=== PATIENT | male | born 1985 | race Caucasian/White ===

== ENCOUNTER 2022-04-24 15:39 | Emergency (ER) | payer OTHER ==
[2022-04-24 16:54] LABS: Absolute Lymphocytes (CBC) 2.1 K/uL (0.7-4.9); Hematocrit 37.7 % (39.6-49.0); Lymphocytes % 17.7 % (15.3-44.8); MPV 6.8 fL (7.6-11.3); RBC Red Blood Cell Count 4.39 M/uL (4.33-5.43)
[2022-04-24 17:11] LABS: Albumin 2.6 g/dL (3.4-5.0); Bilirubin Total 0.2 mg/dL (0.2-1.0); Potassium 3.8 mmol/L (3.5-5.1); Protein, Total 7.9 g/dL (6.4-8.2)
--- NOTE | 2022-04-24 17:13 | RAD REPORT ---
EXAM DESCRIPTION: RAD - Chest Single View - 04/24/2022 5:03 pm CLINICAL HISTORY: COUGH COMPARISON: No comparisons FINDINGS: Lines: None. Lungs: Patchy airspace disease in the lung bases bilaterally. Pleural: Right pleural effusion. Possible small left effusion . Cardiac: The heart size is within normal limits. Mediastinum: Within normal limits. Bones: No acute fractures. Other: None IMPRESSION: Basilar airspace disease bilaterally concerning for pneumonia.
[2022-04-24] MEDS ORDERED: CEFEPIME 2 GM VIAL ONE (17:38)
[2022-04-24] MEDS ORDERED: NA CHLORIDE 0.9% 100 ML IV ONE (17:38)
[2022-04-24] MEDS ORDERED: NA CHLORIDE 0.9% 250 ML ONE (17:38)
[2022-04-24] MEDS ORDERED: NA CHLORIDE 0.9% 500 ML ONE (17:38)
[2022-04-24] MEDS ORDERED: VANCOMYCIN 1 GM/VIAL ONE (17:38)
[2022-04-24 17:51] LABS: SARS-CoV-2 Antigen Rapid Res Negative (Negative)
--- NOTE | 2022-04-24 19:14 | RAD REPORT ---
EXAM DESCRIPTION: CT - Thorax Wo Con - 04/24/2022 6:50 pm CLINICAL HISTORY: Pneumonia, unresolved COMPARISON: No comparisons FINDINGS: Chest Wall: No suspicious thyroid nodules or pathologic lymphadenopathy. Lungs: Consolidative airspace disease is present in the lower lobes bilaterally. The consolidation is more notable around the subpleural portions of the lung. Some nonspecific ground-glass opacities are present in the right middle lobe. Pleura: Small bilateral pleural effusions, right greater than left. Mediastinum/edwardo: No pathologic lymphadenopathy. Pulmonary arteries/Aorta: Limited evaluation without contrast. No aortic aneurysm. Heart: No significant pericardial effusion. Normal heart size. Upper abdomen: No acute abnormality. Bones: No acute abnormality. Scoliosis. All CT scans are performed using dose optimization technique as appropriate and may include automated exposure control or mA/KV adjustment according to patient size. IMPRESSION: Bilateral pleural effusions which are small. Subjacent consolidative airspace disease. T sarah no priors are available for comparison, suspect at least some of these findings are chronic and reactive to the pleural effusions. Pneumonia/ pneumonitis cannot be excluded without comparisons, shanice [place].
--- NOTE | 2022-04-24 20:38 | ER ---
Nurse's Notes [facility] Name: Kashif Lea Age: 36 yrs Sex: Male : 1985 Arrival Date: 04/24/2022 Time: 15:43 Bed 6 Private MD: Diagnosis: Pneumonia, unspecified organism-Bilateral;Dyspnea, unspecified Presentation: 04/24 15:48 Chief complaint: EMS states: toned out for SOB. Upon arrival to pt home - pt 97% SpO2 ld1 room air. admissions counselor reports recent hospitalization for double pneumonia. Coronavirus screen: At this time, the client does not indicate any symptoms associated with coronavirus-19. Ebola Screen: No symptoms or risks identified at this time. Initial Sepsis Screen: Does the patient meet any 2 criteria? No. Patient's initial sepsis screen is negative. Does the patient have a suspected source of infection? No. Patient's initial sepsis screen is negative. Risk Assessment: Do you want to hurt yourself or someone else? Patient reports no desire to harm self or others. Onset of symptoms was April 24, 2022 at 15:50. 15:48 Method Of Arrival: EMS: [facility] ld1 15:48 Acuity: JESENIA 3 ld1 Triage Assessment: 15:50 General: Appears in no apparent distress. comfortable, Behavior is calm, cooperative, ld1 appropriate for age. Pain: Unable to use pain scale. Does not appear to understand pain scale. EENT: No signs and/or symptoms were reported regarding the EENT system. Neuro: Level of Consciousness is awake, alert, Oriented to none. Cardiovascular: Capillary refill < 3 seconds Patient's skin is warm and dry. Rhythm is sinus rhythm. Respiratory: Airway is patent Respiratory effort is even, labored, Breath sounds with crackles bilaterally. the patient has mild shortness of breath Parent/caregiver reports the patient having shortness of breath cough that is. GI: Abdomen is round non-distended. : No signs and/or symptoms were reported regarding the genitourinary system. Derm: No signs and/or symptoms reported regarding the dermatologic system. Musculoskeletal: No signs and/or symptoms reported regarding the musculoskeletal system. Historical: - Allergies: 15:50 No Known Allergies; ld1 - Home Meds: 17:53 Mayitopp 2000 Oral tab 1 tab 2 times per day [Active]; lacosamide 300 oral tab 1 tab 2 ld1 times per day [Active]; glycopyrrolate 1 mg oral tab twice a day [Active]; clobazam 10 mg oral tab 1 tab once daily [Active]; cetirizine 10 mg oral tab 1 tab once daily [Active]; zinc sulfate 50 mg zinc (220 mg) oral cap twice a day [Active]; Vitamin C 1,000 mg Oral tab [Active]; Vitamin D Oral 2000 unit nightly [Active]; - PMHx: 15:50 scoliosis; Cerebral palsy; Seizure; ld1 - PSHx: 17:53 None; ld1 - Immunization history:: Adult Immunizations up to date, Client reports receiving the 2nd dose of the Covid vaccine. - Social history:: Smoking status: Patient denies any tobacco usage or history of. Patient/guardian denies using alcohol. - Family history:: not pertinent. Screenin:52 [facility] ED Fall Risk Assessment (Adult) History of falling in the last 3 months, ld1 including since admission No falls in past 3 months (0 pts). Abuse screen: Denies threats or abuse. Denies injuries from another. Nutritional screening: No deficits noted. Tuberculosis screening: No symptoms or risk factors identified. Assessment: 15:52 Reassessment: See triage assessment. ld1 17:04 Reassessment: Patient appears in no apparent distress at this time. Patient and/or ld1 family updated on plan of care and expected duration. Pain level reassessed. Pt family/caregiver at bedside. Pt awake - RR 21. 17:56 Reassessment: Patient appears in no apparent distress at this time. Patient and/or ld1 family updated on plan of care and expected duration. Pain level reassessed. 23:04 Reassessment: pt accepted to [facility] 4th floor room B428. bb Vital Signs: 15:48 BP 120 / 90; Pulse 95; Resp 26; Temp 97.3(A); Pulse Ox 97% on R/A; Weight 63.05 kg; ld1 Height 5 ft. 6 in. (167.64 cm); Pain 0/10; 17:05 BP 114 / 94; Pulse 93; Resp 26; Pulse Ox 98% on R/A; ld1 17:56 BP 109 / 90; Pulse 96; Resp 22; Temp 97.9(A); Pulse Ox 95% on R/A; ld1 18:12 BP 119 / 95; Pulse 96; Resp 22; Pulse Ox 96% on R/A; ld1 15:48 Body Mass Index 22.43 (63.05 kg, 167.64 cm) ld1 ED Course: 15:43 Patient arrived in ED. kr3 15:44 Wilfrido Barfield MD is Attending Physician. rt 15:48 Iwona Hernández RN is Primary Nurse. ld1 15:50 Triage completed. ld1 15:50 Arm band placed on right wrist. ld1 15:52 Patient has correct armband on for positive identification. Placed in gown. Bed in low ld1 position. map clerk on. Pulse ox on. NIBP on. Door closed. Noise minimized. Warm blanket given. 15:52 No provider procedures requiring assistance completed. ld1 15:53 Iwona Hernández RN is Primary Nurse. ld1 16:00 Inserted saline lock: 20 gauge in right wrist, using aseptic technique. Blood collected.ld1 17:04 Repositioned patient. ld1 17:05 Chest Single View XRAY In Process Unspecified. EDMS 18:49 initiated transfer to [facility]. bd 18:51 CT Chest Wo Con In Process Unspecified. EDMS 19:25 Primary Nurse role handed off by Iwona Hernández RN [facility] 19:38 Attending Physician role handed off by Wilfrido Barfield MD rn 19:38 Edward Shaw MD is Attending Physician. rn 20:[address] Shaw with Dr. Robles from [facility]. mw2 23:04 administrative approval given by Ce Friend/patient has been accepted to [address] to bed B428/ Dr. Perez accepted the patient in transfer/report to be called to [phone]. 23:15 Lucina Zheng, AMY is Primary Nurse. kd3 23:48 Patient transferred, IV remains in place. kd3 Administered Medications: 17:52 Drug: NS 0.9% 500 ml Route: IV; Rate: bolus; Site: right wrist; ld1 18:38 Follow up: Response: No adverse reaction; IV Status: Completed infusion; IV Intake: ld1 500ml 17:52 Drug: Cefepime 2 grams Route: IVPB; Rate: 200 ml/hr; Infused Over: 30 mins; Site: right ld1 wrist; 18:38 Follow up: Response: No adverse reaction; IV Status: Completed infusion; IV Intake: ld1 100ml 18:38 Drug: vancoMYCIN 1 grams Route: IVPB; Infused Over: 2 hrs; Site: right wrist; ld1 23:48 Follow up: Response: No adverse reaction; IV Status: Completed infusion kd3 Medication: 15:52 VIS not applicable for this client. ld1 Intake: 18:38 IV: 100ml; Total: 100ml. ld1 18:38 IV: 500ml; Total: 600ml. ld1 Outcome: 20:38 ER care complete, transfer ordered by . rn 23:47 Transferred by ground EMS kd3 23:47 Condition: stable 23:47 Discharge instructions given to patient, family, Instructed on discharge instructions, follow up and referral plans. Demonstrated understanding of instructions, follow-up care. 23:48 Patient left the ED. kd3 Signatures: Dispatcher [employer] EDMS Vivi Muller Brenda, RN RN bb Edward Shaw MD MD rn Gatti, MyKena mw2 Iwona Hernández RN RN ld1 Lucina Zheng RN RN kd3 Thais Tilley RN RN kr3 Wilfrido Barfield MD MD rt
--- NOTE | 2022-04-24 20:38 | EDPHYS ---
Physician Documentation [facility] Name: Kashif Lea Age: 36 yrs Sex: Male : 1985 Arrival Date: 04/24/2022 Time: 15:43 Bed 6 Private MD: ED Physician Edward Shaw HPI: 04/24 17:12 This 36 yrs old Male presents to ER via EMS with complaints of Shortness Of Breath. rt 17:12 The patient has shortness of breath at rest. Onset: The symptoms/episode began/occurred rt yesterday. Duration: The symptoms are continuous. The patient's shortness of breath has no apparent modifying factors. Unable to obtain HPI due to Baseline intellectual disability. Patient with history of cerebral palsy with recent admission to [facility] for a bilateral pneumonia as well as a pleural effusion resents to the ED with worsening cough. He is still taking clindamycin from his recent pneumonia which was deemed to be an aspiration pneumonia. The patient's sister is providing the history, she states that he has had a cough, nonproductive. She denies any labored breathing. Denies other acute complaints at this time. Symptoms are moderate in severity, no other aggravating alleviating factors.. Historical: - Allergies: 15:50 No Known Allergies; ld1 - Home Meds: 17:53 Keppra 2000 Oral tab 1 tab 2 times per day [Active]; lacosamide 300 oral tab 1 tab 2 ld1 times per day [Active]; glycopyrrolate 1 mg oral tab twice a day [Active]; clobazam 10 mg oral tab 1 tab once daily [Active]; cetirizine 10 mg oral tab 1 tab once daily [Active]; zinc sulfate 50 mg zinc (220 mg) oral cap twice a day [Active]; Vitamin C 1,000 mg Oral tab [Active]; Vitamin D Oral 2000 unit nightly [Active]; - PMHx: 15:50 scoliosis; Cerebral palsy; Seizure; ld1 - PSHx: 17:53 None; ld1 - Immunization history:: Adult Immunizations up to date, Client reports receiving the 2nd dose of the Covid vaccine. - Social history:: Smoking status: Patient denies any tobacco usage or history of. Patient/guardian denies using alcohol. - Family history:: not pertinent. ROS: 17:12 Respiratory: Positive for cough. rt 17:12 Unable to obtain ROS due to Baseline intellectual disability. Exam: 17:12 Head/Face: Normocephalic, atraumatic. Eyes: Pupils equal round and reactive to light, rt extra-ocular motions intact. Lids and lashes normal. Conjunctiva and sclera are non-icteric and not injected. Cornea within normal limits. Periorbital areas with no swelling, redness, or edema. ENT: Nares patent. No nasal discharge, no septal abnormalities noted. Tympanic membranes are normal and external auditory canals are clear. Oropharynx with no redness, swelling, or masses, exudates, or evidence of obstruction, uvula midline. Mucous membranes moist. Neck: Trachea midline, no thyromegaly or masses palpated, and no cervical lymphadenopathy. Supple, full range of motion without nuchal rigidity, or vertebral point tenderness. No Meningismus. Chest/axilla: Normal chest wall appearance and motion. Nontender with no deformity. No lesions are appreciated. Cardiovascular: Regular rate and rhythm with a normal S1 and S2. No gallops, murmurs, or rubs. Normal PMI, no JVD. No pulse deficits. Abdomen/GI: Soft, non-tender, with normal bowel sounds. No distension or tympany. No guarding or rebound. No evidence of tenderness throughout. Skin: Warm, dry with normal turgor. Normal color with no rashes, no lesions, and no evidence of cellulitis. MS/ Extremity: Pulses equal, no cyanosis. Neurovascular intact. Full, normal range of motion. 17:12 Constitutional: The patient appears in obvious distress, Chronically ill-appearing, no acute distress 17:12 Respiratory: Crackles heard on the right lung base, no respiratory distress. Vital Signs: 15:48 BP 120 / 90; Pulse 95; Resp 26; Temp 97.3(A); Pulse Ox 97% on R/A; Weight 63.05 kg; ld1 Height 5 ft. 6 in. (167.64 cm); Pain 0/10; 17:05 BP 114 / 94; Pulse 93; Resp 26; Pulse Ox 98% on R/A; ld1 17:56 BP 109 / 90; Pulse 96; Resp 22; Temp 97.9(A); Pulse Ox 95% on R/A; ld1 18:12 BP 119 / 95; Pulse 96; Resp 22; Pulse Ox 96% on R/A; ld1 15:48 Body Mass Index 22.43 (63.05 kg, 167.64 cm) ld1 MDM: 15:52 Patient medically screened. rt 20:35 Differential diagnosis: Anemia Anxiety Reaction pneumonia, Pneumothorax pulmonary rn edema, Sepsis. Data reviewed: vital signs, nurses notes, lab test result(s), radiologic studies, CT scan, plain films, and as a result, I will admit patient. Counseling: I had a detailed discussion with the patient and/or guardian regarding: the historical points, exam findings, and any diagnostic results supporting the discharge/admit diagnosis, lab results, radiology results, the need to transfer to another facility. Response to treatment: the patient's symptoms have mildly improved after treatment, and as a result, I will admit patient. ED course: Pt accepted for transfer to [facility], [facility], stable for transfer. . 04/24 16:03 Order name: CBC with Diff; Complete Time: 17:11 rt 04/24 16:03 Order name: CMP; Complete Time: 17:11 rt 04/24 16:03 Order name: Lactate w/ 2H reflex if indic.; Complete Time: 17:14 rt 04/24 16:03 Order name: Chest Single View XRAY; Complete Time: 17:14 rt 04/24 16:03 Order name: Blood Culture Adult (2) rt 04/24 17:23 Order name: SARS RAPID; Complete Time: 17:55 ld1 04/24 18:05 Order name: CT Chest Wo Con; Complete Time: 19:16 rt Administered Medications: 17:52 Drug: NS 0.9% 500 ml Route: IV; Rate: bolus; Site: right wrist; ld1 18:38 Follow up: Response: No adverse reaction; IV Status: Completed infusion; IV Intake: ld1 500ml 17:52 Drug: Cefepime 2 grams Route: IVPB; Rate: 200 ml/hr; Infused Over: 30 mins; Site: right ld1 wrist; 18:38 Follow up: Response: No adverse reaction; IV Status: Completed infusion; IV Intake: ld1 100ml 18:38 Drug: vancoMYCIN 1 grams Route: IVPB; Infused Over: 2 hrs; Site: right wrist; ld1 23:48 Follow up: Response: No adverse reaction; IV Status: Completed infusion kd3 Disposition Summary: 04/24/22 20:38 Transfer Ordered Transfer Location: [facility] rn Reason: Higher level of care rn Condition: Stable rn Problem: an ongoing problem rn Symptoms: have improved rn Accepting Physician: (04/24/22 23:48) kd3 Diagnosis - Pneumonia, unspecified organism - Bilateral rn - Dyspnea, unspecified rn Forms: - Medication Reconciliation Form rn - SBAR form rn Signatures: Dispatcher [employer] EDEdward Rowe MD MD rn Dibbern, Lauren RN RN ld1 Lucina Zheng, RN RN kd3 Wilfrido Barfield MD MD rt Corrections: (The following items were deleted from the chart) 23:48 20:38 rn kd3
[2022-04-25 05:13] VITALS: TEMP 97.9
[2022-04-25 05:15] VITALS: BP 119/95; O2SAT 96
== END 2022-04-24 23:48 | disposition short-term general hospital (02) ==
LOC: ER 15:39
DX: J18.9 Pneumonia, unspecified organism (principal); Z20.822 Contact with and (suspected) exposure to COVID-19; G80.9 Cerebral palsy, unspecified
CPT/HCPCS: 87040 ×2; 85025; 36415; 83605; 80053; 71250; 71045; 87811; J3370; J0692; J7050; J7040; 87205

== ENCOUNTER 2022-06-26 13:51 | Inpatient (IN) | payer OTHER ==
--- OUTSIDE RECORDS SUMMARY | 2022-06-26 14:17 | XMS REPORT | Continuity of Care Document ---
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 TABS 0-10 by mouth [place] 00:00: nightly. of Medicin e cloBAZam 10 2021-04 Yes 15mg Take 15 mg Richi MG TABS 0-10 by mouth [place] 00:00: nightly. of Medicin e Lacosamide 2021-04- No 200mg Take 200 [facility] 200 MG TABS 0-10 01-03 mg by [facility] 00:[facility]: 00:00 mouth two of 00 :00 times Medicin daily. e Brand name medically neccessary glycopyrrol Yes [id number] 1mg Take 1 Richi ate 9-28 Tablet by [place] (JEAN-PAUL) 1 00:00: mouth 3 of MG tablet 00 times Medicin daily. e glycopyrrol Yes [id number] 1mg Take 1 Richi ate 9-28 Tablet by [place] (JEAN-PAUL) 1 00:00: mouth 3 of MG tablet 00 times Medicin daily. e clotrimazol Yes [id number] 1{appli Apply 1 [facility] e 9-13 cation} applicatio [facility] (LOTRIMIN) 00:00: n of 1 % cream 00 topically Medic in two times e daily. clotrimazol Yes [id number] 1{appli Apply 1 [facility] e 9-13 cation} [facility]atio [facility] (LOTRIMIN) 00:00: n of 1 % cream 00 topically Medic in two times e daily. clotrimazol Yes [id number] 1{appli Apply 1 [facility] e 9-13 cation} applicatio [facility] (LOTRIMIN) 00:00: n of 1 % cream 00 topically Medic in two times e daily. Scopolamine 2022- No [id number] 1{patch Place 1 Richi 1 MG/3DAYS 12-19 } Patch onto [facility] [id number] 00:00: 00:00 the skin of 00 :00 every 3 Medicin days. e cetirizine, Yes [id number] 10mg Take 1 [facility] ZYRTEC, 10 8-22 Tablet by [place] MG tablet 00:00: mouth of 00 daily. Medicin e cetirizine, Yes [id number] 10mg Take 1 [facility] ZYRTEC, 10 8-22 Tablet by [place] MG tablet 00:00: mouth of 00 daily. Medicin e cetirizine, 2022- No [id number] 10mg Take 1 [facility] ZYRTEC, 10 8-22 02-20 Tablet by [facility] MG tablet 00:00: 00:00 mouth of 00 :00 daily. Medicin e cloBAZam 0 Yes 10mg QD Take [address] [facility] (ONFI) 10 8-12 tablet (10 [facility] mg Tab 00:00: mg total) Medica l tablet 00 by mouth Center nightly. Max Daily Amount: 10 mg cloBAZam Yes 10mg QD Take [address] [facility] (ONFI) 10 8-12 tablet (10 [facility] mg Tab 00:00: mg total) Medica l tablet 00 by mouth Center nightly. Max Daily Amount: 10 mg imipramine 2022- No [id number] TAKE 1 [facility] (TOFRANIL) 5-23 01-03 TABLET(10 [facility]ge 10 MG 00:00: 00:00 MG) BY of tablet 00 :00 MOUTH Medicin EVERY e NIGHT Zinc 15 MG 2021-0 Yes 50mg Take 50 mg [facility] CAPS 3-15 by mouth [place] 16:12: two times of 21 daily. Medicin e Cholecalcif Yes 5000U Take 5,000 [facility] leeroy 3-15 Units by [place] (VITAMIN 16:12: mouth of D3) 125 MCG 21 daily. Medici n (5000 UT) e CAPS atorvastati 2021-0 Yes [id number] 10mg Take 1 [facility] n (LIPITOR) 2-01 Tablet by Col [facility]ge 10 MG 00:00: mouth of tablet 00 daily. Medicin e cetirizine, Yes [id number] 10mg Take 1 [facility] ZYRTEC, 10 2-01 Tablet by [place] MG tablet 00:00: mouth of 00 daily. Medicin e Zinc 15 MG 2021-0 Yes 50mg Take 50 mg [facility] CAPS 1-03 by mouth [place] 13:02: two times of 37 daily. Medicin e Cholecalcif Yes 5000U Take 5,000 [facility] leeroy 1-03 Units by [place] (VITAMIN 13:02: mouth of D3) 125 MCG 37 daily. Medici n (5000 UT) e CAPS imipramine 2020-04 Yes 10mg Take 10 mg [facility] (TOFRANIL) 2-25 by mouth Colle ge 10 MG 00:00: daily. of tablet 00 Medicin e imipramine 2020-04 Yes 10mg Take 10 mg [facility] (TOFRANIL) 2-25 by mouth Colle ge 10 MG 00:00: daily. of tablet 00 Medicin e metoprolol 2020-04 Yes 50mg Take 50 mg [facility] (LOPRESSOR) 2-24 by mouth 3 Co llege 50 MG 00:00: times of tablet 00 daily. Medicin e cetirizine, 2020-04 Yes 10mg Take 10 mg Richi ZYRTEC, 10 2-20 by mouth Colle [facility] MG tablet 00:00: daily. of 00 Medicin e atorvastati 2020-04 Yes 10mg Take 10 mg [facility] n (LIPITOR) 2-19 by mouth [place] 10 MG 00:00: daily. of tablet 00 Medicin e levetiracet Yes 1500mg Take 1,500 [facility] am (KEPPRA) 5-24 mg by [place] 500 MG 00:00: mouth two of tablet 00 times Medicin daily. e levetiracet Yes 1500mg Take 1,500 Richi am (KEPPRA) 5-24 mg by [place] 500 MG 00:00: mouth two of tablet 00 times Medicin daily. e Lacosamide Yes 200mg Take 200 [facility] [place] 200 mg 5-11 mg by ity of tablet 21:04: mouth 2 [place] 25 (two) Medical times Branch daily. Lacosamide Yes 200mg Take 200 [facility] [place] 200 mg 5-11 mg by ity of tablet 21:04: mouth 2 [place] 25 (two) Medical times Branch daily. Lacosamide Yes 200mg Take 200 [facility] [place] 200 mg 5-11 mg by ity of tablet 21:04: mouth 2 [place] 25 (two) Medical times Branch daily. Lacosamide 2021-0 Yes 200mg Take 200 [place] 200 mg 5-11 mg by ity of tablet 21:04: mouth 2 [place] 25 (two) Medical times Branch daily. Lacosamide 2021-0 Yes 200mg Take 200 [place] 200 mg 5-11 mg by ity of tablet 21:04: mouth 2 [place] 25 (two) Medical times Branch daily. levetiracet 2021-0 Yes 1500mg Take 1,500 [facility] am (KEPPRA 5-11 mg by ity of ORAL) 21:00: mouth 2 [place] 40 (two) Medical times Branch daily. phenytoin 1-0 Yes Take by Unive rs 100 mg/4 mL 5-11 mouth 3 ity o f [place] 21:00: (three[place] Medical daily. Branch levetiracet 1-0 Yes 1500mg Take 1,500 [facility] am (KEPPRA 5-11 mg by ity of ORAL) 21:00: mouth [address] [place] [address] 40 (two) Medical times Branch daily. phenytoin 1-0 Yes Take by Unive rs 100 mg/4 mL 5-11 mouth 3 ity o f suspension 21:00: (three) [place] Medical daily. Branch levetiracet 1-0 Yes 1500mg Take 1,500 [facility] am (KEPPRA 5-11 mg by ity of ORAL) 21:00: mouth [address] [place] [address] 40 (two) Medical times Branch daily. phenytoin 1-0 Yes Take by Unive rs 100 mg/4 mL 5-11 mouth 3 ity o f suspension 21:00: (three) [place] Medical daily. Branch levetiracet 1-0 Yes 1500mg Take 1,500 [facility] am (KEPPRA 5-11 mg by ity of ORAL) 21:00: mouth [address] [place] [address] 40 (two) Medical times Branch daily. phenytoin 2021-0 Yes Take by Unive rs 100 mg/4 mL 5-11 mouth 3 ity o f suspension 21:00: (three) [place] times Medical daily. Branch levetiracet 2021-0 Yes 1500mg Take 1,500 [facility] am (KEPPRA 5-11 mg by ity of ORAL) 21:00: mouth 2 [place] 40 (two) Medical times Branch daily. phenytoin 2021-0 Yes Take by Unive rs 100 mg/4 mL 5-11 mouth 3 ity o f suspension 21:00: (three) [place] times Medical daily. Branch Lacosamide 2021-0 Yes 200mg Take 200 [place] 200 mg 5-11 mg by ity of tablet 16:04: mouth 2 [place] 25 (two) Medical times Branch daily. Lacosamide 2021-0 Yes 200mg Take 200 [place] 200 mg 5-11 mg by ity of tablet 16:04: mouth 2 [place] 25 (two) Medical times Branch daily. Lacosamide 2021-0 Yes 200mg Take 200 [place] 200 mg 5-11 mg by ity of tablet 16:04: mouth 2 [place] 25 (two) Medical times Branch daily. Lacosamide 2021-0 Yes 200mg Take 200 [place] 200 mg 5-11 mg by ity of tablet 16:04: mouth 2 [place] 25 (two) Medical times Branch daily. Lacosamide 2021-0 Yes 200mg Take 200 [place] 200 mg 5-11 mg by ity of tablet 16:04: mouth [address] [place] [address] 25 (two) Medical times Branch daily. Lacosamide 2021-0 Yes 200mg Take 200 [place] 200 mg 5-11 mg by ity of tablet 16:04: mouth [address] [place] [address] 25 (two) Medical times Branch daily. Lacosamide 2021-0 Yes 200mg Take 200 [place] 200 mg 5-11 mg by ity of tablet 16:04: mouth [address] [place] [address] 25 (two) Medical times Branch daily. Lacosamide 2021-0 Yes 200mg Take 200 [place] 200 mg 5-11 mg by ity of tablet 16:04: mouth [address] [place] [address] 25 (two) Medical times Branch daily. Lacosamide 2021-0 Yes 200mg Take 200 [place] 200 mg 5-11 mg by ity of tablet 16:04: mouth 2 [place] 25 (two) Medical times Branch daily. levetiracet 2021-0 Yes 1500mg Take 1,500 [facility] am (KEPPRA 5-11 mg by ity of ORAL) 16:00: mouth 2 [place] 40 (two) Medical times Branch daily. phenytoin 2021-0 Yes Take by Unive rs 100 mg/4 mL 5-11 mouth 3 ity o f suspension 16:00: (three) [place] times Medical daily. Branch levetiracet 1-0 Yes 1500mg Take 1,500 [facility] am (KEPPRA 5-11 mg by ity of ORAL) 16:00: mouth 2 [place] 40 (two) Medical times Branch daily. phenytoin 1-0 Yes Take by Unive rs 100 mg/4 mL 5-11 mouth 3 ity o f suspension 16:00: (three) [place] times Medical daily. Branch levetiracet 1-0 Yes 1500mg Take 1,500 [facility] am (KEPPRA 5-11 mg by ity of ORAL) 16:00: mouth 2 [place] 40 (two) Medical times Branch daily. phenytoin 1-0 Yes Take by Unive rs 100 mg/4 mL 5-11 mouth 3 ity o f suspension 16:00: (three) [place] times Medical daily. Branch levetiracet 1-0 Yes 1500mg Take 1,500 [facility] am (KEPPRA 5-11 mg by ity of ORAL) 16:00: mouth 2 [place] 40 (two) Medical times Branch daily. phenytoin 2020-0 Yes Take by Unive rs 100 mg/4 mL 5-11 mouth 3 ity o f suspension 16:00: (three) [place] times Medical daily. Branch levetiracet 1-0 Yes 1500mg Take 1,500 [facility] am (KEPPRA 5-11 mg by ity of ORAL) 16:00: mouth 2 [place] 40 (two) Medical times Branch daily. phenytoin 1-0 Yes Take by Unive rs 100 mg/4 mL 5-11 mouth 3 ity o f suspension 16:00: (three) [place] times Medical daily. Branch levetiracet 1-0 Yes 1500mg Take 1,500 [facility] am (KEPPRA 5-11 mg by ity of ORAL) 16:00: mouth 2 [place] 40 (two) Medical times Branch daily. phenytoin 2021-0 Yes Take by Unive rs 100 mg/4 mL 5-11 mouth 3 ity o f suspension 16:00: (three) [place] times Medical daily. Branch levetiracet 1-0 Yes 1500mg Take 1,500 [facility] am (KEPPRA 5-11 mg by ity of ORAL) 16:00: mouth 2 [place] 40 (two) Medical times Branch daily. phenytoin 2020-0 Yes Take by Unive rs 100 mg/4 mL 5-11 mouth 3 ity o f suspension 16:00: (three) [place] times Medical daily. Branch levetiracet 2020-0 Yes 1500mg Take 1,500 [facility] am (KEPPRA 5-11 mg by ity of ORAL) 16:00: mouth 2 [place] 40 (two) Medical times Branch daily. phenytoin 2020-0 Yes Take by Unive rs 100 mg/4 mL 5-11 mouth 3 ity o f suspension 16:00: (three) [place] times Medical daily. Branch levetiracet 2020-0 Yes 1500mg Take 1,500 [facility] am (KEPPRA 5-11 mg by ity of ORAL) 16:00: mouth 2 [place] 40 (two) Medical times [place] daily. phenytoin 2020-0 Yes Take by Unive rs 100 mg/4 mL 5-11 mouth 3 ity o f suspension 16:00: (three) [place] times Medical daily. Branch predniSONE 2020-0 Yes 20mg Take 20 mg U nivers 20 mg 3-14 by mouth ity of tablet 06:03: every [address] [place] [address] ([facility]) hours. Branch nut.tx.impa 2020-0 Yes Take by Uni vers ired 3-14 mouth as ity of digest/fibe 06:03: needed. Marc as r (VITAL AF 23 Medical 1.2 MICHELE Branch ORAL) ZINC 2020-0 Yes 50mg Take 50 mg Univers PICOLINATE 3-14 by mouth 2 ity of ORAL 06:03: (two) [place] 23 times Medical daily. Branch predniSONE 2020-0 Yes 20mg Take 20 mg U nivers 20 mg 3-14 by mouth ity of tablet 06:03: every 48 [place] [address] ([facility]) hours. Branch nut.tx.impa 2020-0 Yes Take by Uni vers ired 3-14 mouth as ity of digest/fibe 06:03: needed. [facility] as r (VITAL AF 23 Medical 1.2 MICHELE Branch ORAL) ZINC 2020-0 Yes 50mg Take 50 mg Univers PICOLINATE 3-14 by mouth 2 ity of ORAL 06:03: (two) [place] 23 times Medical daily. Branch predniSONE 2020-0 Yes 20mg Take 20 mg U nivers 20 mg 3-14 by mouth ity of tablet 06:03: every 48 [place] 23 ([facility] Medical ) hours. [place] nut.tx.impa 0 Yes Take by Uni vers ired 3-14 mouth as ity of digest/fibe 06:03: needed. [facility] as r (VITAL AF 23 Medical 1.2 MICHELE Branch ORAL) ZINC 2020-0 Yes 50mg Take 50 mg Univers PICOLINATE 3-14 by mouth 2 ity of ORAL 06:03: (two) [place] 23 times Medical daily. Branch predniSONE 2020-0 Yes 20mg Take 20 mg U nivers 20 mg 3-14 by mouth ity of tablet 06:03: every 48 [place] 23 ([facility] Medical ) hours. [place] nut.tx.impa 2020-0 Yes Take by Uni vers ired 3-14 mouth as ity of digest/fibe 06:03: needed. [facility] r (VITAL AF 23 Medical 1.2 MICHELE Branch ORAL) ZINC 2020-0 Yes 50mg Take 50 mg Univers PICOLINATE 3-14 by mouth 2 ity of ORAL 06:03: (two) [place] 23 times Medical daily. Branch predniSONE 2020-0 Yes 20mg Take 20 mg U nivers 20 mg 3-14 by mouth ity of tablet 06:03: every 48 [place] 23 ([facility] Medical ) hours. [place] nut.tx.impa 2020-0 Yes Take by Uni vers ired 3-14 mouth as ity of digest/fibe 06:03: needed. [facility] (VITAL AF 23 Medical 1.2 MICHELE Branch ORAL) ZINC 2020-0 Yes 50mg Take 50 mg Univers PICOLINATE 3-14 by mouth 2 ity of ORAL 06:03: (two) [place] 23 times Medical daily. Branch predniSONE 1-0 Yes 20mg Take 20 mg U nivers 20 mg 3-14 by mouth ity of tablet 06:03: every 48 [place] 23 ([facility] Medical ) hours. Branch nut.tx.impa 2020-0 Yes Take by Uni vers ired 3-14 mouth as ity of digest/fibe 06:03: needed. [facility] as r (VITAL AF 23 Medical 1.2 MICHELE Branch ORAL) ZINC Yes 50mg Take 50 mg Univers PICOLINATE 3-14 by mouth 2 ity of ORAL 06:03: (two) [place] 23 times Medical daily. Branch ASCORBIC Yes 1000mg Take 1,000 U nivers ACID ORAL 3-14 mg by ity of 06:03: mouth 2 [place] [address] (two) Medical times Branch daily. atorvastati Yes 10mg Take 10 mg Univers n (LIPITOR) 3-14 by mouth ity of 10 mg 06:03: daily. [place] tablet 22 Medical Branch cholecalcif Yes 1000U Take 1,000 Univers le[place]oy, 3-14 Units by ity of vitamin D3, 06:03: mouth [place] 25 mcg 22 daily. Medical (1,000 Branch unit) tablet famotidine Yes 40mg 40 mg Univer s 40 mg 3-14 daily. ity of tablet 06:03: [address] Branch Lacosamide Yes 200mg Take 200 [place] 200 mg 3-14 mg by ity of tablet 06:03: mouth 2 [place] [address] (two) Medical times [place] daily. levalbutero Yes .63mg Inhale Uni vers l 0.63 mg/3 3-14 0.63 mg ity o f mL 06:03: every 6 [place] nebulizer (six) Medical solution hours. Branch levetiracet Yes 1500mg Take 1,500 [facility] am (KEPPRA 3-14 mg by ity of ORAL) 06:03: mouth 2 [place] [address] (two) Medical times [place] daily. MELATONIN Yes 6mg Take 6 mg Uni vers ORAL 3-14 by mouth. ity of 06:03: [address] Branch metoprolol Yes 50mg Take 50 mg U nivers tartrate 50 3-14 by mouth 3 it y of mg tablet 06:03: (three) [address] daily[address] Branch phenytoin 0 Yes Take by Unive rs 100 mg/4 mL 3-14 mouth 3 ity o f suspension 06:03: (three) [place] times Medical daily. Branch POTASSIUM Yes Take by Unive rs CHLORIDE 3-14 mouth. ity of ORAL 06:03: [address] ASCORBIC 2021-0 Yes 1000mg Take 1,000 U nivers ACID ORAL 3-14 mg by ity of 06:03: mouth 2 [place] [address] (two) Medical times [place] daily. atorvastati 2020-0 Yes 10mg Take 10 mg Univers n (LIPITOR) 3-14 by mouth ity of 10 mg 06:03: daily. [place] tablet [address] [place] [address] Branch cholecalcif 0 Yes 1000U Take 1,000 [facility] le[place]oy, 3-14 Units by ity of vitamin D3, 06:03: mouth [place] 25 mcg 22 daily. Medical (1,000 Branch unit) tablet famotidine 0 Yes 40mg 40 mg Univer s 40 mg 3-14 daily. ity of tablet 06:03: [address] levalbutero Yes .63mg Inhale Uni vers l 0.63 mg/3 3-14 0.63 mg ity o f mL 06:03: every 6 [place] nebulizer (six) Medical solution hours. Branch MELATONIN 0 Yes 6mg Take 6 mg Uni vers ORAL 3-14 by mouth. ity of 06:03: [address] metoprolol Yes 50mg Take 50 mg U nivers tartrate 50 3-14 by mouth 3 it y of mg tablet 06:03: (three) [address] daily[address] Branch POTASSIUM Yes Take by Unive rs CHLORIDE 3-14 mouth. ity of ORAL 06:03: [address] ASCORBIC Yes 1000mg Take 1,000 U nivers ACID ORAL 3-14 mg by ity of 06:03: mouth 2 [place] [address] (two) [facility] daily. atorvastati 2020-0 Yes 10mg Take 10 mg Univers n (LIPITOR) 3-14 by mouth ity of 10 mg 06:03: daily. [address] cholecalcif 0 Yes 1000U Take 1,000 Univers le[place]oy, 3-14 Units by ity of vitamin D3, 06:03: mouth [place] 25 mcg 22 daily. Medical (1,000 Branch unit) tablet famotidine 0 Yes 40mg 40 mg Univer s 40 mg 3-14 daily. ity of tablet 06:03: [address] levalbutero 0 Yes .63mg Inhale Uni vers l 0.63 mg/3 3-14 0.63 mg ity o f mL 06:03: every 6 [place] nebulizer 22 (six) Medical solution hours. Branch MELATONIN Yes 6mg Take 6 mg Uni vers ORAL 3-14 by mouth. ity of 06:03: [place] [address] Medical Branch metoprolol Yes 50mg Take 50 mg U nivers tartrate 50 3-14 by mouth 3 it y of mg tablet 06:03: (three) [place] [address] times Medical daily. Branch POTASSIUM 0 Yes Take by Unive rs CHLORIDE 3-14 mouth. ity of ORAL 06:03: [place] [address] Medical Branch ASCORBIC Yes 1000mg Take 1,000 U nivers ACID ORAL 3-14 mg by ity of 06:03: mouth 2 [place] [address] (two) Medical times Branch daily. atorvastati Yes 10mg Take 10 mg Univers n (LIPITOR) 3-14 by mouth ity of 10 mg 06:03: daily. [address] Branch cholecalcif Yes 1000U Take 1,000 Univers le[place]oy, 3-14 Units by ity of vitamin D3, 06:03: mouth [place] 25 mcg 22 daily. Medical (1,000 Branch unit) tablet famotidine Yes 40mg 40 mg Univer s 40 mg 3-14 daily. ity of tablet 06:03: [place] [address] Medical Branch levalbutero Yes .63mg Inhale Uni vers l 0.63 mg/3 3-14 0.63 mg ity o f mL 06:03: every 6 [place] nebulizer 22 (six) Medical solution hours. Branch MELATONIN Yes 6mg Take 6 mg Uni vers ORAL 3-14 by mouth. ity of 06:03: [place] [address] Medical Branch metoprolol Yes 50mg Take 50 mg U nivers tartrate 50 3-14 by mouth 3 it y of mg tablet 06:03: (three) [place] [address] times Medical daily. Branch POTASSIUM 0 Yes Take by Unive rs CHLORIDE 3-14 mouth. ity of ORAL 06:03: [place] [address] Medical Branch ASCORBIC 2020-0 Yes 1000mg Take 1,000 U nivers ACID ORAL 3-14 mg by ity of 06:03: mouth 2 [place] [address] (two) Medical times Branch daily. atorvastati 2020-0 Yes 10mg Take 10 mg Univers n (LIPITOR) 3-14 by mouth ity of 10 mg 06:03: daily. [address] Branch cholecalcif 2020-0 Yes 1000U Take 1,000 Univers le[place], 3-14 Units by ity of vitamin D3, 06:03: mouth [place] 25 mcg 22 daily. Medical (1,000 Branch unit) tablet famotidine 2020-0 Yes 40mg 40 mg Univer s 40 mg 3-14 daily. ity of tablet 06:03: [address] levalbutero 0 Yes .63mg Inhale Uni vers l 0.63 mg/3 3-14 0.63 mg ity o f mL 06:03: every 6 [place] nebulizer 22 (six) Medical solution hours. Branch MELATONIN 2020-0 Yes 6mg Take 6 mg Uni vers ORAL 3-14 by mouth. ity of 06:03: [address] metoprolol 0 Yes 50mg Take 50 mg U nivers tartrate 50 3-14 by mouth 3 it y of mg tablet 06:03: (three) [place] [address] times [facility] daily. Branch POTASSIUM Yes Take by Unive rs CHLORIDE 3-14 mouth. ity of ORAL 06:03: [address] ASCORBIC 2020-0 Yes 1000mg Take 1,000 U nivers ACID ORAL 3-14 mg by ity of 06:03: mouth 2 [place] [address] (two) Medical times [place] daily. atorvastati 2020-0 Yes 10mg Take 10 mg Univers n (LIPITOR) 3-14 by mouth ity of 10 mg 06:03: daily. [address] cholecalcif 2020-0 Yes 1000U Take 1,000 [facility] le[place], 3-14 Units by ity of vitamin D3, 06:03: mouth [place] 25 mcg 22 daily. Medical (1,000 Branch unit) tablet famotidine 2020-0 Yes 40mg 40 mg Univer s 40 mg 3-14 daily. ity of tablet 06:03: [address] levalbutero 2020-0 Yes .63mg Inhale Uni vers l 0.63 mg/3 3-14 0.63 mg ity o f mL 06:03: every 6 [place] nebulizer 22 (six) Medical solution hours. Branch MELATONIN Yes 6mg Take 6 mg Uni vers ORAL 3-14 by mouth. ity of 06:03: [address] Branch metoprolol Yes 50mg Take 50 mg U nivers tartrate 50 3-14 by mouth 3 it y of mg tablet 06:03: (three) [place] 22 times Medical daily. Branch POTASSIUM Yes Take by [facility] rs CHLORIDE 3-14 mouth. ity of ORAL 06:03: [address] NaCl 0.9% 2020- No 500mL at 999 Univ ers (NS) bolus 3-14 03-14 mL/hr, 500 it y of infusion 03:45: 03:45 mL, IV [place] 500 mL 00 :00 Infusion, Medical ONCE, 1 Branch dose, 06/18/20 at 2145, STAT predniSONE Yes 20mg Take 20 mg U nivers 20 mg 3-14 by mouth ity of tablet 00:03: every [address] [place] [address] ([facility]) hours. Branch nut.tx.impa Yes Take by Uni vers ired 3-14 mouth as ity of digest/fibe 00:03: needed. Marc as r (VITAL AF 23 Medical 1.2 MICHELE [place] ORAL) ZINC 0 Yes 50mg Take 50 mg Univers PICOLINATE 3-14 by mouth 2 ity of ORAL 00:03: (two) [place] 23 times Medical daily. Branch predniSONE 0 Yes 20mg Take 20 mg U nivers 20 mg 3-14 by mouth ity of tablet 00:03: every [address] [place] [address] ([facility]) hours. Branch nut.tx.impa 0 Yes Take by Uni vers ired 3-14 mouth as ity of digest/fibe 00:03: needed. Marc as r (VITAL AF 23 Medical 1.2 MICHELE [place] ORAL) ZINC 0 Yes 50mg Take 50 mg Univers PICOLINATE 3-14 by mouth 2 ity of ORAL 00:03: (two) [place] 23 times Medical daily. Branch predniSONE 0 Yes 20mg Take 20 mg U nivers 20 mg 3-14 by mouth ity of tablet 00:03: every [address] [place] [address] ([facility]) hours. Branch nut.tx.impa 2021-0 Yes Take by Uni vers ired 3-14 mouth as ity of digest/fibe 00:03: needed. [facility] as r (VITAL AF 23 Medical 1.2 MICHELE Branch ORAL) ZINC 2020-0 Yes 50mg Take 50 mg Univers PICOLINATE 3-14 by mouth 2 ity of ORAL 00:03: (two) [place] 23 times Medical daily. Branch predniSONE 2020-0 Yes 20mg Take 20 mg U nivers 20 mg 3-14 by mouth ity of tablet 00:03: every [address] [place] [address] ([facility] Medical ) hours. Branch nut.tx.impa 2020-0 Yes Take by Uni vers ired 3-14 mouth as ity of digest/fibe 00:03: needed. [facility] as r (VITAL AF 23 Medical 1.2 MICHELE Branch ORAL) ZINC 2020-0 Yes 50mg Take 50 mg Univers PICOLINATE 3-14 by mouth 2 ity of ORAL 00:03: (two) [place] 23 times Medical daily. Branch predniSONE 2020-0 Yes 20mg Take 20 mg U nivers 20 mg 3-14 by mouth ity of tablet 00:03: every 48 [place] [address] ([facility] Medical ) hours. Branch nut.tx.impa 0 Yes Take by Uni vers ired 3-14 mouth as ity of digest/fibe 00:03: needed. [facility] as r (VITAL AF 23 Medical 1.2 MICHELE Branch ORAL) ZINC 2020-0 Yes 50mg Take 50 mg Univers PICOLINATE 3-14 by mouth 2 ity of ORAL 00:03: (two) [place] 23 times Medical daily. Branch predniSONE 2020-0 Yes 20mg Take 20 mg U nivers 20 mg 3-14 by mouth ity of tablet 00:03: every [address] [place] [address] ([facility]) hours. Branch nut.tx.impa 2020-0 Yes Take by Uni vers ired 3-14 mouth as ity of digest/fibe 00:03: needed. [facility] as r (VITAL AF 23 Medical 1.2 MICHELE Branch ORAL) ZINC 2020-0 Yes 50mg Take 50 mg Univers PICOLINATE 3-14 by mouth 2 ity of ORAL 00:03: (two) [place] 23 times Medical daily. Branch predniSONE 2020-0 Yes 20mg Take 20 mg U nivers 20 mg 3-14 by mouth ity of tablet 00:03: every 48 [place] 23 ([facility]) hours. Branch nut.tx.impa 0 Yes Take by Uni vers ired 3-14 mouth as ity of digest/fibe 00:03: needed. [facility] as r (VITAL AF 23 Medical 1.2 [place] Branch ORAL) ZINC 2020-0 Yes 50mg Take 50 mg Univers PICOLINATE 3-14 by mouth 2 ity of ORAL 00:03: (two) [place] 23 times Medical daily. Branch predniSONE 2020-0 Yes 20mg Take 20 mg U nivers 20 mg 3-14 by mouth ity of tablet 00:03: every [address] [place] [address] ([facility]) hours. Branch nut.tx.impa 0 Yes Take by Uni vers ired 3-14 mouth as ity of digest/fibe 00:03: needed. [facility] as r (VITAL AF 23 Medical 1.2 MICHELE Branch ORAL) ZINC 2020-0 Yes 50mg Take 50 mg Univers PICOLINATE 3-14 by mouth 2 ity of ORAL 00:03: (two) [place] 23 times Medical daily. Branch predniSONE 0 Yes 20mg Take 20 mg U nivers 20 mg 3-14 by mouth ity of tablet 00:03: every [address] [place] [address] ([facility]) hours. Branch nut.tx.impa 0 Yes Take by Uni vers ired 3-14 mouth as ity of digest/fibe 00:03: needed. [facility] as r (VITAL AF 23 Medical 1.2 MICHELE Branch ORAL) ZINC 2020-0 Yes 50mg Take 50 mg Univers PICOLINATE 3-14 by mouth 2 ity of ORAL 00:03: (two) [place] 23 times Medical daily. Branch ASCORBIC 2020-0 Yes 1000mg Take 1,000 U nivers ACID ORAL 3-14 mg by ity of 00:03: mouth 2 [place] 22 (two) Medical times Branch daily. atorvastati 2020-0 Yes 10mg Take 10 mg Univers n (LIPITOR) 3-14 by mouth ity of 10 mg 00:03: daily. [place] tablet 22 Medical Branch cholecalcif 2020-0 Yes 1000U Take 1,000 Univers leeroy, 3-14 Units by ity of vitamin D3, 00:03: mouth [place] 25 mcg 22 daily. Medical (1,000 Branch unit) tablet famotidine Yes 40mg 40 mg Univer s 40 mg 3-14 daily. ity of tablet 00:03: Medical Branch levalbutero Yes .63mg Inhale Uni vers l 0.63 mg/3 3-14 0.63 mg ity o f mL 00:03: every 6 [place] nebulizer 22 (six) Medical solution hours. Branch MELATONIN Yes 6mg Take 6 mg Uni vers ORAL 3-14 by mouth. ity of 00:03: Medical Branch metoprolol Yes 50mg Take 50 mg U nivers tartrate 50 3-14 by mouth 3 it y of mg tablet 00:03: (three) [place] [address] times Medical daily. Branch POTASSIUM Yes Take by Unive rs CHLORIDE 3-14 mouth. ity of ORAL 00:03: Medical Branch ASCORBIC Yes 1000mg Take 1,000 U nivers ACID ORAL 3-14 mg by ity of 00:03: mouth 2 [place] [address] (two) Medical times Branch daily. atorvastati Yes 10mg Take 10 mg Univers n (LIPITOR) 3-14 by mouth ity of 10 mg 00:03: daily. [address] Branch cholecalcif Yes 1000U Take 1,000 Univers leeroy, 3-14 Units by ity of vitamin D3, 00:03: mouth [place] 25 mcg 22 daily. Medical (1,000 Branch unit) tablet famotidine Yes 40mg 40 mg Univer s 40 mg 3-14 daily. ity of tablet 00:03: Medical Branch levalbutero Yes .63mg Inhale Uni vers l 0.63 mg/3 3-14 0.63 mg ity o f mL 00:03: every 6 [place] nebulizer 22 (six) Medical solution hours. Branch MELATONIN Yes 6mg Take 6 mg Uni vers ORAL 3-14 by mouth. ity of 00:03: Medical Branch metoprolol 0 Yes 50mg Take 50 mg U nivers tartrate 50 3-14 by mouth 3 it y of mg tablet 00:03: (three) [place] 22 times Medical daily. Branch POTASSIUM 2021-0 Yes Take by Unive rs CHLORIDE 3-14 mouth. ity of ORAL 00:03: [address] ASCORBIC 0 Yes 1000mg Take 1,000 U nivers ACID ORAL 3-14 mg by ity of 00:03: mouth 2 [place] [address] (two) Medical times [place] daily. atorvastati 0 Yes 10mg Take 10 mg Univers n (LIPITOR) 3-14 by mouth ity of 10 mg 00:03: daily. [address] cholecalcif 0 Yes 1000U Take 1,000 Univers leeroy, 3-14 Units by ity of vitamin D3, 00:03: mouth [place] 25 mcg 22 daily. Medical (1,000 Branch unit) tablet famotidine 0 Yes 40mg 40 mg Univer s 40 mg 3-14 daily. ity of tablet 00:03: [address] levalbutero 0 Yes .63mg Inhale Uni vers l 0.63 mg/3 3-14 0.63 mg ity o f mL 00:03: every 6 [place] nebulizer (six) Medical solution hours. Branch MELATONIN Yes 6mg Take 6 mg Uni vers ORAL 3-14 by mouth. ity of 00:03: [address] metoprolol 0 Yes 50mg Take 50 mg U nivers tartrate 50 3-14 by mouth 3 it y of mg tablet 00:03: (three) [address] daily[address] Branch POTASSIUM Yes Take by Unive rs CHLORIDE 3-14 mouth. ity of ORAL 00:03: [address] ASCORBIC 0 Yes 1000mg Take 1,000 U nivers ACID ORAL 3-14 mg by ity of 00:03: mouth 2 [place] [address] (two) [facility] daily. atorvastati 0 Yes 10mg Take 10 mg Univers n (LIPITOR) 3-14 by mouth ity of 10 mg 00:03: daily. [address] cholecalcif 0 Yes 1000U Take 1,000 Univers leeroy, 3-14 Units by ity of vitamin D3, 00:03: mouth [place] 25 mcg 22 daily. Medical (1,000 Branch unit) tablet famotidine 0 Yes 40mg 40 mg Univer s 40 mg 3-14 daily. ity of tablet 00:03: [place] Medical Branch levalbutero Yes .63mg Inhale Uni vers l 0.63 mg/3 3-14 0.63 mg ity o f mL 00:03: every 6 [place] nebulizer 22 (six) Medical solution hours. Branch MELATONIN Yes 6mg Take 6 mg Uni vers ORAL 3-14 by mouth. ity of 00:03: [place] 22 Medical Branch metoprolol 0 Yes 50mg Take 50 mg U nivers tartrate 50 3-14 by mouth 3 it y of mg tablet 00:03: (three) [place] 22 times Medical daily. Branch POTASSIUM Yes Take by Unive rs CHLORIDE 3-14 mouth. ity of ORAL 00:03: [place] [address] Medical Branch ASCORBIC 0 Yes 1000mg Take 1,000 U nivers ACID ORAL 3-14 mg by ity of 00:03: mouth 2 [place] 22 (two) Medical times Branch daily. atorvastati Yes 10mg Take 10 mg Univers n (LIPITOR) 3-14 by mouth ity of 10 mg 00:03: daily. [place] tablet 22 Medical Branch cholecalcif Yes 1000U Take 1,000 [facility] leeroy, 3-14 Units by ity of vitamin D3, 00:03: mouth [place] 25 mcg 22 daily. Medical (1,000 Branch unit) tablet famotidine Yes 40mg 40 mg Univer s 40 mg 3-14 daily. ity of tablet 00:03: [place] Medical Branch levalbutero Yes .63mg Inhale Uni vers l 0.63 mg/3 3-14 0.63 mg ity o f mL 00:03: every 6 [place] nebulizer 22 (six) Medical solution hours. Branch MELATONIN 0 Yes 6mg Take 6 mg Uni vers ORAL 3-14 by mouth. ity of 00:03: [place] [address] Medical Branch metoprolol Yes 50mg Take 50 mg U nivers tartrate 50 3-14 by mouth 3 it y of mg tablet 00:03: (three) [place] 22 times Medical daily. Branch POTASSIUM 0 Yes Take by Unive rs CHLORIDE 3-14 mouth. ity of ORAL 00:03: [place] [address] Medical Branch ASCORBIC 2020-0 Yes 1000mg Take 1,000 U nivers ACID ORAL 3-14 mg by ity of 00:03: mouth 2 [place] [address] (two) Medical times Branch daily. atorvastati 2020-0 Yes 10mg Take 10 mg Univers n (LIPITOR) 3-14 by mouth ity of 10 mg 00:03: daily. [place] tablet Medical Branch cholecalcif 0 Yes 1000U Take 1,000 [facility] leeroy, 3-14 Units by ity of vitamin D3, 00:03: mouth [place] 25 mcg 22 daily. Medical (1,000 Branch unit) tablet famotidine 0 Yes 40mg 40 mg Univer s 40 mg 3-14 daily. ity of tablet 00:03: [address] Branch levalbutero 0 Yes .63mg Inhale Uni vers l 0.63 mg/3 3-14 0.63 mg ity o f mL 00:03: every 6 [place] nebulizer (six) Medical solution hours. Branch MELATONIN 0 Yes 6mg Take 6 mg Uni vers ORAL 3-14 by mouth. ity of 00:03: [address] metoprolol 0 Yes 50mg Take 50 mg U nivers tartrate 50 3-14 by mouth 3 it y of mg tablet 00:03: (three) [address] daily[address] Branch POTASSIUM Yes Take by Unive rs CHLORIDE 3-14 mouth. ity of ORAL 00:03: [address] ASCORBIC 2020-0 Yes 1000mg Take 1,000 U nivers ACID ORAL 3-14 mg by ity of 00:03: mouth 2 [place] [address] (two) Medical times [place] daily. atorvastati 2020-0 Yes 10mg Take 10 mg Univers n (LIPITOR) 3-14 by mouth ity of 10 mg 00:03: daily. [place] tablet 22 [facility] Branch cholecalcif 0 Yes 1000U Take 1,000 Univers leeroy, 3-14 Units by ity of vitamin D3, 00:03: mouth [place] 25 mcg 22 daily. Medical (1,000 Branch unit) tablet famotidine 0 Yes 40mg 40 mg Univer s 40 mg 3-14 daily. ity of tablet 00:03: [address] levalbutero 0 Yes .63mg Inhale Uni vers l 0.63 mg/3 3-14 0.63 mg ity o f mL 00:03: every 6 [place] nebulizer 22 (six) Medical solution hours. Branch MELATONIN 0 Yes 6mg Take 6 mg Uni vers ORAL 3-14 by mouth. ity of 00:03: [place] [address] Medical Branch metoprolol 0 Yes 50mg Take 50 mg U nivers tartrate 50 3-14 by mouth 3 it y of mg tablet 00:03: (three) [place] [address] times Medical daily. Branch POTASSIUM 0 Yes Take by Unive rs CHLORIDE 3-14 mouth. ity of ORAL 00:03: [place] [address] Medical Branch ASCORBIC 0 Yes 1000mg Take 1,000 U nivers ACID ORAL 3-14 mg by ity of 00:03: mouth 2 [place] [address] (two) Medical times [place] daily. atorvastati Yes 10mg Take 10 mg Univers n (LIPITOR) 3-14 by mouth ity of 10 mg 00:03: daily. [place] [facility] 22 Medical Branch cholecalcif Yes 1000U Take 1,000 Univers leeroy, 3-14 Units by ity of vitamin D3, 00:03: mouth [place] 25 mcg 22 daily. Medical (1,000 Branch unit) tablet famotidine Yes 40mg 40 mg Univer s 40 mg 3-14 daily. ity of tablet 00:03: [place] Medical Branch levalbutero Yes .63mg Inhale Uni vers l 0.63 mg/3 3-14 0.63 mg ity o f mL 00:03: every 6 [place] nebulizer 22 (six) Medical solution hours. Branch MELATONIN 0 Yes 6mg Take 6 mg Uni vers ORAL 3-14 by mouth. ity of 00:03: [place] [address] Medical Branch metoprolol Yes 50mg Take 50 mg U nivers tartrate 50 3-14 by mouth 3 it y of mg tablet 00:03: (three) [place] [address] times Medical daily. Branch POTASSIUM 0 Yes Take by Unive rs CHLORIDE 3-14 mouth. ity of ORAL 00:03: [place] [address] Medical Branch ASCORBIC 2020-0 Yes 1000mg Take 1,000 U nivers ACID ORAL 3-14 mg by ity of 00:03: mouth 2 [place] [address] (two) Medical times Branch daily. atorvastati Yes 10mg Take 10 mg Univers n (LIPITOR) 3-14 by mouth ity of 10 mg 00:03: daily. [place] tablet [address] [place] [address] cholecalcif Yes 1000U Take 1,000 Univers leeroy, 3-14 Units by ity of vitamin D3, 00:03: mouth [place] 25 mcg 22 daily. Medical (1,000 Branch unit) tablet famotidine Yes 40mg 40 mg Univer s 40 mg 3-14 daily. ity of tablet 00:03: [address] levalbutero Yes .63mg Inhale Uni vers l 0.63 mg/3 3-14 0.63 mg ity o f mL 00:03: every 6 [place] nebulizer 22 (six) Medical solution hours. Branch MELATONIN Yes 6mg Take 6 mg Uni vers ORAL 3-14 by mouth. ity of 00:03: [address] metoprolol Yes 50mg Take 50 mg U nivers tartrate 50 3-14 by mouth 3 it y of mg tablet 00:03: (three) [place] 22 times Medical daily. Branch POTASSIUM Yes Take by Unive rs CHLORIDE 3-14 mouth. ity of ORAL 00:03: [address] iohexol 2020- No 120mL 120 mL, Unive rs (OMNIPAQUE 3-04 03-04 Intravenou it y of 350 19:15: 19:08 s, ONCE, 1 [place] BULK-150 00 :00 dose, [facility] Medica l mL) 06/09/20 at Branch injection 1315, 120 mL Routine Lacosamide Yes 200mg Take 200 [facility] (VIMPAT) 3-01 mg by College 200 MG/20ML 00:00: mouth two o f SOLN 00 times Medicin daily. e Aspirin 81 Yes 81mg Take 81 mg [facility] MG tablet 3-01 by mouth Colleg e 00:00: daily. of 00 Medicin e Lacosamide Yes 200mg Take 200 [facility] (VIMPAT) 3-01 mg by College 200 MG/20ML 00:00: mouth two o f SOLN 00 times Medicin daily. e No known No Univers medications ity of [facility] No known [facility] Immunizations Ordered Immunization Filled Immunization Date Status Commen ts Source Name Name Influenza Allyssa-PF 2021-04-10 Completed [facility] 00:00:00 of Medicine Influenza Quad-PF 2021-04-10 Completed [facility] 00:00:00 of Medicine Influenza Quad-PF 2021-04-10 Completed [facility] 00:00:00 of Medicine Influenza Quad-PF 2021-04-10 Completed [facility] 00:00:00 of Medicine Influenza Quad-PF 2021-04-10 Completed [facility] 00:00:00 of Medicine Vital Signs Vital Name Observation Time Observation Value Comments Source Systolic blood 2022-05-28 108 mm[Hg] [facility] pressure 16:44:00 of Medicine Diastolic blood 2022-05-28 74 mm[Hg] [facility] ge pressure 16:44:00 of Medicine Heart rate 2022-05-28 70 /min [facility] 16:44:00 of Medicine Body temperature 2022-05-28 36.28 Mary [facility] Raudel ege 16:44:00 of Medicine Body height 2022-05-28 180.3 cm [facility] 16:44:00 of Medicine Body weight 2022-05-28 64.864 kg 75.5 lbs (blue [facility] e 16:44:00 wc) of Medicine BMI 2022-05-28 19.94 kg/m2 [facility] 16:44:00 of Medicine Oxygen saturation 2022-05-28 95 /min [facility] in Arterial blood 16:44:00 of Medicin e by Pulse oximetry HEIGHT 2022-04-25 180.3 cm 01:00:00 WEIGHT 2022-04-25 65.726 kg 01:00:00 HEIGHT 2022-04-25 180.3 cm 01:00:00 WEIGHT 2022-04-25 65.726 kg 01:00:00 HEIGHT 2022-04-25 180.3 cm 01:00:00 WEIGHT 2022-04-25 65.726 kg 01:00:00 HEIGHT 2022-04-10 180.3 cm 18:22:00 WEIGHT 2022-04-10 67.586 kg 18:22:00 HEIGHT 2022-04-10 180.3 cm 18:22:00 WEIGHT 2022-04-10 67.586 kg 18:22:00 HEIGHT 2022-04-10 180.3 cm 18:22:00 WEIGHT 2022-04-10 67.586 kg 18:22:00 Systolic blood 2022-04-10 138 mm[Hg] [facility] pressure 16:52:00 of Medicine Diastolic blood 2022-04-10 92 mm[Hg] [facility] ge pressure 16:52:00 of Medicine Heart rate 2022-04-10 90 /min [facility] 16:52:00 of Medicine Body temperature 2022-04-10 36.56 Mary [facility] ege 16:52:00 of Medicine Body height 2022-04-10 180.3 cm [facility] 16:52:00 of Medicine Body weight 2022-04-10 67.586 kg [facility] 16:52:00 of Medicine BMI 2022-04-10 20.78 kg/m2 [facility] 16:52:00 of Medicine Systolic blood 2022-04-10 116 mm[Hg] [facility] pressure 15:37:00 of Medicine Diastolic blood 2022-04-10 80 mm[Hg] [facility] ge pressure 15:37:00 of Medicine Heart rate 2022-04-10 84 /min [facility] 15:37:00 of Medicine Body temperature 2022-04-10 36.5 Mary [facility] 15:37:00 of Medicine Body height 2022-04-10 180.3 cm [facility] 15:37:00 of Medicine Body weight 2022-04-10 67.722 kg 75.5 lbs (blue [facility] 15:37:00 wc) of Medicine BMI 2022-04-10 20.82 kg/m2 [facility] 15:37:00 of Medicine Oxygen saturation 2022-04-10 94 /min [facility] in Arterial blood 15:37:00 of Medicin e by Pulse oximetry HEIGHT 2022-03-26 180.3 cm 00:00:00 WEIGHT 2022-03-18 75.5 kg 06:00:00 HEIGHT 2022-03-08 180.3 cm 19:20:00 WEIGHT 2022-03-08 63.504 kg 19:20:00 HEIGHT 2022-03-26 180.3 cm 00:00:00 WEIGHT 2022-03-18 75.5 kg 06:00:00 HEIGHT 2022-03-08 180.3 cm 19:20:00 WEIGHT 2022-03-08 63.504 kg 19:20:00 HEIGHT 2022-03-26 180.3 cm 00:00:00 WEIGHT 2022-03-18 75.5 kg 06:00:00 HEIGHT 2022-03-08 180.3 cm 19:20:00 WEIGHT 2022-03-08 63.504 kg 19:20:00 HEIGHT 2021-11-24 180.3 cm 13:00:00 WEIGHT 2021-11-24 63.413 kg 13:00:00 WEIGHT 2021-11-23 68.04 kg 09:35:00 HEIGHT 2021-11-23 180.3 cm 09:35:00 HEIGHT 2021-11-24 180.3 cm 13:00:00 WEIGHT 2021-11-24 63.413 kg 13:00:00 WEIGHT 2021-11-23 68.04 kg 09:35:00 HEIGHT 2021-11-23 180.3 cm 09:35:00 HEIGHT 2021-11-24 180.3 cm 13:00:00 WEIGHT 2021-11-24 63.413 kg 13:00:00 WEIGHT 2021-11-23 68.04 kg 09:35:00 HEIGHT 2021-11-23 180.3 cm 09:35:00 Systolic blood 2021-08-01 122 mm[Hg] [facility] pressure 18:43:00 of Medicine Diastolic blood 2021-08-01 90 mm[Hg] [facility] ge pressure 18:43:00 of Medicine Heart rate 2021-08-01 99 /min [facility] 18:43:00 of Medicine Body height 2021-08-01 180.3 cm [facility] 18:43:00 of Medicine Body weight 2021-08-01 66.679 kg [facility] 18:43:00 of Medicine BMI 2021-08-01 20.50 kg/m2 [facility] 18:43:00 of Medicine Systolic blood 2021-04-10 99 mm[Hg] [facility] pressure 18:52:00 of Medicine Diastolic blood 2021-04-10 66 mm[Hg] [facility] ge pressure 18:52:00 of Medicine Heart rate 2021-04-10 76 /min [facility] 18:52:00 of Medicine Body temperature 2021-04-10 35.89 Mary [facility]aud[facility] ege 18:52:00 of Medicine Body height 2021-04-10 180.3 cm [facility] 18:52:00 of Medicine Body weight 2021-04-10 66.769 kg yellow wc 62.4 [facility] 18:52:00 lbs of Medicine BMI 2021-04-10 20.53 kg/m2 [facility] 18:52:00 of Medicine Oxygen saturation 2021-04-10 100 /min [facility] in Arterial blood 18:52:00 of Medicin e by Pulse oximetry Systolic blood 2020-08-16 102 mm[Hg] University of pressure 21:05:00 [facility] Diastolic blood 2020-08-16 72 mm[Hg] University o f pressure 21:05:00 [facility] Heart rate 2020-08-16 106 /min University 21:05:00 [facility] Oxygen saturation 2020-08-16 100 /min University in Arterial blood 21:05:00 [facility] by Pulse oximetry Branch Systolic blood 2020-06-19 130 mm[Hg] University of pressure 06:00:00 [facility] Diastolic blood 2020-06-19 96 mm[Hg] University o f pressure 06:00:00 [facility] Heart rate 2020-06-19 115 /min University 06:00:00 [facility] Respiratory rate 2020-06-19 17 /min University 06:00:00 [facility] Oxygen saturation 2020-06-19 96 /min O[facility] of in Arterial blood 06:00:00 [facility] by Pulse oximetry Branch Body temperature 2020-06-19 37.28 Mary University of 02:20:00 [facility] Body height 2020-06-19 180.3 cm University 02:20:00 [facility] Body weight 2020-06-19 65.772 kg University of 02:20:00 [facility] BMI 2020-06-19 20.22 kg/m2 University 02:20:00 [facility] Systolic blood 2020-06-09 114 mm[Hg] University of pressure 21:00:00 [facility] Diastolic blood 2020-06-09 96 mm[Hg] University o f pressure 21:00:00 [facility] Heart rate 2020-06-09 112 /min University of 21:00:00 [facility] Respiratory rate 2020-06-09 16 /min University of 21:00:00 [facility] Oxygen saturation 2020-06-09 98 /min University of in Arterial blood 21:00:00 [facility] by Pulse oximetry Branch Body temperature 2020-06-09 36.44 Mary University of 17:30:00 [facility] Body weight 2020-06-09 68.04 kg University of 17:30:00 [facility] BMI 2020-06-09 22.81 kg/m2 University of 17:30:00 [facility] Height 2020-05-06 172.72 CM 23:28:00 Weight 2020-05-06 61.23 KG 23:28:00 Weight 2020-05-06 79.37 KG 16:00:00 Systolic blood 2020-05-01 120 mm[Hg] University of pressure 21:37:00 [facility] Diastolic blood 2020-05-01 76 mm[Hg] University o f pressure 21:37:00 [facility] Heart rate 2020-05-01 112 /min University of 21:37:00 [facility] Body temperature 2020-05-01 36.44 Mary University of 21:37:00 [facility] Body weight 2020-05-01 68.04 kg University of 21:37:00 [facility] BMI 2020-05-01 22.81 kg/m2 University of 21:37:00 [facility] Oxygen saturation 2020-05-01 96 /min University of in Arterial blood 21:37:00 [facility] by Pulse oximetry Branch Systolic blood 2022-05-02 120 mm[Hg] [facility] pressure 16:11:00 [facility] Diastolic blood 2022-05-02 78 mm[Hg] [facility] pressure 16:11:00 [facility] Heart rate 2022-05-02 106 /min [facility] 16:11:00 [facility] Body temperature 2022-05-[address] [facility] 16:11:00 [facility] Respiratory rate 2022-05-02 18 /min [facility] 16:11:00 [facility] Oxygen saturation 2022-05-02 95 /min [facility] in Arterial blood 16:11:00 Medical Ce nter by Pulse oximetry Body height 2022-04-25 180.3 cm [facility] 01:00:00 [facility] Body weight 2022-04-25 65.726 kg [facility] Litajaja 01:00:00 [facility] BMI 2022-04-25 20.21 kg/m2 [facility] Loulou 01:00:00 Medical Center Procedures Procedure Date / Time Performing Clinician Source Performed HOME HE[facility] 485 2022-06-02 06:01:00 Doctor Unassigned, Denise weaver [facility] COMPREHENSIVE METABOLIC 2022-05-28 18:37:00 Maame López [facility] Medicine CBC W/AUTO DIFF WITH 2022-05-28 18:37:00 Maame López [facility] XR CHEST 2 VIEWS 2022-05-28 10:20:00 Maame López [facility] POCT-GLUCOSE METER 2022-05-02 16:19:00 Hiren Rosado [facility] POCT-GLUCOSE METER 2022-05-02 11:16:00 Hiren Rosado [facility] POCT-GLUCOSE METER 2022-05-02 06:27:00 Hiren Rosado [facility] CBC W/PLT COUNT & AUTO 2022-05-02 05:31:[address] Jonathan Ros[address] [facility] DIFFERENTIAL Formerly Named [facility] CBC W/PLT COUNT & AUTO 2022-05-02 05:31:[address] Ros[address] [facility] DIFFERENTIAL Formerly Named [facility] BASIC METABOLIC PANEL 2022-05-02 05:31:00 Jonathan Rosado [facility] MAGNESIUM 2022-05-02 05:31:00 Hiren Rosado [facility] PHOSPHORUS 2022-05-02 05:31:00 Hiren Rosado [facility] POCT-GLUCOSE METER 2022-05-01 23:12:00 Hiren Rosado [facility] POCT-GLUCOSE METER 2022-05-01 16:17:00 Hiren Rosado [facility] POCT-GLUCOSE METER 2022-05-01 11:25:00 Hiren Rosado [facility] POCT-GLUCOSE METER 2022-05-01 06:29:00 Hiren Rosado [facility] CBC W/PLT COUNT & AUTO 2022-05-01 03:04:00 Jonathan Rosado [facility] [place] [facility] CBC W/PLT COUNT & AUTO 2022-05-01 03:04:00 Alonzo [facility] BASIC METABOLIC PANEL 2022-05-01 03:04:00 Jonathan Rosado [facility] MAGNESIUM 2022-05-01 03:04:00 Hiren Rosado [facility] PHOSPHORUS 2022-05-01 03:04:00 Hiren Rosado [facility] POCT-GLUCOSE METER 2022-04-30 23:41:00 Hiren Rosado [facility] POCT-GLUCOSE METER 2022-04-30 17:43:00 Hiren Rosado [facility] XR CHEST 1 VIEW PORTABLE 2022-04-30 11:25:00 Yuri V[address] [facility] CBC W/PLT COUNT & AUTO 2022-04-30 03:22:00 Jonathan Rosado [facility] CBC W/PLT COUNT & AUTO 2022-04-30 03:22:00 Jonathan Rosado [facility] BASIC METABOLIC PANEL 2022-04-30 03:22:00 Jonathan Rosado [facility] MAGNESIUM 2022-04-30 03:22:00 Hiren Rosado [facility] PHOSPHORUS 2022-04-30 03:22:00 Hiren Rosado [facility] POCT-GLUCOSE METER 2022-04-29 07:12:00 Hiren Rosado [facility] CBC W/PLT COUNT & AUTO 2022-04-29 06:05:00 Jonathan Rosado [facility] CBC W/PLT COUNT & AUTO 2022-04-29 06:05:00 Al[place] [facility] BASIC METABOLIC PANEL 2022-04-29 06:05:00 Jonathan Rosado [facility] MAGNESIUM 2022-04-29 06:05:00 Hiren Rosado [facility] PHOSPHORUS 2022-04-29 06:05:00 Hiren Rosado [facility] REPORT OF PROCEDURE - 2022-04-28 14:06:30 [facility] ENDOSCOPY URL [facility] EGD, WITH PEG TUBE 2022-04-28 13:03:00 [facility] INSERTION [facility] CBC W/PLT COUNT & AUTO 2022-04-28 06:19:00 Alonzo [facility] CBC W/PLT COUNT & AUTO 2022-04-28 06:19:00 Al[place] BASIC METABOLIC PANEL 2022-04-28 06:19:00 Alonzo [facility] MAGNESIUM 2022-04-28 06:19:00 Hiren Rosado [facility] FL ESOPH SWALLOW FUNCT 2022-04-27 14:30:[address] [facility] WITH CINE VIDEO Center MRSA SCREEN 2022-04-27 11:57:00 Hiren Rosado [facility] CBC W/PLT COUNT & AUTO 2022-04-27 04:29:00 Alonzo [facility] CBC W/PLT COUNT & AUTO 2022-04-27 04:29:00 Al[place]zo [facility] BASIC METABOLIC PANEL 2022-04-27 04:29:00 Alonzo [facility] MAGNESIUM 2022-04-27 04:29:00 Alonzo [facility] VANCOMYCIN LEVEL, TROUGH 2022-04-26 11:56:00 Mena Gonzales [facility] CBC W/PLT COUNT & AUTO 2022-04-26 04:55:00 Alonzo [facility] DIFFERENTIAL Formerly Named [facility] CBC W/PLT COUNT & AUTO 2022-04-26 04:55:00 Alonzo [facility] DIFFERENTIAL Formerly Named [facility] BASIC METABOLIC PANEL 2022-04-26 04:55:00 Alonzo [facility] MAGNESIUM 2022-04-26 04:55:00 Al[place] [facility] CT CHEST WITH IV CONTRAST 2022-04-25 22:07:00 Yuri Vora [facility] XR CHEST 1 VIEW PORTABLE 2022-04-25 09:48:[address] [facility] / BEDSIDE Formerly Named [facility] STREP PNEUMONIAE ANTIGEN 2022-04-25 09:44:00 Slime Perez [facility] BLOOD CULTURE 2022-04-25 04:38:00 Chris [facility] CBC W/PLT COUNT & AUTO 2022-04-25 04:32:00 [facility] COMPREHENSIVE METABOLIC 2022-04-25 04:32:00 Slime Perez [facility] PROTHROMBIN TIME/INR 2022-04-25 04:32:00 Slime Perez [facility] MAGNESIUM 2022-04-25 04:32:00 Slime Perez [facility] PHOSPHORUS 2022-04-25 04:32:00 Chris Slime [facility] CBC W/PLT COUNT & AUTO 2022-04-25 04:32:00 Chris [facility] PROCALCITONIN 2022-04-25 04:32:00 Chris [facility] BLOOD CULTURE 2022-04-25 04:31:00 Chris [facility] XR CHEST 1 VIEW PORTABLE 2022-04-19 07:36:00 Justin Hewitt [facility] Nita Center XR CHEST 1 VIEW PORTABLE 2022-04-18 07:14:00 Justin Hewitt [facility] Nita [place] BASIC METABOLIC PANEL 2022-04-18 05:19:00 [facility] MAGNESIUM 2022-04-18 05:19:00 [facility] XR CHEST 1 VIEW PORTABLE 2022-04-17 07:46:00 Justin Hewitt [facility] Nita [place] BASIC METABOLIC PANEL 2022-04-17 05:53:00 [facility] MAGNESIUM 2022-04-17 05:53:00 [facility] CBC (HEMOGRAM ONLY) 2022-04-17 05:53:00 [facility] XR CHEST 1 VIEW PORTABLE 2022-04-16 10:32:00 Hemal Webster [facility] [place] [facility] CHEST 1 VIEW PORTABLE 2022-04-16 07:01:00 Justin Hewitt [facility] Nita [place] BASIC METABOLIC PANEL 2022-04-16 05:35:00 [facility] MAGNESIUM 2022-04-16 05:35:[address] [facility] [address] CHEST WITHOUT IV 2022-04-15 11:03:00 [facility] VANCOMYCIN LEVEL, TROUGH 2022-04-15 07:36:00 Stefanie Wong [facility] XR CHEST 1 VIEW PORTABLE 2022-04-15 07:12:00 Justin Hewitt [facility] Nita [place] BLOOD CULTURE 2022-04-15 04:52:00 [facility]ENOUS 2022-04-15 04:52:00 Lisa [facility] BLOOD CULTURE 2022-04-15 04:51:00 [facility] BASIC [facility]OLIC PANEL 2022-04-15 03:52:00 [facility] 2022-04-15 03:52:00 [facility] CBC (HEMOGRAM ONLY) 2022-04-15 03:52:00 [facility] XR CHEST 1 VIEW PORTABLE 2022-04-14 08:45:[address] [facility] / BEDSIDE [place] BASIC METABOLIC PANEL 2022-04-14 06:13:00 [facility]UM 2022-04-14 06:13:00 [facility] XR CHEST 1 VIEW PORTABLE 2022-04-13 16:11:[address] [facility] LACTATE DEHYDROGENASE 2022-04-13 15:05:00 [facility] [place] BASIC METABOLIC PANEL 2022-04-13 04:11:00 [facility] MAGNESIUM 2022-04-13 04:11:00 [facility] CBC (HEMOGRAM ONLY) 2022-04-13 04:11:00 [facility] TSH/FREE T4 IF INDICATED 2022-04-13 04:11:00 [facility] HIGH SENSITIVITY TROPONIN 2022-04-12 20:14:00 [facility] ECG 12-LEAD 2022-04-12 19:01:28 [facility] VANCOMYCIN LEVEL, TROUGH 2022-04-12 05:42:00 Lauren Ramos [facility] BASIC METABOLIC PANEL 2022-04-12 05:42:00 [facility] MAGNESIUM 2022-04-12 05:42:00 [facility] XR ABDOMEN/KUB 1 VIEW 2022-04-11 18:56:00 [facility] CT CHEST WITHOUT IV 2022-04-11 15:29:00 Rahul Evrin [facility] Center AFB CULTURE + SMEAR 2022-04-11 11:41:00 Rahul Ervin [facility] (NON-SPUTUM) Center BODY FLUID CULTURE + GRAM 2022-04-11 11:40:[address] [facility] STAIN Center FUNGUS CULTURE + SMEAR 2022-04-11 11:40:00 Rahul Ervin [facility] BODY FLUID CELL COUNT 2022-04-11 11:36:[address] [facility] WITH DIFFERENTIAL Center PH, BODY FLUID 2022-04-11 11:35:00 Rahul Ervin [facility] LACTATE DEHYDROGENASE 2022-04-11 11:34:[address] [facility] ([facility]), BODY FLUID Center GLUCOSE, BODY FLUID 2022-04-11 11:34:00 [facility] XR CHEST 1 VIEW PORTABLE 2022-04-11 10:55:[address] [facility] / BEDSIDE Center CBC W/PLT COUNT & AUTO 2022-04-11 05:29:00 Yvonne Ramos [facility] BASIC METABOLIC PANEL 2022-04-11 05:29:00 Yvonne Ramos [facility] MAGNESIUM 2022-04-11 05:29:00 Yvonne Ramos [facility] PHOSPHORUS 2022-04-11 05:29:00 [facility] W/[facility]T COUNT & AUTO 2022-04-11 05:29:00 Yvonne Ramos [facility] PROCALCITONIN 2022-04-11 05:29:00 [facility] LACTATE DEHYDROGENASE 2022-04-11 05:29:[address] [facility] ([facility] [place] PROTEIN, TOTAL 2022-04-11 05:29:00 Rahul Ervin [facility] MRSA SCREEN 2022-04-11 00:41:00 Yvonne Ramos [facility] BLOOD GAS, VENOUS 2022-04-10 22:34:00 Irene [facility] SARS-COV2/INFLUENZA/RSV 2022-04-10 20:58:00 [facility] BLOOD CULTURE 2022-04-10 19:54:00 [facility] PROTHR[facility] TIME/INR 2022-04-10 19:54:00 [facility] APTT 2022-04-10 19:54:00 [facility] CBC W/PLT COUNT & AUTO 2022-04-10 19:52:00 Irene, [facility] DIFFERENTIAL [place] CBC W/PLT COUNT & AUTO 2022-04-10 19:52:00 Irene [facility] DIFFERENTIAL [place] LACTIC ACID, VENOUS 2022-04-10 19:52:00 Irene [facility] COMPREHENSIVE METABOLIC 2022-04-10 19:52:00 Irene, [facility] PANEL [place] XR CHEST 1 VIEW PORTABLE 2022-04-10 18:43:00 Irene [facility] / BEDSIDE Center COMPREHENSIVE METABOLIC 2022-04-10 17:56:00 Maame López [facility] Medicine CBC W/AUTO DIFF WITH 2022-04-10 17:56:00 Maame López [facility] Medicine VITAMIN D 25 HYDROXY 2022-04-10 17:56:00 Maame López [facility] IRON+TIBC+%SAT 2022-04-10 17:56:00 Maame L[facility]pez [facility] SUCTION MACHINE 2022-04-10 11:17:02 [facility] POCT-GLUCOSE METER 2022-03-31 12:09:00 Keyona Spann [facility] POCT-GLUCOSE METER 2022-03-31 05:49:00 [facility]Key[facility] CBC W/PLT COUNT & AUTO 2022-03-31 03:10:00 [facility] W/PLT COUNT & AUTO 2022-03-31 03:10:00 Namita [facility] BASIC METABOLIC PANEL 2022-03-31 03:10:00 [facility] MAGNESIUM 2022-03-31 03:10:00 [facility] PHOSPHORUS 2022-03-31 03:10:00 [facility] POCT-GLUCOSE METER 2022-03-31 00:29:00 Nalam, [facility] POCT-GLUCOSE METER 2022-03-30 17:27:00 [facility] POCT-GLUCOSE METER 2022-03-30 12:24:00 Nalam, [facility] CBC W/PLT COUNT & AUTO 2022-03-30 03:24:00 [facility] W/[facility]T COUNT & AUTO 2022-03-30 03:24:00 [facility] METABOLIC PANEL 2022-03-30 03:24:00 [facility] MAGNESIUM 2022-03-30 03:24:00 [facility] PHOSPHORUS 2022-03-30 03:24:00 Namita, [facility] POCT-GLUCOSE METER 2022-03-30 00:43:00 Nalam, [facility] POCT-GLUCOSE METER 2022-03-29 17:50:00 Nalam, [facility] POCT-GLUCOSE METER 2022-03-29 13:09:00 Nalam, [facility] POCT-GLUCOSE METER 2022-03-29 12:09:00 Keyona Spann Jaelyn [facility] CBC W/PLT COUNT & AUTO 2022-03-29 11:26:00 [facility] CBC W/PLT COUNT & AUTO 2022-03-29 11:26:00 Namita, [facility] DIFFERENTIAL [facility] FL ESOPH SWALLOW FUNCT 2022-03-29 09:40:00 Carlos [facility] WITH CINE VIDEO Center XR CHEST 1 VIEW PORTABLE 2022-03-29 06:52:00 Namita, [facility] / BEDSIDE [facility] BASIC METABOLIC PANEL 2022-03-29 04:23:00 Namita, [facility] MAGNESIUM 2022-03-29 04:23:00 Namita, [facility] Dung Center PHOSPHORUS 2022-03-29 04:23:00 Namita, [facility]ST 1 VIEW PORTABLE 2022-03-28 06:54:00 Namita, [facility] / BEDSIDE [facility] CBC W/PLT COUNT & AUTO 2022-03-28 03:23:00 [facility], [facility] DIFFERENTIAL [facility] CBC W/PLT COUNT & AUTO 2022-03-28 03:23:00 [facility], [facility] S [facility] DIFFERENTIAL [facility] BASIC METABOLIC PANEL 2022-03-28 03:22:00 Namita, Les [facility] MAGNESIUM 2022-03-28 03:22:00 Namita, Les [facility] PHOSPHORUS 2022-03-28 03:22:00 [facility], [facility] Dung Center ECG 12-LEAD 2022-03-27 10:40:43 Carlos [facility] XR CHEST 1 VIEW PORTABLE 2022-03-27 06:56:00 Namita, [facility] / BEDSIDE [facility] CBC W/PLT COUNT & AUTO 2022-03-27 03:18:00 Namita, Les [facility] DIFFERENTIAL [place] CBC W/PLT COUNT & AUTO 2022-03-27 03:18:[address] [facility] DIFFERENTIAL [facility] BASIC METABOLIC PANEL 2022-03-27 03:18:00 [facility]ita [facility] MAGNESIUM 2022-03-27 03:18:00 [facility]ita [facility] PHOSPHORUS 2022-03-27 03:18:00 Namita [facility] PERIPHERAL BLOOD SMEAR - 2022-03-27 03:18:00 [facility] PATHOLOGIST REVIEW [facility] LEVETIRACETAM LEVEL 2022-03-27 03:18:00 [facility]-TYPE NATRIURETIC FACTOR 2022-03-27 03:17:00 [address] [facility] (BNP) Center POCT-GLUCOSE METER 2022-03-26 17:48:00 Jonathan Lowe [facility] POCT-GLUCOSE METER 2022-03-26 11:30:[address] [facility] POCT-GLUCOSE METER 2022-03-26 05:44:00 Ina [facility] CBC W/PLT COUNT & AUTO 2022-03-26 04:58:00 Tavia Domínguez [facility] CBC W/PLT COUNT & AUTO 2022-03-26 04:58:[address] [facility] DIFFERENTIAL [facility] BASIC METABOLIC PANEL 2022-03-26 04:58:00 [facility]UM 2022-03-26 04:58:00 [facility] PHOSPHORUS 2022-03-26 04:58:00 [facility]ita [facility] XR CHEST 1 VIEW PORTABLE 2022-03-26 01:30:00 Namita [facility] / BEDSIDE [facility] BASIC METABOLIC PANEL 2022-03-25 16:17:00 Fili, [facility] MAGNESIUM 2022-03-25 16:17:00 Fili, [facility] PHOSPHORUS 2022-03-25 16:17:00 Fili, [facility] XR ABDOMEN/KUB 1 VIEW 2022-03-25 11:45:00 [facility] PORTABLE [facility] POCT-GLUCOSE METER 2022-03-25 11:26:00 Aman Buckley [facility] POCT-GLUCOSE METER 2022-03-25 07:01:00 [facility]LO[facility], ARTERIAL 2022-03-25 03:39:00 Fili, [facility] CBC W/PLT COUNT & AUTO 2022-03-25 03:38:00 Tavia Domínguez [facility] CBC W/PLT COUNT & AUTO 2022-03-25 03:38:00 Namita [facility] DIFFERENTIAL [facility] BASIC METABOLIC PANEL 2022-03-25 03:38:00 Fili, [facility] MAGNESIUM 2022-03-25 03:38:00 Fili, [facility] PHOSPHORUS 2022-03-25 03:38:00 Fili, [facility] XR CHEST 1 VIEW PORTABLE 2022-03-25 02:04:00 Namita [facility] / BEDSIDE [facility] POCT-GLUCOSE METER 2022-03-25 00:26:00 Ina [facility] POCT-GLUCOSE METER 2022-03-24 17:46:[address] [facility] SARS-COV2/RT-PCR ([facility] & 2022-03-24 13:02:00 Namita [facility] REF LABS) [facility] BASIC METABOLIC PANEL 2022-03-24 12:54:00 Fili, [facility] MAGNESIUM 2022-03-24 12:54:00 [facility] PH[facility]US 2022-03-24 12:54:00 Fili, [facility] POCT-GLUCOSE METER 2022-03-24 06:38:00 Aman Buckley [facility] BLOOD GAS, ARTERIAL 2022-03-24 03:53:00 Fili, [facility] CBC W/PLT COUNT & AUTO 2022-03-24 03:52:00 DomínguezBriannaTaviangoc Salgado [facility] CBC W/PLT COUNT & AUTO 2022-03-24 03:52:00 [facility] DIFFERENTIAL [facility] CALCIUM, IONIZED 2022-03-24 03:52:00 [facility] BASIC METABOLIC PANEL 2022-03-24 03:52:00 [facility] MAGNESIUM 2022-03-24 03:52:00 [facility] PHOSPHORUS 2022-03-24 03:52:00 [facility] RETICULOCYTE COUNT 2022-03-24 03:52:00 [facility] FERRITIN 2022-03-24 03:51:00 [facility] IRON, TIBC, % SAT. 2022-03-24 03:51:00 [facility] (WITHOUT FERRITIN) [facility] VITAMIN B12 2022-03-24 03:51:00 [facility] XR CHEST 1 VIEW PORTABLE 2022-03-24 01:53:00 [facility] / BEDSIDE [facility] POCT-GLUCOSE METER 2022-03-24 00:18:00 Ina Aman [facility] POCT-GLUCOSE METER 2022-03-23 17:55:00 Aman Buckley [facility] BASIC METABOLIC PANEL 2022-03-23 16:58:00 Fili [facility] MAGNESIUM 2022-03-23 16:58:00 [facility] PHOSPHORUS 2022-03-23 16:58:00 Fili [facility] POCT-GLUCOSE METER 2022-03-23 11:41:00 Aman Buckley [facility] XR CHEST 1 VIEW PORTABLE 2022-03-23 11:27:00 [email or web address] POCT-GLUCOSE METER 2022-03-23 06:59:00 Aman Buckley [facility] BLOOD GAS, ARTERIAL 2022-03-23 02:54:00 Fili [facility] CBC W/PLT COUNT & AUTO 2022-03-23 02:53:00 Tavia Domínguez [facility] CBC W/PLT COUNT & AUTO 2022-03-23 02:53:00 Namita [facility] DIFFERENTIAL [facility] CALCIUM, IONIZED 2022-03-23 02:53:00 [facility] BASIC METABOLIC PANEL 2022-03-23 02:53:00 Fili [facility] MAGNESIUM 2022-03-23 02:53:00 Fili [facility] PHOSPHORUS 2022-03-23 02:53:00 [facility] HEPATIC FUNCTION PANEL 2022-03-23 02:53:00 Namita [facility] XR CHEST 1 VIEW PORTABLE 2022-03-23 01:50:00 Namita [facility] / BEDSIDE [facility] POCT-GLUCOSE METER 2022-03-23 00:16:00 Aman Buckley [facility] BLOOD CULTURE 2022-03-22 20:19:00 Clemencia Fournier [facility] URINE CULTURE 2022-03-22 20:19:00 Clemencia Fournier [facility] URINALYSIS W/ REFLEX 2022-03-22 20:19:00 Clemencia Fournier [facility] URINE CULTURE Center SPUTUM CULTURE + GRAM 2022-03-22 20:18:00 Namita, [facility] POCT-GLUCOSE METER 2022-03-22 18:12:[address] [facility] LACTIC ACID, ARTERIAL 2022-03-22 17:47:00 [facility] BASIC METABOLIC PANEL 2022-03-22 17:18:00 Fili, [facility] MAGNESIUM 2022-03-22 17:18:00 [facility] PHOSPHORUS 2022-03-22 17:18:00 [facility] PROCALCITONIN 2022-03-22 17:18:00 [facility] POCT-GLUCOSE METER 2022-03-22 11:44:[address] [facility] CBC W/PLT COUNT & AUTO 2022-03-22 04:00:00 Tavia Domínguez [facility] CBC W/PLT COUNT & AUTO 2022-03-22 04:00:00 [facility] CALCIUM, IONIZED 2022-03-22 04:00:00 [facility] BLOOD GAS, ARTERIAL 2022-03-22 04:00:00 [facility] BASIC METABOLIC PANEL 2022-03-22 04:00:00 [facility] MAGNESIUM 2022-03-22 04:00:00 [facility] PHOSPHORUS 2022-03-22 04:00:00 [facility] XR CHEST 1 VIEW PORTABLE 2022-03-22 01:53:00 [facility] POCT-GLUCOSE METER 2022-03-22 00:10:[address] [facility] POCT-GLUCOSE METER 2022-03-21 17:58:[address] [facility] BASIC METABOLIC PANEL 2022-03-21 15:26:00 Fili, [facility] MAGNESIUM 2022-03-21 15:26:00 [facility] PHOSPHORUS 2022-03-21 15:26:00 [facility] POCT-GLUCOSE METER 2022-03-21 12:08:00 Aman Buckley [facility] LACTIC ACID, ARTERIAL 2022-03-21 08:53:00 Fili, [facility] CBC W/PLT COUNT & AUTO 2022-03-21 03:26:00 Tavia Domínguez [facility] CBC W/PLT COUNT & AUTO 2022-03-21 03:26:00 [facility] CALCIUM, IONIZED 2022-03-21 03:26:00 [facility] BASIC METABOLIC PANEL 2022-03-21 03:26:00 Fili, [facility] MAGNESIUM 2022-03-21 03:26:00 [facility] PHOSPHORUS 2022-03-21 03:26:00 [facility] BLOOD GAS, ARTERIAL 2022-03-21 03:26:00 [facility] HEPATIC FUNCTION PANEL 2022-03-21 03:26:00 Aman Buckley [facility] LIPASE 2022-03-21 03:26:00 Aman Buckley [facility] LACTIC ACID, ARTERIAL 2022-03-21 03:26:00 [facility]ST 1 VIEW PORTABLE 2022-03-21 01:43:[address] [facility] / BEDSIDE [facility] POCT-GLUCOSE METER 2022-03-20 23:41:00 Aman Buckley [facility] BLOOD GAS, ARTERIAL 2022-03-20 20:42:00 [facility] XR CHEST 1 VIEW PORTABLE 2022-03-20 20:39:00 [facility] BASIC METABOLIC PANEL 2022-03-20 20:25:00 Fili [facility] MAGNESIUM 2022-03-20 20:25:00 Fili [facility] PHOSPHORUS 2022-03-20 20:25:00 [facility] POCT-GLUCOSE METER 2022-03-20 16:24:00 Aman Buckley [facility] BASIC METABOLIC PANEL 2022-03-20 11:51:00 Fili [facility] MAGNESIUM 2022-03-20 11:51:00 Fili [facility] PHOSPHORUS 2022-03-20 11:51:00 [facility] POCT-GLUCOSE METER 2022-03-20 11:48:00 Aman Buckley [facility] BLOOD GAS, ARTERIAL 2022-03-20 03:13:00 [facility] Guillory [facility] CBC W/PLT COUNT & AUTO 2022-03-20 03:12:00 Tavia Domínguez [facility] CBC W/PLT COUNT & AUTO 2022-03-20 03:12:00 [facility] CALCIUM, IONIZED 2022-03-20 03:12:00 [facility] TSH/FREE T4 IF INDICATED 2022-03-20 03:12:00 [facility] BASIC METABOLIC PANEL 2022-03-20 03:12:00 [facility] MAGNESIUM 2022-03-20 03:12:00 [facility] PHOSPHORUS 2022-03-20 03:12:00 [facility] XR CHEST 1 VIEW PORTABLE 2022-03-20 01:15:[address] [facility] / BEDSIDE [facility] POCT-GLUCOSE METER 2022-03-20 00:01:00 Aman Buckley [facility] BASIC METABOLIC PANEL 2022-03-19 20:34:00 [facility] MAGNESIUM 2022-03-19 20:34:00 [facility] PHOSPHORUS 2022-03-19 20:34:00 [facility] POCT-GLUCOSE METER 2022-03-19 17:50:00 Aman Buckley [facility] BLOOD GAS, ARTERIAL 2022-03-19 17:47:00 Amy [facility]ill[facility] CYTOLOGY 2022-03-19 17:40:00 [facility] FUNGUS CULTURE + SMEAR 2022-03-19 17:40:00 [facility] MYCOPLASMA PNEUMONIAE 2022-03-19 17:40:00 [facility] DNA, QUALITATIVE, Center REAL-TIME PCR BODY FLUID CELL COUNT 2022-03-19 17:39:00 [facility] WITH DIFFERENTIAL Center SPIN/CONCENTRATION CHARGE 2022-03-19 17:37:00 [facility] BRONCHIAL CULTURE + GRAM 2022-03-19 17:37:00 [facility] Center AFB CULTURE + SMEAR 2022-03-19 17:37:00 [facility] (NON-SPUTUM) [place] LEGIONELLA CULTURE 2022-03-19 17:37:00 [facility] VIRUS CULTURE 2022-03-19 17:37:00 [facility] MISCELLANEOUS LAB ORDER 2022-03-19 17:37:00 [facility] CHLAMYDIA PNEUMONIAE PCR 2022-03-19 17:31:00 Aman Buckley ra [facility] BASIC METABOLIC PANEL 2022-03-19 13:25:00 [facility] MAGNESIUM 2022-03-19 13:25:00 [facility] PHOSPHORUS 2022-03-19 13:25:00 [facility] POCT-GLUCOSE METER 2022-03-19 12:00:00 Aman Buckley [facility] XR CHEST 1 VIEW PORTABLE 2022-03-19 05:40:[address] [facility] / BEDSIDE [facility] POCT-GLUCOSE METER 2022-03-19 05:39:00 Ina Aman [facility] CBC W/PLT COUNT & AUTO 2022-03-19 02:19:00 DomínguezTavia [facility] VANCOMYCIN LEVEL, TROUGH 2022-03-19 02:19:00 OtikerGenoveva [facility] CBC W/PLT COUNT & AUTO 2022-03-19 02:19:[address] [facility] DIFFERENTIAL [facility] PHOSPHORUS 2022-03-19 02:19:00 Fili [facility] CALCIUM, IONIZED 2022-03-19 02:19:00 [facility] BLOOD GAS, ARTERIAL 2022-03-19 02:19:00 Kahlil, [facility] BASIC METABOLIC PANEL 2022-03-19 02:19:00 Kahlil, [facility] MAGNESIUM 2022-03-19 02:19:00 Kahlil, [facility] POCT-GLUCOSE METER 2022-03-19 02:12:00 Ina Aman [facility] CT ABDOMEN/PELVIS WITH IV 2022-03-19 00:52:00 Clemencia Fournier [facility] POCT-GLUCOSE METER 2022-03-18 18:48:00 Aman Buckley [facility] US ABDOMEN LIMITED 2022-03-18 16:40:00 Clemencia Fournier [facility] BLOOD GAS, ARTERIAL 2022-03-18 16:29:00 Kahlil, [facility] BASIC METABOLIC PANEL 2022-03-18 16:29:00 Kahlil [facility] MAGNESIUM 2022-03-18 16:29:00 Kahlil, [facility] POCT-GLUCOSE METER 2022-03-18 12:22:00 Aman Buckley [facility] EEG AWAKE AND DROWSY 2022-03-18 09:58:00 Clemencia Fournier [facility] SPUTUM CULTURE + GRAM 2022-03-18 05:41:00 AronCarmen duarte [facility] BLOOD CULTURE 2022-03-18 05:21:00 Aron [facility] XR CHEST 1 VIEW PORTABLE 2022-03-18 03:00:00 [facility] CBC W/PLT COUNT & AUTO 2022-03-18 02:52:00 Tavia Domínguez [facility] CBC W/PLT COUNT & AUTO 2022-03-18 02:52:00 Namita [facility] DIFFERENTIAL [facility] PHOSPHORUS 2022-03-18 02:52:00 Fili [facility] CALCIUM, IONIZED 2022-03-18 02:52:00 [facility] BLOOD GAS, ARTERIAL 2022-03-18 02:52[facility]00 [facility]OL[facility]EL 2022-03-18 02:52:00 Kahlil, [facility] MAGNESIUM 2022-03-18 02:52[facility] [place] HEPATIC FUNCTION PANEL 2022-03-18 02:52:00 Clemencia Fournier [facility] POCT-GLUCOSE METER 2022-03-17 18:44:00 Aman Buckley Vivi [facility] BASIC METABOLIC PANEL 2022-03-17 17:38:00 Kahlil, [facility] MAGNESIUM 2022-03-17 17:38:00 Kahlil, [facility] BLOOD GAS, ARTERIAL 2022-03-17 17:37:00 [facility] ([facility] & 2022-03-17 14:08:00 Namita [facility] REF LABS) [facility] VANCOMYCIN LEVEL, TROUGH 2022-03-17 14:08:00 Jeet Rice [facility] POCT-GLUCOSE METER 2022-03-17 11:18:00 Aman Buckley [facility] XR CHEST 1 VIEW PORTABLE 2022-03-17 02:41:00 Namita, Les [facility] / BEDSIDE [facility] CBC W/PLT COUNT & AUTO 2022-03-17 02:35:00 Tavia Domínguez [facility] DIFFERENTIAL [facility] CBC W/PLT COUNT & AUTO 2022-03-17 02:35:00 [facility] PHOSPHORUS 2022-03-17 02:35:00 Fili [facility] CALCIUM, IONIZED 2022-03-17 02:35:00 Fili, [facility] BLOOD GAS, ARTERIAL 2022-03-17 02:35:00 Kahlil, [facility] BASIC METABOLIC PANEL 2022-03-17 02:35:00 Kahlil, [facility] MAGNESIUM 2022-03-17 02:35:00 Kahlil, [facility] LIPASE 2022-03-17 02:35:00 Opal Nevarez [facility] POCT-GLUCOSE METER 2022-03-16 18:29:00 Zhane Cruz [facility] XR CHEST 1 VIEW PORTABLE 2022-03-16 16:59:00 Kahlil, [facility] BLOOD GAS, ARTERIAL 2022-03-16 16:19:00 Kahlil, [facility] BASIC METABOLIC PANEL 2022-03-16 16:19:00 Kahlil, [facility] MAGNESIUM 2022-03-16 16:19:00 Kahlil, [facility] VENOUS DOPPLER ARMS 2022-03-16 16:10:00 Keily Lott [facility] POCT-GLUCOSE METER 2022-03-16 11:24:00 Naty Cruzina [facility] PROCALCITONIN 2022-03-16 10:01:00 Kahlil [facility] VENOUS DOPPLER LEGS 2022-03-16 08:30:00 Kamran Wilson [facility] POCT-GLUCOSE METER 2022-03-16 06:19:00 Anthony Zhane [facility] BLOOD GAS, ARTERIAL 2022-03-16 03:21:00 Kahlil [facility] CBC W/PLT COUNT & AUTO 2022-03-16 03:20:00 DomínguezTavia Bayron [facility] CBC W/PLT COUNT & AUTO 2022-03-16 03:20:[address] [facility] DIFFERENTIAL [facility] PHOSPHORUS 2022-03-16 03:20:00 [facility] CALCIUM, IONIZED 2022-03-16 03:20:00 [facility]OL[facility] PANEL 2022-03-16 03:20:00 Kahlil, [facility] MAGNESIUM 2022-03-16 03:20:00 Kahlil [facility] HEPATIC FUNCTION PANEL 2022-03-16 03:20:00 Anthony Zhane [facility] URINALYSIS WITHOUT 2022-03-16 02:26:00 [facility] BLOOD CULTURE 2022-03-16 02:11:00 Kamran Wilson [facility] BLOOD CULTURE 2022-03-16 02:05:00 [facility] SPUTUM CULTURE + GRAM 2022-03-16 01:36:00 [facility] XR CHEST 1 VIEW PORTABLE 2022-03-16 01:05:[address] [facility] / BEDSIDE [facility] POCT-GLUCOSE METER 2022-03-15 23:57:00 Zhane Cruz [facility] POCT-GLUCOSE METER 2022-03-15 17:50:00 [place], [facility] BLOOD GAS, ARTERIAL 2022-03-15 17:13:00 Kahlil [facility] BASIC METABOLIC PANEL 2022-03-15 17:13:00 Kahlil [facility] MAGNESIUM 2022-03-15 17:13:00 Kahlil, [facility] BLOOD GAS, ARTERIAL 2022-03-15 12:04:00 Kahlil [facility] POCT-GLUCOSE METER 2022-03-15 11:05:00 [facility] POCT-GLUCOSE METER 2022-03-15 05:57:00 [facility] CBC W/PLT COUNT & AUTO 2022-03-15 02:35:00 Sang [facility] CBC W/PLT COUNT & AUTO 2022-03-15 02:35:[address] [facility] DIFFERENTIAL [facility] BASIC METABOLIC PANEL 2022-03-15 02:35:00 Sang Tavia [facility] MAGNESIUM 2022-03-15 02:35:00 Sang [facility] PHOSPHORUS 2022-03-15 02:35:00 Fili [facility] CALCIUM, IONIZED 2022-03-15 02:35:00 [facility] BLOOD GAS, ARTERIAL 2022-03-15 02:35:00 Kahlil [facility] POCT-GLUCOSE METER 2022-03-15 00:52:00 [facility] XR CHEST 1 VIEW PORTABLE 2022-03-15 00:27:[address] [facility] / BEDSIDE [facility] BASIC METABOLIC PANEL 2022-03-14 20:57:00 Emelia [facility] MAGNESIUM 2022-03-14 20:57:00 Kapoor [facility] BLOOD GAS, ARTERIAL 2022-03-14 17:05:00 Kahlil Amy [facility] POCT-GLUCOSE METER 2022-03-14 17:03:00 [facility] SPUTUM CULTURE + GRAM 2022-03-14 14:15:00 [facility] POCT-GLUCOSE METER 2022-03-14 12:00:00 [facility] BLOOD GAS, ARTERIAL 2022-03-14 09:32:00 [facility] POCT-GLUCOSE METER 2022-03-14 06:36:00 [facility] BLOOD GAS, ARTERIAL 2022-03-14 06:35:00 Cam Rodas [facility] CBC W/PLT COUNT & AUTO 2022-03-14 01:34:00 Sang [facility] CBC W/PLT COUNT & AUTO 2022-03-14 01:34:[address] [facility] DIFFERENTIAL [facility] BASIC METABOLIC PANEL 2022-03-14 01:34:00 Tavia Domínguez [facility] MAGNESIUM 2022-03-14 01:34:00 Sang [facility] PHOSPHORUS 2022-03-14 01:34:00 Fili [facility] BLOOD GAS, ARTERIAL 2022-03-14 01:34:00 Fili [facility] CALCIUM, IONIZED 2022-03-14 01:34:00 Fili [facility] XR CHEST 1 VIEW PORTABLE 2022-03-14 00:38:[address] [facility] / BEDSIDE [facility] POCT-GLUCOSE METER 2022-03-13 23:37:00 [facility] POCT-GLUCOSE METER 2022-03-13 17:48:00 [facility] BLOOD GAS, ARTERIAL 2022-03-13 11:50:00 Fili [facility] POCT-GLUCOSE METER 2022-03-13 11:47:00 Anthony [facility] POCT-GLUCOSE METER 2022-03-13 06:03:00 [facility] LACTIC ACID, ARTERIAL 2022-03-13 03:25:00 Cam Rodas [facility] BASIC METABOLIC PANEL 2022-03-13 02:16:00 Tavia Domínguez [facility] MAGNESIUM 2022-03-13 02:16:00 Sang [facility] PHOSPHORUS 2022-03-13 02:16:00 Fili [facility] CBC W/PLT COUNT & AUTO 2022-03-13 02:15:00 Sang [facility] CBC W/PLT COUNT & AUTO 2022-03-13 02:15:00 Namita [facility] DIFFERENTIAL [facility] BLOOD GAS, ARTERIAL 2022-03-13 02:15:00 Fili [facility] CALCIUM, IONIZED 2022-03-13 02:15:00 Fili, [facility] XR CHEST 1 VIEW PORTABLE 2022-03-13 00:28:00 Namita [facility] / BEDSIDE [facility] POCT-GLUCOSE METER 2022-03-12 23:39:00 Elsy [facility] BLOOD GAS, ARTERIAL 2022-03-12 17:30:00 Clemencia Fournier [facility] POCT-GLUCOSE METER 2022-03-12 17:28:00 Scjocelyn [facility] XR CHEST 1 VIEW PORTABLE 2022-03-12 13:27:00 Fili, [facility] / BEDSIDE Center POTASSIUM 2022-03-12 12:17:00 Fili [facility] MAGNESIUM 2022-03-12 12:17:00 Fili [facility] PHOSPHORUS 2022-03-12 12:17:00 Fili [facility] CALCIUM, IONIZED 2022-03-12 12:17:00 [facility] BLOOD GAS, ARTERIAL 2022-03-12 11:48:00 Fili [facility] POCT-GLUCOSE METER 2022-03-12 11:11:00 Anthony Zhane [facility] STREP PNEUMONIAE ANTIGEN 2022-03-12 08:50:00 [facility] LEGIONELLA ANTIGEN, URINE 2022-03-12 08:49:00 [facility] BRONCHIAL CULTURE + GRAM 2022-03-12 07:16:00 [facility]ilyn [facility] POCT-GLUCOSE METER 2022-03-12 06:24:00 [facility] center[facility] BLOOD GAS, ARTERIAL 2022-03-12 04:53:00 Sparkle Claudio [facility] CBC W/PLT COUNT & AUTO 2022-03-12 04:51:00 Tavia Domínguez [facility] DIFFERENTIAL [facility] CBC W/PLT COUNT & AUTO 2022-03-12 04:51:[address] [facility] DIFFERENTIAL [facility] BASIC METABOLIC PANEL 2022-03-12 04:51:00 Tavia Domínguez Salgado [facility] MAGNESIUM 2022-03-12 04:51:00 Tavia Domínguez Salgado [facility] PHOSPHORUS 2022-03-12 04:51:00 RumbaoaCam [facility] HEPATIC FUNCTION PANEL 2022-03-12 04:51:00 [facility] POCT-GLUCOSE METER 2022-03-12 01:20:00 Sil[facility]orthcre[facility] medical centerlora [facility] XR CHEST 1 VIEW PORTABLE 2022-03-12 01:00:[address] [facility] / BEDSIDE [facility] POCT-GLUCOSE METER 2022-03-11 17:24:00 Shin Cochran [facility] CBC W/PLT COUNT & AUTO 2022-03-11 17:14:00 Clemencia Fournier [facility] CBC W/PLT COUNT & AUTO 2022-03-11 17:14:00 Clemencia Fournier [facility] MR BRAIN WITHOUT IV 2022-03-11 17:09:00 [facility] AWAKE AND DROWSY 2022-03-11 13:22:00 Clemencia Fournier [facility] POCT-GLUCOSE METER 2022-03-11 11:12:00 Shin Cochran [facility] LIMITED 2D ECHOCARDIOGRAM 2022-03-11 11:04:10 Kala Lopez [facility] CBC W/PLT COUNT & AUTO 2022-03-11 05:08:00 Tavia Domínguez [facility] CBC W/PLT COUNT & AUTO 2022-03-11 05:08:00 Les Breaux [facility] BASIC METABOLIC PANEL 2022-03-11 05:08:00 Tavia Domínguez [facility] MAGNESIUM 2022-03-11 05:08:00 Sang [facility] BLOOD GAS, ARTERIAL 2022-03-11 05:08:00 Sparkle Claudio [facility] PHOSPHORUS 2022-03-11 05:08:00 Cam Rodas [facility] HEPATIC FUNCTION PANEL 2022-03-11 05:08:00 Shin oCchran [facility] POCT-GLUCOSE METER 2022-03-11 01:20:00 Shin Cochran [facility] CT BRAIN WITHOUT IV 2022-03-10 22:35:[address] [facility] CALCIUM, IONIZED 2022-03-10 20:36:00 Cam Rodas [facility] BLOOD GAS, ARTERIAL 2022-03-10 16:00:00 Shanon [facility] LACTIC ACID, ARTERIAL 2022-03-10 15:58:00 Shanon [facility] POCT-GLUCOSE METER 2022-03-10 15:58:00 Shin Cochran [facility] B-TYPE NATRIURETIC FACTOR 2022-03-10 12:18:00 [facility] BASIC METABOLIC PANEL 2022-03-10 12:18:00 Shanon [facility] VANCOMYCIN LEVEL, TROUGH 2022-03-10 11:23:00 Shalom Benson [facility] POCT-GLUCOSE METER 2022-03-10 11:22:00 Dimas [facility] ECG 12-LEAD 2022-03-10 11:12:20 Cam Rodas [facility] ECG 12-LEAD 2022-03-10 11:12:20 Unknown, Hl7 Doctor [facility] ECG 12-LEAD 2022-03-10 11:12:20 Unknown, Hl7 Doctor [facility] BLOOD GAS, ARTERIAL 2022-03-10 09:03:00 Shanon [facility] LACTIC ACID, ARTERIAL 2022-03-10 08:48:00 Shanon [facility] XR CHEST 1 VIEW PORTABLE 2022-03-10 08:14:00 [facility] ABDOMEN/KUB 1 VIEW 2022-03-10 08:12:00 Shanon [facility] BLOOD GAS, ARTERIAL 2022-03-10 06:35:00 Cam Rodas [facility] CBC W/PLT COUNT & AUTO 2022-03-10 02:47:00 Tavia Domínguez [facility] (CELLAVISION MANUAL DIFF) 2022-03-10 02:47:00 DomínguezTavia [facility] CBC W/PLT COUNT & AUTO 2022-03-10 02:47:[address] [facility] DIFFERENTIAL [facility] BASIC METABOLIC PANEL 2022-03-10 02:47:00 [facility]NESIUM 2022-03-10 02:47:00 Sang [facility] PHOSPHORUS 2022-03-10 02:47:00 [facility] BLOOD GAS, VENOUS 2022-03-10 02:47:00 [facility] LACTIC ACID, VENOUS 2022-03-10 02:47:00 [facility] XR CHEST 1 VIEW PORTABLE 2022-03-10 02:10:00 [facility] / BEDSIDE Center XR CHEST 1 VIEW PORTABLE 2022-03-10 01:11:00 [facility] Center POCT-GLUCOSE METER 2022-03-10 01:10:00 Sang [facility] CALCIUM, IONIZED 2022-03-10 01:00:00 [facility] BLOOD GAS, VENOUS 2022-03-10 01:00:00 [facility] HIGH SENSITIVITY TROPONIN 2022-03-09 20:06:00 Esau London [facility] Center B-TYPE NATRIURETIC FACTOR 2022-03-09 20:06:[address] [facility] (BNP) [facility] BLOOD GAS, VENOUS 2022-03-09 18:12:00 Sang [facility] XR CHEST 1 VIEW PORTABLE 2022-03-09 17:43:[address] David [address] [facility] / BEDSIDE Center URINALYSIS W/ REFLEX 2022-03-09 08:23:[address] [facility] URINE CULTURE [facility] SPUTUM CULTURE + GRAM 2022-03-09 08:09:00 Stephen[place], [facility] MRSA SCREEN 2022-03-09 07:48:00 Seema [facility] RESPIRATORY PANEL 2022-03-09 07:48:00 Tavia Domínguez [facility] LACTIC ACID, VENOUS 2022-03-09 07:48:00 Sang [facility] PROCALCITONIN 2022-03-09 07:48:00 Tavia Domínguez [facility] CBC W/PLT COUNT & AUTO 2022-03-09 04:02:00 Jonathan Stephenson [facility] (CELLAVISION MANUAL DIFF) 2022-03-09 04:02:00 Seema [facility] SARS-COV2/INFLUENZA/RSV 2022-03-09 04:02:[address] [facility] RT-PCR Center BASIC METABOLIC PANEL 2022-03-09 04:02:00 Seema [facility] PHOSPHORUS 2022-03-09 04:02:00 Seema [facility] MAGNESIUM 2022-03-09 04:02:00 Seema [facility] CBC W/PLT COUNT & AUTO 2022-03-09 04:02:00 Jonathan Stephenson [facility] LACTIC ACID, VENOUS 2022-03-09 01:43:00 Amelia Avilez [facility] BLOOD CULTURE 2022-03-08 21:58:00 Amelia Avilez [facility] LACTIC ACID, VENOUS 2022-03-08 21:58:00 Amelia Avilez [facility] PROTHROMBIN TIME/INR 2022-03-08 21:58:00 Amelia Avilez [facility] APTT 2022-03-08 21:58:00 Amelia Avilez [facility] CBC W/PLT COUNT & AUTO 2022-03-08 20:25:00 Amelia Avilez [facility] (CELLAVISION MANUAL DIFF) 2022-03-08 20:25:00 Amelia Avilez [facility] BASIC METABOLIC PANEL 2022-03-08 20:25:00 Amelia Avilez [facility] MAGNESIUM 2022-03-08 20:25:00 Amelia Avilez [facility] HIGH SENSITIVITY TROPONIN 2022-03-08 20:25:00 Amelia Avilez [facility] CBC W/PLT COUNT & AUTO 2022-03-08 20:25:00 Amelia Avilez [facility] Center ECG 12-LEAD 2022-03-08 20:16:57 Fatmata [facility] ECG 12-LEAD 2022-03-08 20:16:57 Unknown, Hl7 [facility] ECG 12-LEAD 2022-03-08 20:16:57 Unknown, Hl7 Doctor [facility] XR CHEST 1 VIEW PORTABLE 2022-03-08 20:05:00 Yuriybrooke Amelia [facility] / BEDSIDE Center EKG-SCANNED 2022-03-08 00:00:00 Provider, Default [facility] COMPREHENSIVE METABOLIC 2022-03-07 13:21:11 [facility] Medicine CLOBAZAM, SERUM 2022-03-07 13:21:11 [facility] Medicine CBC W/AUTO DIFF WITH 2022-03-07 13:21:11 [facility] PLATELETS Medicine AMMONIA 2022-03-07 13:21:11 [facility] Medicine URINALYSIS, COMPLETE 2022-03-07 13:21:11 [facility] W/REFLEX TO CULTURE Medicine MR BRAIN WITH & WITHOUT 2021-11-24 14:51:00 Melinda Talavera [facility] IV CONTRAST Center PROCEDURE, IN 2021-11-24 13:30:00 Virtual, Surgeon [facility] NON-OPERATING ROOM Center SETTING ECG 12-LEAD 2021-11-24 12:50:30 Chelsie Manriquez [facility] BASIC METABOLIC PANEL 2021-11-24 12:39:00 Chelsie Manriquez [facility] ASSIGNMENT OF BENEFITS 2021-11-22 23:17:22 Doctor Unassigned, No [facility] SARS-COV2/RT-PCR ([facility] & 2021-11-14 04:20:[address] [facility] REF LABS) Center CBC W/PLT COUNT & AUTO 2021-11-14 04:15:00 [facility] CBC W/PLT COUNT & AUTO 2021-11-14 04:15:[address] [facility] DIFFERENTIAL Center COMPREHENSIVE METABOLIC 2021-11-14 04:15:00 [facility] ECG 12-LEAD 2021-11-13 10:17:28 Giovana Hong [facility] OTHER SUPPLY 2021-08-07 16:45:17 [facility] EXTERNAL PROVIDER RECORDS 2021-05-18 06:01:00 Doctor Unassigned, No [facility] EXTERNAL PROVIDER RECORDS 2021-02-07 05:01:00 Doctor Unassigned, No [facility] [place] MODIFIED BARIUM 2020-09-14 19:52:07 Requisition, Paper [facility] URINALYSIS 2020-06-19 03:52:[address] [facility] LACTIC ACID WHOLE BLOOD 2020-06-19 02:48:00 Tammy Morris [facility] LIPASE 2020-06-19 02:47:[address] [facility] MAGNESIUM 2020-06-19 02:47:[address] [facility] COMP. METABOLIC PANEL 2020-06-19 02:47:00 Tammy Morris [facility] ([id number]) [facility] PHENYTOIN 2020-06-19 02:47:[address] [facility] CBC WITH DIFF 2020-06-19 02:47:[address] [facility] CT ABDOMEN PELVIS W 2020-06-09 19:10:45 Sander Piper [facility] CONTRAST Medical Branch URINALYSIS 2020-06-09 18:42:00 Piper, [facility] o [facility] ASSIGNMENT OF BENEFITS 2020-06-09 18:06:21 Doctor Unassigned, No [facility] Name [facility] CONSENT/REFUSAL FOR 2020-06-09 18:01:13 Doctor Unassigned, No [facility] DIAGNOSIS AND TREATMENT [facility] NOTICE OF PRIVACY 2020-06-09 18:00:53 [facility] Name [facility] BASIC METABOLIC PANEL 2020-06-09 17:49:[address] [facility] (NA, K, CL, CO2, GLUCOSE, Medica l Branch BUN, CREATININE, CA) CBC WITH DIFF 2020-06-09 17:49:00 [facility] DRAIN MAO LUNGS ESTUARDO/ART 2020-05-25 00:00:00 [facility] Medical OP ENDO DX Center INSRT INFUS DEVC SUP VENA 2020-05-13 00:00:00 [facility] CAVA PERQ Center ULTRASONOGRAPHY SUP VENA 2020-05-13 00:00:00 [facility] CAVA GUID Center INSERTION FEEDING DEVC 2020-05-13 00:00:00 [facility] Medical STOMACH PERQ Center INSRT ET AW TRACHEA 2020-05-12 00:00:00 [facility] ESTUARDO/ART OPENING Center RESPIRATORY VENTILATION > 2020-05-12 00:00:00 [facility] 96 CON HR Center INTR TOCILIZUMAB PERIPH 2020-05-11 00:00:00 [facility] Medical VN PERC NT5 Center INTR REMDESIVIR PERIPH VN 2020-05-07 00:00:00 O[facility] Medical PERC NT5 Center INT BARICITINIB 2020-05-07 00:00:00 [facility] Medi michele MOUTH/PHRNX EXT NT6 Center Plan of Care Planned Activity Planned Date Details Comments Source Future Scheduled 2023-04-[address] [facility] Test 00:00:00 [facility] Scre[facility] (12+) [code = Tobacco Cessation Counseling and Screening (12+)] Future Scheduled 2023-04-[address] [facility] Test 00:00:00 [facility] Scre[facility] (12+) [code = Tobacco Cessation Counseling and Screening (12+)] Future Scheduled 2022-06-06 COVID-19 Vaccine (#1) [employer] Test 07:58:51 [code = COVID-19 of Medicine Vaccine (#1)] Future Scheduled 2022-06-06 Pneumococcal Combined [employer] Test 07:58:51 (1 - PCV) [code = of Medicin e Pneumococcal Combined (1 - PCV)] Future Scheduled 2022-06-06 TETANUS SHOT (ADULT) [place] [employer] Test 07:58:51 [code = TETANUS SHOT of Medi cine (ADULT)] Future Scheduled 2022-06-06 Human immunodeficiency [employer] Test 07:58:51 virus screening of Medicine (procedure) [code = 491745545] Future Scheduled 2022-06-06 Hepatitis C screening [employer] Test 07:58:51 (procedure) [code = of Medic ine 255971641] Future Scheduled 2022-06-06 FLU VACCINE > 6 MONTHS [employer] [facility] 07:58:51 [code = FLU VACCINE > 6 of M edicine MONTHS] Future Scheduled 2022-04-11 COVID-19 Vaccine (#1) [employer] [facility] 08:33:44 [code = COVID-19 of Medicine Vaccine (#1)] Future Scheduled 2022-04-11 TETANUS SHOT (ADULT) [place] [employer] Test 08:33:44 [code = TETANUS SHOT of Medi cine (ADULT)] Future Scheduled 2022-04-11 Hepatitis C screening [employer] [facility] 08:33:44 (procedure) [code = of Medic ine 125197371] Future Scheduled 2022-04-11 [facility] 08:33:44 virus screening of Medicine (procedure) [code = 957373303] Future Scheduled 2022-04-11 FLU VACCINE > 6 MONTHS [employer] [facility] 08:33:44 [code = FLU VACCINE > 6 of M edicine MONTHS] Future Scheduled 2022-04-10 SUCTION MACHINE [code = Ordered: [facility] Test 11:17:02 NOCPT] 04/10/2022 of Medicine Future Scheduled 2022-04-10 XR CHEST PA AND LATERAL 1 Occurrences [facility] Test 11:12:51 [code = 51046-2] starting of Medicine 04/10/2022 until 04/10/2023 Future Scheduled 2022-04-10 OTHER SUPPLY [code = Ordered: [place] [employer] [facility] 11:11:53 NOCPT] 04/10/2022 of Medicine Future Scheduled 2022-04-10 COVID-19 Vaccine (#1) [employer] [facility] 10:57:32 [code = COVID-19 of Medicine Vaccine (#1)] Future Scheduled 2022-04-10 TETANUS SHOT (ADULT) [place] [employer] Test 10:57:32 [code = TETANUS SHOT of Medi cine (ADULT)] Future Scheduled 2022-04-10 Hepatitis C screening [employer] [facility] [employer] [facility] 10:57:32 (procedure) [code = of Medic ine 004753541] Future Scheduled 2022-04-10 [facility] 10:57:32 virus screening of Medicine (procedure) [code = 379346920] Future Scheduled 2022-04-10 FLU VACCINE > 6 MONTH[facility] 10:57:32 [code = FLU VACCINE > 6 of M edicine MONTHS] Future Scheduled 2022-04-[address] [facility] Test 00:00:00 (12+) [code = Medical Center DEPRESSION SCREENING (12+)] Future Scheduled 2022-04-[address] [facility] Test 00:00:00 (12+) [code = Medical Center DEPRESSION SCREENING (12+)] Future Scheduled 2021-12-07 INFLUENZA VACCINE (#1) [facility] 00:00[facility]00 [code = INFLUENZA Medical Ce nter VACCINE (#1)] Future Scheduled 2021-12-07 INFLUENZA VACCINE (#1) [facility] 00:00:00 [code = INFLUENZA Medical Ce nter VACCINE (#1)] Future Scheduled 2021-08-01 EMU ADMISSION [code = Ordered: [facility] 14:31:44 NOCPT] 08/01/2021 of Medicine Future Scheduled 2021-08-01 MRI BRAIN W WO CONTRAST 1 Occurrences [facility] [employer] Test 14:31:44 [code = 07548-9] starting of Medicine 08/01/2021 until 08/01/2022 Future Scheduled 2021-08-01 COMPREHENSIVE METABOLIC Ordered: [facility] Test 14:29:10 PANEL [code = 29416-9] 08/01/2021 of Me dicine Future Scheduled 2021-08-01 CBC W/AUTO DIFF WITH Ordered: [facility] Test 14:29:10 PLATELETS [code = 08/01/2021 of Medicin e 20363-3] Future Scheduled 2021-08-01 LEVETIRACETAM [code = Ordered: [facility] Test 14:29:10 06727] 08/01/2021 of Medicine Future Scheduled 2021-08-01 LACOSAMIDE, Ordered: [facility] ege Test 14:29:10 SERUM/PLASMA [code = 08/01/2021 of Medi cine NOCPT] Future Scheduled 2021-08-01 VITAMIN D, 25-HYDROXY, [facility] 14:29:10 LC/MS/MS [code = 08/01/2021 of Medicine 1988-] Future Scheduled 2021-08-01 COVID-19 Vaccine (1) [facility] Test 13:43:08 [code = COVID-19 of Medicine Vaccine (1)] Future Scheduled 2021-08-01 TETANUS SHOT (ADULT) [facility] Test 13:43:08 [code = TETANUS SHOT of Medi cine (ADULT)] Future Scheduled 2021-08-01 Hepatitis C screening [facility] Test 13:43:08 (procedure) [code = of Medic ine 984884106] Future Scheduled 2021-08-01 Human immunodeficiency [facility] Test 13:43:08 virus screening of Medicine (procedure) [code = 330835734] Future Scheduled 2021-08-01 FLU VACCINE > 6 MONTHS [facility] Test 13:43:08 [code = FLU VACCINE > 6 of M edicine MONTHS] Future Scheduled 2021-04-12 COVID-19 Vaccine (1) [facility] Test 08:09:11 [code = COVID-19 of Medicine Vaccine (1)] Future Scheduled 2021-04-12 TETANUS SHOT (ADULT) [facility] Test 08:09:11 [code = TETANUS SHOT of Medi cine (ADULT)] Future Scheduled 2021-04-12 Hepatitis C screening Ba or [place] Test 08:09:11 (procedure) [code = of Medic ine 985677500] Future Scheduled 2021-04-12 [facility] 08:09:11 virus screening of Medicine (procedure) [code = 696698585] Future Scheduled 2019-10-16 Lipid panel (procedure) [facility] Test 00:00:00 [code = 98868065] Medical Ce nter Future Scheduled 2019-10-16 Lipid panel (procedure) [facility] Test 00:00:00 [code = 63495523] Medical Ce nter Future Scheduled 2003-10-16 DTAP/TDAP/TD VACCINES [facility] Test 00:00:00 (1 - Tdap) [code = Medical C enter DTAP/TDAP/TD VACCINES (1 - Tdap)] Future Scheduled 2003-10-16 DTAP/TDAP/TD VACCINES [facility] Test 00:00:00 (1 - Tdap) [code = Medical C enter DTAP/TDAP/TD VACCINES (1 - Tdap)] Future Scheduled 2002 HEPATITIS C [facility]CRE[facility]ING [facility] Test 00:00:00 [code = HEPATITIS C [facility] Center SCREENING] Future Scheduled 2002 HEPATITIS C [facility] Test 00:00:00 [code = HEPATITIS C Medical Center SCREENING] Future Scheduled [address] [facility] Test 00:00:00 0-64 YRS (1 - PCV) Medical C enter [code = PNEUMOCOCCAL VACCINE 0-64 YRS (1 - PCV)] Future Scheduled [address] [facility] Test 00:00:00 0-64 YRS (1 - PCV) Medical C enter [code = PNEUMOCOCCAL VACCINE 0-64 YRS (1 - PCV)] Future Scheduled 1985-04-17 COVID-19 VACCINE (#1) [facility] Test 00:00:00 [code = COVID-[address] VACCINE (#1)] Future Scheduled 1985-04-17 COVID-19 VACCINE (#1) [facility] Test 00:00:00 [code = COVID-[address] VACCINE (#1)] Encounters Start End Encounter Admission Attending Care Care Encounter Source Date/Time Date/Time Type Type Clinicians Facility Department ID 2021-02-05 Emergency [facility] [id number] Univers 05:49:09 [facility] 2021-02-05 Emergency [facility] [id number] Univers 03:11:43 [facility] 2022-06-22 2022-06-22 Outpatient BRENDA Strange [facility] [id number] [facility] 07:01:00 07:01:00 Nathaniel Kebede [facility] 2022-06-20 2022-06-20 Outpatient BRYNN CHRISTIAN [facility] [id number] [facility] 08:47:17 09:13:23 GRANT melo of Medicin e 2022-06-10 2022-06-10 Outpatient DIONY NYDIA NYDIA [id number] Nydia 00:00:00 00:00:00 YURI redding 2022-06-04 2022-06-04 Telephone JOSE LUIS Wade 1.2.840.114 [id number] [facility] 00:00:00 00:00:00 Danni SPECIALTY 350.1.13.[address] [facility] [place] [phone] [facility] [address] 2022-06-02 2022-06-02 Orders Doctor ROSALES 1.2.840.114 [id number] Univers 00:00:00 00:00:00 Only Unassigned, KAITLIN 350.1.13.10 ity of Angie [facility] 4.2.7.2.686 Marc as [phone] [facility] [address] 2022-05-28 2022-05-29 Office Maame López [facility] 1.2.840.114 [id number] [facility] 11:00:00 07:59:09 Visit Sheila AMBULATOR 350.1.13.21 College Y 0.2.7.2.686 of [phone] [facility] 330 e 2022-05-28 2022-05-28 Outpatient ZANA [facility] SLE [id number] [facility] 09:54:44 23:59:00 KEYONA 2022-05-28 2022-05-28 [facility] [id number] 09:54:44 23:59:00 Encounter Keyona Chavira [facility] 2022-05-28 2022-05-28 [facility] [id number] 09:54:44 23:59:00 Encounter Keyona Chavira [facility] 2022-05-21 2022-05-21 Orders Maame López [facility] [id number] 00:00:00 00:00:00 Only [facility] 2022-05-21 2022-05-21 Orders Maame López [facility] [id number] 00:00:00 00:00:00 Only [facility] 2022-04-25 2022-05-02 [facility] [id number] 01:07:00 18:12:00 Encounter Gabino [facility]quin [facility] 2022-04-25 2022-05-02 Inpatient [facility] Internal [id number] [facility]SL 01:07:00 18:12:00 [facility] 2022-04-25 2022-05-[address] [facility] [id number] 01:07:00 18:12:00 Encounter Gabino Jarquin [facility] 2022-04-28 2022-04-28 Surgery [facility] [id number] 13:30:00 14:00:00 [facility] 2022-04-28 2022-04-28 Surgery [facility] [id number] 13:30:00 14:00:00 [facility] 2022-04-28 2022-04-28 Anesthesia Maurice Vela [facility] [id number] 13:03:00 13:23:00 Event Bhavya [facility] 2022-04-28 2022-04-28 Anesthesia Maurice Vela [facility] [id number] 13:03:00 13:23:00 Event Bhavya [facility] 2022-04-25 2022-04-[address] [facility] [id number] [facility] 00:00:00 00:00:00 [facility] 2022-04-25 2022-04-[address] [facility] [id number] [facility] 00:00:00 00:00:00 [facility] 2022-04-10 2022-04-19 Inpatient ER JADA BLAND Emergency [id number] SLE 18:31:00 11:21:00 CHANDLER 2022-04-10 2022-04-19 [facility] [id number] 18:31:00 11:21:00 Encounter Yvonne Ramos [facility] 2022-04-10 2022-04-19 [facility] ER IreneAmelia mcgarry [facility] [id number] 18:31:00 11:21:[address] [facility] 2022-04-12 2022-04-12 Outpatient [facility] [id number] [facility] 00:00:00 23:59:00 Colleg e of Medicin e 2022-04-10 2022-04-10 Office TANK MCKEON 1.2.840.114 [id number] [facility] 10:43:14 15:34:16 Visit DIPABEN AMBULATOR 350.1.13.21 College Y 0.2.7.2.686 of [id number] [facility] juan 315 e 2022-04-10 2022-04-10 Office Maame López [facility] 1.2.840.114 [id number] [facility] 09:30:00 15:32:19 Visit Sheila AMBULATOR 350.1.13.21 College Y 0.2.7.2.686 of [id number] [facility] juan 330 e 2022-04-10 2022-04-10 Outpatient [facility] [id number] [facility] 11:25:19 11:25:19 Colleg e of Medicin e 2022-04-10 2022-04-10 Outpatient EL MAAME LÓPEZ [facility] [id number] [facility] 00:00:00 00:00:00 2022-04-10 2022-04-[address] [facility] [id number] [facility] 00:00:00 00:00:00 [facility] 2022-04-10 2022-04-[address] [facility] [id number] [facility] 00:00:00 00:00:00 [facility] 2022-03-08 2022-03-31 Inpatient ER JADA SPANN Emergency [id number] [facility] 20:31:00 17:57:00 KEYONA 2022-03-08 2022-03-31 [facility] [id number] 20:31:00 17:57:00 Encounter David Blackmon, [facility], [facility], Jerome Cochran, Shin Cruz, Zhane Buckley, Aman Lowe, Jonathan Zana, Keyona Jaelyn 2022-03-08 2022-03-31 [facility] Amelia Avilez [facility] [id number] 20:31:00 17:57:00 Encounter David Blackmon, [facility], [facility], Jerome Cochran, Shin Cruz, Zhane Buckley, Aman Lowe, Jonathan Nalam, Keyona Jaelyn 2022-03-08 2022-03-08 Outpatient [facility] [id number] [facility] 00:00:00 23:59:00 Colleg e of Medicin e 2022-03-08 2022-03-08 Outpatient MAAME LÓPEZ [facility] [id number] [facility] 15:56:14 16:30:27 Colleg e of Medicin e 2022-03-08 2022-03-08 Orders [facility] [id number] 00:00:00 00:00:00 Only [facility] 2022-03-08 2022-03-[address] [facility] [id number] [facility] 00:00:00 00:00:00 [facility] 2022-03-08 2022-03-08 Orders [facility] [id number] 00:00:00 00:00:00 Only [facility] 2022-03-08 2022-03-[address] [facility] [id number] [facility] 00:00:00 00:00:00 [facility] 2022-03-07 2022-03-07 Outpatient ILAN BRYNN [facility] [id number] [facility] 12:53:39 13:19:17 MELINDA Colleg e of Medicin e 2022-01-15 2022-01-15 Outpatient ILAN Leo [facility] [id number] [facility] 14:23:07 14:54:06 MELINDA Colleg e of Medicin e 2021-12-19 2021-12-19 Outpatient MAAME LÓPEZ [facility] [id number] [facility] 15:57:35 16:06:10 Colleg e of Medicin e 2021-11-27 2021-11-27 Outpatient MAAME LÓPEZ [facility] [id number] [facility] 13:23:33 14:12:37 Colleg e of Medicin e 2021-11-24 2021-11-24 Outpatient TALAVERA [facility] [id number] [facility] 12:56:05 23:59:00 MELINDA 2021-11-24 2021-11-24 [facility] [id number] 12:56:05 23:59:00 Encounter Melinda [facility] 2021-11-24 2021-11-24 [id number] 12:56:05 23:59:00 Encounter Melinda [facility] 2021-11-24 2021-11-24 Outpatient [facility] [id number] [facility] 11:16:00 23:59:00 Colleg e of Medicin e 2021-11-24 2021-11-24 Outpatient TALAVERA [facility] [id number] SLE 11:16:00 17:43:00 MELINDA 2021-11-24 2021-11-24 [facility] [id number] 11:16:00 17:43:00 Encounter Melinda [facility] 2021-11-24 2021-11-24 [facility] VIRGIL Talavera, [facility] [id number] 11:16:00 17:43:00 Encounter Melinda Louis Jass[facility] 2021-11-24 2021-11-24 Anesthesia Lionel Lorenz Christian [facility] [id number] 13:40:00 15:35:00 [facility] 2021-11-24 2021-11-24 Anesthesia Lionel Lroenz [facility] [id number] 13:40:00 15:35:00 Event Jean-Pierre [facility] 2021-11-24 2021-11-24 Surgery Virtual, [facility] [id number] 13:30:00 15:30:00 [facility] 2021-11-24 2021-11-24 Surgery Virtual, [facility] [id number] 13:30:00 15:30:00 [facility] 2021-11-24 2021-11-24 Outpatient [facility] [id number] [facility] 00:00:00 11:15:00 Hermes 2021-11-23 2021-11-23 Outpatient EL [facility] [id number] [facility] 09:44:32 23:59:00 2021-11-23 2021-11-23 [facility] [id number] 08:55:00 23:59:00 Encounter [facility] 2021-11-23 2021-11-23 [facility] [id number] 08:55:00 23:59:00 Encounter [facility] 2021-11-23 2021-11-[address] [facility] [id number] [facility] 00:00:00 00:00:00 [facility] 2021-11-23 2021-11-[address] [facility] [id number] [facility] 00:00:00 00:00:00 [facility] 2021-11-22 2021-11-22 Laboratory Only, Ang Db Test [facility] 1.2.8 40.114 [id number] Univers 18:30:00 18:45:00 Only LorenzaleoJadiel [facility] 350.1.13.10 ity of [facility] 4.2.7.2.686 Marc as RALPH?BLEA [id number] [address] MEDICAL OFFICE [facility] 2021-11-22 2021-11-22 Outpatient [facility] [id number] Univers 18:30:00 18:30:00 [facility] 2021-11-22 2021-11-22 Orders Doctor BOBBY 1.2.840.114 [id number] [facility] 00:00:00 00:00:00 Only UnassignedKAITLIN 350.1.13.10 [facility] 4.2.7.2.686 Marc as [id number] [address] 2021-11-13 2021-11-17 Inpatient [facility] Neurophysio [id number] [facility] 08:41:00 13:30:00 [facility] 2021-11-13 2021-11-17 [facility] [id number] 08:41:00 13:30:00 Encounter [facility] 2021-11-13 2021-11-17 [facility] [id number] 08:41:00 13:30:00 Encounter [facility] 2021-11-13 2021-11-13 Outpatient [facility] [id number] [facility] 00:00:00 23:59:00 Crow carey of Medicin e 2021-11-08 2021-11-08 Laboratory Only, Ang Db Test [facility] 1.2.8 40.114 [id number] Univers 19:00:00 19:15:00 Only Chandler Holbrook [facility] 350.1.13.10 ity of [place] 4.2.7.2.686 Marc as RALPH?BLEA [id number] [address] OFFICE [facility] 2021-11-08 2021-11-08 Outpatient [facility] [id number] Univers 19:00:00 19:00:00 CHANDLER [facility] 2021-11-08 2021-11-08 Outpatient R [facility] [id number] Univers 16:45:00 16:45:00 ity of [facility] 2021-11-08 2021-11-[address] [facility] [id number] 00:00:00 00:00:00 Orders [facility] 2021-11-08 2021-11-[address] [facility] [id number] 00:00:00 00:00:00 Orders [facility] 2021-08-09 2021-08-09 [facility] [id number] 00:00:00 00:00:00 [facility] 2021-08-09 2021-08-09 [facility] [id number] 00:00:00 00:00:00 [facility] 2021-08-07 2021-08-07 Outpatient BRYNN PINO [facility] [id number] [facility] 15:53:06 16:29:26 BERTHA melo of Medicin e 2021-08-01 2021-08-01 Office BRYNN TALAVERA 1.2.840.114 [id number] [facility] 13:37:42 16:07:25 Visit MELINDA AMBULATOR 350.1.13.21 College Y 0.2.7.2.686 of [id number] Medi juan 800 e 2021-06-20 2021-06-20 Outpatient BRYNN BERNAL [facility] [id number] [facility] 13:18:39 13:40:51 MELYSSA roche of Medicin e 2021-05-18 2021-05-18 Orders Doctor ROSALES 1.2.840.114 [id number] Univers 00:00:00 00:00:00 Only Unassigned, KAITLIN 350.1.13.10 ity of Angie [facility] 4.2.7.2.686 Marc as [phone] [facility] [address] 2021-05-09 2021-05-09 Outpatient BRYNN PINO [facility] [id number] [facility] 15:57:01 16:43:28 BERTHA Colle ge of Medicin e 2021-04-10 2021-04-10 Office BRYNN Pino 1.2.840.114 [id number] [facility] 13:00:00 14:45:17 Visit Bertha AMBULATOR 350.1.13.21 [facility] 0.2.7.2.686 of [id number] [facility] 330 e 2021-03-07 2021-03-07 Telephone Doc [facility] 1.2.840.114 [id number] Univers 00:00:00 00:00:00 Dwight [facility] 350.1.13.10 ity of [place] 4.2.7.2.686 Marc as RALPH?BLEA [phone] Il dicpa HIRENEY [address] MEDICAL OFFICE BUILDING 2021-02-07 2021-02-07 Orders Doctor BOBBY 1.2.840.114 [id number] Univers 00:00:00 00:00:00 Only Unassigned, KAITLIN 350.1.13.10 ity of Angie [facility] 4.2.7.2.686 Marc as [phone] [facility] 00[address] 2021-01-12 2021-01-12 Telephone Doc [facility] 1.2.840.114 [id number] Univers 00:00:00 00:00:00 Dwight Dior 350.1.13.10 ity of [place] [phone] Il dical chiquita [address] 2020-09-14 2020-09-14 Hospital Radiology [facility] 1.2.840.114 [id number] Univers 12:23:26 23:59:00 Encounter Barby 350.1.13.10 ity of [place].2.[place] [phone] [facility] 8[address] 2020-09-14 2020-09-14 Ancillary Miriam Wilson [facility] 1.2.8 40.114 [id number] Univers 14:28:45 14:33:03 Visit Adelfo Wallace Cait Dior 350.1.13.10 ity of [place].2.[place] [phone] Il dical formerly [facility] 145 [facility] 2020-09-14 2020-09-14 Outpatient R RODRIGO, [facility] [id number] Univers 13:45:00 13:45:00 ADELFO ity [facility] 2020-09-14 2020-09-14 Outpatient R RADIOLOGY [facility] [id number] Univers 00:00:00 00:00:00 ity [facility] 2020-08-26 2020-08-26 Telephone Doc [facility] 1.2.840.114 [id number] Univers 00:00:00 00:00:00 Dwight Dior 350.1.13.10 ity [facility] 4.2.7.2.[place] [phone] [address] 2020-08-16 2020-08-16 Office Doc [facility] 1.2.840.114 [id number] Univers 15:35:42 17:21:31 Visit Dwight Dior 350.1.13.10 ity of [place].2.[place] [phone] [address] 2020-08-16 2020-08-16 Outpatient R DWIGHT GUTIERREZ [facility] [id number] Univers 15:40:00 15:40:00 DWIGHT GUTIERREZ itsaloni [facility] 2020-06-18 2020-06-19 Emergency Arturo [facility] 1.2.498.760 [id number] Univers 20:17:00 00:05:00 Tammy Dior 350.1.13.10 ity of [place].2.[place] [phone] [facility] [address] 2020-06-09 2020-06-09 Emergency [facility] 1.2.778.482 [id number] Univers 11:26:00 17:03:00 Sander Dior 350.1.13.10 i ty [facility] 4.2.7.2.[place] [phone] [facility] [address] 2020-05-07 2020-06-07 Inpatient E SHELBY, [facility] [id number] 15:13:00 21:19:00 [facility] 2020-05-01 2020-05-01 Urgent Provider, [facility] 1.2.840.114 [id number] Univers 15:31:30 15:51:30 Care [facility] 350.1.13.10 ity [facility] 4.2.7.2.686 Marc as Professio [phone] [facility] [address] 2020-05-01 2020-05-01 Outpatient Isa HALEY [facility] [id number] Univers 15:20:00 15:20:00 [facility] 2020-05-01 2020-05-01 Outpatient Isa HALEY [facility] [id number] Univers 13:00:00 13:00:00 [facility] 2020-04-30 2020-04-30 Nurse Mena Prado 1.2.840.114 [id number] Univers 00:00:00 00:00:00 Triage KAITLIN 350.1.13.10 it y of [facility] 4.2.7.2.686 Marc as [phone] [facility] [address] Results Test Description Test Time Test Comments Results Result Comments Source AFB culture + smear (non-sputum) 2022-05-30 10:40:57 Test Item Value Reference Range Interpretation Comme nts Result (test code = 6463-4) No acid-fast bacilli isolated in 42 day s AFB Smear (test code = 42135-3) No acid fast bacilli [facility]2022-05-30 10:40:57 Test Item Value Reference Range Interpretation Comments Result (test code = No acid-fast bacilli 6463-4) isolated in 42 days AFB Smear (test code = No acid fast bacilli 40938-6) [facility] + [facility] (NON-SPUTUM)2022-05-30 10:40:57 Test Item Value Reference Range Interpretation Comments CULTURE (BEAKER) (test No acid-fast bacilli code = 1095) isolated in 42 days AFB SMEAR (BEAKER) No acid fast bacilli (test code = 994) seen RAD, CHEST, 2 [id number] 09:58:00Follow-up after recent admission, bilateral pleural effusionRelease to patient->ImmediateWhich [facility] radi[facility] is preferred?->[employer] Company ID = [id number]; Insurance Company Name = [employer]; Insurance Company Phone Number = ; Policy Number = [id number] [facility] : 1985 Sex: MFINAL REPORT EXAM: RAD, CHEST, 2 VIEWSDATE: 05/28/2022 10:20 AM INDICATION: G80.9\\S\\Cerebral palsy, unspecified ; J69.0\\S\\Pneumonitis due to inhalation of food and vomitCOMPARISON: Chest x-ray, 04/30/2022 FINDINGS:Lines and tubes: None Heart size normal. There has been improvement of the bilateral lower lobe airspace opacities with minimal patchy density remaining at the lung bases. Trace right pleural effusion, improved since last exam. No pneumothorax. Upper abdomen unremarkable. Noacute bony abnormality. Thoracolumbar scoliosis again noted. IMPRESSION:Improvement of bilateral lower lobe multifocal pneumonia with residual bibasilar opacities, likely atelectasis. Diminished right pleural effusion, now trace. Signed: Belle Mackey Verified Date/Time: 05/29/2022 09:58:12 Reading Location: [facility] Reading Room [address] [place] [address] COMPREHENSIVE METABOLIC [id number] 09:40:13 Test Item Value Reference Range Interpretation Comments GLUCOSE (test code = 82 See_Comment [Autom ated message] 9855-7) The system [employer] generated this result transmitted ref erence range: 70 - 99 MG/DL. The reference r subhash was not used to interpret this result as normal/abnor mal. BLOOD UREA NITROGEN 20 See_Comment [Automa claudio message] (test code = 3091-6) The s tem which generated this result transmitted ref erence range: 6 - 20 M G/DL. The reference r subhash was not used to interpret this result as normal/abnor mal. CREATININE (test code = 0.53 See_Comment L [Au tomated message] 2160-0) The system [employer] generated this result transmitted ref erence range: 0.80 - 1 .40 MG/DL. The refe rence range was not u sed to interpret this result as normal/abnor mal. EGFR (test code = 132 See_Comment [Automate d message] 35367-6) The system [employer] generated this result transmitted ref erence range: >60 ML/MIN/1.73. Th e reference range was not used to int erpret this result as normal/abnormal . BUN/CREAT RATIO (test 38 See_Comment H [Auto mated message] code = 3097-3) The system [facility] generated this result transmitted ref erence range: 6 - 28 R ATIO. The reference r subhash was not used to interpret this result as normal/abnor mal. SODIUM (test code = 145 See_Comment [Automa claudio message] 5531-2) The system [employer] generated this result transmitted ref erence range: 133 - 14 6 MEQ/L. The refe rence range was not u sed to interpret this result as normal/abnor mal. POTASSIUM (test code = 4.2 See_Comment [Aut omated message] 1813-3) The system [employer] generated this result transmitted ref erence range: 3.5 - 5. 4 MEQ/L. The refe rence range was not u sed to interpret this result as normal/abnor mal. CHLORIDE (test code = 102 See_Comment [Auto mated message] 2074-0) The system [facility] generated this result transmitted ref erence range: 95 - 107 MEQ/L. The reference r subhash was not used to interpret this result as normal/abnor mal. CO2 (test code = 29 See_Comment [Automated message] 1962-8) The system [facility] generated this result transmitted ref erence range: 19 - 31 MEQ/L. The reference r subhash was not used to interpret this result as normal/abnor mal. CALCIUM (test code = 10.3 See_Comment [Autom ated message] 53000-2) The system [facility] generated this result transmitted ref erence range: 8.5 - 10 .5 MG/DL. The refe rence range was not u sed to interpret this result as normal/abnor mal. PROTEIN TOTAL (test 8.1 See_Comment [Automa claudio message] code = 7415-2) The system [facility] generated this result transmitted ref erence range: 6.1 - 8. 3 G/DL. The reference r subhash was not used to interpret this result as normal/abnor mal. ALBUMIN (test code = 4.3 See_Comment [Autom ated message] 45601-4) The system [facility] generated this result transmitted ref erence range: 3.5 - 5. 2 G/DL. The reference r subhash was not used to interpret this result as normal/abnor mal. GLOBULINS, SERUM, TOTAL 3.8 See_Comment H [Au tomated message] (test code = 42938-5) The sy stem which generated this result transmitted ref erence range: 1.9 - 3. 7 G/DL. The reference r subhash was not used to interpret this result as normal/abnor mal. A/G RATIO (test code = 1.1 See_Comment [Aut omated message] 7779-0) The system [facility] generated this result transmitted ref erence range: 1.0 - 2. 6 RATIO. The refe rence range was not u sed to interpret this result as normal/abnor mal. BILIRUBIN TOTAL (test 0.2 See_Comment [Auto mated message] code = 1975-2) The system ich generated this result transmitted ref erence range: <=1.2 MG /DL. The reference r subhash was not used to interpret this result as normal/abnor mal. ALKALINE PHOSPHATASE 161 U/L 40-117 H (test code = 6768-6) AST (SGOT) (test code = 51 U/L 9-50 H 1920-8) ALT (SGPT) (test code = 81 U/L 5-50 H Unl ess Otherwise 1744-2) Indicated, All Testing Performed At: [facility], [address] [place] [address] Laborator y Director: Nathaniel Andres M.D. CLIA Number [id number] Cap [place]. [id number] Lab Interpretation Abnormal (test code = 89795-7) [facility] W/AUTO DIFF WITH [id number] 09:25:20 Test Item Value Reference Range Interpretation Comments WHITE BLOOD CELL COUNT 4.3 See_Comment [Aut omated message] (test code = 64522-2) The sy stem which generated this result transmitted ref erence range: 3.5 - 11 .0 K/UL. The refer ence range was not u sed to interpret this result as normal/abnor mal. RED BLOOD CELL COUNT 4.65 See_Comment [Autom ated message] (test code = 37430-8) The sy stem which generated this result transmitted ref erence range: 4.50 - 6 .10 M/UL. The refer ence range was not u sed to interpret this result as normal/abnor mal. HEMOGLOBIN (test code = 12.7 See_Comment L [Au tomated message] 718-7) The system ic h generated this result transmitted ref erence range: 13.5 - 1 7.0 G/DL. The refer ence range was not u sed to interpret this result as normal/abnor mal. HEMATOCRIT (test code = 40.1 % 40.0-51.0 ) MEAN CORPUSCULAR VOLUME 86.2 fL 80.0-99.0 (test code = 81531-9) MEAN CORPUSCULAR 27.3 PG 25.0-33.0 HEMOGLOBIN (test code = 76528-1) MEAN CORPUSCULAR 31.7 See_Comment [Automated message] HEMOGLOBIN CONC (test The sy stem which code = 64711-3) generated th is result transmitted ref erence range: 31.0 - 3 6.0 G/DL. The refer ence range was not u sed to interpret this result as normal/abnor mal. RED CELL DISTRIBUTION 16.0 % 11.5-15.0 H WIDTH (test code = 42519-4) NEUTROPHILS % (test code 54.9 % = 40529-7) LYMPHOCYTES % (test code 33.9 % = 04010-4) MONOCYTES % (test code = 8.6 % 16511-3) EOSINOPHILS % (test code 1.9 % = 92729-3) BASOPHILS % (test code = 0.7 % 74822-3) IMMATURE GRANULOCYTES 0.0 % (test code = 50510-6) NUCLEATED RBC'S 0.00 See_Comment Unless Othe rwise MYELOPEROX STAIN (test Indic ated, All code = 44943-5) Testing Perf ormed At: [facility], [address] [place] [address] Laborator y Director: Nathaniel Andres M.D. CLIA Number [id number] Cap Accreditation [place] o. [id number] [Autom ated message] The sy stem which generated this result transmit claudio reference range : 0.00 - 0.11 K/UL. Th e reference range was not used to int erpret this result as normal/abnormal . PLATELET COUNT (test 283 See_Comment [Autom ated message] code = 04380-0) The system [facility] generated this result transmitted ref erence range: 130 - 40 0 K/UL. The refer ence range was not u sed to interpret this result as normal/abnor mal. NEUTROPHILS ABSOLUTE 2.35 See_Comment [Autom ated message] COUNT (test code = The syste m which 13814-3) generated this result transmitted ref erence range: 1.50 - 7 .50 K/UL. The refer ence range was not u sed to interpret this result as normal/abnor mal. LYMPHOCYTES ABSOLUTE 1.45 See_Comment [Autom ated message] COUNT (test code = The syste m which 74865-3) generated this result transmitted ref erence range: 1.00 - 4 .00 K/UL. The refer ence range was not u sed to interpret this result as normal/abnor mal. MONOCYTES ABSOLUTE COUNT 0.37 See_Comment [A utomated message] (test code = 33451-7) The sy stem which generated this result transmitted ref erence range: 0.20 - 1 .00 K/UL. The refer ence range was not u sed to interpret this result as normal/abnor mal. BASOPHILS ABSOLUTE COUNT 0.03 See_Comment [A utomated message] (test code = 71000-5) The sy stem which generated this result transmitted ref erence range: 0.00 - 0 .20 K/UL. The refer ence range was not u sed to interpret this result as normal/abnor mal. IMMATURE GRANS (ABS) 0.00 See_Comment [Autom ated message] (test code = 9987) The syste m which generated this result transmitted ref erence range: 0.00 - 0 .10 K/UL. The refer ence range was not u sed to interpret this result as normal/abnor mal. Lab Interpretation (test Abnormal code = 55502-0) [facility] [id number] 01:08:50 Test Item Value Reference Range Interpretation Comments Result (test code = [place] [address]) 28 days Fungus Smear (test No fungi seen code = 1406) [facility] [id number] 01:08:50 Test Item Value Reference Range Interpretation Comments Result (test code = No fungus isolated in 64-4) 28 days Fungus Smear (test No fungi seen code = 1406) [facility] [id number] 01:08:50 Test Item Value Reference Range Interpretation Comments CULTURE (BEAKER) (test No fungus isolated in code = 1095) 28 days FUNGUS SMEAR (BEAKER) No fungi seen (test code = 1406) POC-Glucose [id number] 16:31:24 Test Item Value Reference Range Interpretation Comments POC-Glucose Meter (test 135 mg/dL 70-110 H : TE STED AT [facility] code = 1538) [address] [place] [address]: Roll Icer/Techni carroll ID = [id number] for Kenia Burton Lab Interpretation (test Abnormal code = 34971-5) [facility] [id number] 16:31:24 Test Item Value Reference Range Interpretation Comments POC-Glucose Meter (test 135 mg/dL 70-110 H : TE STED AT [facility] code = 1538) [address] [facility], [facility] [address]: Roll Icer/Techni carroll ID = [id number] for Kenia Burton Lab Interpretation (test Abnormal code = 98759-6) [facility]-GLUCOSE [id number] 16:31:24 Test Item Value Reference Range Interpretation Comments POC-GLUCOSE METER 135 mg/dL 70-110 H : TESTED A T [facility] [address] (BEAKER) (test code [address] [facility], = 1538) [place] [address]: Roll Icer/Techni carroll ID = [id number] for Kenia Escalante POCT-GLUCOSE [id number] 11:38:52 Test Item Value Reference Range Interpretation Comments POC-GLUCOSE METER 114 mg/dL 70-110 H : TESTED A T [facility] [address] (BEAKER) (test code [address] [facility], = 1538) [place] [address] 478: Roll Icer/Techni carroll ID = [id number] for [employer] CULTURE + SMEAR (NON-SPUTUM)2022-05-02 09:42:02 Test Item Value Reference Range Interpretation Comments CULTURE (BEAKER) (test No acid-fast bacilli code = 1095) isolated in 42 days AFB SMEAR (BEAKER) No acid fast bacilli (test code = 994) seen [id number] 06:45:33 Test Item Value Reference Range Interpretation Comments MAGNESIUM (BEAKER) (test code = 1.9 mg/dL 1.5-3.0 627) Roll Icer ID - [id number] ID - [id number] ID - LBLN61Hczbjshr ID - [id number] BASIC METABOLIC [id number] 06:43:32 Test Item Value Reference Range Interpretation Comments SODIUM (BEAKER) 142 meq/L 135-148 (test code = 381) POTASSIUM 4.4 meq/L 3.6-5.5 (BEAKER) (test code = 379) CHLORIDE (BEAKER) 102 meq/L 98-106 (test code = 382) CO2 (BEAKER) 31 meq/L 20-29 H (test code = 355) BLOOD UREA 8 mg/dL 10-26 L NITROGEN (BEAKER) (test code = 354) CREATININE 0.57 mg/dL 0.50-1.20 (BEAKER) (test code = 358) GLUCOSE RANDOM 86 mg/dL 70-110 (BEAKER) (test code = 652) CALCIUM (BEAKER) 10.0 mg/dL 8.5-10.5 (test code = 697) EGFR (BEAKER) 127 Interpretatio n of eGFR (test code = mL/min/1.73 values Stage De scription 1092) sq m Result G1 Tyra l or high >=90 G2 Mildly decreased 60-89 G3a Mildl y to moderately 45-5 9 G3b Moderately to s everely 30-44 G4 Severl y decreased 15-29 G5 Kidney failure <15Reported eGF R is based on the CKD-EPI 2020 equation that d oes not use a race coefficientEsti mated GFR is not as accur ate as Creatinine Papi sandor in predicting glom erular filtration rate . Estimated GFR is not appl icable for dialysis patien ts Roll Icer ID - OUMW45Kjuimvbm ID - ILFK89Jscqcnkv ID - KCBU04Hpttqrgw ID - THDF86Xyjpxmfr ID - FBWY66Nwegytrz ID - TEPV64Zogwacze ID - JZFR37Zqwnqxhu ID - XNPH96Qmrgubss ID - [id number] 06:42:11 Test Item Value Reference Range Interpretation Comments PHOSPHORUS (BEAKER) (test code = 4.2 mg/dL 2.5-4.5 604) Roll Icer ID - [id number]-QPOHMFO [id number] 06:38:51 Test Item Value Reference Range Interpretation Comments POC-GLUCOSE METER 89 mg/dL 70-110 : TESTED A T [facility] [address] (BEAKER) (test code = [address], 1538) [facility] [address] 478: Roll Icer/Techni carroll ID = [id number] for Radha Cavazos CBC W/PLT COUNT & AUTO [id number] 06:01:42 Test Item Value Reference Range Interpretation Comments WHITE BLOOD CELL COUNT (BEAKER) 6.3 K/ L 4.0-10.0 (test code = 775) RED BLOOD CELL COUNT (BEAKER) 4.26 M/ L 4.20-5.80 (test code = 761) HEMOGLOBIN (BEAKER) (test code = 11.9 GM/DL 13.0-16.8 L 410) HEMATOCRIT (BEAKER) (test code = 37.6 % 36.0-50.0 411) MEAN CORPUSCULAR VOLUME (BEAKER) 88 fL 82-99 (test code = 753) MEAN CORPUSCULAR HEMOGLOBIN 27.9 pg 27.0-33.0 (BEAKER) (test code = 751) MEAN CORPUSCULAR HEMOGLOBIN CONC 31.6 GM/DL 32.0-36.0 L (BEAKER) (test code = 752) RED CELL DISTRIBUTION WIDTH 14.9 % 12.0-15.0 (BEAKER) (test code = 412) PLATELET COUNT (BEAKER) (test 367 K/CU MM 150-430 code = 756) MEAN PLATELET VOLUME (BEAKER) 9.4 fL 6.0-11.5 (test code = 754) NUCLEATED RED BLOOD CELLS 0 /100 WBC 0-0 (BEAKER) (test code = 413) NEUTROPHILS RELATIVE PERCENT 46 % (BEAKER) (test code = 429) LYMPHOCYTES RELATIVE PERCENT 38 % (BEAKER) (test code = 430) MONOCYTES RELATIVE PERCENT 11 % (BEAKER) (test code = 431) EOSINOPHILS RELATIVE PERCENT 4 % (BEAKER) (test code = 432) BASOPHILS RELATIVE PERCENT 1 % (BEAKER) (test code = 437) NEUTROPHILS ABSOLUTE COUNT 2.88 K/ L 1.80-8.00 (BEAKER) (test code = 670) LYMPHOCYTES ABSOLUTE COUNT 2.36 K/ L 1.48-4.50 (BEAKER) (test code = 414) MONOCYTES ABSOLUTE COUNT (BEAKER) 0.67 K/ L 0.00-1.30 (test code = 415) EOSINOPHILS ABSOLUTE COUNT 0.24 K/ L 0.00-0.50 (BEAKER) (test code = 416) BASOPHILS ABSOLUTE COUNT (BEAKER) 0.06 K/ L 0.00-0.20 (test code = 417) IMMATURE GRANULOCYTES-RELATIVE 0.60 % 0.00-0.00 H PERCENT (BEAKER) (test code = 2801) POCT-GLUCOSE [id number] 23:24:47 Test Item Value Reference Range Interpretation Comments POC-GLUCOSE METER 97 mg/dL 70-110 : TESTED A T [facility] [address] (BEAKER) (test code = [address], 1538) [place] [address]: Roll Icer/Techni carroll ID = [id number] for Radha Cavazos POCT-GLUCOSE [id number] 16:55:17 Test Item Value Reference Range Interpretation Comments POC-GLUCOSE METER 112 mg/dL 70-110 H : TESTED A T [facility] [address] (BEAKER) (test code [address] [facility], = 1538) [place] [address]: Roll Icer/Techni carroll ID = [id number] for Wanda Rosales POCT-GLUCOSE [id number] 11:46:41 Test Item Value Reference Range Interpretation Comments POC-GLUCOSE METER 123 mg/dL 70-110 H : TESTED A T [facility] [address]17 (BEAKER) (test code [address] [facility], = 1538) [place] [address]: Roll Icer/Techni carroll ID = [id number] for Wanda Rosales POCT-GLUCOSE [id number] 06:44:46 Test Item Value Reference Range Interpretation Comments POC-GLUCOSE METER 122 mg/dL 70-110 H : Notified RN/MD: TESTED (BEAKER) (test code AT [facility] [address] = 1538) [place] [address]: Roll Icer/Techni carroll ID = [id number] for Kathie Bravo BASIC METABOLIC [id number] 04:00:34 Test Item Value Reference Range Interpretation Comments SODIUM (BEAKER) 140 meq/L 135-148 (test code = 381) POTASSIUM 3.9 meq/L 3.6-5.5 (BEAKER) (test code = 379) CHLORIDE (BEAKER) 102 meq/L 98-106 (test code = 382) CO2 (BEAKER) 27 meq/L 20-29 (test code = 355) BLOOD UREA 7 mg/dL 10-26 L NITROGEN (BEAKER) (test code = 354) CREATININE 0.55 mg/dL 0.50-1.20 (BEAKER) (test code = 358) GLUCOSE RANDOM 109 mg/dL 70-110 (BEAKER) (test code = 652) CALCIUM (BEAKER) 8.8 mg/dL 8.5-10.5 (test code = 697) EGFR (BEAKER) 129 Interpretatio n of eGFR (test code = mL/min/1.73 values Stage De scription 1092) sq m Result G1 Tyra l or high >=90 G2 Mildly decreased 60-89 G3a Mildl y to moderately 45-5 9 G3b Moderately to s everely 30-44 G4 Severl y decreased 15-29 G5 Kidney failure <15Reported eGF R is based on the CKD-EPI 2021 equation that d oes not use a race coefficientEsti mated GFR is not as accur ate as Creatinine Papi sandor in predicting glom erular filtration rate . Estimated GFR is not appl icable for dialysis patien ts Roll Icer ID - [id number] ID - [id number] ID - LBITFYGGN093Fywfoaww ID - SIJZCQLOD985Puvfamdm ID - [id number] ID - [id number] ID - [id number] ID - YDIUYLBKH113Evzyxjcl ID - [id number] ID - [id number] 03:35:09 Test Item Value Reference Range Interpretation Comments MAGNESIUM (BEAKER) (test code = 1.5 mg/dL 1.5-3.0 627) Roll Icer ID - KPMGWZVTF162Kspnelky ID - AREZANKLZ313Fsdkhkhv ID - [id number] ID - [id number] 03:32:46 Test Item Value Reference Range Interpretation Comments PHOSPHORUS (BEAKER) (test code = 4.3 mg/dL 2.5-4.5 604) Roll Icer ID - [id number] W/PLT COUNT & AUTO [id number] 03:13:41 Test Item Value Reference Range Interpretation Comments WHITE BLOOD CELL COUNT (BEAKER) 6.3 K/ L 4.0-10.0 (test code = 775) RED BLOOD CELL COUNT (BEAKER) 4.08 M/ L 4.20-5.80 L (test code = 761) HEMOGLOBIN (BEAKER) (test code = 11.1 GM/DL 13.0-16.8 L 410) HEMATOCRIT (BEAKER) (test code = 35.1 % 36.0-50.0 L 411) MEAN CORPUSCULAR VOLUME (BEAKER) 86 fL 82-99 (test code = 753) MEAN CORPUSCULAR HEMOGLOBIN 27.2 pg 27.0-33.0 (BEAKER) (test code = 751) MEAN CORPUSCULAR HEMOGLOBIN CONC 31.6 GM/DL 32.0-36.0 L (BEAKER) (test code = 752) RED CELL DISTRIBUTION WIDTH 14.6 % 12.0-15.0 (BEAKER) (test code = 412) PLATELET COUNT (BEAKER) (test 392 K/CU MM 150-430 code = 756) MEAN PLATELET VOLUME (BEAKER) 9.2 fL 6.0-11.5 (test code = 754) NUCLEATED RED BLOOD CELLS 0 /100 WBC 0-0 (BEAKER) (test code = 413) NEUTROPHILS RELATIVE PERCENT 61 % (BEAKER) (test code = 429) LYMPHOCYTES RELATIVE PERCENT 25 % (BEAKER) (test code = 430) MONOCYTES RELATIVE PERCENT 11 % (BEAKER) (test code = 431) EOSINOPHILS RELATIVE PERCENT 3 % (BEAKER) (test code = 432) BASOPHILS RELATIVE PERCENT 1 % (BEAKER) (test code = 437) NEUTROPHILS ABSOLUTE COUNT 3.81 K/ L 1.80-8.00 (BEAKER) (test code = 670) LYMPHOCYTES ABSOLUTE COUNT 1.55 K/ L 1.48-4.50 (BEAKER) (test code = 414) MONOCYTES ABSOLUTE COUNT (BEAKER) 0.72 K/ L 0.00-1.30 (test code = 415) EOSINOPHILS ABSOLUTE COUNT 0.16 K/ L 0.00-0.50 (BEAKER) (test code = 416) BASOPHILS ABSOLUTE COUNT (BEAKER) 0.03 K/ L 0.00-0.20 (test code = 417) IMMATURE GRANULOCYTES-RELATIVE 0.50 % 0.00-0.00 H PERCENT (BEAKER) (test code = 2801) POCT-GLUCOSE [id number] 00:19:47 Test Item Value Reference Range Interpretation Comments POC-GLUCOSE METER 116 mg/dL 70-110 H : Notified RN/MD: TESTED (BEAKER) (test code AT [facility] [address] = 1538) [place], [facility] [place] [address]: Roll Icer/Techni carroll ID = [id number] for Kathie Bravo POCT-GLUCOSE [id number] 17:57:14 Test Item Value Reference Range Interpretation Comments POC-GLUCOSE METER 105 mg/dL 70-110 : TESTED A T [facility] 1317 (BEAKER) (test code [address] [facility], = 1538) [facility] [place] [address]: Roll Icer/Techni carroll ID = [id number] for Sarah Bazan RAD, CHEST, 1 VIEW, NON [id number] 14:50:00Reason for exam:->pneumonia and pleural effusion follow upShould this be performed at the bedside?->Yes [facility] 1985 Sex: MFINAL REPORT Exam: RAD, CHEST, 1 VIEW, NON DEPTDate: 04/30/2022 2:48 PM Indication: Pneumonia follow-up Comparison: Chest CT and chest radiograph 04/25/2022. IMPRESSION: Lines/Tubes:NoneLungs:No significant change in patchy bilateral airspace opacities concerning for multifocal pneumonia. Pleura:No significant change in small to moderate right-sided layering pleural effusion. No pneumothorax. Heart/Mediastinum:The cardiomediastinal silhouette is unchanged in size and contour. Bones/Soft Tissues: Unchanged. Signed: Tariq Monte MDReport Verified Date/Time: 04/30/2022 14:50:00 Reading Location: [facility] Radiology Reading Room BLOOD [id number] 07:01:57 Test Item Value Reference Range Interpretation Comments CULTURE (BEAKER) (test No growth in 5 days code = 1095) BLOOD [id number] 07:01:57 Test Item Value Reference Range Interpretation Comments CULTURE (BEAKER) (test No growth in 5 days code = 1095) BASIC METABOLIC [id number] 04:25:08 Test Item Value Reference Range Interpretation Comments SODIUM (BEAKER) 139 meq/L 135-148 (test code = 381) POTASSIUM 3.6 meq/L 3.6-5.5 (BEAKER) (test code = 379) CHLORIDE (BEAKER) 97 meq/L 98-106 L (test code = 382) CO2 (BEAKER) 31 meq/L 20-29 H (test code = 355) BLOOD UREA 6 mg/dL 10-26 L NITROGEN (BEAKER) (test code = 354) CREATININE 0.55 mg/dL 0.50-1.20 (BEAKER) (test code = 358) GLUCOSE RANDOM 100 mg/dL 70-110 (BEAKER) (test code = 652) CALCIUM (BEAKER) 8.9 mg/dL 8.5-10.5 (test code = 697) EGFR (BEAKER) 129 Interpretatio n of eGFR (test code = mL/min/1.73 values Stage De scription 1092) sq m Result G1 Tyra l or high >=90 G2 Mildly decreased 60-89 G3a Mildl y to moderately 45-5 9 G3b Moderately to s everely 30-44 G4 Severl y decreased 15-29 G5 Kidney failure <15Reported eGF R is based on the CKD-EPI 2020 equation that d oes not use a race coefficientEsti mated GFR is not as accur ate as Creatinine Papi pat[place] in predicting glom erular filtration rate . Estimated GFR is not appl icable for dialysis patien ts Roll Icer ID - LITOOperator ID - LITOOperator ID - LITOOperator ID - LITOOperator ID - LITOOperator ID - LITOOperator ID - LITOOperator ID - LITOOperator ID - LITOOperator ID - [id number] 04:21:01 Test Item Value Reference Range Interpretation Comments MAGNESIUM (BEAKER) (test code = 2.0 mg/dL 1.5-3.0 627) Roll Icer ID - LITOOperator ID - LITOOperator ID - LITOOperator ID - LEYDI [id number] 04:18:30 Test Item Value Reference Range Interpretation Comments PHOSPHORUS (BEAKER) (test code = 3.5 mg/dL 2.5-4.5 604) Roll Icer ID - LITOCBC W/PLT COUNT & AUTO [id number] 04:01:48 Test Item Value Reference Range Interpretation Comments WHITE BLOOD CELL COUNT (BEAKER) 6.0 K/ L 4.0-10.0 (test code = 775) RED BLOOD CELL COUNT (BEAKER) 3.95 M/ L 4.20-5.80 L (test code = 761) HEMOGLOBIN (BEAKER) (test code = 10.8 GM/DL 13.0-16.8 L 410) HEMATOCRIT (BEAKER) (test code = 34.3 % 36.0-50.0 L 411) MEAN CORPUSCULAR VOLUME (BEAKER) 87 fL 82-99 (test code = 753) MEAN CORPUSCULAR HEMOGLOBIN 27.3 pg 27.0-33.0 (BEAKER) (test code = 751) MEAN CORPUSCULAR HEMOGLOBIN CONC 31.5 GM/DL 32.0-36.0 L (BEAKER) (test code = 752) RED CELL DISTRIBUTION WIDTH 14.4 % 12.0-15.0 (BEAKER) (test code = 412) PLATELET COUNT (BEAKER) (test 381 K/CU MM 150-430 code = 756) MEAN PLATELET VOLUME (BEAKER) 9.1 fL 6.0-11.5 (test code = 754) NUCLEATED RED BLOOD CELLS 0 /100 WBC 0-0 (BEAKER) (test code = 413) NEUTROPHILS RELATIVE PERCENT 60 % (BEAKER) (test code = 429) LYMPHOCYTES RELATIVE PERCENT 26 % (BEAKER) (test code = 430) MONOCYTES RELATIVE PERCENT 10 % (BEAKER) (test code = 431) EOSINOPHILS RELATIVE PERCENT 4 % (BEAKER) (test code = 432) BASOPHILS RELATIVE PERCENT 1 % (BEAKER) (test code = 437) NEUTROPHILS ABSOLUTE COUNT 3.55 K/ L 1.80-8.00 (BEAKER) (test code = 670) LYMPHOCYTES ABSOLUTE COUNT 1.58 K/ L 1.48-4.50 (BEAKER) (test code = 414) MONOCYTES ABSOLUTE COUNT (BEAKER) 0.57 K/ L 0.00-1.30 (test code = 415) EOSINOPHILS ABSOLUTE COUNT 0.21 K/ L 0.00-0.50 (BEAKER) (test code = 416) BASOPHILS ABSOLUTE COUNT (BEAKER) 0.05 K/ L 0.00-0.20 (test code = 417) IMMATURE GRANULOCYTES-RELATIVE 0.30 % 0.00-0.00 H PERCENT (BEAKER) (test code = 2801) MRSA [id number] 08:59:02 Test Item Value Reference Range Interpretation Comments Result (test code = 6463-4) [id number] 08:59:02 Test Item Value Reference Range Interpretation Comments Result (test code = 6463-4) No MRSA isolated [facility] [id number] 08:59:02 Test Item Value Reference Range Interpretation Comments CULTURE (BEAKER) (test code No MRSA isolated = 1095) POCT-GLUCOSE [id number] 07:24:51 Test Item Value Reference Range Interpretation Comments POC-GLUCOSE METER 87 mg/dL 70-110 : TESTED A T [facility] 1317 (BEAKER) (test code = [address], [address]38) [facility] 77 478: Roll Icer/Techni carroll ID = [id number] for Marlyn May BASIC METABOLIC [id number] 06:38:30 Test Item Value Reference Range Interpretation Comments SODIUM (BEAKER) 141 meq/L 135-148 (test code = 381) POTASSIUM 3.7 meq/L 3.6-5.5 (BEAKER) (test code = 379) CHLORIDE (BEAKER) 102 meq/L 98-106 (test code = 382) CO2 (BEAKER) 28 meq/L 20-29 (test code = 355) BLOOD UREA 7 mg/dL 10-26 L NITROGEN (BEAKER) (test code = 354) CREATININE 0.51 mg/dL 0.50-1.20 (BEAKER) (test code = 358) GLUCOSE RANDOM 91 mg/dL 70-110 (BEAKER) (test code = 652) CALCIUM (BEAKER) 9.0 mg/dL 8.5-10.5 (test code = 697) EGFR (BEAKER) 131 Interpretatio n of eGFR (test code = mL/min/1.73 values Stage De scription 1092) sq m Result G1 Tyra l or high >=90 G2 Mildly decreased 60-89 G3a Mildl y to moderately 45-5 9 G3b Moderately to s everely 30-44 G4 Severl y decreased 15-29 G5 Kidney failure <15Reported eGF R is based on the CKD-EPI 2021 equation that d oes not use a race coefficientEsti mated GFR is not as accur ate as Creatinine Papi sandor in predicting glom erular filtration rate . Estimated GFR is not appl icable for dialysis patien ts Roll Icer ID - [id number] ID - [id number] ID - KFMRBJNVP456Mlpqpznl ID - KKNCTSZZR745Wpxheyxh ID - LQZPKFBPM091Klacxdcm ID - BFAFZSHZF404Phqkbdtt ID - EXAYPIJJO522Ydkogjsa ID - IZFISCSLM121Dwqpfhrr ID - KMGNGRBBH635Jtxkyjsk ID - [id number] 06:36:35 Test Item Value Reference Range Interpretation Comments MAGNESIUM (BEAKER) (test code = 1.5 mg/dL 1.5-3.0 627) Roll Icer ID - [id number] ID - [id number] ID - CMTGPQMXQ485Ihcttafw ID - [id number] 06:34:06 Test Item Value Reference Range Interpretation Comments PHOSPHORUS (BEAKER) (test code = 3.2 mg/dL 2.5-4.5 604) Roll Icer ID - [id number] W/PLT COUNT & AUTO [id number] 06:14:33 Test Item Value Reference Range Interpretation Comments WHITE BLOOD CELL COUNT (BEAKER) 5.8 K/ L 4.0-10.0 (test code = 775) RED BLOOD CELL COUNT (BEAKER) 4.03 M/ L 4.20-5.80 L (test code = 761) HEMOGLOBIN (BEAKER) (test code = 11.2 GM/DL 13.0-16.8 L 410) HEMATOCRIT (BEAKER) (test code = 35.1 % 36.0-50.0 L 411) MEAN CORPUSCULAR VOLUME (BEAKER) 87 fL 82-99 (test code = 753) MEAN CORPUSCULAR HEMOGLOBIN 27.8 pg 27.0-33.0 (BEAKER) (test code = 751) MEAN CORPUSCULAR HEMOGLOBIN CONC 31.9 GM/DL 32.0-36.0 L (BEAKER) (test code = 752) RED CELL DISTRIBUTION WIDTH 14.2 % 12.0-15.0 (BEAKER) (test code = 412) PLATELET COUNT (BEAKER) (test 357 K/CU MM 150-430 code = 756) MEAN PLATELET VOLUME (BEAKER) 8.6 fL 6.0-11.5 (test code = 754) NUCLEATED RED BLOOD CELLS 0 /100 WBC 0-0 (BEAKER) (test code = 413) NEUTROPHILS RELATIVE PERCENT 63 % (BEAKER) (test code = 429) LYMPHOCYTES RELATIVE PERCENT 23 % (BEAKER) (test code = 430) MONOCYTES RELATIVE PERCENT 10 % (BEAKER) (test code = 431) EOSINOPHILS RELATIVE PERCENT 2 % (BEAKER) (test code = 432) BASOPHILS RELATIVE PERCENT 1 % (BEAKER) (test code = 437) NEUTROPHILS ABSOLUTE COUNT 3.63 K/ L 1.80-8.00 (BEAKER) (test code = 670) LYMPHOCYTES ABSOLUTE COUNT 1.33 K/ L 1.48-4.50 L (BEAKER) (test code = 414) MONOCYTES ABSOLUTE COUNT (BEAKER) 0.58 K/ L 0.00-1.30 (test code = 415) EOSINOPHILS ABSOLUTE COUNT 0.13 K/ L 0.00-0.50 (BEAKER) (test code = 416) BASOPHILS ABSOLUTE COUNT (BEAKER) 0.04 K/ L 0.00-0.20 (test code = 417) IMMATURE GRANULOCYTES-RELATIVE 0.70 % 0.00-0.00 H PERCENT (BEAKER) (test code = 2801) [id number] 06:52:19 Test Item Value Reference Range Interpretation Comments MAGNESIUM (BEAKER) (test code = 1.7 mg/dL 1.5-3.0 627) Roll Icer ID - [id number] ID - [id number] ID - ZCJT74Hkofjtam ID - [id number] BASIC METABOLIC [id number] 06:51:00 Test Item Value Reference Range Interpretation Comments SODIUM (BEAKER) 144 meq/L 135-148 (test code = 381) POTASSIUM 4.2 meq/L 3.6-5.5 (BEAKER) (test code = 379) CHLORIDE (BEAKER) 104 meq/L 98-106 (test code = 382) CO2 (BEAKER) 26 meq/L 20-29 (test code = 355) BLOOD UREA 10 mg/dL 10-26 NITROGEN (BEAKER) (test code = 354) CREATININE 0.55 mg/dL 0.50-1.20 (BEAKER) (test code = 358) GLUCOSE RANDOM 89 mg/dL 70-110 (BEAKER) (test code = 652) CALCIUM (BEAKER) 9.5 mg/dL 8.5-10.5 (test code = 697) EGFR (BEAKER) 129 Interpretatio n of eGFR (test code = mL/min/1.73 values Stage De scription 1092) sq m Result G1 Norm al or high >=90 G2 Mildly decreased 60-89 G3a Mildl y to moderately 45-5 9 G3b Moderately to s everely 30-44 G4 Severl y decreased 15-29 G5 Kidney failure <15Reported eGF R is based on the CKD-EPI 2020 equation that d oes not use a race coefficientEsti mated GFR is not as accur ate as Creatinine Papi sandor in predicting glom erular filtration rate . Estimated GFR is not appl icable for dialysis patien ts Roll Icer ID - [id number] ID - [id number] ID - CQTM51Lndvqtgy ID - UIAC56Fqlbscpf ID - XHYS79Cbiilpoq ID - DZHU85Tqfndlrw ID - [id number] ID - JEXG17Duzmkjzs ID - [id number] W/PLT COUNT & AUTO [id number] 06:24:51 Test Item Value Reference Range Interpretation Comments WHITE BLOOD CELL COUNT (BEAKER) 4.5 K/ L 4.0-10.0 (test code = 775) RED BLOOD CELL COUNT (BEAKER) 4.16 M/ L 4.20-5.80 L (test code = 761) HEMOGLOBIN (BEAKER) (test code = 11.4 GM/DL 13.0-16.8 L 410) HEMATOCRIT (BEAKER) (test code = 36.7 % 36.0-50.0 411) MEAN CORPUSCULAR VOLUME (BEAKER) 88 fL 82-99 (test code = 753) MEAN CORPUSCULAR HEMOGLOBIN 27.4 pg 27.0-33.0 (BEAKER) (test code = 751) MEAN CORPUSCULAR HEMOGLOBIN CONC 31.1 GM/DL 32.0-36.0 L (BEAKER) (test code = 752) RED CELL DISTRIBUTION WIDTH 14.6 % 12.0-15.0 (BEAKER) (test code = 412) PLATELET COUNT (BEAKER) (test 441 K/CU MM 150-430 H code = 756) MEAN PLATELET VOLUME (BEAKER) 8.6 fL 6.0-11.5 (test code = 754) NUCLEATED RED BLOOD CELLS 0 /100 WBC 0-0 (BEAKER) (test code = 413) NEUTROPHILS RELATIVE PERCENT 44 % (BEAKER) (test code = 429) LYMPHOCYTES RELATIVE PERCENT 41 % (BEAKER) (test code = 430) MONOCYTES RELATIVE PERCENT 8 % (BEAKER) (test code = 431) EOSINOPHILS RELATIVE PERCENT 6 % (BEAKER) (test code = 432) BASOPHILS RELATIVE PERCENT 1 % (BEAKER) (test code = 437) NEUTROPHILS ABSOLUTE COUNT 2.01 K/ L 1.80-8.00 (BEAKER) (test code = 670) LYMPHOCYTES ABSOLUTE COUNT 1.84 K/ L 1.48-4.50 (BEAKER) (test code = 414) MONOCYTES ABSOLUTE COUNT (BEAKER) 0.34 K/ L 0.00-1.30 (test code = 415) EOSINOPHILS ABSOLUTE COUNT 0.28 K/ L 0.00-0.50 (BEAKER) (test code = 416) BASOPHILS ABSOLUTE COUNT (BEAKER) 0.04 K/ L 0.00-0.20 (test code = 417) IMMATURE GRANULOCYTES-RELATIVE 0.70 % 0.00-0.00 H PERCENT (BEAKER) (test code = 2801) FL, ESOPH, SWALLOW FUNCTION, WITH CINE OR [id number] 14:35:00Reason for exam:->[facility] 1985 Sex: MFINAL REPORT EXAMINATION: Modified barium swallow study INDICATION: Suspect aspiration COMPARISON: None. TECHNIQUE: The examination was performed in conjunction with speech pathology. Varying consistencies of barium was administered under lateral fluoroscopic observation. Fluoro Time:69.1 secImages: 51 IMPRESSION:Please refer to speech pathologist's note from same date for further description. Signed: Irma Arechiga Verified Date/Time: 04/27/2022 14:35:47 Reading Location:[facility] Radiology Reading Room [id number] 05:19:15 Test Item Value Reference Range Interpretation Comments MAGNESIUM (BEAKER) (test code = 1.8 mg/dL 1.5-3.0 627) Roll Icer ID - LITOOperator ID - LITOOperator ID - LITOOperator ID - LITOBASIC METABOLIC [id number] 05:17:57 Test Item Value Reference Range Interpretation Comments SODIUM (BEAKER) 143 meq/L 135-148 (test code = 381) POTASSIUM 4.1 meq/L 3.6-5.5 (BEAKER) (test code = 379) CHLORIDE (BEAKER) 101 meq/L 98-106 (test code = 382) CO2 (BEAKER) 31 meq/L 20-29 H (test code = 355) BLOOD UREA 10 mg/dL 10-26 NITROGEN (BEAKER) (test code = 354) CREATININE 0.59 mg/dL 0.50-1.20 (BEAKER) (test code = 358) GLUCOSE RANDOM 97 mg/dL 70-110 (BEAKER) (test code = 652) CALCIUM (BEAKER) 9.7 mg/dL 8.5-10.5 (test code = 697) EGFR (BEAKER) 126 Interpretatio n of eGFR (test code = mL/min/1.73 values Stage De scription 1092) sq m Result G1 Tyra l or high >=90 G2 Mildly decreased 60-89 G3a Mildl y to moderately 45-5 9 G3b Moderately to s everely 30-44 G4 Severl y decreased 15-29 G5 Kidney failure <15Reported eGF R is based on the CKD-EPI 2020 equation that d oes not use a race coefficientEsti mated GFR is not as accur ate as Creatinine Papi sandor in predicting glom erular filtration rate . Estimated GFR is not appl icable for dialysis patien ts Roll Icer ID - LITOOperator ID - LITOOperator ID - LITOOperator ID - LITOOperator ID - LITOOperator ID - LITOOperator ID - LITOOperator ID - LITOOperator ID - LITOCBC W/PLT COUNT & AUTO [id number] 05:08:26 Test Item Value Reference Range Interpretation Comments WHITE BLOOD CELL COUNT (BEAKER) 6.7 K/ L 4.0-10.0 (test code = 775) RED BLOOD CELL COUNT (BEAKER) 4.24 M/ L 4.20-5.80 (test code = 761) HEMOGLOBIN (BEAKER) (test code = 11.6 GM/DL 13.0-16.8 L 410) HEMATOCRIT (BEAKER) (test code = 37.4 % 36.0-50.0 411) MEAN CORPUSCULAR VOLUME (BEAKER) 88 fL 82-99 (test code = 753) MEAN CORPUSCULAR HEMOGLOBIN 27.4 pg 27.0-33.0 (BEAKER) (test code = 751) MEAN CORPUSCULAR HEMOGLOBIN CONC 31.0 GM/DL 32.0-36.0 L (BEAKER) (test code = 752) RED CELL DISTRIBUTION WIDTH 14.7 % 12.0-15.0 (BEAKER) (test code = 412) PLATELET COUNT (BEAKER) (test 519 K/CU MM 150-430 H code = 756) MEAN PLATELET VOLUME (BEAKER) 9.0 fL 6.0-11.5 (test code = 754) NUCLEATED RED BLOOD CELLS 0 /100 WBC 0-0 (BEAKER) (test code = 413) NEUTROPHILS RELATIVE PERCENT 57 % (BEAKER) (test code = 429) LYMPHOCYTES RELATIVE PERCENT 30 % (BEAKER) (test code = 430) MONOCYTES RELATIVE PERCENT 8 % (BEAKER) (test code = 431) EOSINOPHILS RELATIVE PERCENT 5 % (BEAKER) (test code = 432) BASOPHILS RELATIVE PERCENT 1 % (BEAKER) (test code = 437) NEUTROPHILS ABSOLUTE COUNT 3.78 K/ L 1.80-8.00 (BEAKER) (test code = 670) LYMPHOCYTES ABSOLUTE COUNT 1.97 K/ L 1.48-4.50 (BEAKER) (test code = 414) MONOCYTES ABSOLUTE COUNT (BEAKER) 0.52 K/ L 0.00-1.30 (test code = 415) EOSINOPHILS ABSOLUTE COUNT 0.34 K/ L 0.00-0.50 (BEAKER) (test code = 416) BASOPHILS ABSOLUTE COUNT (BEAKER) 0.04 K/ L 0.00-0.20 (test code = 417) IMMATURE GRANULOCYTES-RELATIVE 0.30 % 0.00-0.00 H PERCENT (BEAKER) (test code = 2801) CT, CHEST, WITH [id number] 16:03:00Unlisted Reason for Exam - Click Yes and Enter Reason Below->No [facility] : 1985 Sex: MFINAL REPORT CT, CHEST, WITH CONTRAST INDICATION: Pneumonia, effusion or abscess suspected, x-ray done COMPARISON: CT chest 04/15/2022 TECHNIQUE: CT, CHEST, WITH CONTRAST. This exam was performed according to our departmental dose optimization program which includes automated exposure control, adjustment of the mA and/or kV according to patient size and/or use of iterative reconstructio n technique. FINDINGS: Lungs: Moderate to large consolidation with air bronchograms in the right lower lobe. Patchy airspace opacities in the left lower lobe, also with some bronchograms. No suspiciouspulmonary nodules Central airways: Patent.Pleura: Trace bilateral pleural effusions. No pneumothorax. Previously seen right pneumothorax has resolved. Right-sided chest tube has been removed.Lymph nodes: UnremarkableCardiovascular: UnremarkableThyroid gland: Visualized portion unremarkableIncluded upper abdomen: Unremarkable.Chest wall: Unremarkable.Bones: There is a levoscoliotic curvature of the thoracic spine. IMPRESSION: 1. Moderate to large consolidation in the right lower lobe with air bronchograms, increased from prior, concerning for pneumonia. 2. Mild patchy consolidative opacities in the left lower lobe also with air bronchograms, similar to prior also concerning for infection. 3. Trace bilateral pleural effusions. 4. Resolution of previously seen right pneumothorax. Signed: Irma Arechiga MDReport Verified Date/Time: 04/26/2022 16:03:02 Reading Location: [facility] Radiology Reading Room VANCOMYCIN LEVEL, [id number] 12:34:15 Test Item Value Reference Range Interpretation Comments VANCOMYCIN TROUGH (BEAKER) (test 28.9 ug/mL 10.0-20.0 H code = 522) Roll Icer ID - [id number] 05:37:30 Test Item Value Reference Range Interpretation Comments MAGNESIUM (BEAKER) (test code = 2.1 mg/dL 1.5-3.0 627) Roll Icer ID - MLNW73Fexsyjps ID - AHKY35Mpzsudah ID - WMUQ95Hrpldpyc ID - [id number] BASIC METABOLIC [id number] 05:36:06 Test Item Value Reference Range Interpretation Comments SODIUM (BEAKER) 144 meq/L 135-148 (test code = 381) POTASSIUM 4.1 meq/L 3.6-5.5 (BEAKER) (test code = 379) CHLORIDE (BEAKER) 104 meq/L 98-106 (test code = 382) CO2 (BEAKER) 29 meq/L 20-29 (test code = 355) BLOOD UREA 9 mg/dL 10-26 L NITROGEN (BEAKER) (test code = 354) CREATININE 0.52 mg/dL 0.50-1.20 (BEAKER) (test code = 358) GLUCOSE RANDOM 88 mg/dL 70-110 (BEAKER) (test code = 652) CALCIUM (BEAKER) 9.1 mg/dL 8.5-10.5 (test code = 697) EGFR (BEAKER) 130 Interpretatio n of eGFR (test code = mL/min/1.73 values Stage De scription 1092) sq m Result G1 Tyra l or high >=90 G2 Mildly decreased 60-89 G3a Mildl y to moderately 45-5 9 G3b Moderately to s everely 30-44 G4 Severl y decreased 15-29 G5 Kidney failure <15Reported eGF R is based on the CKD-EPI 2020 equation that d oes not use a race coefficientEsti mated GFR is not as accur ate as Creatinine Papi sandor in predicting glom erular filtration rate . Estimated GFR is not appl icable for dialysis patien ts Roll Icer ID - [id number] ID - AXUS77Oddxvixq ID - TALI17Mujpegiv ID - YAOR08Sfcshple ID - YUNK78Kszagqpc ID - NZAV77Jreldceg ID - WEWQ99Vwnnhwre ID - WOQY65Fnxzyysh ID - [id number] W/PLT COUNT & AUTO [id number] 05:14:42 Test Item Value Reference Range Interpretation Comments WHITE BLOOD CELL COUNT (BEAKER) 7.3 K/ L 4.0-10.0 (test code = 775) RED BLOOD CELL COUNT (BEAKER) 3.98 M/ L 4.20-5.80 L (test code = 761) HEMOGLOBIN (BEAKER) (test code = 11.0 GM/DL 13.0-16.8 L 410) HEMATOCRIT (BEAKER) (test code = 35.3 % 36.0-50.0 L 411) MEAN CORPUSCULAR VOLUME (BEAKER) 89 fL 82-99 (test code = 753) MEAN CORPUSCULAR HEMOGLOBIN 27.6 pg 27.0-33.0 (BEAKER) (test code = 751) MEAN CORPUSCULAR HEMOGLOBIN CONC 31.2 GM/DL 32.0-36.0 L (BEAKER) (test code = 752) RED CELL DISTRIBUTION WIDTH 14.7 % 12.0-15.0 (BEAKER) (test code = 412) PLATELET COUNT (BEAKER) (test 468 K/CU MM 150-430 H code = 756) MEAN PLATELET VOLUME (BEAKER) 8.9 fL 6.0-11.5 (test code = 754) NUCLEATED RED BLOOD CELLS 0 /100 WBC 0-0 (BEAKER) (test code = 413) NEUTROPHILS RELATIVE PERCENT 58 % (BEAKER) (test code = 429) LYMPHOCYTES RELATIVE PERCENT 29 % (BEAKER) (test code = 430) MONOCYTES RELATIVE PERCENT 8 % (BEAKER) (test code = 431) EOSINOPHILS RELATIVE PERCENT 5 % (BEAKER) (test code = 432) BASOPHILS RELATIVE PERCENT 0 % (BEAKER) (test code = 437) NEUTROPHILS ABSOLUTE COUNT 4.19 K/ L 1.80-8.00 (BEAKER) (test code = 670) LYMPHOCYTES ABSOLUTE COUNT 2.09 K/ L 1.48-4.50 (BEAKER) (test code = 414) MONOCYTES ABSOLUTE COUNT (BEAKER) 0.58 K/ L 0.00-1.30 (test code = 415) EOSINOPHILS ABSOLUTE COUNT 0.37 K/ L 0.00-0.50 (BEAKER) (test code = 416) BASOPHILS ABSOLUTE COUNT (BEAKER) 0.03 K/ L 0.00-0.20 (test code = 417) IMMATURE GRANULOCYTES-RELATIVE 0.50 % 0.00-0.00 H PERCENT (BEAKER) (test code = 2801) Strep pneumoniae [id number] 18:25:58 Test Item Value Reference Range Interpretation Comments Strep pneumoniae Presumptive negative Presumptive Antigen (test code = [place] [address]-5) pneumonia - see pneumococcal comment pneumonia - see comment, Presumptive negative for pneumococcal meningitis - see comment CHRISTINA (test code = CHRISTINA) Presumptive negative for pneumococcal pneumonia, suggesting no current or recent pneumococcal infection. Infection due to S. pneumoniae cannot be ruled out since the antigen present in the sample may be below the detection limit of the test. Lab Interpretation Normal (test code = 12380-4) [facility] [id number] 18:25:58 Test Item Value Reference Range Interpretation Comments Strep pneumoniae Presumptive negative Presumptive Antigen (test code = [place] [address]-2) pneumonia - see pneumococcal comment pneumonia - see comment, Presumptive negative for pneumococcal meningitis - see comment CHRISTINA (test code = CHRISTINA) Presumptive negative for pneumococcal pneumonia, suggesting no current or recent pneumococcal infection. Infection due to S. pneumoniae cannot be ruled out since the antigen present in the sample may be below the detection limit of the test. Lab Interpretation Normal (test code = 09653-3) [facility] [id number] 18:25:58 Test Item Value Reference Range Interpretation Comments STREP PNEUMONIAE Presumptive negative Presumptive negative ANTIGEN (BEAKER) for pneumococcal for pneumococcal (test code = 1615) pneumonia - see pneumonia - see comment commen Presumptive negative for pneumococcal pneumonia, suggesting no current or recent pneumococcal infection. Infection due to S. pneumoniae cannot be ruled out since the antigen present in the sample may be below the detection limit of the test. RAD, CHEST, 1 VIEW, NON [id number] 10:07:00Reason for exam:- >PneumoniaShould this be performed at the bedside?->Yes [facility] : 1985 Sex: MFINAL REPORT Chest, 1 view, 04/25/2022 9:51 AM. History: Pneumonia. Comparison: 04/19/2022. Discussion: The cardiac silhouette is stable. Bilateral interstitial and patchy airspace opacities are present, increased slightly on the right lower lobe, with increased widening of the right pleural margin. There is no pneumothorax. The soft tissues and osseous structures are intact. IMPRESSION: Slightly increased right pleuroparenchymal opacities. Signed: Derrick Huttonort Verified Date/Time: 04/25/2022 10:07:18 Reading Location: [facility] Mammo Reading Room [id number] 06:13:06 Test Item Value Reference Range Interpretation Comments PROCALCITONIN (BEAKER) (test code = < ng/mL <0.05 3036) SEPSIS RISK (ng/mL)Low: 0.05-0.50Intermediate: 0.51-2.00High: >=2.01 PROTHROMBIN TIME/[id number] 05:59:42 Test Item Value Reference Range Interpretation Comments PROTIME (BEAKER) 11.4 seconds 9.3-12.0 Final Infor mation (test code = 759) (Auto Outp ut) INR (BEAKER) (test 1.04 See_Comment Final Inf ormation code = 370) (Auto Output) [Automated mess age] The system [employer] generated this result transmitted ref erence range: <=5.90. The reference range was not used to int erpret this result as normal/abnormal . RECOMMENDED COUMADIN/WARFARIN INR THERAPY RANGESSTANDARD DOSE: 2.0 - 3.0 Includes: PROPHYLAXIS for venous thrombosis, systemic embolization; TREATMENT for venous thrombosis and/or pulmonary embolus.HIGH RISK: Target INR is 2.5-3.5 for patients with mechanical heart valves.COMPREHENSIVE METABOLIC PANEL 2022-04-25 05:52:46 Test Item Value Reference Range Interpretation Comments TOTAL PROTEIN 6.7 gm/dL 6.0-8.5 (BEAKER) (test code = 770) ALBUMIN (BEAKER) 2.9 g/dL 3.5-5.0 L (test code = 1145) ALKALINE 105 U/L 30-115 PHOSPHATASE (BEAKER) (test code = 346) BILIRUBIN TOTAL 0.2 mg/dL 0.1-1.2 (BEAKER) (test code = 377) SODIUM (BEAKER) 143 meq/L 135-148 (test code = 381) POTASSIUM (BEAKER) 3.8 meq/L 3.6-5.5 (test code = 379) CHLORIDE (BEAKER) 107 meq/L 98-106 H (test code = 382) CO2 (BEAKER) (test 24 meq/L 20-29 code = 355) BLOOD UREA 6 mg/dL 10-26 L NITROGEN (BEAKER) (test code = 354) CREATININE 0.49 mg/dL 0.50-1.20 L (BEAKER) (test code = 358) GLUCOSE RANDOM 84 mg/dL 70-110 (BEAKER) (test code = 652) CALCIUM (BEAKER) 9.1 mg/dL 8.5-10.5 (test code = 697) AST (SGOT) 32 U/L 5-40 (BEAKER) (test code = 353) ALT (SGPT) 44 U/L 5-50 (BEAKER) (test code = 347) EGFR (BEAKER) 132 Interpretatio n of eGFR (test code = 1092) mL/min/1.[address] age Description sq m Result G1 Tyra l or high >=90 G2 Mildly decreased 60-89 G3a Mildl y to moderately 45-5 9 G3b Moderately to s everely 30-44 G4 Severl y decreased 15-29 G5 Kidney failure <15Reported eGF R is based on the CKD-EPI 2020 equation that d oes not use a race coefficientEsti mated GFR is not as accur ate as Creatinine Papi sandor in predicting glom erular filtration rate . Estimated GFR is not appl icable for dialysis patien ts Roll Icer ID - LITOOperator ID - LITOOperator ID - LITOOperator ID - LITOOperator ID - LITOOperator ID - LITOOperator ID - LITOOperator ID - LITOOperator ID - LITOOperator ID - LITOOperator ID - LITOOperator ID - LITOOperator ID - LITOOperator ID - LITOOperator ID - LITOOperator ID - [id number] 05:48:36 Test Item Value Reference Range Interpretation Comments MAGNESIUM (BEAKER) (test code = 1.6 mg/dL 1.5-3.0 627) Roll Icer ID - LITOOperator ID - LITOOperator ID - LITOOperator ID - LEYDI [id number] 05:45:32 Test Item Value Reference Range Interpretation Comments PHOSPHORUS (BEAKER) (test code = 3.6 mg/dL 2.5-4.5 604) Roll Icer ID - LITOCBC W/PLT COUNT & AUTO [id number] 05:15:57 Test Item Value Reference Range Interpretation Comments WHITE BLOOD CELL COUNT (BEAKER) 7.1 K/ L 4.0-10.0 (test code = 775) RED BLOOD CELL COUNT (BEAKER) 3.80 M/ L 4.20-5.80 L (test code = 761) HEMOGLOBIN (BEAKER) (test code = 10.6 GM/DL 13.0-16.8 L 410) HEMATOCRIT (BEAKER) (test code = 33.8 % 36.0-50.0 L 411) MEAN CORPUSCULAR VOLUME (BEAKER) 89 fL 82-99 (test code = 753) MEAN CORPUSCULAR HEMOGLOBIN 27.9 pg 27.0-33.0 (BEAKER) (test code = 751) MEAN CORPUSCULAR HEMOGLOBIN CONC 31.4 GM/DL 32.0-36.0 L (BEAKER) (test code = 752) RED CELL DISTRIBUTION WIDTH 15.1 % 12.0-15.0 H (BEAKER) (test code = 412) PLATELET COUNT (BEAKER) (test 450 K/CU MM 150-430 H code = 756) MEAN PLATELET VOLUME (BEAKER) 9.0 fL 6.0-11.5 (test code = 754) NUCLEATED RED BLOOD CELLS 0 /100 WBC 0-0 (BEAKER) (test code = 413) NEUTROPHILS RELATIVE PERCENT 58 % (BEAKER) (test code = 429) LYMPHOCYTES RELATIVE PERCENT 30 % (BEAKER) (test code = 430) MONOCYTES RELATIVE PERCENT 7 % (BEAKER) (test code = 431) EOSINOPHILS RELATIVE PERCENT 4 % (BEAKER) (test code = 432) BASOPHILS RELATIVE PERCENT 0 % (BEAKER) (test code = 437) NEUTROPHILS ABSOLUTE COUNT 4.06 K/ L 1.80-8.00 (BEAKER) (test code = 670) LYMPHOCYTES ABSOLUTE COUNT 2.12 K/ L 1.48-4.50 (BEAKER) (test code = 414) MONOCYTES ABSOLUTE COUNT (BEAKER) 0.52 K/ L 0.00-1.30 (test code = 415) EOSINOPHILS ABSOLUTE COUNT 0.30 K/ L 0.00-0.50 (BEAKER) (test code = 416) BASOPHILS ABSOLUTE COUNT (BEAKER) 0.03 K/ L 0.00-0.20 (test code = 417) IMMATURE GRANULOCYTES-RELATIVE 0.40 % 0.00-0.00 H PERCENT (BEAKER) (test code = 2801) BLOOD [id number] 06:01:35 Test Item Value Reference Range Interpretation Comments CULTURE (BEAKER) (test No growth in 5 days code = 1095) BLOOD [id number] 06:01:35 Test Item Value Reference Range Interpretation Comments CULTURE (BEAKER) (test No growth in 5 days code = 1095) RAD, CHEST, 1 VIEW, NON [id number] 11:45:00Reason for exam:->loculated effusionShould this be performed at the bedside?->Yes [facility] 1985 Sex: MFINAL REPORT Chest, 1 view, 04/19/2022 7:36 AM. History: Effusion. Comparison: 04/18/2022. Discussion: The cardiomediastinal silhouette and pulmonary vasculature are within normal limitsfor a portable exam. Bilateral hazy pulmonary opacities are unchanged. There is slightly increased right pleural effusion. Pneumothorax is no longer seen. The soft tissues and osseous structures are intact. IMPRESSION: Slightly increased right pleural effusion and resolution of pneumothorax. Signed: Derrick Hutton MDReport Verified Date/Time: 04/19/2022 11:45:09 RAD, CHEST, 1 VIEW, NON [id number] 13:38:00Reason for exam:->loculated effusionShould this be performed at the bedside?->Yes [facility] : 1985 Sex: MFINAL REPORT INDICATION: loculated effusion COMPARISON: 04/17/2022 TECHNIQUE: Singlefrontal view of the chest. FINDINGS: Lines, tubes, and devices: None.Lungs and pleura: Hazy airspaceopacities in the lower lungs bilaterally, which may represent atelectasis, pneumonia, or pulmonary edema. Small right lateral hydropneumothorax.Heart and mediastinum: Normal heart size. Unremarkable mediastinal contours.Osseous structures: No acute abnormality. Moderate rightward convexity of the thoracolumbar spine.Other: None. IMPRESSION: Small right lateral hydropneumothorax, with mildly decreasedpneumothorax component compared prior exam. Signed: Hayden Rosales Verified Date/Time: 2022 13:38:48 Reading Location: [address] Reading Room MAGNESIUM 2022-04-18 06:44:07 Test Item Value Reference Range Interpretation Comments MAGNESIUM (BEAKER) (test code = 1.5 mg/dL 1.6-2.6 L 627) Roll Icer ID - BSBASIC METABOLIC [id number] 06:44:06 Test Item Value Reference Range Interpretation Comments SODIUM (BEAKER) 138 meq/L 136-145 (test code = 381) POTASSIUM 3.4 meq/L 3.5-5.1 L (BEAKER) (test code = 379) CHLORIDE (BEAKER) 107 meq/L 98-107 (test code = 382) CO2 (BEAKER) 21 meq/L 22-29 L (test code = 355) BLOOD UREA 9 mg/dL 7-21 NITROGEN (BEAKER) (test code = 354) CREATININE 0.52 mg/dL 0.57-1.25 L (BEAKER) (test code = 358) GLUCOSE RANDOM 103 mg/dL 70-105 (BEAKER) (test code = 652) CALCIUM (BEAKER) 8.8 mg/dL 8.4-10.2 (test code = 697) EGFR (BEAKER) 130 Interpretatio n of eGFR (test code = mL/min/1.73 values Stage De scription 1092) sq m Result G1 Tyra l or high >=90 G2 Mildly decreased 60-89 G3a Mildl y to moderately 45-5 9 G3b Moderately to s everely 30-44 G4 Severl y decreased 15-29 G5 Kidne y failure <15Reported eGF R is based on the CKD-EPI 2020 equation that d oes not use a race coefficientEsti mated GFR is not as accur ate as Creatinine Papi sandor in predicting glom erular filtration rate . Estimated GFR is not appl icable for dialysis patien ts Roll Icer ID - BSRAD, CHEST, 1 VIEW, NON [id number] 12:09:00Reason for exam:- >loculated effusionShould this be performed at the bedside?->Yes [facility]AEL : 1985 Sex: MFINAL REPORT INDICATION: loculated effusion COMPARISON: 04/16/2022 TECHNIQUE: Single frontal view of the chest. FINDINGS: Lines, tubes, and devices: Right chest tube.Lungs and pleura: Hazy airspace opacities in the lower lungs bilaterally, which may represent atelectasis, pneumonia, or pulmonary edema. Small to moderate right pneumothoraxHeart and mediastinum: Normal heart size. Unremarkable mediastinal contours.Osseous structures: No acute abnormality. Moderate leftward convexity of the thoracolumbar spine.Other: None. IMPRESSION: Small to moderate right hydropneumothorax, with mildly increased pneumothorax component compared to prior exam. Right chest tube remains in place. Signed: Hayden Rosales MDReport Verified Date/Time: 04/17/2022 12:09:27 Reading Location: [address] Reading Room [id number] 07:02:46 Test Item Value Reference Range Interpretation Comments MAGNESIUM (BEAKER) (test code = 1.7 mg/dL 1.6-2.6 627) Roll Icer ID - MARCOBASIC METABOLIC [id number] 07:02:45 Test Item Value Reference Range Interpretation Comments SODIUM (BEAKER) 139 meq/L 136-145 (test code = 381) POTASSIUM 3.5 meq/L 3.5-5.1 (BEAKER) (test code = 379) CHLORIDE (BEAKER) 109 meq/L 98-107 H (test code = 382) CO2 (BEAKER) 20 meq/L 22-29 L (test code = 355) BLOOD UREA 9 mg/dL 7-21 NITROGEN (BEAKER) (test code = 354) CREATININE 0.49 mg/dL 0.57-1.25 L (BEAKER) (test code = 358) GLUCOSE RANDOM 91 mg/dL 70-105 (BEAKER) (test code = 652) CALCIUM (BEAKER) 8.4 mg/dL 8.4-10.2 (test code = 697) EGFR (BEAKER) 132 Interpretatio n of eGFR (test code = mL/min/1.73 values Stage De scription 1092) sq m Result G1 Tyra l or high >=90 G2 Mildly decreased 60-89 G3a Mildl y to moderately 45-5 9 G3b Moderately to s everely 30-44 G4 Severl y decreased 15-29 G5 Kidney failure <15Reported eGF R is based on the CKD-EPI 2020 equation that d oes not use a race coefficientEsti mated GFR is not as accur ate as Creatinine Papi pylece in predicting glom erular filtration rate . Estimated GFR is not appl icable for dialysis patien ts Roll Icer ID - MARCOCBC (HEMOGRAM ONLY)2022-04-17 06:33:41 Test Item Value Reference Range Interpretation Comments WHITE BLOOD CELL COUNT (BEAKER) 7.4 K/ L 3.5-10.5 (test code = 775) RED BLOOD CELL COUNT (BEAKER) 3.98 M/ L 4.63-6.08 L (test code = 761) HEMOGLOBIN (BEAKER) (test code = 10.8 GM/DL 13.7-17.5 L 410) HEMATOCRIT (BEAKER) (test code = 34.4 % 40.1-51.0 L 411) MEAN CORPUSCULAR VOLUME (BEAKER) 86 fL 79-92 (test code = 753) MEAN CORPUSCULAR HEMOGLOBIN 27.1 pg 25.7-32.2 (BEAKER) (test code = 751) MEAN CORPUSCULAR HEMOGLOBIN CONC 31.4 GM/DL 32.3-36.5 L (BEAKER) (test code = 752) RED CELL DISTRIBUTION WIDTH 13.5 % 11.6-14.4 (BEAKER) (test code = 412) PLATELET COUNT (BEAKER) (test 363 K/CU MM 150-450 code = 756) MEAN PLATELET VOLUME (BEAKER) 8.8 fL 9.4-12.4 L (test code = 754) NUCLEATED RED BLOOD CELLS 0 /100 WBC 0-0 (BEAKER) (test code = 413) RAD, CHEST, 1 VIEW, NON [id number] 14:15:00Reason for exam:->evaluate pneumothorax after clampShould this be performed at the bedside?->Yes [facility] : 1985 Sex: MFINAL REPORT RAD, CHEST, 1 VIEW, NON DEPT INDICATION: evaluate pneumothorax after clamp COMPARISON: 04/16/2022 TECHNIQUE: Portable frontal view of the chest. FINDINGS: Support Lines and Devices: Stable. Lungs and pleura: Unchanged airspace and pleural opacities. Small right lateral pneumothorax. Heart and mediastinum: Stable contours. Stable surgical changes. Additional findings: Moderate leftward convexity of the thoracolumbar spine. IMPRESSION: Small right-sided pneumothorax, similar to prior exam. Right chest tube remains in place. Signed: Hayden Rosales Verified Date/Time: 04/16/2022 14:15:07 Reading Location: [address] Reading Room RAD, CHEST, 1 VIEW, NON DEPT 2022-04-16 09:50:00Reason for exam:->loculated effusionShould this be performed at the bedside?->Yes [facility] : 1985 Sex: MFINAL REPORT Chest one view. Clinical history: loculated effusion Comparison: 04/15/2022 Discussion: A frontal chest is provided. Cardiomediastinal contours are unchanged. Right chest tube is in stable position. Patchy interstitial and airspace opacities in both lungs appear grossly unchanged. There is a small loculated right pneumothorax laterally, without interval change. Low lung volume. No large effusion. Signed: Val, Lore MDReport Verified Date/Time: 04/16/2022 09:50:51 Reading Location: [facility] B1 [id number] Ortho Consult Reading Room [id number] 06:20:13 Test Item Value Reference Range Interpretation Comments MAGNESIUM (BEAKER) (test code = 1.5 mg/dL 1.6-2.6 L 627) Roll Icer ID - MARCOBASIC METABOLIC [id number] 06:20:12 Test Item Value Reference Range Interpretation Comments SODIUM (BEAKER) 139 meq/L 136-145 (test code = 381) POTASSIUM 3.5 meq/L 3.5-5.1 (BEAKER) (test code = 379) CHLORIDE (BEAKER) 108 meq/L 98-107 H (test code = 382) CO2 (BEAKER) 22 meq/L 22-29 (test code = 355) BLOOD UREA 11 mg/dL 7-21 NITROGEN (BEAKER) (test code = 354) CREATININE 0.50 mg/dL 0.57-1.25 L (BEAKER) (test code = 358) GLUCOSE RANDOM 87 mg/dL 70-105 (BEAKER) (test code = 652) CALCIUM (BEAKER) 8.3 mg/dL 8.4-10.2 L (test code = 697) EGFR (BEAKER) 132 Interpretatio n of eGFR (test code = mL/min/1.73 values Stage De scription 1092) sq m Result G1 Tyra l or high >=90 G2 Mildly decreased 60-89 G3a Mildl y to moderately 45-5 9 G3b Moderately to s everely 30-44 G4 Severl y decreased 15-29 G5 Kidney failure <15Reported eGF R is based on the CKD-EPI 2020 equation that d oes not use a race coefficientEsti mated GFR is not as accur ate as Creatinine Papi patten in predicting glom erular filtration rate . Estimated GFR is not appl icable for dialysis patien ts Roll Icer ID - MARCOBLOOD [id number] 21:00:55 Test Item Value Reference Range Interpretation Comments CULTURE (BEAKER) (test No growth in 5 days code = 1095) The specimen volume collected for this blood culture was below the optimum (10 mL per bottle or 20 mL total). Use of lower volumes may adversely affect recovery and/or detection times of some organisms.BLOOD [id number] 21:00:54 Test Item Value Reference Range Interpretation Comments CULTURE (BEAKER) (test No growth in 5 days code = 1095) The specimen volume collected for this blood culture was below the optimum (10 mL per bottle or 20 mL total). Use of lower volumes may adversely affect recovery and/or detection times of some organisms.CT, CHEST, WITHOUT CONTRAST 2022-04-15 14:35:00Unlisted Reason for Exam - Click Yes and Enter Reason Below- >YesUnlisted Reason for Exam->F/u on loculated pleural effusion [facility] : 1985 Sex: MFINAL REPORT CT Chest without contrast History: Follow-up on loculated pleural effusion Comparison: 04/11/2022 Technique: serial axial imaging was performed without intravenous contrast as per departmental protocol. Multiplanar images are reconstructed and reviewed when indicated. This CT examination is performed using one or more of the following dose reduction techniques: Automated exposure control, adjustment of the mA and /or kV according to patient size, and/or use of iterative reconstruction technique. Findings:No mediastinal lymphadenopathy. No definite hilar enlargement. Normal size heart. No pericardial effusion. No thoracic aortic aneurysm. Normal caliber of main pulmonarytrunk. Patent central airways. The previous right loculated hydropneumothorax has further decreased in size. Right posterior pleural drain remains in place. Increasing airspace disease within the left lower lobe. Improving airspace disease within the right lower lobe. No significant findings in the partially imaged abdomen. No aggressive osseous lesion. Moderate levoscoliosis of the thoracic spine. Impression: 1. Interval decrease in size of previous small loculated right hydropneumothorax. Right posterior pleural drain remains in place.2. Increasing airspace disease within the left lower lobe may r elate to worsening pneumonia. Clinical correlation is required.3. Mild interval improvement in previous right lower lobe consolidation. Signed: Riley Nur Verified Date/Time: 04/15/2022 14:35:45 RAD, CHEST, 1 VIEW, NON [id number] 09:18:00Reason for exam:->loculated effusionShould this be performed at the bedside?->[facility] : 1985 Sex: MFINAL REPORT Exam: RAD, CHEST, 1 VIEW, NON DEPTDate: 04/15/2022 9:17 AM Indication:loculated effusionComparison: Chest radiograph from yesterday. IMPRESSION: Lines/Tubes:Right chest tube. Lungs and Pleura :Significantly decreased right pleural effusion. Hazy opacities are seen in both lower lung zones. Left midlung atelectasis. Heart/Mediastinum:Partially obscured, unchanged. Bones/Soft Tissues: No acute osseous abnormality. Upper abdomen: Unremarkable. Signed: Vinod Salgado Verified Date/Time: 04/15/2022 09:18:22 OMYCIN LEVEL, [id number] 08:03:39 Test Item Value Reference Range Interpretation Comments VANCOMYCIN TROUGH (BEAKER) (test 3.9 ug/mL 10.0-20.0 L code = 522) Roll Icer ID - KAMRANOLACTIC ACID, [id number] 05:37:12 Test Item Value Reference Range Interpretation Comments LACTATE BLOOD VENOUS (2) (BEAKER) 0.97 mmol/L 0.50-2.20 (test code = 2872) Roll Icer ID - [id number] 04:24:09 Test Item Value Reference Range Interpretation Comments MAGNESIUM (BEAKER) (test code = 1.6 mg/dL 1.6-2.6 627) Roll Icer ID - MARCOBASIC METABOLIC [id number] 04:24:08 Test Item Value Reference Range Interpretation Comments SODIUM (BEAKER) 137 meq/L 136-145 (test code = 381) POTASSIUM 4.0 meq/L 3.5-5.1 (BEAKER) (test code = 379) CHLORIDE (BEAKER) 106 meq/L 98-107 (test code = 382) CO2 (BEAKER) 19 meq/L 22-29 L (test code = 355) BLOOD UREA 12 mg/dL 7-21 NITROGEN (BEAKER) (test code = 354) CREATININE 0.59 mg/dL 0.57-1.25 (BEAKER) (test code = 358) GLUCOSE RANDOM 123 mg/dL 70-105 H (BEAKER) (test code = 652) CALCIUM (BEAKER) 9.1 mg/dL 8.4-10.2 (test code = 697) EGFR (BEAKER) 126 Interpretatio n of eGFR (test code = mL/min/1.73 values Stage De scription 1092) sq m Result G1 Tyra l or high >=90 G2 Mildly decreased 60-89 G3a Mildl y to moderately 45-5 9 G3b Moderately to s everely 30-44 G4 Severl y decreased 15-29 G5 Kidne y failure <15Reported eGF R is based on the CKD-EPI 2020 equation that d oes not use a race coefficientEsti mated GFR is not as accur ate as Creatinine Papi sandor in predicting glom erular filtration rate . Estimated GFR is not appl icable for dialysis patien ts Roll Icer ID - MARCOCBC (HEMOGRAM ONLY)2022-04-15 04:09:08 Test Item Value Reference Range Interpretation Comments WHITE BLOOD CELL COUNT (BEAKER) 19.1 K/ L 3.5-10.5 H (test code = 775) RED BLOOD CELL COUNT (BEAKER) 4.56 M/ L 4.63-6.08 L (test code = 761) HEMOGLOBIN (BEAKER) (test code = 12.8 GM/DL 13.7-17.5 L 410) HEMATOCRIT (BEAKER) (test code = 39.0 % 40.1-51.0 L 411) MEAN CORPUSCULAR VOLUME (BEAKER) 86 fL 79-92 (test code = 753) MEAN CORPUSCULAR HEMOGLOBIN 28.1 pg 25.7-32.2 (BEAKER) (test code = 751) MEAN CORPUSCULAR HEMOGLOBIN CONC 32.8 GM/DL 32.3-36.5 (BEAKER) (test code = 752) RED CELL DISTRIBUTION WIDTH 13.3 % 11.6-14.4 (BEAKER) (test code = 412) PLATELET COUNT (BEAKER) (test 361 K/CU MM 150-450 code = 756) MEAN PLATELET VOLUME (BEAKER) 8.6 fL 9.4-12.4 L (test code = 754) NUCLEATED RED BLOOD CELLS 0 /100 WBC 0-0 (BEAKER) (test code = 413) pH, body [id number] 03:04:07 Test Item Value Reference Range Interpretation Comments pH, Body Fluid 7.9 (test code = 2748-2) PH FLUID TYPE Body fluid Reference (test code = range:Reference 40470-6) ranges have not been established on thistype of flu id for this test. CHRISTINA (test code Performing Lab *PETE = CHRISTINA) [facility]/[place] [address] [place] [address] Tuyet Waldrop MD, PhD [facility] body [id number] 03:04:07 Test Item Value Reference Range Interpretation Comments pH, Body Fluid 7.9 (test code = 2748-2) PH FLUID TYPE Body fluid Reference (test code = range:Reference 42432-3) ranges have not been established on thistype of flu id for this test. CHRISTINA (test code Performing Lab *PETE = CHRISTINA) [facility]/[place] [address] [place] [address] Tuyet Waldrop MD, PhD [facility] gram [id number] 15:14:21 Test Item Value Reference Range Interpretation Comments Result (test code = 6463-4) No growth CHRISTINA (test code = CHRISTINA) [facility] + gram [id number] 15:14:21 Test Item Value Reference Range Interpretation Comments Result (test code = 6463-4) No growth CHRISTINA (test code = CHRISTINA) [facility] + GRAM [id number] 15:14:21 Test Item Value Reference Range Interpretation Comments CULTURE (BEAKER) (test code = 1095) No growth RAD, CHEST, 1 VIEW, NON [id number] 12:25:00Reason for exam:->Loculated EffusionShould this be performed at the bedside?->Yes [facility] : 1985 Sex: MFINAL REPORT Chest, one view HISTORY: Loculated effusion Comparison: 04/13/2022 Findings: Lungs: Stable bibasilar airspace disease, right greater than left. Heart: Normal in size. Pleura: Residual loculated right pleural effusion, without gross interval change. No pneumothorax is apparent. Bones: Unremarkable. Lines/tubes: Unchanged right chest tube. Signed: Riley Nur MDReport [place] ified Date/Time: 04/14/2022 12:25:14 [id number] 06:56:04 Test Item Value Reference Range Interpretation Comments MAGNESIUM (BEAKER) (test code = 1.6 mg/dL 1.6-2.6 627) Roll Icer ID - MALOU LBASIC METABOLIC [id number] 06:56:03 Test Item Value Reference Range Interpretation Comments SODIUM (BEAKER) 135 meq/L 136-145 L (test code = 381) POTASSIUM 3.8 meq/L 3.5-5.1 (BEAKER) (test code = 379) CHLORIDE (BEAKER) 106 meq/L 98-107 (test code = 382) CO2 (BEAKER) 19 meq/L 22-29 L (test code = 355) BLOOD UREA 12 mg/dL 7-21 NITROGEN (BEAKER) (test code = 354) CREATININE 0.56 mg/dL 0.57-1.25 L (BEAKER) (test code = 358) GLUCOSE RANDOM 101 mg/dL 70-105 (BEAKER) (test code = 652) CALCIUM (BEAKER) 8.5 mg/dL 8.4-10.2 (test code = 697) EGFR (BEAKER) 128 Interpretati on of eGFR (test code = mL/min/1.73 values Stage De scription 1092) sq m Result G1 Tyra l or high >=90 G2 Mildly decreased 60-89 G3a Mildl y to moderately 45-5 9 G3b Moderately to s everely 30-44 G4 Severl y decreased 15-29 G5 Kidney failure <15Reported eGF R is based on the CKD-EPI 2020 equation that d oes not use a race coefficientEsti mated GFR is not as accur ate as Creatinine Papi patten in predicting glom erular filtration rate . Estimated GFR is not appl icable for dialysis patien ts Roll Icer ID - MALOU LRAD, CHEST, 1 VIEW, NON [id number] 16:52:00Reason for exam:->loculated effusionShould this be performed at the bedside?->Yes [facility] : 1985 Sex: MFINAL REPORT Chest, 1 view. History: Loculated effusion. Comparison: 04/11/2022. Impression: Right-sided chest tube identified in stable position. Unchanged small right hydropneumothorax noted. There are stable appearing interstitial opacities present bilaterally with a lower lung zonepredominance. The cardiomediastinal silhouette is stable in appearance. No acute osseous abnormalityis identified. Signed: Jarett Arreola Verified Date/Time: 04/13/2022 16:52:34 Reading Location: [facility] Diagnostic Imaging Reading Room - [place] [address]. LACTATE DEHYDROGENASE (LDH)2022-04-13 15:47:53 Test Item Value Reference Range Interpretation Comments LACTATE DEHYDROGENASE (BEAKER) (test 183 U/L 125-220 code = 635) Roll Icer ID - HGMRSA [id number] 11:20:49 Test Item Value Reference Range Interpretation Comments CULTURE (BEAKER) (test code No MRSA isolated = 1095) TSH/FREE T4 IF [id number] 05:45:52 Test Item Value Reference Range Interpretation Comments THYROID STIMULATING HORMONE 0.461 uIU/mL 0.350-4.940 (BEAKER) (test code = 772) Roll Icer ID - [id number] 05:27:01 Test Item Value Reference Range Interpretation Comments MAGNESIUM (BEAKER) (test code = 1.8 mg/dL 1.6-2.6 627) Roll Icer ID - ADMINBASIC METABOLIC [id number] 05:27:00 Test Item Value Reference Range Interpretation Comments SODIUM (BEAKER) 139 meq/L 136-145 (test code = 381) POTASSIUM 4.3 meq/L 3.5-5.1 (BEAKER) (test code = 379) CHLORIDE (BEAKER) 107 meq/L 98-107 (test code = 382) CO2 (BEAKER) 22 meq/L 22-29 (test code = 355) BLOOD UREA 13 mg/dL 7-21 NITROGEN (BEAKER) (test code = 354) CREATININE 0.58 mg/dL 0.57-1.25 (BEAKER) (test code = 358) GLUCOSE RANDOM 103 mg/dL 70-105 (BEAKER) (test code = 652) CALCIUM (BEAKER) 9.1 mg/dL 8.4-10.2 (test code = 697) EGFR (BEAKER) 127 Interpretatio n of eGFR (test code = mL/min/1.73 values Stage De scription 1092) sq m Result G1 Tyra l or high >=90 G2 Mildly decreased 60-89 G3a Mildl y to moderately 45-5 9 G3b Moderately to s everely 30-44 G4 Severl y decreased 15-29 G5 Kidney failure <15Reported eGF R is based on the CKD-EPI 2020 equation that d oes not use a race coefficientEsti mated GFR is not as accur ate as Creatinine Papi sandor in predicting glom erular filtration rate . Estimated GFR is not appl icable for dialysis patien ts Roll Icer ID - ADMINCBC (HEMOGRAM ONLY)2022-04-13 04:51:59 Test Item Value Reference Range Interpretation Comments WHITE BLOOD CELL COUNT (BEAKER) 7.7 K/ L 3.5-10.5 (test code = 775) RED BLOOD CELL COUNT (BEAKER) 4.31 M/ L 4.63-6.08 L (test code = 761) HEMOGLOBIN (BEAKER) (test code = 12.2 GM/DL 13.7-17.5 L 410) HEMATOCRIT (BEAKER) (test code = 38.2 % 40.1-51.0 L 411) MEAN CORPUSCULAR VOLUME (BEAKER) 89 fL 79-92 (test code = 753) MEAN CORPUSCULAR HEMOGLOBIN 28.3 pg 25.7-32.2 (BEAKER) (test code = 751) MEAN CORPUSCULAR HEMOGLOBIN CONC 31.9 GM/DL 32.3-36.5 L (BEAKER) (test code = 752) RED CELL DISTRIBUTION WIDTH 13.6 % 11.6-14.4 (BEAKER) (test code = 412) PLATELET COUNT (BEAKER) (test 343 K/CU MM 150-450 code = 756) MEAN PLATELET VOLUME (BEAKER) 8.9 fL 9.4-12.4 L (test code = 754) NUCLEATED RED BLOOD CELLS 0 /100 WBC 0-0 (BEAKER) (test code = 413) HIGH SENSITIVITY TROPONIN [id number] 20:48:38 Test Item Value Reference Range Interpretation Comments HIGH SENSITIVITY < pg/ml See_Comment [Automated message] TROPONIN I (test code = The system which [id number]) generated this result transmitted ref erence range: <=35. Th e reference range was not used to interpr et this result as normal/abnormal . Roll Icer ID - BSThe LACE ROLLER STAT High Sensitivity Troponin-I results should be used in conjunctionwith other diagnostic information such as ECG, clinical observations and information, and patient symptoms to aid in the diagnosis of SC.RAD, ABDOMEN/KUB, 1 VIEW [id number] 09:50:00Reason for exam:->Abdominal distensionMI[facility] : 1985 Sex: MFINAL REPORT RAD, ABDOMEN/KUB, 1 VIEW AP CLINICAL INDICATION: Abdominal distension COMPARISON: None TECHNIQUE: Single, frontal radiograph of the abdomen. FINDINGS: The bowel gas pattern is nonspecific, but nonobstructive. Evaluation for free air is limited by portable supine technique. Within these limitations, no free air is identified. Signed: Justin Cramer MDReport Verified Date/Time: 04/12/2022 09:50:16 Reading Location: [address] Reading Room BASIC METABOLIC [id number] 06:44:34 Test Item Value Reference Range Interpretation Comments SODIUM (BEAKER) 135 meq/L 136-145 L (test code = 381) POTASSIUM 4.2 meq/L 3.5-5.1 (BEAKER) (test code = 379) CHLORIDE (BEAKER) 104 meq/L 98-107 (test code = 382) CO2 (BEAKER) 22 meq/L 22-29 (test code = 355) BLOOD UREA 13 mg/dL 7-21 NITROGEN (BEAKER) (test code = 354) CREATININE 0.65 mg/dL 0.57-1.25 (BEAKER) (test code = 358) GLUCOSE RANDOM 98 mg/dL 70-105 (BEAKER) (test code = 652) CALCIUM (BEAKER) 9.4 mg/dL 8.4-10.2 (test code = 697) EGFR (BEAKER) 123 Interpretatio n of eGFR (test code = mL/min/1.73 values Stage De scription 1092) sq m Result G1 Tyra l or high >=90 G2 Mildly decreased 60-89 G3a Mildl y to moderately 45-5 9 G3b Moderately to s everely 30-44 G4 Severl y decreased 15-29 G5 Kidney failure <15Reported eGF R is based on the CKD-EPI 2020 equation that d oes not use a race coefficientEsti mated GFR is not as accur ate as Creatinine Papi sandor in predicting glom erular filtration rate . Estimated GFR is not appl icable for dialysis patien ts Roll Icer ID - [id number] 06:44:34 Test Item Value Reference Range Interpretation Comments MAGNESIUM (BEAKER) (test code = 1.9 mg/dL 1.6-2.6 627) Roll Icer ID - KAMRANOVANCOMYCIN LEVEL, [id number] 06:35:29 Test Item Value Reference Range Interpretation Comments VANCOMYCIN TROUGH (BEAKER) (test 24.0 ug/mL 10.0-20.0 H code = 522) Roll Icer ID - KAMRANOCT, CHEST, WITHOUT [id number] 16:06:00Evaluation for complex pleural effusion and pockets. S/p chest tube insertion in the setting of pneumonia and effusionUnlisted Reason for Exam - Click Yes and Enter Reason Below->No[facility] : 1985 Sex: MFINAL REPORT CT of the Chest dated 04/11/2022 CLINICAL INFORMATION: Pneumonia, unresolvedRespiratory failure Comment: Axial images of the chest were obtained from thoracic inlet to the upper abdomen without intravenous contrast. This exam was performed according to our departmental dose-optimization program, which includes automated exposure control, adjustment of the mA and/or kV accor ding to patient size and/or use of interactive reconstruction technique. Heart is normal in size. Great vessels are unremarkable. No adenopathy in the mediastinum or perihilar region. Trachea and mainstem bronchi are patent. Loculated hydropneumothorax is seen in the right pleural space. A pigtail right chest tubes present. Airspace disease is seen in the right lower lobe suspicious for pneumonia. Subsegmental atelectasis is seen in the right upper and left lower lobes. Nonspecific groundglass pulmonary parenchyma disease is seen in the left upper and left lower lobes. Visualized upper abdomen demonstrates no focal lesion. Impression: 1. Loculated right hydropneumothorax.2. Airspace disease in theright lower lobe and groundglass pulmonary parenchyma disease in the left upper and left lower lobe suggestive infectious process. Signed: Velvet Lealeport Verified Date/Time: 04/11/2022 16:06:10 Lactate dehydrogenase (LDH), body fluid 2022-04-11 15:56:15 Test Item Value Reference Range Interpretation Comments LDH, Fluid (test 240 U/L code = 39993-5) CHRISTINA (test code = Absence of reference CHRISTINA) range indicates that normals have not been defined.Assay performance has not been validated for this type of specimen. Roll Icer ID - [id number] [facility] HospitalLactate dehydrogenase (LDH), body [id number] 15:56:15 Test Item Value Reference Range Interpretation Comments LDH, Fluid (test 240 U/L code = 95467-7) CHRISTINA (test code = Absence of reference CHRISTINA) range indicates that normals have not been defined.Assay performance has not been validated for this type of specimen. Roll Icer ID - [id number] [facility] HospitalLACTATE DEHYDROGENASE (LDH), BODY [id number] 15:56:15 Test Item Value Reference Range Interpretation Comments LACTATE DEHYDROGENASE FLUID (BEAKER) 240 U/L (test code = 634) Absence of reference range indicates that normals have not been defined.Assay performance has not been validated for this type of specimen.Roll Icer ID - [id number], body [id number] 15:52:29 Test Item Value Reference Range Interpretation Comments Glucose, Body Fluid 76 mg/dL (test code = 2344-0) CHRISTINA (test code = Absence of reference CHRISTINA) range indicates that normals have not been defined.Assay performance has not been validated for this type of specimen. Roll Icer ID - [id number] [facility] [id number] 15:52:29 Test Item Value Reference Range Interpretation Comments Glucose, Body Fluid 76 mg/dL (test code = 2344-0) CHRISTINA (test code = Absence of reference CHRISTINA) range indicates that normals have not been defined.Assay performance has not been validated for this type of specimen. Roll Icer ID - [id number] [facility], BODY [id number] 15:52:29 Test Item Value Reference Range Interpretation Comments GLUCOSE, BODY FLUID (BEAKER) (test 76 mg/dL code = 1528) Absence of reference range indicates that normals have not been defined.Assay performance has not been validated for this type of specimen.Roll Icer ID - [id number] fluid cell count with [id number] 13:33:07 Test Item Value Reference Range Interpretation Comments Appearance (test code = Hazy Clear A 9335-1) Color (test code = Yellow Colorless, Straw A 6824-7) RBCs (test code = 6000 See_Comment H [Automate d message] 26098-0) The system [employer] generated this result transmit claudio reference range : <=1 /cu mm. The reference range was not used to interpret this result as normal/abnormal . Adjusted WBC Count 62 See_Comment H [Automat ed message] (test code = 48148-0) The sy stem which generated this result transmit claudio reference range : <=5 /cu mm. The reference range was not used to interpret this result as normal/abnormal . Adjusted lining 0 See_Comment [Automated message] cells/Others (test code The system which = 53072-3) generated this result transmit claudio reference range : <=1 /cu mm. The reference range was not used to interpret this result as normal/abnormal . % Segs (test code = 9 % 48693-5) % Lymphs (test code = 63 % 52080-5) % Monos (test code = 23 % 79177-0) % Eos (test code = 3 % 33737-8) % Baso (test code = 2 % 95605-5) Container Body Fluid EDTA Tube (test code = 2873) Lab Interpretation Abnormal (test code = 11878-3) [facility] count with [id number] 13:33:07 Test Item Value Reference Range Interpretation Comments Appearance (test code = Hazy Clear A 9335-1) Color (test code = Yellow Colorless, Straw A 6824-7) RBCs (test code = 6000 See_Comment H [Automate d message] 04355-5) The system [employer] generated this result transmit claudio reference range : <=1 /cu mm. The reference range was not used to interpret this result as normal/abnormal . Adjusted WBC Count 62 See_Comment H [Automat ed message] (test code = 92481-8) The sy stem which generated this result transmit claudio reference range : <=5 /cu mm. The reference range was not used to interpret this result as normal/abnormal . Adjusted lining 0 See_Comment [Automated message] cells/Others (test code The system which = 80481-9) generated this result transmit claudio reference range : <=1 /cu mm. The reference range was not used to interpret this result as normal/abnormal . % Segs (test code = 9 % 84001-1) % Lymphs (test code = 63 % 10405-8) % Monos (test code = 23 % 28119-3) % Eos (test code = 3 % 53735-3) % Baso (test code = 2 % 73946-5) Container Body Fluid EDTA Tube (test code = 2873) Lab Interpretation Abnormal (test code = 14293-8) [facility]UID [facility] COUNT WITH [id number] 13:33:07 Test Item Value Reference Range Interpretation Comments APPEARANCE FLUID Hazy Clear A (BEAKER) (test code = 510) COLOR FLUID (BEAKER) Yellow Colorless, Straw A (test code = 511) RBC FLUID (BEAKER) 6000 /cu mm See_Comment H [Automat ed message] (test code = 513) The system which generated this result transmit claudio reference range : <=1. The refere nce range was not u sed to interpret th is result as normal/abnormal . ADJUSTED WBC FLUID 62 /cu mm See_Comment H [Automat ed message] (BEAKER) (test code = The sy stem which 1691) generated this result transmit claudio reference range : <=5. The refere nce range was not u sed to interpret th is result as normal/abnormal . LINING CELLS (BEAKER) 0 /cu mm See_Comment [Auto mated message] (test code = 1590) The syste m which generated this result transmit claudio reference range : <=1. The refere nce range was not u sed to interpret th is result as normal/abnormal . NEUTROPHILS FLUID 9 % (BEAKER) (test code = 1656) LYMPHS FLUID (BEAKER) 63 % (test code = 488) MONO/MACROPHAGE FLUID 23 % (BEAKER) (test code = 489) EOSINOPHILS FLUID 3 % (BEAKER) (test code = 491) BASO FLUID (BEAKER) 2 % (test code = 492) CONTAINER BODY FLUID EDTA Tube (BEAKER) (test code = 2873) COMPREHENSIVE METABOLIC [id number] 12:56:04 Test Item Value Reference Range Interpretation Comments GLUCOSE (test code = See_Comment [Autom ated message] 2345-7) The system [employer] generated this result transmitted ref erence range: 70 - 99 MG/DL. The reference r subhash was not used to interpret this result as normal/abnor mal. BLOOD UREA NITROGEN See_Comment [Automa claudio message] (test code = 3091-6) The s tem which generated this result transmitted ref erence range: 6 - 20 M G/DL. The reference r subhash was not used to interpret this result as normal/abnor mal. CREATININE (test code = See_Comment L [Au tomated message] 2160-0) The system [employer] generated this result transmitted ref erence range: 0.80 - 1 .40 MG/DL. The refe rence range was not u sed to interpret this result as normal/abnor mal. EGFR (test code = See_Comment [Automate d message] 46672-0) The system [employer] generated this result transmitted ref erence range: >60 ML/MIN/1.73. Th e reference range was not used to int erpret this result as normal/abnormal . BUN/CREAT RATIO (test See_Comment [Auto mated message] code = 3097-3) The system [facility] generated this result transmitted ref erence range: 6 - 28 R ATIO. The reference r subhash was not used to interpret this result as normal/abnor mal. SODIUM (test code = See_Comment [Automa claudio message] 2951-2) The system [employer] generated this result transmitted ref erence range: 133 - 14 6 MEQ/L. The refe rence range was not u sed to interpret this result as normal/abnor mal. POTASSIUM (test code = See_Comment [Aut omated message] 2483-3) The system [employer] generated this result transmitted ref erence range: 3.5 - 5. 4 MEQ/L. The refe rence range was not u sed to interpret this result as normal/abnor mal. CHLORIDE (test code = See_Comment [Auto mated message] 1835-0) The system [employer] generated this result transmitted ref erence range: 95 - 107 MEQ/L. The reference r subhash was not used to interpret this result as normal/abnor mal. CO2 (test code = See_Comment [Automated message] 1962-8) The system [employer] generated this result transmitted ref erence range: 19 - 31 MEQ/L. The reference r subhash was not used to interpret this result as normal/abnor mal. CALCIUM (test code = See_Comment [Autom ated message] 29595-7) The system [facility] generated this result transmitted ref erence range: 8.5 - 10 .5 MG/DL. The refe rence range was not u sed to interpret this result as normal/abnor mal. PROTEIN TOTAL (test See_Comment [Automa claudio message] code = 2885-2) The system [facility] generated this result transmitted ref erence range: 6.1 - 8. 3 G/DL. The reference r subhash was not used to interpret this result as normal/abnor mal. ALBUMIN (test code = See_Comment [Autom ated message] 59041-5) The system [facility] generated this result transmitted ref erence range: 3.5 - 5. 2 G/DL. The reference r subhash was not used to interpret this result as normal/abnor mal. GLOBULINS, SERUM, TOTAL See_Comment H [Au tomated message] (test code = 34951-6) The sy stem which generated this result transmitted ref erence range: 1.9 - 3. 7 G/DL. The reference r subhash was not used to interpret this result as normal/abnor mal. A/G RATIO (test code = See_Comment L [Aut omated message] 1759-0) The system [facility] generated this result transmitted ref erence range: 1.0 - 2. 6 RATIO. The refe rence range was not u sed to interpret this result as normal/abnor mal. BILIRUBIN TOTAL (test <0.2 See_Comment [Auto mated message] code = 1975-2) The system [facility] generated this result transmitted ref erence range: <=1.2 MG /DL. The reference r subhash was not used to interpret this result as normal/abnor mal. ALKALINE PHOSPHATASE 148 U/L 40-117 H (test code = 6768-6) AST (SGOT) (test code = 19 U/L 9-50 1920-8) ALT (SGPT) (test code = 26 U/L 5-50 Unl ess Otherwise 1744-2) Indicated, All Testing Performed At: [facility], [address] [place] [address] Laborator y Director: Nathaniel Andres M.D. CLIA Number [id number] [place]. [id number] Lab Interpretation Abnormal (test code = 95425-9) [facility]+%[id number] 12:56:04 Test Item Value Reference Range Interpretation Comments IRON (test code = See_Comment L [Automate d message] 2498-4) The system [employer] generated this result transmitted ref erence range: 59 - 158 UG/DL. The reference r subhash was not used to interpret this result as normal/abnor mal. UIBC (test code = See_Comment [Automate d message] 7331-5) The system [employer] generated this result transmitted ref erence range: 112 - 34 7 UG/DL. The refe rence range was not u sed to interpret this result as normal/abnor mal. TIBC (test code = See_Comment L [Automate d message] 16963-7) The system [employer] generated this result transmitted ref erence range: 250 - 45 0 UG/DL. The refe rence range was not u sed to interpret this result as normal/abnor mal. IRON SATURATION % (test 7 % 20-50 L Unl ess Otherwise code = 2502-3) Indicated, Al l Testing Performed At: C [facility], [address] [place] [address] Laborator y Director: Nathaniel Andres M.D. CLIA Number [id number] [place] o. [id number] Lab Interpretation Abnormal (test code = 75293-0) [facility] 25 [id number] 12:50:49 Test Item Value Reference Range Interpretation Comments VITAMIN D 25-HYDROXY SEE BELOW NG/ML NOT E: 25-HYDROXYVITAMIN D (test code = 1988-06) ASSAY I NCLUDES 25-HYDROXYVITAM IN D2 AND D3. METHODOLOGY IS CHEMILUMINESCEN T IMMUNOASSAY. $$ $$$ INTERPRETIVE RA NGES $$$$$PEDIATRIC (<17 YEARS) . . . . . . . . . . . NG/ML 20-100ADULT: IN SUFFICIENT . . . . . . . . . . . . . . NG/ML <20 SUBOP TIMAL . . . . . . . . . . . . . . . NG/ML 20-29 OPTIMAL . . . . . . . . . . . . . . . . . NG/ML 30-100 Unless O therwise Indicated, All Testing Performed At: [facility], [address] [place] [address], [place] [address] Laboratory Dire ctor: Nathaniel Andres M.D. CLIA Number [id number] [place]. [id number] [facility]RAD, [facility], 1 VIEW, NON [id number] 11:23:00Reason for exam:->Post Chest Tube placementShould this be performed at the bedside?->YesMI[facility]BIAS : 1985 Sex: MFINAL REPORT RAD, CHEST, 1 VIEW, NON DEPT INDICATION: Post Chest Tube placement COMPARISON: Prior day's exam FINDINGS: Portable frontal view of the chest. IMPRESSION: Support Lines: Right chest tube Lungs and pleura: Bilateral airspace opacities, unchanged. Small right apical pneumothorax. Heart and mediastinum: Stable contours. Stable surgical changes. Additional findings: None. Signed: Justin Cramer MDReport Verified Date/Time: 04/11/2022 11:23:04 Reading Location: [address] Reading Room LACTATE DEHYDROGENASE (LDH) 2022-04-11 11:08:29 Test Item Value Reference Range Interpretation Comments LACTATE DEHYDROGENASE (BEAKER) (test 316 U/L 125-220 H code = 635) Roll Icer ID - POLLY GPROTEIN, [id number] 11:08:28 Test Item Value Reference Range Interpretation Comments TOTAL PROTEIN (BEAKER) (test code = 7.4 gm/dL 6.0-8.3 770) Roll Icer ID - POLLY GCBC W/AUTO DIFF WITH [id number] 09:27:48 Test Item Value Reference Range Interpretation Comments WHITE BLOOD CELL COUNT See_Comment [Aut omated message] (test code = 53536-0) The sy stem which generated this result transmitted ref erence range: 3.5 - 11 .0 K/UL. The refer ence range was not u sed to interpret this result as normal/abnor mal. RED BLOOD CELL COUNT See_Comment L [Autom ated message] (test code = 73826-4) The sy stem which generated this result transmitted ref erence range: 4.50 - 6 .10 M/UL. The refer ence range was not u sed to interpret this result as normal/abnor mal. HEMOGLOBIN (test code = See_Comment L [Au tomated message] 718-7) The system [employer] generated this result transmitted ref erence range: 13.5 - 1 7.0 G/DL. The refer ence range was not u sed to interpret this result as normal/abnor mal. HEMATOCRIT (test code = 36.6 % 40.0-51.0 L 30108-0) MEAN CORPUSCULAR VOLUME 84.7 fL 80.0-99.0 (test code = 98023-5) MEAN CORPUSCULAR 27.5 PG 25.0-33.0 HEMOGLOBIN (test code = 93561-0) MEAN CORPUSCULAR See_Comment [Automated message] HEMOGLOBIN CONC (test The sy stem which code = 94208-2) generated th is result transmitted ref erence range: 31.0 - 3 6.0 G/DL. The refer ence range was not u sed to interpret this result as normal/abnor mal. RED CELL DISTRIBUTION 12.8 % 11.5-15.0 WIDTH (test code = 41147-9) NEUTROPHILS % (test code 65.8 % = 98996-4) LYMPHOCYTES % (test code 21.3 % = 26342-9) MONOCYTES % (test code = 9.0 % 16497-9) EOSINOPHILS % (test code 2.9 % = 27015-2) BASOPHILS % (test code = 0.5 % 38957-2) IMMATURE GRANULOCYTES 0.5 % (test code = 41053-7) NUCLEATED RBC'S See_Comment Unless Othe rwise MYELOPEROX STAIN (test Indic ated, All code = 60525-8) Testing Perf ormed At: [facility], [address] [place] [address] Laborator y Director: Alva SummersIA Number [id number] [place] o. [id number] [Autom ated message] The sy stem which generated this result transmit claudio reference range : 0.00 - 0.11 K/UL. Th e reference range was not used to int erpret this result as normal/abnormal . PLATELET COUNT (test See_Comment H [Autom ated message] code = 09241-3) The system w hich generated this result transmitted ref erence range: 130 - 40 0 K/UL. The refer ence range was not u sed to interpret this result as normal/abnor mal. NEUTROPHILS ABSOLUTE See_Comment [Autom ated message] COUNT (test code = The syste m which 24667-7) generated this result transmitted ref erence range: 1.50 - 7 .50 K/UL. The refer ence range was not u sed to interpret this result as normal/abnor mal. LYMPHOCYTES ABSOLUTE See_Comment [Autom ated message] COUNT (test code = The syste m which 10830-0) generated this result transmitted ref erence range: 1.00 - 4 .00 K/UL. The refer ence range was not u sed to interpret this result as normal/abnor mal. MONOCYTES ABSOLUTE COUNT See_Comment [A utomated message] (test code = 62348-7) The sy stem which generated this result transmitted ref erence range: 0.20 - 1 .00 K/UL. The refer ence range was not u sed to interpret this result as normal/abnor mal. BASOPHILS ABSOLUTE COUNT See_Comment [A utomated message] (test code = 32131-9) The sy stem which generated this result transmitted ref erence range: 0.00 - 0 .20 K/UL. The refer ence range was not u sed to interpret this result as normal/abnor mal. IMMATURE GRANS (ABS) See_Comment [Autom ated message] (test code = 9987) The syste m which generated this result transmitted ref erence range: 0.00 - 0 .10 K/UL. The refer ence range was not u sed to interpret this result as normal/abnor mal. Lab Interpretation (test Abnormal code = 46813-0) [facility] [id number] 06:43:31 Test Item Value Reference Range Interpretation Comments PROCALCITONIN (BEAKER) (test code = < ng/mL <0.05 3036) SEPSIS RISK (ng/mL)Low: 0.05-0.50Intermediate: 0.51-2.00High: >=2.01 [id number] 06:33:40 Test Item Value Reference Range Interpretation Comments PHOSPHORUS (BEAKER) (test code = 3.7 mg/dL 2.3-4.7 604) Roll Icer ID - POLLY GBASIC METABOLIC [id number] 06:33:39 Test Item Value Reference Range Interpretation Comments SODIUM (BEAKER) 140 meq/L 136-145 (test code = 381) POTASSIUM 3.8 meq/L 3.5-5.1 (BEAKER) (test code = 379) CHLORIDE (BEAKER) 106 meq/L 98-107 (test code = 382) CO2 (BEAKER) 23 meq/L 22-29 (test code = 355) BLOOD UREA 10 mg/dL 7-21 NITROGEN (BEAKER) (test code = 354) CREATININE 0.57 mg/dL 0.57-1.25 (BEAKER) (test code = 358) GLUCOSE RANDOM 87 mg/dL 70-105 (BEAKER) (test code = 652) CALCIUM (BEAKER) 9.4 mg/dL 8.4-10.2 (test code = 697) EGFR (BEAKER) 127 Interpretatio n of eGFR (test code = mL/min/1.73 values Stage De scription 1092) sq m Result G1 Tyra l or high >=90 G2 Mildly decreased 60-89 G3a Mildl y to moderately 45-5 9 G3b Moderately to s everely 30-44 G4 Severl y decreased 15-29 G5 Kidney failure <15Reported eGF R is based on the CKD-EPI 2020 equation that d oes not use a race coefficientEsti mated GFR is not as accur ate as Creatinine Papi sandor in predicting glom erular filtration rate . Estimated GFR is not appl icable for dialysis patien ts Roll Icer ID - POLLY [id number] 06:33:39 Test Item Value Reference Range Interpretation Comments MAGNESIUM (BEAKER) (test code = 1.9 mg/dL 1.6-2.6 627) Roll Icer ID - POLLY GCBC W/PLT COUNT & AUTO [id number] 05:58:29 Test Item Value Reference Range Interpretation Comments WHITE BLOOD CELL COUNT (BEAKER) 6.9 K/ L 3.5-10.5 (test code = 775) RED BLOOD CELL COUNT (BEAKER) 4.32 M/ L 4.63-6.08 L (test code = 761) HEMOGLOBIN (BEAKER) (test code = 12.0 GM/DL 13.7-17.5 L 410) HEMATOCRIT (BEAKER) (test code = 38.4 % 40.1-51.0 L 411) MEAN CORPUSCULAR VOLUME (BEAKER) 89 fL 79-92 (test code = 753) MEAN CORPUSCULAR HEMOGLOBIN 27.8 pg 25.7-32.2 (BEAKER) (test code = 751) MEAN CORPUSCULAR HEMOGLOBIN CONC 31.3 GM/DL 32.3-36.5 L (BEAKER) (test code = 752) RED CELL DISTRIBUTION WIDTH 12.9 % 11.6-14.4 (BEAKER) (test code = 412) PLATELET COUNT (BEAKER) (test 383 K/CU MM 150-450 code = 756) MEAN PLATELET VOLUME (BEAKER) 8.6 fL 9.4-12.4 L (test code = 754) NUCLEATED RED BLOOD CELLS 0 /100 WBC 0-0 (BEAKER) (test code = 413) NEUTROPHILS RELATIVE PERCENT 54 % (BEAKER) (test code = 429) LYMPHOCYTES RELATIVE PERCENT 30 % (BEAKER) (test code = 430) MONOCYTES RELATIVE PERCENT 10 % (BEAKER) (test code = 431) EOSINOPHILS RELATIVE PERCENT 6 % (BEAKER) (test code = 432) BASOPHILS RELATIVE PERCENT 1 % (BEAKER) (test code = 437) NEUTROPHILS ABSOLUTE COUNT 3.71 K/ L 1.78-5.38 (BEAKER) (test code = 670) LYMPHOCYTES ABSOLUTE COUNT 2.03 K/ L 1.32-3.57 (BEAKER) (test code = 414) MONOCYTES ABSOLUTE COUNT (BEAKER) 0.66 K/ L 0.30-0.82 (test code = 415) EOSINOPHILS ABSOLUTE COUNT 0.40 K/ L 0.04-0.54 (BEAKER) (test code = 416) BASOPHILS ABSOLUTE COUNT (BEAKER) 0.04 K/ L 0.01-0.08 (test code = 417) IMMATURE GRANULOCYTES-RELATIVE 0.40 % 0.00-1.00 PERCENT (BEAKER) (test code = 2801) SARS-CoV2/Influenza/RSV RT-PCR (Symptomatic ONLY)2022-04-10 22:55:37 Test Item Value Reference Interpretation Comments Range SARS-COV2/RT-PCR Negative Negative The SARS-Co V-2 (test code = target nucleic 61696-5) acids are not detected in thi s specimen. Negat jeison results do not preclude SARS-C oV-2 infection and should not be u sed as the sole bas is for patient management decisions. Nega tive results must be combined with clinical observations, patient history , and epidemiolog ical information. A false negative result may occu r if a specimen is improperly collected, transported or handled. This S ARS CoV-2 test is a rapid, real-francisco e RT-PCR test intended for e qualitative detection of nucleic acid fr om SARS-CoV-2 in a nasopharyngeal swab specimen [facility] from individual s suspected of COVID-19 by the healthcare provider. Influenza A RT-PCR Negative Negative The Flu A target (test code = [place] [address]-5) not detected in this specimen. Influenza B RT-PCR Negative Negative The Flu B target (test code = [place] 13247-7) not detected in this specimen. RSV by RT-PCR (test Negative Negative The RSV target code = 95385-2) nucleic acid s are not detected in this specimen. CHRISTINA (test code = The presence of CHRISTINA) SARS-CoV-2/FLU/RSV viral nucleic acids cannot rule out co-infections or disease caused by other viral or bacterial pathogens. As with any molecular test, mutations within the target regions of the Xpert Xpress SARS-CoV-2/Flu/RSV test could affect primer and/or probe binding resulting in failure to detect the presence of virus or the virus being detected less predictably. False negative results may occur if the virus is present at levels below the analytical limit of detection in this specimen. This Xpert Xpress SARS-CoV-2/Flu/RSV test is a rapid, real-time RT-PCR test intended for the qualitative detection of nucleic acid from Xpert Xpress SARS-CoV-2/Flu/RSV in a nasopharyngeal swab specimen collected from individuals suspected of Xpert Xpress SARS-CoV-2/Flu/RSV by their healthcare provider. Results from antolin Xpert Xpress SARS-CoV-2/Flu/RSV test should be correlated with the clinical history, epidemiological data, and other data available to the clinician evaluating the patient. Viral nucleic acid may persist in vivo, independent of virus viability. Detection of analyte target(s) does not imply that the corresponding virus(es) are infectious or are the causative agents for clinical symptoms. This test has not been Food and Drug Administration (FDA) cleared or approved and has been authorized by FDA under an Emergency Use Authorization (EUA). This EUA will be effective until the declaration that circumstances exist justifying the authorization of the emergency use of in vitro diagnostic tests for detection and/or diagnosis of COVID-19 is terminated under Section 564(b)(2) of the Act or the EUA is revoked under Section 564(g) of the Act. Fact Sheet for Healthcare Providers:https://[employer]/Docu ments/Xpert%20Xpres s%20SARS%20CoV-2/Fa ct%20Sheets/302-390 2%34TMAO-DOW-9%20HE ALTHCARE%20PROVIDER S%20FACT%20SHEET.pd f Fact Sheet for Healthcare Patients:https://[employer]/Docum ents/Xpert%20Xpress %20SARS%20Cov-2/Fac t%20Sheets/302-3801 %98JFFX-ANS-7%20PAT IENT%20FACT%20SHEET .pdf Lab Interpretation Normal (test code = 51106-0) [facility] (Symptomatic ONLY) 2022-04-10 22:55:37 Test Item Value Reference Interpretation Comments Range SARS-COV2/RT-PCR Negative Negative The SARS-Co V-2 (test code = target nucleic 02061-1) acids are not detected in thi s specimen. Negat jeison results do not preclude SARS-C oV-2 infection and should not be u sed as the sole bas is for patient management decisions. Nega tive results must be combined with clinical observations, patient history , and epidemiolog ical information. A false negative result may occu r if a specimen is improperly collected, transported or handled. This S ARS CoV-2 test is a rapid, real-francisco e RT-PCR test intended for e qualitative detection of nucleic acid fr om SARS-CoV-2 in a nasopharyngeal swab specimen collec claudio from individual s suspected of COVID-19 by the healthcare provider. Influenza A RT-PCR Negative Negative The Flu A target (test code = [place] [address]-2) not detected in this specimen. Influenza B RT-PCR Negative Negative The Flu B target (test code = [place] 34584-2) not detected in this specimen. RSV by RT-PCR (test Negative Negative The RSV target code = 20296-3) nucleic acid s are not detected in this specimen. CHRISTINA (test code = The presence of CHRISTINA) SARS-CoV-2/FLU/RSV viral nucleic acids cannot rule out co-infections or disease caused by other viral or bacterial pathogens. As with any molecular test, mutations within the target regions of the Xpert Xpress SARS-CoV-2/Flu/RSV test could affect primer and/or probe binding resulting in failure to detect the presence of virus or the virus being detected less predictably. False negative results may occur if the virus is present at levels below the analytical limit of detection in this specimen. This Xpert Xpress SARS-CoV-2/Flu/RSV test is a rapid, real-time RT-PCR test intended for the qualitative detection of nucleic acid from Xpert Xpress SARS-CoV-2/Flu/RSV in a nasopharyngeal swab specimen collected from individuals suspected of Xpert Xpress SARS-CoV-2/Flu/RSV by their healthcare provider. Results from [facility] Xpert Xpress SARS-CoV-2/Flu/RSV test should be correlated with the clinical history, epidemiological data, and other data available to the clinician evaluating the patient. Viral nucleic acid may persist in vivo, independent of virus viability. Detection of analyte target(s) does not imply that the corresponding virus(es) are infectious or are the causative agents for clinical symptoms. This test has not been Food and Drug Administration (FDA) cleared or approved and has been authorized by FDA under an Emergency Use Authorization (EUA). This EUA will be effective until the declaration that circumstances exist justifying the authorization of the emergency use of in vitro diagnostic tests for detection and/or diagnosis of COVID-19 is terminated under Section 564(b)(2) of the Act or the EUA is revoked under Section 564(g) of the Act. Fact Sheet for Healthcare Providers:https://Peerform/Docu ments/Xpert%20Xpres s%20SARS%20CoV-2/Fa ct%20Sheets/302-390 2%06BBTB-LXH-0%20HE ALTHCARE%20PROVIDER S%20FACT%20SHEET.pd f Fact Sheet for Healthcare Patients:https://hoccer/Docum ents/Xpert%20Xpress %20SARS%20Cov-2/Fac t%20Sheets/302-3801 %52GWGB-QZM-9%20PAT IENT%20FACT%20SHEET .pdf Lab Interpretation Normal (test code = 04881-8) [facility] [id number] 22:55:37 Test Item Value Reference Range Interpretation Comments SARS-COV2/RT-PCR Negative Negative The SARS-Co V-2 target (test code = nucleic acids a re not 5828520) detected in thi s specimen. Negat jeison results do not preclude SARS-CoV-2 infe ction and should not be u sed as the sole basis for patient management deci sions. Negative result s must be combined with c linical observations, p atient history, and epidemiological information. A false negative result may occur if a specimen i s improperly raudel ected, transported or handled. This SARS CoV-2 test is a rapid, real-francisco e RT-PCR test intended f or the qualitative det ection of nucleic acid fr om SARS-CoV-2 in a nasopharyngeal swab specimen [facility] claudio from individuals adan pected of COVID-19 by the [facility]. INFLUENZA A RT-PCR Negative Negative The Flu A target nucleic (test code = acids are not d etected in 19100512) this specimen. INFLUENZA B RT-PCR Negative Negative The Flu B target nucleic (test code = acids are not d etected in 19100513) this specimen. RSV RT-PCR (test Negative Negative The RSV tar get nucleic code = 7655773) acids are no t detected in this specimen. The presence of SARS-CoV-2/FLU/RSV viral nucleic acids cannot rule out co- infections or disease caused by other viral or bacterial pathogens. As with any molecular test, mutations within the target regions of the Xpert Xpress SARS-CoV-2/Flu/RSV test could affect primer and/or probe binding resulting in failure to detect the presence of virus or the virus being detected less predictably. False negative results may occur if the virus is present at levels below the analytical limit of detection in thisspecimen.This Xpert Xpress SARS-CoV-2/Flu/RSV test is a rapid, real-time RT-PCR test intended for the qualitative detection of nucleic acid from Xpert Xpress SARS-CoV-2/Flu/RSV in a nasopharyngeal swabspecimen collected from individuals suspected of Xpert Xpress SARS-CoV-2/Flu/RSV by their healthcareprovider. Results from [facility] Xpert Xpress SARS-CoV-2/Flu/RSV test should be correlated with the clinical history, epidemiological data, and other data available to the clinician evaluating the patient. Viral nucleic acid may persist in vivo, independent of virus viability. Detection of analyte target(s)does not imply that the corresponding virus(es) are infectious or are the causative agents for clinical symptoms.This test has not been Food and Drug Administration (FDA) cleared or approved and has been authorized by FDA under an Emergency Use Authorization (EUA). This EUA will be effective until thedeclaration that circumstances exist justifying the authorization of the emergency use of in vitro diagnostic tests for detection and/or diagnosis of COVID-19 is terminated under Section 564(b)(2) of the Act or the EUA is revoked under Section 564(g) of the Act.Fact Sheet for Healthcare Providers:https ://www.cepheid.com/Documents/Xpert%20Xpress%20SARS%20CoV-2/Fact%20Sheets/302-390 2%60OFYL-KUX-9%20HEALTHCARE%20PROVIDERS%20FACT%20SHEET.pdfFact Sheet for Healthcare Patients:https://www.Spangle/Docum ents/Xpert%20Xpress%20SARS%20Cov-2/Fact%20Sheets/302-3801%42YKYO-USR-9%20PATIENT %20FACT%20SHEET.pdfBLOOD GAS, [id number] 22:44:14 Test Item Value Reference Range Interpretation Comments PH VENOUS (BEAKER) (test code = 7.42 7.32-7.42 701) PCO2 VENOUS (BEAKER) (test code = 47 mm Hg 41-51 755) PO2 VENOUS (BEAKER) (test code = 54 mm Hg 25-40 H 702) O2 SATURATION VENOUS (BEAKER) 88.1 % 40.0-70.0 H (test code = 703) HCO3 VENOUS (BEAKER) (test code = 30 mmol/L 21-29 H 705) BASE EXCESS VENOUS (BEAKER) (test 4.4 mmol/L -2.0-3.0 H code = 704) PATIENT TEMPERATURE (BEAKER) (test 37.0 code = 1818) FIO2 (BEAKER) (test code = 1819) 21.0 COMPREHENSIVE METABOLIC [id number] 20:48:26 Test Item Value Reference Range Interpretation Comments TOTAL PROTEIN 8.8 gm/dL 6.0-8.3 H (BEAKER) (test code = 770) ALBUMIN (BEAKER) 3.8 g/dL 3.5-5.0 (test code = 1145) ALKALINE 158 U/L 40-150 H PHOSPHATASE (BEAKER) (test code = 346) BILIRUBIN TOTAL 0.2 mg/dL 0.2-1.2 (BEAKER) (test code = 377) SODIUM (BEAKER) 141 meq/L 136-145 (test code = 381) POTASSIUM (BEAKER) 4.0 meq/L 3.5-5.1 (test code = 379) CHLORIDE (BEAKER) 102 meq/L 98-107 (test code = 382) CO2 (BEAKER) (test 26 meq/L 22-29 code = 355) BLOOD UREA 12 mg/dL 7-21 NITROGEN (BEAKER) (test code = 354) CREATININE 0.70 mg/dL 0.57-1.25 (BEAKER) (test code = 358) GLUCOSE RANDOM 98 mg/dL 70-105 (BEAKER) (test code = 652) CALCIUM (BEAKER) 10.2 mg/dL 8.4-10.2 (test code = 697) AST (SGOT) 19 U/L 5-34 (BEAKER) (test code = 353) ALT (SGPT) 29 U/L 6-55 (BEAKER) (test code = 347) EGFR (BEAKER) 121 Interpretatio n of eGFR (test code = 1092) mL/min/1.[address] age Description sq m Result G1 Tyra l or high >=90 G2 Mildly decreased 60-89 G3a Mildl y to moderately 45-5 9 G3b Moderately to s everely 30-44 G4 Severl y decreased 15-29 G5 Kidney failure <15Reported eGF R is based on the CKD-EPI 2020 equation that d oes not use a race coefficientEsti mated GFR is not as accur ate as Creatinine Papi sandor in predicting glom erular filtration rate . Estimated GFR is not appl icable for dialysis patien ts Roll Icer ID - [id number] 20:43:04 Test Item Value Reference Range Interpretation Comments PARTIAL THROMBOPLASTIN TIME 34.0 seconds 22.5-36.0 (BEAKER) (test code = 760) PROTHROMBIN [id number] 20:42:27 Test Item Value Reference Range Interpretation Comments PROTIME (BEAKER) 14.5 seconds 11.9-14.2 H (test code = 759) INR (BEAKER) (test 1.20 See_Comment [Automat ed message] code = 370) The system [employer] generated this result transmitted ref erence range: <=5.90. The reference range was not used to int erpret this result as normal/abnormal . RECOMMENDED COUMADIN/WARFARIN INR THERAPY RANGESSTANDARD DOSE: 2.0 - 3.0 Includes: PROPHYLAXIS for venous thrombosis, systemic embolization; TREATMENT for venous thrombosis and/or pulmonary embolus.HIGH RISK: Target INR is 2.5-3.5 for patients with mechanical heart valves.LACTIC ACID, [id number] 20:32:43 Test Item Value Reference Range Interpretation Comments LACTATE BLOOD VENOUS 0.87 mmol/L 0.50-2.20 Specime n slightly (2) (BEAKER) (test hemolyzed code = 2872) Roll Icer ID - BSCBC W/PLT COUNT & AUTO [id number] 20:30:40 Test Item Value Reference Range Interpretation Comments WHITE BLOOD CELL COUNT (BEAKER) 8.1 K/ L 3.5-10.5 (test code = 775) RED BLOOD CELL COUNT (BEAKER) 4.62 M/ L 4.63-6.08 L (test code = 761) HEMOGLOBIN (BEAKER) (test code = 13.0 GM/DL 13.7-17.5 L 410) HEMATOCRIT (BEAKER) (test code = 41.9 % 40.1-51.0 411) MEAN CORPUSCULAR VOLUME (BEAKER) 91 fL 79-92 (test code = 753) MEAN CORPUSCULAR HEMOGLOBIN 28.1 pg 25.7-32.2 (BEAKER) (test code = 751) MEAN CORPUSCULAR HEMOGLOBIN CONC 31.0 GM/DL 32.3-36.5 L (BEAKER) (test code = 752) RED CELL DISTRIBUTION WIDTH 13.0 % 11.6-14.4 (BEAKER) (test code = 412) PLATELET COUNT (BEAKER) (test 461 K/CU MM 150-450 H code = 756) MEAN PLATELET VOLUME (BEAKER) 8.8 fL 9.4-12.4 L (test code = 754) NUCLEATED RED BLOOD CELLS 0 /100 WBC 0-0 (BEAKER) (test code = 413) NEUTROPHILS RELATIVE PERCENT 59 % (BEAKER) (test code = 429) LYMPHOCYTES RELATIVE PERCENT 28 % (BEAKER) (test code = 430) MONOCYTES RELATIVE PERCENT 9 % (BEAKER) (test code = 431) EOSINOPHILS RELATIVE PERCENT 4 % (BEAKER) (test code = 432) BASOPHILS RELATIVE PERCENT 1 % (BEAKER) (test code = 437) NEUTROPHILS ABSOLUTE COUNT 4.74 K/ L 1.78-5.38 (BEAKER) (test code = 670) LYMPHOCYTES ABSOLUTE COUNT 2.30 K/ L 1.32-3.57 (BEAKER) (test code = 414) MONOCYTES ABSOLUTE COUNT (BEAKER) 0.70 K/ L 0.30-0.82 (test code = 415) EOSINOPHILS ABSOLUTE COUNT 0.28 K/ L 0.04-0.54 (BEAKER) (test code = 416) BASOPHILS ABSOLUTE COUNT (BEAKER) 0.04 K/ L 0.01-0.08 (test code = 417) IMMATURE GRANULOCYTES-RELATIVE 0.50 % 0.00-1.00 PERCENT (BEAKER) (test code = 2801) RAD, CHEST, 1 VIEW, NON [id number] 19:41:00Reason for exam:->SHORTNESS OF BREATHfluid on (R) lungShould this be performed at the bedside?->Yes [facility] 1985 Sex: MFINAL REPORT History: SHORTNESS OF BREATH. Comparison: 03/29/2022 Findings: 2 frontal images of the chest are submitted. The cardiomediastinal contours are unremarkable. There is interstitial coarsening and streaky opacity in the left perihilar and lower lung, possibly some combination of atelectasis and edema. There is a large right pleural effusion with extensive opacification of the right lung. This may reflect some combination of effusion, atelectasis and edema. Pneumonitis should be excluded clinically. There is no pneumothorax. There is thoracolumbar levoscoliosis. Signed: Kriss Monte MDReport Verified Date/Time: 04/10/2022 19:41:55 POCT-GLUCOSE [id number] 12:20:59 Test Item Value Reference Range Interpretation Comments POC-GLUCOSE METER 122 mg/dL 70-110 H : TESTED A T [facility]20 (BEAKER) (test code = [facility], 1538) 59028: Roll Icer/Techni carroll ID = [id number] for Nicole Grimaldo POCT-GLUCOSE [id number] 06:01:16 Test Item Value Reference Range Interpretation Comments POC-GLUCOSE METER 119 mg/dL 70-110 H : TESTED A T [facility] 6720 (BEAKER) (test code = [facility], 1538) 04437: Roll Icer/Techni carroll ID = [id number] for Ng Areli pacheco [id number] 04:36:36 Test Item Value Reference Range Interpretation Comments MAGNESIUM (BEAKER) (test code = 1.9 mg/dL 1.6-2.6 627) Roll Icer ID - MALOU [id number] 04:36:36 Test Item Value Reference Range Interpretation Comments PHOSPHORUS (BEAKER) (test code = 4.1 mg/dL 2.3-4.7 604) Roll Icer ID - PITHEO LBASIC METABOLIC [id number] 04:36:35 Test Item Value Reference Range Interpretation Comments SODIUM (BEAKER) 142 meq/L 136-145 (test code = 381) POTASSIUM 3.7 meq/L 3.5-5.1 (BEAKER) (test code = 379) CHLORIDE (BEAKER) 102 meq/L 98-107 (test code = 382) CO2 (BEAKER) 27 meq/L 22-29 (test code = 355) BLOOD UREA 27 mg/dL 7-21 H NITROGEN (BEAKER) (test code = 354) CREATININE 0.67 mg/dL 0.57-1.25 (BEAKER) (test code = 358) GLUCOSE RANDOM 110 mg/dL 70-105 H (BEAKER) (test code = 652) CALCIUM (BEAKER) 9.8 mg/dL 8.4-10.2 (test code = 697) EGFR (BEAKER) 123 Interpretatio n of eGFR (test code = mL/min/1.73 values Stage De scription 1092) sq m Result G1 Tyra l or high >=90 G2 Mildly decreased 60-89 G3a Mildl y to moderately 45-5 9 G3b Moderately to s everely 30-44 G4 Severl y decreased 15-29 G5 Kidney failure <15Reported eGF R is based on the CKD-EPI 2020 equation that d oes not use a race coefficientEsti mated GFR is not as accur ate as Creatinine Papi patten in predicting glom erular filtration rate . Estimated GFR is not appl icable for dialysis patien ts Roll Icer ID - PIAYA LCBC W/PLT COUNT & AUTO [id number] 04:07:53 Test Item Value Reference Range Interpretation Comments WHITE BLOOD CELL COUNT (BEAKER) 7.6 K/ L 3.5-10.5 (test code = 775) RED BLOOD CELL COUNT (BEAKER) 3.88 M/ L 4.63-6.08 L (test code = 761) HEMOGLOBIN (BEAKER) (test code = 11.1 GM/DL 13.7-17.5 L 410) HEMATOCRIT (BEAKER) (test code = 35.2 % 40.1-51.0 L 411) MEAN CORPUSCULAR VOLUME (BEAKER) 91 fL 79-92 (test code = 753) MEAN CORPUSCULAR HEMOGLOBIN 28.6 pg 25.7-32.2 (BEAKER) (test code = 751) MEAN CORPUSCULAR HEMOGLOBIN CONC 31.5 GM/DL 32.3-36.5 L (BEAKER) (test code = 752) RED CELL DISTRIBUTION WIDTH 13.1 % 11.6-14.4 (BEAKER) (test code = 412) PLATELET COUNT (BEAKER) (test 539 K/CU MM 150-450 H code = 756) MEAN PLATELET VOLUME (BEAKER) 9.0 fL 9.4-12.4 L (test code = 754) NUCLEATED RED BLOOD CELLS 0 /100 WBC 0-0 (BEAKER) (test code = 413) NEUTROPHILS RELATIVE PERCENT 46 % (BEAKER) (test code = 429) LYMPHOCYTES RELATIVE PERCENT 30 % (BEAKER) (test code = 430) MONOCYTES RELATIVE PERCENT 14 % (BEAKER) (test code = 431) EOSINOPHILS RELATIVE PERCENT 8 % (BEAKER) (test code = 432) BASOPHILS RELATIVE PERCENT 1 % (BEAKER) (test code = 437) NEUTROPHILS ABSOLUTE COUNT 3.53 K/ L 1.78-5.38 (BEAKER) (test code = 670) LYMPHOCYTES ABSOLUTE COUNT 2.27 K/ L 1.32-3.57 (BEAKER) (test code = 414) MONOCYTES ABSOLUTE COUNT (BEAKER) 1.09 K/ L 0.30-0.82 H (test code = 415) EOSINOPHILS ABSOLUTE COUNT 0.59 K/ L 0.04-0.54 H (BEAKER) (test code = 416) BASOPHILS ABSOLUTE COUNT (BEAKER) 0.11 K/ L 0.01-0.08 H (test code = 417) IMMATURE GRANULOCYTES-RELATIVE 0.70 % 0.00-1.00 PERCENT (BEAKER) (test code = 2801) POCT-GLUCOSE [id number] 00:41:24 Test Item Value Reference Range Interpretation Comments POC-GLUCOSE METER 111 mg/dL 70-110 H : TESTED A T [facility] 6720 (BEAKER) (test code = [facility], 153) 84522: Roll Icer/Techni carroll ID = [id number] for Ng taraAreli hartley POCT-GLUCOSE [id number] 17:39:40 Test Item Value Reference Range Interpretation Comments POC-GLUCOSE METER 111 mg/dL 70-110 H : TESTED A T [facility] 6720 (BEAKER) (test code = [facility], 153) 64311: Roll Icer/Techni carroll ID = [id number] for Nicole Grimaldo POCT-GLUCOSE [id number] 12:35:56 Test Item Value Reference Range Interpretation Comments POC-GLUCOSE METER 129 mg/dL 70-110 H : TESTED A T [facility] 6720 (BEAKER) (test code = [facility], 153) 36046: Roll Icer/Techni carroll ID = [id number] for Amanda Grimaldonn Legionella [id number] 09:46:47 Test Item Value Reference Range Interpretation Comments Result (test code = No Legionella species 6463-4) isolated CHRISTINA (test code = CHRISTINA) [facility]Legion[facility] [id number] 09:46:47 Test Item Value Reference Range Interpretation Comments Result (test code = No Legionella species 6463-4) isolated CHRISTINA (test code = CHRISTINA) [facility] HospitalLEGIONELLA [id number] 09:46:47 Test Item Value Reference Range Interpretation Comments CULTURE (BEAKER) No Legionella species (test code = 1095) isolated BASIC METABOLIC [id number] 05:03:10 Test Item Value Reference Range Interpretation Comments SODIUM (BEAKER) 144 meq/L 136-145 (test code = 381) POTASSIUM 3.3 meq/L 3.5-5.1 L (BEAKER) (test code = 379) CHLORIDE (BEAKER) 101 meq/L 98-107 (test code = 382) CO2 (BEAKER) 29 meq/L 22-29 (test code = 355) BLOOD UREA 29 mg/dL 7-21 H NITROGEN (BEAKER) (test code = 354) CREATININE 0.61 mg/dL 0.57-1.25 (BEAKER) (test code = 358) GLUCOSE RANDOM 110 mg/dL 70-105 H (BEAKER) (test code = 652) CALCIUM (BEAKER) 9.8 mg/dL 8.4-10.2 (test code = 697) EGFR (BEAKER) 125 Interpretatio n of eGFR (test code = mL/min/1.73 values Stage D escription 1092) sq m Result G1 Tyra l or high >=90 G2 Mildly decreased 60-89 G3a Mildl y to moderately 45-5 9 G3b Moderately to s everely 30-44 G4 Severl y decreased 15-29 G5 Kidney failure <15Reported eGF R is based on the CKD-EPI 2020 equation that d oes not use a race coefficientEsti mated GFR is not as accur ate as Creatinine Papi patten in predicting glom erular filtration rate . Estimated GFR is not appl icable for dialysis patien ts Roll Icer ID - MALOU [id number] 05:03:10 Test Item Value Reference Range Interpretation Comments MAGNESIUM (BEAKER) (test code = 2.0 mg/dL 1.6-2.6 627) Roll Icer ID - MALOU [id number] 05:03:10 Test Item Value Reference Range Interpretation Comments PHOSPHORUS (BEAKER) (test code = 4.3 mg/dL 2.3-4.7 604) Roll Icer ID - MALOU LCBC W/PLT COUNT & AUTO [id number] 05:02:12 Test Item Value Reference Range Interpretation Comments WHITE BLOOD CELL COUNT (BEAKER) 7.6 K/ L 3.5-10.5 (test code = 775) RED BLOOD CELL COUNT (BEAKER) 3.77 M/ L 4.63-6.08 L (test code = 761) HEMOGLOBIN (BEAKER) (test code = 11.0 GM/DL 13.7-17.5 L 410) HEMATOCRIT (BEAKER) (test code = 34.8 % 40.1-51.0 L 411) MEAN CORPUSCULAR VOLUME (BEAKER) 92 fL 79-92 (test code = 753) MEAN CORPUSCULAR HEMOGLOBIN 29.2 pg 25.7-32.2 (BEAKER) (test code = 751) MEAN CORPUSCULAR HEMOGLOBIN CONC 31.6 GM/DL 32.3-36.5 L (BEAKER) (test code = 752) RED CELL DISTRIBUTION WIDTH 13.1 % 11.6-14.4 (BEAKER) (test code = 412) PLATELET COUNT (BEAKER) (test 512 K/CU MM 150-450 H code = 756) MEAN PLATELET VOLUME (BEAKER) 9.1 fL 9.4-12.4 L (test code = 754) NUCLEATED RED BLOOD CELLS 0 /100 WBC 0-0 (BEAKER) (test code = 413) NEUTROPHILS RELATIVE PERCENT 53 % (BEAKER) (test code = 429) LYMPHOCYTES RELATIVE PERCENT 27 % (BEAKER) (test code = 430) MONOCYTES RELATIVE PERCENT 12 % (BEAKER) (test code = 431) EOSINOPHILS RELATIVE PERCENT 7 % (BEAKER) (test code = 432) BASOPHILS RELATIVE PERCENT 1 % (BEAKER) (test code = 437) NEUTROPHILS ABSOLUTE COUNT 4.00 K/ L 1.78-5.38 (BEAKER) (test code = 670) LYMPHOCYTES ABSOLUTE COUNT 2.06 K/ L 1.32-3.57 (BEAKER) (test code = 414) MONOCYTES ABSOLUTE COUNT (BEAKER) 0.92 K/ L 0.30-0.82 H (test code = 415) EOSINOPHILS ABSOLUTE COUNT 0.50 K/ L 0.04-0.54 (BEAKER) (test code = 416) BASOPHILS ABSOLUTE COUNT (BEAKER) 0.10 K/ L 0.01-0.08 H (test code = 417) IMMATURE GRANULOCYTES-RELATIVE 0.50 % 0.00-1.00 PERCENT (BEAKER) (test code = 2801) POCT-GLUCOSE [id number] 00:54:52 Test Item Value Reference Range Interpretation Comments POC-GLUCOSE METER 116 mg/dL 70-110 H : TESTED A T [facility] 6720 (BEAKER) (test code = [facility] [place], 1538) 11135: Roll Icer/Techni carroll ID = [id number] for Ng Areli pacheco POCT-GLUCOSE [id number] 18:02:27 Test Item Value Reference Range Interpretation Comments POC-GLUCOSE METER 129 mg/dL 70-110 H : TESTED A T [facility] 6720 (BEAKER) (test code = [facility], 1538) 42270: Roll Icer/Techni carroll ID = [id number] for SA NTOS, KHADAR FL, ESOPH, SWALLOW FUNCTION, WITH CINE OR [id number] 13:41:00Reason for exam:->aspiration eval [facility] : 1985 Sex: MFINAL REPORT Modified barium swallow exam with speech pathology service CLINICAL HISTORY: aspiration eval IMPRESSION: Please see the speech pathology service report for details. Bariumcontrast of multiple consistencies is given to the patient to swallow. Fluoroscopic observation is performed during swallowing. Fluoro time: 2.0 minutes Number of images: 1 cine clip Signed: Lore Neal Verified Date/Time: 03/29/2022 13:41:34 Reading Location: [address] Consult Reading Room POCT-GLUCOSE [id number] 13:21:05 Test Item Value Reference Range Interpretation Comments POC-GLUCOSE METER 132 mg/dL 70-110 H : TESTED A T [facility] 6720 (BEAKER) (test code = GR[facility], 1538) 46250: Roll Icer/Techni carroll ID = [id number] for FRANCE CARPENTER POCT-GLUCOSE [id number] 12:30:50 Test Item Value Reference Range Interpretation Comments POC-GLUCOSE METER 133 mg/dL 70-110 H : TESTED A T [facility] 6720 (BEAKER) (test code AMANDA [facility], = 1538) 96223: Roll Icer/Techni carroll ID = [id number] for LATSMOOTH LOPEZ Virus culture Expected virus: [id number] 12:19:59 Test Item Value Reference Range Interpretation Comments Result (test code = 6463-4) See comment CHRISTINA (test code = CHRISTINA) See scan report Lab Interpretation (test code Normal = 71098-0) [facility] Expected virus: [id number] 12:19:59 Test Item Value Reference Range Interpretation Comments Result (test code = 6463-4) See comment CHRISTINA (test code = CHRISTINA) See scan report Lab Interpretation (test code Normal = 31030-6) [facility]CBC W/PLT COUNT & AUTO [id number] 11:47:21 Test Item Value Reference Range Interpretation Comments WHITE BLOOD CELL COUNT (BEAKER) 9.1 K/ L 3.5-10.5 (test code = 775) RED BLOOD CELL COUNT (BEAKER) 3.81 M/ L 4.63-6.08 L (test code = 761) HEMOGLOBIN (BEAKER) (test code = 11.1 GM/DL 13.7-17.5 L 410) HEMATOCRIT (BEAKER) (test code = 35.0 % 40.1-51.0 L 411) MEAN CORPUSCULAR VOLUME (BEAKER) 92 fL 79-92 (test code = 753) MEAN CORPUSCULAR HEMOGLOBIN 29.1 pg 25.7-32.2 (BEAKER) (test code = 751) MEAN CORPUSCULAR HEMOGLOBIN CONC 31.7 GM/DL 32.3-36.5 L (BEAKER) (test code = 752) RED CELL DISTRIBUTION WIDTH 13.2 % 11.6-14.4 (BEAKER) (test code = 412) PLATELET COUNT (BEAKER) (test 539 K/CU MM 150-450 H code = 756) MEAN PLATELET VOLUME (BEAKER) 8.8 fL 9.4-12.4 L (test code = 754) NUCLEATED RED BLOOD CELLS 0 /100 WBC 0-0 (BEAKER) (test code = 413) NEUTROPHILS RELATIVE PERCENT 63 % (BEAKER) (test code = 429) LYMPHOCYTES RELATIVE PERCENT 22 % (BEAKER) (test code = 430) MONOCYTES RELATIVE PERCENT 11 % (BEAKER) (test code = 431) EOSINOPHILS RELATIVE PERCENT 3 % (BEAKER) (test code = 432) BASOPHILS RELATIVE PERCENT 1 % (BEAKER) (test code = 437) NEUTROPHILS ABSOLUTE COUNT 5.69 K/ L 1.78-5.38 H (BEAKER) (test code = 670) LYMPHOCYTES ABSOLUTE COUNT 1.99 K/ L 1.32-3.57 (BEAKER) (test code = 414) MONOCYTES ABSOLUTE COUNT (BEAKER) 1.00 K/ L 0.30-0.82 H (test code = 415) EOSINOPHILS ABSOLUTE COUNT 0.30 K/ L 0.04-0.54 (BEAKER) (test code = 416) BASOPHILS ABSOLUTE COUNT (BEAKER) 0.08 K/ L 0.01-0.08 (test code = 417) IMMATURE GRANULOCYTES-RELATIVE 0.50 % 0.00-1.00 PERCENT (BEAKER) (test code = 2801) RAD, CHEST, 1 VIEW, NON [id number] 11:12:00Reason for exam:->intuabted, pneumothorax ,s/p CTShould this be performed at the bedside?->Yes [facility] : 1985 Sex: MFINAL REPORT RAD, CHEST, 1 VIEW, NON DEPT INDICATION: intuabted, pneumothorax ,s/p CT COMPARISON: Prior day's exam FINDINGS: Portable frontal view of the chest. IMPRESSION: Patient rotated toward the left.Support Lines: No significant change. Lungs and pleura: Loculated right pleural effusion with diffuse opacities suggestive of pulmonary edema stable in appearance. No discernible pneumothorax on the current exam.Heart and mediastinum: Stable contours. Additional findings: None. Signed: Alfredo La MDReport Verified Date/Time: 03/29/2022 11:12:57 BASIC METABOLIC [id number] 06:27:54 Test Item Value Reference Range Interpretation Comments SODIUM (BEAKER) 140 meq/L 136-145 (test code = 381) POTASSIUM 4.0 meq/L 3.5-5.1 Specimen slight ly (BEAKER) (test hemolyzed code = 379) CHLORIDE (BEAKER) 104 meq/L 98-107 (test code = 382) CO2 (BEAKER) 23 meq/L 22-29 (test code = 355) BLOOD UREA 30 mg/dL 7-21 H NITROGEN (BEAKER) (test code = 354) CREATININE 0.63 mg/dL 0.57-1.25 Specimen slight ly (BEAKER) (test hemolyzed code = 358) GLUCOSE RANDOM 120 mg/dL 70-105 H (BEAKER) (test code = 652) CALCIUM (BEAKER) 9.4 mg/dL 8.4-10.2 (test code = 697) EGFR (BEAKER) 124 Interpretatio n of eGFR (test code = mL/min/1.73 values Stage De scription 1092) sq m Result G1 Tyra l or high >=90 G2 Mildly decreased 60-89 G3a Mild ly to moderately 45-5 9 G3b Moderately to s everely 30-44 G4 Severl y decreased 15-29 G5 Kidney failure <15Reported eGF R is based on the CKD-EPI 2020 equation that d oes not use a race coefficientEsti mated GFR is not as accur ate as Creatinine Papi patten in predicting glom erular filtration rate . Estimated GFR is not appl icable for dialysis patien ts Roll Icer ID - [id number] 06:27:53 Test Item Value Reference Range Interpretation Comments MAGNESIUM (BEAKER) 1.9 mg/dL 1.6-2.6 Specimen slightly (test code = 627) hemolyzed Roll Icer ID - [id number] 06:27:53 Test Item Value Reference Range Interpretation Comments PHOSPHORUS (BEAKER) 3.8 mg/dL 2.3-4.7 Specimen slightly (test code = 604) hemolyzed Roll Icer ID - BSFUNGUS CULTURE + [id number] 02:44:21 Test Item Value Reference Range Interpretation Comments CULTURE (BEAKER) A <1+ Danielle albicans (test code = 1095) FUNGUS SMEAR No fungi seen (BEAKER) (test code = 1406) RAD, CHEST, 1 VIEW, NON [id number] 10:38:00Reason for exam:->intuabted, pneumothorax ,s/p CTShould this be performed at the bedside?->Yes [facility] 1985 Sex: MFINAL REPORT RAD, CHEST, 1 VIEW, NON DEPT INDICATION: intubated, pneumothorax ,s/pCT COMPARISON: Prior day's exam FINDINGS: Portable frontal view of the chest. IMPRESSION: Support Lines: ET tube removed. Stable enteric tube. Lungs and pleura: Small right pleural effusion has increased. Diffuse right lung pulmonary opacities are stable. Small left apical pneumothorax versus bullous c hange is stableHeart and mediastinum: Stable contours. Additional findings: None. Signed: Alfredo Laeport Verified Date/Time: 03/28/2022 10:38:31 CBC W/PLT COUNT & AUTO [id number] 05:38:33 Test Item Value Reference Range Interpretation Comments WHITE BLOOD CELL COUNT (BEAKER) 7.8 K/ L 3.5-10.5 (test code = 775) RED BLOOD CELL COUNT (BEAKER) 3.93 M/ L 4.63-6.08 L (test code = 761) HEMOGLOBIN (BEAKER) (test code = 11.5 GM/DL 13.7-17.5 L 410) HEMATOCRIT (BEAKER) (test code = 35.9 % 40.1-51.0 L 411) MEAN CORPUSCULAR VOLUME (BEAKER) 91 fL 79-92 (test code = 753) MEAN CORPUSCULAR HEMOGLOBIN 29.3 pg 25.7-32.2 (BEAKER) (test code = 751) MEAN CORPUSCULAR HEMOGLOBIN CONC 32.0 GM/DL 32.3-36.5 L (BEAKER) (test code = 752) RED CELL DISTRIBUTION WIDTH 13.3 % 11.6-14.4 (BEAKER) (test code = 412) PLATELET COUNT (BEAKER) (test 633 K/CU MM 150-450 H code = 756) MEAN PLATELET VOLUME (BEAKER) 9.2 fL 9.4-12.4 L (test code = 754) NUCLEATED RED BLOOD CELLS 0 /100 WBC 0-0 (BEAKER) (test code = 413) NEUTROPHILS RELATIVE PERCENT 50 % (BEAKER) (test code = 429) LYMPHOCYTES RELATIVE PERCENT 32 % (BEAKER) (test code = 430) MONOCYTES RELATIVE PERCENT 14 % (BEAKER) (test code = 431) EOSINOPHILS RELATIVE PERCENT 3 % (BEAKER) (test code = 432) BASOPHILS RELATIVE PERCENT 1 % (BEAKER) (test code = 437) NEUTROPHILS ABSOLUTE COUNT 3.87 K/ L 1.78-5.38 (BEAKER) (test code = 670) LYMPHOCYTES ABSOLUTE COUNT 2.48 K/ L 1.32-3.57 (BEAKER) (test code = 414) MONOCYTES ABSOLUTE COUNT (BEAKER) 1.10 K/ L 0.30-0.82 H (test code = 415) EOSINOPHILS ABSOLUTE COUNT 0.23 K/ L 0.04-0.54 (BEAKER) (test code = 416) BASOPHILS ABSOLUTE COUNT (BEAKER) 0.09 K/ L 0.01-0.08 H (test code = 417) IMMATURE GRANULOCYTES-RELATIVE 0.80 % 0.00-1.00 PERCENT (BEAKER) (test code = 2801) [id number] 05:05:56 Test Item Value Reference Range Interpretation Comments PHOSPHORUS (BEAKER) (test code = 3.9 mg/dL 2.3-4.7 604) Roll Icer ID - POLLY GBASIC METABOLIC [id number] 05:05:55 Test Item Value Reference Range Interpretation Comments SODIUM (BEAKER) 143 meq/L 136-145 (test code = 381) POTASSIUM 3.2 meq/L 3.5-5.1 L (BEAKER) (test code = 379) CHLORIDE (BEAKER) 99 meq/L 98-107 (test code = 382) CO2 (BEAKER) 30 meq/L 22-29 H (test code = 355) BLOOD UREA 29 mg/dL 7-21 H NITROGEN (BEAKER) (test code = 354) CREATININE 0.68 mg/dL 0.57-1.25 (BEAKER) (test code = 358) GLUCOSE RANDOM 110 mg/dL 70-105 H (BEAKER) (test code = 652) CALCIUM (BEAKER) 10.0 mg/dL 8.4-10.2 (test code = 697) EGFR (BEAKER) 122 Interpretatio n of eGFR (test code = mL/min/1.73 values Stage De scription 1092) sq m Result G1 Tyra l or high >=90 G2 Mildly decreased 60-89 G3a Mildl y to moderately 45-5 9 G3b Moderately to s everely 30-44 G4 Severl y decreased 15-29 G5 Kidne y failure <15Reported eGF R is based on the CKD-EPI 2020 equation that d oes not use a race coefficientEsti mated GFR is not as accur ate as Creatinine Papi sandor in predicting glom erular filtration rate . Estimated GFR is not appl icable for dialysis patien ts Roll Icer ID - POLLY [id number] 05:05:55 Test Item Value Reference Range Interpretation Comments MAGNESIUM (BEAKER) (test code = 1.9 mg/dL 1.6-2.6 627) Roll Icer ID - POLLY GBLOOD [id number] 22:00:51 Test Item Value Reference Range Interpretation Comments CULTURE (BEAKER) (test No growth in 5 days code = 1095) BLOOD [id number] 21:01:11 Test Item Value Reference Range Interpretation Comments CULTURE (BEAKER) (test No growth in 5 days code = 1095) RAD, CHEST, 1 VIEW, NON [id number] 13:26:00Reason for exam:->intuabted, pneumothorax ,s/p CTShould this be performed at the bedside?->Yes [facility] : 1985 Sex: MFINAL REPORT RAD, CHEST, 1 VIEW, NON DEPT INDICATION: intubated, pneumothorax ,s/p CT COMPARISON: Prior day's exam FINDINGS: Portable frontal view of the chest. IMPRESSION: Support Lines: No significant change. Lungs and pleura: Unchanged right airspace and pleural opacities. Stable minimal left lung base interstitial thickening and basilar scarring or atelectasis. Redemonstration ofleft apical curvilinear line without lung markings along the periphery concerning for small left apical pneumothorax versus bullous change.Heart and mediastinum: Stable contours. Additional findings: None. Signed: Alfredo Laeport Verified Date/Time: 03/27/2022 13:26:22 PHERAL BLOOD SMEAR - PATHOLOGIST [id number] 09:46:14 Test Item Value Reference Range Interpretation Comments PERIPHERAL SMR REVIEW Cell counts confirmed. (BEAKER) (test code = 2640) [id number] Sammie Arzate M.D. (BEAKER) (test code = (electronic signature) 8222) BASIC METABOLIC [id number] 05:52:04 Test Item Value Reference Range Interpretation Comments SODIUM (BEAKER) 141 meq/L 136-145 (test code = 381) POTASSIUM 3.5 meq/L 3.5-5.1 (BEAKER) (test code = 379) CHLORIDE (BEAKER) 100 meq/L 98-107 (test code = 382) CO2 (BEAKER) 29 meq/L 22-29 (test code = 355) BLOOD UREA 28 mg/dL 7-21 H NITROGEN (BEAKER) (test code = 354) CREATININE 0.67 mg/dL 0.57-1.25 (BEAKER) (test code = 358) GLUCOSE RANDOM 123 mg/dL 70-105 H (BEAKER) (test code = 652) CALCIUM (BEAKER) 10.1 mg/dL 8.4-10.2 (test code = 697) EGFR (BEAKER) 123 Interpretatio n of eGFR (test code = mL/min/1.73 values Stage De scription 1092) sq m Result G1 Tyra l or high >=90 G2 Mildly decreased 60-89 G3a Mildl y to moderately 45-5 9 G3b Moderately to s everely 30-44 G4 Severl y decreased 15-29 G5 Kidne y failure <15Reported eGF R is based on the CKD-EPI 2020 equation that d oes not use a race coefficientEsti mated GFR is not as accur ate as Creatinine Papi patten in predicting glom erular filtration rate . Estimated GFR is not appl icable for dialysis patien ts Roll Icer ID - [id number] 05:52:04 Test Item Value Reference Range Interpretation Comments MAGNESIUM (BEAKER) (test code = 1.9 mg/dL 1.6-2.6 627) Roll Icer ID - [id number] 05:52:04 Test Item Value Reference Range Interpretation Comments PHOSPHORUS (BEAKER) (test code = 3.4 mg/dL 2.3-4.7 604) Roll Icer ID - ADMINB-TYPE NATRIURETIC FACTOR (BNP)2022-03-27 05:06:58 Test Item Value Reference Range Interpretation Comments B-TYPE NATRIURETIC PEPTIDE (BEAKER) < pg/mL 0-100 (test code = 700) Roll Icer ID - MALOU LCBC W/PLT COUNT & AUTO [id number] 04:46:52 Test Item Value Reference Range Interpretation Comments WHITE BLOOD CELL COUNT (BEAKER) 7.2 K/ L 3.5-10.5 (test code = 775) RED BLOOD CELL COUNT (BEAKER) 3.72 M/ L 4.63-6.08 L (test code = 761) HEMOGLOBIN (BEAKER) (test code = 10.9 GM/DL 13.7-17.5 L 410) HEMATOCRIT (BEAKER) (test code = 34.4 % 40.1-51.0 L 411) MEAN CORPUSCULAR VOLUME (BEAKER) 93 fL 79-92 H (test code = 753) MEAN CORPUSCULAR HEMOGLOBIN 29.3 pg 25.7-32.2 (BEAKER) (test code = 751) MEAN CORPUSCULAR HEMOGLOBIN CONC 31.7 GM/DL 32.3-36.5 L (BEAKER) (test code = 752) RED CELL DISTRIBUTION WIDTH 13.5 % 11.6-14.4 (BEAKER) (test code = 412) PLATELET COUNT (BEAKER) (test 630 K/CU MM 150-450 H code = 756) MEAN PLATELET VOLUME (BEAKER) 9.2 fL 9.4-12.4 L (test code = 754) NUCLEATED RED BLOOD CELLS 0 /100 WBC 0-0 (BEAKER) (test code = 413) NEUTROPHILS RELATIVE PERCENT 52 % (BEAKER) (test code = 429) LYMPHOCYTES RELATIVE PERCENT 30 % (BEAKER) (test code = 430) MONOCYTES RELATIVE PERCENT 13 % (BEAKER) (test code = 431) EOSINOPHILS RELATIVE PERCENT 4 % (BEAKER) (test code = 432) BASOPHILS RELATIVE PERCENT 1 % (BEAKER) (test code = 437) NEUTROPHILS ABSOLUTE COUNT 3.72 K/ L 1.78-5.38 (BEAKER) (test code = 670) LYMPHOCYTES ABSOLUTE COUNT 2.15 K/ L 1.32-3.57 (BEAKER) (test code = 414) MONOCYTES ABSOLUTE COUNT (BEAKER) 0.90 K/ L 0.30-0.82 H (test code = 415) EOSINOPHILS ABSOLUTE COUNT 0.25 K/ L 0.04-0.54 (BEAKER) (test code = 416) BASOPHILS ABSOLUTE COUNT (BEAKER) 0.10 K/ L 0.01-0.08 H (test code = 417) IMMATURE GRANULOCYTES-RELATIVE 0.80 % 0.00-1.00 PERCENT (BEAKER) (test code = 2801) POCT-GLUCOSE [id number] 17:59:56 Test Item Value Reference Range Interpretation Comments POC-GLUCOSE METER 122 mg/dL 70-110 H : TESTED A T [facility] 6720 (BEAKER) (test code = [facility], 1538) [address]: Roll Icer/Techni carroll ID = [id number] for Po ss, Mirna POCT-GLUCOSE [id number] 11:41:56 Test Item Value Reference Range Interpretation Comments POC-GLUCOSE METER 135 mg/dL 70-110 H : TESTED A T [facility] 6720 (BEAKER) (test code = [facility], 1538) [address]: Roll Icer/Techni carroll ID = [id number] for Po ss, Mirna RAD, CHEST, 1 VIEW, NON [id number] 10:00:00Reason for exam:->intuabted, pneumothorax ,s/p CTShould this be performed at the bedside?->Yes [facility] : 1985 Sex: MFINAL REPORT RAD, CHEST, 1 VIEW, NON DEPT INDICATION: intubated, pneumothorax ,s/p CT COMPARISON: Prior day's exam FINDINGS: Portable frontal view of the chest. IMPRESSION: Support Lines: Right neck base catheter tip overlies the mid SVC region but is nonspecific in appearance. The duotube as been advanced with tip overlying the mid stomach. Partially imaged left arm intravenous line.Lungs and pleura: Moderate right pleural effusion and diffuse interstitial opacities likely edema orpneumonia similar in appearance. Stable diminished lung markings along the periphery of the left lung, stable from the prior examinations likely representing relative sparing of acute interstitial lungdisease without definite pneumothorax. This can be better characterized by CT of the chest.Heart andmediastinum: Stable contours. Additional findings: None. Signed: Alfredo La MDReport Verified Date/Time: 03/26/2022 10:00:02 Mycoplasma pneumoniae DNA, Qualitative, Real-Time [id number] 09:57:01See scanned report.[facility] HospitalMycoplasma pneumoniae DNA, Qualitative, Real-Time [id number] 09:57:01See scanned report.[facility] [id number] 06:46:49 Test Item Value Reference Range Interpretation Comments MAGNESIUM (BEAKER) (test code = 2.0 mg/dL 1.6-2.6 627) Roll Icer ID - PIAYA [id number] 06:46:49 Test Item Value Reference Range Interpretation Comments PHOSPHORUS (BEAKER) (test code = 4.5 mg/dL 2.3-4.7 604) Roll Icer ID - PIAYA LBASIC METABOLIC [id number] 06:46:48 Test Item Value Reference Range Interpretation Comments SODIUM (BEAKER) 139 meq/L 136-145 (test code = 381) POTASSIUM 3.7 meq/L 3.5-5.1 (BEAKER) (test code = 379) CHLORIDE (BEAKER) 100 meq/L 98-107 (test code = 382) CO2 (BEAKER) 28 meq/L 22-29 (test code = 355) BLOOD UREA 32 mg/dL 7-21 H NITROGEN (BEAKER) (test code = 354) CREATININE 0.71 mg/dL 0.57-1.25 (BEAKER) (test code = 358) GLUCOSE RANDOM 132 mg/dL 70-105 H (BEAKER) (test code = 652) CALCIUM (BEAKER) 10.1 mg/dL 8.4-10.2 (test code = 697) EGFR (BEAKER) 121 Interpretatio n of eGFR (test code = mL/min/1.73 values Stage De scription 1092) sq m Result G1 Tyra l or high >=90 G2 Mildly decreased 60-89 G3a Mildl y to moderately 45-5 9 G3b Moderately to s everely 30-44 G4 Severl y decreased 15-29 G5 Kidne y failure <15Reported eGF R is based on the CKD-EPI 2020 equation that d oes not use a race coefficientEsti mated GFR is not as accur ate as Creatinine Papi sandor in predicting glom erular filtration rate . Estimated GFR is not appl icable for dialysis patien ts Roll Icer ID - PIAYA LPOCT-GLUCOSE [id number] 05:55:36 Test Item Value Reference Range Interpretation Comments POC-GLUCOSE METER 124 mg/dL 70-110 H : Notified RN/MD: (DORIS) (test code = TESTED AT [facility] [id number]) [facility], [address]: Roll Icer/Techni carroll ID = [id number] for Ez kaileyugo, Carola CBC W/PLT COUNT & AUTO [id number] 05:54:36 Test Item Value Reference Range Interpretation Comments WHITE BLOOD CELL COUNT (BEAKER) 8.0 K/ L 3.5-10.5 (test code = 775) RED BLOOD CELL COUNT (BEAKER) 4.07 M/ L 4.63-6.08 L (test code = 761) HEMOGLOBIN (BEAKER) (test code = 11.8 GM/DL 13.7-17.5 L 410) HEMATOCRIT (BEAKER) (test code = 37.4 % 40.1-51.0 L 411) MEAN CORPUSCULAR VOLUME (BEAKER) 92 fL 79-92 (test code = 753) MEAN CORPUSCULAR HEMOGLOBIN 29.0 pg 25.7-32.2 (BEAKER) (test code = 751) MEAN CORPUSCULAR HEMOGLOBIN CONC 31.6 GM/DL 32.3-36.5 L (BEAKER) (test code = 752) RED CELL DISTRIBUTION WIDTH 13.6 % 11.6-14.4 (BEAKER) (test code = 412) PLATELET COUNT (BEAKER) (test 685 K/CU MM 150-450 H code = 756) MEAN PLATELET VOLUME (BEAKER) 8.6 fL 9.4-12.4 L (test code = 754) NUCLEATED RED BLOOD CELLS 0 /100 WBC 0-0 (BEAKER) (test code = 413) NEUTROPHILS RELATIVE PERCENT 56 % (BEAKER) (test code = 429) LYMPHOCYTES RELATIVE PERCENT 26 % (BEAKER) (test code = 430) MONOCYTES RELATIVE PERCENT 12 % (BEAKER) (test code = 431) EOSINOPHILS RELATIVE PERCENT 4 % (BEAKER) (test code = 432) BASOPHILS RELATIVE PERCENT 1 % (BEAKER) (test code = 437) NEUTROPHILS ABSOLUTE COUNT 4.50 K/ L 1.78-5.38 (BEAKER) (test code = 670) LYMPHOCYTES ABSOLUTE COUNT 2.07 K/ L 1.32-3.57 (BEAKER) (test code = 414) MONOCYTES ABSOLUTE COUNT (BEAKER) 0.99 K/ L 0.30-0.82 H (test code = 415) EOSINOPHILS ABSOLUTE COUNT 0.29 K/ L 0.04-0.54 (BEAKER) (test code = 416) BASOPHILS ABSOLUTE COUNT (BEAKER) 0.09 K/ L 0.01-0.08 H (test code = 417) IMMATURE GRANULOCYTES-RELATIVE 1.00 % 0.00-1.00 PERCENT (BEAKER) (test code = 2801) [id number] 17:03:01 Test Item Value Reference Range Interpretation Comments MAGNESIUM (BEAKER) 2.1 mg/dL 1.6-2.6 Specimen moderately (test code = 627) hemolyzed Roll Icer ID - D [id number] 17:03:01 Test Item Value Reference Range Interpretation Comments PHOSPHORUS (BEAKER) 4.8 mg/dL 2.3-4.7 H Specimen moderately (test code = 604) hemolyzed Roll Icer ID - D WALKERBASIC METABOLIC [id number] 17:03:01 Test Item Value Reference Range Interpretation Comments SODIUM (BEAKER) 141 meq/L 136-145 (test code = 381) POTASSIUM 4.1 meq/L 3.5-5.1 Specimen modera tely (BEAKER) (test hemolyzed code = 379) CHLORIDE (BEAKER) 101 meq/L 98-107 (test code = 382) CO2 (BEAKER) 27 meq/L 22-29 (test code = 355) BLOOD UREA 29 mg/dL 7-21 H NITROGEN (BEAKER) (test code = 354) CREATININE 0.72 mg/dL 0.57-1.25 Specimen modera tely (BEAKER) (test hemolyzed code = 358) GLUCOSE RANDOM 117 mg/dL 70-105 H (BEAKER) (test code = 652) CALCIUM (BEAKER) 10.3 mg/dL 8.4-10.2 H (test code = 697) EGFR (BEAKER) 120 Interpretatio n of eGFR (test code = mL/min/1.73 values Stage De scription 1092) sq m Result G1 Tyra l or high >=90 G2 Mildly decreased 60-89 G3a Mildl y to moderately 45-5 9 G3b Moderately to s everely 30-44 G4 Severl y decreased 15-29 G5 Kidney failure <15Reported eGF R is based on the CKD-EPI 2020 equation that d oes not use a race coefficientEsti mated GFR is not as accur ate as Creatinine Papi patten in predicting glom erular filtration rate . Estimated GFR is not appl icable for dialysis patien ts Roll Icer ID - D WALKERRAD, ABDOMEN/KUB, 1 VIEW [id number] 12:56:00Reason for exam:->s/p NGT placement, verify tip locationShould this be performed at the bedside?->[facility] : 1985 Sex: MFINAL REPORT TECHNIQUE: Single View of the Abdomen. INDICATION: s/p NGT placement, verify tip location. COMPARISON: KUB from 03/10/2022. FINDINGS/IMPRESSION: The tip of the feeding tubeoverlies the gastric fundus. S- shaped curvature of the thoracal lumbar spine. A catheter overlies the urinary bladder. The femoral heads, shape and. Please refer to the recent chest radiograph regarding intrathoracic findings. Signed: Trevon Broussard MDReport Verified Date/Time: 03/25/2022 12:56:13 POCT-GLUCOSE [id number] 11:38:14 Test Item Value Reference Range Interpretation Comments POC-GLUCOSE METER 117 mg/dL 70-110 H : TESTED A T [facility] 6720 (BEAKER) (test code = GRADY Mcgarry [facility], 1538) [address]: Roll Icer/Techni carroll ID = [id number] for MADELEINE STINSON WOOD Sputum Culture + Gram [id number] 11:10:15 Test Item Value Reference Range Interpretation Comments Result (test code = See comment 6463-4) Gram Stain Result No organisms seen (test code = 1123) CHRISTINA (test code = 2+ YeastNo Normal CHRISTINA) respiratory stacy [facility] [id number] 11:10:15 Test Item Value Reference Range Interpretation Comments Result (test code = See comment 6463-4) Gram Stain Result No organisms seen (test code = 1123) CHRISTINA (test code = 2+ YeastNo Normal CHRISTINA) respiratory stacy present [facility]AM [id number] 11:10:15 Test Item Value Reference Range Interpretation Comments CULTURE (BEAKER) See comment (test code = 1095) GRAM STAIN RESULT 2+ White blood cells (BEAKER) (test code = seen 1123) GRAM STAIN RESULT 0-5 epithelial cells (BEAKER) (test code = 041546) GRAM STAIN RESULT No organisms seen (BEAKER) (test code = 595921) 2+ YeastNo Normal respiratory stacy presentRAD, CHEST, 1 VIEW, NON DEPT 2022-03-25 08:08:00Reason for exam:->intuabted, pneumothorax ,s/p CTShould this be performed at the bedside?->Yes [facility] : 1985 Sex: MFINAL REPORT Chest, one view. HISTORY: intubated, pneumothorax ,s/p CT COMPARISON:Radiograph from yesterday IMPRESSION: Interval extubation. The feeding tube has been retracted and now overlies the upper thorax. There is a moderate size right pleural effusion with scattered bilateral atelectasis. The increased interstitial opacities in the lungs are unchanged. The cardiac silhouette is unchanged in size. No acute bone abnormality. Signed: Trevon Broussard Verified Date/Time: 03/25/2022 08:08:17 POCT-GLUCOSE [id number] 07:12:46 Test Item Value Reference Range Interpretation Comments POC-GLUCOSE METER 117 mg/dL 70-110 H : TESTED A T [facility] 6720 (BEAKER) (test code = MAYOBRIANNA Mcgarry [facility], 1538) [address]: Roll Icer/Techni carroll ID = [id number] for Dulce Maria Pimentel CBC W/PLT COUNT & AUTO [id number] 05:12:14 Test Item Value Reference Range Interpretation Comments WHITE BLOOD CELL COUNT (BEAKER) 8.7 K/ L 3.5-10.5 (test code = 775) RED BLOOD CELL COUNT (BEAKER) 3.83 M/ L 4.63-6.08 L (test code = 761) HEMOGLOBIN (BEAKER) (test code = 11.1 GM/DL 13.7-17.5 L 410) HEMATOCRIT (BEAKER) (test code = 35.7 % 40.1-51.0 L 411) MEAN CORPUSCULAR VOLUME (BEAKER) 93 fL 79-92 H (test code = 753) MEAN CORPUSCULAR HEMOGLOBIN 29.0 pg 25.7-32.2 (BEAKER) (test code = 751) MEAN CORPUSCULAR HEMOGLOBIN CONC 31.1 GM/DL 32.3-36.5 L (BEAKER) (test code = 752) RED CELL DISTRIBUTION WIDTH 14.3 % 11.6-14.4 (BEAKER) (test code = 412) PLATELET COUNT (BEAKER) (test 773 K/CU MM 150-450 H code = 756) MEAN PLATELET VOLUME (BEAKER) 9.2 fL 9.4-12.4 L (test code = 754) NUCLEATED RED BLOOD CELLS 0 /100 WBC 0-0 (BEAKER) (test code = 413) NEUTROPHILS RELATIVE PERCENT 56 % (BEAKER) (test code = 429) LYMPHOCYTES RELATIVE PERCENT 26 % (BEAKER) (test code = 430) MONOCYTES RELATIVE PERCENT 12 % (BEAKER) (test code = 431) EOSINOPHILS RELATIVE PERCENT 4 % (BEAKER) (test code = 432) BASOPHILS RELATIVE PERCENT 1 % (BEAKER) (test code = 437) NEUTROPHILS ABSOLUTE COUNT 4.88 K/ L 1.78-5.38 (BEAKER) (test code = 670) LYMPHOCYTES ABSOLUTE COUNT 2.22 K/ L 1.32-3.57 (BEAKER) (test code = 414) MONOCYTES ABSOLUTE COUNT (BEAKER) 1.03 K/ L 0.30-0.82 H (test code = 415) EOSINOPHILS ABSOLUTE COUNT 0.38 K/ L 0.04-0.54 (BEAKER) (test code = 416) BASOPHILS ABSOLUTE COUNT (BEAKER) 0.11 K/ L 0.01-0.08 H (test code = 417) IMMATURE GRANULOCYTES-RELATIVE 0.90 % 0.00-1.00 PERCENT (BEAKER) (test code = 2801) Blood gas, [id number] 04:55:10 Test Item Value Reference Range Interpretation Comments pH, Arterial (test code 7.46 7.35-7.45 H = 2744-1) pCO2, Arterial (test 46 See_Comment H [Autom ated message] code = 2019-8) The system [facility] generated this result transmit claudio reference range : 35 - 45 mm Hg. The reference range was not used to interpret this result as normal/abnormal . pO2, Arterial (test 152 See_Comment H [Automa claudio message] code = 2703-7) The system [facility] generated this result transmit claudio reference range : 80 - 90 mm Hg. The reference range was not used to interpret this result as normal/abnormal . O2 Sat, Arterial (test 99.0 % 96.0-97.0 H code = 2708-6) HCO3, Arterial (test 32 mmol/L 21-29 H code = 1960-4) Base Excess, Arterial 7.4 mmol/L -2.0-3.0 H (test code = 1925-7) Patient Temperature 38.0 (test code = 8310-5) FIO2 (test code = 1819) 35 Lab Interpretation Abnormal (test code = 30486-7) [facility], [id number] 04:55:10 Test Item Value Reference Range Interpretation Comments pH, Arterial (test code 7.46 7.35-7.45 H = 2744-1) pCO2, Arterial (test 46 See_Comment H [Autom ated message] code = 2019) The system [facility] generated this result transmit claudio reference range : 35 - 45 mm Hg. The reference range was not used to interpret this result as normal/abnormal . pO2, Arterial (test 152 See_Comment H [Automa claudio message] code = 2703-7) The system [facility] generated this result transmit claudio reference range : 80 - 90 mm Hg. The reference range was not used to interpret this result as normal/abnormal . O2 Sat, Arterial (test 99.0 % 96.0-97.0 H code = 2708-6) HCO3, Arterial (test 32 mmol/L 21-29 H code = 1960-4) Base Excess, Arterial 7.4 mmol/L -2.0-3.0 H (test code = 1925-7) Patient Temperature 38.0 (test code = 8310-5) FIO2 (test code = 1819) 35 Lab Interpretation Abnormal (test code = 75400-8) [facility] [id number] 04:55:10 Test Item Value Reference Range Interpretation Comments PH ARTERIAL (BEAKER) (test code = 7.46 7.35-7.45 H 383) PCO2 ARTERIAL (BEAKER) (test code 46 mm Hg 35-45 H = 384) PO2 ARTERIAL (BEAKER) (test code = 152 mm Hg 80-90 H 385) O2 SATURATION ARTERIAL (BEAKER) 99.0 % 96.0-97.0 H (test code = 386) HCO3 ARTERIAL (BEAKER) (test code 32 mmol/L 21-29 H = 388) BASE EXCESS ARTERIAL (BEAKER) 7.4 mmol/L -2.0-3.0 H (test code = 387) PATIENT TEMPERATURE (BEAKER) (test 38.0 code = 1818) FIO2 (BEAKER) (test code = 1819) 35.0 [id number] 04:44:58 Test Item Value Reference Range Interpretation Comments MAGNESIUM (BEAKER) (test code = 1.9 mg/dL 1.6-2.6 627) Roll Icer ID - MALOU [id number] 04:44:58 Test Item Value Reference Range Interpretation Comments PHOSPHORUS (BEAKER) (test code = 4.7 mg/dL 2.3-4.7 604) Roll Icer ID - MALOU LBASIC METABOLIC [id number] 04:44:57 Test Item Value Reference Range Interpretation Comments SODIUM (BEAKER) 139 meq/L 136-145 (test code = 381) POTASSIUM 3.6 meq/L 3.5-5.1 (BEAKER) (test code = 379) CHLORIDE (BEAKER) 101 meq/L 98-107 (test code = 382) CO2 (BEAKER) 31 meq/L 22-29 H (test code = 355) BLOOD UREA 30 mg/dL 7-21 H NITROGEN (BEAKER) (test code = 354) CREATININE 0.68 mg/dL 0.57-1.25 (BEAKER) (test code = 358) GLUCOSE RANDOM 115 mg/dL 70-105 H (BEAKER) (test code = 652) CALCIUM (BEAKER) 9.8 mg/dL 8.4-10.2 (test code = 697) EGFR (BEAKER) 122 Interpretatio n of eGFR (test code = mL/min/1.73 values Stage De scription 1092) sq m Result G1 Tyra l or high >=90 G2 Mildly decreased 60-89 G3a Mildl y to moderately 45-5 9 G3b Moderately to s everely 30-44 G4 Severl y decreased 15-29 G5 Kidney failure <15Reported eGF R is based on the CKD-EPI 2020 equation that d oes not use a race coefficientEsti mated GFR is not as accur ate as Creatinine Papi sandor in predicting glom erular filtration rate . Estimated GFR is not appl icable for dialysis patien ts Roll Icer ID - PIAYA LPOCT-GLUCOSE [id number] 00:37:47 Test Item Value Reference Range Interpretation Comments POC-GLUCOSE METER 129 mg/dL 70-110 H : TESTED A T [facility] 6720 ([employer] (test code = [facility], 1538) [address]: Roll Icer/Techni carroll ID = [id number] for Lisseth Sellers POCT-GLUCOSE [id number] 17:57:15 Test Item Value Reference Range Interpretation Comments POC-GLUCOSE METER 107 mg/dL 70-110 : TESTED A T [facility] 6720 ([employer] (test code = [facility] [employer] [facility], 1538) [address]: Roll Icer/Techni carroll ID = [id number] for Sa olivo (contract)[employer] Urine [id number] 14:59:08 Test Item Value Reference Range Interpretation Comments Result (test code = 6463-4) No [facility] [id number] 14:59:08 Test Item Value Reference Range Interpretation Comments Result (test code = 6463-4) No growth [facility]2022-03-24 13:45:36 Test Item Value Reference Interpretation Comments Range SARS-COV2/RT-PCR Negative Negative The SARS-Co V-2 (test code = target nucleic 58264-3) acids are not detected in thi s specimen. Negat jeison results do not preclude SARS-C oV-2 infection and should not be u sed as the sole bas is for patient management decisions. Nega tive results must be combined with clinical observations, patient history , and epidemiolog ical information. A false negative result may occu r if a specimen is improperly collected, transported or handled. This S ARS CoV-2 test is a rapid, real-francisco e RT-PCR test intended for th e qualitative detection of nucleic acid fr om SARS-CoV-2 in a nasopharyngeal swab specimen colle claudio from individual s suspected of COVID-19 by the ir healthcare provider. CHRISTINA (test code = This test has been CHRISTINA) authorized by FDA under an EUA for use by authorized laboratories. This test is only authorized for the duration of the declaration that circumstances exist justifying the authorization of emergency use of in vitro diagnostic tests for detection and/or diagnosis of COVID-19 under Section 564(b)(1) of the Federal Food, Drug and Cosmetic Act, 21 U.S.C. 360bbb-3(b)(1), unless the authorization is terminated or revoked sooner. Fact Sheet for Healthcare Providers: https://www.[employer]/Documents/Xp ert%20Xpress%20SAR S%20CoV-2/Fact%20S heets/302-3802%20S ARS-COV-2%20HEALTH CARE%20PROVIDERS%2 0FACT%20SHEET.pdf Fact Sheet for Healthcare Patients: https://www.[employer]/Documents/Xp ert%20Xpress%20SAR S%20CoV-2/Fact%20S heets/302-3801%20S ARS-COV-2%20PATIEN T%20FACT%20SHEET.p df Lab Interpretation Normal (test code = 69495-2) [facility]omatic [facility]2022-03-24 13:45:36 Test Item Value Reference Interpretation Comments Range SARS-COV2/RT-PCR Negative Negative The SARS-Co V-2 (test code = target nucleic 41523-5) acids are not detected in thi s specimen. Negat jeison results do not preclude SARS-C oV-2 infection and should not be u sed as the sole bas is for patient management decisions. Nega tive results must be combined with clinical observations, patient history , and epidemiolog ical information. A false negative result may occu r if a specimen is improperly collected, transported or handled. This S ARS CoV-2 test is a rapid, real-francisco e RT-PCR test intended for th e qualitative detection of nucleic acid fr om SARS-CoV-2 in a nasopharyngeal swab specimen collec claudio from individual s suspected of COVID-19 by the ir healthcare provider. CHRISTINA (test code = This test has been CHRISTINA) authorized by FDA under an EUA for use by authorized laboratories. This test is only authorized for the duration of the declaration that circumstances exist justifying the authorization of emergency use of in vitro diagnostic tests for detection and/or diagnosis of COVID-19 under Section 564(b)(1) of the Federal Food, Drug and Cosmetic Act, 21 U.S.C. 360bbb-3(b)(1), unless the authorization is terminated or revoked sooner. Fact Sheet for Healthcare Providers: https://www.[employer]/Documents/Xp ert%20Xpress%20SAR S%20CoV-2/Fact%20S heets/302-3802%20S ARS-COV-2%20HEALTH CARE%20PROVIDERS%2 0FACT%20SHEET.pdf Fact Sheet for Healthcare Patients: https://www.[employer]/Documents/Xp ert%20Xpress%20SAR S%20CoV-2/Fact%20S heets/302-3801%20S ARS-COV-2%20PATIEN T%20FACT%20SHEET.p df Lab Interpretation Normal (test code = 65662-0) [facility])2022-03-24 13:45:36 Test Item Value Reference Range Interpretation Comments SARS-COV2/RT-PCR Negative Negative The SARS-Co V-2 target (test code = nucleic acids a re not 8689405) detected in thi s specimen. Negative result s do not preclude SARS-C oV-2 infection and s hould not be used as the samantha e basis for patient managem ent decisions. Nega tive results must be combine d with clinical observ ations, patient history , and epidemiological information. A false negativ e result may occur if a spec imen is improperly raudel ected, transported or handled. This SARS CoV-2 test is a rapid, real-time RT-PC R test intended for th e qualitative detection of nu cleic acid from SARS-CoV-2 in a nasopharyngeal swab specimen collected from individuals suspected of CO VID-19 by their healthcar e provider. This test has been authorized by FDA under an EUA for use by authorized laboratories. This test is only authorized for the duration of the declaration that circumstances exist justifying the authorization of emergency use of in vitro diagnostic tests for detection and/or diagnosis of COVID-19 under Section 564(b)(1) of the Federal Food, Drug and Cosmetic Act, 21 U.S.C. 360bbb-3(b)(1), unless the authorization is terminated or revoked sooner. Fact Sheet for Healthcare Providers: https://www.[employer]/Documents/Xpert%20Xpress%20SARS%20CoV-2/Fact%20Sheets/302-3802%36DJIC-WVG-7%20 HEALTHCARE%20PROVIDERS%20FACT%20SHEET.pdf Fact Sheet for Healthcare Patients: https://www.[employer]/Documents/Xpert%20Xp ress%20SARS%20CoV-2/Fact%20Sheets/3023801%05JFVE-ABR-1%20PATIENT%20FACT%20SHEET .[id number] 13:33:15 Test Item Value Reference Range Interpretation Comments PHOSPHORUS (BEAKER) (test code = 5.1 mg/dL 2.3-4.7 H 604) Roll Icer ID - MARCOBASIC METABOLIC [id number] 13:33:14 Test Item Value Reference Range Interpretation Comments SODIUM (BEAKER) 143 meq/L 136-145 (test code = 381) POTASSIUM 3.8 meq/L 3.5-5.1 (BEAKER) (test code = 379) CHLORIDE (BEAKER) 102 meq/L 98-107 (test code = 382) CO2 (BEAKER) 28 meq/L 22-29 (test code = 355) BLOOD UREA 24 mg/dL 7-21 H NITROGEN (BEAKER) (test code = 354) CREATININE 0.68 mg/dL 0.57-1.25 (BEAKER) (test code = 358) GLUCOSE RANDOM 116 mg/dL 70-105 H (BEAKER) (test code = 652) CALCIUM (BEAKER) 10.0 mg/dL 8.4-10.2 (test code = 697) EGFR (RADHAAKER) 122 Interpretatio n of eGFR (test code = mL/min/1.73 values Stage De scription 1092) sq m Result G1 Tyra l or high >=90 G2 Mildly decreased 60-89 G3a Mildl y to moderately 45-5 9 G3b Moderately to s everely 30-44 G4 Severl y decreased 15-29 G5 Kidney failure <15Reported eGF R is based on the CKD-EPI 2020 equation that d oes not use a race coefficientEsti mated GFR is not as accur ate as Creatinine Papi sandor in predicting glom erular filtration rate . Estimated GFR is not appl icable for dialysis patien ts Roll Icer ID - [id number] 13:33:14 Test Item Value Reference Range Interpretation Comments MAGNESIUM (DORIS) (test code = 2.2 mg/dL 1.6-2.6 627) Roll Icer ID - Yahairalatrellia pneumoniae [id number] 09:49:14 Test Item Value Reference Interpretation Comments Range Source BAL (test code = ) C. NOT DETECTED REFERENCE RANGE : NOT DETECTED pneumoniae, This test was d eveloped and PCR (test its analytical code = performanceEDUSr actPudding Media [id number]) have been deter mined by [employer].It has not been cleared or appr abad by FDA. This assay hasb een validated pursuant to the CLIA regulations and isused for clinical purpos es. CHRISTINA (test Performing Lab code = CHRISTINA) *QDID [employer] [address] [address] Rochelle Love MD, PhD [facility] [id number] 09:49:14 Test Item Value Reference Interpretation Comments Range Source BAL (test code = ) C. NOT DETECTED REFERENCE RANGE : NOT DETECTED pneumoniae, This test was d eveloped and PCR (test its analytical code = performancechar acteristics [id number]) have been deter mined by [facility].It has not been cleared or appr abad by FDA. This assay hasb een validated pursuant to the CLIA regulations and isused for clinical purpos es. CHRISTINA (test Performing Lab code = CHRISTINA) *QDID [facility] [address] [place] [address] Rochelle Love MD, PhD [facility] HospitalRAD, CHEST, 1 VIEW, NON [id number] 08:14:00Reason for exam:->intuabted, pneumothorax ,s/p CTShould this be performed at the bedside?->Yes[facility] : 1985 Sex: MFINAL REPORT Chest, 1 view. History: Intubated. Comparison: 03/23/2022. Impression:Endotracheal tube identified in stable position. Enteric tube noted coursing below the diaphragm. There are stable appearing interstitial opacities present bilaterally with a lower lung zone predominance. Blunting of the costophrenic angles and small suspected. There is no evidence for pneumothorax. The cardiomediastinal silhouette is stable in appearance. No acute osseous abnormalities identified. Signed: Jarett Arreola MDReport Verified Date/Time: 03/24/2022 08:14:54 POCT-GLUCOSE [id number] 06:49:38 Test Item Value Reference Range Interpretation Comments POC-GLUCOSE METER 116 mg/dL 70-110 H : TESTED A T [facility] 6720 (BEAKER) (test code = [facility], 1538) [address]: Roll Icer/Techni carroll ID = [id number] for Ce gretchen, Lisseth BLOOD GAS, [id number] 05:49:19 Test Item Value Reference Range Interpretation Comments PH ARTERIAL (BEAKER) (test code = 7.51 7.35-7.45 H 383) PCO2 ARTERIAL (BEAKER) (test code 36 mm Hg 35-45 = 384) PO2 ARTERIAL (BEAKER) (test code = 143 mm Hg 80-90 H 385) O2 SATURATION ARTERIAL (BEAKER) 99.0 % 96.0-97.0 H (test code = 386) HCO3 ARTERIAL (BEAKER) (test code 28 mmol/L 21-29 = 388) BASE EXCESS ARTERIAL (BEAKER) 5.3 mmol/L -2.0-3.0 H (test code = 387) PATIENT TEMPERATURE (BEAKER) (test 37.5 code = 1818) FIO2 (BEAKER) (test code = 1819) 50 CALCIUM, [id number] 05:15:38 Test Item Value Reference Range Interpretation Comments CALCIUM IONIZED (BEAKER) (test 1.08 mmol/L 1.12-1.27 L code = 698) PH, BLOOD (BEAKER) (test code = 7.52 1810) VITAMIN [id number] 04:54:47 Test Item Value Reference Range Interpretation Comments VITAMIN B12 (BEAKER) (test code = 968 pg/mL 213-816 H 774) Roll Icer ID - [id number] 04:54:47 Test Item Value Reference Range Interpretation Comments FERRITIN (BEAKER) (test code = 201.77 ng/mL 5.00-275.00 361) Roll Icer ID - MARCOCBC W/PLT COUNT & AUTO [id number] 04:51:30 Test Item Value Reference Range Interpretation Comments WHITE BLOOD CELL COUNT (BEAKER) 7.9 K/ L 3.5-10.5 (test code = 775) RED BLOOD CELL COUNT (BEAKER) 3.36 M/ L 4.63-6.08 L (test code = 761) HEMOGLOBIN (BEAKER) (test code = 10.0 GM/DL 13.7-17.5 L 410) HEMATOCRIT (BEAKER) (test code = 31.3 % 40.1-51.0 L 411) MEAN CORPUSCULAR VOLUME (BEAKER) 93 fL 79-92 H (test code = 753) MEAN CORPUSCULAR HEMOGLOBIN 29.8 pg 25.7-32.2 (BEAKER) (test code = 751) MEAN CORPUSCULAR HEMOGLOBIN CONC 31.9 GM/DL 32.3-36.5 L (BEAKER) (test code = 752) RED CELL DISTRIBUTION WIDTH 14.6 % 11.6-14.4 H (BEAKER) (test code = 412) PLATELET COUNT (BEAKER) (test 687 K/CU MM 150-450 H code = 756) MEAN PLATELET VOLUME (BEAKER) 9.3 fL 9.4-12.4 L (test code = 754) NUCLEATED RED BLOOD CELLS 0 /100 WBC 0-0 (BEAKER) (test code = 413) NEUTROPHILS RELATIVE PERCENT 56 % (BEAKER) (test code = 429) LYMPHOCYTES RELATIVE PERCENT 26 % (BEAKER) (test code = 430) MONOCYTES RELATIVE PERCENT 12 % (BEAKER) (test code = 431) EOSINOPHILS RELATIVE PERCENT 4 % (BEAKER) (test code = 432) BASOPHILS RELATIVE PERCENT 1 % (BEAKER) (test code = 437) NEUTROPHILS ABSOLUTE COUNT 4.45 K/ L 1.78-5.38 (BEAKER) (test code = 670) LYMPHOCYTES ABSOLUTE COUNT 2.07 K/ L 1.32-3.57 (BEAKER) (test code = 414) MONOCYTES ABSOLUTE COUNT (BEAKER) 0.91 K/ L 0.30-0.82 H (test code = 415) EOSINOPHILS ABSOLUTE COUNT 0.29 K/ L 0.04-0.54 (BEAKER) (test code = 416) BASOPHILS ABSOLUTE COUNT (BEAKER) 0.11 K/ L 0.01-0.08 H (test code = 417) IMMATURE GRANULOCYTES-RELATIVE 0.80 % 0.00-1.00 PERCENT (BEAKER) (test code = 2801) RETICULOCYTE [id number] 04:51:11 Test Item Value Reference Range Interpretation Comments RETICULOCYTE COUNT PCT (BEAKER) (test 4.7 % 0.5-1.8 H code = 575) Roll Icer ID - [id number] 04:27:21 Test Item Value Reference Range Interpretation Comments MAGNESIUM (BEAKER) (test code = 2.2 mg/dL 1.6-2.6 627) Roll Icer ID - [id number] 04:27:21 Test Item Value Reference Range Interpretation Comments PHOSPHORUS (BEAKER) (test code = 4.1 mg/dL 2.3-4.7 604) Roll Icer ID - KAMRANOBASIC METABOLIC [id number] 04:27:20 Test Item Value Reference Range Interpretation Comments SODIUM (BEAKER) 141 meq/L 136-145 (test code = 381) POTASSIUM 3.4 meq/L 3.5-5.1 L (BEAKER) (test code = 379) CHLORIDE (BEAKER) 102 meq/L 98-107 (test code = 382) CO2 (BEAKER) 25 meq/L 22-29 (test code = 355) BLOOD UREA 24 mg/dL 7-21 H NITROGEN (BEAKER) (test code = 354) CREATININE 0.66 mg/dL 0.57-1.25 (BEAKER) (test code = 358) GLUCOSE RANDOM 123 mg/dL 70-105 H (BEAKER) (test code = 652) CALCIUM (BEAKER) 9.5 mg/dL 8.4-10.2 (test code = 697) EGFR (BEAKER) 123 Interpretatio n of eGFR (test code = mL/min/1.73 values Stage De scription 1092) sq m Result G1 Tyra l or high >=90 G2 Mildly decreased 60-89 G3a Mildl y to moderately 45-5 9 G3b Moderately to s everely 30-44 G4 Severl y decreased 15-29 G5 Kidney failure <15Reported eGF R is based on the CKD-EPI 2020 equation that d oes not use a race coefficientEsti mated GFR is not as accur ate as Creatinine Papi patten in predicting glom erular filtration rate . Estimated GFR is not appl icable for dialysis patien ts Roll Icer ID - CHRISTINA, TIBC, % SAT. (WITHOUT FERRITIN)2022-03-24 04:26:53 Test Item Value Reference Range Interpretation Comments IRON (BEAKER) (test code = 547) 36.0 ug/dL 40.0-160.0 L TOTAL IRON BINDING CAPACITY 261 ug/dL 250-450 (BEAKER) (test code = 769) IRON % SATURATION (2) (BEAKER) 14 % 20-55 L (test code = 2590) Roll Icer ID - CRISELDACT-GLUCOSE [id number] 00:30:20 Test Item Value Reference Range Interpretation Comments POC-GLUCOSE METER 121 mg/dL 70-110 H : TESTED A T [facility] 6720 (BEAKER) (test code = [facility] [place], 1538) [address]: Roll Icer/Techni carroll ID = [id number] for Ce Lisseth godinez POCT-GLUCOSE [id number] 18:06:57 Test Item Value Reference Range Interpretation Comments POC-GLUCOSE METER 123 mg/dL 70-110 H : TESTED A T [facility] 6720 (BEAKER) (test code = [facility] [place], 1538) [address]: Roll Icer/Techni carroll ID = [id number] for Po Mirna albrecht [id number] 17:36:23 Test Item Value Reference Range Interpretation Comments MAGNESIUM (BEAKER) (test code = 1.9 mg/dL 1.6-2.6 627) Roll Icer ID - [id number] 17:36:23 Test Item Value Reference Range Interpretation Comments PHOSPHORUS (BEAKER) (test code = 4.1 mg/dL 2.3-4.7 604) Roll Icer ID - BSBASIC METABOLIC [id number] 17:36:22 Test Item Value Reference Range Interpretation Comments SODIUM (BEAKER) 142 meq/L 136-145 (test code = 381) POTASSIUM 3.9 meq/L 3.5-5.1 (BEAKER) (test code = 379) CHLORIDE (BEAKER) 104 meq/L 98-107 (test code = 382) CO2 (BEAKER) 26 meq/L 22-29 (test code = 355) BLOOD UREA 21 mg/dL 7-21 NITROGEN (BEAKER) (test code = 354) CREATININE 0.69 mg/dL 0.57-1.25 (BEAKER) (test code = 358) GLUCOSE RANDOM 111 mg/dL 70-105 H (BEAKER) (test code = 652) CALCIUM (BEAKER) 9.6 mg/dL 8.4-10.2 (test code = 697) EGFR (BEAKER) 122 Interpretatio n of eGFR (test code = mL/min/1.73 values Stage De scription 1092) sq m Result G1 Tyra l or high >=90 G2 Mildly decreased 60-89 G3a Mildl y to moderately 45-5 9 G3b Moderately to s everely 30-44 G4 Severl y decreased 15-29 G5 Kidney failure <15Reported eGF R is based on the CKD-EPI 2020 equation that d oes not use a race coefficientEsti mated GFR is not as accur ate as Creatinine Papi patten in predicting glom erular filtration rate . Estimated GFR is not appl icable for dialysis patien ts Roll Icer ID - BSPOCT-GLUCOSE [id number] 11:53:19 Test Item Value Reference Range Interpretation Comments POC-GLUCOSE METER 123 mg/dL 70-110 H : TESTED A T [facility] 6720 ([employer] (test code = [facility], 1538) [address]: Roll Icer/Techni carroll ID = [id number] for Po Mirna albrecht RAD, CHEST, 1 VIEW, NON [id number] 11:29:00Reason for exam:->ett tube placementShould this be performed at the bedside?->Yes [facility] : 1985 Sex: MFINAL REPORT RAD, CHEST, 1 VIEW, NON DEPT INDICATION: ett tube placement COMPARISON: Prior day's exam FINDINGS: Portable frontal view of the chest. IMPRESSION: Support Lines: ET tube tip is 5 cm superior to akbar. Feeding tube descends below the diaphragm. Lungs and pleura: Lower lobe airspace disease and adjacent atelectasis, unchanged. No significant pneumothorax. Heart and mediast inum: Stable contours. Stable surgical changes. Additional findings: None. Signed: Justin Cramereport Verified Date/Time: 03/23/2022 11:29:27 Reading Location: [address] Reading Room aspergillus [id number] 10:30:40 Test Item Value Reference Range Interpretation Comments Scan Result (test code = See Scan Report [id number]) CHRISTINA (test code = CHRISTINA) See Scan Report [facility] Hospitalaspergillus [id number] 10:30:40 Test Item Value Reference Range Interpretation Comments Scan Result (test code = See Scan Report [id number]) CHRISTINA (test code = CHRISTINA) See Scan Report [facility] HospitalRAD, [facility]ST, 1 VIEW, NON [id number] 09:40:00Reason for exam:->intuabted, pneumothorax ,s/p CTShould this be performed at the bedside?->Yes[facility] : 1985 Sex: MFINAL REPORT RAD, CHEST, 1 VIEW, NON DEPT INDICATION: intuabted, pneumothorax ,s/p CT COMPARISON: Prior day's exam FINDINGS: Portable frontal view of the chest. IMPRESSION: Support Lines: ET tube tip is 6 cm superior to the akbar. Feeding tube descends below the diaphragm. Lungs andpleura: Bilateral effusions, decreased from prior exam. Decreased bilateral airspace opacities concerning for multifocal pneumonia versus multifocal edema. Pleural line at the left lung apex without significant pneumothorax. Heart and mediastinum: Stable contours. Stable surgical changes. Additional findings: None. Signed: Justin Cramer MDReport Verified Date/Time: 03/23/2022 09:40:52 Reading Location: [address] Reading Room POCT-GLUCOSE [id number] 07:10:33 Test Item Value Reference Range Interpretation Comments POC-GLUCOSE METER 125 mg/dL 70-110 H : [facility] ([facility]ER) (test code = [facility], 1538) [address]: Roll Icer/Techni carroll ID = [id number] for Tr Michell whitten BLOOD [id number] 06:00:42 Test Item Value Reference Range Interpretation Comments CULTURE (BEAKER) (test No growth in 5 days code = 1095) [id number] 04:11:45 Test Item Value Reference Range Interpretation Comments PHOSPHORUS (BEAKER) (test code = 3.9 mg/dL 2.3-4.7 604) Roll Icer ID - MARCOHEPATIC FUNCTION [id number] 04:11:45 Test Item Value Reference Range Interpretation Comments TOTAL PROTEIN (BEAKER) (test code = 7.1 gm/dL 6.0-8.3 770) ALBUMIN (BEAKER) (test code = 1145) 3.2 g/dL 3.5-5.0 L BILIRUBIN TOTAL (BEAKER) (test code 0.3 mg/dL 0.2-1.2 = 377) BILIRUBIN DIRECT (BEAKER) (test 0.1 mg/dL 0.1-0.5 code = 706) ALKALINE PHOSPHATASE (BEAKER) (test 124 U/L 40-150 code = 346) AST (SGOT) (BEAKER) (test code = 32 U/L 5-34 353) ALT (SGPT) (BEAKER) (test code = 63 U/L 6-55 H 347) Roll Icer ID - [id number] 04:11:44 Test Item Value Reference Range Interpretation Comments MAGNESIUM (BEAKER) (test code = 2.3 mg/dL 1.6-2.6 627) Roll Icer ID - MARCOBASIC METABOLIC [id number] 04:11:43 Test Item Value Reference Range Interpretation Comments SODIUM (BEAKER) 140 meq/L 136-145 (test code = 381) POTASSIUM 3.5 meq/L 3.5-5.1 (BEAKER) (test code = 379) CHLORIDE (BEAKER) 103 meq/L 98-107 (test code = 382) CO2 (BEAKER) 26 meq/L 22-29 (test code = 355) BLOOD UREA 20 mg/dL 7-21 NITROGEN (BEAKER) (test code = 354) CREATININE 0.67 mg/dL 0.57-1.25 (BEAKER) (test code = 358) GLUCOSE RANDOM 134 mg/dL 70-105 H (BEAKER) (test code = 652) CALCIUM (BEAKER) 9.2 mg/dL 8.4-10.2 (test code = 697) EGFR (BEAKER) 123 Interpretatio n of eGFR (test code = mL/min/1.73 values Stage De scription 1092) sq m Result G1 Tyra l or high >=90 G2 Mildly decreased 60-89 G3a Mildl y to moderately 45-5 9 G3b Moderately to s everely 30-44 G4 Severl y decreased 15-29 G5 Kidne y failure <15Reported eGF R is based on the CKD-EPI 2020 equation that d oes not use a race coefficientEsti mated GFR is not as accur ate as Creatinine Papi sandor in predicting glom erular filtration rate . Estimated GFR is not appl icable for dialysis patien ts Roll Icer ID - MARCOCBC W/PLT COUNT & AUTO [id number] 03:39:11 Test Item Value Reference Range Interpretation Comments WHITE BLOOD CELL COUNT (BEAKER) 7.9 K/ L 3.5-10.5 (test code = 775) RED BLOOD CELL COUNT (BEAKER) 3.19 M/ L 4.63-6.08 L (test code = 761) HEMOGLOBIN (BEAKER) (test code = 9.3 GM/DL 13.7-17.5 L 410) HEMATOCRIT (BEAKER) (test code = 29.2 % 40.1-51.0 L 411) MEAN CORPUSCULAR VOLUME (BEAKER) 92 fL 79-92 (test code = 753) MEAN CORPUSCULAR HEMOGLOBIN 29.2 pg 25.7-32.2 (BEAKER) (test code = 751) MEAN CORPUSCULAR HEMOGLOBIN CONC 31.8 GM/DL 32.3-36.5 L (BEAKER) (test code = 752) RED CELL DISTRIBUTION WIDTH 14.8 % 11.6-14.4 H (BEAKER) (test code = 412) PLATELET COUNT (BEAKER) (test 652 K/CU MM 150-450 H code = 756) MEAN PLATELET VOLUME (BEAKER) 9.0 fL 9.4-12.4 L (test code = 754) NUCLEATED RED BLOOD CELLS 0 /100 WBC 0-0 (BEAKER) (test code = 413) NEUTROPHILS RELATIVE PERCENT 65 % (BEAKER) (test code = 429) LYMPHOCYTES RELATIVE PERCENT 20 % (BEAKER) (test code = 430) MONOCYTES RELATIVE PERCENT 10 % (BEAKER) (test code = 431) EOSINOPHILS RELATIVE PERCENT 3 % (BEAKER) (test code = 432) BASOPHILS RELATIVE PERCENT 1 % (BEAKER) (test code = 437) NEUTROPHILS ABSOLUTE COUNT 5.08 K/ L 1.78-5.38 (BEAKER) (test code = 670) LYMPHOCYTES ABSOLUTE COUNT 1.60 K/ L 1.32-3.57 (BEAKER) (test code = 414) MONOCYTES ABSOLUTE COUNT (BEAKER) 0.78 K/ L 0.30-0.82 (test code = 415) EOSINOPHILS ABSOLUTE COUNT 0.26 K/ L 0.04-0.54 (BEAKER) (test code = 416) BASOPHILS ABSOLUTE COUNT (BEAKER) 0.08 K/ L 0.01-0.08 (test code = 417) IMMATURE GRANULOCYTES-RELATIVE 0.60 % 0.00-1.00 PERCENT (BEAKER) (test code = 2801) BLOOD GAS, [id number] 03:23:32 Test Item Value Reference Range Interpretation Comments PH ARTERIAL (BEAKER) (test code = 7.51 7.35-7.45 H 383) PCO2 ARTERIAL (BEAKER) (test code 38 mm Hg 35-45 = 384) PO2 ARTERIAL (BEAKER) (test code = 131 mm Hg 80-90 H 385) O2 SATURATION ARTERIAL (BEAKER) 98.9 % 96.0-97.0 H (test code = 386) HCO3 ARTERIAL (BEAKER) (test code 30 mmol/L 21-29 H = 388) BASE EXCESS ARTERIAL (BEAKER) 6.5 mmol/L -2.0-3.0 H (test code = 387) PATIENT TEMPERATURE (BEAKER) (test 37.0 code = 1818) FIO2 (BEAKER) (test code = 1819) 45.0 CALCIUM, [id number] 03:23:31 Test Item Value Reference Range Interpretation Comments CALCIUM IONIZED (BEAKER) (test 1.09 mmol/L 1.12-1.27 L code = 698) PH, BLOOD (BEAKER) (test code = 7.51 1810) POCT-GLUCOSE [id number] 00:28:04 Test Item Value Reference Range Interpretation Comments POC-GLUCOSE METER 130 mg/dL 70-110 H : TESTED A T [facility] 6720 (BEAKER) (test code = [place], 1538) [address]: Roll Icer/Techni carroll ID = [id number] for Ce gretchen, Lisseth Urinalysis w/Microscopic + Reflex to [id number] 21:03:03 Test Item Value Reference Range Interpretation Comments Color, UA (test code Colorless = 5778-6) Clarity, UA (test Clear code = 5767-9) Specific Mobile, UA 1.013 1.001-1.035 (test code = 5811-5) pH, UA (test code = 7.0 5.0-8.0 5803-2) Protein, UA (test Negative Negative code = 39047-1) Glucose, UA (test Negative Negative code = 365) Ketones, UA (test Negative Negative code = 2514-8) Bilirubin, UA (test Negative Negative code = 14186-9) Blood, UA (test code Moderate Negative A = 85519-2) Nitrite, UA (test Negative Negative code = 5802-4) Leukocytes, UA (test Small Negative A code = 5799-2) Urobilinogen, UA 0.2 0.2-1.0 (test code = 03727-2) RBC, UA (test code = 62 See_Comment [Autom ated 80466-0) message] The system which generated this result transmitted reference range : /HPF. The reference range was not used to interpret this result as normal/abnormal . WBC, UA (test code = 177 See_Comment [Autom ated 5821-4) message] The system which generated this result transmitted reference range : /HPF. The reference range was not used to interpret this result as normal/abnormal . Mucus (test code = Rare 8247-9) Hyaline Casts, UA 6 See_Comment [Automate d (test code = 42275-7) messag e] The system which generated this result transmitted reference range : /LPF. The reference range was not used to interpret this result as normal/abnormal . Specimen Source (test code = 2795) CHRISTINA (test code = CHRISTINA) Roll Icer ID - [auto]Roll Icer ID - tech Lab Interpretation Abnormal (test code = 64954-2) [facility] + Reflex to Culture 2022-03-22 21:03:03 Test Item Value Reference Range Interpretation Comments Color, UA (test code Colorless = 5778-6) Clarity, UA (test Clear code = 5767-9) Specific Mobile, UA 1.013 1.001-1.035 (test code = 5811-5) pH, UA (test code = 7.0 5.0-8.0 5803-2) Protein, UA (test Negative Negative code = 83500-0) Glucose, UA (test Negative Negative code = 365) Ketones, UA (test Negative Negative code = 2514-8) Bilirubin, UA (test Negative Negative code = 40753-3) Blood, UA (test code Moderate Negative A = 35038-4) Nitrite, UA (test Negative Negative code = 5802-4) Leukocytes, UA (test Small Negative A code = 5799-2) Urobilinogen, UA 0.2 0.2-1.0 (test code = 64623-8) RBC, UA (test code = 62 See_Comment [Autom ated 73819-7) message] The system which generated this result transmitted reference range : /HPF. The reference range was not used to interpret this result as normal/abnormal . WBC, UA (test code = 177 See_Comment [Autom ated 5821-4) message] The system which generated this result transmitted reference range : /HPF. The reference range was not used to interpret this result as normal/abnormal . Mucus (test code = Rare 8247-9) Hyaline Casts, UA 6 See_Comment [Automate d (test code = 37170-1) messag e] The system which generated this result transmitted reference range : /LPF. The reference range was not used to interpret this result as normal/abnormal . Specimen Source (test code = 2795) CHRISTINA (test code = CHRISTINA) Roll Icer ID - [auto]Roll Icer ID - tech Lab Interpretation Abnormal (test code = 22301-1) [facility]/ REFLEX URINE [id number] 21:03:03 Test Item Value Reference Range Interpretation Comments COLOR (BEAKER) (test code = 470) Colorless CLARITY (BEAKER) (test code = 469) Clear SPECIFIC GRAVITY UA (BEAKER) (test 1.013 1.001-1.035 code = 468) PH UA (BEAKER) (test code = 467) 7.0 5.0-8.0 PROTEIN UA (BEAKER) (test code = Negative Negative 464) GLUCOSE UA (BEAKER) (test code = Negative Negative 365) KETONES UA (BEAKER) (test code = Negative Negative 371) BILIRUBIN UA (BEAKER) (test code = Negative Negative 462) BLOOD UA (BEAKER) (test code = 461) Moderate Negative A NITRITE UA (BEAKER) (test code = Negative Negative 465) LEUKOCYTE ESTERASE UA (BEAKER) Small Negative A (test code = 466) UROBILINOGEN UA (BEAKER) (test code 0.2 0.2-1.0 = 463) RBC UA (BEAKER) (test code = 519) 62 /HPF WBC UA (BEAKER) (test code = 520) 177 /HPF MUCUS (BEAKER) (test code = 1574) Rare HYALINE CASTS (BEAKER) (test code = 6 /LPF 514) SOURCE(BEAKER) (test code = 2795) Roll Icer ID - [auto]Roll Icer ID - techPOCT-GLUCOSE [id number] 18:24:20 Test Item Value Reference Range Interpretation Comments POC-GLUCOSE METER 119 mg/dL 70-110 H : TESTED A T [facility] 6720 (BEAKER) (test code = GRADY Mcgarry [facility], 1538) [address]: Roll Icer/Techni carroll ID = [id number] for Po Mirna albrecht [id number] 18:20:41 Test Item Value Reference Range Interpretation Comments PROCALCITONIN (BEAKER) (test code = < ng/mL <0.05 3036) SEPSIS RISK (ng/mL)Low: 0.05-0.50Intermediate: 0.51-2.00High: >=2.01Lactic Acid, [id number] 18:16:27 Test Item Value Reference Range Interpretation Comments Lactate, Art (test 1.1 mmol/L 0.5-2.2 Specimen code = 2874) slightly hemolyzed CHRISTINA (test code = CHRISTINA) Roll Icer ID - BS Lab Interpretation Normal (test code = 54166-3) [facility] HospitalL[facility], [id number] 18:16:27 Test Item Value Reference Range Interpretation Comments Lactate, Art (test 1.1 mmol/L 0.5-2.2 Specimen code = 2874) slightly hemolyzed CHRISTINA (test code = CHRISTINA) Roll Icer ID - BS Lab Interpretation Normal (test code = 21202-9) [facility] HospitalLACTIC ACID, [id number] 18:16:27 Test Item Value Reference Range Interpretation Comments LACTATE BLOOD 1.1 mmol/L 0.5-2.2 Specimen sligh tly ARTERIAL (2) (BEAKER) hemoly zed (test code = 2874) Roll Icer ID - [id number] 18:14:32 Test Item Value Reference Range Interpretation Comments PHOSPHORUS (BEAKER) (test code = 3.3 mg/dL 2.3-4.7 604) Roll Icer ID - BSBASIC METABOLIC [id number] 18:14:31 Test Item Value Reference Range Interpretation Comments SODIUM (BEAKER) 141 meq/L 136-145 (test code = 381) POTASSIUM 3.9 meq/L 3.5-5.1 (BEAKER) (test code = 379) CHLORIDE (BEAKER) 104 meq/L 98-107 (test code = 382) CO2 (BEAKER) 29 meq/L 22-29 (test code = 355) BLOOD UREA 18 mg/dL 7-21 NITROGEN (BEAKER) (test code = 354) CREATININE 0.66 mg/dL 0.57-1.25 (BEAKER) (test code = 358) GLUCOSE RANDOM 121 mg/dL 70-105 H (BEAKER) (test code = 652) CALCIUM (BEAKER) 9.3 mg/dL 8.4-10.2 (test code = 697) EGFR (BEAKER) 123 Interpretatio n of eGFR (test code = mL/min/1.73 values Stage De scription 1092) sq m Result G1 Tyra l or high >=90 G2 Mildly decreased 60-89 G3a Mildl y to moderately 45-5 9 G3b Moderately to s everely 30-44 G4 Severl y decreased 15-29 G5 Kidney failure <15Reported eGF R is based on the CKD-EPI 2020 equation that d oes not use a race coefficientEsti mated GFR is not as accur ate as Creatinine Papi patten in predicting glom erular filtration rate . Estimated GFR is not appl icable for dialysis patien ts Roll Icer ID - [id number] 18:14:31 Test Item Value Reference Range Interpretation Comments MAGNESIUM (BEAKER) (test code = 1.9 mg/dL 1.6-2.6 627) Roll Icer ID - BSPOCT-GLUCOSE [id number] 11:57:33 Test Item Value Reference Range Interpretation Comments POC-GLUCOSE METER 135 mg/dL 70-110 H : TESTED A T [facility] 6720 (BEAKER) (test code = GRADY Mcgarry [facility], 1538) [address]: Roll Icer/Techni carroll ID = [id number] for Po ss, Mirna Bacterial culture + gram [id number] 10:57:30 Test Item Value Reference Range Interpretation Comments Result (test code = 1+ Normal respiratory 6463-4) stacy present Gram Stain Result No organisms seen (test code = 1123) CHRISTINA (test code = CHRISTINA) [facility] HospitalBacterial culture + gram [id number] 10:57:30 Test Item Value Reference Range Interpretation Comments Result (test code = 1+ Normal respiratory 6463-4) stacy present Gram Stain Result No organisms seen (test code = 1123) CHRISTINA (test code = CHRISTINA) [facility] HospitalBRONCHIAL CULTURE + GRAM [id number] 10:57:30 Test Item Value Reference Range Interpretation Comments CULTURE (BEAKER) 1+ Normal respiratory (test code = 1095) stacy present GRAM STAIN RESULT No White blood cells (BEAKER) (test code = seen 1123) GRAM STAIN RESULT No organisms seen (BEAKER) (test code = 859198) RAD, CHEST, 1 VIEW, NON [id number] 09:53:00Reason for exam:->intuabted, pneumothorax ,s/p CTShould this be performed at the bedside?->Yes [facility] : 1985 Sex: MFINAL REPORT RAD, CHEST, 1 VIEW, NON DEPT INDICATION: intuabted, pneumothorax ,s/p CT COMPARISON: Prior day's exam FINDINGS: Portable frontal view of the chest. IMPRESSION: Support Lines: ET tube tip is 6 cm superior to the akbar. Feeding tube descends below the diaphragm. Lungs and pleura: Bilateral effusions, decreased from prior exam. Decreased bilateral airspace opacities concerning for multifocal pneumonia versus multifocal edema. Pleural line at the left lung apex without significant pneumothorax. Heart and mediastinum: Stable contours. Stable surgical changes. Additional findings: None. Signed: Justin Cramer MDReport Verified Date/Time: 03/22/2022 09:53:05 Reading Location: [address] Reading Room [id number] 04:45:15 Test Item Value Reference Range Interpretation Comments PHOSPHORUS (BEAKER) (test code = 4.0 mg/dL 2.3-4.7 604) Roll Icer ID - MARCOBASIC METABOLIC [id number] 04:45:14 Test Item Value Reference Range Interpretation Comments SODIUM (BEAKER) 140 meq/L 136-145 (test code = 381) POTASSIUM 3.5 meq/L 3.5-5.1 (BEAKER) (test code = 379) CHLORIDE (BEAKER) 102 meq/L 98-107 (test code = 382) CO2 (BEAKER) 28 meq/L 22-29 (test code = 355) BLOOD UREA 16 mg/dL 7-21 NITROGEN (BEAKER) (test code = 354) CREATININE 0.63 mg/dL 0.57-1.25 (BEAKER) (test code = 358) GLUCOSE RANDOM 126 mg/dL 70-105 H (BEAKER) (test code = 652) CALCIUM (BEAKER) 9.4 mg/dL 8.4-10.2 (test code = 697) EGFR (BEAKER) 124 Interpretatio n of eGFR (test code = mL/min/1.73 values Stage De scription 1092) sq m Result G1 Tyra l or high >=90 G2 Mildly decreased 60-89 G3a Mildl y to moderately 45-5 9 G3b Moderately to s everely 30-44 G4 Severl y decreased 15-29 G5 Kidney failure <15Reported eGF R is based on the CKD-EPI 2020 equation that d oes not use a race coefficientEsti mated GFR is not as accur ate as Creatinine Papi sandor in predicting glom erular filtration rate . Estimated GFR is not appl icable for dialysis patien ts Roll Icer ID - [id number] 04:45:14 Test Item Value Reference Range Interpretation Comments MAGNESIUM (BEAKER) (test code = 1.8 mg/dL 1.6-2.6 627) Roll Icer ID - MARCOCBC W/PLT COUNT & AUTO [id number] 04:40:50 Test Item Value Reference Range Interpretation Comments WHITE BLOOD CELL COUNT (BEAKER) 7.6 K/ L 3.5-10.5 (test code = 775) RED BLOOD CELL COUNT (BEAKER) 3.12 M/ L 4.63-6.08 L (test code = 761) HEMOGLOBIN (BEAKER) (test code = 9.2 GM/DL 13.7-17.5 L 410) HEMATOCRIT (BEAKER) (test code = 28.6 % 40.1-51.0 L 411) MEAN CORPUSCULAR VOLUME (BEAKER) 92 fL 79-92 (test code = 753) MEAN CORPUSCULAR HEMOGLOBIN 29.5 pg 25.7-32.2 (BEAKER) (test code = 751) MEAN CORPUSCULAR HEMOGLOBIN CONC 32.2 GM/DL 32.3-36.5 L (BEAKER) (test code = 752) RED CELL DISTRIBUTION WIDTH 15.0 % 11.6-14.4 H (BEAKER) (test code = 412) PLATELET COUNT (BEAKER) (test 654 K/CU MM 150-450 H code = 756) MEAN PLATELET VOLUME (BEAKER) 9.1 fL 9.4-12.4 L (test code = 754) NUCLEATED RED BLOOD CELLS 0 /100 WBC 0-0 (BEAKER) (test code = 413) NEUTROPHILS RELATIVE PERCENT 58 % (BEAKER) (test code = 429) LYMPHOCYTES RELATIVE PERCENT 25 % (BEAKER) (test code = 430) MONOCYTES RELATIVE PERCENT 11 % (BEAKER) (test code = 431) EOSINOPHILS RELATIVE PERCENT 3 % (BEAKER) (test code = 432) BASOPHILS RELATIVE PERCENT 1 % (BEAKER) (test code = 437) NEUTROPHILS ABSOLUTE COUNT 4.43 K/ L 1.78-5.38 (BEAKER) (test code = 670) LYMPHOCYTES ABSOLUTE COUNT 1.88 K/ L 1.32-3.57 (BEAKER) (test code = 414) MONOCYTES ABSOLUTE COUNT (BEAKER) 0.87 K/ L 0.30-0.82 H (test code = 415) EOSINOPHILS ABSOLUTE COUNT 0.26 K/ L 0.04-0.54 (BEAKER) (test code = 416) BASOPHILS ABSOLUTE COUNT (BEAKER) 0.08 K/ L 0.01-0.08 (test code = 417) IMMATURE GRANULOCYTES-RELATIVE 1.20 % 0.00-1.00 H PERCENT (BEAKER) (test code = 2801) CALCIUM, [id number] 04:20:32 Test Item Value Reference Range Interpretation Comments CALCIUM IONIZED (BEAKER) (test 1.09 mmol/L 1.12-1.27 L code = 698) PH, BLOOD (BEAKER) (test code = 7.51 1810) BLOOD GAS, [id number] 04:20:30 Test Item Value Reference Range Interpretation Comments PH ARTERIAL (BEAKER) (test code = 7.52 7.35-7.45 H 383) PCO2 ARTERIAL (BEAKER) (test code 42 mm Hg 35-45 = 384) PO2 ARTERIAL (BEAKER) (test code = 113 mm Hg 80-90 H 385) O2 SATURATION ARTERIAL (BEAKER) 98.5 % 96.0-97.0 H (test code = 386) HCO3 ARTERIAL (BEAKER) (test code 33 mmol/L 21-29 H = 388) BASE EXCESS ARTERIAL (BEAKER) 9.2 mmol/L -2.0-3.0 H (test code = 387) PATIENT TEMPERATURE (BEAKER) (test 36.9 code = 1818) FIO2 (BEAKER) (test code = 1819) 45.0 POCT-GLUCOSE [id number] 00:21:32 Test Item Value Reference Range Interpretation Comments POC-GLUCOSE METER 120 mg/dL 70-110 H : TESTED A T [facility] 6720 (BEAKER) (test code = GRADY Mcgarry [facility], 1538) [address]: Roll Icer/Techni carroll ID = [id number] for OR DANIELLENI POCT-GLUCOSE [id number] 18:08:59 Test Item Value Reference Range Interpretation Comments POC-GLUCOSE METER 119 mg/dL 70-110 H : TESTED A T [facility] 6720 (BEAKER) (test code [facility], = 1538) [address]: Roll Icer/Techni carroll ID = [id number] for Jo eleni (contract), Mary ash [id number] 15:55:34 Test Item Value Reference Range Interpretation Comments PHOSPHORUS (BEAKER) (test code = 4.0 mg/dL 2.3-4.7 604) Roll Icer ID - BSBASIC METABOLIC [id number] 15:55:33 Test Item Value Reference Range Interpretation Comments SODIUM (BEAKER) 143 meq/L 136-145 (test code = 381) POTASSIUM 3.7 meq/L 3.5-5.1 (BEAKER) (test code = 379) CHLORIDE (BEAKER) 102 meq/L 98-107 (test code = 382) CO2 (BEAKER) 31 meq/L 22-29 H (test code = 355) BLOOD UREA 15 mg/dL 7-21 NITROGEN (BEAKER) (test code = 354) CREATININE 0.65 mg/dL 0.57-1.25 (BEAKER) (test code = 358) GLUCOSE RANDOM 125 mg/dL 70-105 H (BEAKER) (test code = 652) CALCIUM (BEAKER) 9.1 mg/dL 8.4-10.2 (test code = 697) EGFR (BEAKER) 123 Interpretatio n of eGFR (test code = mL/min/1.73 values Stage De scription 1092) sq m Result G1 Tyra l or high >=90 G2 Mildly decreased 60-89 G3a Mildl y to moderately 45-5 9 G3b Moderately to s everely 30-44 G4 Severl y decreased 15-29 G5 Kidne y failure <15Reported eGF R is based on the CKD-EPI 2020 equation that d oes not use a race coefficientEsti mated GFR is not as accur ate as Creatinine Papi sandor in predicting glom erular filtration rate . Estimated GFR is not appl icable for dialysis patien ts Roll Icer ID - [id number] 15:55:33 Test Item Value Reference Range Interpretation Comments MAGNESIUM (BEAKER) (test code = 2.0 mg/dL 1.6-2.6 627) Roll Icer ID - BSPOCT-GLUCOSE [id number] 12:19:57 Test Item Value Reference Range Interpretation Comments POC-GLUCOSE METER 134 mg/dL 70-110 H : TESTED A T [facility] 6720 ([facility]) (test code = GRADY Mcgarry [facility], 1538) 119[address]: Roll Icer/Techni carroll ID = [id number] for IB RAHIM, SERKALEM LACTIC ACID, [id number] 10:06:44 Test Item Value Reference Range Interpretation Comments LACTATE BLOOD ARTERIAL (2) 0.9 mmol/L 0.5-2.2 (AKER) (test code = 2874) Roll Icer ID - [id number] 09:59:27 Test Item Value Reference Range Interpretation Comments Case Report (test code Medical Cytology = 104) Report Case: [id number] Authorizing Provider: Giovana Penn NP Collected: 03/19/2022 05:40 PM Ordering Location: [place] [address] ICU Received: 03/20/2022 09:07 AM Pathologist: Lance Koenig MD Specimen: Bronchial Wash DIAGNOSIS (test code = c5mcaOYlVQRtf4qeGLMpmI 3220) FuZzEwMzNcZnRuYmpcdWMx IHtccnRmMVxlcGljOTYwMl ktwdLwNCFrrUNyF1Fnaecy CBcfZB0sWN9qkSpedIEuyV PwSQEtMoTis6zbc381xCWg f7dbEBKBwagjiIv4sVzfQ1 8mc1A7KpubT29xnJKlHXH3 WUHkJCOilTDfIOGyGIY0WL TgxQDkU2gqYYVxIO2jfzcu WAnoILqgAUIokAE7IUFnfJ FwY9BuAMTiSPhpVBJtjvw7 TkHuZi3mcGBynCkyBSujFJ JkXHBsYWluXGZzMjAgQlJP LzFPATYIMUtVX0xQOxcoZO MWAP5LZRuHUjv5XAHsoeEe AITvKW8NA8PBYECLTWZSLm HYNQmDL18OImXaV4QDCVIm DGPomnTfFBRhQJWvAPO8jS RbSAOrMFElOA6rR37iJmOp bmNoaWFsIGNlbGxzLCBtYW Ifn8ClLJbebilsvUK9nHHw PEWzfMWau6WvZLUenFjrWO YghcNgxWWfv2CqSDOcjMMr TMajRjuofL2tvDsmyd1lzH PhhGumlaEtKYirl3NbBFoh XKSmDT8afXiuTPOqNN8qFW HvK6bweN8stce9DdKkFNEu HjS2XIQmwlQ8Nft2VAFjVZ fwy2ifg6IePDNmVYn7yTaw KjIaPYLtj6lehzEuVhLzWL YcSASbNAAuuKBgY736u0yu p3syiuXoyGA6CCKsQNO7MH ivqhVavyI1KPlfgMXjUbZ8 IDtccmVkMFxncmVlbjBcYm n6ZDNjT473VIW9pEnqf7pr ZGU9BCUtCQHuHgTnFp4msC XvD387EUQlLTFCBIQbxIl9 PKYsuoVzykVtuJKRg461K0 16s8bzSGMtnvRnbWsChguc q5bmD725ATLuqDXfqtHfRh PoSLAoiBTtfDF5GFWbXX0a qazlECtpGJviDGGeyjG8RV EifWCzY9ItCMNsXF1nmwex PGY0IGtxMWOjTZR6VsGjKM Wjc6Apqqc5DvAcbf8xgh54 BFZ5u6FfjPguKPG0KPP9Sr AyJa0huZZtKYUqDX2cTtAy rAGlXNXoxy46gDuvEHouBP N9DBDlrmPee0Bxo1hoLqOf nuXzF6dtO3XxAUXfXITcHA EtHwPvleOqs6Btk6JmqDDk qSj3o6ydRDNgRKZvuRgmt9 rdGQC0ONKjnHMlT0ygvA7c FGApMP8lxfkcd5aoNHiwGW cfCINzqBB1cyM7OCMgcBKm B9WkeH6ySDDmSWubHUUqtp v8EoEtCq3anOYxzEdsPQhy YmtwYWdlXHBnbmNvbnRccG duZGVjXHBsYWluXHBsYWlu XGYwXGZzMjRccWxcbGFuZz EwMzNcaGljaFxmMVxkYmNo OEUaNIgjG4ihUsAyHoMkYm w6BEIwdPLuETPfGeh0RAIf nCYePKWWzBifzX7sAVUlcQ uwaQ0msOR1CFRtzoVbdDZB hT2rGJJVdS3zStB0YJFlAc c9QOY7MoFxdOVfrK8= COMMENT (test code = s4qweZVfEZCfvIP9ZfYbQP 8231) Bjp9dhy1XecXCrpYAuHMqx zOLbycCouu02zFP7cY81ZI 6uCFJmSaE4PJNbwzL0Btp0 IBDpTLRurLQrV563g8zmn7 ynibHrzAK1kFmeQPCurufy AsV4NGgaNJKzulucNOa1KU scFAXffJH0PISuvQIoU7Gc DNFrHW2lfyr2ZKW2QLrwBX BkWyL3QXCkjFPhQSAghFkq IMopu006WKS1DgTeULVweo NzyPmilW6fRpBqHQTUkZ1k RKgrKBbxwTBtfPDcjN9xrX ormM8yzCMwtVv0QPEchIOv lHyrqYXqk9q2kUWOLX1xjP RhIHNwZWNpZXMgbGlrZWx5 DKRnbPEei8OvpTloKjVzyj UuZVKyobGpkMckCFGdy74r IREmZB8suGLmUyoxnN5wFP xpbmVcbGluZVxwYXJ9 CPT Code(s) (test code e2flqDOnBBUeqLC1YmSxFI = 3353) Bqv5err3IjsMBrlBJbCHzs cYYqluDzji78aMJ9gQ39US 9iECBmVqV6ECPhflY0Xrj1 OVUoQHXqrLGtQ621i0fzz0 laylYauBS8oDxzBFQxwkje QjK0WKdvUNHiefeyAKy9TC vrMDSrcHB8QHSfgMZuB5Yz KNZqBL1xxga5PSW9FMwoYS EhPzD4CQJknTOjEWYokKiy SShqs629WUF0GtYkIAPgcq VoyDqrsJ4sCwPlIZE1FLIj OFxwYXJ9 CLINICAL DATA (test q0svuPFfIQTqeSL4DiBvFV code = 335) Viu3pzz5TvqDQldAXmUNmi oGEjujLgit46yJA0dL49FK 6eKYNeNyN4RKRtzkG2Scz7 HZKdRODotMVgU633p8vth6 fmrdRdxSG0FBFhOCF3LIiq MEInQIGzTsj5TQB2V81flA DfKAU6WTCdEIAcaMFnIGUs JYX5LDSukLQlT5qhOFErUB 9xdjgdUTedHKxzLAQdeME7 VJZrmFBpQ4OqMZJeWCdxYT Otumk7DnOhJq9ukKLbdPdl MFxwYXJkXHBsYWluXGZzMj FfMmgvcL5aOOEeVN2axSKm EKP0iMSrTZNZMOudh3ZqNR NmMSBjZXJlYnJhbCBwYWxz mRdpTPX3CDlhhK8uxwGhlK BiQExcrLafv5SgcYref2dz HDRubaKjPVAupMKlp4lcb2 PsoW6viINghbJpcPmdvE2g kNZtHY6emDYyXVAwmpXiXa 9mPLpnvVkoaJJ5qYOqX9sh UQ7xCRDedVLjLGk5dT01AV 9uMkPoCYPvbZCepX9lgSHl YWlsdXJlLlxwYXJ9 SPECIMEN SOURCE (test k5nhmVJsNRClkSE4LrKmGF code = 3377) Tlb0ddd8YolNEbrLOvHLly oJIqscChms10zRR1aM93DI 9zATDmXoY6EDJmfvR6Hxd4 GUCvBXWahEVhI975m7gbd8 xxpeAokPT7qUxqWTSbwfzc IsV6IEexKLWlddreVOs5YF siHVZaqTS2LBVafNNbE9Vo JQTkEI2jxmo7SPJ3OKixUY XmShM0BKMuuLVbLWYvrDqb PEowa456JBY6FcVgIRYqge RojYzvuX2oVrEjDYYHUr4S O3vSGDzmP8VHOCvQA4zjWP J9 GROSS DESCRIPTION (test m1uvrIOrSGSdrEPOPKJeB3 code = [id number]) wmxbDqKIHmiVEbQ9Ehqiba FJmkNC5rMT4bwUgsmKOsnW IgVL7RRMQvLuPfFCXvfXAf ijSiCkHyQGVvrVBacCV3VE SwYK6ljjzwHEjjCCumUYMo ecX3MPGcbXHzT8GqGQRbCF 1lahfqCPC7MKlthV7cyhHR WfqoKs8gvEFjhPmpNhDwWw NoYXJzZXQwXGZuaWwgQXJp QHf4bD8AXxrnABU6MKCOEt gdRLTxZM4Ej4vuCWTymAUn HOD0GOmduNMdNVFtRVXsCC c3WHKmOOdctVLdPF5miXno KyflhMobq1AiuGBwHOqtLL DdCZHuMHbnCYMmAU8EDrZv PTY2RwV6HzGdXMh9PMb8JT 1TZiHxVEFkDTB8Vah4ESSh MXe7OTwhEF4GTAI9AxCoOO hyIiO4ATD2RNTeCGEhLiTm XGYgQXJpYWwgXFxmbCBcXG 0nzJiwnUCralKNUyKZjx4z Y3ayXSjbQ3GmvF2ljDXjEV 7PYJNorMTPHUF3XP1uMVDV ClxsdHJwYXJcbGluMFxyaW 0xHS5TWHe3xhMqWQTtJxPd AwHrFFe9XUNeXXBoiMquLI DtyBp3wNawIFNfrKXspO9n HDocQ8iiiRD7IXHugNzaMg QralCuKOCpPTX9SLI4jU5k sZpszx7LSDMcCXvtOMLhoF DGBGX3HI9fOZocbHPltqkw TJBlL0YuB6YqdhUvpFBgJZ McnqLdt0fnNLU0SKGkzBWf yWWgLcZfHenoENV7SIkca2 muKTR0FPQktJOxvBXiONwc LaNaVnqoUUFiI8BfK1Tmql R9DQp9 MICROSCOPIC DESCRIPTION w6spnYMfGMZvcYR0NeTuGK (test code = 3371) Whq0mix2OxdJXmvAJuUGck kAHmxnQbql56lKK1vR92GK 3rJFAnJxB1CGUlqvP7Tpg6 WXTbXSVviZSoX849b6fbw4 zvwkJvnYX5lDucQXGrmnpx ZsR9NIjoVPQlgyouZKn8RM uqDHKvvBW9HCRlwSJtB5Py IANqYZ0vpdr5ADM8CEawKA FtVgF3IHSinCOyTWEiaRnl BRomi338JKQ7HmKvLFVcxe UdwWnhdP1sLdJnGIZJLHYn i7RjOLJkZEOztgezJGReDW Bhcn0= STATEMENT OF ADEQUACY Satisfactory (test code = 2757) Gross assessment was [facility] performed at ([facility], = 2777) Department of Pathology, [address] [place] [address], Technical component was [facility] performed at ([facility], = 2778) Department of Pathology, [address] [place] [address], Professional component [facility] was performed at ([facility], code = 2779) Department of Pathology, [address] [place] [address], [facility] Test Item Value Reference Range Interpretation Comments Case Report (test code Medical Cytology = 104) Report Case: [id number] Authorizing Provider: Giovana Penn NP Collected: 03/19/2022 05:40 PM Ordering Location: [place] [address] ICU Received: 03/20/2022 09:07 AM Pathologist: Lance Koenig MD Specimen: Bronchial Wash DIAGNOSIS (test code = [id number] 3220) FuZzEwMzNcZnRuYmpcdWMx IHtccnRmMVxlcGljOTYwMl zwjbPyZGIpoXJxQ2Jcmprx IDraBV3kCA2jgMlfeRLgrB XiNKPzSqOpi4ztv926jMIg h2buFJPZgnzxzMx8wPdgN8 5fd2H2YtpgC15xlJQnXGF4 BXEoLLSslWWjIQLxKBN5XY EocNBmQ8ayRBVrQD0afsrv SAnbYUgpRLJaoNH7BCTnjL UpZ8IzRBYeIEjbZAKqsbn2 NlZoIh9gkVIkcLjhNAdbYT JkXHBsYWluXGZzMjAgQlJP CtZLLSMMUVgTV4iWMtyyTU AVUK0TNVaDYvh7KKLgkvFq TGXqCY6GT5EJJKVOFWQMCe WKCKfZM52FMnLrC4JUWVJw RWFydtLaPTAxSFCgVIX0uF VhJALzPLJaWV2mB79tZwUo bmNoaWFsIGNlbGxzLCBtYW Smb9FaWJrqdrltyTZ3jMYx JFNebRLsr0NrVBNrrVnaWV TcqaQthISca2QsZVJshAPm OOczXpivnM2qlXoehw4crB VypKqmqfCbJLfpa2BnONhk SAHnQJ2puPrbDSKgAF6qBQ JgD4nniL9kqcl9FtQtOFUp TpU5ZJTyedA8Hhu6LSMrBS jag0hqg5MkTVNoRXs1hPsc VmOjHTApx3vljrFdCvGxDY PdGDTzPGOqaRRlS494f8uu f1uzrxEnvUL8SDNdTZX7CJ hnhhQewnE3XZweaYAqUhD2 IDtccmVkMFxncmVlbjBcYm z6EMSjY214DOW8nTyfx8nq MZU1CIJxBETpUlPvSt4lzF OfC864ZXUgLNUILKRknHd4 YXXmhtQrebTugGPJe298F1 91q0xuUYTgwtNuyZvPtocb x1zuG349BYGrpRLlcuZoNh WtVFSqiVGqzLQ3YNVnHP7v ybeyHWhkCGdvHAYctnN5RE GmjXUoM8OlULOnNJ2hoxce XXW1XHnySKPgDPF6ZvQqEV Lia1Ouwpp6QfEcyt2rlf31 YSK4d2IxeHalRFY9DAS0Qm TrZd2vdUMuLYUbJG5oVpRj oVXkRGUngz21eTqgSWbrBC N9NAVqiaSpn2Cbx0vyUfQc tzDpP1uaB0SoCRTsTJOoZC NeYkCyyeUib6Wsb1MkuVPw yQu8r1qxSXYfHUYawRzgj3 bbFTI5XIRrqVWoF7ekkW3y VFTlOE1fhxggs5fxODzeZI smBGDwjUU8ocN8LSTjmMOq R0UkcH3zUXEvPUiwHGZeba g0HzLcSk9daPUxdQbzXCcg YmtwYWdlXHBnbmNvbnRccG duZGVjXHBsYWluXHBsYWlu XGYwXGZzMjRccWxcbGFuZz EwMzNcaGljaFxmMVxkYmNo GJQgCHrhL3mmFiZfTkBvSb w4LWMnfCNzSFQhQnz3HLCa hXJhWEXMaRgjkT7jFQFmgD jhcX9oaLM4JJBrzbHltLBF yS2gWJYQsA2gRtU8EBGtUb q6QLU2ZxHhsKNssT2= COMMENT (test code = h7qpaJGmWPDkeVS1BnHeWM 9452) Sdv3obw3SvvNFbqVVuBWee uHDbvyDavz08yES1pI75UY 6cTHFnYuE9KTXirxF4Prl5 XNDzKYLvhDCrN751r3szi9 cevqPofFM0oVssWMOmegyw IzW7CQzzJEXzfotnOHz1NG fdHVWmvZU2CTHlqQTzX5Uh IVNgEG9qrsy3ORB9IZqcYF CoKgY2TAZwhHEvOTRktJjs XOfvg427AKW4QwDzLUAqrk KwpGgrfP5dWeRdSJPWbQ6f OLggSUyicQOqkSJnfA5qpB hxvP6cnFFpjOx4EHPqeHGr hPvxkVFvu7n1iTWQKW7uiJ RhIHNwZWNpZXMgbGlrZWx5 TEYhyRMme9YcsTqpTlFjdu PgEEWkxnFrsVmqKNYhs72o ZGVaFV5ncXIjZkcreS5pVN xpbmVcbGluZVxwYXJ9 CPT Code(s) (test code a3nabICjWADmoVY9BqUoZC = 3358) Jiq4smp2LjkBCilCPcFYuu nEMaooCgbu28dXH8pD50WL 3vSVIuZcT3VFUydtF2Hcr3 DURgGLOwiDDlX474r8ilv3 zsvvGhqAZ5wOrzCCPvkcjo FvN5BPgiWDCyssvdKRd2TE wcBIEizLR6ZCAdrGXbF1Ke YGSrRS5iwgy4ZDE7OXftAX GvRpI3ALDcyIPmCAWcgGah BGppu404DDL4SbPiFMOliy DeaPnouU5rKbVtCWJ8LEQj OFxwYXJ9 CLINICAL DATA (test s3bhaXTjDGTygDH2DaRdBL code = 3352) Iep1lor1NrtFPvhNNrPZfx hTIvwqAxgl79jAX2xB10HA 1dTESwJaP6DCCxanZ9Kcm5 MKTpCESatOXwM851o3fng1 wkqlUzqDA4FWPuCEU2EIwx YXXiGXNiOrt5KWF0I28nqE GzDBE4BOSsCADcfZLqRWUv XCU8GGYbkGHoB7uoSOJfLY 8gqpurXKnhCMbkBMYgeVS2 NDDrmCBfP3QpEGMiWHzmMA Xcrpp3MaRxEj4rxHEuzTfd MFxwYXJkXHBsYWluXGZzMj NeJalqkP9lWCFdMX7ihADa DDW0lZZwHRBFTFhbs4AkNO NmMSBjZXJlYnJhbCBwYWxz sFuiSDJ9XJeieV3pswTtgN WcHKijwIehu7ZohKdvg2xp GNWmjrDtNJGvhPJrf2seu7 SzxR3lnUWafcBttQokaC9n gRJyMA4zhGGdLCAkwjVjJg 9wEZxnsHglzGQ2wLCwX4wt NE8iDNXdhSLjXGn5dL76QD 6rXoJrIHGurJFfnF4jrOGi YWlsdXJlLlxwYXJ9 SPECIMEN SOURCE (test w5icdIAuQZCqlYD6IhObBK code = 3377) Vut2xfv5XiqKOatTIaXOux sTFsqaHkao55mYW2jJ34ZC 3lXILyClF1ZWMtduX7Lvt6 LLShGTPshMGmM464g4sko8 udkhUrfGR8wMwvSRAfbhbs PqS2BBdrBHMsmottMDg7WV ouKZNemWB8IWBvgLOyI7Dp JVXkER2fnum9WPV7CYekWI SmMzS8TDPtaJLxYZWbyOel MSrjq777TSU3DiKmSBTydp XicEqqoH4gMyWcFBZJGp9B V3mVQBwqY9ULWKvXZ7mbVC J9 GROSS DESCRIPTION (test n3fkkSDzTERzdJNXLHLjZ1 code = [id number]) cfaiMgYLNvsEQlN9Abnhrb FCduZB3tQF8sjOgmvUPdrZ JcJJ9MRNXsBnDwFESbvPQi hmRqCdDuQXMihCCvjFG0FP CrTC6fbhmsBUzxOIfsNTLz dmF8DXKwmHWcO8XrQAFnJA 8txptiFAC4KAyhvD8vrzHT IitkIp2kyEZiqNdoWnStDe NoYXJzZXQwXGZuaWwgQXJp DNw3qE6ACecpURJ4MUGWXq vqOQXgPU8Tk7skIUPksYJa HNZ2XZknsTWzOOJtKQRmKR u9AOHhCCuxdESgDD2fqKhi QvsgdTpkx0BpvYDoMOkqZB AgNAMuUOusTTCpNY0RXtGb ETV6IoQ6WaCxZCk9GSy6XO 6EDhYxZYMkUOI9Vpu1KZNs FMj8ZZizXY9QLXQ6GjWdIJ ifXhD0CFA1IPFkCNAwPgGn XGYgQXJpYWwgXFxmbCBcXG 9rsFpakLAxxdSWOtMAlz7j W7wuYOlwE7HjbV7cgOEaOS 2JXJLcbEVWKQS2PO6ePKHG ClxsdHJwYXJcbGluMFxyaW 7fBD4EINr7ohPkJRLlAvKs YbBaYAb5RAGePLSvpUdlOQ GthEh2wAogYHQbyUGwgQ5t KGcnM2dskCI4ZXKvkSpsMp UkyyJdJTJjMLV5SES4kW2n rIbiid3TGDVkMCazTCIqyY VHUBH4LI1zPWshyEEcibbj SSDmX7MnL9OqseKtnAYgBS LmgzUam2xoLPF2EZEgdNKo gYEaBrVgFicmNVR8DKamv6 acPFB3BAWhdNCeuUThGQfl HrYcUtbzSFUtM0MfV5Ovct R9DQp9 MICROSCOPIC DESCRIPTION f8cylWCpRMYbnLP0SfSrRZ (test code = 3371) Tyg3urt2ZulEIxiJQxFZvw aVWvjnIvgj33qSS1pH53BL 7iDRFuJiC8FVQbxvK0Zzf2 YNOrHNWywXArM941w7dqi6 vxajMjzIT4aWtdQEAopijb PeP5SMmmXTHryqczTRy9WQ fpFTUafKD9NRBilRNuJ0Pt CKOiQF8xxdk0KHZ9VIypTE LwUmF2GHCqjVRnRUPbfFrx ZGbqu477TUB2DoGfIVWzyw PhjNfybG2pGfSjTMXKUXAe m1DnOWRuMYDeyirxOAZpAQ Bhcn0= STATEMENT OF ADEQUACY Satisfactory (test code = 2757) Gross assessment was [facility] performed at ([facility], = 2777) Department of Pathology, [address] [place] [address], Technical component was [facility] performed at ([facility], = 2770) Department of Pathology, [address] [place], [place] [id number], Professional component [facility] was performed at ([facility], code = 2779) Department of Pathology, [address] [place] [address], [facility] 09:59:27Medical Cytology Report Case: [id number] Authorizing Provider: Giovana Penn NP Collected: 03/19/2022 05:40 PM Ordering Location: [place] [address] ICU Received: 03/20/2022 09:07 AM Pathologist: Lance Koenig MD Specimen: Bronchial Wash BRONCHIAL WASHING (CYTOSPINS): - NEGATIVE FOR MALIGNANT CELLS. - Reactive and benign bronchial cells, macrophages, mature squamous cells, and marked acute inflammation. Signing Pathologist Direct Phone Line: [phone] signed by Lance Koenig MD on 03/21/2022 at 9:59 AMFungal elements morphologically compatible with Danielle species likely representing oral contamination are noted.[id number] yo M admitted with PMHx of cerebral palsy, developmental delay, scoliosis, and epilepsy of unclear etiology admitted on 03/08 with lethargy and acute hypoxemic respiratory failure.BRONCHIAL WASHINGA. Bronchial Wash.Received 15 mls a little bit bloody cloudy fluid; prepared 4 cytospinsPerformed.[facility], [facility] of Pathology, [address] [place] [address], [facility], [facility] of [facility]ology, [address] [place], [place] [address], [facility], Department of Pathology, [address] [place] [address], FRX, CHEST, 1 VIEW, NON [id number] 09:03:00Reason for exam:->intuabted, pneumothorax ,s/p CTShould this be performed at the bedside?->Yes [facility] 1985 Sex: MFINAL REPORT RAD, CHEST, 1 VIEW, NON DEPT INDICATION: intuabted, pneumothorax ,s/p CT COMPARISON: Prior day's exam FINDINGS: Portable frontal view of the chest. IMPRESSION: Support Lines: ET tube tip is 5cm superior to the akbar. Feeding tube descends below the diaphragm. Lungs and pleura: Lungs are hypoinflated compared to prior exam. Unchanged bilateral airspace opacities concerning for multifocal pneumonia versus multifocal edema. No significant pneumothorax. Heart and mediastinum: Stable contours. Stable surgical changes. Additional findings: None. Signed: Justin Cramer Verified Date/Time: 03/21/2022 09:03:45 Reading Location: [address] Reading Room El ectronically signed by: JUSTIN CRAMER MD on 03/21/2022 09:03 AM [id number] 04:30:58 Test Item Value Reference Range Interpretation Comments PHOSPHORUS (BEAKER) (test code = 4.0 mg/dL 2.3-4.7 604) Roll Icer ID - NELLY MHEPATIC FUNCTION [id number] 04:30:58 Test Item Value Reference Range Interpretation Comments TOTAL PROTEIN (BEAKER) (test code = 6.9 gm/dL 6.0-8.3 770) ALBUMIN (BEAKER) (test code = 1145) 3.2 g/dL 3.5-5.0 L BILIRUBIN TOTAL (BEAKER) (test code 0.3 mg/dL 0.2-1.2 = 377) BILIRUBIN DIRECT (BEAKER) (test 0.1 mg/dL 0.1-0.5 code = 706) ALKALINE PHOSPHATASE (BEAKER) (test 126 U/L 40-150 code = 346) AST (SGOT) (BEAKER) (test code = 43 U/L 5-34 H 353) ALT (SGPT) (BEAKER) (test code = 70 U/L 6-55 H 347) Roll Icer ID - NELLY [id number] 04:30:58 Test Item Value Reference Range Interpretation Comments LIPASE (BEAKER) (test code = 749) 14 U/L 8-78 Roll Icer ID - NELLY MBASIC METABOLIC [id number] 04:30:57 Test Item Value Reference Range Interpretation Comments SODIUM (BEAKER) 140 meq/L 136-145 (test code = 381) POTASSIUM 4.0 meq/L 3.5-5.1 (BEAKER) (test code = 379) CHLORIDE (BEAKER) 102 meq/L 98-107 (test code = 382) CO2 (BEAKER) 26 meq/L 22-29 (test code = 355) BLOOD UREA 16 mg/dL 7-21 NITROGEN (BEAKER) (test code = 354) CREATININE 0.68 mg/dL 0.57-1.25 (BEAKER) (test code = 358) GLUCOSE RANDOM 126 mg/dL 70-105 H (BEAKER) (test code = 652) CALCIUM (BEAKER) 9.0 mg/dL 8.4-10.2 (test code = 697) EGFR (BEAKER) 122 Interpretatio n of eGFR (test code = mL/min/1.73 values Stage De scription 1092) sq m Result G1 Tyra l or high >=90 G2 Mildly decreased 60-89 G3a Mildl y to moderately 45-5 9 G3b Moderately to s everely 30-44 G4 Severl y decreased 15-29 G5 Kidney failure <15Reported eGF R is based on the CKD-EPI 2020 equation that d oes not use a race coefficientEsti mated GFR is not as accur ate as Creatinine Papi sandor in predicting glom erular filtration rate . Estimated GFR is not appl icable for dialysis patien ts Roll Icer ID - NELLY [id number] 04:30:57 Test Item Value Reference Range Interpretation Comments MAGNESIUM (BEAKER) (test code = 1.8 mg/dL 1.6-2.6 627) Roll Icer ID - NELLY MCBC W/PLT COUNT & AUTO [id number] 04:11:19 Test Item Value Reference Range Interpretation Comments WHITE BLOOD CELL COUNT (BEAKER) 10.4 K/ L 3.5-10.5 (test code = 775) RED BLOOD CELL COUNT (BEAKER) 3.17 M/ L 4.63-6.08 L (test code = 761) HEMOGLOBIN (BEAKER) (test code = 9.4 GM/DL 13.7-17.5 L 410) HEMATOCRIT (BEAKER) (test code = 29.8 % 40.1-51.0 L 411) MEAN CORPUSCULAR VOLUME (BEAKER) 94 fL 79-92 H (test code = 753) MEAN CORPUSCULAR HEMOGLOBIN 29.7 pg 25.7-32.2 (BEAKER) (test code = 751) MEAN CORPUSCULAR HEMOGLOBIN CONC 31.5 GM/DL 32.3-36.5 L (BEAKER) (test code = 752) RED CELL DISTRIBUTION WIDTH 15.2 % 11.6-14.4 H (BEAKER) (test code = 412) PLATELET COUNT (BEAKER) (test 685 K/CU MM 150-450 H code = 756) MEAN PLATELET VOLUME (BEAKER) 9.5 fL 9.4-12.4 (test code = 754) NUCLEATED RED BLOOD CELLS 0 /100 WBC 0-0 (BEAKER) (test code = 413) NEUTROPHILS RELATIVE PERCENT 67 % (BEAKER) (test code = 429) LYMPHOCYTES RELATIVE PERCENT 20 % (BEAKER) (test code = 430) MONOCYTES RELATIVE PERCENT 9 % (BEAKER) (test code = 431) EOSINOPHILS RELATIVE PERCENT 3 % (BEAKER) (test code = 432) BASOPHILS RELATIVE PERCENT 1 % (BEAKER) (test code = 437) NEUTROPHILS ABSOLUTE COUNT 6.94 K/ L 1.78-5.38 H (BEAKER) (test code = 670) LYMPHOCYTES ABSOLUTE COUNT 2.13 K/ L 1.32-3.57 (BEAKER) (test code = 414) MONOCYTES ABSOLUTE COUNT (BEAKER) 0.94 K/ L 0.30-0.82 H (test code = 415) EOSINOPHILS ABSOLUTE COUNT 0.26 K/ L 0.04-0.54 (BEAKER) (test code = 416) BASOPHILS ABSOLUTE COUNT (BEAKER) 0.06 K/ L 0.01-0.08 (test code = 417) IMMATURE GRANULOCYTES-RELATIVE 1.00 % 0.00-1.00 PERCENT (BEAKER) (test code = 2801) LACTIC ACID, [id number] 04:08:31 Test Item Value Reference Range Interpretation Comments LACTATE BLOOD ARTERIAL (2) 3.4 mmol/L 0.5-2.2 H (BEAKER) (test code = 2874) Roll Icer ID - NELLY MBLOOD [id number] 04:00:40 Test Item Value Reference Range Interpretation Comments CULTURE (BEAKER) (test No growth in 5 days code = 1095) BLOOD [id number] 04:00:40 Test Item Value Reference Range Interpretation Comments CULTURE (BEAKER) (test No growth in 5 days code = 1095) CALCIUM, [id number] 03:48:54 Test Item Value Reference Range Interpretation Comments CALCIUM IONIZED (BEAKER) (test 1.05 mmol/L 1.12-1.27 L code = 698) PH, BLOOD (BEAKER) (test code = 7.48 1810) BLOOD GAS, [id number] 03:48:54 Test Item Value Reference Range Interpretation Comments PH ARTERIAL (BEAKER) (test code = 7.47 7.35-7.45 H 383) PCO2 ARTERIAL (BEAKER) (test code 43 mm Hg 35-45 = 384) PO2 ARTERIAL (BEAKER) (test code = 91 mm Hg 80-90 H 385) O2 SATURATION ARTERIAL (BEAKER) 97.2 % 96.0-97.0 H (test code = 386) HCO3 ARTERIAL (BEAKER) (test code 31 mmol/L 21-29 H = 388) BASE EXCESS ARTERIAL (BEAKER) 6.9 mmol/L -2.0-3.0 H (test code = 387) PATIENT TEMPERATURE (BEAKER) (test 37.6 code = 1818) FIO2 (BEAKER) (test code = 1819) 60.0 POCT-GLUCOSE [id number] 23:53:47 Test Item Value Reference Range Interpretation Comments POC-GLUCOSE METER 132 mg/dL 70-110 H : [facility] ([facility]AKER) (test code = [place], 1538) [address]: Roll Icer/Techni carroll ID = [id number] for Lita juanOscar messer RAD, CHEST, 1 VIEW, NON [id number] 21:42:00Reason for exam:- >hypoxiaShould this be performed at the bedside?->Yes [facility] : 1985 Sex: MFINAL REPORT RAD, CHEST, 1 VIEW, NON DEPT CLINICAL STATEMENT: Hypoxia, shortness ofbreath. COMPARISON: 03/20/2022 at 0115 hours. FINDINGS: Heart is moderately enlarged. Endotracheal tube and enteric tube are in appropriate placement. No pneumothorax. Moderate pulmonary edema. Mild bilateral pleural effusions. IMPRESSION: Stable findings of CHF. Signed: Wilian Duronepdarryl Verified Date/Time: 03/20/2022 21:42:37 BASIC METABOLIC [id number] 21:02:50 Test Item Value Reference Range Interpretation Comments SODIUM (BEAKER) 139 meq/L 136-145 (test code = 381) POTASSIUM 3.5 meq/L 3.5-5.1 (BEAKER) (test code = 379) CHLORIDE (BEAKER) 102 meq/L 98-107 (test code = 382) CO2 (BEAKER) 29 meq/L 22-29 (test code = 355) BLOOD UREA 16 mg/dL 7-21 NITROGEN (BEAKER) (test code = 354) CREATININE 0.62 mg/dL 0.57-1.25 (BEAKER) (test code = 358) GLUCOSE RANDOM 120 mg/dL 70-105 H (BEAKER) (test code = 652) CALCIUM (BEAKER) 8.7 mg/dL 8.4-10.2 (test code = 697) EGFR (BEAKER) 125 Interpretati on of eGFR (test code = mL/min/1.73 values Stage De scription 1092) sq m Result G1 Tyra l or high >=90 G2 Mildly decreased 60-89 G3a Mildl y to moderately 45-5 9 G3b Moderately to s everely 30-44 G4 Severl y decreased 15-29 G5 Kidney failure <15Reported eGF R is based on the CKD-EPI 2020 equation that d oes not use a race coefficientEsti mated GFR is not as accur ate as Creatinine Papi patten in predicting glom erular filtration rate . Estimated GFR is not appl icable for dialysis patien ts Roll Icer ID - [id number] 21:02:50 Test Item Value Reference Range Interpretation Comments MAGNESIUM (BEAKER) (test code = 2.5 mg/dL 1.6-2.6 627) Roll Icer ID - [id number] 21:02:50 Test Item Value Reference Range Interpretation Comments PHOSPHORUS (BEAKER) (test code = 4.1 mg/dL 2.3-4.7 604) Roll Icer ID - BSBLOOD GAS, [id number] 20:52:30 Test Item Value Reference Range Interpretation Comments PH ARTERIAL (BEAKER) (test code = 7.52 7.35-7.45 H 383) PCO2 ARTERIAL (BEAKER) (test code 43 mm Hg 35-45 = 384) PO2 ARTERIAL (BEAKER) (test code 158 mm Hg 80-90 H = 385) O2 SATURATION ARTERIAL (BEAKER) 99.2 % 96.0-97.0 H (test code = 386) HCO3 ARTERIAL (BEAKER) (test code 34 mmol/L 21-29 H = 388) BASE EXCESS ARTERIAL (BEAKER) 10.3 mmol/L -2.0-3.0 H (test code = 387) PATIENT TEMPERATURE (BEAKER) 37.7 (test code = 1818) FIO2 (BEAKER) (test code = 1819) 60.0 POCT-GLUCOSE [id number] 16:35:39 Test Item Value Reference Range Interpretation Comments POC-GLUCOSE METER 120 mg/dL 70-110 H : TESTED A T [facility] (BEAKER) (test code = [place], 1538) [address]: Roll Icer/Techni carroll ID = [id number] for Damián reynaldo (contract)Consuelo BASIC METABOLIC [id number] 12:41:38 Test Item Value Reference Range Interpretation Comments SODIUM (BEAKER) 140 meq/L 136-145 (test code = 381) POTASSIUM 3.5 meq/L 3.5-5.1 (BEAKER) (test code = 379) CHLORIDE (BEAKER) 101 meq/L 98-107 (test code = 382) CO2 (BEAKER) 29 meq/L 22-29 (test code = 355) BLOOD UREA 16 mg/dL 7-21 NITROGEN (BEAKER) (test code = 354) CREATININE 0.59 mg/dL 0.57-1.25 (BEAKER) (test code = 358) GLUCOSE RANDOM 130 mg/dL 70-105 H (BEAKER) (test code = 652) CALCIUM (BEAKER) 8.7 mg/dL 8.4-10.2 (test code = 697) EGFR (BEAKER) 126 Interpretatio n of eGFR (test code = mL/min/1.73 values Stage De scription 1092) sq m Result G1 Tyra l or high >=90 G2 Mildly decreased 60-89 G3a Mildl y to moderately 45-5 9 G3b Moderately to s everely 30-44 G4 Severl y decreased 15-29 G5 Kidney failure <15Reported eGF R is based on the CKD-EPI 2020 equation that d oes not use a race coefficientEsti mated GFR is not as accur ate as Creatinine Papi sandor in predicting glom erular filtration rate . Estimated GFR is not appl icable for dialysis patien ts Roll Icer ID - [id number] 12:41:38 Test Item Value Reference Range Interpretation Comments MAGNESIUM (BEAKER) (test code = 1.9 mg/dL 1.6-2.6 627) Roll Icer ID - [id number] 12:41:38 Test Item Value Reference Range Interpretation Comments PHOSPHORUS (BEAKER) (test code = 3.6 mg/dL 2.3-4.7 604) Roll Icer ID - MARCOPOCT-GLUCOSE [id number] 11:59:52 Test Item Value Reference Range Interpretation Comments POC-GLUCOSE METER 124 mg/dL 70-110 H : [facility] (BEAKER) (test code = [place] Mcgar[place] [facility], 1538) [address]: Roll Icer/Techni carroll ID = [id number] for Damián jacobs (contract)Consuelo SPIN/CONCENTRATION [id number] 11:51:14 Test Item Value Reference Range Interpretation Comments Concentration charged (test code = Done 0491) [facility] [id number] 11:51:14 Test Item Value Reference Range Interpretation Comments Concentration charged (test code = Done 5154) [facility] [id number] 11:51:14 Test Item Value Reference Range Interpretation Comments CONCENTRATION CHARGED (BEAKER) (test Done code = 4151) SPUTUM CULTURE + GRAM [id number] 10:04:40 Test Item Value Reference Range Interpretation Comments CULTURE (BEAKER) (test See comment code = 1095) GRAM STAIN RESULT 3+ WBCs (BEAKER) (test code = 1123) GRAM STAIN RESULT 0-5 epithelial cells (BEAKER) (test code = 718086) GRAM STAIN RESULT 1+ budding yeast (BEAKER) (test code = 756703) 2+ YeastNo Normal respiratory stacy presentRAD, CHEST, 1 VIEW, NON DEPT 2022-03-20 08:43:00Reason for exam:->intuabted, pneumothorax ,s/p CTShould this be performed at the bedside?->Yes [facility] : 1985 Sex: MFINAL REPORT RAD, CHEST, 1 VIEW, NON DEPT INDICATION: intuabted, pneumothorax ,s/p CT COMPARISON: Prior day's exam FINDINGS: Portable frontal view of the chest. IMPRESSION: Support Lines: ET tube tip is 5cm superior to the akbar. Feeding tube descends below the diaphragm. Lungs and pleura: Lungs are hypoinflated compared to prior exam. Unchanged bilateral airspace opacities concerning for multifocal pneumonia versus multifocal edema. No significant pneumothorax. Heart and mediastinum: Stable contours. Stable surgical changes. Additional findings: None. Signed: Justin Cramer MDReport Verified Date/Time: 03/20/2022 08:43:11 Reading Location: [address] Reading Room El ectronically signed by: JUSTIN CRAMER MD on 03/20/2022 08:43 AM TSH/FREE T4 IF [id number] 04:16:48 Test Item Value Reference Range Interpretation Comments THYROID STIMULATING HORMONE 3.022 uIU/mL 0.350-4.940 (BEAKER) (test code = 772) Roll Icer ID - [id number] 03:59:43 Test Item Value Reference Range Interpretation Comments PHOSPHORUS (BEAKER) (test code = 3.6 mg/dL 2.3-4.7 604) Roll Icer ID - MARCOBASIC METABOLIC [id number] 03:59:42 Test Item Value Reference Range Interpretation Comments SODIUM (BEAKER) 140 meq/L 136-145 (test code = 381) POTASSIUM 3.9 meq/L 3.5-5.1 (BEAKER) (test code = 379) CHLORIDE (BEAKER) 103 meq/L 98-107 (test code = 382) CO2 (BEAKER) 29 meq/L 22-29 (test code = 355) BLOOD UREA 17 mg/dL 7-21 NITROGEN (BEAKER) (test code = 354) CREATININE 0.64 mg/dL 0.57-1.25 (BEAKER) (test code = 358) GLUCOSE RANDOM 131 mg/dL 70-105 H (BEAKER) (test code = 652) CALCIUM (BEAKER) 8.8 mg/dL 8.4-10.2 (test code = 697) EGFR (BEAKER) 124 Interpretatio n of eGFR (test code = mL/min/1.73 values Stage De scription 1092) sq m Result G1 Tyra l or high >=90 G2 Mildly decreased 60-89 G3a Mildl y to moderately 45-5 9 G3b Moderately to s everely 30-44 G4 Severl y decreased 15-29 G5 Kidney failure <15Reported eGF R is based on the CKD-EPI 2020 equation that d oes not use a race coefficientEsti mated GFR is not as accur ate as Creatinine Papi sandor in predicting glom erular filtration rate . Estimated GFR is not appl icable for dialysis patien ts Roll Icer ID - [id number] 03:59:42 Test Item Value Reference Range Interpretation Comments MAGNESIUM (BEAKER) (test code = 2.1 mg/dL 1.6-2.6 627) Roll Icer ID - KAMRANOCBC W/PLT COUNT & AUTO [id number] 03:43:50 Test Item Value Reference Range Interpretation Comments WHITE BLOOD CELL COUNT (BEAKER) 10.9 K/ L 3.5-10.5 H (test code = 775) RED BLOOD CELL COUNT (BEAKER) 3.08 M/ L 4.63-6.08 L (test code = 761) HEMOGLOBIN (BEAKER) (test code = 9.1 GM/DL 13.7-17.5 L 410) HEMATOCRIT (BEAKER) (test code = 28.4 % 40.1-51.0 L 411) MEAN CORPUSCULAR VOLUME (BEAKER) 92 fL 79-92 (test code = 753) MEAN CORPUSCULAR HEMOGLOBIN 29.5 pg 25.7-32.2 (BEAKER) (test code = 751) MEAN CORPUSCULAR HEMOGLOBIN CONC 32.0 GM/DL 32.3-36.5 L (BEAKER) (test code = 752) RED CELL DISTRIBUTION WIDTH 15.3 % 11.6-14.4 H (BEAKER) (test code = 412) PLATELET COUNT (BEAKER) (test 573 K/CU MM 150-450 H code = 756) MEAN PLATELET VOLUME (BEAKER) 9.4 fL 9.4-12.4 (test code = 754) NUCLEATED RED BLOOD CELLS 0 /100 WBC 0-0 (BEAKER) (test code = 413) NEUTROPHILS RELATIVE PERCENT 72 % (BEAKER) (test code = 429) LYMPHOCYTES RELATIVE PERCENT 16 % (BEAKER) (test code = 430) MONOCYTES RELATIVE PERCENT 8 % (BEAKER) (test code = 431) EOSINOPHILS RELATIVE PERCENT 2 % (BEAKER) (test code = 432) BASOPHILS RELATIVE PERCENT 1 % (BEAKER) (test code = 437) NEUTROPHILS ABSOLUTE COUNT 7.85 K/ L 1.78-5.38 H (BEAKER) (test code = 670) LYMPHOCYTES ABSOLUTE COUNT 1.74 K/ L 1.32-3.57 (BEAKER) (test code = 414) MONOCYTES ABSOLUTE COUNT (BEAKER) 0.89 K/ L 0.30-0.82 H (test code = 415) EOSINOPHILS ABSOLUTE COUNT 0.19 K/ L 0.04-0.54 (BEAKER) (test code = 416) BASOPHILS ABSOLUTE COUNT (BEAKER) 0.06 K/ L 0.01-0.08 (test code = 417) IMMATURE GRANULOCYTES-RELATIVE 1.60 % 0.00-1.00 H PERCENT (BEAKER) (test code = 2801) BLOOD GAS, [id number] 03:21:10 Test Item Value Reference Range Interpretation Comments PH ARTERIAL (BEAKER) (test code = 7.50 7.35-7.45 H 383) PCO2 ARTERIAL (BEAKER) (test code 43 mm Hg 35-45 = 384) PO2 ARTERIAL (BEAKER) (test code = 116 mm Hg 80-90 H 385) O2 SATURATION ARTERIAL (BEAKER) 98.5 % 96.0-97.0 H (test code = 386) HCO3 ARTERIAL (BEAKER) (test code 33 mmol/L 21-29 H = 388) BASE EXCESS ARTERIAL (BEAKER) 8.9 mmol/L -2.0-3.0 H (test code = 387) PATIENT TEMPERATURE (BEAKER) (test 37.2 code = 1818) FIO2 (BEAKER) (test code = 1819) 60.0 CALCIUM, [id number] 03:21:09 Test Item Value Reference Range Interpretation Comments CALCIUM IONIZED (BEAKER) (test 1.04 mmol/L 1.12-1.27 L code = 698) PH, BLOOD (BEAKER) (test code = 7.51 1810) POCT-GLUCOSE [id number] 00:12:42 Test Item Value Reference Range Interpretation Comments POC-GLUCOSE METER 142 mg/dL 70-110 H : TESTED A T [facility] 6720 (BEAKER) (test code = [place], 1538) [address]: Roll Icer/Techni carroll ID = [id number] for Gu y, Shahnaz BODY FLUID CELL COUNT WITH [id number] 22:19:44 Test Item Value Reference Range Interpretation Comments APPEARANCE FLUID Cloudy Clear A (BEAKER) (test code = 510) COLOR FLUID (BEAKER) [place] Colorless, Straw A (test code = 511) RBC FLUID (BEAKER) 858 /cu mm See_Comment H [Automat ed message] (test code = 513) The system which generated this result transmitted ref erence range: <=1. The reference range was not used to int erpret this result as normal/abnormal . ADJUSTED WBC FLUID 863 /cu mm See_Comment H [Automat ed message] (BEAKER) (test code = The stem which 0662) generated this result transmitted ref erence range: <=5. The reference range was not used to int erpret this result as normal/abnormal . LINING CELLS (BEAKER) 0 /cu mm See_Comment [Auto mated message] (test code = 1590) The syste m which generated this result transmitted ref erence range: <=1. The reference range was not used to int erpret this result as normal/abnormal . NEUTROPHILS FLUID 90 % (BEAKER) (test code = 1656) LYMPHS FLUID (BEAKER) 5 % (test code = 488) MONO/MACROPHAGE FLUID 5 % (BEAKER) (test code = 489) EOSINOPHILS FLUID 0 % (BEAKER) (test code = 491) BASO FLUID (BEAKER) 0 % (test code = 492) CONTAINER BODY FLUID EDTA Tube (BEAKER) (test code = 2873) [id number] 22:05:43 Test Item Value Reference Range Interpretation Comments MAGNESIUM (BEAKER) (test code = 1.7 mg/dL 1.6-2.6 627) Roll Icer ID - [id number] 22:05:43 Test Item Value Reference Range Interpretation Comments PHOSPHORUS (BEAKER) (test code = 3.2 mg/dL 2.3-4.7 604) Roll Icer ID - BSBASIC METABOLIC [id number] 22:05:42 Test Item Value Reference Range Interpretation Comments SODIUM (BEAKER) 140 meq/L 136-145 (test code = 381) POTASSIUM 3.5 meq/L 3.5-5.1 (BEAKER) (test code = 379) CHLORIDE (BEAKER) 102 meq/L 98-107 (test code = 382) CO2 (BEAKER) 28 meq/L 22-29 (test code = 355) BLOOD UREA 17 mg/dL 7-21 NITROGEN (BEAKER) (test code = 354) CREATININE 0.63 mg/dL 0.57-1.25 (BEAKER) (test code = 358) GLUCOSE RANDOM 123 mg/dL 70-105 H (BEAKER) (test code = 652) CALCIUM (BEAKER) 8.7 mg/dL 8.4-10.2 (test code = 697) EGFR (BEAKER) 124 Interpretatio n of eGFR (test code = mL/min/1.73 values Stage De scription 1092) sq m Result G1 Tyra l or high >=90 G2 Mildly decreased 60-89 G3a Mildl y to moderately 45-5 9 G3b Moderately to s everely 30-44 G4 Severl y decreased 15-29 G5 Kidne y failure <15Reported eGF R is based on the CKD-EPI 2020 equation that d oes not use a race coefficientEsti mated GFR is not as accur ate as Creatinine [place] in predicting glom erular filtration rate . Estimated GFR is not appl icable for dialysis patien ts Roll Icer ID - BSBLOOD GAS, [id number] 18:02:14 Test Item Value Reference Range Interpretation Comments PH ARTERIAL (BEAKER) (test code = 7.51 7.35-7.45 H 383) PCO2 ARTERIAL (BEAKER) (test code 36 mm Hg 35-45 = 384) PO2 ARTERIAL (BEAKER) (test code = 133 mm Hg 80-90 H 385) O2 SATURATION ARTERIAL (BEAKER) 98.9 % 96.0-97.0 H (test code = 386) HCO3 ARTERIAL (BEAKER) (test code 28 mmol/L 21-29 = 388) BASE EXCESS ARTERIAL (BEAKER) 5.1 mmol/L -2.0-3.0 H (test code = 387) PATIENT TEMPERATURE (BEAKER) (test 37.3 code = 1818) FIO2 (BEAKER) (test code = 1819) 60.0 POCT-GLUCOSE [id number] 18:01:30 Test Item Value Reference Range Interpretation Comments POC-GLUCOSE METER 112 mg/dL 70-110 H : TESTED A T [facility] 6720 (BEAKER) (test code = [place], 1538) [address]: Roll Icer/Techni carroll ID = [id number] for Damián jacobs (contract)Consuelo valeriead [id number] 13:51:31 Test Item Value Reference Range Interpretation Comments PHOSPHORUS (BEAKER) (test code = 3.7 mg/dL 2.3-4.7 604) Roll Icer ID - ADRYAN BBASIC METABOLIC [id number] 13:51:30 Test Item Value Reference Range Interpretation Comments SODIUM (BEAKER) 138 meq/L 136-145 (test code = 381) POTASSIUM 3.4 meq/L 3.5-5.1 L (BEAKER) (test code = 379) CHLORIDE (BEAKER) 101 meq/L 98-107 (test code = 382) CO2 (BEAKER) 29 meq/L 22-29 (test code = 355) BLOOD UREA 17 mg/dL 7-21 NITROGEN (BEAKER) (test code = 354) CREATININE 0.63 mg/dL 0.57-1.25 (BEAKER) (test code = 358) GLUCOSE RANDOM 128 mg/dL 70-105 H (BEAKER) (test code = 652) CALCIUM (BEAKER) 8.6 mg/dL 8.4-10.2 (test code = 697) EGFR (BEAKER) 124 Interpretatio n of eGFR (test code = mL/min/1.73 values Stage De scription 1092) sq m Result G1 Tyra l or high >=90 G2 Mildly decreased 60-89 G3a Mildl y to moderately 45-5 9 G3b Moderately to s everely 30-44 G4 Severl y decreased 15-29 G5 Kidney failure <15Reported eGF R is based on the CKD-EPI 2020 equation that d oes not use a race coefficientEsti mated GFR is not as accur ate as Creatinine Papi sandor in predicting glom erular filtration rate . Estimated GFR is not appl icable for dialysis patien ts Roll Icer ID - ADRYAN [id number] 13:51:30 Test Item Value Reference Range Interpretation Comments MAGNESIUM (DORIS) (test code = 1.8 mg/dL 1.6-2.6 627) Roll Icer ID - ADRYAN BPOCT-GLUCOSE [id number] 12:12:12 Test Item Value Reference Range Interpretation Comments POC-GLUCOSE METER 129 mg/dL 70-110 H : TESTED A T [facility] 6720 (DORIS) (test code = [place] [facility], 1538) [address]: Roll Icer/Techni carroll ID = [id number] for To reynaldo (contract) Consuelo tavia RAD, CHEST, 1 VIEW, NON [id number] 08:16:00Reason for exam:->intuabted, pneumothorax ,s/p CTShould this be performed at the bedside?->Yes [facility] 1985 Sex: MFINAL REPORT RAD, CHEST, 1 VIEW, NON DEPT INDICATION: intuabted, pneumothorax ,s/p CT COMPARISON: Prior day's exam FINDINGS: Portable frontal view of the chest. IMPRESSION: Support Lines: ET tube tip is 5cm superior to the akbar. Feeding tube descends below the diaphragm. Lungs and pleura: Lungs are hypoinflated compared to prior exam. Unchanged bilateral airspace opacities concerning for multifocal pneumonia versus multifocal edema. No significant pneumothorax. Heart and mediastinum: Stable contours. Stable surgical changes. Additional findings: None. Signed: Justin Cramer Verified Date/Time: 03/19/2022 08:16:47 Reading Location: [address] Reading Room El ectronically signed by: JUSTIN CRAMER MD on 03/19/2022 08:16 AMPOCT- GLUCOSE [id number] 05:51:12 Test Item Value Reference Range Interpretation Comments POC-GLUCOSE METER 128 mg/dL 70-110 H : TESTED A T [facility] 6720 (BEAKER) (test code = [place], 1538) [address]: Roll Icer/Techni carroll ID = [id number] for Toshia Mcfarlane CBC W/PLT COUNT & AUTO [id number] 02:55:25 Test Item Value Reference Range Interpretation Comments WHITE BLOOD CELL COUNT (BEAKER) 12.6 K/ L 3.5-10.5 H (test code = 775) RED BLOOD CELL COUNT (BEAKER) 3.06 M/ L 4.63-6.08 L (test code = 761) HEMOGLOBIN (BEAKER) (test code = 9.1 GM/DL 13.7-17.5 L 410) HEMATOCRIT (BEAKER) (test code = 29.0 % 40.1-51.0 L 411) MEAN CORPUSCULAR VOLUME (BEAKER) 95 fL 79-92 H (test code = 753) MEAN CORPUSCULAR HEMOGLOBIN 29.7 pg 25.7-32.2 (BEAKER) (test code = 751) MEAN CORPUSCULAR HEMOGLOBIN CONC 31.4 GM/DL 32.3-36.5 L (BEAKER) (test code = 752) RED CELL DISTRIBUTION WIDTH 15.3 % 11.6-14.4 H (BEAKER) (test code = 412) PLATELET COUNT (BEAKER) (test 504 K/CU MM 150-450 H code = 756) MEAN PLATELET VOLUME (BEAKER) 9.5 fL 9.4-12.4 (test code = 754) NUCLEATED RED BLOOD CELLS 0 /100 WBC 0-0 (BEAKER) (test code = 413) NEUTROPHILS RELATIVE PERCENT 71 % (BEAKER) (test code = 429) LYMPHOCYTES RELATIVE PERCENT 16 % (BEAKER) (test code = 430) MONOCYTES RELATIVE PERCENT 8 % (BEAKER) (test code = 431) EOSINOPHILS RELATIVE PERCENT 2 % (BEAKER) (test code = 432) BASOPHILS RELATIVE PERCENT 1 % (BEAKER) (test code = 437) NEUTROPHILS ABSOLUTE COUNT 8.99 K/ L 1.78-5.38 H (BEAKER) (test code = 670) LYMPHOCYTES ABSOLUTE COUNT 2.03 K/ L 1.32-3.57 (BEAKER) (test code = 414) MONOCYTES ABSOLUTE COUNT (BEAKER) 0.96 K/ L 0.30-0.82 H (test code = 415) EOSINOPHILS ABSOLUTE COUNT 0.28 K/ L 0.04-0.54 (BEAKER) (test code = 416) BASOPHILS ABSOLUTE COUNT (BEAKER) 0.09 K/ L 0.01-0.08 H (test code = 417) IMMATURE GRANULOCYTES-RELATIVE 2.30 % 0.00-1.00 H PERCENT (BEAKER) (test code = 2801) [id number] 02:49:31 Test Item Value Reference Range Interpretation Comments MAGNESIUM (BEAKER) (test code = 2.0 mg/dL 1.6-2.6 627) Roll Icer ID - PIAYA [id number] 02:49:31 Test Item Value Reference Range Interpretation Comments PHOSPHORUS (BEAKER) (test code = 2.9 mg/dL 2.3-4.7 604) Roll Icer ID - MALOU LBASIC METABOLIC [id number] 02:49:30 Test Item Value Reference Range Interpretation Comments SODIUM (BEAKER) 136 meq/L 136-145 (test code = 381) POTASSIUM 4.0 meq/L 3.5-5.1 (BEAKER) (test code = 379) CHLORIDE (BEAKER) 102 meq/L 98-107 (test code = 382) CO2 (BEAKER) 28 meq/L 22-29 (test code = 355) BLOOD UREA 19 mg/dL 7-21 NITROGEN (BEAKER) (test code = 354) CREATININE 0.54 mg/dL 0.57-1.25 L (BEAKER) (test code = 358) GLUCOSE RANDOM 121 mg/dL 70-105 H (BEAKER) (test code = 652) CALCIUM (BEAKER) 8.6 mg/dL 8.4-10.2 (test code = 697) EGFR (BEAKER) 129 Interpretatio n of eGFR (test code = mL/min/1.73 values Stage De scription 1092) sq m Result G1 Tyra l or high >=90 G2 Mildly decreased 60-89 G3a Mildl y to moderately 45-5 9 G3b Moderately to s everely 30-44 G4 Severl y decreased 15-29 G5 Kidney failure <15Reported eGF R is based on the CKD-EPI 2020 equation that d oes not use a race coefficientEsti mated GFR is not as accur ate as Creatinine Papi sandor in predicting glom erular filtration rate . Estimated GFR is not appl icable for dialysis patien ts Roll Icer ID - MALOU LVANCOMYCIN LEVEL, [id number] 02:42:30 Test Item Value Reference Range Interpretation Comments VANCOMYCIN TROUGH (BEAKER) (test 15.3 ug/mL 10.0-20.0 code = 522) Roll Icer ID - MALOU LCALCIUM, [id number] 02:28:26 Test Item Value Reference Range Interpretation Comments CALCIUM IONIZED (BEAKER) (test 1.02 mmol/L 1.12-1.27 L code = 698) PH, BLOOD (BEAKER) (test code = 7.50 1810) BLOOD GAS, [id number] 02:28:26 Test Item Value Reference Range Interpretation Comments PH ARTERIAL (BEAKER) (test code = 7.49 7.35-7.45 H 383) PCO2 ARTERIAL (BEAKER) (test code 42 mm Hg 35-45 = 384) PO2 ARTERIAL (BEAKER) (test code = 142 mm Hg 80-90 H 385) O2 SATURATION ARTERIAL (BEAKER) 99.0 % 96.0-97.0 H (test code = 386) HCO3 ARTERIAL (BEAKER) (test code 31 mmol/L 21-29 H = 388) BASE EXCESS ARTERIAL (BEAKER) 7.3 mmol/L -2.0-3.0 H (test code = 387) PATIENT TEMPERATURE (BEAKER) (test 37.5 code = 1818) FIO2 (BEAKER) (test code = 1819) 60.0 POCT-GLUCOSE [id number] 02:24:07 Test Item Value Reference Range Interpretation Comments POC-GLUCOSE METER 127 mg/dL 70-110 H : TESTED A T [facility] 6720 (BEAKER) (test code = [place], 1538) [address]: Roll Icer/Techni carroll ID = [id number] for Toshia Mcfarlane CT, [id number] 01:16:00Unlisted Reason for Exam - Click Yes and Enter Reason Below->NoIs this for enterography?->NoWill this procedure require oral contrast?->No [facility] : 1985 Sex: MFINAL REPORT CT, ABDOMEN \\T\\ PELVIS, WITH IV CONTRAST CLINICAL STATEMENT: Infection, gastroenteritis. COMPARISON: Limited ultrasound dated 03/18/2022. Dose modulation, iterative reconstruction, and/or weight-based adjustment of the mA/kV was utilized to reduce the radiation dose to aslow as reasonably achievable. FINDINGS: Mild layering bilateral pleural effusions. Bilateral lower lobe airspace disease/atelectatic changes consistent with pneumonia. Liver, spleen, pancreas, gallbladder, adrenal glands and kidneys are within normal limits. No hydronephrosis or biliary dilatation. Nodilated loops of bowel to suggest obstruction. Mild amount of stool in the colon. Appendix is normal. No free fluid or free air. No abdominal or pelvic lymphadenopathy. Abdominal aorta is within normallimits. Bladder decompressed by Gonzalez catheter. IMPRESSION: No significant suspicious findings for colitis. Bilateral lower lobe pneumonia suspected. Signed: Wilian Duron MDReport Verified Date/Time: 03/19/2022 01:16:54 POCT- GLUCOSE [id number] 18:59:42 Test Item Value Reference Range Interpretation Comments POC-GLUCOSE METER 116 mg/dL 70-110 H : TESTED A T [facility] 6720 ([facility]) (test code = [place] [facility], 1538) [address]: Roll Icer/Techni carroll ID = [id number] for Iwona Wolf U/S, ABDOMINAL, [id number] 18:30:00Abdomen limited area? Add comment if clarification is needed.->Right upper quadrantReason for exam:->acute [facility]anna[facility] : 1985 Sex: MFINAL REPORT U/S, ABDOMINAL, LIMITED CLINICAL HISTORY: acute alanna Comparison: NoneTECHNIQUE: Real time grayscale and color Doppler images of the right upper quadrant abdominal organswere obtained using a curved transducer. FINDINGS: Pancreas: Visualized portions are unremarkable Liver: Normal echotexture and echogenicity. Focal liver lesions: None. Portal vein: Normal, hepatopetalflow. Normal diameter main portal vein. Bile ducts: No biliary dilation. Common bile duct was not seen. Gallbladder: The gallbladder is not well evaluated. Gallbladder appears decompressed. No stones or sludge is appreciated. Right kidney: Normal in size and cortical thickness. No hydronephrosis, massor stone. Ascites: None Visualized aorta and IVC: Unremarkable. Incidentally seen right pleural effusion. MEASUREMENTS:Liver: 15.3 cm Common Duct: Not seen Right Kidney: 9.8 cm Aorta: 2.0 cm IMPRESSION: Limited evaluation of the gallbladder and common bile duct. No sonographic evidence of acute cholecystitis. Evaluation with cross-sectional imaging may be helpful. Right pleural effusion. Signed: Irma Arechiga MDReport Verified Date/Time: 03/18/2022 18:30:19 Reading Location: [address] Transitional Reading Room BASIC METABOLIC [id number] 16:59:56 Test Item Value Reference Range Interpretation Comments SODIUM (BEAKER) 139 meq/L 136-145 (test code = 381) POTASSIUM 3.9 meq/L 3.5-5.1 (BEAKER) (test code = 379) CHLORIDE (BEAKER) 102 meq/L 98-107 (test code = 382) CO2 (BEAKER) 29 meq/L 22-29 (test code = 355) BLOOD UREA 21 mg/dL 7-21 NITROGEN (BEAKER) (test code = 354) CREATININE 0.53 mg/dL 0.57-1.25 L (BEAKER) (test code = 358) GLUCOSE RANDOM 116 mg/dL 70-105 H (BEAKER) (test code = 652) CALCIUM (BEAKER) 8.7 mg/dL 8.4-10.2 (test code = 697) EGFR (BEAKER) 130 Interpretatio n of eGFR (test code = mL/min/1.73 values Stage De scription 1092) sq m Result G1 Tyra l or high >=90 G2 Mildly decreased 60-89 G3a Mildl y to moderately 45-5 9 G3b Moderately to s everely 30-44 G4 Severl y decreased 15-29 G5 Kidney failure <15Reported eGF R is based on the CKD-EPI 2020 equation that d oes not use a race coefficientEsti mated GFR is not as accur ate as Creatinine Papi patten in predicting glom erular filtration rate . Estimated GFR is not appl icable for dialysis patien ts Roll Icer ID - NELLY [id number] 16:59:56 Test Item Value Reference Range Interpretation Comments MAGNESIUM (BEAKER) (test code = 1.9 mg/dL 1.6-2.6 627) Roll Icer ID - NELLY MBLOOD GAS, [id number] 16:38:07 Test Item Value Reference Range Interpretation Comments PH ARTERIAL (BEAKER) (test code = 7.50 7.35-7.45 H 383) PCO2 ARTERIAL (BEAKER) (test code 41 mm Hg 35-45 = 384) PO2 ARTERIAL (BEAKER) (test code = 220 mm Hg 80-90 H 385) O2 SATURATION ARTERIAL (BEAKER) 99.5 % 96.0-97.0 H (test code = 386) HCO3 ARTERIAL (BEAKER) (test code 32 mmol/L 21-29 H = 388) BASE EXCESS ARTERIAL (BEAKER) 7.9 mmol/L -2.0-3.0 H (test code = 387) PATIENT TEMPERATURE (BEAKER) (test 37.0 code = 1818) FIO2 (BEAKER) (test code = 1819) 21.0 POCT-GLUCOSE [id number] 12:33:30 Test Item Value Reference Range Interpretation Comments POC-GLUCOSE METER 126 mg/dL 70-110 H : TESTED A T [facility] 6720 (BEAKER) (test code = [place] [facility], 1538) [address]: Roll Icer/Techni carroll ID = [id number] for Iwona Wolf SPUTUM CULTURE + GRAM [id number] 10:39:03 Test Item Value Reference Range Interpretation Comments CULTURE (BEAKER) See comment (test code = 1095) GRAM STAIN RESULT 2+ White blood cells (BEAKER) (test code = seen 1123) GRAM STAIN RESULT 0-5 epithelial cells (BEAKER) (test code = 020364) GRAM STAIN RESULT No organisms seen (BEAKER) (test code = 209981) 1+ YeastNo Normal respiratory stacy presentHEPATIC FUNCTION [id number] 09:06:20 Test Item Value Reference Range Interpretation Comments TOTAL PROTEIN (BEAKER) (test code = 5.8 gm/dL 6.0-8.3 L 770) ALBUMIN (BEAKER) (test code = 1145) 2.8 g/dL 3.5-5.0 L BILIRUBIN TOTAL (BEAKER) (test code 0.2 mg/dL 0.2-1.2 = 377) BILIRUBIN DIRECT (BEAKER) (test 0.2 mg/dL 0.1-0.5 code = 706) ALKALINE PHOSPHATASE (BEAKER) (test 109 U/L 40-150 code = 346) AST (SGOT) (BEAKER) (test code = 55 U/L 5-34 H 353) ALT (SGPT) (BEAKER) (test code = 40 U/L 6-55 347) Roll Icer ID - MARCOSpecimen slightly lipemicRAD, CHEST, 1 VIEW, NON DEPT 2022-03-18 07:31:00Reason for exam:->intuabted, pneumothorax ,s/p CTShould this be performed at the bedside?->Yes [facility] : 1985 Sex: MFINAL REPORT RAD, CHEST, 1 VIEW, NON DEPT INDICATION: intuabted, pneumothorax ,s/p CT COMPARISON: Prior day's exam FINDINGS: Portable frontal view of the chest. IMPRESSION: Support Lines: ET tube tip is 3-4 cm superior to the akbar. Feeding tube descends below the diaphragm. Lungs and pleura: Lungs are hypoinflated compared to prior exam. Unchanged bilateral airspace opacities concerning for multifocal pneumonia versus multifocal edema. No significant pneumothorax. Heart and mediastinum: Stable contours. Additional findings: None. Signed: Justin Cramer MDReport Verified Date/Time: 03/18/2022 07:31:34 IUM, [id number] 05:07:53 Test Item Value Reference Range Interpretation Comments CALCIUM IONIZED (BEAKER) (test 1.06 mmol/L 1.12-1.27 L code = 698) PH, BLOOD (BEAKER) (test code = 7.47 1810) BLOOD GAS, [id number] 04:38:24 Test Item Value Reference Range Interpretation Comments PH ARTERIAL (BEAKER) (test code = 7.45 7.35-7.45 383) PCO2 ARTERIAL (BEAKER) (test code 46 mm Hg 35-45 H = 384) PO2 ARTERIAL (BEAKER) (test code = 147 mm Hg 80-90 H 385) O2 SATURATION ARTERIAL (BEAKER) 98.9 % 96.0-97.0 H (test code = 386) HCO3 ARTERIAL (BEAKER) (test code 31 mmol/L 21-29 H = 388) BASE EXCESS ARTERIAL (BEAKER) 6.7 mmol/L -2.0-3.0 H (test code = 387) PATIENT TEMPERATURE (BEAKER) (test 38.4 code = 1818) FIO2 (BEAKER) (test code = 1819) 65.0 [id number] 03:18:25 Test Item Value Reference Range Interpretation Comments MAGNESIUM (BEAKER) (test code = 1.9 mg/dL 1.6-2.6 627) Roll Icer ID - NELLY [id number] 03:18:25 Test Item Value Reference Range Interpretation Comments PHOSPHORUS (BEAKER) (test code = 2.6 mg/dL 2.3-4.7 604) Roll Icer ID - NELLY MBASIC METABOLIC [id number] 03:18:24 Test Item Value Reference Range Interpretation Comments SODIUM (BEAKER) 137 meq/L 136-145 (test code = 381) POTASSIUM 3.9 meq/L 3.5-5.1 (BEAKER) (test code = 379) CHLORIDE (BEAKER) 103 meq/L 98-107 (test code = 382) CO2 (BEAKER) 29 meq/L 22-29 (test code = 355) BLOOD UREA 21 mg/dL 7-21 NITROGEN (BEAKER) (test code = 354) CREATININE 0.56 mg/dL 0.57-1.25 L (BEAKER) (test code = 358) GLUCOSE RANDOM 129 mg/dL 70-105 H (BEAKER) (test code = 652) CALCIUM (BEAKER) 8.2 mg/dL 8.4-10.2 L (test code = 697) EGFR (BEAKER) 128 Interpretatio n of eGFR (test code = mL/min/1.73 values Stage De scription 1092) sq m Result G1 Tyra l or high >=90 G2 Mildly decreased 60-89 G3a Mildl y to moderately 45-5 9 G3b Moderately to s everely 30-44 G4 Severl y decreased 15-29 G5 Kidney failure <15Reported eGF R is based on the CKD-EPI 2020 equation that d oes not use a race coefficientEsti mated GFR is not as accur ate as Creatinine Papi patten in predicting glom erular filtration rate . Estimated GFR is not appl icable for dialysis patien ts Roll Icer ID - NELLY MCBC W/PLT COUNT & AUTO [id number] 03:03:00 Test Item Value Reference Range Interpretation Comments WHITE BLOOD CELL COUNT (BEAKER) 11.9 K/ L 3.5-10.5 H (test code = 775) RED BLOOD CELL COUNT (BEAKER) 2.99 M/ L 4.63-6.08 L (test code = 761) HEMOGLOBIN (BEAKER) (test code = 8.9 GM/DL 13.7-17.5 L 410) HEMATOCRIT (BEAKER) (test code = 27.5 % 40.1-51.0 L 411) MEAN CORPUSCULAR VOLUME (BEAKER) 92 fL 79-92 (test code = 753) MEAN CORPUSCULAR HEMOGLOBIN 29.8 pg 25.7-32.2 (BEAKER) (test code = 751) MEAN CORPUSCULAR HEMOGLOBIN CONC 32.4 GM/DL 32.3-36.5 (BEAKER) (test code = 752) RED CELL DISTRIBUTION WIDTH 15.2 % 11.6-14.4 H (BEAKER) (test code = 412) PLATELET COUNT (BEAKER) (test 416 K/CU MM 150-450 code = 756) MEAN PLATELET VOLUME (BEAKER) 9.6 fL 9.4-12.4 (test code = 754) NUCLEATED RED BLOOD CELLS 0 /100 WBC 0-0 (BEAKER) (test code = 413) NEUTROPHILS RELATIVE PERCENT 66 % (BEAKER) (test code = 429) LYMPHOCYTES RELATIVE PERCENT 19 % (BEAKER) (test code = 430) MONOCYTES RELATIVE PERCENT 8 % (BEAKER) (test code = 431) EOSINOPHILS RELATIVE PERCENT 2 % (BEAKER) (test code = 432) BASOPHILS RELATIVE PERCENT 0 % (BEAKER) (test code = 437) NEUTROPHILS ABSOLUTE COUNT 7.90 K/ L 1.78-5.38 H (BEAKER) (test code = 670) LYMPHOCYTES ABSOLUTE COUNT 2.27 K/ L 1.32-3.57 (BEAKER) (test code = 414) MONOCYTES ABSOLUTE COUNT (BEAKER) 0.95 K/ L 0.30-0.82 H (test code = 415) EOSINOPHILS ABSOLUTE COUNT 0.24 K/ L 0.04-0.54 (BEAKER) (test code = 416) BASOPHILS ABSOLUTE COUNT (BEAKER) 0.05 K/ L 0.01-0.08 (test code = 417) IMMATURE GRANULOCYTES-RELATIVE 4.40 % 0.00-1.00 H PERCENT (BEAKER) (test code = 2801) POCT-GLUCOSE [id number] 18:55:15 Test Item Value Reference Range Interpretation Comments POC-GLUCOSE METER 121 mg/dL 70-110 H : TESTED A T [facility] 6720 (BEAKER) (test code = [place] [facility], 1538) [address]: Roll Icer/Techni carroll ID = [id number] for Iwona Wolf BASIC METABOLIC [id number] 18:24:23 Test Item Value Reference Range Interpretation Comments SODIUM (BEAKER) 139 meq/L 136-145 (test code = 381) POTASSIUM 3.9 meq/L 3.5-5.1 (BEAKER) (test code = 379) CHLORIDE (BEAKER) 103 meq/L 98-107 (test code = 382) CO2 (BEAKER) 30 meq/L 22-29 H (test code = 355) BLOOD UREA 21 mg/dL 7-21 NITROGEN (BEAKER) (test code = 354) CREATININE 0.53 mg/dL 0.57-1.25 L (BEAKER) (test code = 358) GLUCOSE RANDOM 118 mg/dL 70-105 H (BEAKER) (test code = 652) CALCIUM (BEAKER) 8.4 mg/dL 8.4-10.2 (test code = 697) EGFR (BEAKER) 130 Interpretatio n of eGFR (test code = mL/min/1.73 values Stage De scription 1092) sq m Result G1 Tyra l or high >=90 G2 Mildly decreased 60-89 G3a Mildl y to moderately 45-5 9 G3b Moderately to s everely 30-44 G4 Severl y decreased 15-29 G5 Kidne y failure <15Reported eGF R is based on the CKD-EPI 2020 equation that d oes not use a race coefficientEsti mated GFR is not as accur ate as Creatinine Papi sandor in predicting glom erular filtration rate . Estimated GFR is not appl icable for dialysis patien ts Roll Icer ID - MALOU [id number] 18:24:23 Test Item Value Reference Range Interpretation Comments MAGNESIUM (BEAKER) (test code = 1.9 mg/dL 1.6-2.6 627) Roll Icer ID Aubrey [place] LBLOOD GAS, [id number] 17:46:41 Test Item Value Reference Range Interpretation Comments PH ARTERIAL (BEAKER) (test code = 7.51 7.35-7.45 H 383) PCO2 ARTERIAL (BEAKER) (test code 42 mm Hg 35-45 = 384) PO2 ARTERIAL (BEAKER) (test code = 168 mm Hg 80-90 H 385) O2 SATURATION ARTERIAL (BEAKER) 99.3 % 96.0-97.0 H (test code = 386) HCO3 ARTERIAL (BEAKER) (test code 32 mmol/L 21-29 H = 388) BASE EXCESS ARTERIAL (BEAKER) 8.5 mmol/L -2.0-3.0 H (test code = 387) PATIENT TEMPERATURE (BEAKER) (test 37.0 code = 1818) FIO2 (BEAKER) (test code = 1819) 21.0 SARS-COV2/RT-PCR ([facility])2022-03-17 15:42:37 Test Item Value Reference Range Interpretation Comments SARS-COV2/RT-PCR Negative Negative The SARS-Co V-2 target (test code = nucleic acids a re not 6509799) detected in thi s specimen. Negative result s do not preclude SARS-C oV-2 infection and s hould not be used as the samantha e basis for patient managem ent decisions. Nega tive results must be combine d with clinical observ ations, patient history , and epidemiological information. A false negativ e result may occur if a spec imen is improperly raudel ected, transported or handled. This SARS CoV-2 test is a rapid, real-time RT-PC R test intended for th e qualitative detection of nu cleic acid from SARS-CoV-2 in a nasopharyngeal swab specimen collected from individuals suspected of CO VID-19 by their healthcar e provider. This test has been authorized by FDA under an EUA for use by authorized laboratories. This test is only authorized for the duration of the declaration that circumstances exist justifying the authorization of emergency use of in vitro diagnostic tests for detection and/or diagnosis of COVID-19 under Section 564(b)(1) of the Federal Food, Drug and Cosmetic Act, 21 U.S.C. 360bbb-3(b)(1), unless the authorization is terminated or revoked sooner. Fact Sheet for Healthcare Providers: https://www.[employer].co m/Documents/Xpert%20Xpress%20SARS%20CoV-2/Fact%20Sheets/3023802%74SQNL-QBD-6%20 HEALTHCARE%20PROVIDERS%20FACT%20SHEET.pdf Fact Sheet for Healthcare Patients: https://www.Spangle/Documents/Xpert%20Xp ress%20SARS%20CoV-2/Fact%20Sheets/3023801%74JJES-AKY-8%20PATIENT%20FACT%20SHEET .pdfVANCOMYCIN LEVEL, [id number] 15:00:49 Test Item Value Reference Range Interpretation Comments VANCOMYCIN TROUGH (BEAKER) (test 7.3 ug/mL 10.0-20.0 L code = 522) Roll Icer ID - MALOU [id number] 14:14:00 Test Item Value Reference Range Interpretation Comments LIPASE (BEAKER) (test code = 749) 39 U/L 8-78 Roll Icer ID - MARCOSPUTUM CULTURE + GRAM [id number] 11:56:18 Test Item Value Reference Range Interpretation Comments CULTURE (BEAKER) (test code See comment = 9545) GRAM STAIN RESULT (BEAKER) 1+ WBCs (test code = 1123) GRAM STAIN RESULT (BEAKER) <1+ budding yeast (test code = 600925) 1+ yeastNo Normal respiratory stacy presentPOCT-GLUCOSE [id number] 11:29:34 Test Item Value Reference Range Interpretation Comments POC-GLUCOSE METER 138 mg/dL 70-110 H : TESTED A T [facility] 6720 (BEAKER) (test code = [place], 1538) [address]: Roll Icer/Techni carroll ID = [id number] for Pa Iwona mohan Venous doppler arms [id number] 08:26:21Ejection FractionSLEH ECHO [facility] bilateral 2022-03-17 08:26:21Ejection FractionSLEH ECHO [facility]LAB [facility], 1 VIEW, NON [id number] 06:33:00Reason for exam:->intuabted, pneumothorax ,s/p CTShould this be performed at the bedside?->YesMILLS-[facility]Name[facility] NEENA TOBIAS : 1985 Sex: MFINAL REPORT RAD, CHEST, 1 VIEW, NON DEPT INDICATION: intuabted, pneumothorax ,s/p CT COMPARISON: Prior day's exam FINDINGS: Portable frontal view of the chest. IMPRESSION: Support Lines: ET tube tip is 3-4 cm superior to the akbar. Feeding tube descends below the diaphragm. Lungs and pleura: Lungs are hypoinflated compared to prior exam. Increased bilateral airspace opacities concerning for multifocal pneumonia versus multifocal edema. No significant pneumothorax. Heart and mediastinum: Stable contours. Additional findings: None. Signed: Justin Cramereport Verified Date/Time: 03/17/2022 06:33:37 C METABOLIC [id number] 03:45:38 Test Item Value Reference Range Interpretation Comments SODIUM (BEAKER) 140 meq/L 136-145 (test code = 381) POTASSIUM 3.9 meq/L 3.5-5.1 (BEAKER) (test code = 379) CHLORIDE (BEAKER) 104 meq/L 98-107 (test code = 382) CO2 (BEAKER) 30 meq/L 22-29 H (test code = 355) BLOOD UREA 22 mg/dL 7-21 H NITROGEN (BEAKER) (test code = 354) CREATININE 0.55 mg/dL 0.57-1.25 L (BEAKER) (test code = 358) GLUCOSE RANDOM 122 mg/dL 70-105 H (BEAKER) (test code = 652) CALCIUM (BEAKER) 8.0 mg/dL 8.4-10.2 L (test code = 697) EGFR (BEAKER) 129 Interpretatio n of eGFR (test code = mL/min/1.73 values Stage De scription 1092) sq m Result G1 Tyra l or high >=90 G2 Mildly decreased 60-89 G3a Mildl y to moderately 45-5 9 G3b Moderately to s everely 30-44 G4 Severl y decreased 15-29 G5 Kidney failure <15Reported eGF R is based on the CKD-EPI 2020 equation that d oes not use a race coefficientEsti mated GFR is not as accur ate as Creatinine Papi sandor in predicting glom erular filtration rate . Estimated GFR is not appl icable for dialysis patien ts Roll Icer ID - PIAYA [id number] 03:45:38 Test Item Value Reference Range Interpretation Comments MAGNESIUM (BEAKER) (test code = 2.0 mg/dL 1.6-2.6 627) Roll Icer ID - MALOU [id number] 03:45:38 Test Item Value Reference Range Interpretation Comments PHOSPHORUS (BEAKER) (test code = 2.3 mg/dL 2.3-4.7 604) Roll Icer ID - MALOU LCALCIUM, [id number] 03:33:09 Test Item Value Reference Range Interpretation Comments CALCIUM IONIZED (BEAKER) (test 1.02 mmol/L 1.12-1.27 L code = 698) PH, BLOOD (BEAKER) (test code = 7.49 1810) BLOOD GAS, [id number] 03:33:09 Test Item Value Reference Range Interpretation Comments PH ARTERIAL (BEAKER) (test code = 7.51 7.35-7.45 H 383) PCO2 ARTERIAL (BEAKER) (test code 42 mm Hg 35-45 = 384) PO2 ARTERIAL (BEAKER) (test code = 127 mm Hg 80-90 H 385) O2 SATURATION ARTERIAL (BEAKER) 98.8 % 96.0-97.0 H (test code = 386) HCO3 ARTERIAL (BEAKER) (test code 32 mmol/L 21-29 H = 388) BASE EXCESS ARTERIAL (BEAKER) 8.3 mmol/L -2.0-3.0 H (test code = 387) PATIENT TEMPERATURE (BEAKER) (test 36.2 code = 1818) FIO2 (BEAKER) (test code = 1819) 50.0 CBC W/PLT COUNT & AUTO [id number] 03:00:51 Test Item Value Reference Range Interpretation Comments WHITE BLOOD CELL COUNT (BEAKER) 12.2 K/ L 3.5-10.5 H (test code = 775) RED BLOOD CELL COUNT (BEAKER) 3.01 M/ L 4.63-6.08 L (test code = 761) HEMOGLOBIN (BEAKER) (test code = 8.9 GM/DL 13.7-17.5 L 410) HEMATOCRIT (BEAKER) (test code = 27.7 % 40.1-51.0 L 411) MEAN CORPUSCULAR VOLUME (BEAKER) 92 fL 79-92 (test code = 753) MEAN CORPUSCULAR HEMOGLOBIN 29.6 pg 25.7-32.2 (BEAKER) (test code = 751) MEAN CORPUSCULAR HEMOGLOBIN CONC 32.1 GM/DL 32.3-36.5 L (BEAKER) (test code = 752) RED CELL DISTRIBUTION WIDTH 15.3 % 11.6-14.4 H (BEAKER) (test code = 412) PLATELET COUNT (BEAKER) (test 348 K/CU MM 150-450 code = 756) MEAN PLATELET VOLUME (BEAKER) 9.9 fL 9.4-12.4 (test code = 754) NUCLEATED RED BLOOD CELLS 0 /100 WBC 0-0 (BEAKER) (test code = 413) NEUTROPHILS RELATIVE PERCENT 65 % (BEAKER) (test code = 429) LYMPHOCYTES RELATIVE PERCENT 20 % (BEAKER) (test code = 430) MONOCYTES RELATIVE PERCENT 9 % (BEAKER) (test code = 431) EOSINOPHILS RELATIVE PERCENT 1 % (BEAKER) (test code = 432) BASOPHILS RELATIVE PERCENT 0 % (BEAKER) (test code = 437) NEUTROPHILS ABSOLUTE COUNT 7.95 K/ L 1.78-5.38 H (BEAKER) (test code = 670) LYMPHOCYTES ABSOLUTE COUNT 2.41 K/ L 1.32-3.57 (BEAKER) (test code = 414) MONOCYTES ABSOLUTE COUNT (BEAKER) 1.06 K/ L 0.30-0.82 H (test code = 415) EOSINOPHILS ABSOLUTE COUNT 0.14 K/ L 0.04-0.54 (BEAKER) (test code = 416) BASOPHILS ABSOLUTE COUNT (BEAKER) 0.04 K/ L 0.01-0.08 (test code = 417) IMMATURE GRANULOCYTES-RELATIVE 5.00 % 0.00-1.00 H PERCENT (BEAKER) (test code = 2801) BLOOD GAS, [id number] 20:03:22 Test Item Value Reference Range Interpretation Comments PH ARTERIAL (BEAKER) (test code = 7.47 7.35-7.45 H 383) PCO2 ARTERIAL (BEAKER) (test code 45 mm Hg 35-45 = 384) PO2 ARTERIAL (BEAKER) (test code = 260 mm Hg 80-90 H 385) O2 SATURATION ARTERIAL (BEAKER) 99.6 % 96.0-97.0 H (test code = 386) HCO3 ARTERIAL (BEAKER) (test code 32 mmol/L 21-29 H = 388) BASE EXCESS ARTERIAL (BEAKER) 7.9 mmol/L -2.0-3.0 H (test code = 387) PATIENT TEMPERATURE (BEAKER) (test 38.0 code = 1818) FIO2 (BEAKER) (test code = 1819) 50.0 POCT-GLUCOSE [id number] 18:40:45 Test Item Value Reference Range Interpretation Comments POC-GLUCOSE METER 123 mg/dL 70-110 H : TESTED A T [facility] 6720 (BEAKER) (test code = [place] [facility], 1538) [address]: Roll Icer/Techni carroll ID = [id number] for IB RAHIM ANDERSNANNETTE RAD, CHEST, 1 VIEW, NON [id number] 17:26:00Reason for exam:->Chest tube removalShould this be performed at the bedside?->Yes [facility] : 1985 Sex: MFINAL REPORT TECHNIQUE: Frontal view of the chest. INDICATION: Chest tube removal. COMPARISON: 03/16/2022 at 1:05 AM. FINDINGS: LINES/TUBES: Endotracheal tube tip terminates 3.8 cm above the level of the akbar. Feeding tube extends below the diaphragm; tip incompletely included on this examination. Removal of the right pigtail pleural catheter. Left PICC line tip projects over the left axilla. HEART AND MEDIASTINUM: Cardiomediastinal contour is within normal limits. LUNGS: Perihilarinterstitial and alveolar opacities, asymmetrically prominent on the left, slightly increased compared to the prior examination. PLEURA: Small bilateral layering pleural effusions, slightly increased. No pneumothorax. SOFT TISSUES AND BONES: Unremarkable. IMPRESSION: 1. Removal of right pigtail pleural catheter. No pneumothorax. Endotracheal tube and feeding tube remain present.2. Slight increase in perihilar interstitial and alveolar opacities suggesting worsening edema. Increase in small bilateral pleural effusions. Signed: Jesse Sarmiento MDReport Verified Date/Time: 03/16/2022 17:26:50 [id number] 17:01:28 Test Item Value Reference Range Interpretation Comments MAGNESIUM (BEAKER) (test code = 1.7 mg/dL 1.6-2.6 627) Roll Icer ID - BSBASIC METABOLIC [id number] 17:01:27 Test Item Value Reference Range Interpretation Comments SODIUM (BEAKER) 144 meq/L 136-145 (test code = 381) POTASSIUM 3.7 meq/L 3.5-5.1 (BEAKER) (test code = 379) CHLORIDE (BEAKER) 105 meq/L 98-107 (test code = 382) CO2 (BEAKER) 30 meq/L 22-29 H (test code = 355) BLOOD UREA 24 mg/dL 7-21 H NITROGEN (BEAKER) (test code = 354) CREATININE 0.59 mg/dL 0.57-1.25 (BEAKER) (test code = 358) GLUCOSE RANDOM 130 mg/dL 70-105 H (BEAKER) (test code = 652) CALCIUM (BEAKER) 8.6 mg/dL 8.4-10.2 (test code = 697) EGFR (BEAKER) 126 Interpretatio n of eGFR (test code = mL/min/1.73 values Stage De scription 1092) sq m Result G1 Norm al or high >=90 G2 Mildly decreased 60-89 G3a Mildl y to moderately 45-5 9 G3b Moderately to s everely 30-44 G4 Severl y decreased 15-29 G5 Kidne y failure <15Reported eGF R is based on the CKD-EPI 2020 equation that d oes not use a race coefficientEsti mated GFR is not as accur ate as Creatinine Papi sandor in predicting glom erular filtration rate . Estimated GFR is not appl icable for dialysis patien ts Roll Icer ID - BSPOCT-GLUCOSE [id number] 11:35:47 Test Item Value Reference Range Interpretation Comments POC-GLUCOSE METER 147 mg/dL 70-110 H : TESTED A T [facility] 6720 (DORIS) (test code = [place], 1538) [address]: Roll Icer/Techni carroll ID = [id number] for Iwona Wolf [id number] 10:51:48 Test Item Value Reference Range Interpretation Comments PROCALCITONIN (DORIS) (test code 0.19 ng/mL <0.05 H = 3036) SEPSIS RISK (ng/mL)Low: 0.05-0.50Intermediate: 0.51-2.00High: >=2.01Venous doppler legs [id number] 10:19:38Ejection FractionSLEH ECHO [facility]ARTLAB [facility] bilateral 2022-03-16 10:19:38Ejection FractionSLE ECHO HEARTLAB [facility], 1 V[facility], NON [id number] 08:18:00Reason for exam:->intuabted, pneumothorax ,s/p CTShould this be performed at the bedside?->Yes[facility] : 1985 Sex: MFINAL REPORT CLINICAL HISTORY: intubated, pneumothorax ,s/p CT TECHNIQUE: 1 view ofthe chest. COMPARISON: 03/15/2022 IMPRESSION: The supporting lines and tubes are similar appearing. Diffuse bilateral airspace opacities are grossly unchanged. Small bilateral pleural effusions are grossly unchanged. The cardiomediastinal silhouette is magnified by technique. No evidence of pneumothorax. Signed: Collette Weldon MDReport Verified Date/Time: 03/16/2022 08:18:38 Reading Location: [address] Reading Room HEPATIC FUNCTION PANEL 2022-03-16 08:14:34 Test Item Value Reference Range Interpretation Comments TOTAL PROTEIN (BEAKER) (test code = 5.5 gm/dL 6.0-8.3 L 770) ALBUMIN (BEAKER) (test code = 1145) 2.7 g/dL 3.5-5.0 L BILIRUBIN TOTAL (BEAKER) (test code 0.2 mg/dL 0.2-1.2 = 377) BILIRUBIN DIRECT (BEAKER) (test 0.1 mg/dL 0.1-0.5 code = 706) ALKALINE PHOSPHATASE (BEAKER) (test 117 U/L 40-150 code = 346) AST (SGOT) (BEAKER) (test code = 29 U/L 5-34 353) ALT (SGPT) (BEAKER) (test code = 43 U/L 6-55 347) Roll Icer ID - MARCOUrinalysis without [id number] 06:48:08 Test Item Value Reference Range Interpretation Comments Color, UA (test code = Yellow 5778-6) Clarity, UA (test code = Clear 5767-9) Specific Mobile, UA (test 1.031 1.001-1.035 code = 5811-5) pH, UA (test code = 7.5 5.0-8.0 5803-2) Protein, UA (test code = 50 mg/dL Negative A 78634-9) Glucose, UA (test code = Negative Negative 365) Ketones, UA (test code = Negative Negative 2514-8) Bilirubin, UA (test code = Negative Negative 50804-9) Blood, UA (test code = Negative Negative 57291-8) Nitrite, UA (test code = Negative Negative 5802-4) Leukocytes, UA (test code Negative Negative = 5799-2) Urobilinogen, UA (test 0.2 0.2-1.0 code = 03724-6) Specimen Source (test code = 2795) CHRISTINA (test code = CHRISTINA) Roll Icer ID - [auto]Roll Icer ID - tech Lab Interpretation (test Abnormal code = 72214-0) [facility]inal[facility] without [id number] 06:48:08 Test Item Value Reference Range Interpretation Comments Color, UA (test code = Yellow 5778-6) Clarity, UA (test code = Clear 5767-9) Specific Mobile, UA (test 1.031 1.001-1.035 code = 5811-5) pH, UA (test code = 7.5 5.0-8.0 5803-2) Protein, UA (test code = 50 mg/dL Negative A 23169-4) Glucose, UA (test code = Negative Negative 365) Ketones, UA (test code = Negative Negative 2514-8) Bilirubin, UA (test code = Negative Negative 24741-1) Blood, UA (test code = Negative Negative 73071-1) Nitrite, UA (test code = Negative Negative 5802-4) Leukocytes, UA (test code Negative Negative = 5799-2) Urobilinogen, UA (test 0.2 0.2-1.0 code = 33447-4) Specimen Source (test code = 2795) CHRISTINA (test code = CHRISTINA) Roll Icer ID - [auto]Roll Icer ID - tech Lab Interpretation (test Abnormal code = 84195-6) [facility] HospitalURINALYSIS WITHOUT [id number] 06:48:08 Test Item Value Reference Range Interpretation Comments COLOR (BEAKER) (test code = 470) Yellow CLARITY (BEAKER) (test code = 469) Clear SPECIFIC GRAVITY UA (BEAKER) (test 1.031 1.001-1.035 code = 468) PH UA (BEAKER) (test code = 467) 7.5 5.0-8.0 PROTEIN UA (BEAKER) (test code = 50 mg/dL Negative A 464) GLUCOSE UA (BEAKER) (test code = Negative Negative 365) KETONES UA (BEAKER) (test code = Negative Negative 371) BILIRUBIN UA (BEAKER) (test code = Negative Negative 462) BLOOD UA (BEAKER) (test code = 461) Negative Negative NITRITE UA (BEAKER) (test code = Negative Negative 465) LEUKOCYTE ESTERASE UA (BEAKER) (test Negative Negative code = 466) UROBILINOGEN UA (BEAKER) (test code 0.2 0.2-1.0 = 463) SOURCE(BEAKER) (test code = 2795) Roll Icer ID - [auto]Roll Icer ID - techPOCT-GLUCOSE [id number] 06:31:33 Test Item Value Reference Range Interpretation Comments POC-GLUCOSE METER 110 mg/dL 70-110 : TESTED A T [facility] 6720 (BEAKER) [facility] = 1538) [address]: Roll Icer/Techni carroll ID = [id number] for SUGU , SHEENAMOL BLOOD GAS, [id number] 04:47:46 Test Item Value Reference Range Interpretation Comments PH ARTERIAL (BEAKER) (test code = 7.48 7.35-7.45 H 383) PCO2 ARTERIAL (BEAKER) (test code 50 mm Hg 35-45 H = 384) PO2 ARTERIAL (BEAKER) (test code 109 mm Hg 80-90 H = 385) O2 SATURATION ARTERIAL (BEAKER) 98.0 % 96.0-97.0 H (test code = 386) HCO3 ARTERIAL (BEAKER) (test code 36 mmol/L 21-29 H = 388) BASE EXCESS ARTERIAL (BEAKER) 11.6 mmol/L -2.0-3.0 H (test code = 387) PATIENT TEMPERATURE (BEAKER) 38.0 (test code = 1818) FIO2 (BEAKER) (test code = 1819) 50.0 CALCIUM, [id number] 04:47:46 Test Item Value Reference Range Interpretation Comments CALCIUM IONIZED (BEAKER) (test 1.07 mmol/L 1.12-1.27 L code = 698) PH, BLOOD (BEAKER) (test code = 7.50 1810) [id number] 04:09:18 Test Item Value Reference Range Interpretation Comments MAGNESIUM (BEAKER) (test code = 2.1 mg/dL 1.6-2.6 627) Roll Icer ID - MALOU [id number] 04:09:18 Test Item Value Reference Range Interpretation Comments PHOSPHORUS (BEAKER) (test code = 3.1 mg/dL 2.3-4.7 604) Roll Icer ID - MALOU LBASIC METABOLIC [id number] 04:09:17 Test Item Value Reference Range Interpretation Comments SODIUM (BEAKER) 143 meq/L 136-145 (test code = 381) POTASSIUM 4.0 meq/L 3.5-5.1 (BEAKER) (test code = 379) CHLORIDE (BEAKER) 104 meq/L 98-107 (test code = 382) CO2 (BEAKER) 32 meq/L 22-29 H (test code = 355) BLOOD UREA 25 mg/dL 7-21 H NITROGEN (BEAKER) (test code = 354) CREATININE 0.59 mg/dL 0.57-1.25 (BEAKER) (test code = 358) GLUCOSE RANDOM 110 mg/dL 70-105 H (BEAKER) (test code = 652) CALCIUM (BEAKER) 8.4 mg/dL 8.4-10.2 (test code = 697) EGFR (BEAKER) 126 Interpretatio n of eGFR (test code = mL/min/1.73 values Stage De scription 1092) sq m Result G1 Tyra l or high >=90 G2 Mildly decreased 60-89 G3a Mildl y to moderately 45-5 9 G3b Moderately to s everely 30-44 G4 Severl y decreased 15-29 G5 Kidney failure <15Reported eGF R is based on the CKD-EPI 2020 equation that d oes not use a race coefficientEsti mated GFR is not as accur ate as Creatinine Papi patten in predicting glom erular filtration rate . Estimated GFR is not appl icable for dialysis patien ts Roll Icer ID - PIAYA LCBC W/PLT COUNT & AUTO [id number] 03:51:21 Test Item Value Reference Range Interpretation Comments WHITE BLOOD CELL COUNT (BEAKER) 11.9 K/ L 3.5-10.5 H (test code = 775) RED BLOOD CELL COUNT (BEAKER) 3.18 M/ L 4.63-6.08 L (test code = 761) HEMOGLOBIN (BEAKER) (test code = 9.3 GM/DL 13.7-17.5 L 410) HEMATOCRIT (BEAKER) (test code = 29.2 % 40.1-51.0 L 411) MEAN CORPUSCULAR VOLUME (BEAKER) 92 fL 79-92 (test code = 753) MEAN CORPUSCULAR HEMOGLOBIN 29.2 pg 25.7-32.2 (BEAKER) (test code = 751) MEAN CORPUSCULAR HEMOGLOBIN CONC 31.8 GM/DL 32.3-36.5 L (BEAKER) (test code = 752) RED CELL DISTRIBUTION WIDTH 15.3 % 11.6-14.4 H (BEAKER) (test code = 412) PLATELET COUNT (BEAKER) (test 295 K/CU MM 150-450 code = 756) MEAN PLATELET VOLUME (BEAKER) 10.1 fL 9.4-12.4 (test code = 754) NUCLEATED RED BLOOD CELLS 0 /100 WBC 0-0 (BEAKER) (test code = 413) NEUTROPHILS RELATIVE PERCENT 69 % (BEAKER) (test code = 429) LYMPHOCYTES RELATIVE PERCENT 19 % (BEAKER) (test code = 430) MONOCYTES RELATIVE PERCENT 7 % (BEAKER) (test code = 431) EOSINOPHILS RELATIVE PERCENT 0 % (BEAKER) (test code = 432) BASOPHILS RELATIVE PERCENT 0 % (BEAKER) (test code = 437) NEUTROPHILS ABSOLUTE COUNT 8.13 K/ L 1.78-5.38 H (BEAKER) (test code = 670) LYMPHOCYTES ABSOLUTE COUNT 2.19 K/ L 1.32-3.57 (BEAKER) (test code = 414) MONOCYTES ABSOLUTE COUNT (BEAKER) 0.88 K/ L 0.30-0.82 H (test code = 415) EOSINOPHILS ABSOLUTE COUNT 0.05 K/ L 0.04-0.54 (BEAKER) (test code = 416) BASOPHILS ABSOLUTE COUNT (BEAKER) 0.03 K/ L 0.01-0.08 (test code = 417) IMMATURE GRANULOCYTES-RELATIVE 4.80 % 0.00-1.00 H PERCENT (BEAKER) (test code = 2801) POCT-GLUCOSE [id number] 00:11:28 Test Item Value Reference Range Interpretation Comments POC-GLUCOSE METER 131 mg/dL 70-110 H : TESTED A T [facility] 6720 (BEAKER) ([facility] = 1538) [address]: Roll Icer/Techni carroll ID = [id number] for SUGU , SHEENAMOL [id number] 18:08:19 Test Item Value Reference Range Interpretation Comments MAGNESIUM (BEAKER) (test code = 1.9 mg/dL 1.6-2.6 627) Roll Icer ID - BSBASIC METABOLIC [id number] 18:08:18 Test Item Value Reference Range Interpretation Comments SODIUM (BEAKER) 147 meq/L 136-145 H (test code = 381) POTASSIUM 3.6 meq/L 3.5-5.1 (BEAKER) (test code = 379) CHLORIDE (BEAKER) 106 meq/L 98-107 (test code = 382) CO2 (BEAKER) 33 meq/L 22-29 H (test code = 355) BLOOD UREA 24 mg/dL 7-21 H NITROGEN (BEAKER) (test code = 354) CREATININE 0.58 mg/dL 0.57-1.25 (BEAKER) (test code = 358) GLUCOSE RANDOM 115 mg/dL 70-105 H (BEAKER) (test code = 652) CALCIUM (BEAKER) 8.5 mg/dL 8.4-10.2 (test code = 697) EGFR (BEAKER) 127 Interpretati on of eGFR (test code = mL/min/1.73 values Stage De scription 1092) sq m Result G1 Tyra l or high >=90 G2 Mildly decreased 60-89 G3a Mildl y to moderately 45-5 9 G3b Moderately to s everely 30-44 G4 Severl y decreased 15-29 G5 Kidney failure <15Reported eGF R is based on the CKD-EPI 2020 equation that d oes not use a race coefficientEsti mated GFR is not as accur ate as Creatinine Papi sandor in predicting glom erular filtration rate . Estimated GFR is not appl icable for dialysis patien ts Roll Icer ID - BSPOCT-GLUCOSE [id number] 18:01:36 Test Item Value Reference Range Interpretation Comments POC-GLUCOSE METER 110 mg/dL 70-110 : TESTED A T [facility] 6720 (BEAKER) (test code = [place], 1538) [address]: Roll Icer/Techni carroll ID = [id number] for Sa olivo (contract), Seema mobley BLOOD GAS, [id number] 17:26:51 Test Item Value Reference Range Interpretation Comments PH ARTERIAL (BEAKER) (test code = 7.50 7.35-7.45 H 383) PCO2 ARTERIAL (BEAKER) (test code 47 mm Hg 35-45 H = 384) PO2 ARTERIAL (BEAKER) (test code 125 mm Hg 80-90 H = 385) O2 SATURATION ARTERIAL (BEAKER) 98.6 % 96.0-97.0 H (test code = 386) HCO3 ARTERIAL (BEAKER) (test code 35 mmol/L 21-29 H = 388) BASE EXCESS ARTERIAL (BEAKER) 10.8 mmol/L -2.0-3.0 H (test code = 387) PATIENT TEMPERATURE (BEAKER) 38.0 (test code = 1818) FIO2 (BEAKER) (test code = 1819) 50.0 BLOOD GAS, [id number] 12:23:04 Test Item Value Reference Range Interpretation Comments PH ARTERIAL (BEAKER) (test code = 7.51 7.35-7.45 H 383) PCO2 ARTERIAL (BEAKER) (test code 45 mm Hg 35-45 = 384) PO2 ARTERIAL (BEAKER) (test code 152 mm Hg 80-90 H = 385) O2 SATURATION ARTERIAL (BEAKER) 99.1 % 96.0-97.0 H (test code = 386) HCO3 ARTERIAL (BEAKER) (test code 35 mmol/L 21-29 H = 388) BASE EXCESS ARTERIAL (BEAKER) 11.0 mmol/L -2.0-3.0 H (test code = 387) PATIENT TEMPERATURE (BEAKER) 37.5 (test code = 1818) FIO2 (BEAKER) (test code = 1819) 50.0 POCT-GLUCOSE [id number] 11:17:14 Test Item Value Reference Range Interpretation Comments POC-GLUCOSE METER 129 mg/dL 70-110 H : TESTED A T [facility] 6720 (BEAKER) (test code = [place], 1538) [address]: Roll Icer/Techni carroll ID = [id number] for IB RAHIM, SERKALEM RAD, CHEST, 1 VIEW, NON [id number] 08:41:00Reason for exam:->intuabted, pneumothorax ,s/p CTShould this be performed at the bedside?->Yes [facility] : 1985 Sex: MFINAL REPORT Chest AP portable COMPARISON STUDY: 03/14/2022 History provided: Follow-up intubated patient ET tube in good position with tip at the level of the clavicles. Feeding tube and right chest tube remain in place. No pneumothorax. Heart size normal. Dense airspace disease persists bilaterally without change. Signed: Bobby Alston Verified Date/Time: 03/15/2022 08:41:40Reading Location: [facility] Diagnostic Imaging [place] Room [place] [address] POCT- GLUCOSE [id number] 06:10:43 Test Item Value Reference Range Interpretation Comments POC-GLUCOSE METER 125 mg/dL 70-110 H : TESTED A T [facility] 6720 (BEAKER) (test code [facility], = 1538) [address]: Roll Icer/Techni carroll ID = [id number] for KALPESHBandar MILAGROTERESA BASIC METABOLIC [id number] 03:30:16 Test Item Value Reference Range Interpretation Comments SODIUM (BEAKER) 143 meq/L 136-145 (test code = 381) POTASSIUM 3.9 meq/L 3.5-5.1 (BEAKER) (test code = 379) CHLORIDE (BEAKER) 105 meq/L 98-107 (test code = 382) CO2 (BEAKER) 30 meq/L 22-29 H (test code = 355) BLOOD UREA 22 mg/dL 7-21 H NITROGEN (BEAKER) (test code = 354) CREATININE 0.61 mg/dL 0.57-1.25 (BEAKER) (test code = 358) GLUCOSE RANDOM 140 mg/dL 70-105 H (BEAKER) (test code = 652) CALCIUM (BEAKER) 8.5 mg/dL 8.4-10.2 (test code = 697) EGFR (BEAKER) 125 Interpretatio n of eGFR (test code = mL/min/1.73 values Stage D escription 1092) sq m Result G1 Tyra l or high >=90 G2 Mildly decreased 60-89 G3a Mildl y to moderately 45-5 9 G3b Moderately to s everely 30-44 G4 Severl y decreased 15-29 G5 Kidney failure <15Reported eGF R is based on the CKD-EPI 2020 equation that d oes not use a race coefficientEsti mated GFR is not as accur ate as Creatinine Papi sandor in predicting glom erular filtration rate . Estimated GFR is not appl icable for dialysis patien ts Roll Icer ID - NELLY [id number] 03:30:16 Test Item Value Reference Range Interpretation Comments MAGNESIUM (BEAKER) (test code = 2.2 mg/dL 1.6-2.6 627) Roll Icer ID - NELLY [id number] 03:30:16 Test Item Value Reference Range Interpretation Comments PHOSPHORUS (BEAKER) (test code = 3.6 mg/dL 2.3-4.7 604) Roll Icer ID - NELLY MCALCIUM, [id number] 02:57:08 Test Item Value Reference Range Interpretation Comments CALCIUM IONIZED (BEAKER) (test 1.05 mmol/L 1.12-1.27 L code = 698) PH, BLOOD (BEAKER) (test code = 7.49 1810) BLOOD GAS, [id number] 02:57:08 Test Item Value Reference Range Interpretation Comments PH ARTERIAL (BEAKER) (test code = 7.48 7.35-7.45 H 383) PCO2 ARTERIAL (BEAKER) (test code 46 mm Hg 35-45 H = 384) PO2 ARTERIAL (BEAKER) (test code = 142 mm Hg 80-90 H 385) O2 SATURATION ARTERIAL (BEAKER) 98.9 % 96.0-97.0 H (test code = 386) HCO3 ARTERIAL (BEAKER) (test code 33 mmol/L 21-29 H = 388) BASE EXCESS ARTERIAL (BEAKER) 9.0 mmol/L -2.0-3.0 H (test code = 387) PATIENT TEMPERATURE (BEAKER) (test 37.9 code = 1818) FIO2 (BEAKER) (test code = 1819) 60.0 CBC W/PLT COUNT & AUTO [id number] 02:56:06 Test Item Value Reference Range Interpretation Comments WHITE BLOOD CELL COUNT 11.5 K/ L 3.5-10.5 H (BEAKER) (test code = 775) RED BLOOD CELL COUNT 3.18 M/ L 4.63-6.08 L (BEAKER) (test code = 761) HEMOGLOBIN (BEAKER) 9.3 GM/DL 13.7-17.5 L (test code = 410) HEMATOCRIT (BEAKER) 29.2 % 40.1-51.0 L (test code = 411) MEAN CORPUSCULAR 92 fL 79-92 VOLUME (BEAKER) (test code = 753) MEAN CORPUSCULAR 29.2 pg 25.7-32.2 HEMOGLOBIN (BEAKER) (test code = 751) MEAN CORPUSCULAR 31.8 GM/DL 32.3-36.5 L HEMOGLOBIN CONC (BEAKER) (test code = 752) RED CELL DISTRIBUTION 15.0 % 11.6-14.4 H WIDTH (BEAKER) (test code = 412) PLATELET COUNT 202 K/CU MM 150-450 Discordant re sult (BEAKER) (test code = compar ed to previous 756) result. Clinica l correlation req uired MEAN PLATELET VOLUME 10.3 fL 9.4-12.4 (BEAKER) (test code = 754) NUCLEATED RED BLOOD 0 /100 WBC 0-0 CELLS (BEAKER) (test code = 413) NEUTROPHILS RELATIVE 79 % PERCENT (BEAKER) (test code = 429) LYMPHOCYTES RELATIVE 10 % PERCENT (BEAKER) (test code = 430) MONOCYTES RELATIVE 6 % PERCENT (BEAKER) (test code = 431) EOSINOPHILS RELATIVE 0 % PERCENT (BEAKER) (test code = 432) BASOPHILS RELATIVE 1 % PERCENT (BEAKER) (test code = 437) NEUTROPHILS ABSOLUTE 9.12 K/ L 1.78-5.38 H COUNT (BEAKER) (test code = 670) LYMPHOCYTES ABSOLUTE 1.15 K/ L 1.32-3.57 L COUNT (BEAKER) (test code = 414) MONOCYTES ABSOLUTE 0.69 K/ L 0.30-0.82 COUNT (BEAKER) (test code = 415) EOSINOPHILS ABSOLUTE 0.02 K/ L 0.04-0.54 L COUNT (BEAKER) (test code = 416) BASOPHILS ABSOLUTE 0.06 K/ L 0.01-0.08 COUNT (BEAKER) (test code = 417) IMMATURE 4.10 % 0.00-1.00 H GRANULOCYTES-RELATIVE PERCENT (BEAKER) (test code = 2801) POCT-GLUCOSE [id number] 01:03:49 Test Item Value Reference Range Interpretation Comments POC-GLUCOSE METER 150 mg/dL 70-110 H : TESTED A T [facility] 6720 (BEAKER) (test code = [place], 1538) [address]: Roll Icer/Techni carroll ID = [id number] for Dulce Maria Pimentel [id number] 21:28:58 Test Item Value Reference Range Interpretation Comments MAGNESIUM (BEAKER) (test code = 1.8 mg/dL 1.6-2.6 627) Roll Icer ID - BSBASIC METABOLIC [id number] 21:28:57 Test Item Value Reference Range Interpretation Comments SODIUM (BEAKER) 146 meq/L 136-145 H (test code = 381) POTASSIUM 3.7 meq/L 3.5-5.1 (BEAKER) (test code = 379) CHLORIDE (BEAKER) 108 meq/L 98-107 H (test code = 382) CO2 (BEAKER) 30 meq/L 22-29 H (test code = 355) BLOOD UREA 22 mg/dL 7-21 H NITROGEN (BEAKER) (test code = 354) CREATININE 0.60 mg/dL 0.57-1.25 (BEAKER) (test code = 358) GLUCOSE RANDOM 125 mg/dL 70-105 H (BEAKER) (test code = 652) CALCIUM (BEAKER) 8.5 mg/dL 8.4-10.2 (test code = 697) EGFR (BEAKER) 126 Interpretatio n of eGFR (test code = mL/min/1.73 values Stage De scription 1092) sq m Result G1 Norm al or high >=90 G2 Mildly decreased 60-89 G3a Mildl y to moderately 45-5 9 G3b Moderately to s everely 30-44 G4 Severl y decreased 15-29 G5 Kidney failure <15Reported eGF R is based on the CKD-EPI 202 equation that d oes not use a race coefficientEsti mated GFR is not as accur ate as Creatinine Papi patten in predicting glom erular filtration rate . Estimated GFR is not appl icable for dialysis patiolga ts Roll Icer ID - BSPOCT-GLUCOSE [id number] 17:14:19 Test Item Value Reference Range Interpretation Comments POC-GLUCOSE METER 114 mg/dL 70-110 H : TESTED A T [facility] 6720 (BEAKER) (test code = [facility], 1538) [address]: Roll Icer/Techni carroll ID = [id number] for Iwona Wolf BLOOD GAS, [id number] 17:14:02 Test Item Value Reference Range Interpretation Comments PH ARTERIAL (BEAKER) (test code = 7.49 7.35-7.45 H 383) PCO2 ARTERIAL (BEAKER) (test code 44 mm Hg 35-45 = 384) PO2 ARTERIAL (BEAKER) (test code = 170 mm Hg 80-90 H 385) O2 SATURATION ARTERIAL (BEAKER) 99.2 % 96.0-97.0 H (test code = 386) HCO3 ARTERIAL (BEAKER) (test code 33 mmol/L 21-29 H = 388) BASE EXCESS ARTERIAL (BEAKER) 8.8 mmol/L -2.0-3.0 H (test code = 387) PATIENT TEMPERATURE (BEAKER) (test 38.0 code = 1818) FIO2 (BEAKER) (test code = 1819) 70.0 BRONCHIAL CULTURE + GRAM [id number] 16:27:15 Test Item Value Reference Range Interpretation Comments CULTURE (BEAKER) (test code See comment = 1095) GRAM STAIN RESULT (BEAKER) 2+ WBCs (test code = 1123) GRAM STAIN RESULT (BEAKER) No organisms seen (test code = 017415) 2+ YeastPOCT-GLUCOSE [id number] 12:11:45 Test Item Value Reference Range Interpretation Comments POC-GLUCOSE METER 138 mg/dL 70-110 H : TESTED A T [facility] 6720 (BEAKER) (test code = [facility], 1538) [address]: Roll Icer/Techni carroll ID = [id number] for Pa Russ mohanen BLOOD GAS, [id number] 10:24:20 Test Item Value Reference Range Interpretation Comments PH ARTERIAL (BEAKER) (test code = 7.46 7.35-7.45 H 383) PCO2 ARTERIAL (BEAKER) (test code 43 mm Hg 35-45 = 384) PO2 ARTERIAL (BEAKER) (test code = 144 mm Hg 80-90 H 385) O2 SATURATION ARTERIAL (BEAKER) 98.9 % 96.0-97.0 H (test code = 386) HCO3 ARTERIAL (BEAKER) (test code 30 mmol/L 21-29 H = 388) BASE EXCESS ARTERIAL (BEAKER) 5.5 mmol/L -2.0-3.0 H (test code = 387) PATIENT TEMPERATURE (BEAKER) (test 37.0 code = 1818) FIO2 (BEAKER) (test code = 1819) 80.0 RAD, CHEST, 1 VIEW, NON [id number] 09:01:00Reason for exam:->intuabted, pneumothorax ,s/p CTShould this be performed at the bedside?->Yes [facility] 1985 Sex: MFINAL REPORT CLINICAL HISTORY: intubated, pneumothorax ,s/p CT TECHNIQUE: 1 view ofthe chest. COMPARISON: 03/13/2022 IMPRESSION: The supporting lines and tubes are similar appearing. Diffuse bilateral pleural-parenchymal opacities are grossly unchanged. The cardiomediastinal silhouette is magnified by technique. Signed: Collette Weldon MDReport Verified Date/Time: 03/14/2022 09:01:41 Reading Location: [address] Reading Room BLOOD GAS, ARTERIAL 2022-03-14 07:50:12 Test Item Value Reference Range Interpretation Comments PH ARTERIAL (BEAKER) (test code = 7.50 7.35-7.45 H 383) PCO2 ARTERIAL (BEAKER) (test code 35 mm Hg 35-45 = 384) PO2 ARTERIAL (BEAKER) (test code = 99 mm Hg 80-90 H 385) O2 SATURATION ARTERIAL (BEAKER) 98.1 % 96.0-97.0 H (test code = 386) HCO3 ARTERIAL (BEAKER) (test code 27 mmol/L 21-29 = 388) BASE EXCESS ARTERIAL (BEAKER) 3.9 mmol/L -2.0-3.0 H (test code = 387) PATIENT TEMPERATURE (BEAKER) (test 36.5 code = 1818) FIO2 (BEAKER) (test code = 1819) 100.0 POCT-GLUCOSE [id number] 06:48:23 Test Item Value Reference Range Interpretation Comments POC-GLUCOSE METER 119 mg/dL 70-110 H : TESTED A T [facility] 6720 (BEAKER) (test code [facility], = 1538) [address]: Roll Icer/Techni carroll ID = [id number] for SUGU , SHEENAMOL [id number] 02:08:01 Test Item Value Reference Range Interpretation Comments MAGNESIUM (BEAKER) (test code = 1.9 mg/dL 1.6-2.6 627) Roll Icer ID - [id number] 02:08:01 Test Item Value Reference Range Interpretation Comments PHOSPHORUS (BEAKER) (test code = 2.8 mg/dL 2.3-4.7 604) Roll Icer ID - BSBASIC METABOLIC [id number] 02:08:00 Test Item Value Reference Range Interpretation Comments SODIUM (BEAKER) 145 meq/L 136-145 (test code = 381) POTASSIUM 3.5 meq/L 3.5-5.1 (BEAKER) (test code = 379) CHLORIDE (BEAKER) 111 meq/L 98-107 H (test code = 382) CO2 (BEAKER) 28 meq/L 22-29 (test code = 355) BLOOD UREA 21 mg/dL 7-21 NITROGEN (BEAKER) (test code = 354) CREATININE 0.58 mg/dL 0.57-1.25 (BEAKER) (test code = 358) GLUCOSE RANDOM 120 mg/dL 70-105 H (BEAKER) (test code = 652) CALCIUM (BEAKER) 8.5 mg/dL 8.4-10.2 (test code = 697) EGFR (BEAKER) 127 Interpretatio n of eGFR (test code = mL/min/1.73 values Stage De scription 1092) sq m Result G1 Tyra l or high >=90 G2 Mildly decreased 60-89 G3a Mild ly to moderately 45-5 9 G3b Moderately to s everely 30-44 G4 Severl y decreased 15-29 G5 Kidney failure <15Reported eGF R is based on the CKD-EPI 2020 equation that d oes not use a race coefficientEsti mated GFR is not as accur ate as Creatinine Papi sandor in predicting glom erular filtration rate . Estimated GFR is not appl icable for dialysis patien ts Roll Icer ID - BSBLOOD GAS, [id number] 01:45:36 Test Item Value Reference Range Interpretation Comments PH ARTERIAL (BEAKER) (test code = 7.48 7.35-7.45 H 383) PCO2 ARTERIAL (BEAKER) (test code 39 mm Hg 35-45 = 384) PO2 ARTERIAL (BEAKER) (test code = 113 mm Hg 80-90 H 385) O2 SATURATION ARTERIAL (BEAKER) 98.4 % 96.0-97.0 H (test code = 386) HCO3 ARTERIAL (BEAKER) (test code 29 mmol/L 21-29 = 388) BASE EXCESS ARTERIAL (BEAKER) 4.7 mmol/L -2.0-3.0 H (test code = 387) PATIENT TEMPERATURE (BEAKER) (test 37.0 code = 1818) FIO2 (BEAKER) (test code = 1819) 60.0 CALCIUM, [id number] 01:45:36 Test Item Value Reference Range Interpretation Comments CALCIUM IONIZED (BEAKER) (test 1.10 mmol/L 1.12-1.27 L code = 698) PH, BLOOD (BEAKER) (test code = 7.48 1810) CBC W/PLT COUNT & AUTO [id number] 01:44:37 Test Item Value Reference Range Interpretation Comments WHITE BLOOD CELL COUNT (BEAKER) 10.8 K/ L 3.5-10.5 H (test code = 775) RED BLOOD CELL COUNT (BEAKER) 3.24 M/ L 4.63-6.08 L (test code = 761) HEMOGLOBIN (BEAKER) (test code = 9.6 GM/DL 13.7-17.5 L 410) HEMATOCRIT (BEAKER) (test code = 29.2 % 40.1-51.0 L 411) MEAN CORPUSCULAR VOLUME (BEAKER) 90 fL 79-92 (test code = 753) MEAN CORPUSCULAR HEMOGLOBIN 29.6 pg 25.7-32.2 (BEAKER) (test code = 751) MEAN CORPUSCULAR HEMOGLOBIN CONC 32.9 GM/DL 32.3-36.5 (BEAKER) (test code = 752) RED CELL DISTRIBUTION WIDTH 15.1 % 11.6-14.4 H (BEAKER) (test code = 412) PLATELET COUNT (BEAKER) (test 132 K/CU MM 150-450 L code = 756) MEAN PLATELET VOLUME (BEAKER) 10.2 fL 9.4-12.4 (test code = 754) NUCLEATED RED BLOOD CELLS 0 /100 WBC 0-0 (BEAKER) (test code = 413) NEUTROPHILS RELATIVE PERCENT 72 % (BEAKER) (test code = 429) LYMPHOCYTES RELATIVE PERCENT 14 % (BEAKER) (test code = 430) MONOCYTES RELATIVE PERCENT 9 % (BEAKER) (test code = 431) EOSINOPHILS RELATIVE PERCENT 0 % (BEAKER) (test code = 432) BASOPHILS RELATIVE PERCENT 0 % (BEAKER) (test code = 437) NEUTROPHILS ABSOLUTE COUNT 7.80 K/ L 1.78-5.38 H (BEAKER) (test code = 670) LYMPHOCYTES ABSOLUTE COUNT 1.51 K/ L 1.32-3.57 (BEAKER) (test code = 414) MONOCYTES ABSOLUTE COUNT (BEAKER) 1.00 K/ L 0.30-0.82 H (test code = 415) EOSINOPHILS ABSOLUTE COUNT 0.02 K/ L 0.04-0.54 L (BEAKER) (test code = 416) BASOPHILS ABSOLUTE COUNT (BEAKER) 0.04 K/ L 0.01-0.08 (test code = 417) IMMATURE GRANULOCYTES-RELATIVE 4.20 % 0.00-1.00 H PERCENT (BEAKER) (test code = 5820) POCT-GLUCOSE [id number] 23:49:46 Test Item Value Reference Range Interpretation Comments POC-GLUCOSE METER 141 mg/dL 70-110 H : TESTED A T [facility] 6720 (BEAKER) (test code [facility], = 1538) [address]: Roll Icer/Techni carroll ID = [id number] for YOVANY WESTFALL BLOOD [id number] 23:00:51 Test Item Value Reference Range Interpretation Comments CULTURE (BEAKER) (test No growth in 5 days code = 1095) The specimen volume collected for this blood culture was below the optimum (10 mL per bottle or 20 mL total). Use of lower volumes may adversely affect recovery and/or detection times of some organisms.BLOOD [id number] 23:00:51 Test Item Value Reference Range Interpretation Comments CULTURE (BEAKER) (test No growth in 5 days code = 1095) The specimen volume collected for this blood culture was below the optimum (10 mL per bottle or 20 mL total). Use of lower volumes may adversely affect recovery and/or detection times of some organisms.POCT-GLUCOSE [id number] 17:59:51 Test Item Value Reference Range Interpretation Comments POC-GLUCOSE METER 119 mg/dL 70-110 H : TESTED A T [facility] 6720 (BEAKER) (test code = [facility] Isa [facility], 1538) [address]: Roll Icer/Techni carroll ID = [id number] for Sam mohan Iwona BLOOD GAS, [id number] 12:14:19 Test Item Value Reference Range Interpretation Comments PH ARTERIAL (BEAKER) (test code = 7.51 7.35-7.45 H 383) PCO2 ARTERIAL (BEAKER) (test code 35 mm Hg 35-45 = 384) PO2 ARTERIAL (BEAKER) (test code = 158 mm Hg 80-90 H 385) O2 SATURATION ARTERIAL (BEAKER) 99.2 % 96.0-97.0 H (test code = 386) HCO3 ARTERIAL (BEAKER) (test code 27 mmol/L 21-29 = 388) BASE EXCESS ARTERIAL (BEAKER) 3.9 mmol/L -2.0-3.0 H (test code = 387) PATIENT TEMPERATURE (BEAKER) (test 37.0 code = 1818) FIO2 (BEAKER) (test code = 1819) 50.0 POCT-GLUCOSE [id number] 11:59:27 Test Item Value Reference Range Interpretation Comments POC-GLUCOSE METER 115 mg/dL 70-110 H : [facility] (test code = [place], 1538) [address]: Roll Icer/Techni carroll ID = [id number] for Iwona Wolf RAD, CHEST, 1 VIEW, NON [id number] 09:38:00Reason for exam:->intuabted, pneumothorax ,s/p CTShould this be performed at the bedside?->Yes [facility] : 1985 Sex: MFINAL REPORT CLINICAL HISTORY: intuabted, pneumothorax ,s/p CT TECHNIQUE: 1 view ofthe chest. COMPARISON: 03/12/2022 IMPRESSION: The supporting lines and tubes are similar appearing. Bilateral pleural-parenchymal opacities unchanged. The cardiomediastinal silhouette is magnified by technique. No pneumothorax. Signed: Collette Weldon Verified Date/Time: 03/13/2022 09:38:31 Reading Location: [address] Reading Room POCT-GLUCOSE METER 2022-03-13 06:15:35 Test Item Value Reference Range Interpretation Comments POC-GLUCOSE METER 112 mg/dL 70-110 H : TESTED A T [facility] 6720 (DORIS) (test code = [place] [facility], 1538) [address]: Roll Icer/Techni carroll ID = [id number] for Tia Alcantar LACTIC ACID, [id number] 03:49:54 Test Item Value Reference Range Interpretation Comments LACTATE BLOOD ARTERIAL (2) 1.6 mmol/L 0.5-2.2 (BEAKER) (test code = 2874) Roll Icer ID - [id number] 02:48:26 Test Item Value Reference Range Interpretation Comments PHOSPHORUS (BEAKER) (test code = 2.7 mg/dL 2.3-4.7 604) Roll Icer ID - MARCOBASIC METABOLIC [id number] 02:48:25 Test Item Value Reference Range Interpretation Comments SODIUM (BEAKER) 145 meq/L 136-145 (test code = 381) POTASSIUM 3.7 meq/L 3.5-5.1 (BEAKER) (test code = 379) CHLORIDE (BEAKER) 111 meq/L 98-107 H (test code = 382) CO2 (BEAKER) 27 meq/L 22-29 (test code = 355) BLOOD UREA 21 mg/dL 7-21 NITROGEN (BEAKER) (test code = 354) CREATININE 0.61 mg/dL 0.57-1.25 (BEAKER) (test code = 358) GLUCOSE RANDOM 127 mg/dL 70-105 H (BEAKER) (test code = 652) CALCIUM (BEAKER) 8.4 mg/dL 8.4-10.2 (test code = 697) EGFR (BEAKER) 125 Interpretatio n of eGFR (test code = mL/min/1.73 values Stage De scription 1092) sq m Result G1 Tyra l or high >=90 G2 Mildly decreased 60-89 G3a Mildl y to moderately 45-5 9 G3b Moderately to s everely 30-44 G4 Severl y decreased 15-29 G5 Kidney failure <15Reported eGF R is based on the CKD-EPI 2021 equation that d oes not use a race coefficientEsti mated GFR is not as accur ate as Creatinine Papi patten in predicting glom erular filtration rate . Estimated GFR is not appl icable for dialysis patien ts Roll Icer ID - [id number] 02:48:25 Test Item Value Reference Range Interpretation Comments MAGNESIUM (BEAKER) (test code = 1.9 mg/dL 1.6-2.6 627) Roll Icer ID - MARCOCBC W/PLT COUNT & AUTO [id number] 02:36:11 Test Item Value Reference Range Interpretation Comments WHITE BLOOD CELL COUNT (BEAKER) 9.2 K/ L 3.5-10.5 (test code = 775) RED BLOOD CELL COUNT (BEAKER) 3.12 M/ L 4.63-6.08 L (test code = 761) HEMOGLOBIN (BEAKER) (test code = 9.3 GM/DL 13.7-17.5 L 410) HEMATOCRIT (BEAKER) (test code = 27.8 % 40.1-51.0 L 411) MEAN CORPUSCULAR VOLUME (BEAKER) 89 fL 79-92 (test code = 753) MEAN CORPUSCULAR HEMOGLOBIN 29.8 pg 25.7-32.2 (BEAKER) (test code = 751) MEAN CORPUSCULAR HEMOGLOBIN CONC 33.5 GM/DL 32.3-36.5 (BEAKER) (test code = 752) RED CELL DISTRIBUTION WIDTH 15.1 % 11.6-14.4 H (BEAKER) (test code = 412) PLATELET COUNT (BEAKER) (test 130 K/CU MM 150-450 L code = 756) MEAN PLATELET VOLUME (BEAKER) 10.3 fL 9.4-12.4 (test code = 754) NUCLEATED RED BLOOD CELLS 0 /100 WBC 0-0 (BEAKER) (test code = 413) NEUTROPHILS RELATIVE PERCENT 79 % (BEAKER) (test code = 429) LYMPHOCYTES RELATIVE PERCENT 9 % (BEAKER) (test code = 430) MONOCYTES RELATIVE PERCENT 9 % (BEAKER) (test code = 431) EOSINOPHILS RELATIVE PERCENT 0 % (BEAKER) (test code = 432) BASOPHILS RELATIVE PERCENT 0 % (BEAKER) (test code = 437) NEUTROPHILS ABSOLUTE COUNT 7.32 K/ L 1.78-5.38 H (BEAKER) (test code = 670) LYMPHOCYTES ABSOLUTE COUNT 0.86 K/ L 1.32-3.57 L (BEAKER) (test code = 414) MONOCYTES ABSOLUTE COUNT (BEAKER) 0.83 K/ L 0.30-0.82 H (test code = 415) EOSINOPHILS ABSOLUTE COUNT 0.01 K/ L 0.04-0.54 L (BEAKER) (test code = 416) BASOPHILS ABSOLUTE COUNT (BEAKER) 0.04 K/ L 0.01-0.08 (test code = 417) IMMATURE GRANULOCYTES-RELATIVE 1.90 % 0.00-1.00 H PERCENT (BEAKER) (test code = 2801) BLOOD GAS, [id number] 02:27:41 Test Item Value Reference Range Interpretation Comments PH ARTERIAL (BEAKER) (test code = 7.51 7.35-7.45 H 383) PCO2 ARTERIAL (BEAKER) (test code 37 mm Hg 35-45 = 384) PO2 ARTERIAL (BEAKER) (test code = 193 mm Hg 80-90 H 385) O2 SATURATION ARTERIAL (BEAKER) 99.4 % 96.0-97.0 H (test code = 386) HCO3 ARTERIAL (BEAKER) (test code 29 mmol/L 21-29 = 388) BASE EXCESS ARTERIAL (BEAKER) 5.2 mmol/L -2.0-3.0 H (test code = 387) PATIENT TEMPERATURE (BEAKER) (test 36.6 code = 1818) FIO2 (BEAKER) (test code = 1819) 55.0 CALCIUM, [id number] 02:24:43 Test Item Value Reference Range Interpretation Comments CALCIUM IONIZED (BEAKER) (test 1.12 mmol/L 1.12-1.27 code = 698) PH, BLOOD (BEAKER) (test code = 7.50 1810) POCT-GLUCOSE [id number] 23:50:24 Test Item Value Reference Range Interpretation Comments POC-GLUCOSE METER 125 mg/dL 70-110 H : TESTED A T [facility] 6720 (BEAKER) (test code = [facility], 153) [address]: Roll Icer/Techni carroll ID = [id number] for Tia Alcantar POCT-GLUCOSE [id number] 17:40:16 Test Item Value Reference Range Interpretation Comments POC-GLUCOSE METER 126 mg/dL 70-110 H : TESTED A T [facility] 6720 (BEAKER) (test code = [facility], 153) [address]: Roll Icer/Techni carroll ID = [id number] for Damián reynaldo (contract)Consuelo valeriead BLOOD GAS, [id number] 17:39:04 Test Item Value Reference Range Interpretation Comments PH ARTERIAL (BEAKER) (test code = 7.53 7.35-7.45 H 383) PCO2 ARTERIAL (BEAKER) (test code 36 mm Hg 35-45 = 384) PO2 ARTERIAL (BEAKER) (test code = 145 mm Hg 80-90 H 385) O2 SATURATION ARTERIAL (BEAKER) 99.1 % 96.0-97.0 H (test code = 386) HCO3 ARTERIAL (BEAKER) (test code 30 mmol/L 21-29 H = 388) BASE EXCESS ARTERIAL (BEAKER) 6.5 mmol/L -2.0-3.0 H (test code = 387) PATIENT TEMPERATURE (BEAKER) (test 37.0 code = 1818) RAD, CHEST, 1 VIEW, NON [id number] 14:07:00Reason for exam:->pneumothorax- post clamping CTShould this be performed at the bedside?->Yes[facility] : 1985 Sex: MFINAL REPORT CLINICAL HISTORY: pneumothorax- post clamping CT TECHNIQUE: 1 view of the chest. COMPARISON: 03/12/2022 IMPRESSION: The supporting lines and tubes are similar appearing. Diffuse bilateral airspace opacities and suspected small pleural effusions are grossly unchanged. The cardiomediastinal silhouette is magnified by technique. Signed: Collette Weldon MDReport Verified Date/Time: 03/12/2022 14:07:32 Reading Location: [address] Reading Room Electronically signedby: COLLETTE WELDON M.D. on 03/12/2022 02:07 PMCALCIUM, [id number] 13:54:48 Test Item Value Reference Range Interpretation Comments CALCIUM IONIZED (BEAKER) (test 1.05 mmol/L 1.12-1.27 L code = 698) PH, BLOOD (BEAKER) (test code = 7.49 1810) STREP PNEUMONIAE [id number] 13:15:41 Test Item Value Reference Range Interpretation Comments STREP PNEUMONIAE Presumptive negative Presumptive negative ANTIGEN (BEAKER) for pneumococcal for pneumococcal (test code = 1615) pneumonia - see pneumonia - see comment commen Presumptive negative for pneumococcal pneumonia, suggesting no current or recent pneumococcal infection. Infection due to S. pneumoniae cannot be ruled out since the antigen present in the sample may be below the detection limit of the test.Legionella antigen, [id number] 13:15:07 Test Item Value Reference Range Interpretation Comments Legionella Urine Negative - see Negative Negative for L. Antigen (test code = comment pneumop edwardo 82752-9) serogroup 1 antigen, sugges ting no recent or current infecti on with this serogroup. Legionellosis cannot be ruled out since other serogroups and species may cau se disease. Lab Interpretation Normal (test code = 52143-3) [facility], [id number] 13:15:07 Test Item Value Reference Range Interpretation Comments Legionella Urine Negative - see Negative Negative for L. Antigen (test code = comment pneumop edwardo 80806-9) serogroup 1 antigen, sugges ting no recent or current infecti on with this serogroup. Legionellosis cannot be ruled out since other serogroups and species may cau se disease. Lab Interpretation Normal (test code = 45668-4) [facility]LE[facility]ION[facility]LL[facility] ANTIGEN, [id number] 13:15:07 Test Item Value Reference Range Interpretation Comments L. PNEUMOPHILA Negative - see Negative Negative fo r L. SEROGP 1 UR AG comment pneumophila (BEAKER) (test code serogrou p 1 antigen, = 1156) suggesting no r ecent or current infe ction with this serog roup. Legionellosis c annot be ruled out si nce other serogroup s and species may cau se disease. [id number] 12:44:20 Test Item Value Reference Range Interpretation Comments MAGNESIUM (BEAKER) (test code = 2.2 mg/dL 1.6-2.6 627) Roll Icer ID - [id number] 12:44:20 Test Item Value Reference Range Interpretation Comments PHOSPHORUS (BEAKER) (test code = 2.9 mg/dL 2.3-4.7 604) Roll Icer ID - [id number] 12:44:20 Test Item Value Reference Range Interpretation Comments POTASSIUM (BEAKER) (test code = 3.8 meq/L 3.5-5.1 379) Roll Icer ID - ADMINBLOOD GAS, [id number] 11:49:06 Test Item Value Reference Range Interpretation Comments PH ARTERIAL (BEAKER) (test code = 7.48 7.35-7.45 H 383) PCO2 ARTERIAL (BEAKER) (test code 37 mm Hg 35-45 = 384) PO2 ARTERIAL (BEAKER) (test code = 140 mm Hg 80-90 H 385) O2 SATURATION ARTERIAL (BEAKER) 99.0 % 96.0-97.0 H (test code = 386) HCO3 ARTERIAL (BEAKER) (test code 27 mmol/L 21-29 = 388) BASE EXCESS ARTERIAL (BEAKER) 2.9 mmol/L -2.0-3.0 (test code = 387) PATIENT TEMPERATURE (BEAKER) (test 36.9 code = 1818) FIO2 (BEAKER) (test code = 1819) 80.0 POCT-GLUCOSE [id number] 11:22:18 Test Item Value Reference Range Interpretation Comments POC-GLUCOSE METER 113 mg/dL 70-110 H : TESTED A T [facility] 6720 (BEAKER) (test code = [place] [facility], 1538) [address]: Roll Icer/Techni carroll ID = [id number] for Damián jacobs (contract)Consuelo HEPATIC FUNCTION [id number] 08:12:22 Test Item Value Reference Range Interpretation Comments TOTAL PROTEIN (BEAKER) (test code = 5.4 gm/dL 6.0-8.3 L 770) ALBUMIN (BEAKER) (test code = 1145) 2.6 g/dL 3.5-5.0 L BILIRUBIN TOTAL (BEAKER) (test code 0.6 mg/dL 0.2-1.2 = 377) BILIRUBIN DIRECT (BEAKER) (test 0.3 mg/dL 0.1-0.5 code = 706) ALKALINE PHOSPHATASE (BEAKER) (test 143 U/L 40-150 code = 346) AST (SGOT) (BEAKER) (test code = 33 U/L 5-34 353) ALT (SGPT) (BEAKER) (test code = 72 U/L 6-55 H 347) Roll Icer ID - [id number] 06:57:19 Test Item Value Reference Range Interpretation Comments PHOSPHORUS (BEAKER) (test code = 1.5 mg/dL 2.3-4.7 LL 604) Roll Icer ID - ALECIA WPOCT-GLUCOSE [id number] 06:36:08 Test Item Value Reference Range Interpretation Comments POC-GLUCOSE METER 112 mg/dL 70-110 H : TESTED A T [facility] 6720 (BEAKER) (test code = GRADY [place], 1538) [address]: Roll Icer/Techni carroll ID = [id number] for AUSTIN SHULTZ BASIC METABOLIC [id number] 06:08:44 Test Item Value Reference Range Interpretation Comments SODIUM (BEAKER) 144 meq/L 136-145 (test code = 381) POTASSIUM 3.2 meq/L 3.5-5.1 L (BEAKER) (test code = 379) CHLORIDE (BEAKER) 111 meq/L 98-107 H (test code = 382) CO2 (BEAKER) 25 meq/L 22-29 (test code = 355) BLOOD UREA 21 mg/dL 7-21 NITROGEN (BEAKER) (test code = 354) CREATININE 0.61 mg/dL 0.57-1.25 (BEAKER) (test code = 358) GLUCOSE RANDOM 116 mg/dL 70-105 H (BEAKER) (test code = 652) CALCIUM (BEAKER) 8.6 mg/dL 8.4-10.2 (test code = 697) EGFR (BEAKER) 125 Interpretatio n of eGFR (test code = mL/min/1.73 values Stage De scription 1092) sq m Result G1 Tyra l or high >=90 G2 Mildly decreased 60-89 G3a Mildl y to moderately 45-5 9 G3b Moderately to s everely 30-44 G4 Severl y decreased 15-29 G5 Kidney failure <15Reported eGF R is based on the CKD-EPI 2020 equation that d oes not use a race coefficientEsti mated GFR is not as accur ate as Creatinine Papi sandor in predicting glom erular filtration rate . Estimated GFR is not appl icable for dialysis patien ts Roll Icer ID - ALECIA [id number] 06:08:44 Test Item Value Reference Range Interpretation Comments MAGNESIUM (BEAKER) (test code = 1.9 mg/dL 1.6-2.6 627) Roll Icer ID Aubrey ALSTON WCBC W/PLT COUNT & AUTO [id number] 05:41:35 Test Item Value Reference Range Interpretation Comments WHITE BLOOD CELL COUNT (BEAKER) 11.2 K/ L 3.5-10.5 H (test code = 775) RED BLOOD CELL COUNT (BEAKER) 3.47 M/ L 4.63-6.08 L (test code = 761) HEMOGLOBIN (BEAKER) (test code = 10.1 GM/DL 13.7-17.5 L 410) HEMATOCRIT (BEAKER) (test code = 30.1 % 40.1-51.0 L 411) MEAN CORPUSCULAR VOLUME (BEAKER) 87 fL 79-92 (test code = 753) MEAN CORPUSCULAR HEMOGLOBIN 29.1 pg 25.7-32.2 (BEAKER) (test code = 751) MEAN CORPUSCULAR HEMOGLOBIN CONC 33.6 GM/DL 32.3-36.5 (BEAKER) (test code = 752) RED CELL DISTRIBUTION WIDTH 15.0 % 11.6-14.4 H (BEAKER) (test code = 412) PLATELET COUNT (BEAKER) (test 133 K/CU MM 150-450 L code = 756) MEAN PLATELET VOLUME (BEAKER) 10.5 fL 9.4-12.4 (test code = 754) NUCLEATED RED BLOOD CELLS 0 /100 WBC 0-0 (BEAKER) (test code = 413) NEUTROPHILS RELATIVE PERCENT 85 % (BEAKER) (test code = 429) LYMPHOCYTES RELATIVE PERCENT 8 % (BEAKER) (test code = 430) MONOCYTES RELATIVE PERCENT 5 % (BEAKER) (test code = 431) EOSINOPHILS RELATIVE PERCENT 0 % (BEAKER) (test code = 432) BASOPHILS RELATIVE PERCENT 0 % (BEAKER) (test code = 437) NEUTROPHILS ABSOLUTE COUNT 9.45 K/ L 1.78-5.38 H (BEAKER) (test code = 670) LYMPHOCYTES ABSOLUTE COUNT 0.94 K/ L 1.32-3.57 L (BEAKER) (test code = 414) MONOCYTES ABSOLUTE COUNT (BEAKER) 0.60 K/ L 0.30-0.82 (test code = 415) EOSINOPHILS ABSOLUTE COUNT 0.00 K/ L 0.04-0.54 L (BEAKER) (test code = 416) BASOPHILS ABSOLUTE COUNT (BEAKER) 0.02 K/ L 0.01-0.08 (test code = 417) IMMATURE GRANULOCYTES-RELATIVE 1.50 % 0.00-1.00 H PERCENT (BEAKER) (test code = 2801) BLOOD GAS, [id number] 05:08:43 Test Item Value Reference Range Interpretation Comments PH ARTERIAL (BEAKER) (test code = 7.50 7.35-7.45 H 383) PCO2 ARTERIAL (BEAKER) (test code 35 mm Hg 35-45 = 384) PO2 ARTERIAL (BEAKER) (test code = 75 mm Hg 80-90 L 385) O2 SATURATION ARTERIAL (BEAKER) 96.4 % 96.0-97.0 (test code = 386) HCO3 ARTERIAL (BEAKER) (test code 27 mmol/L 21-29 = 388) BASE EXCESS ARTERIAL (BEAKER) 3.7 mmol/L -2.0-3.0 H (test code = 387) PATIENT TEMPERATURE (BEAKER) (test 36.7 code = 1818) FIO2 (BEAKER) (test code = 1819) 50.0 RAD, CHEST, 1 VIEW, NON [id number] 02:57:00Reason for exam:->ett and CT placementMI[facility]: [facility] : 1985 Sex: MFINAL REPORT RAD, CHEST, 1 VIEW, NON DEPT INDICATION: ett and CT placement COMPARISON: Prior day's exam FINDINGS: Portable frontal view of the chest. IMPRESSION: Support Lines: The endotracheal tube terminates 3.6 cm cephalad to the akbar. Enteric tube terminates in the gastric antrum versus the proximal duodenum. Stable right-sided chest tube. Lungs and pleura: Moderately decreasedleft greater than right airspace opacities. Unchanged small left pleural effusion. No pneumothorax. Heart and mediastinum: Stable contours. Additional findings: None. Signed: Velvet Vargas MDReport Verified Date/Time: 03/12/2022 02:57:07 POCT-GLUCOSE [id number] 01:43:42 Test Item Value Reference Range Interpretation Comments POC-GLUCOSE METER 118 mg/dL 70-110 H : TESTED A T [facility] 6720 (BEAKER) (test code = [facility], 1538) [address]: Roll Icer/Techni carroll ID = [id number] for Nato mejia Carola CBC W/PLT COUNT & AUTO [id number] 18:20:34 Test Item Value Reference Range Interpretation Comments WHITE BLOOD CELL COUNT (BEAKER) 9.8 K/ L 3.5-10.5 (test code = 775) RED BLOOD CELL COUNT (BEAKER) 3.51 M/ L 4.63-6.08 L (test code = 761) HEMOGLOBIN (BEAKER) (test code = 10.5 GM/DL 13.7-17.5 L 410) HEMATOCRIT (BEAKER) (test code = 31.4 % 40.1-51.0 L 411) MEAN CORPUSCULAR VOLUME (BEAKER) 90 fL 79-92 (test code = 753) MEAN CORPUSCULAR HEMOGLOBIN 29.9 pg 25.7-32.2 (BEAKER) (test code = 751) MEAN CORPUSCULAR HEMOGLOBIN CONC 33.4 GM/DL 32.3-36.5 (BEAKER) (test code = 752) RED CELL DISTRIBUTION WIDTH 14.7 % 11.6-14.4 H (BEAKER) (test code = 412) PLATELET COUNT (BEAKER) (test 133 K/CU MM 150-450 L code = 756) MEAN PLATELET VOLUME (BEAKER) 10.5 fL 9.4-12.4 (test code = 754) NEUTROPHILS RELATIVE PERCENT 84 % (BEAKER) (test code = 429) LYMPHOCYTES RELATIVE PERCENT 10 % (BEAKER) (test code = 430) MONOCYTES RELATIVE PERCENT 5 % (BEAKER) (test code = 431) EOSINOPHILS RELATIVE PERCENT 0 % (BEAKER) (test code = 432) BASOPHILS RELATIVE PERCENT 0 % (BEAKER) (test code = 437) NEUTROPHILS ABSOLUTE COUNT 8.22 K/ L 1.78-5.38 H (BEAKER) (test code = 670) LYMPHOCYTES ABSOLUTE COUNT 0.99 K/ L 1.32-3.57 L (BEAKER) (test code = 414) MONOCYTES ABSOLUTE COUNT (BEAKER) 0.48 K/ L 0.30-0.82 (test code = 415) EOSINOPHILS ABSOLUTE COUNT 0.00 K/ L 0.04-0.54 L (BEAKER) (test code = 416) BASOPHILS ABSOLUTE COUNT (BEAKER) 0.02 K/ L 0.01-0.08 (test code = 417) IMMATURE GRANULOCYTES-RELATIVE 0.40 % 0.00-1.00 PERCENT (BEAKER) (test code = 2801) MR, BRAIN, WITHOUT [id number] 17:45:00Unlisted Reason for Exam - Click Yes and Enter Reason Below->No [facility] : 1985 Sex: MFINAL REPORT MRI Brain without contrast CLINICAL HISTORY: Neuro deficit, acute, stroke suspected Technique: MRI of the brain utilizing axial T2, FLAIR, GRE, DWI; sagittal and coronal T1-weighted images. Comparisons: 11/23/2021 Findings: There is no evidence of acute infarct or hemorrhage. There is no hydrocephalus or midline shift.Bilateral basal ganglia T2 hyperintensities. No chronic microhemorrhage. Confluent white matter T2 hyperintensity is stable. Parenchymal volume loss with temporal lobe predominance. There are no abnormal extra-axial fluid collections. The craniocervical junction is preserved. The major intracranial flow-voids appear patent. Bilateral mastoid effusions and paranasal sinus fluid, likely related to intubation. IMPRESSION: Stable examination without acute infarct or acute intracranial hemorrhage. Bilateral basal ganglia T2 hyperintensity involving loss possibly sequela of toxic metabolic encephalopathy, including ethanol exposure for ischemia. Parenchymal v olume loss with cerebellar predominance. Signed: Alfredo La MDReport Verified Date/Time: 03/11/2022 17:45:47 POCT-GLUCOSE [id number] 17:35:44 Test Item Value Reference Range Interpretation Comments POC-GLUCOSE METER 107 mg/dL 70-110 : TESTED A T [facility] 6720 ([employer] (test code = [facility] [employer] [facility], 153) [address]: Roll Icer/Techni carroll ID = [id number] for To reynaldo (contract)[employer] 2D [id number] 14:13:46Ejection FractionSLEH ECHO [facility] [id number] 14:13:46Ejection FractionSLEH ECHO HEARTLAB [facility] [id number] 11:23:44 Test Item Value Reference Range Interpretation Comments POC-GLUCOSE METER 125 mg/dL 70-110 H : TESTED A T [facility] 6720 (BEAKER) (test code = [facility] [employer] [facility], 153) [address]: Roll Icer/Techni carroll ID = [id number] for To reynaldo (contract)Consuelo MRSA [id number] 11:13:54 Test Item Value Reference Range Interpretation Comments CULTURE (BellaboxAKER) (test code No MRSA isolated = 1095) HEPATIC FUNCTION [id number] 10:59:43 Test Item Value Reference Range Interpretation Comments TOTAL PROTEIN (BellaboxAKER) (test code = 5.6 gm/dL 6.0-8.3 L 770) ALBUMIN (BEAKER) (test code = 1145) 2.7 g/dL 3.5-5.0 L BILIRUBIN TOTAL (BEAKER) (test code 0.7 mg/dL 0.2-1.2 = 377) BILIRUBIN DIRECT (BEAKER) (test 0.3 mg/dL 0.1-0.5 code = 706) ALKALINE PHOSPHATASE (BEAKER) (test 149 U/L 40-150 code = 346) AST (SGOT) (BEAKER) (test code = 30 U/L 5-34 353) ALT (SGPT) (BEAKER) (test code = 95 U/L 6-55 H 347) Roll Icer ID - EMMANUELSPUTUM CULTURE + GRAM [id number] 10:28:41 Test Item Value Reference Range Interpretation Comments CULTURE (BEAKER) 4+ Normal respiratory (test code = 1095) stacy present GRAM STAIN RESULT 1+ WBCs (BEAKER) (test code = 1123) GRAM STAIN RESULT 0-5 epithelial cells (BEAKER) (test code = 21399) GRAM STAIN RESULT 1+ yeast (BEAKER) (test code = 85463) GRAM STAIN RESULT 1+ gram variable rods (BEAKER) (test code = 316109) [id number] 06:35:30 Test Item Value Reference Range Interpretation Comments MAGNESIUM (BEAKER) (test code = 1.7 mg/dL 1.6-2.6 627) Roll Icer ID Aubrey ALSTON [id number] 06:35:30 Test Item Value Reference Range Interpretation Comments PHOSPHORUS (BEAKER) (test code = 1.8 mg/dL 2.3-4.7 L 604) Roll Icer ID - ALECIA WBASIC METABOLIC [id number] 06:35:29 Test Item Value Reference Range Interpretation Comments SODIUM (BEAKER) 140 meq/L 136-145 (test code = 381) POTASSIUM 3.3 meq/L 3.5-5.1 L (BEAKER) (test code = 379) CHLORIDE (BEAKER) 108 meq/L 98-107 H (test code = 382) CO2 (BEAKER) 24 meq/L 22-29 (test code = 355) BLOOD UREA 20 mg/dL 7-21 NITROGEN (BEAKER) (test code = 354) CREATININE 0.73 mg/dL 0.57-1.25 (BEAKER) (test code = 358) GLUCOSE RANDOM 122 mg/dL 70-105 H (BEAKER) (test code = 652) CALCIUM (BEAKER) 8.7 mg/dL 8.4-10.2 (test code = 697) EGFR (BEAKER) 120 Interpretatio n of eGFR (test code = mL/min/1.73 values Stage De scription 1092) sq m Result G1 Tyra l or high >=90 G2 Mildly decreased 60-89 G3a Mildl y to moderately 45-5 9 G3b Moderately to s everely 30-44 G4 Severl y decreased 15-29 G5 Kidney failure <15Reported eGF R is based on the CKD-EPI 2020 equation that d oes not use a race coefficientEsti mated GFR is not as accur ate as Creatinine Papi sandor in predicting glom erular filtration rate . Estimated GFR is not appl icable for dialysis patien ts Roll Icer ID - ALECIA WCBC W/PLT COUNT & AUTO [id number] 06:16:58 Test Item Value Reference Range Interpretation Comments WHITE BLOOD CELL COUNT Possi ble contamination (BEAKER) (test code = notifi ed to 775) B.no.[id number].Thi s is a corrected resul t. Previous result was 12.4 K/ L on 03/11/20 at 0556 HOUSING COORDINATOR RED BLOOD CELL COUNT Possibl e contamination (BEAKER) (test code = notifi ed to 761) B.no.860035.Thi s is a corrected resul t. Previous result was 3.79 M/ L on 03/11/20 22 at 0556 HOUSING COORDINATOR HEMOGLOBIN (BEAKER) Possible contamination (test code = 410) notified t o B.no.438493.Thi s is a corrected resul t. Previous result was 11.1 GM/DL on 022 at 0556 HOUSING COORDINATOR HEMATOCRIT (BEAKER) Possible contamination (test code = 411) notified t o B.no.408111.Thi s is a corrected resul t. Previous result was 32.8 % on 03/11/2022 at 0556 HOUSING COORDINATOR MEAN CORPUSCULAR VOLUME Poss ible contamination (BEAKER) (test code = notifi ed to 753) B.no.362314.Thi s is a corrected resul t. Previous result was 87 fL on 03/11/2022 at 0556 HOUSING COORDINATOR MEAN CORPUSCULAR Possible co ntamination HEMOGLOBIN (BEAKER) notified to (test code = 751) B.no.17859 5.This is a corrected resul t. Previous result was 29.3 pg on 03/11/2022 at 0556 HOUSING COORDINATOR MEAN CORPUSCULAR Possible co ntamination HEMOGLOBIN CONC (BEAKER) not ified to (test code = 752) B.no.42047 5.This is a corrected resul t. Previous result was 33.8 GM/DL on 022 at 0556 HOUSING COORDINATOR RED CELL DISTRIBUTION Possib le contamination WIDTH (BEAKER) (test notifie d to code = 412) B.no.819005.Thi s is a corrected resul t. Previous result was 14.8 % on 03/11/2022 at 0556 HOUSING COORDINATOR PLATELET COUNT (BEAKER) Poss ible contamination (test code = 756) notified t o B.no.075465.Thi s is a corrected resul t. Previous result was 157 K/CU MM on 03/11 at 0556 HOUSING COORDINATOR MEAN PLATELET VOLUME Possibl e contamination (BEAKER) (test code = notifi ed to 754) B.no.688274.Thi s is a corrected resul t. Previous result was 10.7 fL on 03/11/2022 at 0556 HOUSING COORDINATOR NUCLEATED RED BLOOD Possible contamination CELLS (BEAKER) (test notifie d to code = 413) B.no.677164.Thi s is a corrected resul t. Previous result was 0 /100 WBC on 03/11/2022 at 0556 HOUSING COORDINATOR BLOOD GAS, [id number] 06:07:30 Test Item Value Reference Range Interpretation Comments PH ARTERIAL (BEAKER) (test code = 7.46 7.35-7.45 H 383) PCO2 ARTERIAL (BEAKER) (test code 33 mm Hg 35-45 L = 384) PO2 ARTERIAL (BEAKER) (test code = 185 mm Hg 80-90 H 385) O2 SATURATION ARTERIAL (BEAKER) 99.4 % 96.0-97.0 H (test code = 386) HCO3 ARTERIAL (BEAKER) (test code 23 mmol/L 21-29 = 388) BASE EXCESS ARTERIAL (BEAKER) 0.0 mmol/L -2.0-3.0 (test code = 387) PATIENT TEMPERATURE (BEAKER) (test 37.0 code = 1818) FIO2 (BEAKER) (test code = 1819) 75.0 POCT-GLUCOSE [id number] 01:31:40 Test Item Value Reference Range Interpretation Comments POC-GLUCOSE METER 138 mg/dL 70-110 H : TESTED A T [facility] 6720 (BEAKER) (test code = [place], 1538) [address]: Roll Icer/Techni carroll ID = [id number] for Ib arra, [place] CT, BRAIN, WITHOUT [id number] 22:49:00 [facility] : 1985 Sex: MFINAL REPORT EXAM: CT, BRAIN, WITHOUT CONTRAST INDICATION: Mental status change, unknown cause TECHNIQUE: CT images from skull base to vertex without IV contrast. This exam was performed according to the departmental dose optimization program which includes automated exposure control,adjustment of the mA and/or kV according to the patient size, and/or use of an iterative reconstruction technique. COMPARISON: 11/24/2021 MRI. FINDINGS: Parenchyma: No evidence of acute infarction. There is encephalomalacia in the bilateral lentiform nuclei. No hemorrhage. No mass or mass effect. Moderate generalized cerebral and cerebellar parenchymal volume loss. Extra-axial Collection: None Ventricular System: Ventriculomegaly favored to be due to ex vacuo dilatation. Osseous Structures: No acute osseous abnormality. Included Orbits: Normal Paranasal Sinuses: Predominantly clear Tympanomastoid Cavities: Trace bilateral mastoid effusions Other: None IMPRESSION: 1. No acute abnormality on CT head w ithout contrast. 2. Encephalomalacia of the bilateral lentiform nuclei compatible with prior hypoxicor metabolic insult. 3. Moderate generalized brain atrophy advanced for patient's age. Signed: Velvet Vargas MDReport Verified Date/Time: 03/10/2022 22:49:59 CALCIUM, [id number] 20:44:25 Test Item Value Reference Range Interpretation Comments CALCIUM IONIZED (BEAKER) (test 1.05 mmol/L 1.12-1.27 L code = 698) PH, BLOOD (BEAKER) (test code = 7.50 1810) LACTIC ACID, [id number] 17:11:26 Test Item Value Reference Range Interpretation Comments LACTATE BLOOD ARTERIAL (2) 2.0 mmol/L 0.5-2.2 (BEAKER) (test code = 2874) Roll Icer ID - adryan bBLOOD GAS, [id number] 16:14:19 Test Item Value Reference Range Interpretation Comments PH ARTERIAL (BEAKER) (test code = 7.53 7.35-7.45 H 383) PCO2 ARTERIAL (BEAKER) (test code 29 mm Hg 35-45 L = 384) PO2 ARTERIAL (BEAKER) (test code = 129 mm Hg 80-90 H 385) O2 SATURATION ARTERIAL (BEAKER) 98.9 % 96.0-97.0 H (test code = 386) HCO3 ARTERIAL (BEAKER) (test code 24 mmol/L 21-29 = 388) BASE EXCESS ARTERIAL (BEAKER) 2.1 mmol/L -2.0-3.0 (test code = 387) PATIENT TEMPERATURE (BEAKER) (test 37.0 code = 1818) FIO2 (BEAKER) (test code = 1819) 21.0 POCT-GLUCOSE [id number] 16:09:29 Test Item Value Reference Range Interpretation Comments POC-GLUCOSE METER 144 mg/dL 70-110 H : TESTED A T [facility] 6720 (BEAKER) (test code = [place], 1538) [address]: Roll Icer/Techni carroll ID = [id number] for Damián reynaldo (contract)Consuelo B-TYPE NATRIURETIC FACTOR (BNP)2022-03-10 13:04:31 Test Item Value Reference Range Interpretation Comments B-TYPE NATRIURETIC PEPTIDE (BEAKER) 106 pg/mL 0-100 H (test code = 700) Roll Icer ID - adryan bBASIC METABOLIC [id number] 12:58:26 Test Item Value Reference Range Interpretation Comments SODIUM (BEAKER) 143 meq/L 136-145 (test code = 381) POTASSIUM 3.8 meq/L 3.5-5.1 (BEAKER) (test code = 379) CHLORIDE (BEAKER) 110 meq/L 98-107 H (test code = 382) CO2 (BEAKER) 22 meq/L 22-29 (test code = 355) BLOOD UREA 19 mg/dL 7-21 NITROGEN (BEAKER) (test code = 354) CREATININE 0.81 mg/dL 0.57-1.25 (BEAKER) (test code = 358) GLUCOSE RANDOM 124 mg/dL 70-105 H (BEAKER) (test code = 652) CALCIUM (BEAKER) 8.9 mg/dL 8.4-10.2 (test code = 697) EGFR (BEAKER) 117 Interpretatio n of eGFR (test code = mL/min/1.73 values Stage De scription 1092) sq m Result G1 Tyra l or high >=90 G2 Mildly decreased 60-89 G3a Mildl y to moderately 45-5 9 G3b Moderately to s everely 30-44 G4 Severl y decreased 15-29 G5 Kidney failure <15Reported eGF R is based on the CKD-EPI 2020 equation that d oes not use a race coefficientEsti mated GFR is not as accur ate as Creatinine Papi sandor in predicting glom erular filtration rate . Estimated GFR is not appl icable for dialysis patien ts Roll Icer ID - adryan bVANCOMYCIN LEVEL, [id number] 12:03:35 Test Item Value Reference Range Interpretation Comments VANCOMYCIN TROUGH (BEAKER) (test 24.7 ug/mL 10.0-20.0 H code = 522) Roll Icer ID - adryan bPOCT-GLUCOSE [id number] 11:33:27 Test Item Value Reference Range Interpretation Comments POC-GLUCOSE METER 111 mg/dL 70-110 H : TESTED A T [facility] 6720 (BEAKER) (test code = [place], 1538) [address]: Roll Icer/Techni carroll ID = [id number] for Damián jacobs (contract), Consuelo nifer RAD, ABDOMEN/KUB, 1 VIEW [id number] 09:51:00Reason for exam:->Feeding tube placement[facility] : 1985 Sex: MFINAL REPORT ONE VIEW ABDOMEN HISTORY: Feeding tube placement COMPARISON:No prior comparison abdominal imaging FINDINGS: Single supine AP image of the abdomen was obtained. Feeding tube tip is in the region of the duodenal bulb. The stomach is gas-filled and nondistended. No dilated bowel loops are visualized. No renal calcifications are identified. IMPRESSION: Feeding tube tip is inthe region of the duodenal bulb. Signed: Stevie Minor MDReport Verified Date/Time: 03/10/2022 09:51:14 RAD, CHEST, 1 VIEW, NON [id number] 09:22:00Reason for exam:->ettShould this be performed at the bedside?->Yes [facility] : 1985 Sex: MFINAL REPORT CHEST ONE VIEW HISTORY: Endotracheal tube COMPARISON: 03/10/2022 at 0210 hours FINDINGS: Single portable AP examination of the chest was performed. Interval endotracheal intubation. The tip of the endotracheal tube is 5 cm proximal to the akbar. Feeding tube tip is in theregion of the duodenal bulb. A right-sided chest tube remains in place, without evidence of a pneumothorax. Bilateral pulmonary opacities are unchanged in appearance. No pleural effusions or pneumothorax are identified. The cardiac shadow is partially obscured. Signed: Stevie Minoreport Verified Date/Time: 03/10/2022 09:22:51 IC ACID, [id number] 09:14:27 Test Item Value Reference Range Interpretation Comments LACTATE BLOOD 2.4 mmol/L 0.5-2.2 H Specimen sligh tly ARTERIAL (2) (BEAKER) hemoly zed (test code = 2874) Roll Icer ID - adryan bBLOOD GAS, [id number] 09:07:32 Test Item Value Reference Range Interpretation Comments PH ARTERIAL (BEAKER) (test code = 7.51 7.35-7.45 H 383) PCO2 ARTERIAL (BEAKER) (test code 30 mm Hg 35-45 L = 384) PO2 ARTERIAL (BEAKER) (test code = 131 mm Hg 80-90 H 385) O2 SATURATION ARTERIAL (BEAKER) 98.9 % 96.0-97.0 H (test code = 386) HCO3 ARTERIAL (BEAKER) (test code 23 mmol/L 21-29 = 388) BASE EXCESS ARTERIAL (BEAKER) 0.9 mmol/L -2.0-3.0 (test code = 387) PATIENT TEMPERATURE (BEAKER) (test 37.0 code = 1818) FIO2 (BEAKER) (test code = 1819) 100.0 CBC W/PLT COUNT & AUTO [id number] 07:10:25 Test Item Value Reference Range Interpretation Comments WHITE BLOOD CELL COUNT (BEAKER) 2.9 K/ L 3.5-10.5 L (test code = 775) RED BLOOD CELL COUNT (BEAKER) 4.83 M/ L 4.63-6.08 (test code = 761) HEMOGLOBIN (BEAKER) (test code = 14.2 GM/DL 13.7-17.5 410) HEMATOCRIT (BEAKER) (test code = 42.9 % 40.1-51.0 411) MEAN CORPUSCULAR VOLUME (BEAKER) 89 fL 79-92 (test code = 753) MEAN CORPUSCULAR HEMOGLOBIN 29.4 pg 25.7-32.2 (BEAKER) (test code = 751) MEAN CORPUSCULAR HEMOGLOBIN CONC 33.1 GM/DL 32.3-36.5 (BEAKER) (test code = 752) RED CELL DISTRIBUTION WIDTH 14.5 % 11.6-14.4 H (BEAKER) (test code = 412) PLATELET COUNT (BEAKER) (test 110 K/CU MM 150-450 L code = 756) MEAN PLATELET VOLUME (BEAKER) 11.1 fL 9.4-12.4 (test code = 754) NUCLEATED RED BLOOD CELLS 0 /100 WBC 0-0 (BEAKER) (test code = 413) (CELLAVISION MANUAL DIFF)2022-03-10 07:10:25 Test Item Value Reference Range Interpretation Comments NEUTROPHILS - REL 17 % (CELLAVISION)(BEAKER) (test code = 2816) LYMPHOCYTES - REL 6 % (CELLAVISION)(BEAKER) (test code = 2817) MONOCYTES - REL 12 % (CELLAVISION)(BEAKER) (test code = 2818) BASOPHILS - REL 1 % (CELLAVISION)(BEAKER) (test code = 2820) METAMYELOCYTES - REL 25 % 0-0 H (CELLAVISION)(BEAKER) (test code = 2821) MYELOCYTES - REL 4 % 0-0 H (CELLAVISION)(BEAKER) (test code = 2822) BANDS - REL (CELLAVISION)(BEAKER) 35 % 0-10 H (test code = 2826) NEUTROPHILS - ABS 0.49 K/ul 1.78-5.38 L (CELLAVISION)(BEAKER) (test code = 2830) LYMPHOCYTES - ABS 0.17 K/ul 1.32-3.57 L (CELLAVISION)(BEAKER) (test code = 2831) MONOCYTES - ABS 0.35 K/uL 0.30-0.82 (CELLAVISION)(BEAKER) (test code = 2832) BASOPHILS - ABS 0.03 K/uL 0.01-0.08 (CELLAVISION)(BEAKER) (test code = 2835) METAMYELOCYTES - ABS 0.73 K/uL 0.00-0.00 H (CELLAVISION)(BEAKER) (test code = 2836) MYELOCYTES-ABS 0.12 K/uL 0.00-0.00 H (CELLAVISION)(BEAKER) (test code = 2837) BANDS - ABS (CELLAVISION)(BEAKER) 1.02 K/uL 0.00-0.80 H (test code = 2840) TOTAL COUNTED (BEAKER) (test code 100 = 1351) PLT MORPHOLOGY (BEAKER) (test Normal code = 486) SMUDGE CELLS (BEAKER) (test code Present = 1371) TOXIC GRANULATION (BEAKER) (test Present code = 771) ANISOCYTOSIS (BEAKER) (test code 1+ few = 961) MICROCYTES (BEAKER) (test code = 1+ few 965) POIKILOCYTES (BEAKER) (test code 2+ moderate = 966) MARLON CELLS (BEAKER) (test code = 2+ moderate 474) PLATELET CONCENTRATION Decreased (CELLAVISION)(BEAKER) (test code = 3438) Roll Icer ID - [id number] ID - Charles Dato-onUser comments: Slide comments: BLOOD GAS, [id number] 07:09:00 Test Item Value Reference Range Interpretation Comments PH ARTERIAL (BEAKER) (test code = 7.36 7.35-7.45 383) PCO2 ARTERIAL (BEAKER) (test code 50 mm Hg 35-45 H = 384) PO2 ARTERIAL (BEAKER) (test code = 183 mm Hg 80-90 H 385) O2 SATURATION ARTERIAL (BEAKER) 99.1 % 96.0-97.0 H (test code = 386) HCO3 ARTERIAL (BEAKER) (test code 27 mmol/L 21-29 = 388) BASE EXCESS ARTERIAL (BEAKER) 1.1 mmol/L -2.0-3.0 (test code = 387) PATIENT TEMPERATURE (BEAKER) (test 38.3 code = 1818) FIO2 (BEAKER) (test code = 1819) 100.0 BLOOD GAS, [id number] 04:14:34 Test Item Value Reference Range Interpretation Comments PH VENOUS (BEAKER) (test code = 7.35 7.32-7.42 701) PCO2 VENOUS (BEAKER) (test code = 45 mm Hg 41-51 755) PO2 VENOUS (BEAKER) (test code = 102 mm Hg 25-40 H 702) O2 SATURATION VENOUS (BEAKER) 97.4 % 40.0-70.0 H (test code = 703) HCO3 VENOUS (BEAKER) (test code = 25 mmol/L 21-29 705) BASE EXCESS VENOUS (BEAKER) (test -1.2 mmol/L -2.0-3.0 code = 704) PATIENT TEMPERATURE (BEAKER) 37.0 (test code = 1818) [id number] 03:43:27 Test Item Value Reference Range Interpretation Comments PHOSPHORUS (BEAKER) 2.9 mg/dL 2.3-4.7 Specimen slightly (test code = 604) hemolyzed Roll Icer ID - ALECIA WBASIC METABOLIC [id number] 03:43:27 Test Item Value Reference Range Interpretation Comments SODIUM (BEAKER) 145 meq/L 136-145 (test code = 381) POTASSIUM 3.7 meq/L 3.5-5.1 Specimen slight ly (BEAKER) (test hemolyzed code = 379) CHLORIDE (BEAKER) 110 meq/L 98-107 H (test code = 382) CO2 (BEAKER) 24 meq/L 22-29 (test code = 355) BLOOD UREA 17 mg/dL 7-21 NITROGEN (BEAKER) (test code = 354) CREATININE 0.60 mg/dL 0.57-1.25 Specimen slight ly (BEAKER) (test hemolyzed code = 358) GLUCOSE RANDOM 94 mg/dL 70-105 (BEAKER) (test code = 652) CALCIUM (BEAKER) 9.5 mg/dL 8.4-10.2 (test code = 697) EGFR (BEAKER) 126 Interpretatio n of eGFR (test code = mL/min/1.73 values Stage De scription 1092) sq m Result G1 Tyra l or high >=90 G2 Mildly decreased 60-89 G3a Mildl y to moderately 45-5 9 G3b Moderately to s everely 30-44 G4 Severl y decreased 15-29 G5 Kidney failure <15Reported eGF R is based on the CKD-EPI 2020 equation that d oes not use a race coefficientEsti mated GFR is not as accur ate as Creatinine [place] sandor in predicting glom erular filtration rate . Estimated GFR is not appl icable for dialysis patien ts Roll Icer ID - ALECIA [id number] 03:43:26 Test Item Value Reference Range Interpretation Comments MAGNESIUM (BEAKER) 1.5 mg/dL 1.6-2.6 L Specimen slightly (test code = 627) hemolyzed Roll Icer ID - ALECIA WLACTIC ACID, [id number] 03:37:04 Test Item Value Reference Range Interpretation Comments LACTATE BLOOD VENOUS 2.12 mmol/L 0.50-2.20 Specime n moderately (2) (BEAKER) (test hemolyzed code = 2872) Roll Icer ID - BSRAD, CHEST, 1 VIEW, NON [id number] 03:15:00Reason for exam:- >pneumothorax s/p chest tubeShould this be performed at the bedside?->Yes [facility] 1985 Sex: MFINAL REPORT PORTABLE AP CHEST ORDERED AT 03/10/2022 2:48 AM HISTORY: Pneumothorax status post chest tube. COMPARISON: Chest radiograph 03/10/2022 IMPRESSION: Decrease in size of pneumothorax that has near completely resolved following chest tube placement. Extensive bilateral consolidation similar to the previous exam. No evidence of effusion. Signed: Amelia Good Verified Date/Time: 03/10/2022 03:15:54 RAD, CHEST, 1 VIEW, NON [id number] 02:09:00Reason for exam:->short of breathShould this be performed at the bedside?->Yes [facility] 1985 Sex: MFINAL REPORT RAD, CHEST, 1 VIEW, NON DEPT INDICATION: short of breath COMPARISON: Exam from 7 hours prior FINDINGS: Portable frontal view of the chest. IMPRESSION: Support Lines: None Lungs and pleura: There is a new large right pneumothorax. Increased airspace opacification of the right lung related to atelectasis and increased opacification of left lung concerning for worsening edema or pneumonia. Heart and mediastinum: Stable contours. Additional findings: None. The findings werediscussed with nurse Woofom on 03/10/22 at the time of dictation who will relay them to the physician. Signed: Velvet Vargas [facility]ITALeport Verified Date/Time: 03/10/2022 02:09:20 BLOOD GAS, [id number] 01:41:35 Test Item Value Reference Range Interpretation Comments PH VENOUS (BEAKER) (test code = 7.32 7.32-7.42 701) PCO2 VENOUS (BEAKER) (test code = 52 mm Hg 41-51 H 755) PO2 VENOUS (BEAKER) (test code = 84 mm Hg 25-40 H 702) O2 SATURATION VENOUS (BEAKER) 95.4 % 40.0-70.0 H (test code = 703) HCO3 VENOUS (BEAKER) (test code = 26 mmol/L 21-29 705) BASE EXCESS VENOUS (BEAKER) (test -0.9 mmol/L -2.0-3.0 code = 704) PATIENT TEMPERATURE (BEAKER) 37.0 (test code = 1818) CALCIUM, [id number] 01:41:34 Test Item Value Reference Range Interpretation Comments CALCIUM IONIZED (BEAKER) (test 1.10 mmol/L 1.12-1.27 L code = 698) PH, BLOOD (BEAKER) (test code = 7.32 1810) POCT-GLUCOSE [id number] 01:21:58 Test Item Value Reference Range Interpretation Comments POC-GLUCOSE METER 103 mg/dL 70-110 : TESTED A T BSC 6720 (BEAKER) (test code = GRADY Mcgarry [facility], 1538) 17131: Roll Icer/Techni carroll ID = [id number] for MARGOTH GERMANE BRIAN B-TYPE NATRIURETIC FACTOR (BNP)2022-03-09 20:37:23 Test Item Value Reference Range Interpretation Comments B-TYPE NATRIURETIC PEPTIDE (BEAKER) 41 pg/mL 0-100 (test code = 700) Roll Icer ID - BSHIGH SENSITIVITY TROPONIN [id number] 20:37:05 Test Item Value Reference Range Interpretation Comments HIGH SENSITIVITY < pg/ml See_Comment [Automated message] TROPONIN I (test code = The system which [id number]) generated this result transmitted ref erence range: <=35. Th e reference range was not used to interpr et this result as normal/abnormal . Roll Icer ID - BSThe LACE ROLLER STAT High Sensitivity Troponin-I results should be used in conjunctionwith other diagnostic information such as ECG, clinical observations and information, and patient symptoms to aid in the diagnosis of SC.BLOOD GAS, [id number] 18:19:41 Test Item Value Reference Range Interpretation Comments PH VENOUS (BEAKER) (test code = 7.32 7.32-7.42 701) PCO2 VENOUS (BEAKER) (test code = 52 mm Hg 41-51 H 755) PO2 VENOUS (BEAKER) (test code = 166 mm Hg 25-40 H 702) O2 SATURATION VENOUS (BEAKER) 99.0 % 40.0-70.0 H (test code = 703) HCO3 VENOUS (BEAKER) (test code = 26 mmol/L 21-29 705) BASE EXCESS VENOUS (BEAKER) (test -1.0 mmol/L -2.0-3.0 code = 704) PATIENT TEMPERATURE (BEAKER) 36.5 (test code = 1818) FIO2 (BEAKER) (test code = 1819) 80.0 RAD, CHEST, 1 VIEW, NON [id number] 18:10:00Reason for exam:->SHORTNESS OF BREATHReason for exam:->GENERALIZED WEAKNESS, NOT ASSOCIATED WITH EXTREMITIESShould this be performed at the bedside?->Yes [facility] 1985 Sex: MFINAL REPORT TECHNIQUE: Frontal view of the chest. INDICATION: SHORTNESS OF BREATHGENERALIZED WEAKNESS, NOT ASSOCIATED WITH EXTREMITIES. COMPARISON: 03/08/2022. FINDINGS: LINES/TUBES: None. HEART AND MEDIASTINUM: Cardiomediastinal contour is stable. LUNGS: Dense perihilar consolidative opacities, increased compared to the prior examination. PLEURA: No pneumothorax. No significant pleu ral effusion. SOFT TISSUES AND BONES: Levoconvex scoliosis of the thoracic spine. IMPRESSION:Dense perihilar consolidative opacities, increased compared to the prior examination and may be related to multifocal pneumonia, massive aspiration or less likely pulmonary edema. Signed: Jesse Sarmiento MDReport Verified Date/Time: 03/09/2022 18:10:51 Electronically signed by: Tin GANDARA 03/09/2022 06:10 PMURINALYSIS W/ REFLEX URINE CULTURE 2022-03-09 09:50:46 Test Item Value Reference Range Interpretation Comments COLOR (BEAKER) (test code = 470) Yellow CLARITY (BEAKER) (test code = 469) Clear SPECIFIC GRAVITY UA (BEAKER) (test 1.029 1.001-1.035 code = 468) PH UA (BEAKER) (test code = 467) 6.0 5.0-8.0 PROTEIN UA (BEAKER) (test code = 20 mg/dL Negative A 464) GLUCOSE UA (BEAKER) (test code = Negative Negative 365) KETONES UA (BEAKER) (test code = Negative Negative 371) BILIRUBIN UA (BEAKER) (test code = Negative Negative 462) BLOOD UA (BEAKER) (test code = 461) Negative Negative NITRITE UA (BEAKER) (test code = Negative Negative 465) LEUKOCYTE ESTERASE UA (BEAKER) (test Negative Negative code = 466) UROBILINOGEN UA (BEAKER) (test code 0.2 0.2-1.0 = 463) RBC UA (BEAKER) (test code = 519) 2 /HPF WBC UA (BEAKER) (test code = 520) 0 /HPF HYALINE CASTS (BEAKER) (test code = 2 /LPF 514) SOURCE(BEAKER) (test code = 2795) Roll Icer ID - [auto]Roll Icer ID - techRespiratory Panel [id number] 09:04:45 Test Item Value Reference Interpretation Comments Range Human Metapneumovirus Not detected Not detected, (test code = 91665-8) Equivocal Rhinovirus (test code Not detected Not detected, = 75202-4) Equivocal INFLUENZA A (NO Please refer to SUBTYPE) (test code = 22M-33 8E5509 24342-7) for results. Previous SARS/FLU/RSV result within 24 hours. Please recollect after 24 hours from previous collection time. Influenza A subtype H1 (test code = 52361-2) Influenza A Subtype H3 (test code = 48063-5) Influenza A Subtype H1-2009 (test code = 45938-2) Influenza B (test Please ref er to code = 49998-3) [id number] for results. Respiratory Syncytial Please refer to Virus (test code = 22M-336R0 019 51252-1) for results. Parainfluenza Virus 1 Not detected Not detected, (test code = 32345-7) Equivocal Parainfluenza Virus 2 Not detected Not detected, (test code = 87233-2) Equivocal Parainfluenza virus 3 Not detected Not detected, (test code = 78564-7) Equivocal Parainfluenza Virus 4 Not detected Not detected, (test code = 08569-6) Equivocal Adenovirus (test code Not detected Not detected, = 27282-9) Equivocal Coronavirus 229E Not detected Not detected, (test code = 72132-0) Equivocal Coronavirus HKU1 Not detected Not detected, (test code = 21269-1) Equivocal Coronavirus NL63 Not detected Not detected, (test code = 57643-6) Equivocal Coronavirus OC43 Not detected Not detected, (test code = 99481-8) Equivocal Bordetella Pertussis Not detected Not detected, (test code = 38979-9) Equivocal Chlamydophila Not detected Not detected, Pneumoniae (test code Equivocal = 11582-3) Mycoplasma Pneumoniae Not detected Not detected, (test code = 99954-5) Equivocal Severe Acute Please refer to Tfmxiousvad-ZvX-6 22M-336R00 19 (test code = 22852-6) for re sults. Bordtella Not detected Not detected, Parapertussis (test Equivocal code = 54542-6) CHRISTINA (test code = CHRISTINA) Other viruses and bacteria not targeted by this PCR panel cannot be excluded; therefore clinical correlation and follow up of serology, culture results, and other molecular studies is required. The results are not intended to be used as the sole means for clinical diagnosis or patient management decisions. This sample was tested at the [facility] using the HX DiagnosticsArray Respiratory Panel. It is FDA cleared and has been verified and approved by the [facility] for clinical use on nasopharyngeal swab specimens. The performance of the FilmArray RP has not been established in individuals who received influenza vaccine. Recent administration of a nasal influenza vaccine may cause false positive results for Influenza A and/orInfluenza B. [facility] [id number] 09:04:45 Test Item Value Reference Interpretation Comments Range Human Metapneumovirus Not detected Not detected, (test code = 93798-5) Equivocal Rhinovirus (test code Not detected Not detected, = 54993-3) Equivocal INFLUENZA A (NO Please refer to SUBTYPE) (test code = 22M-33 [id number] 35843-3) for results. Previous SARS/FLU/RSV result within 24 hours. Please recollect after 24 hours from previous collection time. Influenza A subtype H1 (test code = 39789-0) Influenza A Subtype H3 (test code = 73256-8) Influenza A Subtype H1-2009 (test code = 76373-8) Influenza B (test Please ref er to code = 21146-7) [id number] for results. Respiratory Syncytial Please refer to Virus (test code = 22M-336R0 019 25931-4) for results. Parainfluenza Virus 1 Not detected Not detected, (test code = 12470-3) Equivocal Parainfluenza Virus 2 Not detected Not detected, (test code = 36089-8) Equivocal Parainfluenza virus 3 Not detected Not detected, (test code = 94930-0) Equivocal Parainfluenza Virus 4 Not detected Not detected, (test code = 90079-6) Equivocal Adenovirus (test code Not detected Not detected, = 94697-9) Equivocal Coronavirus 229E Not detected Not detected, (test code = 74007-7) Equivocal Coronavirus HKU1 Not detected Not detected, (test code = 83288-7) Equivocal Coronavirus NL63 Not detected Not detected, (test code = 24715-3) Equivocal Coronavirus OC43 Not detected Not detected, (test code = 31917-8) Equivocal Bordetella Pertussis Not detected Not detected, (test code = 58166-0) Equivocal Chlamydophila Not detected Not detected, Pneumoniae (test code Equivocal = 41587-3) Mycoplasma Pneumoniae Not detected Not detected, (test code = 76759-7) Equivocal Severe Acute Please refer to Qifkickmfme-ItY-2 22M-336R00 19 (test code = 51192-2) for re sults. Bordtella Not detected Not detected, Parapertussis (test Equivocal code = 52706-1) CHRISTINA (test code = CHRISTINA) Other viruses and bacteria not targeted by this PCR panel cannot be excluded; therefore clinical correlation and follow up of serology, culture results, and other molecular studies is required. The results are not intended to be used as the sole means for clinical diagnosis or patient management decisions. This sample was tested at the [facility]ostics [facility] using the [facility] [facility] FilmArray Respiratory Panel. It is FDA cleared and has been verified and approved by the [facility] for clinical use on nasopharyngeal swab specimens. The performance of the FilmArray RP has not been established in individuals who received influenza vaccine. Recent administration of a nasal influenza vaccine may cause false positive results for Influenza A and/orInfluenza B. [facility] CenterRESPIRATORY [id number] 09:04:45 Test Item Value Reference Range Interpretation Comments HUMAN METAPNEUMOVIRUS Not detected Not detected, (BEAKER) (test code = Equivocal 2683) RHINOVIRUS (BEAKER) Not detected Not detected, (test code = 2684) Equivocal INFLUENZA A (BEAKER) Please refer to (test code = 2685) 22M-336R0 019 for results. Previo us SARS/FLU/RSV result within 2 4 hours. Please recollect after 24 hours from previous collection time . INFLUENZA A (NO SUBTYPE) (test code = 3606) INFLUENZA A SUBTYPE H1 (BEAKER) (test code = 2686) INFLUENZA A SUBTYPE H3 (BEAKER) (test code = 2687) INFLUENZA A SUBTYPE H1-2009 (BEAKER) (test code = 3198) INFLUENZA B (BEAKER) Please refer to (test code = 2688) 22M-336R0 019 for results. RESPIRATORY SYNCYTIAL Please refer to VIRUS (BEAKER) (test 22M-336 R0019 for code = 3199) results. PARAINFLUENZA VIRUS 1 Not detected Not detected, (BEAKER) (test code = Equivocal 2691) PARAINFLUENZA VIRUS 2 Not detected Not detected, (BEAKER) (test code = Equivocal 2692) PARAINFLUENZA VIRUS 3 Not detected Not detected, (BEAKER) (test code = Equivocal 2693) PARAINFLUENZA VIRUS 4 Not detected Not detected, (BEAKER) (test code = Equivocal 3200) ADENOVIRUS (BEAKER) Not detected Not detected, (test code = 2694) Equivocal CORONAVIRUS 229E Not detected Not detected, (BEAKER) (test code = Equivocal 3201) CORONAVIRUS HKU1 Not detected Not detected, (BEAKER) (test code = Equivocal 3202) CORONAVIRUS NL63 Not detected Not detected, (BEAKER) (test code = Equivocal 3203) CORONAVIRUS OC43 Not detected Not detected, (BEAKER) (test code = Equivocal 3204) BORDETELLA PERTUSSIS Not detected Not detected, (BEAKER) (test code = Equivocal 3205) CHLAMYDOPHILA Not detected Not detected, PNEUMONIAE (BEAKER) Equivocal (test code = 3206) MYCOPLASMA PNEUMONIAE Not detected Not detected, (BEAKER) (test code = Equivocal 3207) SEVERE ACUTE Please refer to RESPIRATORY [id number] fo r [id number] resul ts. (test code = 9251481) BORDETELLA Not detected Not detected, PARAPERTUSSIS (BKR) Equivocal (test code = 2766314) Other viruses and bacteria not targeted by this PCR panel cannot be excluded; therefore clinical correlation and follow up of serology, culture results, and other molecular studies is required. The results are not intended to be used as the sole means for clinical diagnosis or patient management decisions. This sample was tested at the [facility] using the HX DiagnosticsArray Respiratory Panel. It is FDA cleared and has been verified and approved by the [facility] for clinical use on nasopharyngeal swab specimens.The performance of the FilmArrayRP has not been established in individuals who received influenza vaccine. Recent administration of a nasal influenza vaccine may cause false positive results for Influenza A and/orInfluenza B.[id number] 08:46:57 Test Item Value Reference Range Interpretation Comments PROCALCITONIN (BEAKER) (test code 1.67 ng/mL <0.05 H = 3036) SEPSIS RISK (ng/mL)Low: 0.05-0.50Intermediate: 0.51-2.00High: >=2.01LACTIC ACID, [id number] 08:17:45 Test Item Value Reference Range Interpretation Comments LACTATE BLOOD VENOUS (2) (BEAKER) 1.60 mmol/L 0.50-2.20 (test code = 2872) Roll Icer ID - UMANG(CELLAVISION MANUAL DIFF)2022-03-09 07:08:03 Test Item Value Reference Range Interpretation Comments NEUTROPHILS - REL 42 % (CELLAVISION)(BEAKER) (test code = 2816) LYMPHOCYTES - REL 11 % (CELLAVISION)(BEAKER) (test code = 2817) MONOCYTES - REL 5 % (CELLAVISION)(BEAKER) (test code = 2818) METAMYELOCYTES - REL 1 % 0-0 H (CELLAVISION)(BEAKER) (test code = 2821) MYELOCYTES - REL 1 % 0-0 H (CELLAVISION)(BEAKER) (test code = 2822) BANDS - REL (CELLAVISION)(BEAKER) 38 % 0-10 H (test code = 2826) ATYPICAL LYMPHOCYTES - REL 1 % 0-0 H (CELLAVISION)(BEAKER) (test code = 2829) NEUTROPHILS - ABS 3.49 K/ul 1.78-5.38 (CELLAVISION)(BEAKER) (test code = 2830) LYMPHOCYTES - ABS 0.91 K/ul 1.32-3.57 L (CELLAVISION)(BEAKER) (test code = 2831) MONOCYTES - ABS 0.42 K/uL 0.30-0.82 (CELLAVISION)(BEAKER) (test code = 2832) METAMYELOCYTES - ABS 0.08 K/uL 0.00-0.00 H (CELLAVISION)(BEAKER) (test code = 2836) MYELOCYTES-ABS 0.08 K/uL 0.00-0.00 H (CELLAVISION)(BEAKER) (test code = 2837) BANDS - ABS (CELLAVISION)(BEAKER) 3.15 K/uL 0.00-0.80 H (test code = 2840) ATYPICAL LYMPHOCYTES - ABS 0.08 K/uL 0.00-0.00 H (CELLAVISION)(BEAKER) (test code = 2858) TOTAL COUNTED (BEAKER) (test code 100 = 1351) MANUAL NRBC PER 100 CELLS (BEAKER) 2 /100 WBC 0-0 H (test code = 1353) WBC MORPHOLOGY (BEAKER) (test code Normal = 487) GIANT PLATELETS (BEAKER) (test Present code = 313) POLYCHROMATOPHILLIC RBCS(BEAKER) 3+ many (test code = 478) ANISOCYTOSIS (BEAKER) (test code = 1+ few 961) MICROCYTES (BEAKER) (test code = 1+ few 965) POIKILOCYTES (BEAKER) (test code = 1+ few 966) ELLIPTOCYTES (BEAKER) (test code = 1+ few 962) ARTIFACT (CELLAVISION)(BEAKER) Present (test code = 3432) PLATELET CONCENTRATION Decreased (CELLAVISION)(BEAKER) (test code = 3438) Roll Icer ID - [id number] ID - adryan Heck comments: Slide comments:CBC W/PLT COUNT & AUTO [id number] 07:08:02 Test Item Value Reference Range Interpretation Comments WHITE BLOOD CELL COUNT 8.3 K/ L 3.5-10.5 (BEAKER) (test code = 775) RED BLOOD CELL COUNT 4.62 M/ L 4.63-6.08 L (BEAKER) (test code = 761) HEMOGLOBIN (BEAKER) 13.5 GM/DL 13.7-17.5 L Discorda nt HGB (test code = 410) results co mpared to previous result s; clinical correl ation required. HEMATOCRIT (BEAKER) 41.0 % 40.1-51.0 (test code = 411) MEAN CORPUSCULAR 89 fL 79-92 VOLUME (BEAKER) (test code = 753) MEAN CORPUSCULAR 29.2 pg 25.7-32.2 HEMOGLOBIN (BEAKER) (test code = 751) MEAN CORPUSCULAR 32.9 GM/DL 32.3-36.5 HEMOGLOBIN CONC (BEAKER) (test code = 752) RED CELL DISTRIBUTION 14.3 % 11.6-14.4 WIDTH (BEAKER) (test code = 412) PLATELET COUNT 111 K/CU MM 150-450 L (BEAKER) (test code = 756) MEAN PLATELET VOLUME 11.1 fL 9.4-12.4 (BEAKER) (test code = 754) NUCLEATED RED BLOOD 0 /100 WBC 0-0 CELLS (BEAKER) (test code = 413) SARS-COV2/INFLUENZA/RSV [id number] 05:47:36 Test Item Value Reference Range Interpretation Comments SARS-COV2/RT-PCR Negative Negative The SARS-Co V-2 target (test code = nucleic acids a re not [id number]) detected in thi s specimen. Negat jeison results do not preclude SARS-CoV-2 infe ction and should not be u sed as the sole basis for patient management deci sions. Negative result s must be combined with c linical observations, p atient history, and epidemiological information. A false negative result may occur if a specimen i s improperly raudel ected, transported or handled. This SARS CoV-2 test is a rapid, real-francisco e RT-PCR test intended f or the qualitative det ection of nucleic acid fr om SARS-CoV-2 in a nasopharyngeal swab specimen collec claudio from individuals adan pected of COVID-19 by the [facility]. INFLUENZA A RT-PCR Negative Negative The Flu A target nucleic (test code = acids are not d etected in 19100512) this specimen. INFLUENZA B RT-PCR Negative Negative The Flu B target nucleic (test code = acids are not d etected in 19100513) this specimen. RSV RT-PCR (test Negative Negative The RSV tar get nucleic code = 19100514) acids are no t detected in this specimen. The presence of SARS-CoV-2/FLU/RSV viral nucleic acids cannot rule out co- infections or disease caused by other viral or bacterial pathogens. As with any molecular test, mutations within the target regions of the Xpert Xpress SARS-CoV-2/Flu/RSV test could affect primer and/or probe binding resulting in failure to detect the presence of virus or the virus being detected less predictably. False negative results may occur if the virus is present at levels below the analytical limit of detection in thisspecimen.This Xpert Xpress SARS-CoV-2/Flu/RSV test is a rapid, real-time RT-PCR test intended for the qualitative detection of nucleic acid from Xpert Xpress SARS-CoV-2/Flu/RSV in a nasopharyngeal swabspecimen collected from individuals suspected of Xpert Xpress SARS-CoV-2/Flu/RSV by their healthcareprovider. Results from antolin Xpert Xpress SARS-CoV-2/Flu/RSV test should be correlated with the clinical history, epidemiological data, and other data available to the clinician evaluating the patient. Viral nucleic acid may persist in vivo, independent of virus viability. Detection of analyte target(s)does not imply that the corresponding virus(es) are infectious or are the causative agents for clinical symptoms.This test has not been Food and Drug Administration (FDA) cleared or approved and has been authorized by FDA under an Emergency Use Authorization (EUA). This EUA will be effective until thedeclaration that circumstances exist justifying the authorization of the emergency use of in vitro diagnostic tests for detection and/or diagnosis of COVID-19 is terminated under Section 564(b)(2) of the Act or the EUA is revoked under Section 564(g) of the Act.Fact Sheet for Healthcare Providers:https ://www.[employer]/Documents/Xpert%20Xpress%20SARS%20CoV-2/Fact%20Sheets/302-390 2%37NXHN-HCH-9%20HEALTHCARE%20PROVIDERS%20FACT%20SHEET.pdfFact Sheet for Healthcare Patients:https://www.[employer]/Docum ents/Xpert%20Xpress%20SARS%20Cov-2/Fact%20Sheets/302-3801%39WFHE-BER-2%20PATIENT %20FACT%20SHEET.pdfBASI METABOLIC [id number] 04:46:49 Test Item Value Reference Range Interpretation Comments SODIUM (BEAKER) 141 meq/L 136-145 (test code = 381) POTASSIUM 3.8 meq/L 3.5-5.1 (BEAKER) (test code = 379) CHLORIDE (BEAKER) 106 meq/L 98-107 (test code = 382) CO2 (BEAKER) 25 meq/L 22-29 (test code = 355) BLOOD UREA 19 mg/dL 7-21 NITROGEN (BEAKER) (test code = 354) CREATININE 0.70 mg/dL 0.57-1.25 (BEAKER) (test code = 358) GLUCOSE RANDOM 106 mg/dL 70-105 H (BEAKER) (test code = 652) CALCIUM (BEAKER) 10.0 mg/dL 8.4-10.2 (test code = 697) EGFR (BEAKER) 121 Interpretatio n of eGFR (test code = mL/min/1.73 values Stage De scription 1092) sq m Result G1 Tyra l or high >=90 G2 Mildly decreased 60-89 G3a Mildl y to moderately 45-5 9 G3b Moderately to s everely 30-44 G4 Severl y decreased 15-29 G5 Kidney failure <15Reported eGF R is based on the CKD-EPI 2020 equation that d oes not use a race coefficientEsti mated GFR is not as accur ate as Creatinine Papi sandor in predicting glom erular filtration rate . Estimated GFR is not appl icable for dialysis patien ts Roll Icer ID - NELLY [id number] 04:46:49 Test Item Value Reference Range Interpretation Comments MAGNESIUM (BEAKER) (test code = 1.5 mg/dL 1.6-2.6 L 627) Roll Icer ID - NELLY [id number] 04:46:49 Test Item Value Reference Range Interpretation Comments PHOSPHORUS (BEAKER) (test code = 2.7 mg/dL 2.3-4.7 604) Roll Icer ID - NELLY MLACTIC ACID, [id number] 02:13:10 Test Item Value Reference Range Interpretation Comments LACTATE BLOOD VENOUS 3.10 mmol/L 0.50-2.20 H Specime n slightly (2) (BEAKER) (test hemolyzed code = 3387) Roll Icer ID - NELLY [id number] 22:23:53 Test Item Value Reference Range Interpretation Comments PARTIAL THROMBOPLASTIN TIME 40.1 seconds 22.5-36.0 H (BEAKER) (test code = 760) PROTHROMBIN TIME/[id number] 22:22:55 Test Item Value Reference Range Interpretation Comments PROTIME (BEAKER) 15.3 seconds 11.9-14.2 H (test code = 759) INR (BEAKER) (test 1.28 See_Comment [Automat ed message] code = 370) The system [employer] generated this result transmitted ref erence range: <=5.90. The reference range was not used to int erpret this result as normal/abnormal . RECOMMENDED COUMADIN/WARFARIN INR THERAPY RANGESSTANDARD DOSE: 2.0 - 3.0 Includes: PROPHYLAXIS for venous thrombosis, systemic embolization; TREATMENT for venous thrombosis and/or pulmonary embolus.HIGH RISK: Target INR is 2.5-3.5 for patients with mechanical heart valves.LACTIC ACID, [id number] 22:19:23 Test Item Value Reference Range Interpretation Comments LACTATE BLOOD VENOUS 4.02 mmol/L 0.50-2.20 HH Specime n slightly (2) (BEAKER) (test hemolyzed code = 2341) Roll Icer ID - BS(CELLAVISION MANUAL DIFF)2022-03-08 21:37:07 Test Item Value Reference Range Interpretation Comments NEUTROPHILS - REL 36 % (CELLAVISION)(BEAKER) (test code = 2816) LYMPHOCYTES - REL 7 % (CELLAVISION)(BEAKER) (test code = 2817) MONOCYTES - REL 5 % (CELLAVISION)(BEAKER) (test code = 2818) METAMYELOCYTES - REL 3 % 0-0 H (CELLAVISION)(BEAKER) (test code = 2821) MYELOCYTES - REL 1 % 0-0 H (CELLAVISION)(BEAKER) (test code = 2822) BANDS - REL (CELLAVISION)(BEAKER) 46 % 0-10 H (test code = 2826) ATYPICAL LYMPHOCYTES - REL 2 % 0-0 H (CELLAVISION)(BEAKER) (test code = 2829) NEUTROPHILS - ABS 2.38 K/ul 1.78-5.38 (CELLAVISION)(BEAKER) (test code = 2830) LYMPHOCYTES - ABS 0.46 K/ul 1.32-3.57 L (CELLAVISION)(BEAKER) (test code = 2831) MONOCYTES - ABS 0.33 K/uL 0.30-0.82 (CELLAVISION)(BEAKER) (test code = 2832) METAMYELOCYTES - ABS 0.20 K/uL 0.00-0.00 H (CELLAVISION)(BEAKER) (test code = 2836) MYELOCYTES-ABS 0.07 K/uL 0.00-0.00 H (CELLAVISION)(BEAKER) (test code = 2837) BANDS - ABS (CELLAVISION)(BEAKER) 3.04 K/uL 0.00-0.80 H (test code = 2840) ATYPICAL LYMPHOCYTES - ABS 0.13 K/uL 0.00-0.00 H (CELLAVISION)(BEAKER) (test code = 2858) TOTAL COUNTED (BEAKER) (test code = 100 1351) SMUDGE CELLS (BEAKER) (test code = Present 1371) GIANT PLATELETS (BEAKER) (test code Present = 313) ANISOCYTOSIS (BEAKER) (test code = 1+ few 961) PLATELET CONCENTRATION Decreased (CELLAVISION)(BEAKER) (test code = 3438) Roll Icer ID - [id number] ID - salma Metz comments: Slide comments:HIGH SENSITIVITY TROPONIN [id number] 21:23:44 Test Item Value Reference Range Interpretation Comments HIGH SENSITIVITY < pg/ml See_Comment [Automated message] TROPONIN I (test code = The system which [id number]) generated this result transmitted ref erence range: <=35. Th e reference range was not used to interpr et this result as normal/abnormal . Roll Icer ID - BSThe LACE ROLLER STAT High Sensitivity Troponin-I results should be used in conjunctionwith other diagnostic information such as ECG, clinical observations and information, and patient symptoms to aid in the diagnosis of SC.[id number] 21:16:47 Test Item Value Reference Range Interpretation Comments MAGNESIUM (BEAKER) 1.7 mg/dL 1.6-2.6 Specimen slightly (test code = 627) hemolyzed Roll Icer ID - BSBASIC METABOLIC [id number] 21:16:47 Test Item Value Reference Range Interpretation Comments SODIUM (BEAKER) 145 meq/L 136-145 (test code = 381) POTASSIUM 4.3 meq/L 3.5-5.1 Specimen slight ly (BEAKER) (test hemolyzed code = 379) CHLORIDE (BEAKER) 106 meq/L 98-107 (test code = 382) CO2 (BEAKER) 25 meq/L 22-29 (test code = 355) BLOOD UREA 21 mg/dL 7-21 NITROGEN (BEAKER) (test code = 354) CREATININE 0.98 mg/dL 0.57-1.25 Specimen slight ly (BEAKER) (test hemolyzed code = 358) GLUCOSE RANDOM 124 mg/dL 70-105 H (BEAKER) (test code = 652) CALCIUM (BEAKER) 11.0 mg/dL 8.4-10.2 H (test code = 697) EGFR (BEAKER) 103 Interpretatio n of eGFR (test code = mL/min/1.73 values Stage D escription 1092) sq m Result G1 Tyra l or high >=90 G2 Mildly decreased 60-89 G3a Mildl y to moderately 45-5 9 G3b Moderately to s everely 30-44 G4 Severl y decreased 15-29 G5 Kidney failure <15Reported eGF R is based on the CKD-EPI 2020 equation that d oes not use a race coefficientEsti mated GFR is not as accur ate as Creatinine Papi patten in predicting glom erular filtration rate . Estimated GFR is not appl icable for dialysis patien ts Roll Icer ID - BSCBC W/PLT COUNT & AUTO [id number] 20:56:46 Test Item Value Reference Range Interpretation Comments WHITE BLOOD CELL COUNT (BEAKER) 6.6 K/ L 3.5-10.5 (test code = 775) RED BLOOD CELL COUNT (BEAKER) 5.76 M/ L 4.63-6.08 (test code = 761) HEMOGLOBIN (BEAKER) (test code = 16.9 GM/DL 13.7-17.5 410) HEMATOCRIT (BEAKER) (test code = 52.0 % 40.1-51.0 H 411) MEAN CORPUSCULAR VOLUME (BEAKER) 90 fL 79-92 (test code = 753) MEAN CORPUSCULAR HEMOGLOBIN 29.3 pg 25.7-32.2 (BEAKER) (test code = 751) MEAN CORPUSCULAR HEMOGLOBIN CONC 32.5 GM/DL 32.3-36.5 (BEAKER) (test code = 752) RED CELL DISTRIBUTION WIDTH 14.3 % 11.6-14.4 (BEAKER) (test code = 412) PLATELET COUNT (BEAKER) (test 149 K/CU MM 150-450 L code = 756) MEAN PLATELET VOLUME (BEAKER) 11.1 fL 9.4-12.4 (test code = 754) NUCLEATED RED BLOOD CELLS 0 /100 WBC 0-0 (BEAKER) (test code = 413) RAD, CHEST, 1 VIEW, NON [id number] 20:45:00Reason for exam:->SHORTNESS OF BREATHReason for exam:->GENERALIZED WEAKNESS, NOT ASSOCIATED WITH EXTREMITIES [facility] 1985 Sex: MFINAL REPORT INDICATION: SHORTNESS OF BREATHGENERALIZED WEAKNESS, NOT ASSOCIATED WITH EXTREMITIES COMPARISON: None TECHNIQUE: Single frontal view of the chest. IMPRESSION: Lungs and pleura: There are bibasilar patchy airspace opacities concerning for multifocal pneumonia. No effusion.Heart and mediastinum: Normal heart size. Unremarkable mediastinal contours. Osseous structures: No acute abnormality. There is marked thoracolumbar leftward convex curvature. Other: None. Signed: Velvet Vargas Verified Date/Time: 03/08/2022 20:45:58 Electronically signed by: Tin BATISTA 03/08/2022 08:45 PMMR, BRAIN, [id number] 10:20:00Unlisted Reason for Exam - Click Yes and Enter Reason Below->YesUnlisted Reason for Exam->seizuresAnesthesia:- >GeneralDoes the patient have an implanted electronic device?->No [facility] : 1985 Sex: MFINAL REPORT MR, BRAIN, WITH \\T\\ WITHOUT CONTRAST INDICATION: Unlisted Reason for Examseizures Technique: MRI of the brain utilizing axial T1, T2, FLAIR, GRE, DWI, sagittal T1; and postgadolinium axial, sagittal, and coronal T1-weighted images. COMPARISON: None FINDINGS:Abnormal signal intensity and volume loss within the globus pallidus bilaterally and the left caudate, suggestive of prior toxic (or less likely metabolic an/or hypoxic) insult. Remote infarct of the left cerebellar hemisphere. No restricted diffusion to suggest recent ischemic insult. No abnormal susceptibility. Scattered T2/FLAIR hyperintense foci within the periventricular and subcortical white matter are nonspecific, however, statistically represent chronic microvascular ischemic changes. No hydrocephalus. Orbits are within normal limits. No obstructive paranasal sinus disease. Additional findings: None. IMPRESSION: 1.No acute intracranial findings.2.Abnormal signal intensity and volume loss within the globus pallidus bilaterally and the left caudate, suggestive of prior toxic (or less likely metabolic an/or hypoxic) insult.3.Remote infarct left cerebellar hemisphere. Signed: Justin Cramer MDReport Verified Date/Time: 11/25/2021 10:20:08 BASIC METABOLIC [id number] 13:32:56 Test Item Value Reference Range Interpretation Comments SODIUM (BEAKER) 142 meq/L 136-145 (test code = 381) POTASSIUM 4.1 meq/L 3.5-5.1 (BEAKER) (test code = 379) CHLORIDE (BEAKER) 104 meq/L 98-107 (test code = 382) CO2 (BEAKER) 29 meq/L 22-29 (test code = 355) BLOOD UREA 16 mg/dL 7-21 NITROGEN (BEAKER) (test code = 354) CREATININE 0.77 mg/dL 0.57-1.25 (BEAKER) (test code = 358) GLUCOSE RANDOM 92 mg/dL 70-105 (BEAKER) (test code = 652) CALCIUM (BEAKER) 9.8 mg/dL 8.4-10.2 (test code = 697) EGFR (BEAKER) 119 Interpretatio n of eGFR (test code = mL/min/1.73 values Stage De scription 1092) sq m Result G1 Tyra l or high >=90 G2 Mildly decreased 60-89 G3a Mildl y to moderately 45-5 9 G3b Moderately to s everely 30-44 G4 Severl y decreased 15-29 G5 Kidney failure <15Reported eGF R is based on the CKD-EPI 2020 equation that d oes not use a race coefficientEsti mated GFR is not as accur ate as Creatinine Papi sandor in predicting glom erular filtration rate . Estimated GFR is not appl icable for dialysis patien ts Roll Icer ID - NELLY MSARS-COV2/RT-PCR ([facility])2021-11-14 10:00:21 Test Item Value Reference Range Interpretation Comments SARS-COV2/RT-PCR (test Negative Not Detected, Negative, code = 6811770) See external report for linked test SARS-COV-2 [facility] (test code = 6460002) Negative result for this test determines that SARS-CoV-2 RNA was not present in the specimen above the Limit of Detection (LOD). However, Negative results do not preclude SARS-CoV-2 infection and should not be used as the sole basis for treatment or patient management decisions. Negative results must be combined with clinical observations, patient history, and epidemiological information. A false negative result may occur if a specimen is improperly collected, transported or handled. A false negative result should be considered if patient's recent exposures or clinical presentation indicate that COVID-19 (SARS-CoV-2) is likely and diagnostic tests for other causes of illness are negative. Re-testing should be considered in cases of suspected false negatives.The limit of detection for this assay is 800 copies/mL.This SARS CoV-2 test is a real-time RT-PCR test intended for the qualitative detection of nucleic acid from SARS-CoV-2 in a nasopharyngeal swab specimen collected from individuals suspected of COVID-19 by their healthcare provider.This test has not been Food and Drug Administration (FDA) cleared or approved. This is a modified version of an approved Emergency Use Authorization (EUA) and is in the process of review by the FDA. Once authorized by the FDA, the issued EUA will be effective until the declaration that circumstances exist justifying the authorization of the emergency use ofin vitro diagnostic tests for detection and/or diagnosis of COVID-19 is terminated under Section 564(b)(2) of the Act or the EUA is revoked under Section 564(g) of the Act.Fact Sheet for Healthcare Prov iders:https://www.[employer]/sites/default/files/product/documents/Fact_Sheet_HC _Qpdnacdou_Zviy_IOLD-VwB-7.pdfFact Sheet for Healthcare Patients:https://www.[employer]/sites/default/files/product/docume nts/Dlqa_Bxxdf_Iitnxcxs_Wejw_ECIB-OlP-6.pdfPerforming Laboratory:[facility], [place] [address]MOBKOYWZIHNVU METABOLIC [id number] 05:29:41 Test Item Value Reference Range Interpretation Comments TOTAL PROTEIN 7.3 gm/dL 6.0-8.3 (BEAKER) (test code = 770) ALBUMIN (BEAKER) 4.0 g/dL 3.5-5.0 (test code = 1145) ALKALINE 142 U/L 40-150 PHOSPHATASE (BEAKER) (test code = 346) BILIRUBIN TOTAL 0.5 mg/dL 0.2-1.2 (BEAKER) (test code = 377) SODIUM (BEAKER) 138 meq/L 136-145 (test code = 381) POTASSIUM (BEAKER) 4.2 meq/L 3.5-5.1 (test code = 379) CHLORIDE (BEAKER) 104 meq/L 98-107 (test code = 382) CO2 (BEAKER) (test 26 meq/L 22-29 code = 355) BLOOD UREA 16 mg/dL 7-21 NITROGEN (BEAKER) (test code = 354) CREATININE 0.76 mg/dL 0.57-1.25 (BEAKER) (test code = 358) GLUCOSE RANDOM 111 mg/dL 70-105 H (BEAKER) (test code = 652) CALCIUM (BEAKER) 9.6 mg/dL 8.4-10.2 (test code = 697) AST (SGOT) 31 U/L 5-34 (BEAKER) (test code = 353) ALT (SGPT) 67 U/L 6-55 H (BEAKER) (test code = 347) EGFR (BEAKER) 119 Interpretatio n of eGFR (test code = 1092) mL/min/1.[address] age Description sq m Result G1 Tyra l or high >=90 G2 Mildly decreased 60-89 G3a Mildl y to moderately 45-5 9 G3b Moderately to s everely 30-44 G4 Severl y decreased 15-29 G5 Kidney failure <15Reported eGF R is based on the CKD-EPI 2020 equation that d oes not use a race coefficientEsti mated GFR is not as accur ate as Creatinine Papi patten in predicting glom erular filtration rate . Estimated GFR is not appl icable for dialysis patien ts Roll Icer ID - PIAYA LCBC W/PLT COUNT & AUTO [id number] 04:35:32 Test Item Value Reference Range Interpretation Comments WHITE BLOOD CELL COUNT (BEAKER) 9.6 K/ L 3.5-10.5 (test code = 775) RED BLOOD CELL COUNT (BEAKER) 5.21 M/ L 4.63-6.08 (test code = 761) HEMOGLOBIN (BEAKER) (test code = 15.2 GM/DL 13.7-17.5 410) HEMATOCRIT (BEAKER) (test code = 45.2 % 40.1-51.0 411) MEAN CORPUSCULAR VOLUME (BEAKER) 86.8 fL 79.0-92.2 (test code = 753) MEAN CORPUSCULAR HEMOGLOBIN 29.2 pg 25.7-32.2 (BEAKER) (test code = 751) MEAN CORPUSCULAR HEMOGLOBIN CONC 33.6 GM/DL 32.3-36.5 (BEAKER) (test code = 752) RED CELL DISTRIBUTION WIDTH 11.8 % 11.6-14.4 (BEAKER) (test code = 412) PLATELET COUNT (BEAKER) (test 317 K/CU MM 150-450 code = 756) MEAN PLATELET VOLUME (BEAKER) 9.2 fL 9.4-12.4 L (test code = 754) NUCLEATED RED BLOOD CELLS 0 /100 WBC 0-0 (BEAKER) (test code = 413) NEUTROPHILS RELATIVE PERCENT 68 % (BEAKER) (test code = 429) LYMPHOCYTES RELATIVE PERCENT 24 % (BEAKER) (test code = 430) MONOCYTES RELATIVE PERCENT 7 % (BEAKER) (test code = 431) EOSINOPHILS RELATIVE PERCENT 0 % (BEAKER) (test code = 432) BASOPHILS RELATIVE PERCENT 0 % (BEAKER) (test code = 437) NEUTROPHILS ABSOLUTE COUNT 6.51 K/ L 1.78-5.38 H (BEAKER) (test code = 670) LYMPHOCYTES ABSOLUTE COUNT 2.30 K/ L 1.32-3.57 (BEAKER) (test code = 414) MONOCYTES ABSOLUTE COUNT (BEAKER) 0.63 K/ L 0.30-0.82 (test code = 415) EOSINOPHILS ABSOLUTE COUNT 0.04 K/ L 0.04-0.54 (BEAKER) (test code = 416) BASOPHILS ABSOLUTE COUNT (BEAKER) 0.04 K/ L 0.01-0.08 (test code = 417) IMMATURE GRANULOCYTES-RELATIVE 0 % 0-1 PERCENT (BEAKER) (test code = 2801) FL MODIFIED BARIUM [id number] 20:02:36HISTORY: ?Cerebral biopsy. Tracheostomy. TECHNIQUE: Swallowing function was evaluated with the patient sittingupright in chair, using video-assisted C-arm fluoroscopy, in the presenceof speech therapist. Swallowing function was evaluated using thin barium,thick barium, barium mixed with pudding, pieceof priyanka cracker. FINDINGS: Swallowing function appeared normal. Patient was able to formbolus of food, initiation of swallowing without any significant difficultyand the food material as well as barium flowed through the cervicalesophagus without any obstruction or aspiration. Transient penetration of barium was noted into the supraglottic portion ofthe larynx, on the surface of aryepiglottic fold without any aspirationbelow the vocal cords into the trachea. CONCLUSIONS: Transient penetration of barium noted in the supraglotticportion of the larynx without aspiration below the level of vocal cordsinto the trachea, otherwise normal dysphagiogram study. [facility], Radiant Results Inft User - 13:03 PM CDT HISTORY: Cerebral biopsy. Tracheostomy.TECHNIQUE: Swallowing function was evaluated with the patient sittingupright in chair, using video-assisted C-arm fluoroscopy, in the presenceof speech therapist. Swallowing function was evaluated using thin barium,thick barium, barium mixed with pudding, piece of priyanka cracker.FINDINGS: Swallowing function appeared normal. Patient was able to formbolus of food, initiation of swallowing without any significant difficultyand the food material as well as barium flowed through the cervicaleso phagus without any obstruction or aspiration.Transient penetration of barium was noted into the supraglottic portion ofthe larynx, on the surface of aryepiglottic fold without any aspirationbelow the vocal cords into the trachea.CONCLUSIONS: Transient penetration of barium noted in the supraglotticportion of the larynx without aspiration below the level of vocal cordsinto the trachea, otherwise normal dysphagiogram study.[facility] CenterURINALYSIS2021-03-14 04:09:46 Test Item Value Reference Range Interpretation Comments APPEARANCE (test code = Hazy Clear A 6762318940) COLOR (test code = Yellow Yellow 7584165940) PH (test code = 4.8-8.0 3053097471) SP GRAVITY (test code = 1.003-1.030 5719174685) GLU U QUAL (test code = Normal Normal 9700903576) BLOOD (test code = Negative Negative 1579346124) KETONES (test code = Negative Negative 4712011453) PROTEIN (test code = Negative Negative 2887-8) UROBILIN (test code = Normal Normal 7421897031) BILIRUBIN (test code = Negative Negative 5920605062) NITRITE (test code = Negative Negative 9569520956) LEUK MYRON (test code = Negative Negative 1317798902) RBC/HPF (test code = See_Comment [Autom ated message] 5756378447) The system [employer] generated this result transmitted ref erence range: 0 - 3 HP F. The reference range was not used to int erpret this result as normal/abnormal . WBC/HPF (test code = See_Comment [Autom ated message] 4281448842) The system [employer] generated this result transmitted ref erence range: 0 - 5 HP F. The reference range was not used to int erpret this result as normal/abnormal . BACTERIA (test code = Few Negative A 4282117975) Lab Interpretation (test Abnormal code = 08626-1) [facility] CenterPHENYTOIN2021-03-14 04:02:40 Test Item Value Reference Range Interpretation Comments PHENYTOIN (test code = 41.9 ug/mL 10.0-20.0 H 0196593349) CHRISTINA (test code = CHRISTINA) Toxic Range: ? 0-3 Months ? Greater than 14 ug/mL ? ? 3 Months - 150 Years ? ? Greater than 20 ug/mL Lab Interpretation (test Abnormal code = 99958-7) [facility] CenterMAGNESIUM2021-03-14 03:49:10 Test Item Value Reference Range Interpretation Comments MAGNESIUM (test code = 7624657603) 1.8 mg/dL 1.7-2.4 Lab Interpretation (test code = Normal 24088-3) [facility]. METABOLIC PANEL (07423)2020-06-19 03:48:50 Test Item Value Reference Range Interpretation Comments NA (test code = 132 mmol/L 135-145 L 4816419537) K (test code = 4.1 mmol/L 3.5-5.0 3478469948) CL (test code = 92 mmol/L 98-108 L 0313520992) CO2 TOTAL (test code = 32 mmol/L 23-31 H 0021755269) AGAP (test code = 2-16 7178283521) BUN (test code = 11 mg/dL 7-23 5039877239) GLUCOSE (test code = 111 mg/dL 70-110 H 0959981928) CREATININE (test code = 0.33 mg/dL 0.60-1.25 L 9914747340) TOTAL BILI (test code = 0.3 mg/dL 0.1-1.9 5291310326) CALCIUM (test code = 9.1 mg/dL 8.6-10.6 4343283818) T PROTEIN (test code = 6.3 g/dL 6.3-8.2 1069500133) ALBUMIN (test code = 3.8 g/dL 3.5-5.0 7289945954) ALK PHOS (test code = 109 U/L 34-122 8650062778) ALTv (test code = 34 U/L 5-50 1742-6) AST(SGOT) (test code = 25 U/L 13-40 4454359830) eGFR Calculation mL/min/1.73m2 (Non-) (test code = 1494959693) eGFR Calculation mL/min/1.73m2 () (test code = 1196550285) CHRISTINA (test code = CHRISTINA) Association of Glomerular Filtration Rate (GFR) and Staging of Kidney Disease* + --+ --+ ------+| GFR (mL/min/1.73 m2) ?| With Kidney Damage ?| ?Without Kidney Damage+ --------+ --------+ +| ?>90 ?| ?Stage one ?| ? Normal ?+ ---+ ---+ -------+| ?60-89 ?| ?Stage two ?| ? Decreased GFR ? + --+ --+ ------+| ?30-59 ?| ?Stage three ?| ? Stage three ? + --+ --+ ------+| ?15-29 ?| ?Stage four ? | ? Stage four ?+ ---+ ---+ -------+| ?<15 (or dialysis) ? ?| ?Stage five ? | ? Stage five ?+ ---+ ---+ -------+ *Each stage assumes the associated GFR level has been in effect for at least three months. ?Stages 1 to 5, with or without kidney disease, indicate chronic kidney disease. Notes: Determination of stages one and two (with eGFR >59mL/min/1.73 m2) requires estimation of kidney damage for at least three months as defined by structural or functional abnormalities of the kidney, manifested by either:Pathological abnormalities or Markers of kidney damage (including abnormalities in the composition of the blood or urine or abnormalities in imaging tests). Lab Interpretation Abnormal (test code = 84514-7) [facility] CenterLIPASE2021-03-14 03:48:30 Test Item Value Reference Range Interpretation Comments LIPASE (test code = 4483456135) 64 U/L 0-220 Lab Interpretation (test code = Normal 59727-4) [facility] WITH [id number] 03:09:49 Test Item Value Reference Range Interpretation Comments WBC (test code = See_Comment [Automated 7192-2) message] The sy stem which generated this result transmitted reference range : 4.20 - 10.70 10*3/?L. The reference range was not used to interpret this result as normal/abnormal . RBC (test code = See_Comment [Automated 633-5) message] The sy stem which generated this result transmitted reference range : 4.26 - 5.52 10*6/?L. The reference range was not used to interpret this result as normal/abnormal . HGB (test code = 14.0 g/dL 12.2-16.4 718-7) HCT (test code = 41.2 % 38.4-49.3 4544-3) MCV (test code = 88.2 fL 81.7-95.6 787-2) MCH (test code = 30.0 pg 26.1-32.7 785-6) MCHC (test code = 34.0 g/dL 31.2-35.0 786-4) RDW-SD (test code = 38.6 fL 38.5-51.6 48609-9) RDW-CV (test code = 12.0 % 12.1-15.4 L 788-0) PLT (test code = See_Comment H [Automated 777-3) message] The sy stem which generated this result transmitted reference range : 150 - 328 10*3/ ?L. The reference r subhash was not used to interpret this result as normal/abnormal . MPV (test code = 8.8 fL 9.8-13.0 L 36286-2) NRBC/100 WBC (test See_Comment [Automat ed code = 7948401077) message] The system which generated this result transmitted reference range : 0.0 - 10.0 /100 WBCs. The refer ence range was not u sed to interpret th is result as normal/abnormal . NRBC x10^3 (test code <0.01 See_Comment [Auto mated = 7354721916) message] The s ystem which generated this result transmitted reference range : 10*3/?L. The reference range was not used to interpret this result as normal/abnormal . GRAN MAT (NEUT) % 67.1 % (test code = 770-8) IMM GRAN % (test code 0.70 % = 3037926163) LYMPH % (test code = 19.2 % 736-9) MONO % (test code = 10.2 % 5905-5) EOS % (test code = 1.8 % 713-8) BASO % (test code = 1.0 % 706-2) GRAN MAT x10^3(ANC) 5.62 10*3/uL 1.99-6.95 (test code = 9747868901) IMM GRAN x10^3 (test 0.06 10*3/uL 0.00-0.06 code = 8520938165) LYMPH x10^3 (test code 1.61 10*3/uL 1.09-3.23 = 731-0) MONO x10^3 (test code 0.85 10*3/uL 0.36-1.02 = 742-7) EOS x10^3 (test code = 0.15 10*3/uL 0.06-0.53 711-2) BASO x10^3 (test code 0.08 10*3/uL 0.01-0.09 = 704-7) Lab Interpretation Abnormal (test code = 87467-0) [facility] CenterLactic Acid Whole [id number] 02:52:00 Test Item Value Reference Range Interpretation Comments LACTIC ACID (test code = 2.17 mmol/L 0.50-2.20 6596098067) Lab Interpretation (test code = Normal 84217-6) [facility] CenterCT ABDOMEN PELVIS W [id number] 19:20:19CT Abdomen and Pelvis with intravenous contrast. CLINICAL HISTORY: Abdominal distention. DOSE: Up-to-date CT equipment and radiation dose reduction techniques wereemployed. CTDIvol: 13.57 mGy. DLP: 720mGy-cm. TECHNIQUE : Contiguous axial imaging from the level of the lung basesthrough the pubic symphysis were performed after the uncomplicatedadministration of Omnipaque contrast material. ?Coronal and sagittalreconstructions were obtained. Auto mA and/or iterative reconstruction wereused to reduce radiation dose. FINDINGS: ? Lower lungs: Bibasilar congestion/atelectatic changes. Superimposedpneumonia in both lower lungs, more in the right lower lung cannot be ruledout by this examination. No pleural effusion or pericardial effusion. Nodefinite indication of a hiatal hernia. Liver, Gallbladder andSpleen: No focal lesions detected in the liver or inthe spleen. Prominent left lobe of the liver noted. 6 mm size 2 gallstonesare seen without any evidence of acute cholecystitis. Peritoneum: ?No free air or free fluid. No lymphadenopathy. Pancreas and Adrenals: Mild diffuse atrophy of the pancreas noted. Adrenalglands are normal. Kidneys and Ureters: ?No visible calculi in the renal collecting systems. No hydroureter or hydronephrosis. No enhancing kidney lesions detected. Vessels: Unremarkable. Hep atic/portal venous systems appear patent. Renalveins are patent. Retroperitoneum: No abnormal fluid or lymphadenopathy. Bowel: Constipation with probable fecal impaction. Thickened walsh noted ofthe sigmoid and rectum without any definite evidence of stercoral colitis. Normal appendix. Normal small bowel gas pattern. PEG tube appears to be in good position within the gastric chamber. Bladder and Reproductive Organs: Thickened bladder wall is noted with anair bubble in its lumen. Prostate gland appears very small. Bones: Thoracolumbar scoliosis and exaggerated lumbar lordosis. Mildbilateral hip joint degenerative arthritis. Soft tissues: Small air bubbles are seen in the right anterior abdominalwall, likely sites of subcutaneous injection of medications. CONCLUSION: 1. No acute intra-abdominal or pelvic abnormalities detected.2. 2 small gallstones is suspected without any signs of acutecholecystitis.3. Constipation, with possible rectal fecal impaction and thickened rectaland lower sigmoid colonwalls.4. Thickened walsh of the urinary bladder and an air bubble in its lumen.The air bubble is of uncertain clinical significance. Thickened walsh couldbe due to incomplete luminal distention and/or less likely secondary tocystitis. Please correlate.5. Bibasilar congestion/atelectatic changes. It is difficult to exclude anysuperimposed pneumonia particularly in the right lung base. No pleuraleffusion. [facility], Radiant Results Inft User - 06/09/2020 1:21 PM CSTCT Abdomen and Pelvis with intravenous contrast.CLINICAL HISTORY: Abdominal distention.DOSE: Up-to-date CT equipment and radiation dose reduction techniques wereemployed. CTDIvol: 13.57 mGy. DLP: 720 mGy-cm.TECHNIQUE : Contiguous axial imagingfrom the level of the lung basesthrough the pubic symphysis were performed after the uncomplicatedadministration of Omnipaque contrast material. Coronal and sagittalreconstructions were obtained. Auto mA and/or iterative reconstruction wereused to reduce radiation dose.FINDINGS: Lower lungs: Bibasilarcongestion/atelectatic changes. Superimposedpneumonia in both lower lungs, more in the right lower lung cannot be ruledout by this examination. No pleural effusion or pericardial effusion. Nodefinite indication of a hiatal hernia.Liver, Gallbladder and Spleen: No focal lesions detected in the liver or inthe spleen. Prominent left lobe of the liver noted. 6 mm size 2 gallstonesare seen without any evidence of acute cholecystitis.Peritoneum: No free air or free fluid. No lymphadenopathy.Pancreas and Adrenals: Mild diffuse atrophy of the pancreas noted. Adrenalglands are normal.Kidneys and Ureters: Novisible calculi in the renal collecting systems. No hydroureter or hydronephrosis. No enhancing kidney lesions detected. Vessels: Unremarkable. Hepatic/portal venous systems appear patent. Renalveins are patent.Retroperitoneum: No abnormal fluid or lymphadenopathy.Bowel: Constipation with probable fecal impaction. Thickened walsh noted ofthe sigmoid and rectum without any definite evidence of stercoral colitis.Normal appendix. Normal small bowel gas pattern.PEG tube appears to be in good position within the gastric chamber.Bladder and Reproductive Organs: Thickened bladder wall is noted with anair bubble in its lumen. Prostate gland appears very small.Bones: Thoracolumbar scoliosis and exaggeratedlumbar lordosis. Mildbilateral hip joint degenerative arthritis.Soft tissues: Small air bubbles are seen in the right anterior abdominalwall, likely sites of subcutaneous injection of medications.CONCLUSION:1. No acute intra-abdominal or pelvic abnormalities detected.2. 2 small gallstones is suspectedwithout any signs of acutecholecystitis.3. Constipation, with possible rectal fecal impaction and thickened rectaland lower sigmoid colon walsh.4. Thickened walsh of the urinary bladder and an air bubble in its lumen.The air bubble is of uncertain clinical significance. Thickened walsh couldbe due to incomplete luminal distention and/or less likely secondary tocystitis. Please correlate.5. Bibasilar congestion/atelectatic changes. It is difficult to exclude anysuperimposed pneumonia particularly in the right lung base. No pleuraleffusion.[facility] 19:16:00 Test Item Value Reference Range Interpretation Comments APPEARANCE (test code = Hazy Clear A 8707370221) COLOR (test code = Yellow Yellow 4579450729) PH (test code = 4.8-8.0 7966791099) SP GRAVITY (test code = 1.003-1.030 7765183285) GLU U QUAL (test code = Normal Normal 9529208840) BLOOD (test code = Negative Negative 8182626833) KETONES (test code = Negative Negative 6804313048) PROTEIN (test code = Negative Negative 2887-8) UROBILIN (test code = Normal Normal 6472326444) BILIRUBIN (test code = Negative Negative 9262449716) NITRITE (test code = Negative Negative 2018628119) LEUK MYRON (test code = Negative Negative 1247061141) RBC/HPF (test code = See_Comment [Autom ated message] 5201457940) The system [employer] generated this result transmitted ref erence range: 0 - 3 HP F. The reference range was not used to int erpret this result as normal/abnormal . WBC/HPF (test code = See_Comment [Autom ated message] 4453408059) The system [employer] generated this result transmitted ref erence range: 0 - 5 HP F. The reference range was not used to int erpret this result as normal/abnormal . BACTERIA (test code = Negative Negative 8332003701) MUCOUS (test code = Slight Negative LPF A 9839784224) Lab Interpretation (test Abnormal code = 67298-7) [facility] (NA, K, CL, CO2, GLUCOSE, BUN, CREATININE, CA)2020-06-09 18:15:00 Test Item Value Reference Range Interpretation Comments NA (test code = 134 mmol/L 135-145 L 4288980157) K (test code = 4.1 mmol/L 3.5-5 1263103258) CL (test code = 96 mmol/L 98-108 L 2056454352) CO2 TOTAL (test code = 30 mmol/L 23-31 3215898159) AGAP (test code = 2-16 8658468477) BUN (test code = 11 mg/dL 7-23 1947312475) GLUCOSE (test code = 144 mg/dL 70-110 H 0467403490) CREATININE (test code = 0.37 mg/dL 0.6-1.25 L 3425649805) CALCIUM (test code = 9.6 mg/dL 8.6-10.6 3168331415) eGFR Calculation mL/min/1.73m2 (Non-) (test code = 8497299385) eGFR Calculation mL/min/1.73m2 () (test code = 9378411187) CHRISTINA (test code = CHRISTINA) Association of Glomerular Filtration Rate (GFR) and Staging of Kidney Disease* + --+ --+ ------+| GFR (mL/min/1.73 m2) ?| With Kidney Damage ?| ?Without Kidney Damage+ --------+ --------+ +| ?>90 ?| ?Stage one ?| ? Normal ?+ ---+ ---+ -------+| ?60-89 ?| ?Stage two ?| ? Decreased GFR ? + --+ --+ ------+| ?30-59 ?| ?Stage three ?| ? Stage three ? + --+ --+ ------+| ?15-29 ?| ?Stage four ? | ? Stage four ?+ ---+ ---+ -------+| ?<15 (or dialysis) ? ?| ?Stage five ? | ? Stage five ?+ ---+ ---+ -------+ *Each stage assumes the associated GFR level has been in effect for at least three months. ?Stages 1 to 5, with or without kidney disease, indicate chronic kidney disease. Notes: Determination of stages one and two (with eGFR >59mL/min/1.73 m2) requires estimation of kidney damage for at least three months as defined by structural or functional abnormalities of the kidney, manifested by either:Pathological abnormalities or Markers of kidney damage (including abnormalities in the composition of the blood or urine or abnormalities in imaging tests). Lab Interpretation Abnormal (test code = 14695-2) [facility] WITH [id number] 18:00:00 Test Item Value Reference Range Interpretation Comments WBC (test code = See_Comment [Automated 3821-2) message] The sy stem which generated this result transmitted reference range : 4.20 - 10.70 10*3/?L. The reference range was not used to interpret this result as normal/abnormal . RBC (test code = See_Comment L [Automated 759-8) message] The sy stem which generated this result transmitted reference range : 4.26 - 5.52 10*6/?L. The reference range was not used to interpret this result as normal/abnormal . HGB (test code = 12.0 g/dL 12.2-16.4 L 718-7) HCT (test code = 36.1 % 38.4-49.3 L 4544-3) MCV (test code = 90.7 fL 81.7-95.6 787-2) MCH (test code = 30.2 pg 26.1-32.7 785-6) MCHC (test code = 33.2 g/dL 31.2-35 786-4) RDW-SD (test code = 42.3 fL 38.5-51.6 63876-2) RDW-CV (test code = 12.8 % 12.1-15.4 788-0) PLT (test code = See_Comment H [Automated 777-3) message] The sy stem which generated this result transmitted reference range : 150 - 328 10*3/ ?L. The reference r subhash was not used to interpret this result as normal/abnormal . MPV (test code = 8.5 fL 9.8-13 L 43382-7) NRBC/100 WBC (test See_Comment [Automat ed code = 7548209256) message] The system which generated this result transmitted reference range : 0.0 - 10.0 /100 WBCs. The refer ence range was not u sed to interpret th is result as normal/abnormal . NRBC x10^3 (test code <0.01 See_Comment [Auto mated = 1442445182) message] The s ystem which generated this result transmitted reference range : 10*3/?L. The reference range was not used to interpret this result as normal/abnormal . GRAN MAT (NEUT) % 78.9 % (test code = 770-8) IMM GRAN % (test code 0.90 % = 4629367016) LYMPH % (test code = 12.9 % 736-9) MONO % (test code = 6.2 % 5905-5) EOS % (test code = 0.3 % 713-8) BASO % (test code = 0.8 % 706-2) GRAN MAT x10^3(ANC) 8.09 10*3/uL 1.99-6.95 H (test code = 4673368176) IMM GRAN x10^3 (test 0.09 10*3/uL 0-0.06 H code = 7640183437) LYMPH x10^3 (test code 1.32 10*3/uL 1.09-3.23 = 731-0) MONO x10^3 (test code 0.64 10*3/uL 0.36-1.02 = 742-7) EOS x10^3 (test code = 0.03 10*3/uL 0.06-0.53 L 711-2) BASO x10^3 (test code 0.08 10*3/uL 0.01-0.09 = 704-7) Lab Interpretation Abnormal (test code = 32817-8) [facility] LAB USE [id number] 19:40:00 Test Item Value Reference Range Interpretation Comments GLUCOMETER (test code = 125 mg/dL 70-100 H Mete r ID: GMG) [id number] tor: 4496 ZOE LOPEZ GLUCOMETER GLUCOSE- LAB USE [id number] 15:42:00 Test Item Value Reference Range Interpretation Comments GLUCOMETER (test code = 128 mg/dL 70-100 H Mete r ID: GMG) [id number] tor: 39721 MARVIA CR OSWELL GLUCOMETER GLUCOSE- LAB USE [id number] 11:24:00 Test Item Value Reference Range Interpretation Comments GLUCOMETER (test code = 135 mg/dL 70-100 H Mete r ID: GMG) [id number] tor: 00779 MARVIA CR OSWELL GLUCOMETER GLUCOSE- LAB USE [id number] 07:14:00 Test Item Value Reference Range Interpretation Comments GLUCOMETER (test code 130 mg/dL 70-100 H CLEANE D METERMeter ID: = GMG) [id number] tor: 4496 ZOE LOPEZ PRO TIME AND [id number] 05:39:00 Test Item Value Reference Range Interpretation Comments PT (test code = 12.2 s 9.8-13.6 TT) INR (test code = 1.1 INR) INRH (test code = SUGGESTED THERAPEUTIC INRH) RANGE FOR INR: 2.5 - 3.5 For Patients with Prosthetic Valves or Patients with recurrent Thromboembolic Events 2.0 - 3.0 For Most Other Applications PTT (test code = 32.4 s 20.2-38.0 PTT) PTTH (test code = To monitor the PTTH) effectiveness of heparin, we offer the Anti-Xa (Heparin Assay). It can be used for either unfractionated or LMW Heparin. Order Code is ANTI-XA COMPREHENSIVE METABOLIC [id number] 05:33:00 Test Item Value Reference Range Interpretation Comments GLUCOSE (test code 123 mg/dL 75-100 H = 06D) SODIUM (test code 136 mmol/L 136-145 = 01A) POTASSIUM (test 3.6 mmol/L 3.6-5.1 code = 01B) CHLORIDE (test 101 mmol/L 98-107 code = 04A) CO2 (test code = 28 mmol/L 22-32 02A) ANION GAP (test 10.6 mmol/L code = ANG) BUN (test code = 15 mg/dL 7-18 05D) CREATININE (test 0.4 mg/dL 0.7-1.3 L code = 03E) GFR (test code = 157 See_Comment [Automated GFR) mL/min/1.73m\\S\\2 message] Th e system which generated this result transmit claudio reference range : >=90. The reference range was not used to interpret this result as normal/abnormal . GFR 182 See_Comment [Automated SALVADOREAN (test mL/min/1.73m\\S\\2 message] The code = GFRAA) system which generated this result transmit claudio reference range : >=90. The reference range was not used to interpret this result as normal/abnormal . EGFR (test code = eGFR BY EGFR) CKD-EPI CALCULATION IS NOT RECOMMENDED FOR PATIENTS UNDER 18 YEARS OF AGE. BUN/CREA (test 40 12-20 H code = BCR) CALCIUM (test code 9.0 mg/dL 8.3-9.5 = 09D) BILI TOTAL (test 0.4 mg/dL 0.2-1.0 code = 11A) PROTEIN (test code 6.5 g/dL 6.4-8.2 = 07D) ALBUMIN (test code 2.6 g/dL 3.5-4.8 L = 08D) GLOBULIN (test 3.9 g/dL 1.5-3.8 H code = GLB) ALB/GLOB (test 0.7 1.0-2.6 L code = AGRR) ALK PHOS (test 90 IU/L 42-121 code = 35A) AST (test code = 25 IU/L See_Comment [Automated 30A) message] The system which generated this result transmit claudio reference range : <=42. The reference range was not used to interpret this result as normal/abnormal . ALT (test code = 53 IU/L See_Comment [Automated 31A) message] The system which generated this result transmit claudio reference range : <=78. The reference range was not used to interpret this result as normal/abnormal . CBC (INCLUDES AUTOMATED DIFFERENTIAL)2020-06-07 05:00:00 Test Item Value Reference Range Interpretation Comments WBC (test code = WBC) 7.4 10\\S\\3/uL 4.5-11.0 RBC (test code = RBC) 3.77 10\\S\\6/uL 4.30-5.70 L HGB (test code = HBG) 11.5 g/dL 14.0-18.0 L HCT (test code = HCT) 34.9 % 35.0-46.0 L MCV (test code = MCV) 92.6 fL 80.0-94.0 MCH (test code = MCH) 30.5 pg 27.0-31.0 MCHC (test code = MCHC) 33.0 g/dL 32.0-36.0 RDW (test code = RDW) 13.2 % 11.5-14.5 PLT (test code = PLT) 506 10\\S\\3/uL 130-400 H MPV (test code = MPV) 8.8 fL 9.4-12.4 L NEUTROP # (test code = NE#) 4.3 10\\S\\3/uL 2.0-8.0 LYMPH # (test code = LY#) 2.0 10\\S\\3/uL 1.2-4.0 MONOCYTE # (test code = MO#) 0.8 10\\S\\3/uL 0.0-1.1 EOSINOPH # (test code = EO#) 0.2 10\\S\\3/uL 0.0-0.7 BASOPHIL # (test code = BA#) 0.1 10\\S\\3/uL 0.0-0.3 IG # (test code = IG#) 0.08 10\\S\\3/uL 0.00-0.06 H NRBC # (test code = NRBC#) 0.00 10\\S\\3/uL 0.00-0.01 NEUTROPH % (test code = NE%) 57.8 % 35.0-73.0 LYMPH % (test code = LY%) 26.5 % 20.0-55.0 MONO % (test code = MO%) 11.3 % 2.5-10.0 H EOSINOPH % (test code = EO%) 2.2 % 0.0-5.0 BASOPHIL % (test code = BA%) 1.1 % 0.0-2.0 IG % (test code = IG%) 1.1 % 0.0-0.8 H NRBC% (test code = NRBC%) 0.0 % 0.0-0.2 MANDIFF (test code = MDIFF) NO NO RBC MORPH (test code = RBCMOR) NORMAL GLUCOMETER GLUCOSE- LAB USE [id number] 00:55:00 Test Item Value Reference Range Interpretation Comments GLUCOMETER (test code = 121 mg/dL 70-100 H Mete r ID: GMG) [id number] tor: 4496 ZOE E. LOPEZ GLUCOMETER GLUCOSE- LAB USE [id number] 21:17:00 Test Item Value Reference Range Interpretation Comments GLUCOMETER (test code = 115 mg/dL 70-100 H Mete r ID: GMG) [id number] tor: 4496 ZEO Carey. LOPEZ GLUCOMETER GLUCOSE- LAB USE [id number] 16:46:00 Test Item Value Reference Range Interpretation Comments GLUCOMETER (test code = 134 mg/dL 70-100 H Mete r ID: GMG) [id number] tor: 9358 KYE MARRUFOMAN GLUCOMETER GLUCOSE- LAB USE [id number] 12:37:00 Test Item Value Reference Range Interpretation Comments GLUCOMETER (test code = 116 mg/dL 70-100 H Mete r ID: GMG) [id number] tor: 9174 MATT TAVERA ILA COMPREHENSIVE METABOLIC [id number] 06:20:00 Test Item Value Reference Range Interpretation Comments GLUCOSE (test code 125 mg/dL 75-100 H = 06D) SODIUM (test code 138 mmol/L 136-145 = 01A) POTASSIUM (test 3.3 mmol/L 3.6-5.1 L code = 01B) CHLORIDE (test 101 mmol/L 98-107 code = 04A) CO2 (test code = 29 mmol/L 22-32 02A) ANION GAP (test 11.3 mmol/L code = ANG) BUN (test code = 13 mg/dL 7-18 05D) CREATININE (test 0.4 mg/dL 0.7-1.3 L code = 03E) GFR (test code = 152 See_Comment [Automated GFR) mL/min/1.73m\\S\\2 message] Th e system which generated this result transmit claudio reference range : >=90. The reference range was not used to interpret this result as normal/abnormal . GFR 177 See_Comment [Automated SALVADOREAN (test mL/min/1.73m\\S\\2 message] The code = GFRAA) system which generated this result transmit claudio reference range : >=90. The reference range was not used to interpret this result as normal/abnormal . EGFR (test code = eGFR BY EGFR) CKD-EPI CALCULATION IS NOT RECOMMENDED FOR PATIENTS UNDER 18 YEARS OF AGE. BUN/CREA (test 32 12-20 H code = BCR) CALCIUM (test code 9.2 mg/dL 8.3-9.5 = 09D) BILI TOTAL (test 0.4 mg/dL 0.2-1.0 code = 11A) PROTEIN (test code 6.7 g/dL 6.4-8.2 = 07D) ALBUMIN (test code 2.6 g/dL 3.5-4.8 L = 08D) GLOBULIN (test 4.1 g/dL 1.5-3.8 H code = GLB) ALB/GLOB (test 0.6 1.0-2.6 L code = AGRR) ALK PHOS (test 84 IU/L 42-121 code = 35A) AST (test code = 21 IU/L See_Comment [Automated 30A) message] The system which generated this result transmit claudio reference range : <=42. The reference range was not used to interpret this result as normal/abnormal . ALT (test code = 49 IU/L See_Comment [Automated 31A) message] The system which generated this result transmit claudio reference range : <=78. The reference range was not used to interpret this result as normal/abnormal . CBC (INCLUDES AUTOMATED DIFFERENTIAL)2020-06-06 06:15:00 Test Item Value Reference Range Interpretation Comments WBC (test code = WBC) 7.3 10\\S\\3/uL 4.5-11.0 RBC (test code = RBC) 3.66 10\\S\\6/uL 4.30-5.70 L HGB (test code = HBG) 11.0 g/dL 14.0-18.0 L HCT (test code = HCT) 34.6 % 35.0-46.0 L MCV (test code = MCV) 94.5 fL 80.0-94.0 H MCH (test code = MCH) 30.1 pg 27.0-31.0 MCHC (test code = MCHC) 31.8 g/dL 32.0-36.0 L RDW (test code = RDW) 13.2 % 11.5-14.5 PLT (test code = PLT) 514 10\\S\\3/uL 130-400 H MPV (test code = MPV) 9.3 fL 9.4-12.4 L NEUTROP # (test code = NE#) 3.9 10\\S\\3/uL 2.0-8.0 LYMPH # (test code = LY#) 2.3 10\\S\\3/uL 1.2-4.0 MONOCYTE # (test code = MO#) 0.8 10\\S\\3/uL 0.0-1.1 EOSINOPH # (test code = EO#) 0.1 10\\S\\3/uL 0.0-0.7 BASOPHIL # (test code = BA#) 0.1 10\\S\\3/uL 0.0-0.3 IG # (test code = IG#) 0.07 10\\S\\3/uL 0.00-0.06 H NRBC # (test code = NRBC#) 0.00 10\\S\\3/uL 0.00-0.01 NEUTROPH % (test code = NE%) 53.4 % 35.0-73.0 LYMPH % (test code = LY%) 31.5 % 20.0-55.0 MONO % (test code = MO%) 11.4 % 2.5-10.0 H EOSINOPH % (test code = EO%) 1.9 % 0.0-5.0 BASOPHIL % (test code = BA%) 0.8 % 0.0-2.0 IG % (test code = IG%) 1.0 % 0.0-0.8 H NRBC% (test code = NRBC%) 0.0 % 0.0-0.2 MANDIFF (test code = MDIFF) NO NO RBC MORPH (test code = RBCMOR) NORMAL GLUCOMETER GLUCOSE- LAB USE [id number] 04:13:00 Test Item Value Reference Range Interpretation Comments GLUCOMETER (test code 130 mg/dL 70-100 H CLEANE D METERMeter ID: = GMG) [id number] tor: 59191 ANGI T AYLOR GLUCOMETER GLUCOSE- LAB USE [id number] 23:31:00 Test Item Value Reference Range Interpretation Comments GLUCOMETER (test code 112 mg/dL 70-100 H CLEANE D METERMeter ID: = GMG) [id number] tor: 91144 ANGI T AYLOR GLUCOMETER GLUCOSE- LAB USE [id number] 19:31:00 Test Item Value Reference Range Interpretation Comments GLUCOMETER (test code 125 mg/dL 70-100 H CLEANE D METERMeter ID: = GMG) [id number] tor: 60796 ANGI T AYLOR GLUCOMETER GLUCOSE- LAB USE [id number] 15:17:00 Test Item Value Reference Range Interpretation Comments GLUCOMETER (test code = 127 mg/dL 70-100 H Mete r ID: GMG) [id number] tor: 72908 AZAEL S CHMITZ GLUCOMETER GLUCOSE- LAB USE [id number] 11:29:00 Test Item Value Reference Range Interpretation Comments GLUCOMETER (test code = 146 mg/dL 70-100 H Mete r ID: GMG) [id number] tor: 30594 AZAEL S CHMITZ CBC (INCLUDES AUTOMATED DIFFERENTIAL)2020-06-05 06:48:00 Test Item Value Reference Range Interpretation Comments WBC (test code = WBC) 9.9 10\\S\\3/uL 4.5-11.0 RBC (test code = RBC) 3.71 10\\S\\6/uL 4.30-5.70 L HGB (test code = HBG) 11.2 g/dL 14.0-18.0 L HCT (test code = HCT) 34.8 % 35.0-46.0 L MCV (test code = MCV) 93.8 fL 80.0-94.0 MCH (test code = MCH) 30.2 pg 27.0-31.0 MCHC (test code = MCHC) 32.2 g/dL 32.0-36.0 RDW (test code = RDW) 13.5 % 11.5-14.5 PLT (test code = PLT) 467 10\\S\\3/uL 130-400 H MPV (test code = MPV) 9.2 fL 9.4-12.4 L NEUTROP # (test code = NE#) 6.7 10\\S\\3/uL 2.0-8.0 LYMPH # (test code = LY#) 1.9 10\\S\\3/uL 1.2-4.0 MONOCYTE # (test code = MO#) 1.0 10\\S\\3/uL 0.0-1.1 EOSINOPH # (test code = EO#) 0.2 10\\S\\3/uL 0.0-0.7 BASOPHIL # (test code = BA#) 0.1 10\\S\\3/uL 0.0-0.3 IG # (test code = IG#) 0.07 10\\S\\3/uL 0.00-0.06 H NRBC # (test code = NRBC#) 0.00 10\\S\\3/uL 0.00-0.01 NEUTROPH % (test code = NE%) 67.9 % 35.0-73.0 LYMPH % (test code = LY%) 18.9 % 20.0-55.0 L MONO % (test code = MO%) 10.3 % 2.5-10.0 H EOSINOPH % (test code = EO%) 1.5 % 0.0-5.0 BASOPHIL % (test code = BA%) 0.7 % 0.0-2.0 IG % (test code = IG%) 0.7 % 0.0-0.8 NRBC% (test code = NRBC%) 0.0 % 0.0-0.2 MANDIFF (test code = MDIFF) NO NO RBC MORPH (test code = RBCMOR) NORMAL PRO TIME AND [id number] 06:47:00 Test Item Value Reference Range Interpretation Comments PT (test code = 11.6 s 9.8-13.6 TT) INR (test code = 1.0 INR) INRH (test code = SUGGESTED THERAPEUTIC INRH) RANGE FOR INR: 2.5 - 3.5 For Patients with Prosthetic Valves or Patients with recurrent Thromboembolic Events 2.0 - 3.0 For Most Other Applications PTT (test code = 29.3 s 20.2-38.0 PTT) PTTH (test code = To monitor the PTTH) effectiveness of heparin, we offer the Anti-Xa (Heparin Assay). It can be used for either unfractionated or LMW Heparin. Order Code is ANTI-XA COMPREHENSIVE METABOLIC [id number] 06:42:00 Test Item Value Reference Range Interpretation Comments GLUCOSE (test code 129 mg/dL 75-100 H = 06D) SODIUM (test code 136 mmol/L 136-145 = 01A) POTASSIUM (test 3.8 mmol/L 3.6-5.1 code = 01B) CHLORIDE (test 102 mmol/L 98-107 code = 04A) CO2 (test code = 29 mmol/L 22-32 02A) ANION GAP (test 8.8 mmol/L code = ANG) BUN (test code = 14 mg/dL 7-18 05D) CREATININE (test 0.4 mg/dL 0.7-1.3 L code = 03E) GFR (test code = 157 See_Comment [Automated GFR) mL/min/1.73m\\S\\2 message] e system which generated this result transmit claudio reference range : >=90. The reference range was not used to interpret this result as normal/abnormal . GFR 183 See_Comment [Automated SALVADOREAN (test mL/min/1.73m\\S\\2 message] The code = GFRAA) system which generated this result transmit claudio reference range : >=90. The reference range was not used to interpret this result as normal/abnormal . EGFR (test code = eGFR BY EGFR) CKD-EPI CALCULATION IS NOT RECOMMENDED FOR PATIENTS UNDER 18 YEARS OF AGE. BUN/CREA (test 37 12-20 H code = BCR) CALCIUM (test code 9.4 mg/dL 8.3-9.5 = 09D) BILI TOTAL (test 0.3 mg/dL 0.2-1.0 code = 11A) PROTEIN (test code 6.7 g/dL 6.4-8.2 = 07D) ALBUMIN (test code 2.6 g/dL 3.5-4.8 L = 08D) GLOBULIN (test 4.1 g/dL 1.5-3.8 H code = GLB) ALB/GLOB (test 0.6 1.0-2.6 L code = AGRR) ALK PHOS (test 91 IU/L 42-121 code = 35A) AST (test code = 20 IU/L See_Comment [Automated 30A) message] The system which generated this result transmit claudio reference range : <=42. The reference range was not used to interpret this result as normal/abnormal . ALT (test code = 50 IU/L See_Comment [Automated 31A) message] The system which generated this result transmit claudio reference range : <=78. The reference range was not used to interpret this result as normal/abnormal . GLUCOMETER GLUCOSE- LAB USE [id number] 05:52:00 Test Item Value Reference Range Interpretation Comments GLUCOMETER (test code 139 mg/dL 70-100 H CLEANE D METERMeter ID: = GMG) [id number] tor: 3440 PETRAHipbone GLUCOMETER GLUCOSE- LAB USE [id number] 00:13:00 Test Item Value Reference Range Interpretation Comments GLUCOMETER (test code 138 mg/dL 70-100 H CLEANE D METERMeter ID: = GMG) [id number] tor: 3440 [place] GLUCOMETER GLUCOSE- LAB USE [id number] 19:26:00 Test Item Value Reference Range Interpretation Comments GLUCOMETER (test code = 123 mg/dL 70-100 H Mete r ID: GMG) [id number] tor: 3440 [place] GLUCOMETER GLUCOSE- LAB USE [id number] 15:42:00 Test Item Value Reference Range Interpretation Comments GLUCOMETER (test code = 124 mg/dL 70-100 H Mete r ID: GMG) [id number] tor: [id number] AZAEL S CHMITZ GLUCOMETER GLUCOSE- LAB USE [id number] 11:22:00 Test Item Value Reference Range Interpretation Comments GLUCOMETER (test code = 134 mg/dL 70-100 H Mete r ID: GMG) [id number] tor: [id number] AZAEL S CHMITZ COMPREHENSIVE METABOLIC [id number] 06:04:00 Test Item Value Reference Range Interpretation Comments GLUCOSE (test code 126 mg/dL 75-100 H = 06D) SODIUM (test code 137 mmol/L 136-145 = 01A) POTASSIUM (test 3.8 mmol/L 3.6-5.1 code = 01B) CHLORIDE (test 102 mmol/L 98-107 code = 04A) CO2 (test code = 29 mmol/L 22-32 02A) ANION GAP (test 9.8 mmol/L code = ANG) BUN (test code = 15 mg/dL 7-18 05D) CREATININE (test 0.3 mg/dL 0.7-1.3 L code = 03E) GFR (test code = 163 See_Comment [Automated GFR) mL/min/1.73m\\S\\2 message] Th e system which generated this result transmit claudio reference range : >=90. The reference range was not used to interpret this result as normal/abnormal . GFR 188 See_Comment [Automated SALVADOREAN (test mL/min/1.73m\\S\\2 message] The code = GFRAA) system which generated this result transmit claudio reference range : >=90. The reference range was not used to interpret this result as normal/abnormal . EGFR (test code = eGFR BY EGFR) CKD-EPI CALCULATION IS NOT RECOMMENDED FOR PATIENTS UNDER 18 YEARS OF AGE. BUN/CREA (test 43 12-20 H code = BCR) CALCIUM (test code 8.8 mg/dL 8.3-9.5 = 09D) BILI TOTAL (test 0.3 mg/dL 0.2-1.0 code = 11A) PROTEIN (test code 6.3 g/dL 6.4-8.2 L = 07D) ALBUMIN (test code 2.5 g/dL 3.5-4.8 L = 08D) GLOBULIN (test 3.8 g/dL 1.5-3.8 code = GLB) ALB/GLOB (test 0.7 1.0-2.6 L code = AGRR) ALK PHOS (test 90 IU/L 42-121 code = 35A) AST (test code = 22 IU/L See_Comment [Automated 30A) message] The system which generated this result transmit claudio reference range : <=42. The reference range was not used to interpret this result as normal/abnormal . ALT (test code = 55 IU/L See_Comment [Automated 31A) message] The system which generated this result transmit claudio reference range : <=78. The reference range was not used to interpret this result as normal/abnormal . CBC (INCLUDES AUTOMATED DIFFERENTIAL)2020-06-04 06:01:00 Test Item Value Reference Range Interpretation Comments WBC (test code = WBC) 7.9 10\\S\\3/uL 4.5-11.0 RBC (test code = RBC) 3.58 10\\S\\6/uL 4.30-5.70 L HGB (test code = HBG) 10.6 g/dL 14.0-18.0 L HCT (test code = HCT) 33.8 % 35.0-46.0 L MCV (test code = MCV) 94.4 fL 80.0-94.0 H MCH (test code = MCH) 29.6 pg 27.0-31.0 MCHC (test code = MCHC) 31.4 g/dL 32.0-36.0 L RDW (test code = RDW) 13.2 % 11.5-14.5 PLT (test code = PLT) 403 10\\S\\3/uL 130-400 H MPV (test code = MPV) 9.6 fL 9.4-12.4 NEUTROP # (test code = NE#) 4.8 10\\S\\3/uL 2.0-8.0 LYMPH # (test code = LY#) 1.9 10\\S\\3/uL 1.2-4.0 MONOCYTE # (test code = MO#) 0.9 10\\S\\3/uL 0.0-1.1 EOSINOPH # (test code = EO#) 0.2 10\\S\\3/uL 0.0-0.7 BASOPHIL # (test code = BA#) 0.1 10\\S\\3/uL 0.0-0.3 IG # (test code = IG#) 0.07 10\\S\\3/uL 0.00-0.06 H NRBC # (test code = NRBC#) 0.00 10\\S\\3/uL 0.00-0.01 NEUTROPH % (test code = NE%) 60.6 % 35.0-73.0 LYMPH % (test code = LY%) 24.4 % 20.0-55.0 MONO % (test code = MO%) 11.2 % 2.5-10.0 H EOSINOPH % (test code = EO%) 2.0 % 0.0-5.0 BASOPHIL % (test code = BA%) 0.9 % 0.0-2.0 IG % (test code = IG%) 0.9 % 0.0-0.8 H NRBC% (test code = NRBC%) 0.0 % 0.0-0.2 MANDIFF (test code = MDIFF) NO NO RBC MORPH (test code = RBCMOR) NORMAL GLUCOMETER GLUCOSE- LAB USE [id number] 05:04:00 Test Item Value Reference Range Interpretation Comments GLUCOMETER (test code 137 mg/dL 70-100 H CLEANE D METERMeter ID: = GMG) [id number] tor: [id number] ANGI T AYLOR GLUCOMETER GLUCOSE- LAB USE [id number] 23:32:00 Test Item Value Reference Range Interpretation Comments GLUCOMETER (test code 139 mg/dL 70-100 H CLEANE D METERMeter ID: = GMG) [id number] tor: [id number] ANGI T AYLOR GLUCOMETER GLUCOSE- LAB USE [id number] 19:54:00 Test Item Value Reference Range Interpretation Comments GLUCOMETER (test code 134 mg/dL 70-100 H CLEANE D METERMeter ID: = GMG) [id number] tor: [id number] ANGI T AYLOR GLUCOMETER GLUCOSE- LAB USE [id number] 15:31:00 Test Item Value Reference Range Interpretation Comments GLUCOMETER (test code = 142 mg/dL 70-100 H Mete r ID: GMG) [id number] tor: [id number] AZAEL S CHMITZ GLUCOMETER GLUCOSE- LAB USE [id number] 11:34:00 Test Item Value Reference Range Interpretation Comments GLUCOMETER (test code = 151 mg/dL 70-100 H Mete r ID: GMG) [id number] tor: [id number] AZAEL S CHMITZ GLUCOMETER GLUCOSE- LAB USE [id number] 06:12:00 Test Item Value Reference Range Interpretation Comments GLUCOMETER (test code = 130 mg/dL 70-100 H Mete r ID: GMG) [id number] tor: [id number] ZOE Carey. LOPEZ GLUCOMETER GLUCOSE- LAB USE [id number] 00:12:00 Test Item Value Reference Range Interpretation Comments GLUCOMETER (test code = 115 mg/dL 70-100 H Mete r ID: GMG) [id number] tor: [id number] ZOE Schwab LOPEZ GLUCOMETER GLUCOSE- LAB USE [id number] 20:11:00 Test Item Value Reference Range Interpretation Comments GLUCOMETER (test code = 153 mg/dL 70-100 H Mete r ID: G) [id number] tor: [id number] ZOE Carey. LOPEZ GLUCOMETER GLUCOSE- LAB USE [id number] 15:10:00 Test Item Value Reference Range Interpretation Comments GLUCOMETER (test code = 127 mg/dL 70-100 H Mete r ID: G) [id number] tor: [id number] MARVIA CR OSWELL GLUCOMETER GLUCOSE- LAB USE [id number] 12:20:00 Test Item Value Reference Range Interpretation Comments GLUCOMETER (test code = 162 mg/dL 70-100 H Mete r ID: G) [id number] tor: [id number] MARVIA CR OSWELL PRO TIME AND [id number] 05:36:00 Test Item Value Reference Range Interpretation Comments PT (test code = 11.6 s 9.8-13.6 TT) INR (test code = 1.0 INR) INRH (test code = SUGGESTED THERAPEUTIC INRH) RANGE FOR INR: 2.5 - 3.5 For Patients with Prosthetic Valves or Patients with recurrent Thromboembolic Events 2.0 - 3.0 For Most Other Applications PTT (test code = 29.0 s 20.2-38.0 PTT) PTTH (test code = To monitor the PTTH) effectiveness of heparin, we offer the Anti-Xa (Heparin Assay). It can be used for either unfractionated or LMW Heparin. Order Code is ANTI-XA COMPREHENSIVE METABOLIC [id number] 05:25:00 Test Item Value Reference Range Interpretation Comments GLUCOSE (test code 127 mg/dL 75-100 H = 06D) SODIUM (test code 138 mmol/L 136-145 = 01A) POTASSIUM (test 3.7 mmol/L 3.6-5.1 code = 01B) CHLORIDE (test 101 mmol/L 98-107 code = 04A) CO2 (test code = 31 mmol/L 22-32 02A) ANION GAP (test 9.7 mmol/L code = ANG) BUN (test code = 14 mg/dL 7-18 05D) CREATININE (test 0.4 mg/dL 0.7-1.3 L code = 03E) GFR (test code = 157 See_Comment [Automated GFR) mL/min/1.73m\\S\\2 message] Th e system which generated this result transmit claudio reference range : >=90. The reference range was not used to interpret this result as normal/abnormal . GFR 182 See_Comment [Automated SALVADOREAN (test mL/min/1.73m\\S\\2 message] The code = GFRAA) system which generated this result transmit claudio reference range : >=90. The reference range was not used to interpret this result as normal/abnormal . EGFR (test code = eGFR BY EGFR) CKD-EPI CALCULATION IS NOT RECOMMENDED FOR PATIENTS UNDER 18 YEARS OF AGE. BUN/CREA (test 37 12-20 H code = BCR) CALCIUM (test code 9.0 mg/dL 8.3-9.5 = 09D) BILI TOTAL (test 0.4 mg/dL 0.2-1.0 code = 11A) PROTEIN (test code 6.3 g/dL 6.4-8.2 L = 07D) ALBUMIN (test code 2.7 g/dL 3.5-4.8 L = 08D) GLOBULIN (test 3.6 g/dL 1.5-3.8 code = GLB) ALB/GLOB (test 0.8 1.0-2.6 L code = AGRR) ALK PHOS (test 84 IU/L 42-121 code = 35A) AST (test code = 33 IU/L See_Comment [Automated 30A) message] The system which generated this result transmit claudio reference range : <=42. The reference range was not used to interpret this result as normal/abnormal . ALT (test code = 66 IU/L See_Comment [Automated 31A) message] The system which generated this result transmit claudio reference range : <=78. The reference range was not used to interpret this result as normal/abnormal . CBC (INCLUDES AUTOMATED DIFFERENTIAL)2020-06-02 05:03:00 Test Item Value Reference Range Interpretation Comments WBC (test code = WBC) 8.0 10\\S\\3/uL 4.5-11.0 RBC (test code = RBC) 3.62 10\\S\\6/uL 4.30-5.70 L HGB (test code = HBG) 10.8 g/dL 14.0-18.0 L HCT (test code = HCT) 34.0 % 35.0-46.0 L MCV (test code = MCV) 93.9 fL 80.0-94.0 MCH (test code = MCH) 29.8 pg 27.0-31.0 MCHC (test code = MCHC) 31.8 g/dL 32.0-36.0 L RDW (test code = RDW) 13.2 % 11.5-14.5 PLT (test code = PLT) 338 10\\S\\3/uL 130-400 MPV (test code = MPV) 9.0 fL 9.4-12.4 L NEUTROP # (test code = NE#) 5.1 10\\S\\3/uL 2.0-8.0 LYMPH # (test code = LY#) 1.9 10\\S\\3/uL 1.2-4.0 MONOCYTE # (test code = MO#) 0.7 10\\S\\3/uL 0.0-1.1 EOSINOPH # (test code = EO#) 0.2 10\\S\\3/uL 0.0-0.7 BASOPHIL # (test code = BA#) 0.1 10\\S\\3/uL 0.0-0.3 IG # (test code = IG#) 0.05 10\\S\\3/uL 0.00-0.06 NRBC # (test code = NRBC#) 0.00 10\\S\\3/uL 0.00-0.01 NEUTROPH % (test code = NE%) 64.0 % 35.0-73.0 LYMPH % (test code = LY%) 23.4 % 20.0-55.0 MONO % (test code = MO%) 8.8 % 2.5-10.0 EOSINOPH % (test code = EO%) 2.4 % 0.0-5.0 BASOPHIL % (test code = BA%) 0.8 % 0.0-2.0 IG % (test code = IG%) 0.6 % 0.0-0.8 NRBC% (test code = NRBC%) 0.0 % 0.0-0.2 MANDIFF (test code = MDIFF) NO NO RBC MORPH (test code = RBCMOR) NORMAL GLUCOMETER GLUCOSE- LAB USE [id number] 04:34:00 Test Item Value Reference Range Interpretation Comments GLUCOMETER (test code 126 mg/dL 70-100 H CLEANE D METERMeter ID: = GMG) [id number] tor: [id number] ANGI T AYLOR GLUCOMETER GLUCOSE- LAB USE [id number] 23:44:00 Test Item Value Reference Range Interpretation Comments GLUCOMETER (test code 116 mg/dL 70-100 H CLEANE D METERMeter ID: = GMG) [id number] tor: [id number] ANGI T AYLOR GLUCOMETER GLUCOSE- LAB USE [id number] 20:13:00 Test Item Value Reference Range Interpretation Comments GLUCOMETER (test code 130 mg/dL 70-100 H CLEANE D METERMeter ID: = GMG) [id number] tor: [id number] ANGI T AYLOR GLUCOMETER GLUCOSE- LAB USE [id number] 15:22:00 Test Item Value Reference Range Interpretation Comments GLUCOMETER (test code = 135 mg/dL 70-100 H Mete r ID: GMG) [id number] tor: [id number] JESSA MENON DILANTIN (PHENYTOIN) [id number] 12:26:00 Test Item Value Reference Range Interpretation Comments PHENYTOIN (test code = 68C) 14.0 ug/mL 10.0-20.0 GLUCOMETER GLUCOSE- LAB USE [id number] 12:22:00 Test Item Value Reference Range Interpretation Comments GLUCOMETER (test code = 129 mg/dL 70-100 H Mete r ID: GMG) [id number] tor: [id number] JESSA MENON URINE [id number] 08:45:00 Test Item Value Reference Range Interpretation Comments Culture Observations (test NO GROWTH (<1,000 code = COB1) CFU/ML) PRO TIME AND [id number] 06:24:00 Test Item Value Reference Range Interpretation Comments PT (test code = 11.5 s 9.8-13.6 TT) INR (test code = 1.0 INR) INRH (test code = SUGGESTED THERAPEUTIC INRH) RANGE FOR INR: 2.5 - 3.5 For Patients with Prosthetic Valves or Patients with recurrent Thromboembolic Events 2.0 - 3.0 For Most Other Applications PTT (test code = 28.5 s 20.2-38.0 PTT) PTTH (test code = To monitor the PTTH) effectiveness of heparin, we offer the Anti-Xa (Heparin Assay). It can be used for either unfractionated or LMW Heparin. Order Code is ANTI-XA CBC (INCLUDES AUTOMATED DIFFERENTIAL)2020-06-01 06:13:00 Test Item Value Reference Range Interpretation Comments WBC (test code = WBC) 6.7 10\\S\\3/uL 4.5-11.0 RBC (test code = RBC) 3.75 10\\S\\6/uL 4.30-5.70 L HGB (test code = HBG) 11.0 g/dL 14.0-18.0 L HCT (test code = HCT) 35.4 % 35.0-46.0 MCV (test code = MCV) 94.4 fL 80.0-94.0 H MCH (test code = MCH) 29.3 pg 27.0-31.0 MCHC (test code = MCHC) 31.1 g/dL 32.0-36.0 L RDW (test code = RDW) 13.1 % 11.5-14.5 PLT (test code = PLT) 319 10\\S\\3/uL 130-400 MPV (test code = MPV) 9.7 fL 9.4-12.4 NEUTROP # (test code = NE#) 3.0 10\\S\\3/uL 2.0-8.0 LYMPH # (test code = LY#) 2.4 10\\S\\3/uL 1.2-4.0 MONOCYTE # (test code = MO#) 0.7 10\\S\\3/uL 0.0-1.1 EOSINOPH # (test code = EO#) 0.4 10\\S\\3/uL 0.0-0.7 BASOPHIL # (test code = BA#) 0.1 10\\S\\3/uL 0.0-0.3 IG # (test code = IG#) 0.08 10\\S\\3/uL 0.00-0.06 H NRBC # (test code = NRBC#) 0.00 10\\S\\3/uL 0.00-0.01 NEUTROPH % (test code = NE%) 44.9 % 35.0-73.0 LYMPH % (test code = LY%) 35.8 % 20.0-55.0 MONO % (test code = MO%) 11.0 % 2.5-10.0 H EOSINOPH % (test code = EO%) 6.1 % 0.0-5.0 H BASOPHIL % (test code = BA%) 1.0 % 0.0-2.0 IG % (test code = IG%) 1.2 % 0.0-0.8 H NRBC% (test code = NRBC%) 0.0 % 0.0-0.2 MANDIFF (test code = MDIFF) NO NO RBC MORPH (test code = RBCMOR) NORMAL COMPREHENSIVE METABOLIC [id number] 06:01:00 Test Item Value Reference Range Interpretation Comments GLUCOSE (test code 106 mg/dL 75-100 H = 06D) SODIUM (test code 138 mmol/L 136-145 = 01A) POTASSIUM (test 4.1 mmol/L 3.6-5.1 code = 01B) CHLORIDE (test 101 mmol/L 98-107 code = 04A) CO2 (test code = 33 mmol/L 22-32 H 02A) ANION GAP (test 8.1 mmol/L code = ANG) BUN (test code = 15 mg/dL 7-18 05D) CREATININE (test 0.3 mg/dL 0.7-1.3 L code = 03E) GFR (test code = 165 See_Comment [Automated GFR) mL/min/1.73m\\S\\2 message] Th e system which generated this result transmit claudio reference range : >=90. The reference range was not used to interpret this result as normal/abnormal . GFR 191 See_Comment [Automated SALVADOREAN (test mL/min/1.73m\\S\\2 message] The code = GFRAA) system which generated this result transmit claudio reference range : >=90. The reference range was not used to interpret this result as normal/abnormal . EGFR (test code = eGFR BY EGFR) CKD-EPI CALCULATION IS NOT RECOMMENDED FOR PATIENTS UNDER 18 YEARS OF AGE. BUN/CREA (test 45 12-20 H code = BCR) CALCIUM (test code 9.0 mg/dL 8.3-9.5 = 09D) BILI TOTAL (test 0.2 mg/dL 0.2-1.0 code = 11A) PROTEIN (test code 6.3 g/dL 6.4-8.2 L = 07D) ALBUMIN (test code 2.6 g/dL 3.5-4.8 L = 08D) GLOBULIN (test 3.7 g/dL 1.5-3.8 code = GLB) ALB/GLOB (test 0.7 1.0-2.6 L code = AGRR) ALK PHOS (test 93 IU/L 42-121 code = 35A) AST (test code = 31 IU/L See_Comment [Automated 30A) message] The system which generated this result transmit claudio reference range : <=42. The reference range was not used to interpret this result as normal/abnormal . ALT (test code = 60 IU/L See_Comment [Automated 31A) message] The system which generated this result transmit claudio reference range : <=78. The reference range was not used to interpret this result as normal/abnormal . GLUCOMETER GLUCOSE- LAB USE [id number] 05:41:00 Test Item Value Reference Range Interpretation Comments GLUCOMETER (test code 120 mg/dL 70-100 H CLEANE D METERMeter ID: = GMG) [id number] tor: [id number] [facility]- LAB USE [id number] 23:35:00 Test Item Value Reference Range Interpretation Comments GLUCOMETER (test code 120 mg/dL 70-100 H CLEANE D METERMeter ID: = GMG) [id number] tor: [id number] [facility]- LAB USE [id number] 20:18:00 Test Item Value Reference Range Interpretation Comments GLUCOMETER (test code 135 mg/dL 70-100 H CLEANE D METERMeter ID: = GMG) [id number] tor: [id number] [facility] GLUCOMETER GLUCOSE- LAB USE [id number] 15:34:00 Test Item Value Reference Range Interpretation Comments GLUCOMETER (test code 137 mg/dL 70-100 H CLEANE D METERMeter ID: = GMG) [id number] tor: [id number] ERIC RI OS GLUCOMETER GLUCOSE- LAB USE [id number] 10:55:00 Test Item Value Reference Range Interpretation Comments GLUCOMETER (test code 125 mg/dL 70-100 H CLEANE D METERMeter ID: = GMG) [id number] tor: [id number] ERIC RI OS GLUCOMETER GLUCOSE- LAB USE [id number] 05:21:00 Test Item Value Reference Range Interpretation Comments GLUCOMETER (test code 139 mg/dL 70-100 H CLEANE D METERMeter ID: = GMG) [id number] tor: [id number] [facility] COMPREHENSIVE METABOLIC [id number] 03:29:00 Test Item Value Reference Range Interpretation Comments GLUCOSE (test code 120 mg/dL 75-100 H = 06D) SODIUM (test code 139 mmol/L 136-145 = 01A) POTASSIUM (test 3.7 mmol/L 3.6-5.1 code = 01B) CHLORIDE (test 102 mmol/L 98-107 code = 04A) CO2 (test code = 32 mmol/L 22-32 02A) ANION GAP (test 8.7 mmol/L code = ANG) BUN (test code = 16 mg/dL 7-18 05D) CREATININE (test 0.3 mg/dL 0.7-1.3 L code = 03E) GFR (test code = 164 See_Comment [Automated GFR) mL/min/1.73m\\S\\2 message] e system which generated this result transmit claudio reference range : >=90. The reference range was not used to interpret this result as normal/abnormal . GFR 191 See_Comment [Automated SALVADOREAN (test mL/min/1.73m\\S\\2 message] The code = GFRAA) system which generated this result transmit claudio reference range : >=90. The reference range was not used to interpret this result as normal/abnormal . EGFR (test code = eGFR BY EGFR) CKD-EPI CALCULATION IS NOT RECOMMENDED FOR PATIENTS UNDER 18 YEARS OF AGE. BUN/CREA (test 48 12-20 H code = BCR) CALCIUM (test code 8.6 mg/dL 8.3-9.5 = 09D) BILI TOTAL (test 0.2 mg/dL 0.2-1.0 code = 11A) PROTEIN (test code 6.2 g/dL 6.4-8.2 L = 07D) ALBUMIN (test code 2.5 g/dL 3.5-4.8 L = 08D) GLOBULIN (test 3.7 g/dL 1.5-3.8 code = GLB) ALB/GLOB (test 0.7 1.0-2.6 L code = AGRR) ALK PHOS (test 96 IU/L 42-121 code = 35A) AST (test code = 21 IU/L See_Comment [Automated 30A) message] The system which generated this result transmit claudio reference range : <=42. The reference range was not used to interpret this result as normal/abnormal . ALT (test code = 47 IU/L See_Comment [Automated 31A) message] The system which generated this result transmit claudio reference range : <=78. The reference range was not used to interpret this result as normal/abnormal . CBC (INCLUDES AUTOMATED DIFFERENTIAL)2020-05-31 03:08:00 Test Item Value Reference Range Interpretation Comments WBC (test code = WBC) 7.1 10\\S\\3/uL 4.5-11.0 RBC (test code = RBC) 3.64 10\\S\\6/uL 4.30-5.70 L HGB (test code = HBG) 11.3 g/dL 14.0-18.0 L HCT (test code = HCT) 33.7 % 35.0-46.0 L MCV (test code = MCV) 92.6 fL 80.0-94.0 MCH (test code = MCH) 31.0 pg 27.0-31.0 MCHC (test code = MCHC) 33.5 g/dL 32.0-36.0 RDW (test code = RDW) 12.9 % 11.5-14.5 PLT (test code = PLT) 265 10\\S\\3/uL 130-400 MPV (test code = MPV) 8.9 fL 9.4-12.4 L NEUTROP # (test code = NE#) 3.8 10\\S\\3/uL 2.0-8.0 LYMPH # (test code = LY#) 2.0 10\\S\\3/uL 1.2-4.0 MONOCYTE # (test code = MO#) 0.8 10\\S\\3/uL 0.0-1.1 EOSINOPH # (test code = EO#) 0.4 10\\S\\3/uL 0.0-0.7 BASOPHIL # (test code = BA#) 0.1 10\\S\\3/uL 0.0-0.3 IG # (test code = IG#) 0.05 10\\S\\3/uL 0.00-0.06 NRBC # (test code = NRBC#) 0.00 10\\S\\3/uL 0.00-0.01 NEUTROPH % (test code = NE%) 53.6 % 35.0-73.0 LYMPH % (test code = LY%) 27.6 % 20.0-55.0 MONO % (test code = MO%) 11.5 % 2.5-10.0 H EOSINOPH % (test code = EO%) 5.9 % 0.0-5.0 H BASOPHIL % (test code = BA%) 0.7 % 0.0-2.0 IG % (test code = IG%) 0.7 % 0.0-0.8 NRBC% (test code = NRBC%) 0.0 % 0.0-0.2 MANDIFF (test code = MDIFF) NO NO RBC MORPH (test code = RBCMOR) NORMAL GLUCOMETER GLUCOSE- LAB USE [id number] 00:02:00 Test Item Value Reference Range Interpretation Comments GLUCOMETER (test code 116 mg/dL 70-100 H CLEANE D METERMeter ID: = GMG) [id number] tor: [id number] ANGI MITTAL GLUCOMETER GLUCOSE- LAB USE [id number] 19:40:00 Test Item Value Reference Range Interpretation Comments GLUCOMETER (test code 128 mg/dL 70-100 H CLEANE D METERMeter ID: = GMG) [id number] tor: [id number] ANGI MITTAL GLUCOMETER GLUCOSE- LAB USE [id number] 16:04:00 Test Item Value Reference Range Interpretation Comments GLUCOMETER (test code 129 mg/dL 70-100 H CLEANE D METERMeter ID: = GMG) [id number] tor: [id number] ERIC RI OS GLUCOMETER GLUCOSE- LAB USE [id number] 11:38:00 Test Item Value Reference Range Interpretation Comments GLUCOMETER (test code 144 mg/dL 70-100 H CLEANE D METERMeter ID: = GMG) [id number] tor: [id number] ERIC RI OS COMPREHENSIVE METABOLIC [id number] 08:06:00 Test Item Value Reference Range Interpretation Comments GLUCOSE (test code 113 mg/dL 75-100 H = 06D) SODIUM (test code 138 mmol/L 136-145 = 01A) POTASSIUM (test 3.6 mmol/L 3.6-5.1 code = 01B) CHLORIDE (test 102 mmol/L 98-107 code = 04A) CO2 (test code = 32 mmol/L 22-32 02A) ANION GAP (test 7.6 mmol/L code = ANG) BUN (test code = 15 mg/dL 7-18 05D) CREATININE (test 0.3 mg/dL 0.7-1.3 L code = 03E) GFR (test code = 170 See_Comment [Automated GFR) mL/min/1.73m\\S\\2 message] Th e system which generated this result transmit claudio reference range : >=90. The reference range was not used to interpret this result as normal/abnormal . GFR 197 See_Comment [Automated SALVADOREAN (test mL/min/1.73m\\S\\2 message] The code = GFRAA) system which generated this result transmit claudio reference range : >=90. The reference range was not used to interpret this result as normal/abnormal . EGFR (test code = eGFR BY EGFR) CKD-EPI CALCULATION IS NOT RECOMMENDED FOR PATIENTS UNDER 18 YEARS OF AGE. BUN/CREA (test 48 12-20 H code = BCR) CALCIUM (test code 9.2 mg/dL 8.3-9.5 = 09D) BILI TOTAL (test 0.2 mg/dL 0.2-1.0 code = 11A) PROTEIN (test code 6.6 g/dL 6.4-8.2 = 07D) ALBUMIN (test code 2.8 g/dL 3.5-4.8 L = 08D) GLOBULIN (test 3.8 g/dL 1.5-3.8 code = GLB) ALB/GLOB (test 0.7 1.0-2.6 L code = AGRR) ALK PHOS (test 98 IU/L 42-121 code = 35A) AST (test code = 23 IU/L See_Comment [Automated 30A) message] The system which generated this result transmit claudio reference range : <=42. The reference range was not used to interpret this result as normal/abnormal . ALT (test code = 49 IU/L See_Comment [Automated 31A) message] The system which generated this result transmit claudio reference range : <=78. The reference range was not used to interpret this result as normal/abnormal . DILANTIN (PHENYTOIN) [id number] 07:59:00 Test Item Value Reference Range Interpretation Comments PHENYTOIN (test code = 68C) 17.3 ug/mL 10.0-20.0 PRO TIME AND [id number] 07:41:00 Test Item Value Reference Range Interpretation Comments PT (test code = 11.3 s 9.8-13.6 TT) INR (test code = 1.0 INR) INRH (test code = SUGGESTED THERAPEUTIC INRH) RANGE FOR INR: 2.5 - 3.5 For Patients with Prosthetic Valves or Patients with recurrent Thromboembolic Events 2.0 - 3.0 For Most Other Applications PTT (test code = 24.1 s 20.2-38.0 PTT) PTTH (test code = To monitor the PTTH) effectiveness of heparin, we offer the Anti-Xa (Heparin Assay). It can be used for either unfractionated or LMW Heparin. Order Code is ANTI-XA CBC (INCLUDES AUTOMATED DIFFERENTIAL)2020-05-30 07:36:00 Test Item Value Reference Range Interpretation Comments WBC (test code = WBC) 6.3 10\\S\\3/uL 4.5-11.0 RBC (test code = RBC) 3.90 10\\S\\6/uL 4.30-5.70 L HGB (test code = HBG) 11.8 g/dL 14.0-18.0 L HCT (test code = HCT) 36.1 % 35.0-46.0 MCV (test code = MCV) 92.6 fL 80.0-94.0 MCH (test code = MCH) 30.3 pg 27.0-31.0 MCHC (test code = MCHC) 32.7 g/dL 32.0-36.0 RDW (test code = RDW) 13.1 % 11.5-14.5 PLT (test code = PLT) 278 10\\S\\3/uL 130-400 MPV (test code = MPV) 9.2 fL 9.4-12.4 L NEUTROP # (test code = NE#) 4.0 10\\S\\3/uL 2.0-8.0 LYMPH # (test code = LY#) 1.3 10\\S\\3/uL 1.2-4.0 MONOCYTE # (test code = MO#) 0.7 10\\S\\3/uL 0.0-1.1 EOSINOPH # (test code = EO#) 0.2 10\\S\\3/uL 0.0-0.7 BASOPHIL # (test code = BA#) 0.1 10\\S\\3/uL 0.0-0.3 IG # (test code = IG#) 0.04 10\\S\\3/uL 0.00-0.06 NRBC # (test code = NRBC#) 0.00 10\\S\\3/uL 0.00-0.01 NEUTROPH % (test code = NE%) 63.5 % 35.0-73.0 LYMPH % (test code = LY%) 21.3 % 20.0-55.0 MONO % (test code = MO%) 11.1 % 2.5-10.0 H EOSINOPH % (test code = EO%) 2.7 % 0.0-5.0 BASOPHIL % (test code = BA%) 0.8 % 0.0-2.0 IG % (test code = IG%) 0.6 % 0.0-0.8 NRBC% (test code = NRBC%) 0.0 % 0.0-0.2 MANDIFF (test code = MDIFF) NO NO RBC MORPH (test code = RBCMOR) NORMAL GLUCOMETER GLUCOSE- LAB USE [id number] 05:50:00 Test Item Value Reference Range Interpretation Comments GLUCOMETER (test code = 139 mg/dL 70-100 H Mete r ID: GMG) [id number] tor: [address] GLUCOMETER GLUCOSE- LAB USE [id number] 01:00:00 Test Item Value Reference Range Interpretation Comments GLUCOMETER (test code = 133 mg/dL 70-100 H Mete r ID: GMG) [id number] tor: [address] GLUCOMETER GLUCOSE- LAB USE [id number] 20:41:00 Test Item Value Reference Range Interpretation Comments GLUCOMETER (test code = 123 mg/dL 70-100 H Mete r ID: GMG) [id number] tor: [address] GLUCOMETER GLUCOSE- LAB USE [id number] 16:18:00 Test Item Value Reference Range Interpretation Comments GLUCOMETER (test code = 123 mg/dL 70-100 H Mete r ID: GMG) [id number] tor: [address] [place] GLUCOMETER GLUCOSE- LAB USE [id number] 11:27:00 Test Item Value Reference Range Interpretation Comments GLUCOMETER (test code = 145 mg/dL 70-100 H Mete r ID: GMG) [id number] tor: [address] [facility] COMPREHENSIVE METABOLIC [id number] 06:45:00 Test Item Value Reference Range Interpretation Comments GLUCOSE (test code 114 mg/dL 75-100 H = 06D) SODIUM (test code 142 mmol/L 136-145 = 01A) POTASSIUM (test 2.8 mmol/L 3.6-5.1 LL code = 01B) CHLORIDE (test 107 mmol/L 98-107 code = 04A) CO2 (test code = 28 mmol/L 22-32 02A) ANION GAP (test 9.8 mmol/L code = ANG) BUN (test code = 18 mg/dL 7-18 05D) CREATININE (test 0.3 mg/dL 0.7-1.3 L code = 03E) GFR (test code = 173 See_Comment [Automated GFR) mL/min/1.73m\\S\\2 message] Th e system which generated this result transmit claudio reference range : >=90. The reference range was not used to interpret this result as normal/abnormal . GFR 201 See_Comment [Automated SALVADOREAN (test mL/min/1.73m\\S\\2 message] The code = GFRAA) system which generated this result transmit claudio reference range : >=90. The reference range was not used to interpret this result as normal/abnormal . EGFR (test code = eGFR BY EGFR) CKD-EPI CALCULATION IS NOT RECOMMENDED FOR PATIENTS UNDER 18 YEARS OF AGE. BUN/CREA (test 61 12-20 H code = BCR) CALCIUM (test code 7.5 mg/dL 8.3-9.5 L = 09D) BILI TOTAL (test 0.2 mg/dL 0.2-1.0 code = 11A) PROTEIN (test code 5.4 g/dL 6.4-8.2 L = 07D) ALBUMIN (test code 2.2 g/dL 3.5-4.8 L = 08D) GLOBULIN (test 3.2 g/dL 1.5-3.8 code = GLB) ALB/GLOB (test 0.7 1.0-2.6 L code = AGRR) ALK PHOS (test 83 IU/L 42-121 code = 35A) AST (test code = 18 IU/L See_Comment [Automated 30A) message] The system which generated this result transmit claudio reference range : <=42. The reference range was not used to interpret this result as normal/abnormal . ALT (test code = 37 IU/L See_Comment [Automated 31A) message] The system which generated this result transmit claudio reference range : <=78. The reference range was not used to interpret this result as normal/abnormal . GLUCOMETER GLUCOSE- LAB USE [id number] 06:02:00 Test Item Value Reference Range Interpretation Comments GLUCOMETER (test code = 147 mg/dL 70-100 H Mete r ID: GMG) [id number] tor: [id number] [facility] CBC (INCLUDES AUTOMATED DIFFERENTIAL)2020-05-29 03:35:00 Test Item Value Reference Range Interpretation Comments WBC (test code = WBC) 6.1 10\\S\\3/uL 4.5-11.0 RBC (test code = RBC) 3.26 10\\S\\6/uL 4.30-5.70 L HGB (test code = HBG) 9.7 g/dL 14.0-18.0 L HCT (test code = HCT) 31.2 % 35.0-46.0 L MCV (test code = MCV) 95.7 fL 80.0-94.0 H MCH (test code = MCH) 29.8 pg 27.0-31.0 MCHC (test code = MCHC) 31.1 g/dL 32.0-36.0 L RDW (test code = RDW) 13.1 % 11.5-14.5 PLT (test code = PLT) 248 10\\S\\3/uL 130-400 MPV (test code = MPV) 9.4 fL 9.4-12.4 NEUTROP # (test code = NE#) 3.2 10\\S\\3/uL 2.0-8.0 LYMPH # (test code = LY#) 1.9 10\\S\\3/uL 1.2-4.0 MONOCYTE # (test code = MO#) 0.7 10\\S\\3/uL 0.0-1.1 EOSINOPH # (test code = EO#) 0.2 10\\S\\3/uL 0.0-0.7 BASOPHIL # (test code = BA#) 0.1 10\\S\\3/uL 0.0-0.3 IG # (test code = IG#) 0.03 10\\S\\3/uL 0.00-0.06 NRBC # (test code = NRBC#) 0.00 10\\S\\3/uL 0.00-0.01 NEUTROPH % (test code = NE%) 53.1 % 35.0-73.0 LYMPH % (test code = LY%) 31.2 % 20.0-55.0 MONO % (test code = MO%) 10.7 % 2.5-10.0 H EOSINOPH % (test code = EO%) 3.5 % 0.0-5.0 BASOPHIL % (test code = BA%) 1.0 % 0.0-2.0 IG % (test code = IG%) 0.5 % 0.0-0.8 NRBC% (test code = NRBC%) 0.0 % 0.0-0.2 MANDIFF (test code = MDIFF) NO NO RBC MORPH (test code = RBCMOR) NORMAL GLUCOMETER GLUCOSE- LAB USE [id number] 00:04:00 Test Item Value Reference Range Interpretation Comments GLUCOMETER (test code = 111 mg/dL 70-100 H Mete r ID: GMG) [id number] tor: [id number] LOGAN HORVATH GLUCOMETER GLUCOSE- LAB USE [id number] 17:06:00 Test Item Value Reference Range Interpretation Comments GLUCOMETER (test code 121 mg/dL 70-100 H CLEANE D METERMeter ID: = GMG) [id number] tor: [id number] LISETH HOLLEY YUKO GLUCOMETER GLUCOSE- LAB USE [id number] 11:33:00 Test Item Value Reference Range Interpretation Comments GLUCOMETER (test code 136 mg/dL 70-100 H CLEANE D METERMeter ID: = GMG) [id number] tor: 4762 Gameyola YUKO RESPIRATORY & GRAM STAIN [id number] 11:10:00 Test Item Value Reference Range Interpretation Comments Culture Observations NORMAL RESPIRATORY (test code = COB1) STACY Direct Exam (test code RARE WHITE BLOOD CELLS = DE1) SEEN Direct Exam (test code RARE EPITHELIAL CELLS = DE2) SEEN Direct Exam (test code RARE GRAM POSITIVE = DE3) COCCI Direct Exam (test code RARE GRAM POSITIVE YVONNE A = DE4) Isolate 1 (test code = Enterobacter aerogenes ISO1) piperacillin/tazobactam ug/mL S (test code = tzp) ceftazidime (test code ug/mL S = frederick) ceftriaxone1 (test code ug/mL S = ctr) cefepime (test code = ug/mL S fep) aztreonam (test code = ug/mL S azm) ertapenem (test code = ug/mL S etp) meropenem (test code = ug/mL S mem) gentamicin (test code = ug/mL S gm) tobramycin (test code = ug/mL S tob) levofloxacin (test code ug/mL S = lev) trimethoprim/sulfametho ug/mL S xazole (test code = sxt) Isolate 3 (test code = Danielle albicans A ISO3) DILANTIN (PHENYTOIN) [id number] 05:46:00 Test Item Value Reference Range Interpretation Comments PHENYTOIN (test code = 68C) 9.1 ug/mL 10.0-20.0 LL GLUCOMETER GLUCOSE- LAB USE [id number] 05:13:00 Test Item Value Reference Range Interpretation Comments GLUCOMETER (test code = 119 mg/dL 70-100 H Mete r ID: GMG) [id number] tor: [id number] LOGAN HORVATH [facility] METABOLIC [id number] 05:12:00 Test Item Value Reference Range Interpretation Comments GLUCOSE (test code 101 mg/dL 75-100 H = 06D) SODIUM (test code 141 mmol/L 136-145 = 01A) POTASSIUM (test 3.2 mmol/L 3.6-5.1 L code = 01B) CHLORIDE (test 106 mmol/L 98-107 code = 04A) CO2 (test code = 31 mmol/L 22-32 02A) ANION GAP (test 7.2 mmol/L code = ANG) BUN (test code = 18 mg/dL 7-18 05D) CREATININE (test 0.3 mg/dL 0.7-1.3 L code = 03E) GFR (test code = 178 See_Comment [Automated GFR) mL/min/1.73m\\S\\2 message] Th e system which generated this result transmit claudio reference range : >=90. The reference range was not used to interpret this result as normal/abnormal . GFR 206 See_Comment [Automated SALVADOREAN (test mL/min/1.73m\\S\\2 message] The code = GFRAA) system which generated this result transmit claudio reference range : >=90. The reference range was not used to interpret this result as normal/abnormal . EGFR (test code = eGFR BY EGFR) CKD-EPI CALCULATION IS NOT RECOMMENDED FOR PATIENTS UNDER 18 YEARS OF AGE. BUN/CREA (test 65 12-20 H code = BCR) CALCIUM (test code 8.0 mg/dL 8.3-9.5 L = 09D) BILI TOTAL (test 0.5 mg/dL 0.2-1.0 code = 11A) PROTEIN (test code 5.9 g/dL 6.4-8.2 L = 07D) ALBUMIN (test code 2.4 g/dL 3.5-4.8 L = 08D) GLOBULIN (test 3.5 g/dL 1.5-3.8 code = GLB) ALB/GLOB (test 0.7 1.0-2.6 L code = AGRR) ALK PHOS (test 93 IU/L 42-121 code = 35A) AST (test code = 18 IU/L See_Comment [Automated 30A) message] The system which generated this result transmit claudio reference range : <=42. The reference range was not used to interpret this result as normal/abnormal . ALT (test code = 46 IU/L See_Comment [Automated 31A) message] The system which generated this result transmit claudio reference range : <=78. The reference range was not used to interpret this result as normal/abnormal . CBC (INCLUDES AUTOMATED DIFFERENTIAL)2020-05-28 04:42:00 Test Item Value Reference Range Interpretation Comments WBC (test code = WBC) 7.0 10\\S\\3/uL 4.5-11.0 RBC (test code = RBC) 3.61 10\\S\\6/uL 4.30-5.70 L HGB (test code = HBG) 10.8 g/dL 14.0-18.0 L HCT (test code = HCT) 34.6 % 35.0-46.0 L MCV (test code = MCV) 95.8 fL 80.0-94.0 H MCH (test code = MCH) 29.9 pg 27.0-31.0 MCHC (test code = MCHC) 31.2 g/dL 32.0-36.0 L RDW (test code = RDW) 13.2 % 11.5-14.5 PLT (test code = PLT) 250 10\\S\\3/uL 130-400 MPV (test code = MPV) 9.2 fL 9.4-12.4 L NEUTROP # (test code = NE#) 3.9 10\\S\\3/uL 2.0-8.0 LYMPH # (test code = LY#) 1.7 10\\S\\3/uL 1.2-4.0 MONOCYTE # (test code = MO#) 0.9 10\\S\\3/uL 0.0-1.1 EOSINOPH # (test code = EO#) 0.3 10\\S\\3/uL 0.0-0.7 BASOPHIL # (test code = BA#) 0.1 10\\S\\3/uL 0.0-0.3 IG # (test code = IG#) 0.08 10\\S\\3/uL 0.00-0.06 H NRBC # (test code = NRBC#) 0.00 10\\S\\3/uL 0.00-0.01 NEUTROPH % (test code = NE%) 56.1 % 35.0-73.0 LYMPH % (test code = LY%) 24.6 % 20.0-55.0 MONO % (test code = MO%) 13.3 % 2.5-10.0 H EOSINOPH % (test code = EO%) 3.9 % 0.0-5.0 BASOPHIL % (test code = BA%) 1.0 % 0.0-2.0 IG % (test code = IG%) 1.1 % 0.0-0.8 H NRBC% (test code = NRBC%) 0.0 % 0.0-0.2 MANDIFF (test code = MDIFF) NO NO RBC MORPH (test code = RBCMOR) NORMAL GLUCOMETER GLUCOSE- LAB USE [id number] 23:48:00 Test Item Value Reference Range Interpretation Comments GLUCOMETER (test code = 140 mg/dL 70-100 H Mete r ID: GMG) [id number] tor: [id number] LOGAN HORVATH GLUCOMETER GLUCOSE- LAB USE [id number] 17:34:00 Test Item Value Reference Range Interpretation Comments GLUCOMETER (test code 109 mg/dL 70-100 H CLEANE D METERMeter ID: = GMG) [id number] tor: 4762 LISETH BABB YUKO GLUCOMETER GLUCOSE- LAB USE [id number] 11:41:00 Test Item Value Reference Range Interpretation Comments GLUCOMETER (test code 122 mg/dL 70-100 H CLEANE D METERMeter ID: = GMG) [id number] tor: 4762 LISETH HUNTLEY BLOOD [id number] 07:02:00 Test Item Value Reference Range Interpretation Comments Culture Observations (test NO GROWTH AFTER 5 code = COB1) DAYS DILANTIN (PHENYTOIN) [id number] 04:08:00 Test Item Value Reference Range Interpretation Comments PHENYTOIN (test code = 68C) 8.5 ug/mL 10.0-20.0 LL COMPREHENSIVE METABOLIC [id number] 03:52:00 Test Item Value Reference Range Interpretation Comments GLUCOSE (test code 125 mg/dL 75-100 H = 06D) SODIUM (test code 140 mmol/L 136-145 = 01A) POTASSIUM (test 3.6 mmol/L 3.6-5.1 code = 01B) CHLORIDE (test 101 mmol/L 98-107 code = 04A) CO2 (test code = 32 mmol/L 22-32 02A) ANION GAP (test 10.6 mmol/L code = ANG) BUN (test code = 18 mg/dL 7-18 05D) CREATININE (test 0.5 mg/dL 0.7-1.3 L code = 03E) GFR (test code = 144 See_Comment [Automated GFR) mL/min/1.73m\\S\\2 message] e system which generated this result transmit claudio reference range : >=90. The reference range was not used to interpret this result as normal/abnormal . GFR 167 See_Comment [Automated SALVADOREAN (test mL/min/1.73m\\S\\2 message] The code = GFRAA) system which generated this result transmit claudio reference range : >=90. The reference range was not used to interpret this result as normal/abnormal . EGFR (test code = eGFR BY EGFR) CKD-EPI CALCULATION IS NOT RECOMMENDED FOR PATIENTS UNDER 18 YEARS OF AGE. BUN/CREA (test 39 12-20 H code = BCR) CALCIUM (test code 9.3 mg/dL 8.3-9.5 = 09D) BILI TOTAL (test 0.4 mg/dL 0.2-1.0 code = 11A) PROTEIN (test code 6.9 g/dL 6.4-8.2 = 07D) ALBUMIN (test code 2.9 g/dL 3.5-4.8 L = 08D) GLOBULIN (test 4.0 g/dL 1.5-3.8 H code = GLB) ALB/GLOB (test 0.7 1.0-2.6 L code = AGRR) ALK PHOS (test 100 IU/L 42-121 code = 35A) AST (test code = 28 IU/L See_Comment [Automated 30A) message] The system which generated this result transmit claudio reference range : <=42. The reference range was not used to interpret this result as normal/abnormal . ALT (test code = 62 IU/L See_Comment [Automated 31A) message] The system which generated this result transmit claudio reference range : <=78. The reference range was not used to interpret this result as normal/abnormal . CBC (INCLUDES AUTOMATED DIFFERENTIAL)2020-05-27 03:39:00 Test Item Value Reference Range Interpretation Comments WBC (test code = WBC) 10.5 10\\S\\3/uL 4.5-11.0 RBC (test code = RBC) 3.93 10\\S\\6/uL 4.30-5.70 L HGB (test code = HBG) 12.0 g/dL 14.0-18.0 L HCT (test code = HCT) 36.0 % 35.0-46.0 MCV (test code = MCV) 91.6 fL 80.0-94.0 MCH (test code = MCH) 30.5 pg 27.0-31.0 MCHC (test code = MCHC) 33.3 g/dL 32.0-36.0 RDW (test code = RDW) 13.2 % 11.5-14.5 PLT (test code = PLT) 305 10\\S\\3/uL 130-400 MPV (test code = MPV) 9.0 fL 9.4-12.4 L NEUTROP # (test code = NE#) 6.7 10\\S\\3/uL 2.0-8.0 LYMPH # (test code = LY#) 2.3 10\\S\\3/uL 1.2-4.0 MONOCYTE # (test code = MO#) 1.2 10\\S\\3/uL 0.0-1.1 H EOSINOPH # (test code = EO#) 0.2 10\\S\\3/uL 0.0-0.7 BASOPHIL # (test code = BA#) 0.1 10\\S\\3/uL 0.0-0.3 IG # (test code = IG#) 0.09 10\\S\\3/uL 0.00-0.06 H NRBC # (test code = NRBC#) 0.00 10\\S\\3/uL 0.00-0.01 NEUTROPH % (test code = NE%) 63.7 % 35.0-73.0 LYMPH % (test code = LY%) 21.5 % 20.0-55.0 MONO % (test code = MO%) 11.8 % 2.5-10.0 H EOSINOPH % (test code = EO%) 1.6 % 0.0-5.0 BASOPHIL % (test code = BA%) 0.5 % 0.0-2.0 IG % (test code = IG%) 0.9 % 0.0-0.8 H NRBC% (test code = NRBC%) 0.0 % 0.0-0.2 MANDIFF (test code = MDIFF) NO NO RBC MORPH (test code = RBCMOR) NORMAL GLUCOMETER GLUCOSE- LAB USE [id number] 00:37:00 Test Item Value Reference Range Interpretation Comments GLUCOMETER (test code = 140 mg/dL 70-100 H Mete r ID: GMG) [id number] tor: [id number] MARIALUISA CHES NATHANIEL GLUCOMETER GLUCOSE- LAB USE [id number] 17:15:00 Test Item Value Reference Range Interpretation Comments GLUCOMETER (test code = 99 mg/dL 70-100 Mete r ID: GMG) [id number] tor: [id number] RAINI BUT LER GLUCOMETER GLUCOSE- LAB USE [id number] 11:43:00 Test Item Value Reference Range Interpretation Comments GLUCOMETER (test code = 158 mg/dL 70-100 H Mete r ID: GMG) [id number] tor: 9804 CONCHITA S TAINE GLUCOMETER GLUCOSE- LAB USE [id number] 11:43:00 Test Item Value Reference Range Interpretation Comments GLUCOMETER (test code = 152 mg/dL 70-100 H Mete r ID: GMG) [id number] tor: 9804 CONCHITA S TAINE PRO TIME AND [id number] 06:14:00 Test Item Value Reference Range Interpretation Comments PT (test code = 12.0 s 9.8-13.6 TT) INR (test code = 1.0 INR) INRH (test code = SUGGESTED THERAPEUTIC INRH) RANGE FOR INR: 2.5 - 3.5 For Patients with Prosthetic Valves or Patients with recurrent Thromboembolic Events 2.0 - 3.0 For Most Other Applications PTT (test code = 28.3 s 20.2-38.0 PTT) PTTH (test code = To monitor the PTTH) effectiveness of heparin, we offer the Anti-Xa (Heparin Assay). It can be used for either unfractionated or LMW Heparin. Order Code is ANTI-XA [id number] 05:25:00 Test Item Value Reference Range Interpretation Comments FERRITIN (test code = A19) 166.7 ng/mL 26.0-388.0 COMPREHENSIVE METABOLIC [id number] 05:25:00 Test Item Value Reference Range Interpretation Comments GLUCOSE (test code 131 mg/dL 75-100 H = 06D) SODIUM (test code 140 mmol/L 136-145 = 01A) POTASSIUM (test 3.4 mmol/L 3.6-5.1 L code = 01B) CHLORIDE (test 104 mmol/L 98-107 code = 04A) CO2 (test code = 29 mmol/L 22-32 02A) ANION GAP (test 10.4 mmol/L code = ANG) BUN (test code = 17 mg/dL 7-18 05D) CREATININE (test 0.5 mg/dL 0.7-1.3 L code = 03E) GFR (test code = 142 See_Comment [Automated GFR) mL/min/1.73m\\S\\2 message] e system which generated this result transmit claudio reference range : >=90. The reference range was not used to interpret this result as normal/abnormal . GFR 165 See_Comment [Automated SALVADOREAN (test mL/min/1.73m\\S\\2 message] The code = GFRAA) system which generated this result transmit claudio reference range : >=90. The reference range was not used to interpret this result as normal/abnormal . EGFR (test code = eGFR BY EGFR) CKD-EPI CALCULATION IS NOT RECOMMENDED FOR PATIENTS UNDER 18 YEARS OF AGE. BUN/CREA (test 35 12-20 H code = BCR) CALCIUM (test code 9.1 mg/dL 8.3-9.5 = 09D) BILI TOTAL (test 0.4 mg/dL 0.2-1.0 code = 11A) PROTEIN (test code 6.7 g/dL 6.4-8.2 = 07D) ALBUMIN (test code 2.7 g/dL 3.5-4.8 L = 08D) GLOBULIN (test 4.0 g/dL 1.5-3.8 H code = GLB) ALB/GLOB (test 0.7 1.0-2.6 L code = AGRR) ALK PHOS (test 101 IU/L 42-121 code = 35A) AST (test code = 25 IU/L See_Comment [Automated 30A) message] The system which generated this result transmit claudio reference range : <=42. The reference range was not used to interpret this result as normal/abnormal . ALT (test code = 69 IU/L See_Comment [Automated 31A) message] The system which generated this result transmit claudio reference range : <=78. The reference range was not used to interpret this result as normal/abnormal . [id number] 05:17:00 Test Item Value Reference Range Interpretation Comments MAGNESIUM (test code = 48A) 2.0 mg/dL 1.8-2.4 GLUCOMETER GLUCOSE- LAB USE [id number] 05:14:00 Test Item Value Reference Range Interpretation Comments GLUCOMETER (test code 125 mg/dL 70-100 H CLEANE D METERMeter ID: = GMG) [id number] tor: [id number] LESLIE WAR A CBC (INCLUDES AUTOMATED DIFFERENTIAL)2020-05-26 05:12:00 Test Item Value Reference Range Interpretation Comments WBC (test code = WBC) 12.3 10\\S\\3/uL 4.5-11.0 H RBC (test code = RBC) 3.88 10\\S\\6/uL 4.30-5.70 L HGB (test code = HBG) 11.7 g/dL 14.0-18.0 L HCT (test code = HCT) 36.0 % 35.0-46.0 MCV (test code = MCV) 92.8 fL 80.0-94.0 MCH (test code = MCH) 30.2 pg 27.0-31.0 MCHC (test code = MCHC) 32.5 g/dL 32.0-36.0 RDW (test code = RDW) 13.6 % 11.5-14.5 PLT (test code = PLT) 313 10\\S\\3/uL 130-400 MPV (test code = MPV) 9.1 fL 9.4-12.4 L NEUTROP # (test code = NE#) 8.9 10\\S\\3/uL 2.0-8.0 H LYMPH # (test code = LY#) 1.8 10\\S\\3/uL 1.2-4.0 MONOCYTE # (test code = MO#) 1.1 10\\S\\3/uL 0.0-1.1 EOSINOPH # (test code = EO#) 0.2 10\\S\\3/uL 0.0-0.7 BASOPHIL # (test code = BA#) 0.1 10\\S\\3/uL 0.0-0.3 IG # (test code = IG#) 0.14 10\\S\\3/uL 0.00-0.06 H NRBC # (test code = NRBC#) 0.00 10\\S\\3/uL 0.00-0.01 NEUTROPH % (test code = NE%) 72.7 % 35.0-73.0 LYMPH % (test code = LY%) 14.8 % 20.0-55.0 L MONO % (test code = MO%) 9.2 % 2.5-10.0 EOSINOPH % (test code = EO%) 1.5 % 0.0-5.0 BASOPHIL % (test code = BA%) 0.7 % 0.0-2.0 IG % (test code = IG%) 1.1 % 0.0-0.8 H NRBC% (test code = NRBC%) 0.0 % 0.0-0.2 MANDIFF (test code = MDIFF) NO NO RBC MORPH (test code = RBCMOR) NORMAL GLUCOMETER GLUCOSE- LAB USE [id number] 23:18:00 Test Item Value Reference Range Interpretation Comments GLUCOMETER (test code 113 mg/dL 70-100 H CLEANE D METERMeter ID: = GMG) [id number] tor: 5533 LESLIE CUEVAS A GLUCOMETER GLUCOSE- LAB USE [id number] 17:23:00 Test Item Value Reference Range Interpretation Comments GLUCOMETER (test code = 137 mg/dL 70-100 H Mete r ID: GMG) [id number] tor: [id number] RAINI BUT LER GLUCOMETER GLUCOSE- LAB USE [id number] 11:50:00 Test Item Value Reference Range Interpretation Comments GLUCOMETER (test code = 132 mg/dL 70-100 H Mete r ID: GMG) [id number] tor: [id number] RAINI BUT LER RESPIRATORY & GRAM STAIN [id number] 08:31:00 Test Item Value Reference Range Interpretation Comments Culture Observations NORMAL RESPIRATORY (test code = COB1) STACY Direct Exam (test code MODERATE WHITE BLOOD = DE1) CELLS SEEN Direct Exam (test code FEW GRAM POSITIVE = DE2) COCCI Direct Exam (test code RARE EPITHELIAL CELLS = DE3) SEEN Isolate 1 (test code = Enterobacter aerogenes ISO1) piperacillin/tazobactam S (test code = tzp) ceftazidime (test code S = frederick) ceftriaxone1 (test code S = ctr) cefepime (test code = S fep) aztreonam (test code = S azm) ertapenem (test code = S etp) meropenem (test code = S mem) gentamicin (test code = S gm) tobramycin (test code = S tob) levofloxacin (test code S = lev) trimethoprim/sulfametho S xazole (test code = sxt) Isolate 2 (test code = Danielle albicans A ISO2) Arterial Blood [id number] 04:56:00 Test Item Value Reference Range Interpretation Comments pH (test code = PHRT) 7.456 7.350-7.450 H pCO2 (test code = 36.0 mmHg 35.0-45.0 PCO2RT) pO2 (test code = 73.9 mmHg 80.0-110.0 L PO2RT) HCO3? (test code = 25.0 mmol/L 22.0-26.0 HCO3) HOLLY (test code = HOLLY) 1.8 mmol/L -3.0-3.0 tHb (test code = 12.5 g/dL 14.0-18.0 L THBRT) sO2 (test code = 94.5 % 92.0-100.0 SO2RT) FO2Hb (test code = 92.3 % 94.0-100.0 L QN7PMZT) FCOHb (test code = 1.0 % 0.0-3.0 FCOHBRT) FMetHb (test code = 1.2 % 0.2-0.6 H FMETHBRT) ABGTEMP (test code = * Temp Corrected Values* ABGTEMP) ABGTEMP (test code = 37.0 ?C ABGTEMP.) pH (T) (test code = 7.456 7.350-7.450 H PHTEMP) pCO2 (T) (test code = 36.0 mmHg 35.0-45.0 XHN3PACG) pO2 (T) (test code = 73.9 mmHg 80.0-110.0 L OY1DJEX) Device (test code = VENTILATOR DEVICE) FI02 (test code = 40.0 % FI02) Liter_flow (test code = LF) VENPAR (test code = * Ventilator Parameters VENPAR) * SIMV (test code = 6 SIMV) A/C (test code = A/C) CPAP (test code = CPAP) PEEP (test code = 5.0 PEEP) PS (test code = PS) 12 PIP (test code = PIP) I_Time (test code = ITIME) Vt (test code = VT) 650 BIPAP INSP (test code = BIPAPINP) BIPAP EXP (test code = BIPAPEXP) Cecilio test (test code Positive = ATEST) SAMPLE SITE (test Left Radial Artery code = SSITE) COMMENT (test code = CO) CBC (INCLUDES AUTOMATED DIFFERENTIAL)2020-05-25 04:40:00 Test Item Value Reference Range Interpretation Comments WBC (test code = WBC) 14.1 10\\S\\3/uL 4.5-11.0 H RBC (test code = RBC) 3.92 10\\S\\6/uL 4.30-5.70 L HGB (test code = HBG) 11.7 g/dL 14.0-18.0 L HCT (test code = HCT) 35.9 % 35.0-46.0 MCV (test code = MCV) 91.6 fL 80.0-94.0 MCH (test code = MCH) 29.8 pg 27.0-31.0 MCHC (test code = MCHC) 32.6 g/dL 32.0-36.0 RDW (test code = RDW) 14.0 % 11.5-14.5 PLT (test code = PLT) 313 10\\S\\3/uL 130-400 MPV (test code = MPV) 9.1 fL 9.4-12.4 L NEUTROP # (test code = NE#) 10.5 10\\S\\3/uL 2.0-8.0 H LYMPH # (test code = LY#) 2.3 10\\S\\3/uL 1.2-4.0 MONOCYTE # (test code = MO#) 0.9 10\\S\\3/uL 0.0-1.1 EOSINOPH # (test code = EO#) 0.2 10\\S\\3/uL 0.0-0.7 BASOPHIL # (test code = BA#) 0.1 10\\S\\3/uL 0.0-0.3 IG # (test code = IG#) 0.18 10\\S\\3/uL 0.00-0.06 H NRBC # (test code = NRBC#) 0.00 10\\S\\3/uL 0.00-0.01 NEUTROPH % (test code = NE%) 74.2 % 35.0-73.0 H LYMPH % (test code = LY%) 16.6 % 20.0-55.0 L MONO % (test code = MO%) 6.2 % 2.5-10.0 EOSINOPH % (test code = EO%) 1.1 % 0.0-5.0 BASOPHIL % (test code = BA%) 0.6 % 0.0-2.0 IG % (test code = IG%) 1.3 % 0.0-0.8 H NRBC% (test code = NRBC%) 0.0 % 0.0-0.2 MANDIFF (test code = MDIFF) NO NO RBC MORPH (test code = RBCMOR) NORMAL COMPREHENSIVE METABOLIC [id number] 04:37:00 Test Item Value Reference Range Interpretation Comments GLUCOSE (test code 118 mg/dL 75-100 H = 06D) SODIUM (test code 140 mmol/L 136-145 = 01A) POTASSIUM (test 3.4 mmol/L 3.6-5.1 L code = 01B) CHLORIDE (test 105 mmol/L 98-107 code = 04A) CO2 (test code = 27 mmol/L 22-32 02A) ANION GAP (test 11.4 mmol/L code = ANG) BUN (test code = 19 mg/dL 7-18 H 05D) CREATININE (test 0.4 mg/dL 0.7-1.3 L code = 03E) GFR (test code = 152 See_Comment [Automated GFR) mL/min/1.73m\\S\\2 message] Th e system which generated this result transmit claudio reference range : >=90. The reference range was not used to interpret this result as normal/abnormal . GFR 177 See_Comment [Automated SALVADOREAN (test mL/min/1.73m\\S\\2 message] The code = GFRAA) system which generated this result transmit claudio reference range : >=90. The reference range was not used to interpret this result as normal/abnormal . EGFR (test code = eGFR BY EGFR) CKD-EPI CALCULATION IS NOT RECOMMENDED FOR PATIENTS UNDER 18 YEARS OF AGE. BUN/CREA (test 47 12-20 H code = BCR) CALCIUM (test code 8.7 mg/dL 8.3-9.5 = 09D) BILI TOTAL (test 0.4 mg/dL 0.2-1.0 code = 11A) PROTEIN (test code 6.5 g/dL 6.4-8.2 = 07D) ALBUMIN (test code 2.7 g/dL 3.5-4.8 L = 08D) GLOBULIN (test 3.8 g/dL 1.5-3.8 code = GLB) ALB/GLOB (test 0.7 1.0-2.6 L code = AGRR) ALK PHOS (test 89 IU/L 42-121 code = 35A) AST (test code = 29 IU/L See_Comment [Automated 30A) message] The system which generated this result transmit claudio reference range : <=42. The reference range was not used to interpret this result as normal/abnormal . ALT (test code = 76 IU/L See_Comment [Automated 31A) message] The system which generated this result transmit claudio reference range : <=78. The reference range was not used to interpret this result as normal/abnormal . [id number] 04:32:00 Test Item Value Reference Range Interpretation Comments MAGNESIUM (test code = 48A) 1.9 mg/dL 1.8-2.4 GLUCOMETER GLUCOSE- LAB USE [id number] 23:54:00 Test Item Value Reference Range Interpretation Comments GLUCOMETER (test code 105 mg/dL 70-100 H CLEANE D METERMeter ID: = GMG) [id number] tor: [id number] T [place]AS GLUCOMETER GLUCOSE- LAB USE [id number] 17:35:00 Test Item Value Reference Range Interpretation Comments GLUCOMETER (test code = 115 mg/dL 70-100 H Mete r ID: GMG) [id number] tor: [id number] O GLUCOMETER GLUCOSE- LAB USE [id number] 11:56:00 Test Item Value Reference Range Interpretation Comments GLUCOMETER (test code = 145 mg/dL 70-100 H Mete r ID: GMG) [id number] tor: [address] TROPONIN [id number] 06:27:00 Test Item Value Reference Range Interpretation Comments TROPONIN I (test code = A84) <0.015 ng/mL 0.000-0.045 [id number] 06:26:00 Test Item Value Reference Range Interpretation Comments FERRITIN (test code = A19) 168.9 ng/mL 26.0-388.0 LDH-LACTIC [id number] 06:26:00 Test Item Value Reference Range Interpretation Comments LDH (test code = 33A) 231 IU/L 100-190 H LDH-LACTIC [id number] 06:26:00 Test Item Value Reference Range Interpretation Comments LDH (test code = 33A) 268 IU/L 100-190 H COMPREHENSIVE METABOLIC [id number] 06:21:00 Test Item Value Reference Range Interpretation Comments GLUCOSE (test code 119 mg/dL 75-100 H = 06D) SODIUM (test code 138 mmol/L 136-145 = 01A) POTASSIUM (test 3.3 mmol/L 3.6-5.1 L code = 01B) CHLORIDE (test 105 mmol/L 98-107 code = 04A) CO2 (test code = 27 mmol/L 22-32 02A) ANION GAP (test 9.3 mmol/L code = ANG) BUN (test code = 22 mg/dL 7-18 H 05D) CREATININE (test 0.5 mg/dL 0.7-1.3 L code = 03E) GFR (test code = 139 See_Comment [Automated GFR) mL/min/1.73m\\S\\2 message] Th e system which generated this result transmit claudio reference range : >=90. The reference range was not used to interpret this result as normal/abnormal . GFR 161 See_Comment [Automated SALVADOREAN (test mL/min/1.73m\\S\\2 message] The code = GFRAA) system which generated this result transmit claudio reference range : >=90. The reference range was not used to interpret this result as normal/abnormal . EGFR (test code = eGFR BY EGFR) CKD-EPI CALCULATION IS NOT RECOMMENDED FOR PATIENTS UNDER 18 YEARS OF AGE. BUN/CREA (test 44 12-20 H code = BCR) CALCIUM (test code 8.8 mg/dL 8.3-9.5 = 09D) BILI TOTAL (test 0.8 mg/dL 0.2-1.0 code = 11A) PROTEIN (test code 6.6 g/dL 6.4-8.2 = 07D) ALBUMIN (test code 2.8 g/dL 3.5-4.8 L = 08D) GLOBULIN (test 3.8 g/dL 1.5-3.8 code = GLB) ALB/GLOB (test 0.7 1.0-2.6 L code = AGRR) ALK PHOS (test 94 IU/L 42-121 code = 35A) AST (test code = 34 IU/L See_Comment [Automated 30A) message] The system which generated this result transmit claudio reference range : <=42. The reference range was not used to interpret this result as normal/abnormal . ALT (test code = 83 IU/L See_Comment H [Automated 31A) message] The system which generated this result transmit claudio reference range : <=78. The reference range was not used to interpret this result as normal/abnormal . [id number] 06:19:00 Test Item Value Reference Range Interpretation Comments MAGNESIUM (test code = 48A) 2.2 mg/dL 1.8-2.4 C-REACTIVE PROTEIN [id number] 06:16:00 Test Item Value Reference Range Interpretation Comments CRP QUANT (test code 4.2 mg/L 0.0-2.9 H = CRPQ) Method Change (test Please note the code = METHOD) change in Method and the reference range [id number] 06:01:00 Test Item Value Reference Range Interpretation Comments D-DIMER (test code = 229 ng/mL D-DU 0-234 DDI) D-DIMER COMMENT (test *Level to rule out code = DDCOM) DVT or PE: <235 ng/mL D-DU* PRO TIME AND [id number] 06:01:00 Test Item Value Reference Range Interpretation Comments PT (test code = 11.0 s 9.8-13.6 TT) INR (test code = 1.0 INR) INRH (test code = SUGGESTED THERAPEUTIC INRH) RANGE FOR INR: 2.5 - 3.5 For Patients with Prosthetic Valves or Patients with recurrent Thromboembolic Events 2.0 - 3.0 For Most Other Applications PTT (test code = 19.0 s 20.2-38.0 L PTT) PTTH (test code = To monitor the PTTH) effectiveness of heparin, we offer the Anti-Xa (Heparin Assay). It can be used for either unfractionated or LMW Heparin. Order Code is ANTI-XA CBC (INCLUDES AUTOMATED DIFFERENTIAL)2020-05-24 05:41:00 Test Item Value Reference Range Interpretation Comments WBC (test code = WBC) 14.3 10\\S\\3/uL 4.5-11.0 H RBC (test code = RBC) 3.90 10\\S\\6/uL 4.30-5.70 L HGB (test code = HBG) 11.5 g/dL 14.0-18.0 L HCT (test code = HCT) 36.5 % 35.0-46.0 MCV (test code = MCV) 93.6 fL 80.0-94.0 MCH (test code = MCH) 29.5 pg 27.0-31.0 MCHC (test code = MCHC) 31.5 g/dL 32.0-36.0 L RDW (test code = RDW) 13.7 % 11.5-14.5 PLT (test code = PLT) 325 10\\S\\3/uL 130-400 MPV (test code = MPV) 9.3 fL 9.4-12.4 L NEUTROP # (test code = NE#) 9.6 10\\S\\3/uL 2.0-8.0 H LYMPH # (test code = LY#) 3.3 10\\S\\3/uL 1.2-4.0 MONOCYTE # (test code = MO#) 0.8 10\\S\\3/uL 0.0-1.1 EOSINOPH # (test code = EO#) 0.2 10\\S\\3/uL 0.0-0.7 BASOPHIL # (test code = BA#) 0.1 10\\S\\3/uL 0.0-0.3 IG # (test code = IG#) 0.26 10\\S\\3/uL 0.00-0.06 H NRBC # (test code = NRBC#) 0.00 10\\S\\3/uL 0.00-0.01 NEUTROPH % (test code = NE%) 67.1 % 35.0-73.0 LYMPH % (test code = LY%) 23.2 % 20.0-55.0 MONO % (test code = MO%) 5.8 % 2.5-10.0 EOSINOPH % (test code = EO%) 1.5 % 0.0-5.0 BASOPHIL % (test code = BA%) 0.6 % 0.0-2.0 IG % (test code = IG%) 1.8 % 0.0-0.8 H NRBC% (test code = NRBC%) 0.0 % 0.0-0.2 MANDIFF (test code = MDIFF) NO NO Arterial Blood [id number] 04:36:00 Test Item Value Reference Range Interpretation Comments pH (test code = PHRT) 7.445 7.350-7.450 pCO2 (test code = 37.9 mmHg 35.0-45.0 PCO2RT) pO2 (test code = 82.2 mmHg 80.0-110.0 PO2RT) HCO3? (test code = 25.6 mmol/L 22.0-26.0 HCO3) HOLLY (test code = HOLLY) 2.1 mmol/L -3.0-3.0 tHb (test code = 12.5 g/dL 14.0-18.0 L THBRT) sO2 (test code = 95.6 % 92.0-100.0 SO2RT) FO2Hb (test code = 93.6 % 94.0-100.0 L [id number]) FCOHb (test code = 1.0 % 0.0-3.0 FCOHBRT) FMetHb (test code = 1.1 % 0.2-0.6 H FMETHBRT) ABGTEMP (test code = * Temp Corrected Values* ABGTEMP) ABGTEMP (test code = 37.0 ?C ABGTEMP.) pH (T) (test code = 7.445 7.350-7.450 PHTEMP) pCO2 (T) (test code = 37.9 mmHg 35.0-45.0 [id number]) pO2 (T) (test code = 82.2 mmHg 80.0-110.0 [id number]) Device (test code = VENTILATOR DEVICE) FI02 (test code = 40.0 % FI02) Liter_flow (test code = LF) VENPAR (test code = * Ventilator Parameters VENPAR) * SIMV (test code = 6 SIMV) A/C (test code = A/C) CPAP (test code = CPAP) PEEP (test code = 5.0 PEEP) PS (test code = PS) 12 PIP (test code = PIP) I_Time (test code = ITIME) Vt (test code = VT) 650 BIPAP INSP (test code = BIPAPINP) BIPAP EXP (test code = BIPAPEXP) Cecilio test (test code Positive = ATEST) SAMPLE SITE (test Right Radial Artery code = SSITE) COMMENT (test code = CO) GLUCOMETER GLUCOSE- LAB USE [id number] 23:40:00 Test Item Value Reference Range Interpretation Comments GLUCOMETER (test code = 98 mg/dL 70-100 PAPI SILVIA METERMeter ID: GMG) [id number] tor: [id number] JEROME Cohen HOMAS GLUCOMETER GLUCOSE- LAB USE [id number] 17:41:00 Test Item Value Reference Range Interpretation Comments GLUCOMETER (test code = 117 mg/dL 70-100 H Mete r ID: [facility] [place]) [id number] tor: [id number] FRANCIS MIRT O GLUCOMETER GLUCOSE- LAB USE [id number] 12:02:00 Test Item Value Reference Range Interpretation Comments GLUCOMETER (test code = 164 mg/dL 70-100 H Mete r ID: ARIN) [id number] tor: [id number] FRANCIS MIRT O DILANTIN (PHENYTOIN) [id number] 11:07:00 Test Item Value Reference Range Interpretation Comments PHENYTOIN (test code = 68C) 11.4 ug/mL 10.0-20.0 COMPREHENSIVE METABOLIC [id number] 05:49:00 Test Item Value Reference Range Interpretation Comments GLUCOSE (test code 116 mg/dL 75-100 H = 06D) SODIUM (test code 139 mmol/L 136-145 = 01A) POTASSIUM (test 3.5 mmol/L 3.6-5.1 L code = 01B) CHLORIDE (test 106 mmol/L 98-107 code = 04A) CO2 (test code = 27 mmol/L 22-32 02A) ANION GAP (test 9.5 mmol/L code = ANG) BUN (test code = 19 mg/dL 7-18 H 05D) CREATININE (test 0.6 mg/dL 0.7-1.3 L code = 03E) GFR (test code = 134 See_Comment [Automated GFR) mL/min/1.73m\\S\\2 message] Th e system which generated this result transmit claudio reference range : >=90. The reference range was not used to interpret this result as normal/abnormal . GFR 155 See_Comment [Automated SALVADOREAN (test mL/min/1.73m\\S\\2 message] The code = GFRAA) system which generated this result transmit claudio reference range : >=90. The reference range was not used to interpret this result as normal/abnormal . EGFR (test code = eGFR BY EGFR) CKD-EPI CALCULATION IS NOT RECOMMENDED FOR PATIENTS UNDER 18 YEARS OF AGE. BUN/CREA (test 34 12-20 H code = BCR) CALCIUM (test code 8.8 mg/dL 8.3-9.5 = 09D) BILI TOTAL (test 0.2 mg/dL 0.2-1.0 code = 11A) PROTEIN (test code 6.7 g/dL 6.4-8.2 = 07D) ALBUMIN (test code 2.9 g/dL 3.5-4.8 L = 08D) GLOBULIN (test 3.8 g/dL 1.5-3.8 code = GLB) ALB/GLOB (test 0.8 1.0-2.6 L code = AGRR) ALK PHOS (test 97 IU/L 42-121 code = 35A) AST (test code = 32 IU/L See_Comment [Automated 30A) message] The system which generated this result transmit claudio reference range : <=42. The reference range was not used to interpret this result as normal/abnormal . ALT (test code = 91 IU/L See_Comment H [Automated 31A) message] The system which generated this result transmit claudio reference range : <=78. The reference range was not used to interpret this result as normal/abnormal . LDH-LACTIC [id number] 05:49:00 Test Item Value Reference Range Interpretation Comments LDH (test code = 33A) 268 IU/L 100-190 H [id number] 05:49:00 Test Item Value Reference Range Interpretation Comments MAGNESIUM (test code = 48A) 2.0 mg/dL 1.8-2.4 GLUCOMETER GLUCOSE- LAB USE [id number] 05:37:00 Test Item Value Reference Range Interpretation Comments GLUCOMETER (test code = 68 mg/dL 70-100 L PAPI VEGA METERMeter ID: GMG) [id number] tor: [id number] EBONI BLACKMONGEORGIANACherry CBC (INCLUDES AUTOMATED DIFFERENTIAL)2020-05-23 05:33:00 Test Item Value Reference Range Interpretation Comments WBC (test code = WBC) 18.5 10\\S\\3/uL 4.5-11.0 H RBC (test code = RBC) 3.99 10\\S\\6/uL 4.30-5.70 L HGB (test code = HBG) 11.9 g/dL 14.0-18.0 L HCT (test code = HCT) 37.0 % 35.0-46.0 MCV (test code = MCV) 92.7 fL 80.0-94.0 MCH (test code = MCH) 29.8 pg 27.0-31.0 MCHC (test code = MCHC) 32.2 g/dL 32.0-36.0 RDW (test code = RDW) 13.6 % 11.5-14.5 PLT (test code = PLT) 361 10\\S\\3/uL 130-400 MPV (test code = MPV) 9.1 fL 9.4-12.4 L NEUTROP # (test code = NE#) 12.8 10\\S\\3/uL 2.0-8.0 H LYMPH # (test code = LY#) 4.1 10\\S\\3/uL 1.2-4.0 H MONOCYTE # (test code = MO#) 0.9 10\\S\\3/uL 0.0-1.1 EOSINOPH # (test code = EO#) 0.2 10\\S\\3/uL 0.0-0.7 BASOPHIL # (test code = BA#) 0.1 10\\S\\3/uL 0.0-0.3 IG # (test code = IG#) 0.42 10\\S\\3/uL 0.00-0.06 H NRBC # (test code = NRBC#) 0.00 10\\S\\3/uL 0.00-0.01 NEUTROPH % (test code = NE%) 68.9 % 35.0-73.0 LYMPH % (test code = LY%) 22.3 % 20.0-55.0 MONO % (test code = MO%) 4.8 % 2.5-10.0 EOSINOPH % (test code = EO%) 1.0 % 0.0-5.0 BASOPHIL % (test code = BA%) 0.7 % 0.0-2.0 IG % (test code = IG%) 2.3 % 0.0-0.8 H NRBC% (test code = NRBC%) 0.0 % 0.0-0.2 MANDIFF (test code = MDIFF) NO NO RBC MORPH (test code = RBCMOR) NORMAL Arterial Blood [id number] 05:03:00 Test Item Value Reference Range Interpretation Comments pH (test code = PHRT) 7.459 7.350-7.450 H pCO2 (test code = 36.3 mmHg 35.0-45.0 PCO2RT) pO2 (test code = 74.9 mmHg 80.0-110.0 L PO2RT) HCO3? (test code = 25.4 mmol/L 22.0-26.0 HCO3) HOLLY (test code = HOLLY) 2.2 mmol/L -3.0-3.0 tHb (test code = 13.2 g/dL 14.0-18.0 L THBRT) sO2 (test code = 93.7 % 92.0-100.0 SO2RT) FO2Hb (test code = 91.7 % 94.0-100.0 L [id number]) FCOHb (test code = 0.9 % 0.0-3.0 FCOHBRT) FMetHb (test code = 1.3 % 0.2-0.6 H FMETHBRT) ABGTEMP (test code = * Temp Corrected Values* ABGTEMP) ABGTEMP (test code = 37.0 ?C ABGTEMP.) pH (T) (test code = 7.459 7.350-7.450 H PHTEMP) pCO2 (T) (test code = 36.3 mmHg 35.0-45.0 [id number]) pO2 (T) (test code = 74.9 mmHg 80.0-110.0 L [id number]) Device (test code = VENTILATOR DEVICE) FI02 (test code = 40.0 % FI02) Liter_flow (test code = LF) VENPAR (test code = * Ventilator Parameters VENPAR) * SIMV (test code = 6 SIMV) A/C (test code = A/C) CPAP (test code = CPAP) PEEP (test code = 5.0 PEEP) PS (test code = PS) 12 PIP (test code = PIP) I_Time (test code = ITIME) Vt (test code = VT) 650 BIPAP INSP (test code = BIPAPINP) BIPAP EXP (test code = BIPAPEXP) Cecilio test (test code Positive = ATEST) SAMPLE SITE (test Right Radial Artery code = SSITE) COMMENT (test code = CO) GLUCOMETER GLUCOSE- LAB USE [id number] 23:16:00 Test Item Value Reference Range Interpretation Comments GLUCOMETER (test code 100 mg/dL 70-100 CLEANE D METERMeter ID: = GMG) [id number] tor: [id number] EBONI LUNA GLUCOMETER GLUCOSE- LAB USE [id number] 17:21:00 Test Item Value Reference Range Interpretation Comments GLUCOMETER (test code = 109 mg/dL 70-100 H Mete r ID: GMG) [id number] tor: [id number] RAINI BUT LER GLUCOMETER GLUCOSE- LAB USE [id number] 12:06:00 Test Item Value Reference Range Interpretation Comments GLUCOMETER (test code = 147 mg/dL 70-100 H Mete r ID: GMG) [id number] tor: [id number] RAINI BUT LER GLUCOMETER GLUCOSE- LAB USE [id number] 11:43:00 Test Item Value Reference Range Interpretation Comments GLUCOMETER (test code = 151 mg/dL 70-100 H Mete r ID: GMG) [id number] tor: [id number] RAINI BUT LER [id number] 06:52:00 Test Item Value Reference Range Interpretation Comments MAGNESIUM (test code = 48A) 2.3 mg/dL 1.8-2.4 C-REACTIVE PROTEIN [id number] 06:34:00 Test Item Value Reference Range Interpretation Comments CRP QUANT (test code <2.9 mg/L 0.0-2.9 = CRPQ) Method Change (test Please note the code = METHOD) change in Method and the reference range TROPONIN [id number] 06:23:00 Test Item Value Reference Range Interpretation Comments TROPONIN I (test code = A84) <0.015 ng/mL 0.000-0.045 LDH-LACTIC [id number] 06:14:00 Test Item Value Reference Range Interpretation Comments LDH (test code = 33A) 242 IU/L 100-190 H [id number] 06:14:00 Test Item Value Reference Range Interpretation Comments FERRITIN (test code = A19) 197.2 ng/mL 26.0-388.0 COMPREHENSIVE METABOLIC [id number] 06:14:00 Test Item Value Reference Range Interpretation Comments GLUCOSE (test code 111 mg/dL 75-100 H = 06D) SODIUM (test code 140 mmol/L 136-145 = 01A) POTASSIUM (test 3.4 mmol/L 3.6-5.1 L code = 01B) CHLORIDE (test 107 mmol/L 98-107 code = 04A) CO2 (test code = 25 mmol/L 22-32 02A) ANION GAP (test 11.4 mmol/L code = ANG) BUN (test code = 19 mg/dL 7-18 H 05D) CREATININE (test 0.6 mg/dL 0.7-1.3 L code = 03E) GFR (test code = 129 See_Comment [Automated GFR) mL/min/1.73m\\S\\2 message] Th e system which generated this result transmit claudio reference range : >=90. The reference range was not used to interpret this result as normal/abnormal . GFR 149 See_Comment [Automated SALVADOREAN (test mL/min/1.73m\\S\\2 message] The code = GFRAA) system which generated this result transmit claudio reference range : >=90. The reference range was not used to interpret this result as normal/abnormal . EGFR (test code = eGFR BY EGFR) CKD-EPI CALCULATION IS NOT RECOMMENDED FOR PATIENTS UNDER 18 YEARS OF AGE. BUN/CREA (test 31 12-20 H code = BCR) CALCIUM (test code 8.6 mg/dL 8.3-9.5 = 09D) BILI TOTAL (test 0.3 mg/dL 0.2-1.0 code = 11A) PROTEIN (test code 6.3 g/dL 6.4-8.2 L = 07D) ALBUMIN (test code 2.8 g/dL 3.5-4.8 L = 08D) GLOBULIN (test 3.5 g/dL 1.5-3.8 code = GLB) ALB/GLOB (test 0.8 1.0-2.6 L code = AGRR) ALK PHOS (test 80 IU/L 42-121 code = 35A) AST (test code = 37 IU/L See_Comment [Automated 30A) message] The system which generated this result transmit claudio reference range : <=42. The reference range was not used to interpret this result as normal/abnormal . ALT (test code = 99 IU/L See_Comment H [Automated 31A) message] The system which generated this result transmit claudio reference range : <=78. The reference range was not used to interpret this result as normal/abnormal . [id number] 05:35:00 Test Item Value Reference Range Interpretation Comments D-DIMER (test code = 290 ng/mL D-DU 0-234 H DDI) D-DIMER COMMENT (test *Level to rule out code = DDCOM) DVT or PE: <235 ng/mL D-DU* PRO TIME AND [id number] 05:35:00 Test Item Value Reference Range Interpretation Comments PT (test code = 10.9 s 9.8-13.6 TT) INR (test code = 1.0 INR) INRH (test code = SUGGESTED THERAPEUTIC INRH) RANGE FOR INR: 2.5 - 3.5 For Patients with Prosthetic Valves or Patients with recurrent Thromboembolic Events 2.0 - 3.0 For Most Other Applications PTT (test code = 27.4 s 20.2-38.0 PTT) PTTH (test code = To monitor the PTTH) effectiveness of heparin, we offer the Anti-Xa (Heparin Assay). It can be used for either unfractionated or LMW Heparin. Order Code is ANTI-XA CBC (INCLUDES AUTOMATED DIFFERENTIAL)2020-05-22 05:25:00 Test Item Value Reference Range Interpretation Comments WBC (test code = WBC) 14.2 10\\S\\3/uL 4.5-11.0 H RBC (test code = RBC) 3.93 10\\S\\6/uL 4.30-5.70 L HGB (test code = HBG) 11.6 g/dL 14.0-18.0 L HCT (test code = HCT) 35.9 % 35.0-46.0 MCV (test code = MCV) 91.3 fL 80.0-94.0 MCH (test code = MCH) 29.5 pg 27.0-31.0 MCHC (test code = MCHC) 32.3 g/dL 32.0-36.0 RDW (test code = RDW) 13.8 % 11.5-14.5 PLT (test code = PLT) 323 10\\S\\3/uL 130-400 MPV (test code = MPV) 9.4 fL 9.4-12.4 NEUTROP # (test code = NE#) 8.6 10\\S\\3/uL 2.0-8.0 H LYMPH # (test code = LY#) 4.3 10\\S\\3/uL 1.2-4.0 H MONOCYTE # (test code = MO#) 0.8 10\\S\\3/uL 0.0-1.1 EOSINOPH # (test code = EO#) 0.2 10\\S\\3/uL 0.0-0.7 BASOPHIL # (test code = BA#) 0.1 10\\S\\3/uL 0.0-0.3 IG # (test code = IG#) 0.34 10\\S\\3/uL 0.00-0.06 H NRBC # (test code = NRBC#) 0.00 10\\S\\3/uL 0.00-0.01 NEUTROPH % (test code = NE%) 60.4 % 35.0-73.0 LYMPH % (test code = LY%) 30.0 % 20.0-55.0 MONO % (test code = MO%) 5.7 % 2.5-10.0 EOSINOPH % (test code = EO%) 1.1 % 0.0-5.0 BASOPHIL % (test code = BA%) 0.4 % 0.0-2.0 IG % (test code = IG%) 2.4 % 0.0-0.8 H NRBC% (test code = NRBC%) 0.0 % 0.0-0.2 MANDIFF (test code = MDIFF) NO NO RBC MORPH (test code = RBCMOR) NORMAL Arterial Blood [id number] 04:53:00 Test Item Value Reference Range Interpretation Comments pH (test code = PHRT) 7.452 7.350-7.450 H pCO2 (test code = 36.2 mmHg 35.0-45.0 PCO2RT) pO2 (test code = 90.0 mmHg 80.0-110.0 PO2RT) HCO3? (test code = 24.9 mmol/L 22.0-26.0 HCO3) HOLLY (test code = HOLLY) 1.7 mmol/L -3.0-3.0 tHb (test code = 14.2 g/dL 14.0-18.0 THBRT) sO2 (test code = 96.3 % 92.0-100.0 SO2RT) FO2Hb (test code = 94.5 % 94.0-100.0 OH7WFCH) FCOHb (test code = 0.6 % 0.0-3.0 FCOHBRT) FMetHb (test code = 1.2 % 0.2-0.6 H FMETHBRT) ABGTEMP (test code = * Temp Corrected Values* ABGTEMP) ABGTEMP (test code = 37.0 ?C ABGTEMP.) pH (T) (test code = 7.452 7.350-7.450 H PHTEMP) pCO2 (T) (test code = 36.2 mmHg 35.0-45.0 VPG2XHMC) pO2 (T) (test code = 90.0 mmHg 80.0-110.0 [id number]) Device (test code = VENTILATOR DEVICE) FI02 (test code = 40.0 % FI02) Liter_flow (test code = LF) VENPAR (test code = * Ventilator Parameters VENPAR) * SIMV (test code = 6 SIMV) A/C (test code = A/C) CPAP (test code = CPAP) PEEP (test code = 7.0 PEEP) PS (test code = PS) 12 PIP (test code = PIP) I_Time (test code = ITIME) Vt (test code = VT) 650 BIPAP INSP (test code = BIPAPINP) BIPAP EXP (test code = BIPAPEXP) Cecilio test (test code Positive = ATEST) SAMPLE SITE (test Right Radial Artery code = SSITE) COMMENT (test code = CO) GLUCOMETER GLUCOSE- LAB USE [id number] 23:29:00 Test Item Value Reference Range Interpretation Comments GLUCOMETER (test code 125 mg/dL 70-100 H CLEANE D METERMeter ID: = GMG) [id number] tor: [id number] [facility] METABOLIC [id number] 06:21:00 Test Item Value Reference Range Interpretation Comments GLUCOSE (test code 98 mg/dL 75-100 = 06D) SODIUM (test code 140 mmol/L 136-145 = 01A) POTASSIUM (test 3.4 mmol/L 3.6-5.1 L code = 01B) CHLORIDE (test 107 mmol/L 98-107 code = 04A) CO2 (test code = 24 mmol/L 22-32 02A) ANION GAP (test 12.4 mmol/L code = ANG) BUN (test code = 19 mg/dL 7-18 H 05D) CREATININE (test 0.5 mg/dL 0.7-1.3 L code = 03E) GFR (test code = 138 See_Comment [Automated GFR) mL/min/1.73m\\S\\2 message] Th e system which generated this result transmit claudio reference range : >=90. The reference range was not used to interpret this result as normal/abnormal . GFR 160 See_Comment [Automated SALVADOREAN (test mL/min/1.73m\\S\\2 message] The code = GFRAA) system which generated this result transmit claudio reference range : >=90. The reference range was not used to interpret this result as normal/abnormal . EGFR (test code = eGFR BY EGFR) CKD-EPI CALCULATION IS NOT RECOMMENDED FOR PATIENTS UNDER 18 YEARS OF AGE. BUN/CREA (test 37 12-20 H code = BCR) CALCIUM (test code 8.2 mg/dL 8.3-9.5 L = 09D) BILI TOTAL (test 0.2 mg/dL 0.2-1.0 code = 11A) PROTEIN (test code 5.6 g/dL 6.4-8.2 L = 07D) ALBUMIN (test code 2.5 g/dL 3.5-4.8 L = 08D) GLOBULIN (test 3.1 g/dL 1.5-3.8 code = GLB) ALB/GLOB (test 0.8 1.0-2.6 L code = AGRR) ALK PHOS (test 69 IU/L 42-121 code = 35A) AST (test code = 42 IU/L See_Comment [Automated 30A) message] The system which generated this result transmit claudio reference range : <=42. The reference range was not used to interpret this result as normal/abnormal . ALT (test code = 97 IU/L See_Comment H [Automated 31A) message] The system which generated this result transmit claudio reference range : <=78. The reference range was not used to interpret this result as normal/abnormal . LDH-LACTIC [id number] 06:08:00 Test Item Value Reference Range Interpretation Comments LDH (test code = 33A) 292 IU/L 100-190 H [id number] 06:08:00 Test Item Value Reference Range Interpretation Comments MAGNESIUM (test code = 48A) 2.2 mg/dL 1.8-2.4 CBC (INCLUDES AUTOMATED DIFFERENTIAL)2020-05-21 05:22:00 Test Item Value Reference Range Interpretation Comments WBC (test code = WBC) 13.1 10\\S\\3/uL 4.5-11.0 H RBC (test code = RBC) 3.57 10\\S\\6/uL 4.30-5.70 L HGB (test code = HBG) 10.5 g/dL 14.0-18.0 L HCT (test code = HCT) 33.5 % 35.0-46.0 L MCV (test code = MCV) 93.8 fL 80.0-94.0 MCH (test code = MCH) 29.4 pg 27.0-31.0 MCHC (test code = MCHC) 31.3 g/dL 32.0-36.0 L RDW (test code = RDW) 13.2 % 11.5-14.5 PLT (test code = PLT) 304 10\\S\\3/uL 130-400 MPV (test code = MPV) 9.6 fL 9.4-12.4 NEUTROP # (test code = NE#) 7.7 10\\S\\3/uL 2.0-8.0 LYMPH # (test code = LY#) 4.0 10\\S\\3/uL 1.2-4.0 MONOCYTE # (test code = MO#) 0.9 10\\S\\3/uL 0.0-1.1 EOSINOPH # (test code = EO#) 0.1 10\\S\\3/uL 0.0-0.7 BASOPHIL # (test code = BA#) 0.1 10\\S\\3/uL 0.0-0.3 IG # (test code = IG#) 0.37 10\\S\\3/uL 0.00-0.06 H NRBC # (test code = NRBC#) 0.00 10\\S\\3/uL 0.00-0.01 NEUTROPH % (test code = NE%) 58.3 % 35.0-73.0 LYMPH % (test code = LY%) 30.7 % 20.0-55.0 MONO % (test code = MO%) 6.8 % 2.5-10.0 EOSINOPH % (test code = EO%) 0.9 % 0.0-5.0 BASOPHIL % (test code = BA%) 0.5 % 0.0-2.0 IG % (test code = IG%) 2.8 % 0.0-0.8 H NRBC% (test code = NRBC%) 0.0 % 0.0-0.2 MANDIFF (test code = MDIFF) NO NO RBC MORPH (test code = RBCMOR) NORMAL Arterial Blood [id number] 05:14:00 Test Item Value Reference Range Interpretation Comments pH (test code = PHRT) 7.493 7.350-7.450 H pCO2 (test code = 32.9 mmHg 35.0-45.0 L PCO2RT) pO2 (test code = 89.1 mmHg 80.0-110.0 PO2RT) HCO3? (test code = 25.0 mmol/L 22.0-26.0 HCO3) HOLLY (test code = HOLLY) 2.4 mmol/L -3.0-3.0 tHb (test code = 11.1 g/dL 14.0-18.0 L THBRT) sO2 (test code = 97.3 % 92.0-100.0 SO2RT) FO2Hb (test code = 95.5 % 94.0-100.0 SI7AQVF) FCOHb (test code = 1.3 % 0.0-3.0 FCOHBRT) FMetHb (test code = 0.5 % 0.2-0.6 FMETHBRT) ABGTEMP (test code = * Temp Corrected Values* ABGTEMP) ABGTEMP (test code = 37.0 ?C ABGTEMP.) pH (T) (test code = 7.493 7.350-7.450 H PHTEMP) pCO2 (T) (test code = 32.9 mmHg 35.0-45.0 L [id number]) pO2 (T) (test code = 89.1 mmHg 80.0-110.0 [id number]) Device (test code = VENTILATOR DEVICE) FI02 (test code = 40.0 % FI02) Liter_flow (test code = LF) VENPAR (test code = * Ventilator Parameters VENPAR) * SIMV (test code = 6 SIMV) A/C (test code = A/C) CPAP (test code = CPAP) PEEP (test code = 7.0 PEEP) PS (test code = PS) 12 PIP (test code = PIP) I_Time (test code = ITIME) Vt (test code = VT) 650 BIPAP INSP (test code = BIPAPINP) BIPAP EXP (test code = BIPAPEXP) Cecilio test (test code Positive = ATEST) SAMPLE SITE (test Left Radial Artery code = SSITE) COMMENT (test code = CO) CBC WITH MANUAL [id number] 06:52:00 Test Item Value Reference Range Interpretation Comments WBC (test code = 13.9 10\\S\\3/uL 4.5-11.0 H WBC) RBC (test code = 3.71 10\\S\\6/uL 4.30-5.70 L RBC) HGB (test code = 10.9 g/dL 14.0-18.0 L HBG) HCT (test code = 34.5 % 35.0-46.0 L HCT) MCV (test code = 93.0 fL 80.0-94.0 MCV) MCH (test code = 29.4 pg 27.0-31.0 MCH) MCHC (test code = 31.6 g/dL 32.0-36.0 L MCHC) RDW (test code = 13.2 % 11.5-14.5 RDW) PLT (test code = 346 10\\S\\3/uL 130-400 PLT) MPV (test code = 9.8 fL 9.4-12.4 MPV) NEUTROP # (test 6.9 10\\S\\3/uL 2.0-8.0 code = NE#) LYMPH # (test code 4.8 10\\S\\3/uL 1.2-4.0 H = LY#) MONOCYTE # (test 1.2 10\\S\\3/uL 0.0-1.1 H code = MO#) EOSINOPH # (test 0.1 10\\S\\3/uL 0.0-0.7 code = EO#) BASOPHIL # (test 0.1 10\\S\\3/uL 0.0-0.3 code = BA#) IG # (test code = 0.90 10\\S\\3/uL 0.00-0.06 H IG#) NRBC # (test code 0.02 10\\S\\3/uL 0.00-0.01 H = NRBC#) NEUTROPH % (test 49.5 % 35.0-73.0 code = NE%) LYMPH % (test code 34.3 % 20.0-55.0 = LY%) MONO % (test code 8.3 % 2.5-10.0 = MO%) EOSINOPH % (test 0.7 % 0.0-5.0 code = EO%) BASOPHIL % (test 0.7 % 0.0-2.0 code = BA%) IG % (test code = 6.5 % 0.0-0.8 H IG%) NRBC% (test code = 0.1 % 0.0-0.2 NRBC%) MAN DIFF (test MANUAL code = HMDIFF) DIFFERENTIAL SEG (test code = 86 % 42-75 H SEG) BAND (test code = 4 % 0-8 BAND) LYMPH (test code = 2 % 20-51 L LYMPH) MONO (test code = 6 % 3-11 MONO) EOS (test code = 0 % See_Comment [Automated EOS) message] The sy stem which generated this result transmitted reference range : <=10. The refer ence range was not u sed to interpret th is result as normal/abnormal . BASO (test code = 0 % 0-2 BASO) META (test code = 1 % See_Comment [Automate d META) message] The sy stem which generated this result transmitted reference range : <=1. The refere nce range was not u sed to interpret th is result as normal/abnormal . MYELO (test code = 1 % See_Comment [Automat ed MYELO) message] The sy stem which generated this result transmitted reference range : <=1. The refere nce range was not u sed to interpret th is result as normal/abnormal . RBC MORPH (test ABNORMAL NORMAL A code = RBCMORN) PLT EST (test code ADEQUATE ADEQUATE = PLTEST) PLT MORPH (test NORMAL (1.5-3 um) NORMAL code = PLTMOR) ANISO (test code = 1+ NONE A ANISO) HYPOCHROM (test 1+ NONE A code = HYPOC) C-REACTIVE PROTEIN [id number] 06:17:00 Test Item Value Reference Range Interpretation Comments CRP QUANT (test code <2.9 mg/L 0.0-2.9 = CRPQ) Method Change (test Please note the code = METHOD) change in Method and the reference range LDH-LACTIC [id number] 05:53:00 Test Item Value Reference Range Interpretation Comments LDH (test code = 33A) 312 IU/L 100-190 H COMPREHENSIVE METABOLIC [id number] 05:52:00 Test Item Value Reference Range Interpretation Comments GLUCOSE (test code 108 mg/dL 75-100 H = 06D) SODIUM (test code 137 mmol/L 136-145 = 01A) POTASSIUM (test 3.5 mmol/L 3.6-5.1 L code = 01B) CHLORIDE (test 102 mmol/L 98-107 code = 04A) CO2 (test code = 28 mmol/L 22-32 02A) ANION GAP (test 10.5 mmol/L code = ANG) BUN (test code = 22 mg/dL 7-18 H 05D) CREATININE (test 0.6 mg/dL 0.7-1.3 L code = 03E) GFR (test code = 128 See_Comment [Automated GFR) mL/min/1.73m\\S\\2 message] Th e system which generated this result transmit claudio reference range : >=90. The reference range was not used to interpret this result as normal/abnormal . GFR 149 See_Comment [Automated SALVADOREAN (test mL/min/1.73m\\S\\2 message] The code = GFRAA) system which generated this result transmit claudio reference range : >=90. The reference range was not used to interpret this result as normal/abnormal . EGFR (test code = eGFR BY EGFR) CKD-EPI CALCULATION IS NOT RECOMMENDED FOR PATIENTS UNDER 18 YEARS OF AGE. BUN/CREA (test 36 12-20 H code = BCR) CALCIUM (test code 8.8 mg/dL 8.3-9.5 = 09D) BILI TOTAL (test 0.3 mg/dL 0.2-1.0 code = 11A) PROTEIN (test code 6.2 g/dL 6.4-8.2 L = 07D) ALBUMIN (test code 2.8 g/dL 3.5-4.8 L = 08D) GLOBULIN (test 3.4 g/dL 1.5-3.8 code = GLB) ALB/GLOB (test 0.8 1.0-2.6 L code = AGRR) ALK PHOS (test 89 IU/L 42-121 code = 35A) AST (test code = 47 IU/L See_Comment H [Automated 30A) message] The system which generated this result transmit claudio reference range : <=42. The reference range was not used to interpret this result as normal/abnormal . ALT (test code = 116 IU/L See_Comment H [Automated 31A) message] The system which generated this result transmit claudio reference range : <=78. The reference range was not used to interpret this result as normal/abnormal . LDH-LACTIC [id number] 05:52:00 Test Item Value Reference Range Interpretation Comments LDH (test code = 33A) 301 IU/L 100-190 H [id number] 05:52:00 Test Item Value Reference Range Interpretation Comments FERRITIN (test code = A19) 254.0 ng/mL 26.0-388.0 TROPONIN [id number] 05:52:00 Test Item Value Reference Range Interpretation Comments TROPONIN I (test code = A84) <0.015 ng/mL 0.000-0.045 [id number] 05:51:00 Test Item Value Reference Range Interpretation Comments MAGNESIUM (test code = 48A) 2.2 mg/dL 1.8-2.4 PRO TIME AND [id number] 05:43:00 Test Item Value Reference Range Interpretation Comments PT (test code = 10.8 s 9.8-13.6 TT) INR (test code = 0.9 INR) INRH (test code = SUGGESTED THERAPEUTIC INRH) RANGE FOR INR: 2.5 - 3.5 For Patients with Prosthetic Valves or Patients with recurrent Thromboembolic Events 2.0 - 3.0 For Most Other Applications PTT (test code = 26.0 s 20.2-38.0 PTT) PTTH (test code = To monitor the PTTH) effectiveness of heparin, we offer the Anti-Xa (Heparin Assay). It can be used for either unfractionated or LMW Heparin. Order Code is ANTI-XA [id number] 05:43:00 Test Item Value Reference Range Interpretation Comments D-DIMER (test code = 288 ng/mL D-DU 0-234 H DDI) D-DIMER COMMENT (test *Level to rule out code = DDCOM) DVT or PE: <235 ng/mL D-DU* Arterial Blood [id number] 05:06:00 Test Item Value Reference Range Interpretation Comments pH (test code = PHRT) 7.475 7.350-7.450 H pCO2 (test code = 36.6 mmHg 35.0-45.0 PCO2RT) pO2 (test code = 74.3 mmHg 80.0-110.0 L PO2RT) HCO3? (test code = 26.6 mmol/L 22.0-26.0 H HCO3) HOLLY (test code = HOLLY) 3.4 mmol/L -3.0-3.0 H tHb (test code = 11.4 g/dL 14.0-18.0 L THBRT) sO2 (test code = 94.5 % 92.0-100.0 SO2RT) FO2Hb (test code = 92.8 % 94.0-100.0 L [id number]) FCOHb (test code = 1.2 % 0.0-3.0 FCOHBRT) FMetHb (test code = 0.6 % 0.2-0.6 FMETHBRT) ABGTEMP (test code = * Temp Corrected Values* ABGTEMP) ABGTEMP (test code = 37.0 ?C ABGTEMP.) pH (T) (test code = 7.475 7.350-7.450 H PHTEMP) pCO2 (T) (test code = 36.6 mmHg 35.0-45.0 [id number]) pO2 (T) (test code = 74.3 mmHg 80.0-110.0 L HB1SJNN) Device (test code = VENTILATOR DEVICE) FI02 (test code = 40.0 % FI02) Liter_flow (test code = LF) VENPAR (test code = * Ventilator Parameters VENPAR) * SIMV (test code = 6 SIMV) A/C (test code = A/C) CPAP (test code = CPAP) PEEP (test code = 10.0 PEEP) PS (test code = PS) 12 PIP (test code = PIP) I_Time (test code = ITIME) Vt (test code = VT) 650 BIPAP INSP (test code = BIPAPINP) BIPAP EXP (test code = BIPAPEXP) Cecilio test (test code Positive = ATEST) SAMPLE SITE (test Right Radial Artery code = SSITE) COMMENT (test code = CO) SARS-CoV-2 (MOLECULAR)2020-05-19 11:22:00 Test Item Value Reference Range Interpretation Comments SARS-CoV-2 MOLECULAR NEGATIVE NEGATIVE (test code = WCOV) COVID AG (test code This test has been = COVAGC) marketed under the FDA Emergency Use Authorization (EUA) to meet challenges of the COVID-19 pandemic. The validation standards normally enforced by the FDA and the [employer] ([employer]) are more stringent than those required for this test. Therefore, the result should be interpreted with caution and close attention to other clinical and epidemiological data SARS-CoV (RAPID ANTIGEN)2020-05-19 10:21:00 Test Item Value Reference Range Interpretation Comments SARS-CoV (ANTIGEN) NEGATIVE NEGATIVE (test code = COVAG) COVID AG (test This test has been code = COVAGC) marketed under the FDA Emergency Use Authorization (EUA) to meet challenges of the COVID-19 pandemic. The validation standards normally enforced by the FDA and the [employer] [place] [employer] ([employer]) are more stringent than those required for this test. Therefore, the result should be interpreted with caution and close attention to other clinical and epidemiological data CBC WITH MANUAL [id number] 07:03:00 Test Item Value Reference Range Interpretation Comments WBC (test code = 13.0 10\\S\\3/uL 4.5-11.0 H WBC) RBC (test code = 3.44 10\\S\\6/uL 4.30-5.70 L RBC) HGB (test code = 10.1 g/dL 14.0-18.0 L HBG) HCT (test code = 32.0 % 35.0-46.0 L HCT) MCV (test code = 93.0 fL 80.0-94.0 MCV) MCH (test code = 29.4 pg 27.0-31.0 MCH) MCHC (test code = 31.6 g/dL 32.0-36.0 L MCHC) RDW (test code = 12.9 % 11.5-14.5 RDW) PLT (test code = 314 10\\S\\3/uL 130-400 PLT) MPV (test code = 9.8 fL 9.4-12.4 MPV) NEUTROP # (test 8.8 10\\S\\3/uL 2.0-8.0 H code = NE#) LYMPH # (test code 2.2 10\\S\\3/uL 1.2-4.0 = LY#) MONOCYTE # (test 0.7 10\\S\\3/uL 0.0-1.1 code = MO#) EOSINOPH # (test 0.0 10\\S\\3/uL 0.0-0.7 code = EO#) BASOPHIL # (test 0.1 10\\S\\3/uL 0.0-0.3 code = BA#) IG # (test code = 1.21 10\\S\\3/uL 0.00-0.06 H IG#) NRBC # (test code 0.00 10\\S\\3/uL 0.00-0.01 = NRBC#) NEUTROPH % (test 67.8 % 35.0-73.0 code = NE%) LYMPH % (test code 16.8 % 20.0-55.0 L = LY%) MONO % (test code 5.4 % 2.5-10.0 = MO%) EOSINOPH % (test 0.1 % 0.0-5.0 code = EO%) BASOPHIL % (test 0.6 % 0.0-2.0 code = BA%) IG % (test code = 9.3 % 0.0-0.8 H IG%) NRBC% (test code = 0.0 % 0.0-0.2 NRBC%) MAN DIFF (test MANUAL code = HMDIFF) DIFFERENTIAL SEG (test code = 83 % 42-75 H SEG) BAND (test code = 0 % 0-8 BAND) LYMPH (test code = 13 % 20-51 L LYMPH) MONO (test code = 4 % 3-11 MONO) EOS (test code = 0 % See_Comment [Automated EOS) message] The sy stem which generated this result transmitted reference range : <=10. The refer ence range was not u sed to interpret th is result as normal/abnormal . BASO (test code = 0 % 0-2 BASO) RBC MORPH (test ABNORMAL NORMAL A code = RBCMORN) PLT EST (test code ADEQUATE ADEQUATE = PLTEST) PLT MORPH (test NORMAL (1.5-3 um) NORMAL code = PLTMOR) ANISO (test code = 1+ NONE A ANISO) HYPOCHROM (test 1+ NONE A code = HYPOC) COMPREHENSIVE METABOLIC [id number] 05:28:00 Test Item Value Reference Range Interpretation Comments GLUCOSE (test code 134 mg/dL 75-100 H = 06D) SODIUM (test code 138 mmol/L 136-145 = 01A) POTASSIUM (test 4.0 mmol/L 3.6-5.1 code = 01B) CHLORIDE (test 104 mmol/L 98-107 code = 04A) CO2 (test code = 27 mmol/L 22-32 02A) ANION GAP (test 11.0 mmol/L code = ANG) BUN (test code = 22 mg/dL 7-18 H 05D) CREATININE (test 0.6 mg/dL 0.7-1.3 L code = 03E) GFR (test code = 132 See_Comment [Automated GFR) mL/min/1.73m\\S\\2 message] Th e system which generated this result transmit claudio reference range : >=90. The reference range was not used to interpret this result as normal/abnormal . GFR 153 See_Comment [Automated SALVADOREAN (test mL/min/1.73m\\S\\2 message] The code = GFRAA) system which generated this result transmit claudio reference range : >=90. The reference range was not used to interpret this result as normal/abnormal . EGFR (test code = eGFR BY EGFR) CKD-EPI CALCULATION IS NOT RECOMMENDED FOR PATIENTS UNDER 18 YEARS OF AGE. BUN/CREA (test 38 12-20 H code = BCR) CALCIUM (test code 8.6 mg/dL 8.3-9.5 = 09D) BILI TOTAL (test 0.3 mg/dL 0.2-1.0 code = 11A) PROTEIN (test code 5.8 g/dL 6.4-8.2 L = 07D) ALBUMIN (test code 2.5 g/dL 3.5-4.8 L = 08D) GLOBULIN (test 3.3 g/dL 1.5-3.8 code = GLB) ALB/GLOB (test 0.8 1.0-2.6 L code = AGRR) ALK PHOS (test 75 IU/L 42-121 code = 35A) AST (test code = 54 IU/L See_Comment H [Automated 30A) message] The system which generated this result transmit claudio reference range : <=42. The reference range was not used to interpret this result as normal/abnormal . ALT (test code = 120 IU/L See_Comment H [Automated 31A) message] The system which generated this result transmit claudio reference range : <=78. The reference range was not used to interpret this result as normal/abnormal . LDH-LACTIC [id number] 05:28:00 Test Item Value Reference Range Interpretation Comments LDH (test code = 33A) 295 IU/L 100-190 H [id number] 05:28:00 Test Item Value Reference Range Interpretation Comments MAGNESIUM (test code = 48A) 2.2 mg/dL 1.8-2.4 Arterial Blood [id number] 04:31:00 Test Item Value Reference Range Interpretation Comments pH (test code = PHRT) 7.449 7.350-7.450 pCO2 (test code = 38.4 mmHg 35.0-45.0 PCO2RT) pO2 (test code = 108.0 mmHg 80.0-110.0 PO2RT) HCO3? (test code = 26.2 mmol/L 22.0-26.0 H HCO3) HOLLY (test code = HOLLY) 2.6 mmol/L -3.0-3.0 tHb (test code = 10.7 g/dL 14.0-18.0 L THBRT) sO2 (test code = 98.4 % 92.0-100.0 SO2RT) FO2Hb (test code = 96.5 % 94.0-100.0 EL5YPCD) FCOHb (test code = 1.2 % 0.0-3.0 FCOHBRT) FMetHb (test code = 0.7 % 0.2-0.6 H FMETHBRT) ABGTEMP (test code = * Temp Corrected Values* ABGTEMP) ABGTEMP (test code = 37.0 ?C ABGTEMP.) pH (T) (test code = 7.449 7.350-7.450 PHTEMP) pCO2 (T) (test code = 38.4 mmHg 35.0-45.0 [id number]) pO2 (T) (test code = 108.0 mmHg 80.0-110.0 UE4RYNP) Device (test code = VENTILATOR DEVICE) FI02 (test code = 50.0 % FI02) Liter_flow (test code = LF) VENPAR (test code = * Ventilator Parameters VENPAR) * SIMV (test code = 6 SIMV) A/C (test code = A/C) CPAP (test code = CPAP) PEEP (test code = 10.0 PEEP) PS (test code = PS) 12 PIP (test code = PIP) I_Time (test code = ITIME) Vt (test code = VT) 650 BIPAP INSP (test code = BIPAPINP) BIPAP EXP (test code = BIPAPEXP) Cecilio test (test code Positive = ATEST) SAMPLE SITE (test Right Radial Artery code = SSITE) COMMENT (test code = CO) DILANTIN (PHENYTOIN) [id number] 12:47:00 Test Item Value Reference Range Interpretation Comments PHENYTOIN (test code = 68C) 7.2 ug/mL 10.0-20.0 LL CBC WITH MANUAL [id number] 06:55:00 Test Item Value Reference Range Interpretation Comments WBC (test code = 17.8 10\\S\\3/uL 4.5-11.0 H WBC) RBC (test code = 3.52 10\\S\\6/uL 4.30-5.70 L RBC) HGB (test code = 10.1 g/dL 14.0-18.0 L HBG) HCT (test code = 32.7 % 35.0-46.0 L HCT) MCV (test code = 92.9 fL 80.0-94.0 MCV) MCH (test code = 28.7 pg 27.0-31.0 MCH) MCHC (test code = 30.9 g/dL 32.0-36.0 L MCHC) RDW (test code = 12.6 % 11.5-14.5 RDW) PLT (test code = 345 10\\S\\3/uL 130-400 PLT) MPV (test code = 10.0 fL 9.4-12.4 MPV) NEUTROP # (test 12.9 10\\S\\3/uL 2.0-8.0 H code = NE#) LYMPH # (test 2.3 10\\S\\3/uL 1.2-4.0 code = LY#) MONOCYTE # (test 0.9 10\\S\\3/uL 0.0-1.1 code = MO#) EOSINOPH # (test 0.0 10\\S\\3/uL 0.0-0.7 code = EO#) BASOPHIL # (test 0.0 10\\S\\3/uL 0.0-0.3 code = BA#) IG # (test code = 1.61 10\\S\\3/uL 0.00-0.06 H IG#) NRBC # (test code 0.03 10\\S\\3/uL 0.00-0.01 H = NRBC#) NEUTROPH % (test 72.7 % 35.0-73.0 code = NE%) LYMPH % (test 13.0 % 20.0-55.0 L code = LY%) MONO % (test code 4.8 % 2.5-10.0 = MO%) EOSINOPH % (test 0.2 % 0.0-5.0 code = EO%) BASOPHIL % (test 0.2 % 0.0-2.0 code = BA%) IG % (test code = 9.1 % 0.0-0.8 H IG%) NRBC% (test code 0.2 % 0.0-0.2 = NRBC%) MAN DIFF (test MANUAL code = HMDIFF) DIFFERENTIAL SEG (test code = 78 % 42-75 H SEG) BAND (test code = 3 % 0-8 BAND) LYMPH (test code 11 % 20-51 L = LYMPH) MONO (test code = 6 % 3-11 MONO) EOS (test code = 0 % See_Comment [Automated message] EOS) The system [employer] generated this result transmit claudio reference range : <=10. The refer ence range was not u sed to interpret th is result as normal/abnormal . BASO (test code = 0 % 0-2 BASO) MYELO (test code 2 % See_Comment H [Automated message] = MYELO) The system [employer] generated this result transmit claudio reference range : <=1. The refere nce range was not u sed to interpret th is result as normal/abnormal . RBC MORPH (test ABNORMAL NORMAL A code = RBCMORN) PLT EST (test ADEQUATE ADEQUATE code = PLTEST) PLT MORPH (test NORMAL (1.5-3 um) NORMAL code = PLTMOR) ANISO (test code 1+ NONE A = ANISO) PRO TIME AND [id number] 06:34:00 Test Item Value Reference Range Interpretation Comments PT (test code = 11.3 s 9.8-13.6 TT) INR (test code = 1.0 INR) INRH (test code = SUGGESTED THERAPEUTIC INRH) RANGE FOR INR: 2.5 - 3.5 For Patients with Prosthetic Valves or Patients with recurrent Thromboembolic Events 2.0 - 3.0 For Most Other Applications PTT (test code = 20.6 s 20.2-38.0 PTT) PTTH (test code = To monitor the PTTH) effectiveness of heparin, we offer the Anti-Xa (Heparin Assay). It can be used for either unfractionated or LMW Heparin. Order Code is ANTI-XA [id number] 06:34:00 Test Item Value Reference Range Interpretation Comments D-DIMER (test code = 381 ng/mL D-DU 0-234 H DDI) D-DIMER COMMENT (test *Level to rule out code = DDCOM) DVT or PE: <235 ng/mL D-DU* C-REACTIVE PROTEIN [id number] 05:08:00 Test Item Value Reference Range Interpretation Comments CRP QUANT (test code <2.9 mg/L 0.0-2.9 = CRPQ) Method Change (test Please note the code = METHOD) change in Method and the reference range LDH-LACTIC [id number] 05:05:00 Test Item Value Reference Range Interpretation Comments LDH (test code = 33A) 337 IU/L 100-190 H [id number] 05:03:00 Test Item Value Reference Range Interpretation Comments MAGNESIUM (test code = 48A) 2.1 mg/dL 1.8-2.4 TROPONIN [id number] 05:00:00 Test Item Value Reference Range Interpretation Comments TROPONIN I (test code = A84) <0.015 ng/mL 0.000-0.045 COMPREHENSIVE METABOLIC [id number] 04:55:00 Test Item Value Reference Range Interpretation Comments GLUCOSE (test code 131 mg/dL 75-100 H = 06D) SODIUM (test code 139 mmol/L 136-145 = 01A) POTASSIUM (test 4.4 mmol/L 3.6-5.1 code = 01B) CHLORIDE (test 105 mmol/L 98-107 code = 04A) CO2 (test code = 29 mmol/L 22-32 02A) ANION GAP (test 9.4 mmol/L code = ANG) BUN (test code = 21 mg/dL 7-18 H 05D) CREATININE (test 0.6 mg/dL 0.7-1.3 L code = 03E) GFR (test code = 129 See_Comment [Automated GFR) mL/min/1.73m\\S\\2 message] e system which generated this result transmit claudio reference range : >=90. The reference range was not used to interpret this result as normal/abnormal . GFR 150 See_Comment [Automated SALVADOREAN (test mL/min/1.73m\\S\\2 message] The code = GFRAA) system which generated this result transmit claudio reference range : >=90. The reference range was not used to interpret this result as normal/abnormal . EGFR (test code = eGFR BY EGFR) CKD-EPI CALCULATION IS NOT RECOMMENDED FOR PATIENTS UNDER 18 YEARS OF AGE. BUN/CREA (test 35 12-20 H code = BCR) CALCIUM (test code 8.2 mg/dL 8.3-9.5 L = 09D) BILI TOTAL (test 0.4 mg/dL 0.2-1.0 code = 11A) PROTEIN (test code 5.6 g/dL 6.4-8.2 L = 07D) ALBUMIN (test code 2.4 g/dL 3.5-4.8 L = 08D) GLOBULIN (test 3.2 g/dL 1.5-3.8 code = GLB) ALB/GLOB (test 0.8 1.0-2.6 L code = AGRR) ALK PHOS (test 78 IU/L 42-121 code = 35A) AST (test code = 61 IU/L See_Comment H [Automated 30A) message] The system which generated this result transmit claudio reference range : <=42. The reference range was not used to interpret this result as normal/abnormal . ALT (test code = 117 IU/L See_Comment H [Automated 31A) message] The system which generated this result transmit claudio reference range : <=78. The reference range was not used to interpret this result as normal/abnormal . LDH-LACTIC [id number] 04:55:00 Test Item Value Reference Range Interpretation Comments LDH (test code = 33A) 329 IU/L 100-190 H [id number] 04:55:00 Test Item Value Reference Range Interpretation Comments FERRITIN (test code = A19) 305.4 ng/mL 26.0-388.0 Arterial Blood [id number] 04:36:00 Test Item Value Reference Range Interpretation Comments pH (test code = PHRT) 7.456 7.350-7.450 H pCO2 (test code = 39.4 mmHg 35.0-45.0 PCO2RT) pO2 (test code = 110.0 mmHg 80.0-110.0 PO2RT) HCO3? (test code = 27.4 mmol/L 22.0-26.0 H HCO3) HOLLY (test code = HOLLY) 3.7 mmol/L -3.0-3.0 H tHb (test code = 11.1 g/dL 14.0-18.0 L THBRT) sO2 (test code = 98.5 % 92.0-100.0 SO2RT) FO2Hb (test code = 97.0 % 94.0-100.0 OB8EDRN) FCOHb (test code = 0.9 % 0.0-3.0 FCOHBRT) FMetHb (test code = 0.6 % 0.2-0.6 FMETHBRT) ABGTEMP (test code = * Temp Corrected Values* ABGTEMP) ABGTEMP (test code = 37.0 ?C ABGTEMP.) pH (T) (test code = 7.456 7.350-7.450 H PHTEMP) pCO2 (T) (test code = 39.4 mmHg 35.0-45.0 [id number]) pO2 (T) (test code = 110.0 mmHg 80.0-110.0 [id number]) Device (test code = VENTILATOR DEVICE) FI02 (test code = 50.0 % FI02) Liter_flow (test code = LF) VENPAR (test code = * Ventilator Parameters VENPAR) * SIMV (test code = 6 SIMV) A/C (test code = A/C) CPAP (test code = CPAP) PEEP (test code = 10.0 PEEP) PS (test code = PS) 12 PIP (test code = PIP) I_Time (test code = ITIME) Vt (test code = VT) 650 BIPAP INSP (test code = BIPAPINP) BIPAP EXP (test code = BIPAPEXP) Cecilio test (test code Positive = ATEST) SAMPLE SITE (test Right Radial Artery code = SSITE) COMMENT (test code = CO) CBC WITH MANUAL [id number] 06:20:00 Test Item Value Reference Range Interpretation Comments WBC (test code = 18.9 10\\S\\3/uL 4.5-11.0 H WBC) RBC (test code = 3.54 10\\S\\6/uL 4.30-5.70 L RBC) HGB (test code = 10.3 g/dL 14.0-18.0 L HBG) HCT (test code = 32.2 % 35.0-46.0 L HCT) MCV (test code = 91.0 fL 80.0-94.0 MCV) MCH (test code = 29.1 pg 27.0-31.0 MCH) MCHC (test code = 32.0 g/dL 32.0-36.0 MCHC) RDW (test code = 12.0 % 11.5-14.5 RDW) PLT (test code = 358 10\\S\\3/uL 130-400 PLT) MPV (test code = 9.8 fL 9.4-12.4 MPV) NEUTROP # (test 13.8 10\\S\\3/uL 2.0-8.0 H code = NE#) LYMPH # (test code 2.7 10\\S\\3/uL 1.2-4.0 = LY#) MONOCYTE # (test 0.9 10\\S\\3/uL 0.0-1.1 code = MO#) EOSINOPH # (test 0.0 10\\S\\3/uL 0.0-0.7 code = EO#) BASOPHIL # (test 0.0 10\\S\\3/uL 0.0-0.3 code = BA#) IG # (test code = 1.38 10\\S\\3/uL 0.00-0.06 H IG#) NRBC # (test code 0.06 10\\S\\3/uL 0.00-0.01 H = NRBC#) NEUTROPH % (test 73.1 % 35.0-73.0 H code = NE%) LYMPH % (test code 14.3 % 20.0-55.0 L = LY%) MONO % (test code 5.0 % 2.5-10.0 = MO%) EOSINOPH % (test 0.2 % 0.0-5.0 code = EO%) BASOPHIL % (test 0.1 % 0.0-2.0 code = BA%) IG % (test code = 7.3 % 0.0-0.8 H IG%) NRBC% (test code = 0.3 % 0.0-0.2 H NRBC%) MAN DIFF (test MANUAL code = HMDIFF) DIFFERENTIAL SEG (test code = 77 % 42-75 H Previously reported SEG) as: 78 On 05/16/2020 06:2 0 By ts BAND (test code = 1 % 0-8 BAND) LYMPH (test code = 14 % 20-51 L LYMPH) MONO (test code = 5 % 3-11 MONO) EOS (test code = 0 % <=10 EOS) BASO (test code = 0 % 0-2 BASO) META (test code = 2 % <=1 H META) MYELO (test code = 1 % <=1 MYELO) RBC MORPH (test NORMAL NORMAL code = RBCMORN) PLT EST (test code ADEQUATE ADEQUATE = PLTEST) PLT MORPH (test NORMAL (1.5-3 um) NORMAL code = PLTMOR) COMPREHENSIVE METABOLIC [id number] 05:09:00 Test Item Value Reference Range Interpretation Comments GLUCOSE (test code = 136 mg/dL 75-100 H 06D) SODIUM (test code = 140 mmol/L 136-145 01A) POTASSIUM (test code = 3.7 mmol/L 3.6-5.1 01B) CHLORIDE (test code = 107 mmol/L 98-107 04A) CO2 (test code = 02A) 27 mmol/L 22-32 ANION GAP (test code = 9.7 mmol/L ANG) BUN (test code = 05D) 21 mg/dL 7-18 H CREATININE (test code 0.6 mg/dL 0.7-1.3 L = 03E) GFR (test code = GFR) 129 mL/min/1.73m\\S\\2 >=90 GFR 150 mL/min/1.73m\\S\\2 >=90 (test code = GFRAA) EGFR (test code = eGFR BY CKD-EPI EGFR) CALCULATION IS NOT RECOMMENDED FOR PATIENTS UNDER 18 YEARS OF AGE. BUN/CREA (test code = 35 12-20 H BCR) CALCIUM (test code = 7.9 mg/dL 8.3-9.5 L 09D) BILI TOTAL (test code 0.7 mg/dL 0.2-1.0 = 11A) PROTEIN (test code = 5.4 g/dL 6.4-8.2 L 07D) ALBUMIN (test code = 2.5 g/dL 3.5-4.8 L 08D) GLOBULIN (test code = 2.9 g/dL 1.5-3.8 GLB) ALB/GLOB (test code = 0.9 1.0-2.6 L AGRR) ALK PHOS (test code = 80 IU/L 42-121 35A) AST (test code = 30A) 36 IU/L <=42 ALT (test code = 31A) 52 IU/L <=78 LDH-LACTIC [id number] 05:09:00 Test Item Value Reference Range Interpretation Comments LDH (test code = 33A) 359 IU/L 100-190 H [id number] 04:59:00 Test Item Value Reference Range Interpretation Comments MAGNESIUM (test code = 48A) 1.8 mg/dL 1.8-2.4 Arterial Blood [id number] 04:53:00 Test Item Value Reference Range Interpretation Comments pH (test code = PHRT) 7.439 7.350-7.450 pCO2 (test code = 38.3 mmHg 35.0-45.0 PCO2RT) pO2 (test code = 114.0 mmHg 80.0-110.0 H PO2RT) HCO3? (test code = 25.5 mmol/L 22.0-26.0 HCO3) HOLLY (test code = HOLLY) 1.9 mmol/L -3.0-3.0 tHb (test code = 12.4 g/dL 14.0-18.0 L THBRT) sO2 (test code = 98.4 % 92.0-100.0 SO2RT) FO2Hb (test code = 97.1 % 94.0-100.0 [id number]) FCOHb (test code = 0.8 % 0.0-3.0 FCOHBRT) FMetHb (test code = 0.5 % 0.2-0.6 FMETHBRT) ABGTEMP (test code = * Temp Corrected Values* ABGTEMP) ABGTEMP (test code = 37.0 ?C ABGTEMP.) pH (T) (test code = 7.439 7.350-7.450 PHTEMP) pCO2 (T) (test code = 38.3 mmHg 35.0-45.0 [id number]) pO2 (T) (test code = 114.0 mmHg 80.0-110.0 H [id number]) Device (test code = VENTILATOR DEVICE) FI02 (test code = 70.0 % FI02) Liter_flow (test code = LF) VENPAR (test code = * Ventilator Parameters VENPAR) * SIMV (test code = SIMV) A/C (test code = A/C) 10 CPAP (test code = CPAP) PEEP (test code = 10.0 PEEP) PS (test code = PS) PIP (test code = PIP) I_Time (test code = ITIME) Vt (test code = VT) 600 BIPAP INSP (test code = BIPAPINP) BIPAP EXP (test code = BIPAPEXP) Cecilio test (test code Positive = ATEST) SAMPLE SITE (test Right Radial Artery code = SSITE) COMMENT (test code = CO) URINE [id number] 08:18:00 Test Item Value Reference Range Interpretation Comments Culture Observations (test NO GROWTH (<1,000 code = COB1) CFU/ML) [id number] 08:02:00 Test Item Value Reference Range Interpretation Comments INTERLEUKIN 69.76 pg/mL <5.00 H This test was p erformed using a -6 (test kit that has no t beencleared or code = approved by the FDA. The [id number]) analytical performancechar acteristics of this test have been determined by [employer] Preet Bueno [facility] Shazia. This testshould not be used for diagnosis witho ut confirmation [facility] established means.TEST PERF ORMED AT:[facility] [id number] [place] [id number] WILLY LOVE MD,PHD ,[facility] [id number] 07:44:00 Test Item Value Reference Range Interpretation Comments Culture Observations NORMAL RESPIRATORY (test code = COB1) STACY Direct Exam (test code MANY WHITE BLOOD CELLS = DE1) SEEN Direct Exam (test code RARE EPITHELIAL CELLS = DE2) SEEN Direct Exam (test code FEW YEAST A = DE3) Direct Exam (test code RARE GRAM POSITIVE = DE4) COCCI Isolate 1 (test code = Danielle albicans A ISO1) CBC WITH MANUAL [id number] 06:57:00 Test Item Value Reference Range Interpretation Comments WBC (test code = WBC) 15.6 10\\S\\3/uL 4.5-11.0 H RBC (test code = RBC) 3.35 10\\S\\6/uL 4.30-5.70 L HGB (test code = HBG) 9.8 g/dL 14.0-18.0 L HCT (test code = HCT) 29.4 % 35.0-46.0 L MCV (test code = MCV) 87.8 fL 80.0-94.0 MCH (test code = MCH) 29.3 pg 27.0-31.0 MCHC (test code = MCHC) 33.3 g/dL 32.0-36.0 RDW (test code = RDW) 11.9 % 11.5-14.5 PLT (test code = PLT) 361 10\\S\\3/uL 130-400 MPV (test code = MPV) 10.2 fL 9.4-12.4 NEUTROP # (test code = 12.6 10\\S\\3/uL 2.0-8.0 H NE#) LYMPH # (test code = 1.4 10\\S\\3/uL 1.2-4.0 LY#) MONOCYTE # (test code = 0.7 10\\S\\3/uL 0.0-1.1 MO#) EOSINOPH # (test code = 0.0 10\\S\\3/uL 0.0-0.7 EO#) BASOPHIL # (test code = 0.1 10\\S\\3/uL 0.0-0.3 BA#) IG # (test code = IG#) 0.80 10\\S\\3/uL 0.00-0.06 H NRBC # (test code = 0.02 10\\S\\3/uL 0.00-0.01 H NRBC#) NEUTROPH % (test code = 81.2 % 35.0-73.0 H NE%) LYMPH % (test code = 9.1 % 20.0-55.0 L LY%) MONO % (test code = MO%) 4.2 % 2.5-10.0 EOSINOPH % (test code = 0.1 % 0.0-5.0 EO%) BASOPHIL % (test code = 0.3 % 0.0-2.0 BA%) IG % (test code = IG%) 5.1 % 0.0-0.8 H NRBC% (test code = 0.1 % 0.0-0.2 NRBC%) MAN DIFF (test code = MANUAL HMDIFF) DIFFERENTIAL SEG (test code = SEG) 79 % 42-75 H BAND (test code = BAND) 5 % 0-8 LYMPH (test code = 7 % 20-51 L LYMPH) MONO (test code = MONO) 7 % 3-11 EOS (test code = EOS) 1 % <=10 BASO (test code = BASO) 0 % 0-2 RBC MORPH (test code = ABNORMAL NORMAL A RBCMORN) PLT EST (test code = ADEQUATE ADEQUATE PLTEST) PLT MORPH (test code = NORMAL (1.5-3 um) NORMAL PLTMOR) HYPOCHROM (test code = 1+ NONE A HYPOC) MICROCYTIC (test code = 1+ NONE A MICRO) [id number] 05:29:00 Test Item Value Reference Range Interpretation Comments MAGNESIUM (test code = 48A) 2.0 mg/dL 1.8-2.4 LDH-LACTIC [id number] 05:29:00 Test Item Value Reference Range Interpretation Comments LDH (test code = 33A) 341 IU/L 100-190 H COMPREHENSIVE METABOLIC [id number] 05:29:00 Test Item Value Reference Range Interpretation Comments GLUCOSE (test code = 150 mg/dL 75-100 H 06D) SODIUM (test code = 140 mmol/L 136-145 01A) POTASSIUM (test code = 3.6 mmol/L 3.6-5.1 01B) CHLORIDE (test code = 107 mmol/L 98-107 04A) CO2 (test code = 02A) 29 mmol/L 22-32 ANION GAP (test code = 7.6 mmol/L ANG) BUN (test code = 05D) 20 mg/dL 7-18 H CREATININE (test code 0.5 mg/dL 0.7-1.3 L = 03E) GFR (test code = GFR) 135 mL/min/1.73m\\S\\2 >=90 GFR 157 mL/min/1.73m\\S\\2 >=90 (test code = GFRAA) EGFR (test code = eGFR BY CKD-EPI EGFR) CALCULATION IS NOT RECOMMENDED FOR PATIENTS UNDER 18 YEARS OF AGE. BUN/CREA (test code = 37 12-20 H BCR) CALCIUM (test code = 8.3 mg/dL 8.3-9.5 09D) BILI TOTAL (test code 0.8 mg/dL 0.2-1.0 = 11A) PROTEIN (test code = 5.4 g/dL 6.4-8.2 L 07D) ALBUMIN (test code = 2.5 g/dL 3.5-4.8 L 08D) GLOBULIN (test code = 2.9 g/dL 1.5-3.8 GLB) ALB/GLOB (test code = 0.9 1.0-2.6 L AGRR) ALK PHOS (test code = 70 IU/L 42-121 35A) AST (test code = 30A) 31 IU/L <=42 ALT (test code = 31A) 46 IU/L <=78 Arterial Blood [id number] 04:58:00 Test Item Value Reference Range Interpretation Comments pH (test code = PHRT) 7.458 7.350-7.450 H pCO2 (test code = 38.8 mmHg 35.0-45.0 PCO2RT) pO2 (test code = 65.8 mmHg 80.0-110.0 L PO2RT) HCO3? (test code = 27.1 mmol/L 22.0-26.0 H HCO3) HOLLY (test code = HOLLY) 3.5 mmol/L -3.0-3.0 H tHb (test code = 10.9 g/dL 14.0-18.0 L THBRT) sO2 (test code = 92.3 % 92.0-100.0 SO2RT) FO2Hb (test code = 90.5 % 94.0-100.0 L [id number]) FCOHb (test code = 0.7 % 0.0-3.0 FCOHBRT) FMetHb (test code = 1.3 % 0.2-0.6 H FMETHBRT) ABGTEMP (test code = * Temp Corrected Values* ABGTEMP) ABGTEMP (test code = 37.0 ?C ABGTEMP.) pH (T) (test code = 7.458 7.350-7.450 H PHTEMP) pCO2 (T) (test code = 38.8 mmHg 35.0-45.0 [id number]) pO2 (T) (test code = 65.8 mmHg 80.0-110.0 L [id number]) Device (test code = VENTILATOR DEVICE) FI02 (test code = 40.0 % FI02) Liter_flow (test code = LF) VENPAR (test code = * Ventilator Parameters VENPAR) * SIMV (test code = SIMV) A/C (test code = A/C) 10 CPAP (test code = CPAP) PEEP (test code = 10.0 PEEP) PS (test code = PS) PIP (test code = PIP) I_Time (test code = ITIME) Vt (test code = VT) 600 BIPAP INSP (test code = BIPAPINP) BIPAP EXP (test code = BIPAPEXP) Cecilio test (test code Positive = ATEST) SAMPLE SITE (test Right Radial Artery code = SSITE) COMMENT (test code = CO) COMPREHENSIVE METABOLIC [id number] 06:25:00 Test Item Value Reference Range Interpretation Comments GLUCOSE (test code = 126 mg/dL 75-100 H 06D) SODIUM (test code = 139 mmol/L 136-145 01A) POTASSIUM (test code = 3.7 mmol/L 3.6-5.1 01B) CHLORIDE (test code = 104 mmol/L 98-107 04A) CO2 (test code = 02A) 29 mmol/L 22-32 ANION GAP (test code = 9.7 mmol/L ANG) BUN (test code = 05D) 19 mg/dL 7-18 H CREATININE (test code 0.6 mg/dL 0.7-1.3 L = 03E) GFR (test code = GFR) 134 mL/min/1.73m\\S\\2 >=90 GFR 155 mL/min/1.73m\\S\\2 >=90 (test code = GFRAA) EGFR (test code = eGFR BY CKD-EPI EGFR) CALCULATION IS NOT RECOMMENDED FOR PATIENTS UNDER 18 YEARS OF AGE. BUN/CREA (test code = 34 12-20 H BCR) CALCIUM (test code = 8.4 mg/dL 8.3-9.5 09D) BILI TOTAL (test code 0.7 mg/dL 0.2-1.0 = 11A) PROTEIN (test code = 5.9 g/dL 6.4-8.2 L 07D) ALBUMIN (test code = 2.6 g/dL 3.5-4.8 L 08D) GLOBULIN (test code = 3.3 g/dL 1.5-3.8 GLB) ALB/GLOB (test code = 0.8 1.0-2.6 L AGRR) ALK PHOS (test code = 67 IU/L 42-121 35A) AST (test code = 30A) 40 IU/L <=42 ALT (test code = 31A) 47 IU/L <=78 LDH-LACTIC [id number] 06:25:00 Test Item Value Reference Range Interpretation Comments LDH (test code = 33A) 427 IU/L 100-190 H [id number] 06:25:00 Test Item Value Reference Range Interpretation Comments MAGNESIUM (test code = 48A) 2.0 mg/dL 1.8-2.4 CBC (INCLUDES AUTOMATED DIFFERENTIAL)[id number] 06:19:00 Test Item Value Reference Range Interpretation Comments WBC (test code = WBC) 15.6 10\\S\\3/uL 4.5-11.0 H RBC (test code = RBC) 3.54 10\\S\\6/uL 4.30-5.70 L HGB (test code = HBG) 10.4 g/dL 14.0-18.0 L HCT (test code = HCT) 30.7 % 35.0-46.0 L MCV (test code = MCV) 86.7 fL 80.0-94.0 MCH (test code = MCH) 29.4 pg 27.0-31.0 MCHC (test code = MCHC) 33.9 g/dL 32.0-36.0 RDW (test code = RDW) 11.6 % 11.5-14.5 PLT (test code = PLT) 407 10\\S\\3/uL 130-400 H MPV (test code = MPV) 10.2 fL 9.4-12.4 NEUTROP # (test code = NE#) 13.8 10\\S\\3/uL 2.0-8.0 H LYMPH # (test code = LY#) 1.0 10\\S\\3/uL 1.2-4.0 L MONOCYTE # (test code = MO#) 0.6 10\\S\\3/uL 0.0-1.1 EOSINOPH # (test code = EO#) 0.0 10\\S\\3/uL 0.0-0.7 BASOPHIL # (test code = BA#) 0.0 10\\S\\3/uL 0.0-0.3 IG # (test code = IG#) 0.21 10\\S\\3/uL 0.00-0.06 H NRBC # (test code = NRBC#) 0.00 10\\S\\3/uL 0.00-0.01 NEUTROPH % (test code = NE%) 88.5 % 35.0-73.0 H LYMPH % (test code = LY%) 6.6 % 20.0-55.0 L MONO % (test code = MO%) 3.5 % 2.5-10.0 EOSINOPH % (test code = EO%) 0.0 % 0.0-5.0 BASOPHIL % (test code = BA%) 0.1 % 0.0-2.0 IG % (test code = IG%) 1.3 % 0.0-0.8 H NRBC% (test code = NRBC%) 0.0 % 0.0-0.2 MANDIFF (test code = MDIFF) NO NO RBC MORPH (test code = RBCMOR) NORMAL Arterial Blood [id number] 05:02:00 Test Item Value Reference Range Interpretation Comments pH (test code = PHRT) 7.494 7.350-7.450 H pCO2 (test code = 36.4 mmHg 35.0-45.0 PCO2RT) pO2 (test code = 85.9 mmHg 80.0-110.0 PO2RT) HCO3? (test code = 27.7 mmol/L 22.0-26.0 H HCO3) HOLLY (test code = HOLLY) 4.7 mmol/L -3.0-3.0 H tHb (test code = 11.4 g/dL 14.0-18.0 L THBRT) sO2 (test code = 97.0 % 92.0-100.0 SO2RT) FO2Hb (test code = 95.3 % 94.0-100.0 [id number]) FCOHb (test code = 1.1 % 0.0-3.0 FCOHBRT) FMetHb (test code = 0.7 % 0.2-0.6 H FMETHBRT) ABGTEMP (test code = * Temp Corrected Values* ABGTEMP) ABGTEMP (test code = 37.0 ?C ABGTEMP.) pH (T) (test code = 7.494 7.350-7.450 H PHTEMP) pCO2 (T) (test code = 36.4 mmHg 35.0-45.0 [id number]) pO2 (T) (test code = 85.9 mmHg 80.0-110.0 [id number]) Device (test code = VENTILATOR DEVICE) FI02 (test code = 60.0 % FI02) Liter_flow (test code = LF) VENPAR (test code = * Ventilator Parameters VENPAR) * SIMV (test code = SIMV) A/C (test code = A/C) 12 CPAP (test code = CPAP) PEEP (test code = 10.0 PEEP) PS (test code = PS) PIP (test code = PIP) I_Time (test code = ITIME) Vt (test code = VT) 600 BIPAP INSP (test code = BIPAPINP) BIPAP EXP (test code = BIPAPEXP) Cecilio test (test code Positive = ATEST) SAMPLE SITE (test Right Radial Artery code = SSITE) COMMENT (test code = CO) C-REACTIVE PROTEIN [id number] 14:04:00 Test Item Value Reference Range Interpretation Comments CRP QUANT (test code 27.6 mg/L 0.0-2.9 H = CRPQ) Method Change (test Please note the code = METHOD) change in Method and the reference range [id number] 14:00:00 Test Item Value Reference Range Interpretation Comments FERRITIN (test code = A19) 366.8 ng/mL 26.0-388.0 Arterial Blood [id number] 05:14:00 Test Item Value Reference Range Interpretation Comments pH (test code = PHRT) 7.494 7.350-7.450 H pCO2 (test code = 34.4 mmHg 35.0-45.0 L PCO2RT) pO2 (test code = 99.9 mmHg 80.0-110.0 PO2RT) HCO3? (test code = 26.3 mmol/L 22.0-26.0 H HCO3) HOLLY (test code = HOLLY) 3.4 mmol/L -3.0-3.0 H tHb (test code = 10.9 g/dL 14.0-18.0 L THBRT) sO2 (test code = 97.5 % 92.0-100.0 SO2RT) FO2Hb (test code = 95.4 % 94.0-100.0 [id number]) FCOHb (test code = 0.6 % 0.0-3.0 FCOHBRT) FMetHb (test code = 1.5 % 0.2-0.6 H FMETHBRT) ABGTEMP (test code = * Temp Corrected Values* ABGTEMP) ABGTEMP (test code = 37.0 ?C ABGTEMP.) pH (T) (test code = 7.494 7.350-7.450 H PHTEMP) pCO2 (T) (test code = 34.4 mmHg 35.0-45.0 L [id number]) pO2 (T) (test code = 99.9 mmHg 80.0-110.0 [id number]) Device (test code = VENTILATOR DEVICE) FI02 (test code = 100.0 % FI02) Liter_flow (test code = LF) VENPAR (test code = * Ventilator Parameters VENPAR) * SIMV (test code = SIMV) A/C (test code = A/C) 16 CPAP (test code = CPAP) PEEP (test code = 12.0 PEEP) PS (test code = PS) PIP (test code = PIP) I_Time (test code = ITIME) Vt (test code = VT) 600 BIPAP INSP (test code = BIPAPINP) BIPAP EXP (test code = BIPAPEXP) Cecilio test (test code Positive = ATEST) SAMPLE SITE (test Right Radial Artery code = SSITE) COMMENT (test code = CO) CBC WITH MANUAL [id number] 04:15:00 Test Item Value Reference Range Interpretation Comments WBC (test code = WBC) 10.6 10\\S\\3/uL 4.5-11.0 RBC (test code = RBC) 3.48 10\\S\\6/uL 4.30-5.70 L HGB (test code = HBG) 10.1 g/dL 14.0-18.0 L HCT (test code = HCT) 30.2 % 35.0-46.0 L MCV (test code = MCV) 86.8 fL 80.0-94.0 MCH (test code = MCH) 29.0 pg 27.0-31.0 MCHC (test code = MCHC) 33.4 g/dL 32.0-36.0 RDW (test code = RDW) 11.3 % 11.5-14.5 L PLT (test code = PLT) 372 10\\S\\3/uL 130-400 MPV (test code = MPV) 9.8 fL 9.4-12.4 NEUTROP # (test code = 9.5 10\\S\\3/uL 2.0-8.0 H NE#) LYMPH # (test code = 0.9 10\\S\\3/uL 1.2-4.0 L LY#) MONOCYTE # (test code = 0.2 10\\S\\3/uL 0.0-1.1 MO#) EOSINOPH # (test code = 0.0 10\\S\\3/uL 0.0-0.7 EO#) BASOPHIL # (test code = 0.0 10\\S\\3/uL 0.0-0.3 BA#) IG # (test code = IG#) 0.06 10\\S\\3/uL 0.00-0.06 NRBC # (test code = 0.00 10\\S\\3/uL 0.00-0.01 NRBC#) NEUTROPH % (test code = 89.6 % 35.0-73.0 H NE%) LYMPH % (test code = 8.0 % 20.0-55.0 L LY%) MONO % (test code = 1.6 % 2.5-10.0 L MO%) EOSINOPH % (test code = 0.0 % 0.0-5.0 EO%) BASOPHIL % (test code = 0.2 % 0.0-2.0 BA%) IG % (test code = IG%) 0.6 % 0.0-0.8 NRBC% (test code = 0.0 % 0.0-0.2 NRBC%) MAN DIFF (test code = MANUAL HMDIFF) DIFFERENTIAL SEG (test code = SEG) 74 % 42-75 BAND (test code = BAND) 11 % 0-8 H LYMPH (test code = 13 % 20-51 L LYMPH) MONO (test code = MONO) 2 % 3-11 L EOS (test code = EOS) 0 % <=10 BASO (test code = BASO) 0 % 0-2 RBC MORPH (test code = NORMAL NORMAL RBCMORN) PLT EST (test code = ADEQUATE ADEQUATE PLTEST) PLT MORPH (test code = NORMAL (1.5-3 um) NORMAL PLTMOR) COMPREHENSIVE METABOLIC [id number] 03:52:00 Test Item Value Reference Range Interpretation Comments GLUCOSE (test code = 130 mg/dL 75-100 H 06D) SODIUM (test code = 138 mmol/L 136-145 01A) POTASSIUM (test code = 4.0 mmol/L 3.6-5.1 01B) CHLORIDE (test code = 106 mmol/L 98-107 04A) CO2 (test code = 02A) 28 mmol/L 22-32 ANION GAP (test code = 8.0 mmol/L ANG) BUN (test code = 05D) 18 mg/dL 7-18 CREATININE (test code 0.7 mg/dL 0.7-1.3 = 03E) GFR (test code = GFR) 125 mL/min/1.73m\\S\\2 >=90 GFR 145 mL/min/1.73m\\S\\2 >=90 (test code = GFRAA) EGFR (test code = eGFR BY CKD-EPI EGFR) CALCULATION IS NOT RECOMMENDED FOR PATIENTS UNDER 18 YEARS OF AGE. BUN/CREA (test code = 27 12-20 H BCR) CALCIUM (test code = 8.3 mg/dL 8.3-9.5 09D) BILI TOTAL (test code 0.7 mg/dL 0.2-1.0 = 11A) PROTEIN (test code = 5.6 g/dL 6.4-8.2 L 07D) ALBUMIN (test code = 2.5 g/dL 3.5-4.8 L 08D) GLOBULIN (test code = 3.1 g/dL 1.5-3.8 GLB) ALB/GLOB (test code = 0.8 1.0-2.6 L AGRR) ALK PHOS (test code = 48 IU/L 42-121 35A) AST (test code = 30A) 33 IU/L <=42 ALT (test code = 31A) 49 IU/L <=78 [id number] 03:52:00 Test Item Value Reference Range Interpretation Comments MAGNESIUM (test code = 48A) 1.8 mg/dL 1.8-2.4 LDH-LACTIC [id number] 03:52:00 Test Item Value Reference Range Interpretation Comments LDH (test code = 33A) 380 IU/L 100-190 H URINALYSIS WITH [id number] 23:35:00 Test Item Value Reference Range Interpretation Comments COLOR (test code = COLU) YELLOW YELLOW CLARITY (test code = CLA) CLOUDY CLEAR A GLUCOSE UR (test code = UA NEGATIVE NEGATIVE GLUCOSE) BILI UR (test code = BILE) NEGATIVE NEGATIVE KETONES UR (test code = BERENICE) 1+ NEGATIVE A SP GRAVITY (test code = SPGR) 1.023 1.005-1.030 PH UR (test code = PH) 6.0 4.5-8.0 PROTEIN UR (test code = PU) TRACE NEGATIVE A UROBIL UR (test code = UROQ) 1.0 EU/dL 0.2-1.0 NITRITE UR (test code = NEGATIVE NEGATIVE NITRITE) BLOOD UR (test code = UA BLOOD) TRACE NEGATIVE A LEUK ES UR (test code = LEUK) NEGATIVE NEGATIVE WBC UR (test code = UWBC) 5 /HPF 0-3 H RBC UR (test code = URBC) 5 /HPF 0-2 H EPITH UR (test code = UEPC) NONE /LPF NONE BACTERIA UR (test code = UBACT) MODERATE /HPF NONE A CAST UR (test code = CAST) /LPF NONE CRYSTAL UR (test code = CRYU) / LPF NONE MUCUS UR (test code = MUC) / HPF NONE AMORPH UR (test code = CAMPBELL) / HPF NONE TRICH UR (test code = UTRICH) /HPF NONE YEAST UR (test code = UY) /HPF NONE SPERM UR (test code = USPERM) /HPF NONE Arterial Blood [id number] 13:31:00 Test Item Value Reference Range Interpretation Comments pH (test code = PHRT) 7.397 7.350-7.450 pCO2 (test code = 47.3 mmHg 35.0-45.0 H PCO2RT) pO2 (test code = 54.8 mmHg 80.0-110.0 LL PO2RT) HCO3? (test code = 28.4 mmol/L 22.0-26.0 H HCO3) HOLLY (test code = HOLLY) 3.4 mmol/L -3.0-3.0 H tHb (test code = 12.3 g/dL 14.0-18.0 L THBRT) sO2 (test code = 90.2 % 92.0-100.0 L SO2RT) FO2Hb (test code = 88.6 % 94.0-100.0 L [id number]) FCOHb (test code = 1.2 % 0.0-3.0 FCOHBRT) FMetHb (test code = 0.5 % 0.2-0.6 FMETHBRT) ABGTEMP (test code = * Temp Corrected Values* ABGTEMP) ABGTEMP (test code = 37.0 ?C ABGTEMP.) pH (T) (test code = 7.397 7.350-7.450 PHTEMP) pCO2 (T) (test code = 47.3 mmHg 35.0-45.0 H [id number]) pO2 (T) (test code = 54.8 mmHg 80.0-110.0 LL [id number]) Device (test code = VENTILATOR DEVICE) FI02 (test code = 100.0 % FI02) Liter_flow (test code = LF) VENPAR (test code = * Ventilator Parameters VENPAR) * SIMV (test code = SIMV) A/C (test code = A/C) 16 CPAP (test code = CPAP) PEEP (test code = 12.0 PEEP) PS (test code = PS) PIP (test code = PIP) I_Time (test code = ITIME) Vt (test code = VT) 600 BIPAP INSP (test code = BIPAPINP) BIPAP EXP (test code = BIPAPEXP) Cecilio test (test code Positive = ATEST) SAMPLE SITE (test Left Brachial Artery code = SSITE) COMMENT (test code = CO) GLUCOMETER GLUCOSE- LAB USE [id number] 05:32:00 Test Item Value Reference Range Interpretation Comments GLUCOMETER (test code 161 mg/dL 70-100 H CLEANE D METERMeter ID: = GMG) [id number] tor: [id number] COMPREHENSIVE METABOLIC [id number] 04:26:00 Test Item Value Reference Range Interpretation Comments GLUCOSE (test code = 122 mg/dL 75-100 H 06D) SODIUM (test code = 137 mmol/L 136-145 01A) POTASSIUM (test code = 4.3 mmol/L 3.6-5.1 01B) CHLORIDE (test code = 101 mmol/L 98-107 04A) CO2 (test code = 02A) 32 mmol/L 22-32 ANION GAP (test code = 8.3 mmol/L ANG) BUN (test code = 05D) 13 mg/dL 7-18 CREATININE (test code 0.5 mg/dL 0.7-1.3 L = 03E) GFR (test code = GFR) 136 mL/min/1.73m\\S\\2 >=90 GFR 158 mL/min/1.73m\\S\\2 >=90 (test code = GFRAA) EGFR (test code = eGFR BY CKD-EPI EGFR) CALCULATION IS NOT RECOMMENDED FOR PATIENTS UNDER 18 YEARS OF AGE. BUN/CREA (test code = 25 12-20 H BCR) CALCIUM (test code = 8.3 mg/dL 8.3-9.5 09D) BILI TOTAL (test code 1.0 mg/dL 0.2-1.0 = 11A) PROTEIN (test code = 6.8 g/dL 6.4-8.2 07D) ALBUMIN (test code = 2.5 g/dL 3.5-4.8 L 08D) GLOBULIN (test code = 4.3 g/dL 1.5-3.8 H GLB) ALB/GLOB (test code = 0.6 1.0-2.6 L AGRR) ALK PHOS (test code = 71 IU/L 42-121 35A) AST (test code = 30A) 47 IU/L <=42 H ALT (test code = 31A) 80 IU/L <=78 H [id number] 04:18:00 Test Item Value Reference Range Interpretation Comments MAGNESIUM (test code = 48A) 2.1 mg/dL 1.8-2.4 CBC (INCLUDES AUTOMATED DIFFERENTIAL)[id number] 04:08:00 Test Item Value Reference Range Interpretation Comments WBC (test code = WBC) 14.0 10\\S\\3/uL 4.5-11.0 H RBC (test code = RBC) 4.48 10\\S\\6/uL 4.30-5.70 HGB (test code = HBG) 13.1 g/dL 14.0-18.0 L HCT (test code = HCT) 40.4 % 35.0-46.0 MCV (test code = MCV) 90.2 fL 80.0-94.0 MCH (test code = MCH) 29.2 pg 27.0-31.0 MCHC (test code = MCHC) 32.4 g/dL 32.0-36.0 RDW (test code = RDW) 11.5 % 11.5-14.5 PLT (test code = PLT) 552 10\\S\\3/uL 130-400 H MPV (test code = MPV) 10.3 fL 9.4-12.4 NEUTROP # (test code = NE#) 12.0 10\\S\\3/uL 2.0-8.0 H LYMPH # (test code = LY#) 1.1 10\\S\\3/uL 1.2-4.0 L MONOCYTE # (test code = MO#) 0.7 10\\S\\3/uL 0.0-1.1 EOSINOPH # (test code = EO#) 0.0 10\\S\\3/uL 0.0-0.7 BASOPHIL # (test code = BA#) 0.0 10\\S\\3/uL 0.0-0.3 IG # (test code = IG#) 0.15 10\\S\\3/uL 0.00-0.06 H NRBC # (test code = NRBC#) 0.00 10\\S\\3/uL 0.00-0.01 NEUTROPH % (test code = NE%) 86.0 % 35.0-73.0 H LYMPH % (test code = LY%) 8.0 % 20.0-55.0 L MONO % (test code = MO%) 4.8 % 2.5-10.0 EOSINOPH % (test code = EO%) 0.0 % 0.0-5.0 BASOPHIL % (test code = BA%) 0.1 % 0.0-2.0 IG % (test code = IG%) 1.1 % 0.0-0.8 H NRBC% (test code = NRBC%) 0.0 % 0.0-0.2 MANDIFF (test code = MDIFF) NO NO RBC MORPH (test code = RBCMOR) NORMAL BLOOD [id number] 22:52:00 Test Item Value Reference Range Interpretation Comments Culture Observations (test NO GROWTH AFTER 5 code = COB1) DAYS BLOOD [id number] 22:52:00 Test Item Value Reference Range Interpretation Comments Culture Observations (test NO GROWTH AFTER 5 code = COB1) DAYS GLUCOMETER GLUCOSE- LAB USE [id number] 20:18:00 Test Item Value Reference Range Interpretation Comments GLUCOMETER (test code 132 mg/dL 70-100 H CLEANE D METERMeter ID: = [facility] [place]) [id number] tor: [id number] [id number] 16:40:00 Test Item Value Reference Range Interpretation Comments TROPONIN I (test code = A84) <0.015 ng/mL 0.000-0.045 GLUCOMETER GLUCOSE- LAB USE [id number] 16:22:00 Test Item Value Reference Range Interpretation Comments GLUCOMETER (test code = 154 mg/dL 70-100 H Mete r ID: GMG) [id number] tor: [address] [id number] 15:13:00 Test Item Value Reference Range Interpretation Comments D-DIMER (test code = 266 ng/mL D-DU 0-234 H DDI) D-DIMER COMMENT (test *Level to rule out code = DDCOM) DVT or PE: <235 ng/mL D-DU* PRO TIME AND [id number] 15:13:00 Test Item Value Reference Range Interpretation Comments PT (test code = 14.6 s 9.8-13.6 H TT) INR (test code = 1.3 INR) INRH (test code = SUGGESTED THERAPEUTIC INRH) RANGE FOR INR: 2.5 - 3.5 For Patients with Prosthetic Valves or Patients with recurrent Thromboembolic Events 2.0 - 3.0 For Most Other Applications PTT (test code = 29.8 s 20.2-38.0 PTT) PTTH (test code = To monitor the PTTH) effectiveness of heparin, we offer the Anti-Xa (Heparin Assay). It can be used for either unfractionated or LMW Heparin. Order Code is ANTI-XA GLUCOMETER GLUCOSE- LAB USE [id number] 12:06:00 Test Item Value Reference Range Interpretation Comments GLUCOMETER (test code = 123 mg/dL 70-100 H Mete r ID: GMG) [id number] tor: [address] C-REACTIVE PROTEIN [id number] 08:20:00 Test Item Value Reference Range Interpretation Comments CRP QUANT (test code 65.4 mg/L 0.0-2.9 H = CRPQ) Method Change (test Please note the code = METHOD) change in Method and the reference range COMPREHENSIVE METABOLIC [id number] 08:19:00 Test Item Value Reference Range Interpretation Comments GLUCOSE (test code = 102 mg/dL 75-100 H 06D) SODIUM (test code = 142 mmol/L 136-145 01A) POTASSIUM (test code = 3.7 mmol/L 3.6-5.1 01B) CHLORIDE (test code = 108 mmol/L 98-107 H 04A) CO2 (test code = 02A) 25 mmol/L 22-32 ANION GAP (test code = 12.7 mmol/L ANG) BUN (test code = 05D) 19 mg/dL 7-18 H CREATININE (test code 0.7 mg/dL 0.7-1.3 = 03E) GFR (test code = GFR) 123 mL/min/1.73m\\S\\2 >=90 EGFR (test code = eGFR BY CKD-EPI EGFR) CALCULATION IS NOT RECOMMENDED FOR PATIENTS UNDER 18 YEARS OF AGE. BUN/CREA (test code = 28 12-20 H BCR) CALCIUM (test code = 8.6 mg/dL 8.3-9.5 09D) BILI TOTAL (test code 1.0 mg/dL 0.2-1.0 = 11A) PROTEIN (test code = 6.7 g/dL 6.4-8.2 07D) ALBUMIN (test code = 2.5 g/dL 3.5-4.8 L 08D) GLOBULIN (test code = 4.2 g/dL 1.5-3.8 H GLB) ALB/GLOB (test code = 0.6 1.0-2.6 L AGRR) ALK PHOS (test code = 65 IU/L 42-121 35A) AST (test code = 30A) 60 IU/L <=42 H ALT (test code = 31A) 93 IU/L <=78 H [id number] 08:19:00 Test Item Value Reference Range Interpretation Comments FERRITIN (test code = A19) 538.4 ng/mL 26.0-388.0 H LDH-LACTIC [id number] 08:19:00 Test Item Value Reference Range Interpretation Comments LDH (test code = 33A) 438 IU/L 100-190 H [id number] 08:19:00 Test Item Value Reference Range Interpretation Comments MAGNESIUM (test code = 48A) 2.1 mg/dL 1.8-2.4 LEVETIRACETAM (KEPPRA) [id number] 08:16:00 Test Item Value Reference Range Interpretation Comments LEVETIRACETAM (test code 16.0 ug/mL = LEVET) LEVETEC (test code = LEVETIRACETAM LEVETC) LEVEL THEREPEUTIC LEVELS Drug dosage Trough (ug/mL) Peak (ug/mL) 500 mg BID 3.1-10.0 10.0-25.0 1000 mg BID 4.9-37.1 30.0-40.0 1500 mg BID 7.0-34.0 36.1-70.0 Toxic Level not established CBC (INCLUDES AUTOMATED DIFFERENTIAL)2020-05-11 07:43:00 Test Item Value Reference Range Interpretation Comments WBC (test code = WBC) 13.4 10\\S\\3/uL 4.5-11.0 H RBC (test code = RBC) 4.01 10\\S\\6/uL 4.30-5.70 L HGB (test code = HBG) 11.9 g/dL 14.0-18.0 L HCT (test code = HCT) 35.7 % 35.0-46.0 MCV (test code = MCV) 89.0 fL 80.0-94.0 MCH (test code = MCH) 29.7 pg 27.0-31.0 MCHC (test code = MCHC) 33.3 g/dL 32.0-36.0 RDW (test code = RDW) 11.5 % 11.5-14.5 PLT (test code = PLT) 404 10\\S\\3/uL 130-400 H MPV (test code = MPV) 10.1 fL 9.4-12.4 NEUTROP # (test code = NE#) 11.1 10\\S\\3/uL 2.0-8.0 H LYMPH # (test code = LY#) 1.1 10\\S\\3/uL 1.2-4.0 L MONOCYTE # (test code = MO#) 1.1 10\\S\\3/uL 0.0-1.1 EOSINOPH # (test code = EO#) 0.0 10\\S\\3/uL 0.0-0.7 BASOPHIL # (test code = BA#) 0.0 10\\S\\3/uL 0.0-0.3 IG # (test code = IG#) 0.13 10\\S\\3/uL 0.00-0.06 H NRBC # (test code = NRBC#) 0.00 10\\S\\3/uL 0.00-0.01 NEUTROPH % (test code = NE%) 82.7 % 35.0-73.0 H LYMPH % (test code = LY%) 8.1 % 20.0-55.0 L MONO % (test code = MO%) 8.1 % 2.5-10.0 EOSINOPH % (test code = EO%) 0.0 % 0.0-5.0 BASOPHIL % (test code = BA%) 0.1 % 0.0-2.0 IG % (test code = IG%) 1.0 % 0.0-0.8 H NRBC% (test code = NRBC%) 0.0 % 0.0-0.2 MANDIFF (test code = MDIFF) NO NO RBC MORPH (test code = RBCMOR) NORMAL C-REACTIVE PROTEIN [id number] 06:21:00 Test Item Value Reference Range Interpretation Comments CRP QUANT (test code 65.4 mg/L 0.0-2.9 H = CRPQ) Method Change (test Please note the code = METHOD) change in Method and the reference range LEVETIRACETAM (KEPPRA) [id number] 06:20:00 Test Item Value Reference Range Interpretation Comments LEVETIRACETAM (test code 16.0 ug/mL = LEVET) LEVETEC (test code = LEVETIRACETAM LEVETC) LEVEL THEREPEUTIC LEVELS Drug dosage Trough (ug/mL) Peak (ug/mL) 500 mg BID 3.1-10.0 10.0-25.0 1000 mg BID 4.9-37.1 30.0-40.0 1500 mg BID 7.0-34.0 36.1-70.0 Toxic Level not established LDH-LACTIC [id number] 06:15:00 Test Item Value Reference Range Interpretation Comments LDH (test code = 33A) 438 IU/L 100-190 H [id number] 06:15:00 Test Item Value Reference Range Interpretation Comments FERRITIN (test code = A19) 538.4 ng/mL 26.0-388.0 H COMPREHENSIVE METABOLIC [id number] 05:52:00 Test Item Value Reference Range Interpretation Comments GLUCOSE (test code = 102 mg/dL 75-100 H 06D) SODIUM (test code = 142 mmol/L 136-145 01A) POTASSIUM (test code = 3.7 mmol/L 3.6-5.1 01B) CHLORIDE (test code = 108 mmol/L 98-107 H 04A) CO2 (test code = 02A) 25 mmol/L 22-32 ANION GAP (test code = 12.7 mmol/L ANG) BUN (test code = 05D) 19 mg/dL 7-18 H CREATININE (test code 0.7 mg/dL 0.7-1.3 = 03E) GFR (test code = GFR) 123 mL/min/1.73m\\S\\2 >=90 GFR 143 mL/min/1.73m\\S\\2 >=90 (test code = GFRAA) EGFR (test code = eGFR BY CKD-EPI EGFR) CALCULATION IS NOT RECOMMENDED FOR PATIENTS UNDER 18 YEARS OF AGE. BUN/CREA (test code = 28 12-20 H BCR) CALCIUM (test code = 8.6 mg/dL 8.3-9.5 09D) BILI TOTAL (test code 1.0 mg/dL 0.2-1.0 = 11A) PROTEIN (test code = 6.7 g/dL 6.4-8.2 07D) ALBUMIN (test code = 2.5 g/dL 3.5-4.8 L 08D) GLOBULIN (test code = 4.2 g/dL 1.5-3.8 H GLB) ALB/GLOB (test code = 0.6 1.0-2.6 L AGRR) ALK PHOS (test code = 65 IU/L 42-121 35A) AST (test code = 30A) 60 IU/L <=42 H ALT (test code = 31A) 93 IU/L <=78 H [id number] 05:48:00 Test Item Value Reference Range Interpretation Comments MAGNESIUM (test code = 48A) 2.1 mg/dL 1.8-2.4 CBC (INCLUDES AUTOMATED DIFFERENTIAL)2020-05-11 05:40:00 Test Item Value Reference Range Interpretation Comments WBC (test code = WBC) 13.4 10\\S\\3/uL 4.5-11.0 H RBC (test code = RBC) 4.01 10\\S\\6/uL 4.30-5.70 L HGB (test code = HBG) 11.9 g/dL 14.0-18.0 L HCT (test code = HCT) 35.7 % 35.0-46.0 MCV (test code = MCV) 89.0 fL 80.0-94.0 MCH (test code = MCH) 29.7 pg 27.0-31.0 MCHC (test code = MCHC) 33.3 g/dL 32.0-36.0 RDW (test code = RDW) 11.5 % 11.5-14.5 PLT (test code = PLT) 404 10\\S\\3/uL 130-400 H MPV (test code = MPV) 10.1 fL 9.4-12.4 NEUTROP # (test code = NE#) 11.1 10\\S\\3/uL 2.0-8.0 H LYMPH # (test code = LY#) 1.1 10\\S\\3/uL 1.2-4.0 L MONOCYTE # (test code = MO#) 1.1 10\\S\\3/uL 0.0-1.1 EOSINOPH # (test code = EO#) 0.0 10\\S\\3/uL 0.0-0.7 BASOPHIL # (test code = BA#) 0.0 10\\S\\3/uL 0.0-0.3 IG # (test code = IG#) 0.13 10\\S\\3/uL 0.00-0.06 H NRBC # (test code = NRBC#) 0.00 10\\S\\3/uL 0.00-0.01 NEUTROPH % (test code = NE%) 82.7 % 35.0-73.0 H LYMPH % (test code = LY%) 8.1 % 20.0-55.0 L MONO % (test code = MO%) 8.1 % 2.5-10.0 EOSINOPH % (test code = EO%) 0.0 % 0.0-5.0 BASOPHIL % (test code = BA%) 0.1 % 0.0-2.0 IG % (test code = IG%) 1.0 % 0.0-0.8 H NRBC% (test code = NRBC%) 0.0 % 0.0-0.2 MANDIFF (test code = MDIFF) NO NO RBC MORPH (test code = RBCMOR) NORMAL COMPREHENSIVE METABOLIC [id number] 05:22:00 Test Item Value Reference Range Interpretation Comments GLUCOSE (test code = 106 mg/dL 75-100 H 06D) SODIUM (test code = 143 mmol/L 136-145 01A) POTASSIUM (test code = 3.8 mmol/L 3.6-5.1 01B) CHLORIDE (test code = 110 mmol/L 98-107 H 04A) CO2 (test code = 02A) 27 mmol/L 22-32 ANION GAP (test code = 9.8 mmol/L ANG) BUN (test code = 05D) 22 mg/dL 7-18 H CREATININE (test code 0.7 mg/dL 0.7-1.3 = 03E) GFR (test code = GFR) 124 mL/min/1.73m\\S\\2 >=90 GFR 144 mL/min/1.73m\\S\\2 >=90 (test code = GFRAA) EGFR (test code = eGFR BY CKD-EPI EGFR) CALCULATION IS NOT RECOMMENDED FOR PATIENTS UNDER 18 YEARS OF AGE. BUN/CREA (test code = 33 12-20 H BCR) CALCIUM (test code = 8.7 mg/dL 8.3-9.5 09D) BILI TOTAL (test code 0.7 mg/dL 0.2-1.0 = 11A) PROTEIN (test code = 6.7 g/dL 6.4-8.2 07D) ALBUMIN (test code = 2.7 g/dL 3.5-4.8 L 08D) GLOBULIN (test code = 4.0 g/dL 1.5-3.8 H GLB) ALB/GLOB (test code = 0.7 1.0-2.6 L AGRR) ALK PHOS (test code = 68 IU/L 42-121 35A) AST (test code = 30A) 66 IU/L <=42 H ALT (test code = 31A) 98 IU/L <=78 H [id number] 05:16:00 Test Item Value Reference Range Interpretation Comments MAGNESIUM (test code = 48A) 2.4 mg/dL 1.8-2.4 CBC (INCLUDES AUTOMATED DIFFERENTIAL)2020-05-10 05:09:00 Test Item Value Reference Range Interpretation Comments WBC (test code = WBC) 11.7 10\\S\\3/uL 4.5-11.0 H RBC (test code = RBC) 4.30 10\\S\\6/uL 4.30-5.70 HGB (test code = HBG) 12.5 g/dL 14.0-18.0 L HCT (test code = HCT) 38.5 % 35.0-46.0 MCV (test code = MCV) 89.5 fL 80.0-94.0 MCH (test code = MCH) 29.1 pg 27.0-31.0 MCHC (test code = MCHC) 32.5 g/dL 32.0-36.0 RDW (test code = RDW) 11.7 % 11.5-14.5 PLT (test code = PLT) 376 10\\S\\3/uL 130-400 MPV (test code = MPV) 10.1 fL 9.4-12.4 NEUTROP # (test code = NE#) 9.0 10\\S\\3/uL 2.0-8.0 H LYMPH # (test code = LY#) 1.7 10\\S\\3/uL 1.2-4.0 MONOCYTE # (test code = MO#) 0.9 10\\S\\3/uL 0.0-1.1 EOSINOPH # (test code = EO#) 0.0 10\\S\\3/uL 0.0-0.7 BASOPHIL # (test code = BA#) 0.0 10\\S\\3/uL 0.0-0.3 IG # (test code = IG#) 0.09 10\\S\\3/uL 0.00-0.06 H NRBC # (test code = NRBC#) 0.00 10\\S\\3/uL 0.00-0.01 NEUTROPH % (test code = NE%) 76.9 % 35.0-73.0 H LYMPH % (test code = LY%) 14.2 % 20.0-55.0 L MONO % (test code = MO%) 8.0 % 2.5-10.0 EOSINOPH % (test code = EO%) 0.0 % 0.0-5.0 BASOPHIL % (test code = BA%) 0.1 % 0.0-2.0 IG % (test code = IG%) 0.8 % 0.0-0.8 NRBC% (test code = NRBC%) 0.0 % 0.0-0.2 MANDIFF (test code = MDIFF) NO NO RBC MORPH (test code = RBCMOR) NORMAL GLUCOMETER GLUCOSE- LAB USE [id number] 20:13:00 Test Item Value Reference Range Interpretation Comments GLUCOMETER (test 127 mg/dL 70-100 H Result Not code = GMG) ConfirmedMeter ID: [id number] tor: [id number] [id number] 07:18:00 Test Item Value Reference Range Interpretation Comments FERRITIN (test code = A19) 737.7 ng/mL 26.0-388.0 H LDH-LACTIC [id number] 07:18:00 Test Item Value Reference Range Interpretation Comments LDH (test code = 33A) 416 IU/L 100-190 H C-REACTIVE PROTEIN [id number] 07:07:00 Test Item Value Reference Range Interpretation Comments CRP QUANT (test code 38.5 mg/L 0.0-2.9 H = CRPQ) Method Change (test Please note the code = METHOD) change in Method and the reference range COMPREHENSIVE METABOLIC [id number] 06:51:00 Test Item Value Reference Range Interpretation Comments GLUCOSE (test code = 105 mg/dL 75-100 H 06D) SODIUM (test code = 142 mmol/L 136-145 01A) POTASSIUM (test code = 3.5 mmol/L 3.6-5.1 L 01B) CHLORIDE (test code = 108 mmol/L 98-107 H 04A) CO2 (test code = 02A) 27 mmol/L 22-32 ANION GAP (test code = 10.5 mmol/L ANG) BUN (test code = 05D) 23 mg/dL 7-18 H CREATININE (test code 0.7 mg/dL 0.7-1.3 = 03E) GFR (test code = GFR) 124 mL/min/1.73m\\S\\2 >=90 GFR 143 mL/min/1.73m\\S\\2 >=90 (test code = GFRAA) EGFR (test code = eGFR BY CKD-EPI EGFR) CALCULATION IS NOT RECOMMENDED FOR PATIENTS UNDER 18 YEARS OF AGE. BUN/CREA (test code = 34 12-20 H BCR) CALCIUM (test code = 8.3 mg/dL 8.3-9.5 09D) BILI TOTAL (test code 0.5 mg/dL 0.2-1.0 = 11A) PROTEIN (test code = 6.8 g/dL 6.4-8.2 07D) ALBUMIN (test code = 2.7 g/dL 3.5-4.8 L 08D) GLOBULIN (test code = 4.1 g/dL 1.5-3.8 H GLB) ALB/GLOB (test code = 0.7 1.0-2.6 L AGRR) ALK PHOS (test code = 66 IU/L 42-121 35A) AST (test code = 30A) 59 IU/L <=42 H ALT (test code = 31A) 86 IU/L <=78 H [id number] 06:46:00 Test Item Value Reference Range Interpretation Comments MAGNESIUM (test code = 48A) 2.3 mg/dL 1.8-2.4 CBC (INCLUDES AUTOMATED DIFFERENTIAL)2020-05-09 06:40:00 Test Item Value Reference Range Interpretation Comments WBC (test code = WBC) 9.9 10\\S\\3/uL 4.5-11.0 RBC (test code = RBC) 4.25 10\\S\\6/uL 4.30-5.70 L HGB (test code = HBG) 12.5 g/dL 14.0-18.0 L HCT (test code = HCT) 36.9 % 35.0-46.0 MCV (test code = MCV) 86.8 fL 80.0-94.0 MCH (test code = MCH) 29.4 pg 27.0-31.0 MCHC (test code = MCHC) 33.9 g/dL 32.0-36.0 RDW (test code = RDW) 11.7 % 11.5-14.5 PLT (test code = PLT) 350 10\\S\\3/uL 130-400 MPV (test code = MPV) 10.4 fL 9.4-12.4 NEUTROP # (test code = NE#) 7.1 10\\S\\3/uL 2.0-8.0 LYMPH # (test code = LY#) 1.8 10\\S\\3/uL 1.2-4.0 MONOCYTE # (test code = MO#) 0.9 10\\S\\3/uL 0.0-1.1 EOSINOPH # (test code = EO#) 0.0 10\\S\\3/uL 0.0-0.7 BASOPHIL # (test code = BA#) 0.0 10\\S\\3/uL 0.0-0.3 IG # (test code = IG#) 0.06 10\\S\\3/uL 0.00-0.06 NRBC # (test code = NRBC#) 0.00 10\\S\\3/uL 0.00-0.01 NEUTROPH % (test code = NE%) 72.0 % 35.0-73.0 LYMPH % (test code = LY%) 18.6 % 20.0-55.0 L MONO % (test code = MO%) 8.7 % 2.5-10.0 EOSINOPH % (test code = EO%) 0.0 % 0.0-5.0 BASOPHIL % (test code = BA%) 0.1 % 0.0-2.0 IG % (test code = IG%) 0.6 % 0.0-0.8 NRBC% (test code = NRBC%) 0.0 % 0.0-0.2 MANDIFF (test code = MDIFF) NO NO RBC MORPH (test code = RBCMOR) NORMAL [id number] 16:53:00 Test Item Value Reference Range Interpretation Comments FERRITIN (test code = A19) 878.2 ng/mL 26.0-388.0 H LDH-LACTIC [id number] 16:53:00 Test Item Value Reference Range Interpretation Comments LDH (test code = 33A) 425 IU/L 100-190 H LIVER [id number] 16:53:00 Test Item Value Reference Range Interpretation Comments BILI TOTAL (test code = 11A) 0.8 mg/dL 0.2-1.0 BILI DIRCT (test code = 12A) 0.2 mg/dL 0.0-0.2 BILI INDIR (test code = BILII) 0.6 mg/dL <=0.8 PROTEIN (test code = 07D) 7.1 g/dL 6.4-8.2 ALBUMIN (test code = 08D) 2.8 g/dL 3.5-4.8 L GLOBULIN (test code = GLB) 4.3 g/dL 1.5-3.8 H ALB/GLOB (test code = AGRR) 0.7 1.0-2.6 L ALK PHOS (test code = 35A) 70 IU/L 42-121 AST (test code = 30A) 62 IU/L <=42 H ALT (test code = 31A) 88 IU/L <=78 H TROPONIN [id number] 16:46:00 Test Item Value Reference Range Interpretation Comments TROPONIN I (test code = A84) <0.015 ng/mL 0.000-0.045 DIRECT STREP GROUP [id number] 11:01:00 Test Item Value Reference Range Interpretation Comments Culture Observations NO BETA HEMOLYTIC (test code = COB1) STREPTOCOCCUS ISOLATED Direct Exam (test code NEGATIVE FOR STREP A = DE1) ANTIGEN [id number] 06:01:00 Test Item Value Reference Range Interpretation Comments MAGNESIUM (test code = 48A) 2.3 mg/dL 1.8-2.4 COMPREHENSIVE METABOLIC [id number] 06:01:00 Test Item Value Reference Range Interpretation Comments GLUCOSE (test code = 125 mg/dL 75-100 H 06D) SODIUM (test code = 140 mmol/L 136-145 01A) POTASSIUM (test code = 3.6 mmol/L 3.6-5.1 01B) CHLORIDE (test code = 108 mmol/L 98-107 H 04A) CO2 (test code = 02A) 27 mmol/L 22-32 ANION GAP (test code = 8.6 mmol/L ANG) BUN (test code = 05D) 22 mg/dL 7-18 H CREATININE (test code 0.7 mg/dL 0.7-1.3 = 03E) GFR (test code = GFR) 121 mL/min/1.73m\\S\\2 >=90 GFR 141 mL/min/1.73m\\S\\2 >=90 (test code = GFRAA) EGFR (test code = eGFR BY CKD-EPI EGFR) CALCULATION IS NOT RECOMMENDED FOR PATIENTS UNDER 18 YEARS OF AGE. BUN/CREA (test code = 31 12-20 H BCR) CALCIUM (test code = 8.5 mg/dL 8.3-9.5 09D) BILI TOTAL (test code 0.6 mg/dL 0.2-1.0 = 11A) PROTEIN (test code = 6.8 g/dL 6.4-8.2 07D) ALBUMIN (test code = 2.7 g/dL 3.5-4.8 L 08D) GLOBULIN (test code = 4.1 g/dL 1.5-3.8 H GLB) ALB/GLOB (test code = 0.7 1.0-2.6 L AGRR) ALK PHOS (test code = 68 IU/L 42-121 35A) AST (test code = 30A) 75 IU/L <=42 H ALT (test code = 31A) 89 IU/L <=78 H CBC (INCLUDES AUTOMATED DIFFERENTIAL)2020-05-08 05:56:00 Test Item Value Reference Range Interpretation Comments WBC (test code = WBC) 9.5 10\\S\\3/uL 4.5-11.0 RBC (test code = RBC) 4.16 10\\S\\6/uL 4.30-5.70 L HGB (test code = HBG) 12.2 g/dL 14.0-18.0 L HCT (test code = HCT) 36.2 % 35.0-46.0 MCV (test code = MCV) 87.0 fL 80.0-94.0 MCH (test code = MCH) 29.3 pg 27.0-31.0 MCHC (test code = MCHC) 33.7 g/dL 32.0-36.0 RDW (test code = RDW) 11.7 % 11.5-14.5 PLT (test code = PLT) 295 10\\S\\3/uL 130-400 MPV (test code = MPV) 11.0 fL 9.4-12.4 NEUTROP # (test code = NE#) 7.8 10\\S\\3/uL 2.0-8.0 LYMPH # (test code = LY#) 1.0 10\\S\\3/uL 1.2-4.0 L MONOCYTE # (test code = MO#) 0.7 10\\S\\3/uL 0.0-1.1 EOSINOPH # (test code = EO#) 0.0 10\\S\\3/uL 0.0-0.7 BASOPHIL # (test code = BA#) 0.0 10\\S\\3/uL 0.0-0.3 IG # (test code = IG#) 0.06 10\\S\\3/uL 0.00-0.06 NRBC # (test code = NRBC#) 0.00 10\\S\\3/uL 0.00-0.01 NEUTROPH % (test code = NE%) 81.6 % 35.0-73.0 H LYMPH % (test code = LY%) 10.9 % 20.0-55.0 L MONO % (test code = MO%) 6.8 % 2.5-10.0 EOSINOPH % (test code = EO%) 0.0 % 0.0-5.0 BASOPHIL % (test code = BA%) 0.1 % 0.0-2.0 IG % (test code = IG%) 0.6 % 0.0-0.8 NRBC% (test code = NRBC%) 0.0 % 0.0-0.2 MANDIFF (test code = MDIFF) NO NO RBC MORPH (test code = RBCMOR) NORMAL [id number] 05:13:00 Test Item Value Reference Range Interpretation Comments D-DIMER (test code = 328 ng/mL D-DU 0-234 H DDI) D-DIMER COMMENT (test *Level to rule out code = DDCOM) DVT or PE: <235 ng/mL D-DU* CBC (INCLUDES AUTOMATED DIFFERENTIAL)2020-05-07 04:59:00 Test Item Value Reference Range Interpretation Comments WBC (test code = WBC) 6.3 10\\S\\3/uL 4.5-11.0 RBC (test code = RBC) 4.17 10\\S\\6/uL 4.30-5.70 L HGB (test code = HBG) 12.1 g/dL 14.0-18.0 L HCT (test code = HCT) 36.2 % 35.0-46.0 MCV (test code = MCV) 86.8 fL 80.0-94.0 MCH (test code = MCH) 29.0 pg 27.0-31.0 MCHC (test code = MCHC) 33.4 g/dL 32.0-36.0 RDW (test code = RDW) 11.6 % 11.5-14.5 PLT (test code = PLT) 218 10\\S\\3/uL 130-400 MPV (test code = MPV) 10.3 fL 9.4-12.4 NEUTROP # (test code = NE#) 5.2 10\\S\\3/uL 2.0-8.0 LYMPH # (test code = LY#) 0.6 10\\S\\3/uL 1.2-4.0 L MONOCYTE # (test code = MO#) 0.4 10\\S\\3/uL 0.0-1.1 EOSINOPH # (test code = EO#) 0.0 10\\S\\3/uL 0.0-0.7 BASOPHIL # (test code = BA#) 0.0 10\\S\\3/uL 0.0-0.3 IG # (test code = IG#) 0.03 10\\S\\3/uL 0.00-0.06 NRBC # (test code = NRBC#) 0.00 10\\S\\3/uL 0.00-0.01 NEUTROPH % (test code = NE%) 83.5 % 35.0-73.0 H LYMPH % (test code = LY%) 10.1 % 20.0-55.0 L MONO % (test code = MO%) 5.9 % 2.5-10.0 EOSINOPH % (test code = EO%) 0.0 % 0.0-5.0 BASOPHIL % (test code = BA%) 0.0 % 0.0-2.0 IG % (test code = IG%) 0.5 % 0.0-0.8 NRBC% (test code = NRBC%) 0.0 % 0.0-0.2 MANDIFF (test code = MDIFF) NO NO RBC MORPH (test code = RBCMOR) NORMAL [id number] 19:03:00 Test Item Value Reference Range Interpretation Comments D-DIMER (test code = 273 ng/mL D-DU 0-234 H DDI) D-DIMER COMMENT (test *Level to rule out code = DDCOM) DVT or PE: <235 ng/mL D-DU* PRO TIME AND [id number] 19:03:00 Test Item Value Reference Range Interpretation Comments PT (test code = 13.0 s 9.8-13.6 TT) INR (test code = 1.1 INR) INRH (test code = SUGGESTED THERAPEUTIC INRH) RANGE FOR INR: 2.5 - 3.5 For Patients with Prosthetic Valves or Patients with recurrent Thromboembolic Events 2.0 - 3.0 For Most Other Applications PTT (test code = 28.7 s 20.2-38.0 PTT) PTTH (test code = To monitor the PTTH) effectiveness of heparin, we offer the Anti-Xa (Heparin Assay). It can be used for either unfractionated or LMW Heparin. Order Code is ANTI-XA SARS-CoV (RAPID ANTIGEN)2020-05-06 19:03:00 Test Item Value Reference Range Interpretation Comments SARS-CoV (ANTIGEN) POSITIVE NEGATIVE AA (test code = COVAG) COVID AG (test This test has been code = COVAGC) marketed under the FDA Emergency Use Authorization (EUA) to meet challenges of the COVID-19 pandemic. The validation standards normally enforced by the FDA and the [employer] [place] [employer] ([employer]) are more stringent than those required for this test. Therefore, the result should be interpreted with caution and close attention to other clinical and epidemiological data DIRECT INFLUENZA A AND B [id number] 18:59:00 Test Item Value Reference Range Interpretation Comments Direct Exam (test PRESUMPTIVE NEGATIVE FOR code = DE1) THE PRESENCE OF INFLUENZA ANTIGEN BRAIN NATRIURETIC [id number] 18:56:00 Test Item Value Reference Range Interpretation Comments proBNP (test code = PBNP) 308 pg/mL 0-125 H COMPREHENSIVE METABOLIC [id number] 18:54:00 Test Item Value Reference Range Interpretation Comments GLUCOSE (test code = 150 mg/dL 75-100 H 06D) SODIUM (test code = 142 mmol/L 136-145 01A) POTASSIUM (test code = 3.1 mmol/L 3.6-5.1 L 01B) CHLORIDE (test code = 107 mmol/L 98-107 04A) CO2 (test code = 02A) 26 mmol/L 22-32 ANION GAP (test code = 12.1 mmol/L ANG) BUN (test code = 05D) 18 mg/dL 7-18 CREATININE (test code 1.0 mg/dL 0.7-1.3 = 03E) GFR (test code = GFR) 98 mL/min/1.73m\\S\\2 >=90 GFR 114 mL/min/1.73m\\S\\2 >=90 (test code = GFRAA) EGFR (test code = eGFR BY CKD-EPI EGFR) CALCULATION IS NOT RECOMMENDED FOR PATIENTS UNDER 18 YEARS OF AGE. BUN/CREA (test code = 18 12-20 BCR) CALCIUM (test code = 8.6 mg/dL 8.3-9.5 09D) BILI TOTAL (test code 0.5 mg/dL 0.2-1.0 = 11A) PROTEIN (test code = 7.4 g/dL 6.4-8.2 07D) ALBUMIN (test code = 3.2 g/dL 3.5-4.8 L 08D) GLOBULIN (test code = 4.2 g/dL 1.5-3.8 H GLB) ALB/GLOB (test code = 0.8 1.0-2.6 L AGRR) ALK PHOS (test code = 71 IU/L 42-121 35A) AST (test code = 30A) 94 IU/L <=42 H ALT (test code = 31A) 95 IU/L <=78 H CBC (INCLUDES AUTOMATED DIFFERENTIAL)2020-05-06 18:38:00 Test Item Value Reference Range Interpretation Comments WBC (test code = WBC) 8.7 10\\S\\3/uL 4.5-11.0 RBC (test code = RBC) 4.20 10\\S\\6/uL 4.30-5.70 L HGB (test code = HBG) 12.3 g/dL 14.0-18.0 L HCT (test code = HCT) 35.9 % 35.0-46.0 MCV (test code = MCV) 85.5 fL 80.0-94.0 MCH (test code = MCH) 29.3 pg 27.0-31.0 MCHC (test code = MCHC) 34.3 g/dL 32.0-36.0 RDW (test code = RDW) 11.6 % 11.5-14.5 PLT (test code = PLT) 237 10\\S\\3/uL 130-400 MPV (test code = MPV) 10.2 fL 9.4-12.4 NEUTROP # (test code = NE#) 7.7 10\\S\\3/uL 2.0-8.0 LYMPH # (test code = LY#) 0.6 10\\S\\3/uL 1.2-4.0 L MONOCYTE # (test code = MO#) 0.3 10\\S\\3/uL 0.0-1.1 EOSINOPH # (test code = EO#) 0.0 10\\S\\3/uL 0.0-0.7 BASOPHIL # (test code = BA#) 0.0 10\\S\\3/uL 0.0-0.3 IG # (test code = IG#) 0.04 10\\S\\3/uL 0.00-0.06 NRBC # (test code = NRBC#) 0.00 10\\S\\3/uL 0.00-0.01 NEUTROPH % (test code = NE%) 89.1 % 35.0-73.0 H LYMPH % (test code = LY%) 6.5 % 20.0-55.0 L MONO % (test code = MO%) 3.9 % 2.5-10.0 EOSINOPH % (test code = EO%) 0.0 % 0.0-5.0 BASOPHIL % (test code = BA%) 0.0 % 0.0-2.0 IG % (test code = IG%) 0.5 % 0.0-0.8 NRBC% (test code = NRBC%) 0.0 % 0.0-0.2 MANDIFF (test code = MDIFF) NO NO RBC MORPH (test code = RBCMOR) NORMAL URINALYSIS WITH [id number] 17:36:00 Test Item Value Reference Range Interpretation Comments COLOR (test code = COLU) YELLOW YELLOW CLARITY (test code = CLA) CLOUDY CLEAR A GLUCOSE UR (test code = UA GLUCOSE) 1+ NEGATIVE A BILI UR (test code = BILE) NEGATIVE NEGATIVE KETONES UR (test code = BERENICE) 1+ NEGATIVE A SP GRAVITY (test code = SPGR) 1.022 1.005-1.030 PH UR (test code = PH) 6.0 4.5-8.0 PROTEIN UR (test code = PU) 2+ NEGATIVE A UROBIL UR (test code = UROQ) 0.2 EU/dL 0.2-1.0 NITRITE UR (test code = NITRITE) NEGATIVE NEGATIVE BLOOD UR (test code = UA BLOOD) 3+ NEGATIVE A LEUK ES UR (test code = LEUK) 1+ NEGATIVE A WBC UR (test code = UWBC) 2 /HPF 0-3 RBC UR (test code = URBC) 8 /HPF 0-2 H EPITH UR (test code = UEPC) FEW /LPF NONE A BACTERIA UR (test code = UBACT) FEW /HPF NONE A CAST UR (test code = CAST) /LPF NONE CRYSTAL UR (test code = CRYU) / LPF NONE MUCUS UR (test code = MUC) / HPF NONE AMORPH UR (test code = CAMPBELL) / HPF NONE TRICH UR (test code = UTRICH) /HPF NONE YEAST UR (test code = UY) /HPF NONE SPERM UR (test code = USPERM) /HPF NONE"
[2022-06-26] MEDS ORDERED: LEVETIRACETAM 500 MG/5 ML VIAL IV ONE (14:48)
[2022-06-26] MEDS ORDERED: ACETAMINOPHEN 650MG/RECT SUPP PR ONE (14:49)
[2022-06-26] MEDS ORDERED: PIPERACIL/TAZO 3.375 GM VIAL IV ONE (14:49)
[2022-06-26] MEDS ORDERED: NA CHLORIDE 0.9% 200 ML ONE (14:49)
--- NOTE | 2022-06-26 15:01 | RAD REPORT ---
EXAM DESCRIPTION: RAD - Chest Single View - 06/26/2022 2:49 pm CLINICAL HISTORY: Cough;Dyspnea Chest pain. COMPARISON: Chest Single View dated 04/24/2022 FINDINGS: Portable technique limits examination quality. Mild to moderate infiltrate is seen in the right lung base medially. The heart is normal in size. No displaced fractures.Prominent levoscoliosis. IMPRESSION: [id number] right base pneumonia.
[2022-06-26 15:36] LABS: Absolute Lymphocytes (CBC) 0.7 K/uL (0.7-4.9); Hematocrit 43.1 % (39.6-49.0); Lymphocytes % 4.1 % (15.3-44.8); MCV 85.7 fL (80-100); RBC Red Blood Cell Count 5.03 M/uL (4.33-5.43)
[2022-06-26 15:37] LABS: Protime INR 1.09
[2022-06-26 16:14] LABS: SARS-COV-2 RT PCR NEGATIVE (NEGATIVE)
[2022-06-26 16:16] LABS: Potassium 3.8 mEq/L (3.5-5.1)
[2022-06-26 16:17] LABS: Albumin 3.3 g/dL (3.4-5.0); Bilirubin Direct 0.1 mg/dL (0-0.2); Bilirubin Total 0.4 mg/dL (0.2-1.0); Protein, Total 8.7 g/dL (6.4-8.2); Troponin High Sensitivity 11.3 (<58.9)
[2022-06-26 16:18] LABS: Magnesium 2.3
--- NOTE | 2022-06-26 16:26 | ER ---
Nurse's Notes [facility] Name: Kashif Lea Age: 36 yrs Sex: Male : 1985 Arrival Date: 06/26/2022 Time: 13:53 Bed 4 Private MD: Diagnosis: Cerebral palsy, unspecified;Fever, unspecified;Sepsis, unspecified organism;Pneumonia due to other specified bacteria;Elevated white blood cell count;Epileptic seizures related to external causes, not intractable Presentation: 06/26 14:03 Chief complaint: four seizures today recorded by caregiver, stated BP 95/63 L arm 82/54 vg1 R arm with increased heart rate. Pt was not given formula or fluids via pegtube; was given water with meds. Pt was given 400 mg of Ibuprofen at 0900. Temporal temperature at home was 101.6 this morning. Coronavirus screen: Vaccine status: Patient reports being unvaccinated. Client denies travel out of the [place] in the last 14 days. Ebola Screen: Patient negative for fever greater than or equal to 101.5 degrees Fahrenheit, and additional compatible Ebola Virus Disease symptoms Patient denies exposure to infectious person. Patient denies travel to an Ebola-affected area in the 21 days before illness onset. Initial Sepsis Screen: Does the patient meet any 2 criteria? No. Patient's initial sepsis screen is negative. Does the patient have a suspected source of infection? No. Patient's initial sepsis screen is negative. Risk Assessment: Do you want to hurt yourself or someone else? Patient reports no desire to harm self or others. Onset of symptoms was June 26, 2022. 14:03 Method Of Arrival: Wheelchair vg1 14:03 Acuity: JESENIA 2 vg1 Historical: - Allergies: 14:12 No Known Allergies; vg1 - PMHx: 14:12 Cerebral Palsy; scoliosis; Seizure; vg1 - Immunization history:: Client reports having NOT received the Covid vaccine. - Social history:: Smoking status: Patient denies any tobacco usage or history of. - Family history:: not pertinent. Screenin:29 [facility] ED Fall Risk Assessment (Adult) Score/Fall Risk Level 3 or more points = High hb Risk Oriented to surroundings, Maintained a safe environment, Educated pt \T\ family on fall prevention, incl call for assistance when getting out of bed. Abuse screen: Denies threats or abuse. Denies injuries from another. Nutritional screening: No deficits noted. Tuberculosis screening: No symptoms or risk factors identified. Assessment: 15:30 General: Appears in no apparent distress. Behavior is calm, cooperative. Pain: Unable hb to use pain scale. FLACC scale score is 0 out of 10. Neuro: Level of Consciousness is awake, alert, obeys commands, Oriented to person. Cardiovascular: Patient's skin is warm and dry. Respiratory: Respiratory effort is even, unlabored, Respiratory pattern is regular, symmetrical. GI: No signs and/or symptoms were reported involving the gastrointestinal system. : No signs and/or symptoms were reported regarding the genitourinary system. EENT: No signs and/or symptoms were reported regarding the EENT system. Derm: Skin is pink, warm \T\ dry. Musculoskeletal: No signs and/or symptoms reported regarding the musculoskeletal system. 18:30 Reassessment: Patient appears in no apparent distress at this time. Patient and/or ph family updated on plan of care and expected duration. Pain level reassessed. Pt asleep w/ equal and unlabored respirations, sister at bedside. 19:00 General: Appears in no apparent distress. comfortable, well groomed, well developed, pf1 Behavior is calm, cooperative, quiet. 19:00 Pain: Denies pain. Neuro: Patient sleeping at this time, sister at BS. Neuro: Reports pf1 Sister report patient had seizure last night with vomiting x 1 and 3 seizures today. Sister stated after patient had a seizure last night he started coughing with gurgling sounds like he had aspirated and started running a fever today.. Cardiovascular: Capillary refill < 3 seconds Patient's skin is warm and dry. Rhythm is sinus tachycardia. Respiratory: Airway is patent Respiratory effort is even, unlabored, Respiratory pattern is regular, symmetrical. Respiratory: Parent/caregiver reports the patient having cough that is since last night. GI: Parent/caregiver reports the patient having vomiting, since one time last night. GI: Parent/caregiver reports the patient having Patient has a peg tube in place. : No deficits noted. No signs and/or symptoms were reported regarding the genitourinary system. EENT: No deficits noted. No signs and/or symptoms were reported regarding the EENT system. EENT: No deficits noted. No signs and/or symptoms were reported regarding the EENT system. Derm: Skin is pink, warm \T\ dry. Musculoskeletal:. 20:00 Reassessment: Patient appears in no apparent distress at this time. No changes from pf1 previously documented assessment. Patient and/or family updated on plan of care and expected duration. Pain level reassessed. Vital Signs: 14:03 BP 85 / 61; Pulse 143; Resp 22; Temp 100(A); Pulse Ox 94% on R/A; Weight 64.86 kg; vg1 Height 5 ft. 11 in. ; 16:30 BP 97 / 64; Pulse 132; Resp 16; Pulse Ox 95% on R/A; ph 17:14 BP 93 / 70; Pulse 122; Resp 16; Temp 98; Pulse Ox 94% on R/A; ph 18:30 BP 99 / 72; Pulse 106; Resp 20; Pulse Ox 95% on R/A; ph 19:00 BP 99 / 69; Pulse 105; Resp 16; Temp 98.6(A); Pulse Ox 96% on R/A; pf1 20:00 BP 108 / 80; Pulse 108; Resp 14; Pulse Ox 95% on R/A; pf1 14:03 Body Mass Index 19.94 (64.86 kg, 180.34 cm) vg1 ED Course: 10:10 Inserted saline lock: 22 gauge in right antecubital area, using aseptic technique. hb Blood collected. 13:53 Patient arrived in ED. rg4 14:12 Triage completed. vg1 14:14 Douglas Willoughby MD is Attending Physician. quentin 14:50 XRAY Chest (1 view) In Process Unspecified. EDMS 15:29 Leticia Grove, AMY is Primary Nurse. hb 15:29 Arm band placed on. hb 16:15 Pool Nevarez MD is Hospitalizing Provider. quentin 17:13 No provider procedures requiring assistance completed. Patient admitted, IV remains in ph place. 17:14 Patient has correct armband on for positive identification. Bed in low position. Call ph light in reach. Side rails up X2. Seizure precautions initiated. Client placed on continuous cardiac and pulse oximetry monitoring. NIBP monitoring applied. Administered Medications: 15:10 Drug: Keppra IV 1000 mg Route: IV; Rate: per protocol; Site: right antecubital; hb 15:40 Follow up: Response: No adverse reaction; IV Status: Completed infusion ph 15:22 Drug: Acetaminophen [place] Suppository 650 mg Route: [place]; hb 17:13 Follow up: Response: No adverse reaction; Temperature is decreased ph 15:30 Drug: Piperacillin-Tazobactam IVPB 3.375 grams Route: IVPB; Infused Over: 60 mins; hb Site: right antecubital; 16:30 Follow up: Response: No adverse reaction; IV Status: Completed infusion; IV Intake: ph 100ml 17:11 Drug: vancoMYCIN IVPB 1 grams Route: IVPB; Infused Over: 2 hrs; Site: right antecubital;ph 19:28 Follow up: Response: No adverse reaction; IV Status: Completed infusion ph 17:11 Drug: NS 0.9% IV 1000 ml Route: IV; Rate: 1 bolus; Site: right antecubital; ph 19:28 Follow up: Response: No adverse reaction; IV Status: Completed infusion; IV Intake: ph 1000ml 17:11 Drug: Ativan IVP 0.5 mg Route: IVP; Site: right antecubital; ph 19:28 Follow up: Response: No adverse reaction ph 20:47 Drug: NS 0.9% IV 1000 ml Route: IV; Rate: 125 ml/hr; Site: right antecubital; pf1 21:30 Not Given (Physician Discretion): Ativan IVP 0.5 mg IVP once lg3 Medication: 15:31 VIS not applicable for this client. hb Intake: 16:30 IV: 100ml; Total: 100ml. ph 19:28 IV: 1000ml; Total: 1100ml. ph Outcome: 16:25 Decision to Hospitalize by Provider. quentin 21:33 Admitted to Med/surg accompanied by nurse, via stretcher, room 217, Report called to lg3 Aron 21:33 Condition: stable 21:33 Instructed on the need for admit. 21:47 Patient left the ED. 3 Signatures: Dispatcher [employer] EDDouglas Elizabeth MD MD cha Hall, Patricia RN Leticia Bey ph, RN Deepti Bowden4 Lizbet Mckee RN RN lg3 Savanna Buck RN RN vg1 Valencia cuellar RN RN pf1
--- NOTE | 2022-06-26 16:26 | EDPHYS ---
Physician Documentation [facility] Name: Kashif Lea Age: 36 yrs Sex: Male : 1985 Arrival Date: 06/26/2022 Time: 13:53 Bed 4 Private MD: ED Physician Douglas Willoughby HPI: 06/26 14:32 This 36 yrs old Male presents to ER via Wheelchair with complaints of quentin Palpitations, Low BP. 14:32 The patient presents with a history of heart racing. Context: The symptoms occur at quentin rest. Onset: The symptoms/episode began/occurred 2 day(s) ago. Duration: The patient or guardian reports a single episode, that is still ongoing. Modifying factors: The symptoms are aggravated by nothing. The symptoms are alleviated by nothing. Associated signs and symptoms: Pertinent positives: cough, fever, vomiting. Severity of symptoms: At their worst the symptoms were mild moderate in the emergency department the symptoms are unchanged. The patient has experienced similar episodes in the past, several times. Historical: - Allergies: 14:12 No Known Allergies; vg1 - PMHx: 14:12 Cerebral Palsy; scoliosis; Seizure; vg1 - Immunization history:: Client reports having NOT received the Covid vaccine. - Social history:: Smoking status: Patient denies any tobacco usage or history of. - Family history:: not pertinent. ROS: 14:32 Eyes: Negative for injury, pain, redness, and discharge, ENT: Negative for injury, quentin pain, and discharge, Neck: Negative for injury, pain, and swelling, Abdomen/GI: Negative for abdominal pain, nausea, vomiting, diarrhea, and constipation, Back: Negative for injury and pain, : Negative for injury, bleeding, discharge, and swelling, MS/Extremity: Negative for injury and deformity, Skin: Negative for injury, rash, and discoloration, Neuro: Negative for headache, weakness, numbness, tingling, and seizure, Psych: Negative for depression, anxiety, suicide ideation, homicidal ideation, and hallucinations, Allergy/Immunology: Negative for hives, rash, and allergies, Endocrine: Negative for neck swelling, polydipsia, polyuria, polyphagia, and marked weight changes, Hematologic/Lymphatic: Negative for swollen nodes, abnormal bleeding, and unusual bruising. 14:32 Constitutional: Positive for chills, fatigue, fever. 14:32 Cardiovascular: Positive for palpitations. 14:32 Respiratory: Positive for cough, shortness of breath. 14:32 Neuro: Positive for seizure activity, weakness. Exam: 14:32 Constitutional: This is a well developed, well nourished patient who is awake, alert, quentin and in no acute distress. Head/Face: Normocephalic, atraumatic. Eyes: Pupils equal round and reactive to light, extra-ocular motions intact. Lids and lashes normal. Conjunctiva and sclera are non-icteric and not injected. Cornea within normal limits. Periorbital areas with no swelling, redness, or edema. ENT: Nares patent. No nasal discharge, no septal abnormalities noted. Tympanic membranes are normal and external auditory canals are clear. Oropharynx with no redness, swelling, or masses, exudates, or evidence of obstruction, uvula midline. Mucous membranes moist. Neck: Trachea midline, no thyromegaly or masses palpated, and no cervical lymphadenopathy. Supple, full range of motion without nuchal rigidity, or vertebral point tenderness. No Meningismus. Chest/axilla: Normal chest wall appearance and motion. Nontender with no deformity. No lesions are appreciated. Abdomen/GI: Soft, non-tender, with normal bowel sounds. No distension or tympany. No guarding or rebound. No evidence of tenderness throughout. Back: No spinal tenderness. No costovertebral tenderness. Full range of motion. Male : Normal genitalia with no discharge or lesions. Skin: Warm, dry with normal turgor. Normal color with no rashes, no lesions, and no evidence of cellulitis. MS/ Extremity: Pulses equal, no cyanosis. Neurovascular intact. Full, normal range of motion. Neuro: Awake and alert, GCS 15, oriented to person, place, time, and situation. Cranial nerves II-XII grossly intact. Motor strength 5/5 in all extremities. Sensory grossly intact. Cerebellar exam normal. Normal gait. Psych: Awake, alert, with orientation to person, place and time. Behavior, mood, and affect are within normal limits. 14:32 Cardiovascular: Rate: tachycardic, actual rate is 141 bpm, Rhythm: regular, Pulses: Pulses are 4+ in bilateral radial, brachial, femoral, popliteal, posterior tibial and and dorsalis pedis arteries.. Heart sounds: normal, Edema: is not appreciated, JVD: is not appreciated. Vital Signs: 14:03 BP 85 / 61; Pulse 143; Resp 22; Temp 100(A); Pulse Ox 94% on R/A; Weight 64.86 kg; vg1 Height 5 ft. 11 in. ; 16:30 BP 97 / 64; Pulse 132; Resp 16; Pulse Ox 95% on R/A; ph 17:14 BP 93 / 70; Pulse 122; Resp 16; Temp 98; Pulse Ox 94% on R/A; ph 18:30 BP 99 / 72; Pulse 106; Resp 20; Pulse Ox 95% on R/A; ph 19:00 BP 99 / 69; Pulse 105; Resp 16; Temp 98.6(A); Pulse Ox 96% on R/A; pf1 20:00 BP 108 / 80; Pulse 108; Resp 14; Pulse Ox 95% on R/A; pf1 14:03 Body Mass Index 19.94 (64.86 kg, 180.34 cm) vg1 MDM: 14:14 Patient medically screened. [facility] 14:37 NEISHA Risk Score: Not Applicable. Differential diagnosis: dehydration. Data reviewed: [facility] vital signs, nurses notes, old medical records, lab test result(s), EKG, radiologic studies. Consideration of Admission/Observation Patient was admitted/placed on observation. I considered the following discharge prescriptions or medication management in the emergency department Medications were administered in the Emergency Department. See MAR. Test considered but Not performed: CT: ct head not done. Care significantly affected by the following chronic conditions: scoliosis, cp, seizure. 06/26 14:32 Order name: Basic Metabolic Panel; Complete Time: 16:57 [facility] 06/26 14:32 Order name: CBC with Diff; Complete Time: 16:13 [facility] 06/26 14:32 Order name: LFT's; Complete Time: 16:57 [facility] 06/26 14:32 Order name: Magnesium; Complete Time: 16:57 [facility] 06/26 14:32 Order name: NT PRO-BNP; Complete Time: 16:57 [facility] 06/26 14:32 Order name: PT-INR; Complete Time: 16:13 quentin 06/26 14:32 Order name: Troponin HS; Complete Time: 16:57 [facility] 06/26 14:32 Order name: Lipase; Complete Time: 16:57 [facility] 06/26 14:32 Order name: Blood Culture Adult (2) [facility] 06/26 14:32 Order name: Lactate w/ 2H reflex if indic.; Complete Time: 16:57 [facility] 06/26 14:32 Order name: Urinalysis (UA w/ reflexes) [facility] 06/26 14:32 Order name: COVID-19/FLU A+B; Complete Time: 16:57 [facility] 06/26 19:31 Order name: Phosphorus EDMS 06/26 19:31 Order name: Magnesium EDMS 06/26 20:16 Order name: Lactate Sepsis 2 HR Follow-up EDSC 06/26 14:32 Order name: XRAY Chest (1 view); Complete Time: 16:13 [facility] 06/26 14:32 Order name: EKG; Complete Time: 14:33 [facility] 06/26 14:32 Order name: Cardiac monitoring; Complete Time: 15:30 [facility] 06/26 14:32 Order name: EKG - Nurse/Tech; Complete Time: 18:53 [facility] 06/26 14:32 Order name: IV Saline Lock; Complete Time: 15:30 [facility] 06/26 14:32 Order name: Labs collected and sent; Complete Time: 15:30 [facility] 06/26 14:32 Order name: O2 Per Protocol; Complete Time: 15:30 [facility] 06/26 14:32 Order name: O2 Sat Monitoring; Complete Time: 15:30 [facility] 06/26 14:32 Order name: Seizure Precautions; Complete Time: 15:30 [facility] 06/26 16:15 Order name: Misc. Order: hob 45 degrees; Complete Time: 17:11 [facility] Administered Medications: 15:10 Drug: Keppra IV 1000 mg Route: IV; Rate: per protocol; Site: right antecubital; hb 15:40 Follow up: Response: No adverse reaction; IV Status: Completed infusion ph 15:22 Drug: Acetaminophen [place] Suppository 650 mg Route: DE; hb 17:13 Follow up: Response: No adverse reaction; Temperature is decreased ph 15:30 Drug: Piperacillin-Tazobactam IVPB 3.375 grams Route: IVPB; Infused Over: 60 mins; hb Site: right antecubital; 16:30 Follow up: Response: No adverse reaction; IV Status: Completed infusion; IV Intake: ph 100ml 17:11 Drug: vancoMYCIN IVPB 1 grams Route: IVPB; Infused Over: 2 hrs; Site: right antecubital;ph 19:28 Follow up: Response: No adverse reaction; IV Status: Completed infusion ph 17:11 Drug: NS 0.9% IV 1000 ml Route: IV; Rate: 1 bolus; Site: right antecubital; ph 19:28 Follow up: Response: No adverse reaction; IV Status: Completed infusion; IV Intake: ph 1000ml 17:11 Drug: Ativan IVP 0.5 mg Route: IVP; Site: right antecubital; ph 19:28 Follow up: Response: No adverse reaction ph 20:47 Drug: NS 0.9% IV 1000 ml Route: IV; Rate: 125 ml/hr; Site: right antecubital; pf1 21:30 Not Given (Physician Discretion): Ativan IVP 0.5 mg IVP once lg3 Disposition Summary: 06/26/22 16:25 Hospitalization Ordered Hospitalization Status: Inpatient Admission quentin Provider: Pool Nevarez cha Location: Telemetry/[facility] (Inpatient) quentin Condition: Fair quentin Problem: new quentin Symptoms: have improved quentin Bed/Room Type: Standard [facility] Room Assignment: 217(06/26/22 21:04) Diagnosis - Cerebral palsy, unspecified quentin - Fever, unspecified quentin - Sepsis, unspecified organism quentin - Pneumonia due to other specified bacteria quentin - Elevated white blood cell count quentin - Epileptic seizures related to external causes, not intractable quentin Forms: - Medication Reconciliation Form quentin - SBAR form quentin Signatures: Dispatcher [employer] Douglas Silva MD MD cha Hall, Patricia, RN RN ph Garcia, Cindy, RN RN cg Baxter, Heather, RN RN hb Garcia, Victoria, RN RN vg1 finley, Pamala, RN RN pf1 Lizbet Mckee RN lg3 Corrections: (The following items were deleted from the chart) 21:04 16:25 quentin cg
[2022-06-26] MEDS ORDERED: NA CHLORIDE 0.9% 1,000 ML ONE ×2 (17:06→20:51)
[2022-06-26] MEDS ORDERED: LORazepam 2 MG/ML VIAL ONE (17:06)
[2022-06-26] MEDS ORDERED: NA CHLORIDE 0.9% 250 ML ONE (17:06)
[2022-06-26] MEDS ORDERED: VANCOMYCIN 1 GM/VIAL ONE (17:06)
[2022-06-26] MEDS ORDERED: ACETAMINOPHEN 650MG/RECT SUPP PR PRN (18:26)
[2022-06-26] MEDS ORDERED: ONDANSETRON 4 MG/2 ML VIAL IV PRN (18:38)
--- NOTE | 2022-06-26 18:45 | P.HP ---
Certification for Inpatient Patient admitted to: Inpatient With expected LOS: >2 Midnights Patient will require the following post-hospital care: None Practitioner: I am a practitioner with admitting privileges, knowledge of patient current condition, hospital course, and medical plan of care. Services: Services provided to patient in accordance with Admission requirements found in Title 42 Section 412.3 of the Code of Federal Regulations Patient History Date of Service: 06/26/22 Reason for admission: Seizure, hypotension History of Present Illness: Patient is a 36-year-old male with a past medical history significant for seizure disorder, cerebral palsy who presents with complaint of seizures. Patient is nonverbal and unable to relate any history. Family reported that patient had 4 seizure episodes this morning and patient's blood pressure was noted to be low. No other signs and symptoms reported. Symptoms are aggravated or relieved by nothing. Patient was brought to the hospital for medical evaluation. - Past Medical/Surgical History -: Celebra palsy -: Seizures. Past Surgical History: Reviewed- Non-Contributory - Family History Family History: Reviewed- Non-Contributory - Social History Smoking Status: Never smoker CD- Drugs: No Caffeine use: No Place of Residence: Home Review of Systems is unable to be obtained (Patient is nonverbal.) Physical Examination - Physical Exam General: Unresponsive (Patient is unresponsive to verbal commands. Currently not current.) HEENT: Atraumatic, PERRLA, Mucous membr. moist/pink, EOMI, Sclerae nonicteric Neck: Supple, 2+ carotid pulse no bruit, No LAD, Without JVD or thyroid abnormality Respiratory: Clear to auscultation bilaterally, Diminished Cardiovascular: No edema, Regular rate/rhythm, Normal S1 S2 Capillary refill: <2 Seconds Gastrointestinal: Normal bowel sounds, Soft and benign, No tenderness Musculoskeletal: No clubbing, No swelling, No tenderness Integumentary: No rashes, No breakdown, No significant lesion Neurological: Normal tone, Normal affect, Abnormal gait, Abnormal speech (Patient is nonverbal.), Abnormal strength Lymphatics: No axilla or inguinal lymphadenopathy - Studies Laboratory Data (last 24 hrs) 06/26/22 15:15: PT 12.0, INR 1.09 06/26/22 15:15: WBC 16.50 H, Hgb 14.1, Hct 43.1, Plt Count 321 06/26/22 15:15: Sodium 136, Potassium 3.8, BUN 28 H, Creatinine 1.24, Glucose 129 H, Magnesium 2.3, Total Bilirubin 0.4, AST 27, ALT 66 H, Alkaline Phosphatase 210 H, Lipase 7 L Assessment and Plan - Plan -- Seizures. Patient placed on Keppra IV. Neurology consulted. Seizure precautions. Will await further recommendations from neurologist. --Pneumonia. Likely aspiration. Chest Xray indicates [id number] right base pneumonia. Patient placed on antibiotics, neb treatment with albutero l\Atrovent. Continue O2 therapy as needed. --Sepsis. Likely secondary to pneumonia. Sepsis protocol implemented in the ER. Blood cultures pending. Continue antibiotics. --Cerebral palsy. Continue home medications. -- Lactic acidosis. Lactic acid level-- 6.8. Trending down. Patient given IV bolus hydration in the ER. Continue antibiotics --- Leukocytosis. Likely reactive versus secondary to pneumonia. Blood cultures pending. Continue antibiotics. --Tube feeding. Patient has a PEG tube. Nutrition consulted to initiate tube feeding. -- CKD 2. Stable. We will continue to monitor renal functions. --DVT prophylaxis with Lovenox subQ. Plan to discharge in: Greater than 2 days - Advance Directives Does patient have a Living Will: Yes Does patient have a Durable POA for Healthcare: Yes - Code Status/Comfort Care Code Status Assessed: Yes Physician Review: Patient Assessed, Agree with Above Assessment and Plan Critical Care: No
[2022-06-26 19:30] LABS: Magnesium 2.2; Phosphorus 3.3 mg/dL (2.5-4.9)
[2022-06-26] MEDS: GLYCOPYRROLATE 1 MG FT SCH (23:24)
[2022-06-26] MEDS: CLOBAZAM 10 MG FT SCH (23:25)
[2022-06-26] MEDS: JEVITY 1.2 CAL LIQUID 1,000 ML BOT FT SCH (23:25)
[2022-06-26 23:45] VITALS: BMI 20.4
[2022-06-26] MEDS: LACOSAMIDE 50 MG TABLET FT SCH (23:54)
[2022-06-26] MEDS: VITAMIN D 1000 UNIT TAB FT SCH (23:55)
[2022-06-26] MEDS: ZINC SULFATE 220 MG CAP FT SCH (23:55)
[2022-06-26] MEDS: ENOXAPARIN 40 MG/0.4 ML SQ SCH (23:55)
[2022-06-27] MEDS: PIPER TAZO 3.375 GM in NA CHLORIDE 0.9% 100 ML IV SCH ×3 (00:14→17:20)
[2022-06-27] MEDS: IPRATROPIUM BROM 0.5MG/2.5ML NEB SCH ×4 (01:05→20:00)
[2022-06-27] MEDS: ALBUTEROL 2.5 MG/3 ML NEB SOL NEB SCH ×5 (01:05→20:00)
[2022-06-27] MEDS ORDERED: levETIRAcetam 1,000 MG in NA CHLORIDE 0.9% 100 ML IV SCH (03:30)
[2022-06-27 03:38] LABS: Absolute Lymphocytes (CBC) 1.7 K/uL (0.7-4.9); Lymphocytes % 13.6 % (15.3-44.8); MCV 85.4 fL (80-100); MPV 8.9 fL (7.6-11.3); RBC Red Blood Cell Count 3.98 M/uL (4.33-5.43)
[2022-06-27 03:50] LABS: Potassium 3.4 mEq/L (3.5-5.1)
[2022-06-27] MEDS ORDERED: POTASSIUM 25 MEQ EFFERV TAB PO ONE ×2 (06:00→13:27)
[2022-06-27] MEDS ORDERED: INFLUENZA VACCINE (for 6+ mo) 0.5 ML DOSE IMVAC ONE (08:00)
[2022-06-27] MEDS: GLYCOPYRROLATE 1 MG FT SCH ×2 (09:00→21:20)
[2022-06-27] MEDS: LACOSAMIDE 50 MG TABLET FT SCH ×2 (09:00→21:18)
[2022-06-27] MEDS: ZINC SULFATE 220 MG CAP FT SCH ×2 (09:07→21:19)
[2022-06-27] MEDS: levETIRAcetam 500 MG TAB FT SCH ×2 (09:07→21:18)
[2022-06-27] MEDS: CETIRIZINE HCL 5 MG TABLET FT SCH (09:07)
[2022-06-27] MEDS: ASCORBIC ACID 500 MG TABLET FT SCH (09:07)
[2022-06-27] MEDS: JEVITY 1.2 CAL LIQUID 1,000 ML BOT FT SCH ×4 (09:08→21:19)
[2022-06-27] MEDS: ENOXAPARIN 40 MG/0.4 ML SQ SCH (09:08)
--- NOTE | 2022-06-27 17:22 | EKG ---
Test Date: 2022-06-26 Test Time: 18:22:09 Dry Cleaner Apprentice: PH MEASUREMENT RESULTS: Intervals: Rate: 107 IL: 158 QRSD: 120 QT: 340 QTc: 453 Alex: P: 48 IL: 158 QRS: 104 T: 17 INTERPRETIVE STATEMENTS: Sinus tachycardia Rightward axis Nonspecific intraventricular conduction delay T wave abnormality, consider inferior ischemia Abnormal ECG No previous ECG available for comparison Electronically Signed On 06-27-22 17:20:38 CDT by Rogelio Pearce
[2022-06-27] MEDS: VITAMIN D 1000 UNIT TAB FT SCH (21:18)
[2022-06-27] MEDS: CLOBAZAM 10 MG FT SCH (21:20)
--- NOTE | 2022-06-27 22:37 | CON ---
Reason For Consultation: Consultation called because of dnct-ry-adea seizures. History Of Present Illness: Mr. Lea is a 36-year-old patient with history of cerebral p alsy, advanced mental retardation, and requires total care who also has seizures. He is nonverbal an d just grunts and requires total care for transfers, mobilization, and doing all of his activities of daily living. Family at bedside reported that he had some dental work last week and took tramadol a bout 2 days following that and he began having generalized kyhe-ni-fvix seizures. He had about 4 sei zures and at times blood pressure was low. The patient's family said he was compliant with his 2 ant iepileptic medications, Vimpat and Keppra. During the seizures, for actually perhaps a second, he as pirated and likely developed [id number] right base aspiration pneumonia that was seen on chest x-ray. He was treated with intravenous antibiotics, levetiracetam 1000 mg every 12 hours. He receiv ed IV fluids and was restarted on Keppra 2000 mg twice daily and Vimpat 300 mg twice daily. In addit ion to the levetiracetam, he received piperacillin tazobactam 3.375 mg every 8 hours IV. He continue d vitamin D, vitamin C, and Lovenox for DVT risk reduction. Blood work initially on the was whi te blood cell count 16.5 with neutrophils 89.6. Today white blood cell count had decreased to 12.8 w ith neutrophils 78.9. Since hospitalization, no additional seizures noted. Note when he came to [facility], his lactic acid was elevated at 6.8, consistent with the patient having multiple se izures. On the later on in the day, actually in the evening, it normalized to 2.0 after hydrati on was done. Calcium was normal. Sodium and potassium were initially unremarkable. Liver function studies show elevated alkaline phosphate of 201 and ALT 66. COVID testing negative. Influenza A and B negative. Past Medical History: As noted. Family History: Noncontributory. Past Surgical History: None. Social History: The patient is total care because of his advanced mental retardation and cerebral pa lsy. Family notes he may be able to push a ball around, but he has to be transferred, taken to a [facility], and rolled around. Physical Examination: Vital Signs: Blood pressure 108/71, pulse of 79, respiratory rate 16, temperature 97.4, and oxygen s aturation 96% on room air. Weight 146.4 ounces. He is 5 feet 11 inches. General: Mr. Lea is lying in bed. He makes grunting noises. He does not verbalize with words. He has mild grimace on face. Otherwise, he does not have obvious cranial nerve deficits. His arms a re flexed towards his face and legs are extended out. Lungs: He does have decreased right-sided air movement in the chest otherwise. Abdomen: Soft. Neurologic: The patient has no obvious cranial nerve deficits. He has increased tone in all extremi ties with hyperreflexia. Unable to fully assess strength, sensation, and coordination. He is nonamb ulatory. Assessment: Mr. Lea is a 36-year-old patient with [id number] seizures. He has cerebral palsy a nd mental retardation and long history of seizures. He is on 2 antiepileptic medications. He had [employer] work and received tramadol, which likely lowered his seizure threshold increasing his seizures. Plan: 1.Continue Keppra and Vimpat as directed. 2.The patient should not have tramadol, perhaps use Tylenol instead for pain management. He may be discharged and follow up with his neurologist and primary care physician as scheduled. No need to ch subhash his antiepileptic medication regimen. EARNEST/MARIMAR Voice ID: [id number] Report ID: [id number]
[2022-06-28] MEDS: PIPER TAZO 3.375 GM in NA CHLORIDE 0.9% 100 ML IV SCH ×3 (00:48→16:29)
[2022-06-28] MEDS: IPRATROPIUM BROM 0.5MG/2.5ML NEB SCH ×4 (01:15→19:55)
[2022-06-28] MEDS: ALBUTEROL 2.5 MG/3 ML NEB SOL NEB SCH ×4 (01:15→19:55)
--- NOTE | 2022-06-28 02:41 | P.PN ---
Subjective Date of Service: 06/27/22 patient is clinically doing better. Symptoms are improving. Chest x-ray in the morning. Procalcitonin level morning. These test results are stable possible discharge. Physical Examination - Vital Signs Temperature: 97.4 F Blood Pressure: 108/71 Pulse: 99 Respirations: 18 Pulse Ox (%): 96 Assessment & Plan - Advance Directives Does patient have a Living Will: No Does patient have a Durable POA for Healthcare: Yes Physician Review: Patient Assessed, Agree with Above Assessment and Plan
[2022-06-28 07:21] LABS: Absolute Lymphocytes (CBC) 1.6 K/uL (0.7-4.9); Hematocrit 33.7 % (39.6-49.0); Lymphocytes % 16.2 % (15.3-44.8); MCV 85.5 fL (80-100); MPV 8.3 fL (7.6-11.3); RBC Red Blood Cell Count 3.94 M/uL (4.33-5.43)
[2022-06-28 07:38] LABS: Albumin 2.5 g/dL (3.4-5.0); Bilirubin Total 0.3 mg/dL (0.2-1.0); Potassium 3.6 mEq/L (3.5-5.1); Protein, Total 6.8 g/dL (6.4-8.2)
--- NOTE | 2022-06-28 08:33 | RAD REPORT ---
[facility] CLINICAL HISTORY: pneumonia COMPARISON: Chest Single View dated 06/26/2022; Chest Single View dated 04/24/2022 TECHNIQUE: Portable AP view of the chest. FINDINGS: Patchy perihilar airspace opacities with interstitial prominence, more pronounced on the r ight, stable. Trace right effusion. No pneumothorax or left-sided effusion. The cardiomediastinal con tours are unremarkable. IMPRESSION: Stable patchy central predominant airspace opacities as above suggestive of pneumonia an d/or moderate pulmonary edema.
[2022-06-28] MEDS: ENOXAPARIN 40 MG/0.4 ML SQ SCH (08:59)
[2022-06-28] MEDS: ASCORBIC ACID 500 MG TABLET FT SCH (09:00)
[2022-06-28] MEDS: GLYCOPYRROLATE 1 MG FT SCH ×2 (09:00→20:52)
[2022-06-28] MEDS: levETIRAcetam 500 MG TAB FT SCH ×2 (09:00→20:53)
[2022-06-28] MEDS: CETIRIZINE HCL 5 MG TABLET FT SCH (09:00)
[2022-06-28] MEDS ORDERED: KCL 20 MEQ/100 mL IVPB 20 MEQ/100 ML BAG IV SCH (09:00)
[2022-06-28] MEDS: ZINC SULFATE 220 MG CAP FT SCH ×2 (09:00→20:53)
[2022-06-28] MEDS: LACOSAMIDE 50 MG TABLET FT SCH ×2 (09:00→20:53)
[2022-06-28] MEDS: JEVITY 1.2 CAL LIQUID 1,000 ML BOT FT SCH ×4 (09:01→20:54)
[2022-06-28] MEDS: CLOBAZAM 10 MG FT SCH (20:52)
[2022-06-28] MEDS: VITAMIN D 1000 UNIT TAB FT SCH (20:53)
[2022-06-29] MEDS: PIPER TAZO 3.375 GM in NA CHLORIDE 0.9% 100 ML IV SCH ×2 (00:27→09:45)
[2022-06-29] MEDS: ALBUTEROL 2.5 MG/3 ML NEB SOL NEB SCH ×2 (02:05→08:30)
[2022-06-29] MEDS: IPRATROPIUM BROM 0.5MG/2.5ML NEB SCH ×2 (02:05→08:30)
[2022-06-29 04:09] LABS: Potassium 3.9 mEq/L (3.5-5.1)
[2022-06-29] MEDS: JEVITY 1.2 CAL LIQUID 1,000 ML BOT FT SCH (09:00)
[2022-06-29] MEDS: CETIRIZINE HCL 5 MG TABLET FT SCH (09:44)
[2022-06-29] MEDS: GLYCOPYRROLATE 1 MG FT SCH (09:45)
[2022-06-29] MEDS: ENOXAPARIN 40 MG/0.4 ML SQ SCH (09:45)
[2022-06-29] MEDS: ZINC SULFATE 220 MG CAP FT SCH (09:46)
[2022-06-29] MEDS: ASCORBIC ACID 500 MG TABLET FT SCH (09:46)
[2022-06-29] MEDS: LACOSAMIDE 50 MG TABLET FT SCH (09:52)
[2022-06-29] MEDS: levETIRAcetam 500 MG TAB FT SCH (09:52)
--- NOTE | 2022-06-29 11:36 | RAD REPORT ---
EXAM DESCRIPTION: RAD - Chest Single View - 06/29/2022 10:11 am CLINICAL HISTORY: pneumonia Chest pain. COMPARISON: Chest Single View dated 06/28/2022; Chest Single View dated 06/26/2022; Chest Single View dated 04/24/2022 FINDINGS: Portable technique limits examination quality. Since yesterday's examination, there continues to be a significant opacification of the right lung ba se medially. Left lung aeration appears fractionally improved since prior study. The heart is normal in size. No displaced fractures. IMPRESSION: No real change is seen in the right lung base infiltrate/ airspace opacity likely repres enting pneumonia.
[2022-06-29 11:56] VITALS: BP 125/83; TEMP 97
[2022-06-29 12:22] VITALS: O2SAT 95
== END 2022-06-29 12:50 | disposition home health service (06) | DRG 871 ==
LOC: ER 13:51 → ERHOLD 18:26 → 2ND 21:13
PROVIDERS: ADMIT Hospitalist; ATTEND Hospitalist
DX: A41.9 Sepsis, unspecified organism (principal); J69.0 Pneumonitis due to inhalation of food and vomit; E87.20 Acidosis, unspecified; G80.9 Cerebral palsy, unspecified; N18.2 Chronic kidney disease, stage 2 (mild); F79 Unspecified intellectual disabilities; G40.909 Epilepsy, unspecified, not intractable, without status epilepticus; Z23 Encounter for immunization; Z28.310 Unvaccinated for COVID-19; Z20.822 Contact with and (suspected) exposure to COVID-19
CPT/HCPCS: 0240U; 36415; 71045; 80048; 80053; 80076; 83605; 83690; 83735; 83880; 84100; 84132; 84145; 84484; 85025; 85610; 87040; 90471; 93005; 94640; 96365; 96366; 96367; 96375; 99285; J1650; J1953; J2543; J3480; J7030; J7050; J7613; J7644; Q2035

== ENCOUNTER 2022-08-28 16:09 | Inpatient (IN) | payer OTHER ==
--- OUTSIDE RECORDS SUMMARY | 2022-08-28 16:32 | XMS REPORT | Continuity of Care Document ---
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 2021-0 Yes 200mg Take 200 Un [place]nn 200 mg 5-11 mg by ity of tablet 16:04: mouth [address] [place] [address] 25 (two) Medical times Branch daily. Lacosamide 2021-0 Yes 200mg Take 200 Un flynn 200 mg 5-11 mg by ity of tablet 16:04: mouth [address] [place] [address] 25 (two) Medical times Branch daily. Lacosamide 2021-0 Yes 200mg Take 200 Un flynn 200 mg 5-11 mg by ity of tablet 16:04: mouth [address] [place] [address] 25 (two) Medical times Branch daily. Lacosamide 2021-0 Yes 200mg Take 200 Un flynn 200 mg 5-11 mg by ity of tablet 16:04: mouth [address] [place] [address] 25 (two) Medical times Branch daily. Lacosamide 2021-0 Yes 200mg Take 200 Un flynn 200 mg 5-11 mg by ity of tablet 16:04: mouth [address] [place] [address] 25 (two) Medical times Branch daily. Lacosamide 2021-0 Yes 200mg Take 200 Un flynn 200 mg 5-11 mg by ity of tablet 16:04: mouth [address] [place] [address] 25 (two) Medical times Branch daily. Lacosamide 2021-0 Yes 200mg Take 200 Un flynn 200 mg 5-11 mg by ity of tablet 16:04: mouth [address] [place] [address] 25 (two) Medical times Branch daily. levetiracet 2021-0 Yes 1500mg Take 1,500 Univers am (KEPPRA 5-11 mg by ity of ORAL) 16:00: mouth [address] [place] [address] 40 (two) Medical times Branch daily. phenytoin 2021-0 Yes Take by Unive rs 100 mg/4 mL 5-11 mouth 3 ity o f suspension 16:00: (three[place] Medical daily. Branch levetiracet 1-0 Yes 1500mg Take 1,500 Univers am (KEPPRA 5-11 mg by ity of ORAL) 16:00: mouth 2 [place] 40 (two) Medical times Branch daily. phenytoin 1-0 Yes Take by Unive rs 100 mg/4 mL 5-11 mouth 3 ity o f suspension 16:00: (three) [place] times Medical daily. Branch levetiracet 1-0 Yes 1500mg Take 1,500 [facility] am (KEPPRA 5-11 mg by ity of ORAL) 16:00: mouth 2 [place] 40 (two) Medical times Branch daily. phenytoin 1-0 Yes Take by Unive rs 100 mg/4 mL 5-11 mouth 3 ity o f suspension 16:00: (three) [place] times Medical daily. Branch levetiracet 1-0 Yes 1500mg Take 1,500 [facility] am (KEPPRA 5-11 mg by ity of ORAL) 16:00: mouth [address] [place] [address] 40 (two) Medical times Branch daily. phenytoin 1-0 Yes Take by Unive rs 100 mg/4 mL 5-11 mouth 3 ity o f suspension 16:00: (three) [place] times Medical daily. Branch levetiracet 1-0 Yes 1500mg Take 1,500 [facility] am (KEPPRA 5-11 mg by ity of ORAL) 16:00: [address] 40 (two) Medical times Branch daily. phenytoin 1-0 Yes Take by Unive rs 100 mg/4 mL 5-11 mouth 3 ity o f suspension 16:00: (three) [place] times Medical daily. Branch levetiracet 1-0 Yes 1500mg Take 1,500 [facility] am (KEPPRA 5-11 mg by ity of ORAL) 16:00: mouth [address] [place] [address] 40 (two) Medical times Branch daily. phenytoin 2021-0 Yes Take by [facility]ive rs 100 mg/4 mL 5-11 mouth 3 ity o f suspension 16:00: (three) [place] times Medical daily. Branch levetiracet 2021-0 Yes 1500mg Take 1,500 Univers am (KEPPRA 5-11 mg by ity of ORAL) 16:00: mouth 2 [place] 40 (two) Medical times Branch daily. phenytoin 2020-0 Yes Take by Unive rs 100 mg/4 mL 5-11 mouth 3 ity o f suspension 16:00: (three) [place] times Medical daily. Branch levetiracet 2020-0 Yes 1500mg Take 1,500 Univers am (KEPPRA 5-11 mg by ity of ORAL) 16:00: mouth 2 [place] 40 (two) Medical times Branch daily. phenytoin 2020-0 Yes Take by Unive rs 100 mg/4 mL 5-11 mouth 3 ity o f suspension 16:00: (three) [place] times Medical daily. Branch levetiracet 2020-0 Yes 1500mg Take 1,500 [facility] am (KEPPRA 5-11 mg by ity of ORAL) 16:00: mouth 2 [place] 40 (two) Medical times Branch daily. phenytoin 2020-0 Yes Take by Unive rs 100 mg/4 mL 5-11 mouth 3 ity o f suspension 16:00: (three) [place] times Medical daily. Branch predniSONE 2020-0 Yes 20mg Take 20 mg U nivers 20 mg 3-14 by mouth ity of tablet 06:03: every 48 [place] 23 ([facility]) hours. Branch nut.tx.impa 2020-0 Yes Take by Uni vers ired 3-14 mouth as ity of digest/fibe 06:03: needed. Marc as r (VITAL AF 23 Medical 1.2 MICHELE Branch ORAL) ZINC 2020-0 Yes 50mg Take 50 mg Univers PICOLINATE 3-14 by mouth 2 ity of ORAL 06:03: (two) [place] 23 times Medical daily. Branch predniSONE 2020-0 Yes 20mg Take 20 mg U nivers 20 mg 3-14 by mouth ity of tablet 06:03: every 48 [place] 23 ([facility]) hours. Branch nut.tx.impa 2020-0 Yes Take by Uni vers ired 3-14 mouth as ity of digest/fibe 06:03: needed. [place] r (VITAL AF 23 Medical 1.2 MICHELE Branch ORAL) ZINC 1-0 Yes 50mg Take 50 mg Univers PICOLINATE 3-14 by mouth 2 ity of ORAL 06:03: (two) [place] 23 times Medical daily. Branch predniSONE 2021-0 Yes 20mg Take 20 mg U nivers 20 mg 3-14 by mouth ity of tablet 06:03: every 48 [place] 23 ([facility] ) hours. [place] nut.tx.impa 0 Yes [...] mouth ity of tablet 06:03: every 48 [place] 23 ([facility] ) hours. [place] goncalves.tx.impa 0 Yes Take by Uni vers ired [...] mouth ity of tablet 06:03: every 48 [place] 23 ([facility] ) hours. [place] nut.tx.impa 0 Yes [...] mouth ity of tablet 06:03: every 48 [place] 23 ([facility] ) hours. [place] nut.tx.impa 0 Yes Take by Uni vers ired 3-14 mouth as ity of digest/fibe 06:03: needed. [place] r (VITAL AF 23 Medical 1.2 MICHELE Branch ORAL) ZINC 2020-0 Yes 50mg Take 50 mg Univers PICOLINATE 3-14 by mouth 2 ity of ORAL 06:03: (two) [place] 23 times Medical daily. Branch ASCORBIC 0 Yes 1000mg Take 1,000 U nivers ACID ORAL 3-14 mg by ity of 06:03: mouth 2 [place] [address] (two) Medical times Branch daily. atorvastati Yes 10mg Take 10 mg Univers n (LIPITOR) 3-14 by mouth ity of 10 mg 06:03: daily. [place] tablet Medical Branch cholecalcif Yes 1000U Take 1,000 Univers leeroy, 3-14 Units by ity of vitamin D3, 06:03: mouth [place] 25 mcg 22 daily. Medical (1,000 Branch unit) tablet famotidine Yes 40mg 40 mg Univer s 40 mg 3-14 daily. ity of tablet 06:03: [address] Branch Lacosamide Yes 200mg Take 200 Un flynn 200 mg 3-14 mg by ity of tablet 06:03: mouth 2 [place] [address] (two) Medical times [place] daily. levalbutero Yes .63mg Inhale Uni vers l 0.63 mg/3 3-14 0.63 mg ity o f mL 06:03: every 6 [place] nebulizer (six) Medical solution hours. Branch levetiracet Yes 1500mg Take 1,500 Univers am (KEPPRA 3-14 mg by ity of ORAL) 06:03: mouth 2 [place] [address] (two) Medical times [place] daily. MELATONIN Yes 6mg Take 6 mg Uni vers ORAL 3-14 by mouth. ity of 06:03: [address] Branch metoprolol Yes 50mg Take 50 mg U nivers tartrate 50 3-14 by mouth 3 it y of mg tablet 06:03: (three) [place] 22 times Medical daily. Branch phenytoin 0 Yes Take by Unive rs 100 mg/4 mL 3-14 mouth 3 ity o f suspension 06:03: (three) [place] times Medical daily. Branch POTASSIUM Yes Take by Unive rs CHLORIDE 3-14 mouth. ity of ORAL 06:03: [address] Branch ASCORBIC 0 Yes 1000mg Take 1,000 U nivers ACID ORAL 3-14 mg by ity of 06:03: mouth 2 [place] [address] (two) Medical times Branch daily. atorvastati 0 Yes 10mg Take 10 mg Univers n (LIPITOR) 3-14 by mouth ity of 10 mg 06:03: daily. [place] [address] Medical Branch cholecalcif 0 Yes 1000U Take 1,000 Univers leeroy, 3-14 Units by ity of vitamin D3, 06:03: mouth [place] 25 mcg 22 daily. Medical (1,000 Branch unit) tablet famotidine 0 Yes 40mg 40 mg Univer s 40 mg 3-14 daily. ity of tablet 06:03: [address] Branch levalbutero Yes .63mg Inhale Uni vers l 0.63 mg/3 3-14 0.63 mg ity o f mL 06:03: every 6 [place] nebulizer (six) Medical solution hours. Branch MELATONIN Yes 6mg Take 6 mg Uni vers ORAL 3-14 by mouth. ity of 06:03: [address] metoprolol Yes 50mg Take 50 mg U nivers tartrate 50 3-14 by mouth 3 it y of mg tablet 06:03: (three) [place] [address] times [facility] daily. Branch POTASSIUM Yes Take by Unive rs CHLORIDE 3-14 mouth. ity of ORAL 06:03: [address] ASCORBIC 0 Yes 1000mg Take 1,000 U nivers ACID ORAL 3-14 mg by ity of 06:03: mouth 2 [place] [address] (two) Medical times [place] daily. atorvastati Yes 10mg Take 10 mg Univers n (LIPITOR) 3-14 by mouth ity of 10 mg 06:03: daily. [address] Branch cholecalcif Yes 1000U Take 1,000 Univers leeroy, 3-14 Units by ity of vitamin D3, 06:03: mouth [place] 25 mcg 22 daily. Medical (1,000 Branch unit) tablet famotidine 0 Yes 40mg 40 mg Univer s 40 mg 3-14 daily. ity of tablet 06:03: [address] levalbutero 0 Yes .63mg Inhale Uni vers l 0.63 mg/3 3-14 0.63 mg ity o f mL 06:03: every 6 [place] nebulizer 22 (six) Medical solution hours. Branch MELATONIN Yes 6mg Take 6 mg Uni vers ORAL 3-14 by mouth. ity of 06:03: [place] [address] Medical Branch metoprolol Yes 50mg Take 50 mg U nivers tartrate 50 3-14 by mouth 3 it y of mg tablet 06:03: (three) [place] 22 times Medical daily. Branch POTASSIUM 0 Yes Take by Unive rs CHLORIDE 3-14 mouth. ity of ORAL 06:03: [place] [address] Medical Branch ASCORBIC Yes 1000mg Take 1,000 U nivers ACID ORAL 3-14 mg by ity of 06:03: mouth 2 [place] [address] (two) Medical [facility] daily. atorvastati Yes 10mg Take 10 mg Univers n (LIPITOR) 3-14 by mouth ity of 10 mg 06:03: daily. [address] Branch cholecalcif Yes 1000U Take 1,000 Univers leeroy, 3-14 Units by ity of vitamin D3, 06:03: mouth [place] 25 mcg 22 daily. Medical (1,000 Branch unit) tablet famotidine Yes 40mg 40 mg Univer s 40 mg 3-14 daily. ity of tablet 06:03: [address] Branch levalbutero Yes .63mg Inhale Uni vers l 0.63 mg/3 3-14 0.63 mg ity o f mL 06:03: every 6 [place] nebulizer 22 (six) Medical solution hours. Branch MELATONIN Yes 6mg Take 6 mg Uni vers ORAL 3-14 by mouth. ity of 06:03: [address] metoprolol Yes 50mg Take 50 mg U nivers tartrate 50 3-14 by mouth 3 it y of mg tablet 06:03: (three) [place] [address] times Medical daily. Branch POTASSIUM 0 Yes Take by Unive rs CHLORIDE 3-14 mouth. ity of ORAL 06:03: [address] Branch ASCORBIC 2020-0 Yes 1000mg Take 1,000 U nivers ACID ORAL 3-14 mg by ity of 06:03: mouth 2 [place] [address] (two) Medical times [place] daily. atorvastati 2020-0 Yes 10mg Take 10 mg Univers n (LIPITOR) 3-14 by mouth ity of 10 mg 06:03: daily. [place] tablet Medical Branch cholecalcif 2020-0 Yes 1000U Take 1,000 Univers leeroy, 3-14 Units by ity of vitamin D3, 06:03: mouth [place] 25 mcg 22 daily. Medical (1,000 Branch unit) tablet famotidine 0 Yes 40mg 40 mg Univer s 40 mg 3-14 daily. ity of tablet 06:03: [address] Branch levalbutero 0 Yes .63mg Inhale Uni vers l 0.63 mg/3 3-14 0.63 mg ity o f mL 06:03: every 6 [place] nebulizer 22 (six) Medical solution hours. Branch MELATONIN 0 Yes 6mg Take 6 mg Uni vers ORAL 3-14 by mouth. ity of 06:03: [address] Branch metoprolol Yes 50mg Take 50 mg U nivers tartrate 50 3-14 by mouth 3 it y of mg tablet 06:03: (three) [place] [address] times Medical daily. Branch POTASSIUM Yes Take by Unive rs CHLORIDE 3-14 mouth. ity of ORAL 06:03: [address] Branch ASCORBIC 0 Yes 1000mg Take 1,000 U nivers ACID ORAL 3-14 mg by ity of 06:03: mouth 2 [place] [address] (two) Medical times Branch daily. atorvastati Yes 10mg Take 10 mg Univers n (LIPITOR) 3-14 by mouth ity of 10 mg 06:03: daily. [place] [address] Medical Branch cholecalcif 0 Yes 1000U Take 1,000 Univers leeroy, 3-14 Units by ity of vitamin D3, 06:03: mouth [place] 25 mcg 22 daily. Medical (1,000 Branch unit) tablet famotidine 2020-0 Yes 40mg 40 mg Univer s 40 mg 3-14 daily. ity of tablet 06:03: [address] Branch levalbutero 0 Yes .63mg Inhale Uni vers l 0.63 mg/3 3-14 0.63 mg ity o f mL 06:03: every 6 [place] nebulizer 22 (six) Medical solution hours. Branch MELATONIN 2020-0 Yes 6mg Take 6 mg Uni vers ORAL 3-14 by mouth. ity of 06:03: [place] [address] Medical Branch metoprolol Yes 50mg Take 50 mg U nivers tartrate 50 3-14 by mouth 3 it y of mg tablet 06:03: (three) [place] 22 times Medical daily. Branch POTASSIUM Yes Take by [place] [facility] rs CHLORIDE 3-14 mouth. ity of ORAL 06:03: [address] NaCl 0.9% 2020- No 500mL at 999 Univ ers (NS) bolus 3-14 03-14 mL/hr, 500 it y of infusion 03:45: 03:45 mL, IV [place] 500 mL 00 :00 Infusion, Medical ONCE, 1 Branch dose, 06/18/20 at 2145, STAT predniSONE Yes 20mg Take 20 mg U nivers 20 mg 3-14 by mouth ity of tablet 00:03: every 48 [place] 23 ([facility] ) hours. Branch nut.tx.impa Yes Take by Uni vers ired 3-14 mouth as ity of digest/fibe 00:03: needed. Marc as r (VITAL AF 23 Medical 1.2 MICHELE Branch ORAL) ZINC Yes 50mg Take 50 mg Univers PICOLINATE 3-14 by mouth 2 ity of ORAL 00:03: (two) [place] 23 times Medical daily. Branch predniSONE Yes 20mg Take 20 mg U nivers 20 mg 3-14 by mouth ity of tablet 00:03: every 48 [place] 23 ([facility] ) hours. Branch nut.tx.impa Yes Take by Uni vers ired 3-14 mouth as ity of digest/fibe 00:03: needed. Marc as r (VITAL AF 23 Medical 1.2 MICHELE [place] ORAL) ZINC 0 Yes 50mg Take 50 mg Univers PICOLINATE 3-14 by mouth 2 ity of ORAL 00:03: (two) [place] 23 times Medical daily. Branch predniSONE 0 Yes 20mg Take 20 mg U nivers 20 mg 3-14 by mouth ity of tablet 00:03: every 48 [place] 23 ([facility] ) hours. Branch nut.tx.impa Yes Take by Uni vers ired 3-14 mouth as ity of digest/fibe 00:03: needed. [place] as r (VITAL AF 23 Medical 1.2 MICHELE Branch ORAL) ZINC 2020-0 Yes 50mg Take 50 mg Univers PICOLINATE 3-14 by mouth 2 ity of ORAL 00:03: (two) [place] 23 times Medical daily. Branch predniSONE 2020-0 Yes 20mg Take 20 mg U nivers 20 mg 3-14 by mouth ity of tablet 00:03: every 48 [place] [address] ([facility]) hours. Branch nut.tx.impa 2020-0 Yes Take by Uni vers ired 3-14 mouth as ity of digest/fibe 00:03: needed. Marc as r (VITAL AF 23 Medical 1.2 MICHELE Branch ORAL) ZINC 2020-0 Yes 50mg Take 50 mg Univers PICOLINATE 3-14 by mouth 2 ity of ORAL 00:03: (two) [place] 23 times Medical daily. Branch predniSONE 2020-0 Yes 20mg Take 20 mg U nivers 20 mg 3-14 by mouth ity of tablet 00:03: every 48 [place] [address] ([facility]) hours. Branch nut.tx.impa 2020-0 Yes Take by Uni vers ired 3-14 mouth as ity of digest/fibe 00:03: needed. [place] as r (VITAL AF 23 Medical 1.2 MICHELE Branch ORAL) ZINC 2020-0 Yes 50mg Take 50 mg Univers PICOLINATE 3-14 by mouth 2 ity of ORAL 00:03: (two) [place] 23 times Medical daily. Branch predniSONE 2020-0 Yes 20mg Take 20 mg U nivers 20 mg 3-14 by mouth ity of tablet 00:03: every 48 [place] [address] ([facility]) hours. Branch nut.tx.impa 2020-0 Yes Take by Uni vers ired 3-14 mouth as ity of digest/fibe 00:03: needed. [place] as r (VITAL AF 23 Medical 1.2 MICHELE Branch ORAL) ZINC 2020-0 Yes 50mg Take 50 mg Univers PICOLINATE 3-14 by mouth 2 ity of ORAL 00:03: (two) [place] 23 times Medical daily. Branch predniSONE 2020-0 Yes 20mg Take 20 mg U nivers 20 mg 3-14 by mouth ity of tablet 00:03: every 48 [place] [address] ([facility] ) hours. Branch nut.tx.impa 0 Yes Take by Uni vers ired 3-14 mouth as ity of digest/fibe 00:03: needed. [place] as r (VITAL AF 23 Medical 1.2 MICHELE Branch ORAL) ZINC 0 Yes 50mg Take 50 mg Univers PICOLINATE 3-14 by mouth 2 ity of ORAL 00:03: (two) [place] 23 times Medical daily. Branch predniSONE 0 Yes 20mg Take 20 mg U nivers 20 mg 3-14 by mouth ity of tablet 00:03: every 48 [place] 23 ([facility] Medical ) hours. Branch nut.tx.impa Yes Take by Uni vers ired 3-14 mouth as ity of digest/fibe 00:03: needed. [place] as r (VITAL AF 23 Medical 1.2 MICHELE Branch ORAL) ZINC 0 Yes 50mg Take 50 mg Univers PICOLINATE 3-14 by mouth 2 ity of ORAL 00:03: (two) [place] 23 times Medical daily. Branch predniSONE 0 Yes 20mg Take 20 mg U nivers 20 mg 3-14 by mouth ity of tablet 00:03: every 48 [place] 23 ([facility]) hours. Branch nut.tx.impa 0 Yes Take by Uni vers ired 3-14 mouth as ity of digest/fibe 00:03: needed. [place] as r (VITAL AF 23 Medical 1.2 MICHELE Branch ORAL) ZINC 0 Yes 50mg Take 50 mg Univers PICOLINATE 3-14 by mouth 2 ity of ORAL 00:03: (two) [place] 23 times Medical daily. Branch ASCORBIC 2020-0 Yes 1000mg Take 1,000 U nivers ACID ORAL 3-14 mg by ity of 00:03: mouth 2 [place] 22 (two) Medical times Branch daily. atorvastati 0 Yes 10mg Take 10 mg Univers n (LIPITOR) 3-14 by mouth ity of 10 mg 00:03: daily. [place] tablet 22 Medical Branch cholecalcif 0 Yes 1000U Take 1,000 Univers leeroy, 3-14 Units by ity of vitamin D3, 00:03: mouth [place] 25 mcg 22 daily. Medical (1,000 Branch unit) tablet famotidine 2021-0 Yes 40mg 40 mg Univer s 40 mg 3-14 daily. ity of tablet 00:03: [place] [address] Medical Branch levalbutero Yes .63mg Inhale Uni vers l 0.63 mg/3 3-14 0.63 mg ity o f mL 00:03: every 6 [place] nebulizer 22 (six) Medical solution hours. Branch MELATONIN 0 Yes 6mg Take 6 mg Uni vers ORAL 3-14 by mouth. ity of 00:03: [place] [address] Medical Branch metoprolol 0 Yes 50mg Take 50 mg U nivers tartrate 50 3-14 by mouth 3 it y of mg tablet 00:03: (three) [place] [address] times Medical daily. Branch POTASSIUM 0 Yes Take by Unive rs CHLORIDE 3-14 mouth. ity of ORAL 00:03: [place] [address] Medical Branch ASCORBIC 0 Yes 1000mg Take 1,000 U nivers ACID ORAL 3-14 mg by ity of 00:03: mouth 2 [place] [address] (two) Medical times Branch daily. atorvastati Yes 10mg Take 10 mg Univers n (LIPITOR) 3-14 by mouth ity of 10 mg 00:03: daily. [address] Branch cholecalcif Yes 1000U Take 1,000 Univers leeroy, 3-14 Units by ity of vitamin D3, 00:03: mouth [place] 25 mcg 22 daily. Medical (1,000 Branch unit) tablet famotidine Yes 40mg 40 mg Univer s 40 mg 3-14 daily. ity of tablet 00:03: [place] [address] Medical Branch levalbutero Yes .63mg Inhale Uni vers l 0.63 mg/3 3-14 0.63 mg ity o f mL 00:03: every 6 [place] nebulizer 22 (six) Medical solution hours. Branch MELATONIN 0 Yes 6mg Take 6 mg Uni vers ORAL 3-14 by mouth. ity of 00:03: [place] [address] Medical Branch metoprolol 0 Yes 50mg Take 50 mg U nivers tartrate 50 3-14 by mouth 3 it y of mg tablet 00:03: (three) [place] [address] times Medical daily. Branch POTASSIUM 2020-0 Yes Take by Unive rs CHLORIDE 3-14 mouth. ity of ORAL 00:03: [address] ASCORBIC 2020-0 Yes 1000mg Take 1,000 U nivers ACID ORAL 3-14 mg by ity of 00:03: mouth 2 [place] [address] (two) Medical times [place] daily. atorvastati 2020-0 Yes 10mg Take 10 mg Univers n (LIPITOR) 3-14 by mouth ity of 10 mg 00:03: daily. [place] tablet Medical Branch cholecalcif 2020-0 Yes 1000U Take 1,000 Univers leeroy, 3-14 Units by ity of vitamin D3, 00:03: mouth [place] 25 mcg 22 daily. Medical (1,000 Branch unit) tablet famotidine 0 Yes 40mg 40 mg Univer s 40 mg 3-14 daily. ity of tablet 00:03: [address] levalbutero 0 Yes .63mg Inhale Uni vers l 0.63 mg/3 3-14 0.63 mg ity o f mL 00:03: every 6 [place] nebulizer (six) Medical solution hours. Branch MELATONIN 0 Yes 6mg Take 6 mg Uni vers ORAL 3-14 by mouth. ity of 00:03: [address] metoprolol 0 Yes 50mg Take 50 mg U nivers tartrate 50 3-14 by mouth 3 it y of mg tablet 00:03: (three) [address] daily. Branch POTASSIUM 0 Yes Take by Unive rs CHLORIDE 3-14 mouth. ity of ORAL 00:03: [address] ASCORBIC 2020-0 Yes 1000mg Take 1,000 U nivers ACID ORAL 3-14 mg by ity of 00:03: mouth 2 [place] [address] (two) Medical times [place] daily. atorvastati 2020-0 Yes 10mg Take 10 mg Univers n (LIPITOR) 3-14 by mouth ity of 10 mg 00:03: daily. [address] Branch cholecalcif 2020-0 Yes 1000U Take 1,000 Univers leeroy, 3-14 Units by ity of vitamin D3, 00:03: mouth [place] 25 mcg 22 daily. Medical (1,000 Branch unit) tablet famotidine 2020-0 Yes 40mg 40 mg Univer s 40 mg 3-14 daily. ity of tablet 00:03: [address] levalbutero Yes .63mg Inhale Uni vers [...] it y of mg tablet 00:03: (three) [place] 22 times Medical daily. Branch POTASSIUM Yes Take by Unive rs CHLORIDE 3-14 mouth. ity of ORAL 00:03: Medical Branch ASCORBIC 0 Yes 1000mg Take 1,000 U nivers ACID ORAL 3-14 mg by ity of 00:03: mouth 2 [place] [address] (two) Medical times Branch daily. atorvastati Yes 10mg Take 10 mg Univers n (LIPITOR) 3-14 by mouth ity of 10 mg 00:03: daily. [facility] 22 Medical Branch cholecalcif Yes 1000U Take [...] ORAL 3-14 by mouth. ity of 00:03: [place] Medical Branch metoprolol 0 Yes 50mg Take 50 mg U nivers tartrate 50 3-14 by mouth 3 it y of mg tablet 00:03: (three) [place] 22 times Medical daily. Branch POTASSIUM 0 Yes Take by Unive rs CHLORIDE 3-14 mouth. ity of ORAL 00:03: [place] [address] Medical Branch ASCORBIC 2020-0 Yes 1000mg Take 1,000 U nivers ACID ORAL 3-14 mg by ity of 00:03: mouth 2 [place] [address] (two) Medical times Branch daily. atorvastati 2020-0 Yes 10mg Take 10 mg Univers n (LIPITOR) 3-14 by mouth ity of 10 mg 00:03: daily. [place] [address] Medical Branch cholecalcif 2020-0 Yes 1000U Take 1,000 Univers leeroy, 3-14 Units by ity of vitamin D3, 00:03: mouth [place] 25 mcg 22 daily. Medical (1,000 Branch unit) tablet famotidine 2020-0 Yes 40mg 40 mg Univer s 40 mg 3-14 daily. ity of tablet 00:03: [address] Branch levalbutero 0 Yes .63mg Inhale Uni vers l 0.63 mg/3 3-14 0.63 mg ity o f mL 00:03: every 6 [place] nebulizer 22 (six) Medical solution hours. Branch MELATONIN 2020-0 Yes 6mg Take 6 mg Uni vers ORAL 3-14 by mouth. ity of 00:03: [address] metoprolol 0 Yes 50mg Take 50 mg U nivers tartrate 50 3-14 by mouth 3 it y of mg tablet 00:03: (three) [place] [address] times Medical daily. Branch POTASSIUM 0 Yes Take by Unive rs CHLORIDE 3-14 mouth. ity of ORAL 00:03: [address] ASCORBIC 2020-0 Yes 1000mg Take 1,000 U nivers ACID ORAL 3-14 mg by ity of 00:03: mouth 2 [place] [address] (two) Medical times [place] daily. atorvastati 2020-0 Yes 10mg Take 10 mg Univers n (LIPITOR) 3-14 by mouth ity of 10 mg 00:03: daily. [address] Branch cholecalcif 2020-0 Yes 1000U Take 1,000 Univers leeroy, 3-14 Units by ity of vitamin D3, 00:03: mouth [place] 25 mcg 22 daily. Medical (1,000 Branch unit) tablet famotidine 2020-0 Yes 40mg 40 mg Univer s 40 mg 3-14 daily. ity of tablet 00:03: [address] Branch levalbutero 2020-0 Yes .63mg Inhale Uni vers l 0.63 mg/3 3-14 0.63 mg ity o f mL 00:03: every 6 [place] nebulizer 22 (six) Medical solution hours. Branch MELATONIN 0 Yes 6mg Take 6 mg Uni vers ORAL 3-14 by mouth. ity of 00:03: [place] [address] Medical Branch metoprolol 0 Yes 50mg Take 50 mg U nivers tartrate 50 3-14 by mouth 3 it y of mg tablet 00:03: (three) [place] 22 times Medical daily. Branch POTASSIUM 0 Yes Take by Unive rs CHLORIDE 3-14 mouth. ity of ORAL 00:03: [place] [address] Medical Branch ASCORBIC 2020-0 Yes 1000mg Take 1,000 U nivers ACID ORAL 3-14 mg by ity of 00:03: mouth 2 [place] [address] (two) Medical times [place] daily. atorvastati 0 Yes 10mg Take 10 mg Univers n (LIPITOR) 3-14 by mouth ity of 10 mg 00:03: daily. [place] [address] Medical Branch cholecalcif Yes 1000U Take 1,000 Univers leeory, 3-14 Units by ity of vitamin D3, 00:03: mouth [place] 25 mcg 22 daily. Medical (1,000 Branch unit) tablet famotidine Yes 40mg 40 mg Univer s 40 mg 3-14 daily. ity of tablet 00:03: [place] [address] Medical Branch levalbutero Yes .63mg Inhale Uni vers l 0.63 mg/3 3-14 0.63 mg ity o f mL 00:03: every 6 [place] nebulizer 22 (six) Medical solution hours. Branch MELATONIN 0 Yes 6mg Take 6 mg Uni vers ORAL 3-14 by mouth. ity of 00:03: [place] [address] Medical Branch metoprolol 0 Yes 50mg Take 50 mg U nivers tartrate 50 3-14 by mouth 3 it y of mg tablet 00:03: (three) [place] 22 times Medical daily. Branch POTASSIUM 2020-0 Yes Take by Unive rs CHLORIDE 3-14 mouth. ity of ORAL 00:03: [place] [address] Medical Branch ASCORBIC 2020-0 Yes 1000mg Take 1,000 U nivers ACID ORAL 3-14 mg by ity of 00:03: mouth 2 [place] [address] (two) Medical times [place] daily. atorvastati 2020-0 Yes 10mg Take 10 mg Univers n (LIPITOR) 3-14 by mouth ity of 10 mg 00:03: daily. [place] tablet 22 Medical Branch cholecalcif Yes 1000U Take 1,000 Univers leeroy, 3-14 Units by ity of vitamin D3, 00:03: mouth [place] 25 mcg 22 daily. Medical (1,000 Branch unit) tablet famotidine Yes 40mg 40 mg Univer s 40 mg 3-14 daily. ity of tablet 00:03: [address] levalbutero Yes .63mg Inhale Uni vers l 0.63 mg/3 3-14 0.63 mg ity o f mL 00:03: every 6 [place] nebulizer 22 (six) Medical solution hours. Branch MELATONIN Yes 6mg Take 6 mg Uni vers ORAL 3-14 by mouth. ity of 00:03: [address] metoprolol Yes 50mg Take 50 mg U nivers tartrate 50 3-14 by mouth 3 it y of mg tablet 00:03: (three) [place] 22 times Medical daily. Branch POTASSIUM Yes Take by Unive rs CHLORIDE 3-14 mouth. ity of ORAL 00:03: [address] iohexol 2020- No 120mL 120 mL, Unive rs (OMNIPAQUE 3-04 03-04 Intravenou it y of 350 19:15: 19:08 s, ONCE, 1 [place] BULK-150 00 :00 dose, Ann Marie Medica l mL) 06/09/20 at [place] injection 1315, 120 mL Routine Lacosamide Yes 200mg Take 200 [facility] (VIMPAT) 3-01 mg by [place] 200 MG/20ML 00:00: mouth two o f SOLN 00 times Medicin daily. e Aspirin 81 Yes 81mg Take 81 mg B [facility] MG tablet 3-01 by mouth Colleg e 00:00: daily. of 00 Medicin e Lacosamide 0 Yes 200mg Take 200 [facility] (VIMPAT) 3-01 mg by [place] 200 MG/20ML 00:00: mouth two o f SOLN 00 times Medicin daily. e No known No Univers medications ity of [facility] No known No Univers medications ity of [place] [facility] No known No Univers medications it of [facility] Immunizations Ordered Immunization Filled Immunization Date Status Commen ts Source Name Name Influenza Quad-PF 2021-04-10 Completed [facility] 00:00:00 of Medicine Influenza Quad-PF 2021-04-10 Completed [facility] 00:00:00 of Medicine Influenza Quad-PF 2021-04-10 Completed [facility] 00:00:00 of Medicine Influenza Quad-PF 2021-04-10 Completed [facility] 00:00:00 of Medicine Influenza Quad-PF 2021-04-10 Completed [facility] 00:00:00 of Medicine Vital Signs Vital Name Observation Time Observation Value Comments Source Systolic blood 2022-05-28 108 mm[Hg] [facility] pressure 16:44:00 of Medicine Diastolic blood 2022-05-28 74 mm[Hg] [facility] pressure 16:44:00 of Medicine Heart rate 2022-05-28 70 /min [facility] 16:44:00 of Medicine Body temperature 2022-05-28 36.28 Mary [facility] Raudel ege 16:44:00 of Medicine Body height 2022-05-28 180.3 cm [facility] 16:44:00 of Medicine Body weight 2022-05-28 64.864 kg 75.5 lbs (blue [facility] 16:44:00 wc) of Medicine BMI 2022-05-28 19.94 kg/m2 [facility] 16:44:00 of Medicine Oxygen saturation 2022-05-28 95 /min [facility] in Arterial blood 16:44:00 of Medicin e by Pulse oximetry HEIGHT 2022-04-25 180.3 cm 01:00:00 WEIGHT 2022-04-25 65.726 kg 01:00:00 HEIGHT 2022-04-25 180.3 cm 01:00:00 WEIGHT 2022-04-25 65.726 kg 01:00:00 HEIGHT 2022-04-10 180.3 cm 18:22:00 WEIGHT 2022-04-10 67.586 kg 18:22:00 HEIGHT 2022-04-10 180.3 cm 18:22:00 WEIGHT 2022-04-10 67.586 kg 18:22:00 Systolic blood 2022-04-10 138 mm[Hg] [facility] pressure 16:52:00 of Medicine Diastolic blood 2022-04-10 92 mm[Hg] [facility] ge pressure 16:52:00 of Medicine Heart rate 2022-04-10 90 /min [facility] 16:52:00 of Medicine Body temperature 2022-04-10 36.56 Mary [facility] Raudel ege 16:52:00 of Medicine Body height 2022-04-10 180.3 cm [facility] 16:52:00 of Medicine Body weight 2022-04-10 67.586 kg [facility] 16:52:00 of Medicine BMI 2022-04-10 20.78 kg/m2 [facility] 16:52:00 of Medicine Systolic blood 2022-04-10 116 mm[Hg] [facility] pressure 15:37:00 of Medicine Diastolic blood 2022-04-10 80 mm[Hg] [facility] ge pressure 15:37:00 of Medicine Heart rate 2022-04-10 84 /min [facility] 15:37:00 of Medicine Body temperature 2022-04-10 36.5 Mary [facility] 15:37:00 of Medicine Body height 2022-04-10 180.3 cm [facility] 15:37:00 of Medicine Body weight 2022-04-10 67.722 kg 75.5 lbs (blue [facility] 15:37:00 wc) of Medicine BMI 2022-04-10 20.82 kg/m2 [facility] 15:37:00 of Medicine Oxygen saturation 2022-04-10 94 /min [facility] in Arterial blood 15:37:00 [...] cm 09:35:00 Systolic blood 2021-08-01 122 mm[Hg] [facility] pressure 18:43:00 of Medicine Diastolic blood 2021-08-01 90 mm[Hg] [facility] pressure 18:43:00 of Medicine Heart rate 2021-08-01 99 /min [facility] 18:43:00 of Medicine Body height 2021-08-01 180.3 cm [facility] 18:43:00 of Medicine Body weight 2021-08-01 66.679 kg [facility] 18:43:00 of Medicine BMI 2021-08-01 20.50 kg/m2 [facility] 18:43:00 of Medicine Systolic blood 2021-04-10 99 mm[Hg] [facility] pressure 18:52:00 of Medicine Diastolic blood 2021-04-10 66 mm[Hg] [facility] pressure 18:52:00 of Medicine Heart rate 2021-04-10 76 /min [facility] 18:52:00 of Medicine Body temperature 2021-04-10 35.89 Mary [facility] 18:52:00 of Medicine Body height 2021-04-10 180.3 cm [facility] 18:52:00 of Medicine Body weight 2021-04-10 66.769 kg yellow wc 62.4 [facility] 18:52:00 lbs of Medicine BMI 2021-04-10 20.53 kg/m2 [facility] 18:52:00 of Medicine Oxygen saturation 2021-04-10 100 /min [facility] in Arterial blood 18:52:00 of Medicin e by Pulse oximetry Systolic blood 2020-08-16 102 mm[Hg] University of pressure 21:05:00 [facility] Diastolic blood 2020-08-16 72 mm[Hg] University o f pressure 21:05:00 [facility] Heart rate 2020-08-16 106 /min University of 21:05:00 [facility] Oxygen saturation 2020-08-16 100 /min University of in Arterial blood 21:05:00 [facility] michele by Pulse oximetry Branch Systolic blood 2020-06-19 130 mm[Hg] University of pressure 06:00:00 [facility] Diastolic blood 2020-06-19 96 mm[Hg] University o f pressure 06:00:00 [facility] Heart rate 2020-06-19 115 /min University of 06:00:00 [facility] Respiratory rate 2020-06-19 17 /min University of 06:00:00 [facility] Oxygen saturation 2020-06-19 96 /min University of in Arterial blood 06:00:00 [facility] michele by Pulse oximetry Branch Body temperature 2020-06-19 37.28 Mary University of 02:20:00 [facility] Body height 2020-06-19 180.3 cm University of 02:20:00 [facility] Body weight 2020-06-19 65.772 kg University of 02:20:00 [facility] BMI 2020-06-19 20.22 kg/m2 University of 02:20:00 [facility] Systolic blood 2020-06-09 114 mm[Hg] University of pressure 21:00:00 [facility] Diastolic blood 2020-06-09 96 mm[Hg] University o f pressure 21:00:00 [facility] Heart rate 2020-06-09 112 /min University of 21:00:00 [facility] Respiratory rate 2020-06-09 16 /min University of 21:00:00 [facility] Oxygen saturation 2020-06-09 98 /min University of in Arterial blood 21:00:00 [facility] by Pulse oximetry Branch Body temperature 2020-06-09 36.44 Mary University of 17:30:00 [facility] Body weight 2020-06-09 68.04 kg University of 17:30:00 [facility] BMI 2020-06-09 22.81 kg/m2 University of 17:30:00 [facility] Height 2020-05-06 172.72 CM 23:28:00 Weight 2020-05-06 61.23 KG 23:28:00 Weight 2020-05-06 79.37 KG 16:00:00 Systolic blood 2020-05-01 120 mm[Hg] University of pressure 21:37:00 [facility] Diastolic blood 2020-05-01 76 mm[Hg] [facility] [place] pressure 21:37:00 [facility] Heart rate 2020-05-01 112 /min [facility] 21:37:00 [facility] Body temperature 2020-05-01 36.44 Mary [facility] 21:37:00 [facility] Body weight 2020-05-01 68.04 kg [facility] 21:37:00 [facility] BMI 2020-05-01 22.81 kg/m2 [facility] 21:37:00 [facility] Oxygen saturation 2020-05-01 96 /min [facility] in Arterial blood 21:37:00 [facility] by Pulse oximetry [place] Systolic blood 2022-05-02 120 mm[Hg] [facility] pressure 16:11:00 [facility] Diastolic blood 2022-05-02 78 mm[Hg] [facility] pressure 16:11:00 [facility] Heart rate 2022-05-02 106 /min [facility] 16:11:00 [facility] Body temperature 2022-05-02 35.78 [address] [facility] 16:11:00 [facility] Respiratory rate 2022-05-02 18 /min [facility] 16:11:00 [facility] Oxygen saturation 2022-05-02 95 /min [facility] in Arterial blood 16:11:00 [facility] nter by Pulse oximetry Body height 2022-04-[address] [facility] 01:00:00 [facility] Body weight 2022-04-[address] [facility] 01:00:00 [facility] BMI 2022-04-25 20.21 kg/m2 [facility] 01:00:00 [facility] Procedures Procedure Date / Time Performing Clinician Source Performed HOME [facility] 485 2022-06-02 06:01:00 Doctor Unassigned, No Univer marlyy of [facility] COMPREHENSIVE METABOLIC 2022-05-28 18:37:00 Maame López [facility] Medicine CBC W/AUTO DIFF WITH 2022-05-28 18:37:00 Maame López [facility] XR CHEST 2 VIEWS 2022-05-28 10:20:00 Brown, Maame Sheila [facility] POCT-GLUCOSE METER 2022-05-02 16:19:00 Hiren Rosado [facility] POCT-GLUCOSE METER 2022-05-02 11:16:00 ValtammyHiren [facility] POCT-GLUCOSE METER 2022-05-02 06:27:00 Hiren Rosado [facility] CBC W/PLT COUNT & AUTO 2022-05-02 05:31:00 Alonzo [facility] CBC W/PLT COUNT & AUTO 2022-05-02 05:31:00 Alonzo [facility] BASIC METABOLIC PANEL 2022-05-02 05:31:00 Alonzo [facility] MAGNESIUM 2022-05-02 05:31:00 Hiren Rosado [facility] PHOSPHORUS 2022-05-02 05:31:00 Hiren Rosado [facility] POCT-GLUCOSE METER 2022-05-01 23:12:00 Hiren Rosado [facility] POCT-GLUCOSE METER 2022-05-01 16:17:00 Hiren Rosado [facility] POCT-GLUCOSE METER 2022-05-01 11:25:00 Hiren Rosado [facility] POCT-GLUCOSE METER 2022-05-01 06:29:00 Hiren Rosado [facility] CBC W/PLT COUNT & AUTO 2022-05-01 03:04:00 Alon[facility] CBC W/PLT COUNT & AUTO 2022-05-01 03:04:00 Alonzo [facility] BASIC METABOLIC PANEL 2022-05-01 03:04:00 Alonzo [facility] MAGNESIUM 2022-05-01 03:04:00 Hiren Rosado [facility] PHOSPHORUS 2022-05-01 03:04:00 Hiren Rosado [facility] POCT-GLUCOSE METER 2022-04-30 23:41:00 Hiren Rosado [facility] POCT-GLUCOSE METER 2022-04-30 17:43:00 Hiren Rosado [facility] XR CHEST 1 VIEW PORTABLE 2022-04-30 11:25:00 Yuri Vora [facility] / BEDSIDE Center CBC W/PLT COUNT & AUTO 2022-04-30 03:22:00 Jonathan Rosado [facility] DIFFERENTIAL [facility] CBC W/PLT COUNT & AUTO 2022-04-30 03:22:00 Jonathan Rosado [facility] DIFFERENTIAL [facility] BASIC METABOLIC PANEL 2022-04-30 03:22:00 Jonathan Rosado [facility] MAGNESIUM 2022-04-30 03:22:00 Hiren Rosado [facility] PHOSPHORUS 2022-04-30 03:22:00 Hiren Rosado [facility] POCT-GLUCOSE METER 2022-04-29 07:12:00 Hiren Rosado [facility] CBC W/PLT COUNT & AUTO 2022-04-29 06:05:00 Jonathan Rosado [facility] DIFFERENTIAL [facility] CBC W/PLT COUNT & AUTO 2022-04-29 06:05:00 Jonathan Rosado [facility] DIFFERENTIAL [facility] BASIC METABOLIC PANEL 2022-04-29 06:05:00 Jonathan Rosado [facility] MAGNESIUM 2022-04-29 06:05:00 Hiren Rosado [facility] PHOSPHORUS 2022-04-29 06:05:00 Hiren Rosado [facility] REPORT OF PROCEDURE - 2022-04-28 14:06:30 Viktoriya Cid [facility] ENDOSCOPY URL [facility] EGD, WITH PEG TUBE 2022-04-28 13:03:00 Viktoriya Cid [facility] INSERTION [facility] CBC W/PLT COUNT & AUTO 2022-04-28 06:19:00 Shieh, [facility] DIFFERENTIAL [facility] CBC W/PLT COUNT & AUTO 2022-04-28 06:19:00 Alonzo [facility] DIFFERENTIAL [facility] BASIC METABOLIC PANEL 2022-04-28 06:19:00 Alonzo [facility] MAGNESIUM 2022-04-28 06:19:00 Hiren Rosado [facility] [place] ESOPH SWALLOW FUNCT 2022-04-27 14:30:00 Hiren Rosado [facility] WITH CINE VIDEO Center MRSA SCREEN 2022-04-27 11:57:00 Hiren Rosado [facility] CBC W/PLT COUNT & AUTO 2022-04-27 04:29:00 Alonzo [facility] DIFFERENTIAL [facility] CBC W/PLT COUNT & AUTO 2022-04-27 04:29:00 Alonzo [facility] BASIC METABOLIC PANEL 2022-04-27 04:29:00 Alonzo [facility] MAGNESIUM 2022-04-27 04:29:00 Alonzo [facility] VANCOMYCIN LEVEL, TROUGH 2022-04-26 11:56:00 Mena Gonzales [facility] CBC W/PLT COUNT & AUTO 2022-04-26 04:55:00 Alonzo [facility] DIFFERENTIAL [facility] CBC W/PLT COUNT & AUTO 2022-04-26 04:55:00 Alonzo [facility] DIFFERENTIAL [facility] BASIC METABOLIC PANEL 2022-04-26 04:55:00 [facility] 2022-04-26 04:55:00 Alonzo [facility] CT CHEST WITH IV CONTRAST 2022-04-25 22:07:00 Yuri Vora [facility] XR CHEST 1 VIEW PORTABLE 2022-04-25 09:48:00 Alonzo [facility] / BEDSIDE [facility] STREP PNEUMONIAE ANTIGEN 2022-04-25 09:44:00 Slime Perez [facility] BLOOD CULTURE 2022-04-25 04:38:00 [facility] CBC W/PLT COUNT & AUTO 2022-04-25 04:32:[address] [facility] COMPRE[facility]ENSIVE METABOLIC 2022-04-25 04:32:00 Slime Perez u [facility] PROTHROMBIN TIME/INR 2022-04-25 04:32:00 Slime Perez C [facility] MAGNESIUM 2022-04-25 04:32:00 [facility] PHOSPHORUS 2022-04-25 04:32:00 Chris Sharp [facility] CBC W/PLT COUNT & AUTO 2022-04-25 04:32:00 Slime Perez [facility] PROCALCITONIN 2022-04-25 04:32:00 Chris Sharp [facility] BLOOD CULTURE 2022-04-25 04:31:00 Chris Sharp [facility] XR CHEST 1 VIEW PORTABLE 2022-04-19 07:36:00 Justin Hewitt [facility] / BEDSIDE [place] XR CHEST 1 VIEW PORTABLE 2022-04-18 07:14:00 Justin Hewitt [facility] / BEDSIDE [place] BASIC METABOLIC PANEL 2022-04-18 05:19:[address] [facility] MAGNESIUM 2022-04-18 05:19:00 [facility] XR CHEST 1 VIEW PORTABLE 2022-04-17 07:46:00 Justin Hewitt [facility] / BEDSIDE [facility][Note 3] BASIC METABOLIC PANEL 2022-04-17 05:53:[address] [facility] MAGNESIUM 2022-04-17 05:53:[address] [facility] CBC (HEMOGRAM ONLY) 2022-04-17 05:53:00 [facility] XR CHEST 1 VIEW PORTABLE 2022-04-16 10:32:00 Hemal Webster [facility] / BEDSIDE [facility] XR CHEST 1 VIEW PORTABLE 2022-04-16 07:01:00 Justin Hewitt [facility] / [facility] [place] BASIC METABOLIC PANEL 2022-04-16 05:35:00 [facility] MAGNESIUM 2022-04-16 05:35:[address] [facility] [address] CHEST WITHOUT IV 2022-04-15 11:03:00 [facility] VANCOMYCIN LEVEL, TROUGH 2022-04-15 07:36:00 Stefanie Wong [facility] XR CHEST 1 VIEW PORTABLE 2022-04-15 07:12:00 Justin Hewitt [facility] BLO[facility] 2022-04-15 04:52:00 [facility] LACTIC ACID, VENOUS 2022-04-15 04:52:00 [facility] BLOOD CULTURE 2022-04-15 04:51:00 [facility] BASIC METABOLIC PANEL 2022-04-15 03:52:00 [facility] MAGNESIUM 2022-04-15 03:52:00 [facility] CBC (HEMOGRAM ONLY) 2022-04-15 03:52:00 [facility] XR CHEST 1 VIEW PORTABLE 2022-04-14 08:45:00 Rahul Ervin [facility] BASIC METABOLIC PANEL 2022-04-14 06:13:00 [facility] 2022-04-14 06:13:00 [facility] XR CHEST 1 VIEW PORTABLE 2022-04-13 16:11:00 Justin Hewitt [facility] / [facility] [place] LACTATE DEHYDROGENASE 2022-04-13 15:05:00 [facility] BASIC METABOLIC PANEL 2022-04-13 04:11:00 [facility] MAGNESIUM 2022-04-13 04:11:00 [facility] CBC (HEMOGRAM ONLY) 2022-04-13 04:11:00 [facility] TSH/FREE T4 IF INDICATED 2022-04-13 04:11:00 [facility] HIGH SENSITIVITY TROPONIN 2022-04-12 20:14:00 [facility] ECG 12-LEAD 2022-04-12 19:01:28 [facility] VANCOMYCIN LEVEL, TROUGH 2022-04-12 05:42:00 Lauren Ramos [facility] BASIC METABOLIC PANEL 2022-04-12 05:42:00 [facility] MAGNESIUM 2022-04-12 05:42:00 [facility] XR ABDOMEN/KUB 1 VIEW 2022-04-11 18:56:00 [facility] PORTABLE Center CT CHEST WITHOUT IV 2022-04-11 15:29:00 Rahul Ervin [facility] CONTRAST Center AFB CULTURE + SMEAR 2022-04-11 11:41:00 Rahul Ervin [facility] (NON-SPUTUM) Center BODY FLUID CULTURE + GRAM 2022-04-11 11:40:00 Rahul Ervin [facility] STAIN Center FUNGUS CULTURE + SMEAR 2022-04-11 11:40:00 Rahul Ervin [facility] BODY FLUID CELL COUNT 2022-04-11 11:36:00 Rahul Ervin [facility] WITH DIFFERENTIAL [place] PH, BODY FLUID 2022-04-11 11:35:00 Aziza Rahul [facility] LACTATE DEHYDROGENASE 2022-04-11 11:34:00 Aziza Rahul [facility] ([facility] BODY FLUID Center GLUCOSE, BODY FLUID 2022-04-11 11:34:00 Arif, [facility] XR CHEST 1 VIEW PORTABLE 2022-04-11 10:55:00 Rahul Ervin [facility] / BEDSIDE Center CBC W/PLT COUNT & AUTO 2022-04-11 05:29:00 Yvonne Ramos [facility] DIFFERENTIAL [place] BASIC METABOLIC PANEL 2022-04-11 05:29:00 [facility] 2022-04-11 05:29:00 [facility]US 2022-04-11 05:29:00 Erika [facility] CBC W/PLT COUNT & AUTO 2022-04-11 05:29:00 Yvonne Ramos [facility] PROCALCITONIN 2022-04-11 05:29:00 Erika [facility] LACTATE DEHYDROGENASE 2022-04-11 05:29:00 Rahul Ervin [facility] ([facility] [place] PROTEIN, TOTAL 2022-04-11 05:29:00 Rahul Ervin [facility] MRSA SCREEN 2022-04-11 00:41:00 Erika Yvon[facility] BLOOD GAS, VENOUS 2022-04-10 22:34:00 Irene [facility] SARS-COV2/INFLUENZA/RSV 2022-04-10 20:58:00 Irene [facility]-PCR Center BLOOD CULTURE 2022-04-10 19:54:00 Irene [facility] PROTHROMBIN TIME/INR 2022-04-10 19:54:00 Irene [facility] APTT 2022-04-10 19:54:00 Irene [facility] CBC W/PLT COUNT & AUTO 2022-04-10 19:52:00 Irene, [facility] CBC W/PLT COUNT & AUTO 2022-04-10 19:52:00 Irene [facility] DIFFERENTIAL [place] LACTIC ACID, VENOUS 2022-04-10 19:52:00 Irene [facility] COMPREHENSIVE METABOLIC 2022-04-10 19:52:00 Irene [facility] PANEL [place] XR CHEST 1 VIEW PORTABLE 2022-04-10 18:43:00 Amelia Bonilla I [facility] / BEDSIDE Center COMPREHENSIVE METABOLIC 2022-04-10 17:56:00 Maame López [facility] Medicine CBC W/AUTO DIFF WITH 2022-04-10 17:56:00 Maame López [facility] VITAMIN D 25 HYDROXY 2022-04-10 17:56:00 Maame López [facility] IRON+TIBC+%SAT 2022-04-10 17:56:00 Maame López [facility] SUCTION MACHINE 2022-04-10 11:17:02 [facility] POCT-GLUCOSE METER 2022-03-31 12:09:[facility] 2022-03-31 05:49:00 [facility] CBC W/PLT COUNT & AUTO 2022-03-31 03:10:00 [facility] W/PLT COUNT & AUTO 2022-03-31 03:10:00 Namita [facility] DIFFERENTIAL [facility] BASIC METABOLIC PANEL 2022-03-31 03:10:00 [facility]UM 2022-03-31 03:10:00 [facility]ung [place] PHOSPHORUS 2022-03-31 03:10:00 Namita [facility] POCT-GLUCOSE METER 2022-03-31 00:29:00 [facility] POCT-[facility]UCOSE METER 2022-03-30 17:27:00 [facility] POCT-GLUCOSE METER 2022-03-30 12:24:00 [facility] CBC W/PLT COUNT & AUTO 2022-03-30 03:24:00 [facility] CBC W/PLT COUNT & AUTO 2022-03-30 03:24:00 [facility] METABOLIC PANEL 2022-03-30 03:24:00 [facility] MAGN[facility]UM 2022-03-30 03:24:00 [facility] PHOSPHORUS 2022-03-30 03:24:00 [facility] POCT-GLUCOSE METER 2022-03-30 00:43:00 [facility] POCT-GLUCOSE METER 2022-03-29 17:50:00 [facility] POCT-GLUCOSE METER 2022-03-29 13:09:00 [facility] POCT-GLUCOSE METER 2022-03-29 12:09:00 [facility] CBC W/PLT COUNT & AUTO 2022-03-29 11:26:00 [facility] CBC W/PLT COUNT & AUTO 2022-03-29 11:26:00 [facility] DIFFERENTIAL [facility] [place] ESOPH SWALLOW FUNCT 2022-03-29 09:40:00 Lashaun Gonzalez [facility] WITH CINE VIDEO Center XR CHEST 1 VIEW PORTABLE 2022-03-29 06:52:00 Namita [facility] / BEDSIDE [facility] BASIC METABOLIC PANEL 2022-03-29 04:23:00 Namita [facility] MAGNESIUM 2022-03-29 04:23:00 [facility] 2022-03-29 04:23:00 Namita[facility] [facility] XR CHEST 1 VIEW PORTABLE 2022-03-28 06:54:00 [facility] CBC W/PLT COUNT & AUTO 2022-03-28 03:23:00 Namita, Les [facility] DIFFERENTIAL [facility] CBC W/PLT COUNT & AUTO 2022-03-28 03:23:00 Namita, Les [facility]ENTIAL [facility] BASIC METABOLIC PANEL 2022-03-28 03:22:00 [facility]UM 2022-03-28 03:22:00 Namita, [facility] PHOSPHORUS 2022-03-28 03:22:00 Namita [facility] ECG 12-LEAD 2022-03-27 10:40:43 Lashaun Gonzalez [facility] XR CHEST 1 VIEW PORTABLE 2022-03-27 06:56:00 [facility] CBC W/PLT COUNT & AUTO 2022-03-27 03:18:00 Namita Les [facility] DIFFERENTIAL [facility] CBC W/PLT COUNT & AUTO 2022-03-27 03:18:00 [facility] BASIC METABOLIC PANEL 2022-03-27 03:18:00 [facility] [place] MAGNESIUM 2022-03-27 03:18:00 Namita [facility] [place] PHOSPHORUS 2022-03-27 03:18:00 [facility] PERIPHERAL BLOOD SMEAR - 2022-03-27 03:18:00 [facility] PATHOLOGIST REVIEW [facility] LEVETIRACETAM LEVEL 2022-03-27 03:18:00 [facility] B-TYPE NATRIURETIC FACTOR 2022-03-27 03:17:00 Kade Flannery [facility] Center POCT-GLUCOSE METER 2022-03-26 17:48:00 Jonathan [facility] POCT-GLUCOSE METER 2022-03-26 11:30:00 Aman Buckley [facility] POCT-GLUCOSE METER 2022-03-26 05:44:00 Aman Buckley [facility] CBC W/PLT COUNT & AUTO 2022-03-26 04:58:00 Tavia Domínguez [facility] CBC W/PLT COUNT & AUTO 2022-03-26 04:58:00 [facility] BASIC METABOLIC PANEL 2022-03-26 04:58:00 [facility] MAGNESIUM 2022-03-26 04:58:00 [facility] PHOSPHORUS 2022-03-26 04:58:00 [facility] XR CHEST 1 VIEW PORTABLE 2022-03-26 01:30:00 [facility] / BEDSIDE [facility] BASIC METABOLIC PANEL 2022-03-25 16:17:00 Fili [facility] MAGNESIUM 2022-03-25 16:17:00 Fili [facility] PHOSPHORUS 2022-03-25 16:17:00 [facility] XR ABDOMEN/KUB 1 VIEW 2022-03-25 11:45:00 Namita [facility] PORTABLE [facility] POCT-GLUCOSE METER 2022-03-25 11:26:00 Aman Buckley [facility] POCT-GLUCOSE METER 2022-03-25 07:01:00 Ina Aman [facility] BLOOD GAS, ARTERIAL 2022-03-25 03:39:00 Fili [facility] CBC W/PLT COUNT & AUTO 2022-03-25 03:38:00 Tavia Domínguez [facility] CBC W/PLT COUNT & AUTO 2022-03-25 03:38:00 Les Breaux [facility] DIFFERENTIAL [facility] BASIC METABOLIC PANEL 2022-03-25 03:38:00 Fili [facility] MAGNESIUM 2022-03-25 03:38:00 Fili [facility] PHOSPHORUS 2022-03-25 03:38:00 Fili, [facility] XR CHEST 1 VIEW PORTABLE 2022-03-25 02:04:00 Namita [facility] / BEDSIDE [facility] POCT-GLUCOSE METER 2022-03-25 00:26:00 Ina [facility] POCT-GLUCOSE METER 2022-03-24 17:46:00 Ina [facility] SARS-COV2/RT-PCR ([facility] & 2022-03-24 13:02:00 [facility] REF LABS) [facility] BASIC METABOLIC PANEL 2022-03-24 12:54:00 Fili, [facility] MAGNESIUM 2022-03-24 12:54:00 [facility] PHOSPH[facility]US 2022-03-24 12:54:00 [facility] POCT-GLUCOSE METER 2022-03-24 06:38:00 Ina [facility] BLOOD GAS, ARTERIAL 2022-03-24 03:53:00 [facility] CBC W/PLT COUNT & AUTO 2022-03-24 03:52:00 Tavia Domínguez [facility] DIFFERENTIAL [place] CBC W/PLT COUNT & AUTO 2022-03-24 03:52:00 Namita [facility] DIFFERENTIAL [facility] CALCIUM, IONIZED 2022-03-24 03:52:00 [facility] BASIC METABOLIC PANEL 2022-03-24 03:52:00 [facility] MAGNESIUM 2022-03-24 03:52:00 [facility] PHOSPHORUS 2022-03-24 03:52:00 Fili [facility] RETICULOCYTE COUNT 2022-03-24 03:52:00 [facility] FERRITIN 2022-03-24 03:51:00 [facility] IRON, TIBC, % SAT. 2022-03-24 03:51:00 [facility] (WITHOUT FERRITIN) [facility] VITAMIN B12 2022-03-24 03:51:00 [facility] XR CHEST 1 VIEW PORTABLE 2022-03-24 01:53:00 [facility] / BEDSIDE [facility] POCT-GLUCOSE METER 2022-03-24 00:18:00 Ina [facility] POCT-GLUCOSE METER 2022-03-23 17:55:00 Ina [facility] BASIC METABOLIC PANEL 2022-03-23 16:58:00 Fili [facility] MAGNESIUM 2022-03-23 16:58:00 [facility] PHOSPHORUS 2022-03-23 16:58:00 [facility] POCT-GLUCOSE METER 2022-03-23 11:41:00 Ina [facility] XR CHEST 1 VIEW PORTABLE 2022-03-23 11:27:00 [facility] POCT-GLUCOSE METER 2022-03-23 06:59:00 [facility] BLOOD [facility]AS, ARTERIAL 2022-03-23 02:54:00 F[facility] CBC W/PLT COUNT & AUTO 2022-03-23 02:53:00 Tavia Domínguez [facility] CBC W/PLT COUNT & AUTO 2022-03-23 02:53:00 [facility] DIFFERENTIAL [facility] CALCIUM, IONIZED 2022-03-23 02:53:00 [facility] BASIC METABOLIC PANEL 2022-03-23 02:53:00 Fili [facility] MAGNESIUM 2022-03-23 02:53:00 [facility] PHOSPHORUS 2022-03-23 02:53:00 [facility] HEPATIC FUNCTION PANEL 2022-03-23 02:53:00 [facility] XR CHEST 1 VIEW PORTABLE 2022-03-23 01:50:00 [facility] / BEDSIDE [facility] POCT-GLUCOSE METER 2022-03-23 00:16:00 Aman Buckley [facility] BLOOD CULTURE 2022-03-22 20:19:[address] [facility] URINE CULTURE 2022-03-22 20:19:00 [facility]IN[facility] W/ REFLEX 2022-03-22 20:19:00 [facility] Center SPUTUM CULTURE + GRAM 2022-03-22 20:18:00 [facility] POCT-GLUCOSE METER 2022-03-22 18:12:00 Aman Buckley [facility] LACTIC ACID, ARTERIAL 2022-03-22 17:47:00 Clemencia Fournier [facility] BASIC METABOLIC PANEL 2022-03-22 17:18:00 Fili, [facility] MAGNESIUM 2022-03-22 17:18:00 [facility] PHOSPHORUS 2022-03-22 17:18:00 [facility] PROCALCITONIN 2022-03-22 17:18:00 [facility] POCT-GLUCOSE METER 2022-03-22 11:44:00 Aman Buckley [facility] CBC W/PLT COUNT & AUTO 2022-03-22 04:00:00 Tavia Domínguez [facility] CBC W/PLT COUNT & AUTO 2022-03-22 04:00:00 [facility] CALCIUM, IONIZED 2022-03-22 04:00:00 [facility] BLOOD GAS, ARTERIAL 2022-03-22 04:00:00 [facility] BASIC METABOLIC PANEL 2022-03-22 04:00:00 [facility] MAGNESIUM 2022-03-22 04:00:00 [facility] PHOSPHORUS 2022-03-22 04:00:00 [facility] XR CHEST 1 VIEW PORTABLE 2022-03-22 01:53:00 Namita [facility] / BEDSIDE [facility] POCT-GLUCOSE METER 2022-03-22 00:10:00 Ina [facility] POCT-GLUCOSE METER 2022-03-21 17:58:00 Ina [facility] BASIC METABOLIC PANEL 2022-03-21 15:26:00 Fili [facility] MAGNESIUM 2022-03-21 15:26:00 [facility] PHOSPHORUS 2022-03-21 15:26:00 [facility] POCT-GLUCOSE METER 2022-03-21 12:08:00 Ina Aman [facility] LACTIC ACID, ARTERIAL 2022-03-21 08:53:00 [facility] CBC W/PLT COUNT & AUTO 2022-03-21 03:26:[address] [facility] CBC W/PLT COUNT & AUTO 2022-03-21 03:26:00 NamitaLes [facility] DIFFERENTIAL [facility] CALCIUM, IONIZED 2022-03-21 03:26:00 [facility] BASIC METABOLIC PANEL 2022-03-21 03:26:00 Fili, [facility] MAGNESIUM 2022-03-21 03:26:00 Fili, [facility] PHOSPHORUS 2022-03-21 03:26:00 Fili [facility] BLOOD GAS, ARTERIAL 2022-03-21 03:26:00 [facility] HE[facility]CTION PANEL 2022-03-21 03:26:00 Aman Buckley [facility] LIPASE 2022-03-21 03:26:00 Ina [facility] LACTIC ACID, ARTERIAL 2022-03-21 03:26:00 [facility] XR CHEST 1 VIEW PORTABLE 2022-03-21 01:43:00 Les Breaux [facility] / [facility] POCT-GLUCOSE METER 2022-03-20 23:41:00 Ina Aman [facility] BLOOD GAS, ARTERIAL 2022-03-20 20:42:00 [facility] 1 VIEW PORTABLE 2022-03-20 20:39:00 [facility] BASIC METABOLIC PANEL 2022-03-20 20:25:00 Fili [facility] MAGNESIUM 2022-03-20 20:25:00 Fili [facility] PHOSPHORUS 2022-03-20 20:25:00 [facility] POCT-GLUCOSE METER 2022-03-20 16:24:00 Aman Buckley [facility] BASIC METABOLIC PANEL 2022-03-20 11:51:00 Fili [facility] MAGNESIUM 2022-03-20 11:51:00 [facility] PHOSPHORUS 2022-03-20 11:51:00 [facility] POCT-GLUCOSE METER 2022-03-20 11:48:00 Aman Buckley [facility] BLOOD GAS, ARTERIAL 2022-03-20 03:13:00 Amy Guillory [facility] CBC W/PLT COUNT & AUTO 2022-03-20 03:12:00 Tavia Domínguez [facility] Center CBC W/PLT COUNT & AUTO 2022-03-20 03:12:00 Namita [facility] DIFFERENTIAL [facility] CALCIUM, IONIZED 2022-03-20 03:12:00 [facility] TSH/FREE T4 IF INDICATED 2022-03-20 03:12:00 [facility] BASIC METABOLIC PANEL 2022-03-20 03:12:00 [facility] MAGNESIUM 2022-03-20 03:12:00 [facility] PHOSPHORUS 2022-03-20 03:12:00 [facility] XR CHEST 1 VIEW PORTABLE 2022-03-20 01:15:00 Namita [facility] / BEDSIDE [facility] POCT-GLUCOSE METER 2022-03-20 00:01:00 Aman Buckley [facility] BASIC METABOLIC PANEL 2022-03-19 20:34:00 [facility] MAGNESIUM 2022-03-19 20:34:00 [facility] PHOSPHORUS 2022-03-19 20:34:00 [facility] POCT-GLUCOSE METER 2022-03-19 17:50:00 Aman Buckley [facility] BLOOD GAS, ARTERIAL 2022-03-19 17:47:00 Kahlil [facility] CYTOLOGY 2022-03-19 17:40:00 [facility] FUNGUS CULTURE + SMEAR 2022-03-19 17:40:00 [facility] MYCOPLASMA PNEUMONIAE 2022-03-19 17:40:00 [facility] DNA, QUALITATIVE, Center REAL-TIME PCR BODY FLUID CELL COUNT 2022-03-19 17:39:00 Fili [facility] WITH DIFFERENTIAL Center SPIN/CONCENTRATION CHARGE 2022-03-19 17:37:00 Fili [facility] I [facility] BRONCHIAL CULTURE + GRAM 2022-03-19 17:37:00 Fili [facility] STAIN Center AFB CULTURE + SMEAR 2022-03-19 17:37:00 Fili, [facility] (NON-SPUTUM) Center LEGIONELLA CULTURE 2022-03-19 17:37:00 Fili [facility] VIRUS CULTURE 2022-03-19 17:37:00 [facility] MISCELLANEOUS LAB ORDER 2022-03-19 17:37:00 [facility] CHLAMYDIA PNEUMONIAE PCR 2022-03-19 17:31:00 Aman Buckley ra [facility] BASIC METABOLIC PANEL 2022-03-19 13:25:00 Fili [facility] MAGNESIUM 2022-03-19 13:25:00 Fili [facility] PHOSPHORUS 2022-03-19 13:25:00 Fili, [facility] POCT-GLUCOSE METER 2022-03-19 12:00:00 Aman Buckley Vivi [facility] XR CHEST 1 VIEW PORTABLE 2022-03-19 05:40:00 Les Breaux [facility] / BEDSIDE [facility] POCT-GLUCOSE METER 2022-03-19 05:39:00 Aman Buckley [facility] CBC W/PLT COUNT & AUTO 2022-03-19 02:19:00 Tavia Domínguez [facility] Center VANCOMYCIN LEVEL, TROUGH 2022-03-19 02:19:00 Genoveva August [facility] CBC W/PLT COUNT & AUTO 2022-03-19 02:19:00 Les Breaux [facility] DIFFERENTIAL [facility] PHOSPHORUS 2022-03-19 02:19:00 Fili, [facility] CALCIUM, IONIZED 2022-03-19 02:19:00 Giovana [facility] BLOOD GAS, ARTERIAL 2022-03-19 02:19:00 Kahlil, [facility] BASIC METABOLIC PANEL 2022-03-19 02:19:00 [facility]ahlil[facility] MAGNESIUM 2022-03-19 02:19:00 K[facility] POCT-GLUCOSE METER 2022-03-19 02:12:00 Ina Aman [facility] CT ABDOMEN/PELVIS WITH IV 2022-03-19 00:52:00 Clemencia Fournier [facility] POCT-GLUCOSE METER 2022-03-18 18:48:00 Ina [facility] US ABDOMEN LIMITED 2022-03-18 16:40:00 Clemencia Fournier [facility] BLOOD GAS, ARTERIAL 2022-03-18 16:29:00 Kahlli [facility] BASIC METABOLIC PANEL 2022-03-18 16:29:00 Kahlil, [facility] MAGNESIUM 2022-03-18 16:29:00 Kahlil, [facility] POCT-GLUCOSE METER 2022-03-18 12:22:00 Ina Aman [facility] EEG AWAKE AND DROWSY 2022-03-18 09:58:00 Clemencia Fournier [facility] SPUTUM CULTURE + GRAM 2022-03-18 05:41:00 Carmen Sharp [facility] STAIN Center BLOOD CULTURE 2022-03-18 05:21:00 Aron [facility] XR CHEST 1 VIEW PORTABLE 2022-03-18 03:00:00 Les Breaux [facility] / BEDSIDE [facility] CBC W/PLT COUNT & AUTO 2022-03-18 02:52:00 Tavia Domínguez [facility] DIFFERENTIAL Center CBC W/PLT COUNT & AUTO 2022-03-18 02:52:00 Les Breaux [facility] DIFFERENTIAL [facility] PHOSPHORUS 2022-03-18 02:52:00 [facility] CALCIUM, IONIZED 2022-03-18 02:52:00 [facility] BLOOD GAS, ARTERIAL 2022-03-18 02:52:00 Kahlil, [facility] BASIC METABOLIC PANEL 2022-03-18 02:52:00 Kahlil, [facility] MAGNESIUM 2022-03-18 02:52:00 Kahlil, [facility] HEPATIC FUNCTION PANEL 2022-03-18 02:52:00 Clemencia Fournier [facility] POCT-GLUCOSE METER 2022-03-17 18:44:00 Ina Aman [facility] BASIC METABOLIC PANEL 2022-03-17 17:38:00 Kahlil, [facility] MAGNESIUM 2022-03-17 17:38:00 Kahlil, [facility] BLOOD GAS, ARTERIAL 2022-03-17 17:37:00 Kahlil, [facility] SARS-COV2/RT-PCR ([facility] & 2022-03-17 14:08:00 Namita [facility] REF LABS) [facility] VANCOMYCIN LEVEL, TROUGH 2022-03-17 14:08:00 Jeet Rice [facility] POCT-GLUCOSE METER 2022-03-17 11:18:00 Aman Buckley [facility] XR CHEST 1 VIEW PORTABLE 2022-03-17 02:41:00 Les Breaux [facility] / BEDSIDE [facility] CBC W/PLT COUNT & AUTO 2022-03-17 02:35:00 Tavia Domínguez [facility] DIFFERENTIAL Center CBC W/PLT COUNT & AUTO 2022-03-17 02:35:00 eLs Breaux [facility] DIFFERENTIAL [facility] PHOSPHORUS 2022-03-17 02:35:00 [facility] CALCIUM, IONIZED 2022-03-17 02:35:00 [facility] BLOOD GAS, ARTERIAL 2022-03-17 02:35:00 Kahlil, [facility] BASIC METABOLIC PANEL 2022-03-17 02:35:00 [facility], [facility] MAGNESIUM 2022-03-17 02:35:00 Kahlil, [facility] LIPASE 2022-03-17 02:35:00 Opal Nevarez [facility] POCT-GLUCOSE METER 2022-03-16 18:29:00 [place], Zhane [facility] XR CHEST 1 VIEW PORTABLE 2022-03-16 16:59:00 Kahlil, [facility] / BEDSIDE Center BLOOD GAS, ARTERIAL 2022-03-16 16:19:00 Kahlil, [facility] BASIC METABOLIC PANEL 2022-03-16 16:19:00 Kahlil, [facility] MAGNESIUM 2022-03-16 16:19:00 Kahlil, [facility] VENOUS DOPPLER ARMS 2022-03-16 16:10:00 DaviehaKeily larson [facility] POCT-GLUCOSE METER 2022-03-16 11:24:00 [place], [facility] PROCALCITONIN 2022-03-16 10:01:00 Kahlil, [facility] VENOUS DOPPLER LEGS 2022-03-16 08:30:00 Kamran Wilson [facility] POCT-GLUCOSE METER 2022-03-16 06:19:00 [place] Zhane [facility] BLOOD GAS, ARTERIAL 2022-03-16 03:21:00 Kahlil, [facility] CBC W/PLT COUNT & AUTO 2022-03-16 03:20:00 Tavia Domínguez [facility] CBC W/PLT COUNT & AUTO 2022-03-16 03:20:00 Les Breaux [facility] DIFFERENTIAL [facility] PHOSPHORUS 2022-03-16 03:20:00 Giovana Penn [facility] CALCIUM, IONIZED 2022-03-16 03:20:00 Giovana [facility] BASIC METABOLIC PANEL 2022-03-16 03:20:00 Kahlil [facility] MAGNESIUM 2022-03-16 03:20:00 Kahlil, [facility] HEPATIC FUNCTION PANEL 2022-03-16 03:20:00 Anthony [facility] URINALYSIS WITHOUT 2022-03-16 02:26:00 [facility] BLOOD CULTURE 2022-03-16 02:11:00 [facility] BLOOD CULTURE 2022-03-16 02:05:00 [facility] SPUTUM CULTURE + GRAM 2022-03-16 01:36:00 [facility] XR CHEST 1 VIEW PORTABLE 2022-03-16 01:05:00 Les Breaux [facility] / BEDSIDE [facility] POCT-GLUCOSE METER 2022-03-15 23:57:00 Mtkelsea [facility] POCT-GLUCOSE METER 2022-03-15 17:50:00 [facility] BLOOD GAS, ARTERIAL 2022-03-15 17:13:00 Kahlil, [facility] BASIC METABOLIC PANEL 2022-03-15 17:13:00 Kahlil, [facility] MAGNESIUM 2022-03-15 17:13:00 Kahlil, [facility] BLOOD GAS, ARTERIAL 2022-03-15 12:04:00 Kahlil, [facility] POCT-GLUCOSE METER 2022-03-15 11:05:00 Anthony [facility] POCT-GLUCOSE METER 2022-03-15 05:57:00 [facility] CBC W/PLT COUNT & AUTO 2022-03-15 02:35:00 Tavia Domínguez [facility] CBC W/PLT COUNT & AUTO 2022-03-15 02:35:00 Namita [facility] DIFFERENTIAL [facility] BASIC METABOLIC PANEL 2022-03-15 02:35:00 Tavia Domínguez [facility] MAGNESIUM 2022-03-15 02:35:00 Tavia Domínguez [facility] PHOSPHORUS 2022-03-15 02:35:00 Fili [facility] CALCIUM, IONIZED 2022-03-15 02:35:00 Fili [facility] BLOOD GAS, ARTERIAL 2022-03-15 02:35:00 Kahlil [facility] POCT-GLUCOSE METER 2022-03-15 00:52:00 [place], [facility] XR CHEST 1 VIEW PORTABLE 2022-03-15 00:27:00 Namita [facility] / BEDSIDE [facility] BASIC METABOLIC PANEL 2022-03-14 20:57:00 Kapoor [facility] MAGNESIUM 2022-03-14 20:57:00 Kapoor, [facility] BLOOD GAS, ARTERIAL 2022-03-14 17:05:00 Kahlil [facility] POCT-GLUCOSE METER 2022-03-14 17:03:00 [facility] SPUTUM CULTURE + GRAM 2022-03-14 14:15:00 [facility] POCT-GLUCOSE METER 2022-03-14 12:00:00 [place], [facility] BLOOD GAS, ARTERIAL 2022-03-14 09:32:00 [facility] 2022-03-14 06:36:00 [place], [facility] BLOOD GAS, ARTERIAL 2022-03-14 06:35:00 Cam Rodas [facility] CBC W/PLT COUNT & AUTO 2022-03-14 01:34:[address] [facility] CBC W/PLT COUNT & AUTO 2022-03-14 01:34:00 [facility] BASIC METABOLIC PANEL 2022-03-14 01:34:00 Tavia Domínguez [facility] MAGNESIUM 2022-03-14 01:34:00 Tavia Domínguez [facility] PHOSPHORUS 2022-03-14 01:34:00 Fili [facility] BLOOD GAS, ARTERIAL 2022-03-14 01:34:00 Fili [facility] CALCIUM, IONIZED 2022-03-14 01:34:00 Fili [facility] XR CHEST 1 VIEW PORTABLE 2022-03-14 00:38:00 Les Breaux [facility] / BEDSIDE [facility] POCT-GLUCOSE METER 2022-03-13 23:37:00 Wajocelyn [facility] POCT-GLUCOSE METER 2022-03-13 17:48:00 [facility] BLOOD GAS, ARTERIAL 2022-03-13 11:50:00 Fili [facility] POCT-GLUCOSE METER 2022-03-13 11:47:00 Mtjocelyn [facility] POCT-GLUCOSE METER 2022-03-13 06:03:00 [facility] LACTIC ACID, ARTERIAL 2022-03-13 03:25:00 Cam Rodas [facility] BASIC METABOLIC PANEL 2022-03-13 02:16:00 Tavia Domínguez [facility] MAGNESIUM 2022-03-13 02:16:00 Tavia Domínguez [facility] PHOSPHORUS 2022-03-13 02:16:00 Fili [facility] CBC W/PLT COUNT & AUTO 2022-03-13 02:15:00 [facility] W/PLT COUNT & AUTO 2022-03-13 02:15:00 NamitaLes [facility] DIFFERENTIAL [facility] BLOOD GAS, ARTERIAL 2022-03-13 02:15:00 [facility] CALCIUM, IONIZED 2022-03-13 02:15:00 [facility] XR CHEST 1 VIEW PORTABLE 2022-03-13 00:28:00 Namita, [facility] / BEDSIDE [facility] POCT-GLUCOSE METER 2022-03-12 23:39:00 [facility] BLOOD GAS, ARTERIAL 2022-03-12 17:30:00 Clemencia Fournier [facility] POCT-GLUCOSE METER 2022-03-12 17:28:00 [facility] XR CHEST 1 VIEW PORTABLE 2022-03-12 13:27:00 Fili, [facility] / BEDSIDE Center POTASSIUM 2022-03-12 12:17:00 [facility] MAGNESIUM 2022-03-12 12:17:00 [facility] PHOSPHORUS 2022-03-12 12:17:00 [facility] CALCIUM, IONIZED 2022-03-12 12:17:00 [facility] BLOOD GAS, ARTERIAL 2022-03-12 11:48:00 [facility] POCT-GLUCOSE METER 2022-03-12 11:11:00 Anthony Zhane [facility] STREP PNEUMONIAE ANTIGEN 2022-03-12 08:50:00 [facility] LEGIONELLA ANTIGEN, URINE 2022-03-12 08:49:00 [facility] BRONCHIAL CULTURE + GRAM 2022-03-12 07:16:00 Jerilyn Rubin [facility] POCT-GLUCOSE METER 2022-03-12 06:24:00 Elsy [facility] BLOOD GAS, ARTERIAL 2022-03-12 04:53:00 Sparkle Claudio [facility] CBC W/PLT COUNT & AUTO 2022-03-12 04:51:[address] [facility] CBC W/PLT COUNT & AUTO 2022-03-12 04:51:00 Les Breaux [facility] DIFFERENTIAL [facility] BASIC METABOLIC PANEL 2022-03-12 04:51:00 Tavia Domínguez [facility] MAGNESIUM 2022-03-12 04:51:00 Tavia Domínguez [facility] PHOSPHORUS 2022-03-12 04:51:00 Cam Rodas [facility] HEPATIC FUNCTION PANEL 2022-03-12 04:51:00 [facility] POCT-GLUCOSE METER 2022-03-12 01:20:00 [facility] XR CHEST 1 VIEW PORTABLE 2022-03-12 01:00:00 Sparkle Claudio [facility] / BEDSIDE [facility] POCT-GLUCOSE METER 2022-03-11 17:24:00 Shin Cochran [facility] CBC W/PLT COUNT & AUTO 2022-03-11 17:14:00 Clemencia Fournier [facility] CBC W/PLT COUNT & AUTO 2022-03-11 17:14:00 Clemencia Fournier [facility] MR BRAIN WITHOUT IV 2022-03-11 17:09:00 Sparkle Claudio [facility] CONTRAST [facility] EEG AWAKE AND DROWSY 2022-03-11 13:22:00 Clemencia Fournier [facility] POCT-GLUCOSE METER 2022-03-11 11:12:00 Shin Cochran [facility] LIMITED 2D ECHOCARDIOGRAM 2022-03-11 11:04:10 Kala Lopez [facility] CBC W/PLT COUNT & AUTO 2022-03-11 05:08:[address] [facility] CBC W/PLT COUNT & AUTO 2022-03-11 05:08:00 Les Breaux [facility] DIFFERENTIAL Dung [place] BASIC METABOLIC PANEL 2022-03-11 05:08:00 [facility]UM 2022-03-11 05:08:00 Brianna Domínguezhal [facility] BLOOD GAS, ARTERIAL 2022-03-11 05:08:00 [facility]OS[facility]US 2022-03-11 05:08:00 Cam Rodas [facility] HEPATIC FUNCTION PANEL 2022-03-11 05:08:00 Shin Cochran [facility] POCT-GLUCOSE METER 2022-03-11 01:20:00 Shin Cochran [facility] CT BRAIN WITHOUT IV 2022-03-10 22:35:00 Shanon [facility] CONTRAST [facility] CALCIUM, IONIZED 2022-03-10 20:36:00 Cam Rodas [facility] BLOOD GAS, ARTERIAL 2022-03-10 16:00:00 [facility] LACTIC ACID, ARTERIAL 2022-03-10 15:58:00 [facility] POCT-GLUCOSE METER 2022-03-10 15:58:00 Shin Cochran [facility] B-TYPE NATRIURETIC FACTOR 2022-03-10 12:18:[address] [facility] (BNP) [facility] BASIC METABOLIC PANEL 2022-03-10 12:18:00 [facility] VANCOMYCIN LEVEL, TROUGH 2022-03-10 11:23:00 Shalom Benson [facility] POCT-GLUCOSE METER 2022-03-10 11:22:00 Shin Cochran [facility] ECG 12-LEAD 2022-03-10 11:12:20 [facility]ian [facility] 12-LEAD 2022-03-10 11:12:20 Unknown, Hl7 Doctor [facility] BLOOD GAS, ARTERIAL 2022-03-10 09:03:00 [facility] LACTIC ACID, ARTERIAL 2022-03-10 08:48:00 Shanon [facility] XR CHEST 1 VIEW PORTABLE 2022-03-10 08:14:00 Shin Cochran [facility] / BEDSIDE [facility] XR ABDOMEN/KUB 1 VIEW 2022-03-10 08:12:00 [facility] BLOOD GAS, ARTERIAL 2022-03-10 06:35:00 Florian Rodasel Sahra [facility] CBC W/PLT COUNT & AUTO 2022-03-10 02:47:00 Tavia Domínguez [facility] DIFFERENTIAL [place] (CELLAVISION MANUAL DIFF) 2022-03-10 02:47:00 Tavia Domínguez [facility] CBC W/PLT COUNT & AUTO 2022-03-10 02:47:00 Les Breaux [facility] DIFFERENTIAL [facility] BASIC METABOLIC PANEL 2022-03-10 02:47:00 Tavia Domínguez [facility] MAGNESIUM 2022-03-10 02:47:00 Tavia Domínguez [facility] PHOSPHORUS 2022-03-10 02:47:00 Cam Rodas [facility] BLOOD GAS, VENOUS 2022-03-10 02:47:00 [facility] LACTIC ACID, VENOUS 2022-03-10 02:47:00 [facility] Sahra [facility] XR CHEST 1 VIEW PORTABLE 2022-03-10 02:10:00 Esau London [facility] / BEDSIDE Center XR CHEST 1 VIEW PORTABLE 2022-03-10 01:11:00 Jovana [facility] Center POCT-GLUCOSE METER 2022-03-10 01:10:00 [facility] CALCIUM, IONIZED 2022-03-10 01:00:00 Jovana [facility] BLOOD GAS, VENOUS 2022-03-10 01:00:00 Jovana [facility] HIGH SENSITIVITY TROPONIN 2022-03-09 20:06:00 Esau London [facility] B-TYPE NATRIURETIC FACTOR 2022-03-09 20:06:00 Lita [facility] (BNP) [place] BLOOD GAS, VENOUS 2022-03-09 18:12:00 [facility] XR CHEST 1 VIEW PORTABLE 2022-03-09 17:43:00 David Baldwin [facility] BEDSIDE [place] URINALYSIS W/ REFLEX 2022-03-09 08:23:00 [facility] CULTURE [facility] SPUTUM CULTURE + GRAM 2022-03-09 08:09:00 [facility] STAIN [facility] MRSA SCREEN 2022-03-09 07:48:00 [facility] RESPIRATORY PANEL 2022-03-09 07:48:00 Sang [facility] LACTIC ACID, VENOUS 2022-03-09 07:48:00 Sang [facility] PROCALCITONIN 2022-03-09 07:48:00 Tavia Domínguez [facility] CBC W/PLT COUNT & AUTO 2022-03-09 04:02:00 [facility] DIFFERENTIAL [facility] (CELLAVISION MANUAL DIFF) 2022-03-09 04:02:00 [facility] SARS-COV2/INFLUENZA/RSV 2022-03-09 04:02:00 David Blackmon [facility] RT-PCR Center BASIC METABOLIC PANEL 2022-03-09 04:02:00 SeemaFormerly [facility] PHOSPHORUS 2022-03-09 04:02:00 Seema [facility] MAGNESIUM 2022-03-09 04:02:00 Seema [facility] CBC W/PLT COUNT & AUTO 2022-03-09 04:02:00 Jonathan Stephenson [facility] DIFFERENTIAL [facility] LACTIC ACID, VENOUS 2022-03-09 01:43:00 Amelia Avilez [facility] BLOOD CULTURE 2022-03-08 21:58:00 Amelia Avilez [facility] LACTIC ACID, VENOUS 2022-03-08 21:58:00 Amelia Avilez [facility] PROTHROMBIN TIME/INR 2022-03-08 21:58:00 Amelia Avilez [facility] APTT 2022-03-08 21:58:00 Amelia Avilez [facility] CBC W/PLT COUNT & AUTO 2022-03-08 20:25:00 Amelia Avilez [facility] (CELLAVISION MANUAL DIFF) 2022-03-08 20:25:[address] [facility] BASIC METABOLIC PANEL 2022-03-08 20:25:00 Amelia Avilez [facility] MAGNESIUM 2022-03-08 20:25:00 Amelia Avilez [facility] HIGH SENSITIVITY TROPONIN 2022-03-08 20:25:00 Fatmata [facility] CBC W/PLT COUNT & AUTO 2022-03-08 20:25:00 Amelia Avilez [facility] ECG 12-LEAD 2022-03-08 20:16:57 Amelia Avilez [facility] ECG 12-LEAD 2022-03-08 20:16:57 Unknown, Hl7 Doctor [facility] XR CHEST 1 VIEW PORTABLE 2022-03-08 20:05:00 Amelia Avilez [facility] / BEDSIDE Center EKG-SCANNED 2022-03-08 00:00:00 Provider, [facility] COMPREHENSIVE METABOLIC 2022-03-07 13:21:11 [facility] PANEL Medicine CLOBAZAM, SERUM 2022-03-07 13:21:11 [facility] CBC W/AUTO DIFF WITH 2022-03-07 13:21:11 [facility] PLATELETS Medicine AMMONIA 2022-03-07 13:21:11 [facility] URINALYSIS, COMPLETE 2022-03-07 13:21:11 [facility]/REFLEX TO CULTURE Medicine MR BRAIN WITH & WITHOUT 2021-11-24 14:51:00 Melinda Talavera CH I [facility] IV CONTRAST Center PROCEDURE, IN 2021-11-24 13:30:00 Virtual, Surgeon [facility] NON-OPERATING ROOM Center SETTING ECG 12-LEAD 2021-11-24 12:50:30 Chelsie Manriquez [facility] BASIC METABOLIC PANEL 2021-11-24 12:39:00 Chelsie Manriquez [facility] ASSIGNMENT OF BENEFITS 2021-11-22 23:17:22 Doctor Unassigned, No [facility] SARS-COV2/RT-PCR ([facility] & 2021-11-14 04:20:00 Giovana Hong [facility] REF LABS) Center CBC W/PLT COUNT & AUTO 2021-11-14 04:15:00 Kingsley Ramires [facility] DIFFERENTIAL Center CBC W/PLT COUNT & AUTO 2021-11-14 04:15:00 Kingsley Ramires [facility] DIFFERENTIAL Center COMPREHENSIVE METABOLIC 2021-11-14 04:15:00 [facility]EL [facility] ECG 12-LEAD 2021-11-13 10:17:28 Giovana Hong [facility] OTHER SUPPLY 2021-08-07 16:45:17 [facility] Medicine EXTERNAL PROVIDER RECORDS 2021-05-18 06:01:00 Doctor Unassigned, No [facility] EXTERNAL PROVIDER RECORDS 2021-02-07 05:01:00 Doctor Unassigned, No [facility] FL MODIFIED BARIUM 2020-09-14 19:52:07 Requisition, Paper [facility] SWALLOW Medical Branch URINALYSIS 2020-06-19 03:52:00 Tammy Morris [facility] LACTIC ACID WHOLE BLOOD 2020-06-19 02:48:00 [facility] [place] LIPASE 2020-06-19 02:47:00 Tammy Morris [facility] MAGNESIUM 2020-06-19 02:47:00 Tammy Morris [facility] COMP. METABOLIC PANEL 2020-06-19 02:47:00 Tammy Morris [facility] ([id number]) [facility] [place] PHENYTOIN 2020-06-19 02:47:00 Tammy Morris [facility] CBC WITH DIFF 2020-06-19 02:47:00 Tammy Morris [facility] CT ABDOMEN PELVIS W 2020-06-09 19:10:45 Sander Piper [facility] CONTRAST [facility] Branch URINALYSIS 2020-06-09 18:42:[address] [facility] ASSIGNMENT OF BENEFITS 2020-06-09 18:06:21 Doctor Unassigned, No [facility] CONSENT/REFUSAL FOR 2020-06-09 18:01:13 Doctor Unassigned, No [facility] DIAGNOSIS AND TREATMENT [facility] NOTICE OF PRIVACY 2020-06-09 18:00:53 Doctor Unassigned, No [facility] PRACTICES [facility] BASIC METABOLIC PANEL 2020-06-09 17:49:00 [facility] (NA, K, CL, CO2, GLUCOSE, Medica l Branch BUN, CREATININE, CA) CBC WITH DIFF 2020-06-09 17:49:00 Piper, [facility] DRAIN MAO LUNGS ESTUARDO/ART 2020-05-25 00:00:00 Maggy forbes [facility] OP ENDO DX Center INSRT INFUS DEVC SUP VENA 2020-05-13 00:00:00 [facility] CAVA PERQ Center ULTRASONOGRAPHY SUP VENA 2020-05-13 00:00:00 Ila [facility] CAVA GUID Center INSERTION FEEDING DEVC 2020-05-13 00:00:[facility] STOMACH PERQ Center INSRT ET AW TRACHEA 2020-05-12 00:00:00 [facility] ESTUARDO/ART OPENING Center RESPIRATORY VENTILATION > 2020-05-12 00:00:00 [facility] 96 CON HR Center INTR TOCILIZUMAB PERIPH 2020-05-11 00:00:00 [facility] VN PERC NT5 Center INTR REMDESIVIR PERIPH VN 2020-05-07 00:00:00 [facility] PERC NT5 Center INT BARICITINIB 2020-05-07 00:00:00 [facility] michele MOUTH/PHRNX EXT NT6 Center Plan [...] PCV)] Future Scheduled 2022-06-06 TETANUS SHOT (ADULT) [facility] Test 07:58:51 [code = TETANUS SHOT of Medi cine (ADULT)] Future Scheduled 2022-06-06 Human immunodeficiency [employer] Test 07:58:51 virus screening of Medicine (procedure) [code = 166030677] Future Scheduled 2022-06-06 Hepatitis C screening [employer] Test 07:58:51 (procedure) [code = of Medic ine 374903779] Future Scheduled 2022-06-06 FLU VACCINE > 6 MONTHS [employer] Test 07:58:51 [code = FLU VACCINE > 6 of M edicine MONTHS] Future Scheduled 2022-04-11 COVID-19 Vaccine (#1) [employer] [facility] 08:33:44 [code = COVID-19 of Medicine Vaccine (#1)] Future Scheduled 2022-04-11 TETANUS SHOT (ADULT) [facility] College Test 08:33:44 [code = TETANUS SHOT of Medi cine (ADULT)] Future Scheduled 2022-04-11 Hepatitis C screening [employer] Test 08:33:44 (procedure) [code = of Medic ine 904914100] Future Scheduled 2022-04-11 [facility] 08:33:44 virus screening of Medicine (procedure) [code = 709495710] Future Scheduled 2022-04-11 FLU VACCINE > 6 MONTHS [employer] [facility] 08:33:44 [code = FLU VACCINE > 6 of M edicine MONTHS] Future Scheduled 2022-04-10 SUCTION MACHINE [code = Ordered: [facility] Test 11:17:02 NOCPT] 04/10/2022 of Medicine Future Scheduled 2022-04-10 XR CHEST PA AND LATERAL 1 Occurrences [facility] Test 11:12:51 [code = 15727-0] starting of Medicine 04/10/2022 until 04/10/2023 Future Scheduled 2022-04-10 OTHER SUPPLY [code = Ordered: [facility] Test 11:11:53 NOCPT] 04/10/2022 of Medicine Future Scheduled 2022-04-10 COVID-19 Vaccine (#1) [employer] [facility] 10:57:32 [code = COVID-19 of Medicine Vaccine (#1)] Future Scheduled 2022-04-10 TETANUS SHOT (ADULT) [facility] Test 10:57:32 [code = TETANUS SHOT of Medi cine (ADULT)] Future Scheduled 2022-04-10 Hepatitis C screening [employer] [facility] 10:57:32 (procedure) [code = of Medic ine 216418402] Future Scheduled 2022-04-10 [facility] 10:57:32 virus screening of Medicine (procedure) [code = 636972442] Future Scheduled 2022-04-10 FLU VACCINE > 6 MONTHS [employer] [facility] 10:57:32 [code = FLU VACCINE [...] Scheduled 2021-08-01 EMU ADMISSION [code = Ordered: [facility] Test 14:31:44 NOCPT] 08/01/2021 of Medicine Future Scheduled 2021-08-01 MRI BRAIN W WO CONTRAST 1 Occurrences [facility] Test 14:31:44 [code = 59314-0] starting of Medicine 08/01/2021 until 08/01/2022 Future Scheduled 2021-08-01 COMPREHENSIVE METABOLIC Ordered: [facility] Test 14:29:10 PANEL [code = 06484-3] 08/01/2021 of Me dicine Future Scheduled 2021-08-01 CBC W/AUTO DIFF WITH Ordered: [facility] Test 14:29:10 PLATELETS [code = 08/01/2021 of Medicin e 27098-3] Future Scheduled 2021-08-01 LEVETIRACETAM [code = Ordered: [facility] Test 14:29:10 66591] 08/01/2021 of Medicine Future Scheduled 2021-08-01 LACOSAMIDE, Ordered: [facility] Raudel ege Test 14:29:10 SERUM/PLASMA [code = 08/01/2021 of Torbit cine NOCPT] Future Scheduled 2021-08-01 VITAMIN D, 25-HYDROXY, Ordered: B [facility] Test 14:29:10 LC/MS/MS [code = 08/01/2021 of Medicine 1988-] Future Scheduled 2021-08-01 COVID-19 Vaccine (1) [facility] Test 13:43:08 [code = COVID-19 of Medicine Vaccine (1)] Future Scheduled 2021-08-01 TETANUS SHOT (ADULT) [facility] Test 13:43:08 [code = TETANUS SHOT of Medi cine (ADULT)] Future Scheduled 2021-08-01 Hepatitis C screening [facility] Test 13:43:08 (procedure) [code = of Medic ine 357509714] Future Scheduled 2021-08-01 Human immunodeficiency B [facility] Test 13:43:08 virus screening of Medicine (procedure) [code = 277362975] Future Scheduled 2021-08-01 FLU VACCINE > 6 MONTHS B [facility] Test 13:43:08 [code = FLU VACCINE > 6 of M edicine MONTHS] Future Scheduled 2021-04-12 COVID-19 Vaccine (1) [facility] Test 08:09:11 [code = COVID-19 of Medicine Vaccine (1)] Future Scheduled 2021-04-12 TETANUS SHOT (ADULT) [facility] Test 08:09:11 [code = TETANUS SHOT of Medi cine (ADULT)] Future Scheduled 2021-04-12 Hepatitis C screening [facility] Test 08:09:11 (procedure) [code = of Medic ine 889498909] Future Scheduled 2021-04-12 Human immunodeficiency B [facility] Test 08:09:11 virus screening of Medicine (procedure) [code = 705201784] Future Scheduled 2019-10-16 Lipid panel (procedure) [facility] Test 00:00:00 [code = 01425276] Medical Ce nter Future Scheduled 2019-10-16 Lipid panel (procedure) [facility] Test 00:00:00 [code = 59992087] Medical Ce nter Future Scheduled 2003-10-16 DTAP/TDAP/TD [...] Type Clinicians Facility Department ID 2021-02-05 Emergency [facility] [id number] Univers 05:49:09 ity of [facility] 2021-02-05 Emergency [facility] [id number] Univers 03:11:43 ity of [facility] 2022-08-06 2022-08-06 Outpatient DOLORES [facility] [id number] [facility] 14:22:38 15:00:03 AMBRIELLE Raudel ege of Medicin e 2022-07-09 2022-07-09 Outpatient DOLORES [facility] [id number] [facility] 12:46:05 13:18:07 AMBRIELLE Raudel ege of Medicin e 2022-06-22 2022-06-22 Outpatient BRENDA Strange [facility] 9 [id number] [facility] 07:01:00 07:01:00 Nathaniel 69 [facility] 2022-06-20 2022-06-20 Outpatient GINO [facility] [id number] [facility] 08:47:17 09:13:23 GRANT Castillo ge of Medicin e 2022-06-10 2022-06-10 Outpatient NYDIA VORA [id number] Nydia 00:00:00 00:00:00 YURI redding 2022-06-04 2022-06-04 Telephone Mauro [facility] [id number] [facility] 00:00:00 00:00:00 Danni SPECIALTY 350.1.13.10 ity [facility] 4.2.7.2.686 [place] [facility] [id number] [address] 2022-06-02 2022-06-02 Orders Doctor BOBBY [id number] Univers 00:00:00 00:00:00 Only Unassigned, KAITLIN 350.1.13.10 ity [facility] 4.2.7.2.686 Marc as [id number] [facility] 009 Branch 2022-05-28 2022-05-29 Office Maame López Nabeel [id number] [facility] 11:00:00 07:59:09 Visit Sheila AMBULATOR 350.1.13.21 College Y 0.2.7.2.686 of [id number] [facility] 330 e 2022-05-28 2022-05-28 Hospital Zana [facility] [id number] 09:54:44 23:59:00 Encounter Keyona Christy [facility] 2022-05-28 2022-05-28 Outpatient [facility] [id number] [facility] 09:54:44 23:59:00 KEYONA 2022-05-21 2022-05-21 Orders Maame López [facility] [id number] 00:00:00 00:00:00 Only [facility] 2022-04-25 2022-05-02 [facility] Slime Clinton [facility] [id number] 01:07:00 18:12:00 Encounter Gabino Jarquin Matthew C [facility] 2022-04-25 2022-05-02 Inpatient [facility] [id number] [facility] 01:07:00 18:12:00 [facility] 2022-04-28 2022-04-28 Surgery Palak [facility] [id number] 13:30:00 14:00:00 [facility] 2022-04-28 2022-04-28 Anesthesia Maurice Vela [facility] [id number] 13:03:00 13:23:00 Event Bobby Latif [facility] 2022-04-25 2022-04-25 Travel [facility] [id number] [facility] 00:00:00 00:00:00 [facility] 2022-04-10 2022-04-19 [facility] ER Irene Amelia [facility] [id number] 18:31:00 11:21:00 Encounter Yvonne Ramos [facility] Mary Santoyo [facility] Jude [facility] 2022-04-10 2022-04-19 Inpatient ER JUDE, [facility] Emergency [id number] SLE 18:31:00 11:21:00 CHANDLER 2022-04-12 2022-04-12 Outpatient [facility] [id number] [facility] 00:00:00 23:59:00 Colleg e of Medicin e 2022-04-10 2022-04-10 Office BRYNN MCKEON [id number] [facility] 10:43:14 15:34:16 Visit DIPABEN AMBULATOR 350.1.13.21 College Y 0.2.7.2.686 of [id number] Medi juan 315 e 2022-04-10 2022-04-10 Office Maame López [facility] 1.2.840.114 [id number] [facility] 09:30:00 15:32:19 Visit Sheila AMBULATOR 350.1.13.21 College Y 0.2.7.2.686 of [id number] Medi juan 330 e 2022-04-10 2022-04-10 Outpatient [facility] [id number] [facility] 11:25:19 11:25:19 Colleg e of Medicin e 2022-04-10 2022-04-10 Outpatient MAAME [facility] [id number] [facility] 00:00:00 00:00:00 2022-04-10 2022-04-10 Travel [facility] [id number] [facility] 00:00:00 00:00:00 [facility] 2022-03-08 2022-03-31 Hospital ER Amelia Avilez [facility] [id number] 20:31:00 17:57:00 Encounter David Blackmon, [facility], Jerome Cochran, Shin Garcia Mtkelsea, Zhaen Buckley, Aman Lowe, Jonathan Spann, Keyona Jaelyn 2022-03-08 2022-03-31 Inpatient ER ZANA, [facility] Emergency [id number] [facility] 20:31:00 17:57:00 KEYONA 2022-03-08 2022-03-08 Outpatient [facility] [id number] [facility] 00:00:00 23:59:00 Colleg e of Medicin e 2022-03-08 2022-03-08 Outpatient MAAME LÓPEZ [facility] [id number] [facility] 15:56:14 16:30:27 Colleg e of Medicin e 2022-03-08 2022-03-08 Orders [facility] [id number] 00:00:00 00:00:00 Only [facility] 2022-03-08 2022-03-08 Travel [facility] [id number] [facility] 00:00:00 00:00:00 [facility] 2022-03-07 2022-03-07 Outpatient BRYNN TALAVERA [facility] [id number] [facility] 12:53:39 13:19:17 MELINDA Colleg e of Medicin e 2022-01-15 2022-01-15 Outpatient BRYNN TALAVERA [facility] [id number] [facility] 14:23:07 14:54:06 MELINDA Colleg e of Medicin e 2021-12-19 2021-12-19 Outpatient MAAME LÓPEZ [facility] [id number] [facility] 15:57:35 16:06:10 Colleg e of Medicin e 2021-11-27 2021-11-27 Outpatient MAAME LÓPEZ [facility] [id number] [facility] 13:23:33 14:12:37 Colleg e of Medicin e 2021-11-24 2021-11-24 [facility] Eduar [facility] [id number] 12:56:05 23:59:00 Encounter Melinda Louis [facility] 2021-11-24 2021-11-24 Outpatient JADA TSAI [facility] [id number] [facility] 12:56:05 23:59:00 MELINDA 2021-11-24 2021-11-24 Outpatient BCM [facility] [id number] [facility] 11:16:00 23:59:00 Colleg e of Medicin e 2021-11-24 2021-11-24 [facility] Eduar [facility] [id number] 11:16:00 17:43:00 Encounter Melinda Louis [facility] 2021-11-24 2021-11-24 Outpatient VIRGIL TALAVERA [facility]ilber[facility] [id number] SLE 11:16:00 17:43:00 MELINDA 2021-11-24 2021-11-24 Anesthesia Lionel Lorenz [facility] [id number] [facility] 13:40:00 15:35:00 Event Sheila Morejon [facility] 2021-11-24 2021-11-24 Surgery [facility], [facility] [id number] 13:30:00 15:30:00 Surgeon [facility] 2021-11-24 2021-11-24 Outpatient [facility] [id number] [facility] 00:00:00 11:15:00 Colleg e of Medicin e 2021-11-23 2021-11-23 Outpatient BRENDA [facility] [id number] [facility] 09:44:32 23:59:00 2021-11-23 2021-11-23 [facility] [id number] 08:55:00 23:59:00 Encounter [facility] 2021-11-23 2021-11-23 Travel [facility] [id number] [facility] 00:[facility]00 00:00:00 [facility] 2021-11-22 2021-11-22 Laboratory Only, Ang Db Test [facility] 1.2.8 40.114 [id number] [facility] 18:30:00 18:45:00 [facility] 350.1.13.10 itsaloni [facility] 4.2.7.2.686 Marc as RALPH?BLEA [phone] La robyn [address] MEDICAL OFFICE [facility] 2021-11-22 2021-11-22 Outpatient R YANELI [facility] [id number] Univers 18:30:00 18:30:00 JADIEL ity of [facility] 2021-11-22 2021-11-22 Orders Doctor ROSALES 1.2.840.114 [id number] Univers 00:00:00 00:00:00 Only LexiessKAITLIN rivera 350.1.13.10 [facility] 4.2.7.2.686 Marc as [phone] [address] 2021-11-13 2021-11-17 Hospital BRENDA Hugolinhsaloni [facility] [id number] 08:41:00 13:30:00 Encounter [facility] 2021-11-13 2021-11-17 Inpatient BRENDA RODRIGUEZSaloni [facility] Neurophysio [id number] [facility] 08:41:00 13:30:00 [facility] 2021-11-13 2021-11-13 [facility] [id number] [facility] 00:00:00 23:59:00 Colleg e of Medicin e 2021-11-08 2021-11-08 Laboratory Only, Ang Db Test [facility] 1.2.8 40.114 [id number] Univers 19:00:00 19:15:00 Only Chandler Holbrook [facility] 350.1.13.10 ity [facility] 4.2.7.2.686 Marc as RALPH?BLEA [phone] La robyn OLEGARIO [address] [place] [address] MEDICAL OFFICE [facility] 2021-11-08 2021-11-08 Outpatient R YUSEF [facility] [id number] Univers 19:00:00 19:00:00 CHANDLER braswell [facility] 2021-11-08 2021-11-08 Outpatient R [facility] [id number] Univers 16:45:00 16:45:00 ity of [facility] 2021-11-08 2021-11-08 Outside Eduar [facility] [id number] 00:00:00 00:00:00 Orders Melinda LeesHelen [facility] 2021-08-09 2021-08-09 Telephone Tiffanie [facility] [id number] [facility] 00:00:00 00:00:00 Jossy wilkinson [facility] 2021-08-07 2021-08-07 Outpatient [facility] [id number] [facility] 15:53:06 16:29:26 BERTHA Castillo ge of Medicin e 2021-08-01 2021-08-01 Office TANK TALAVERA 1.2.840.114 [id number] [facility] 13:37:42 16:07:25 Visit MELINDA AMBULATOR 350.1.13.21 College Y 0.2.7.2.686 of [id number] [facility] juan 800 e 2021-06-20 2021-06-20 Outpatient DOLORES [facility] [id number] [facility] 13:18:39 13:40:51 MELYSSA roche of Medicin e 2021-05-18 2021-05-18 Orders Doctor BOBBY 1.2.840.114 [id number] Univers 00:00:00 00:00:00 Only Unassigned, KAITLIN 350.1.13.10 ity of [place] [facility] 4.2.7.2.686 Marc as [phone] [facility] michele [address] 2021-05-09 2021-05-09 Outpatient ODETTE [facility] [id number] [facility] 15:57:01 16:43:28 BERTHA meol of Medicin e 2021-04-10 2021-04-10 Office Odette [facility] 1.2.840.114 [id number] [facility] 13:00:00 14:45:17 Visit Bertha AMBULATOR 350.1.13.21 College Jesika Y 0.2.7.2.686 of [id number] [facility] juan 330 e 2021-03-07 2021-03-07 Telephone JOSE LUIS Gutierrez 1.2.840.114 [id number] Univers 00:00:00 00:00:00 [facility] 350.1.13.10 ity of [place] 4.2.7.2.686 Marc as RALPH?BLEA [phone] La jessil SPENCER [address] [place] MEDICAL OFFICE [facility] 2021-02-07 2021-02-07 Orders Doctor BOBBY 1.2.840.114 [id number] Univers 00:00:00 00:00:00 Only Unassigned, KAITLIN 350.1.13.10 ity of [place] [facility] 4.2.7.2.686 Marc as [phone] [facility] [address] 2021-01-12 2021-01-12 [facility] 1.2.840.114 [id number] Univers 00:00:00 00:00:00 Dwight Dior 350.1.13.10 ity of [place] [phone] [facility] [address] [facility] 2020-09-14 2020-09-14 Hospital Radiology [facility] 1.2.840.114 [id number] Univers 12:23:26 23:59:00 Encounter Barby 350.1.13.10 ity of [place].2.[place] [phone] [facility] [address] [place] 2020-09-14 2020-09-14 Ancillary Miriam Wilson [facility] 1.2.8 40.114 [id number] Univers 14:28:45 14:33:03 Visit Adelfo Wallace 350.1.13.10 ity of [place].2.[place] [phone] [facility] 145 [facility] 2020-09-14 2020-09-14 Outpatient R RODRIGO [facility] [id number] Univers 13:45:00 13:45:00 ADELFO ity of [facility] 2020-09-14 2020-09-14 Outpatient R RADIOLOGY [facility] [id number] Univers 00:00:00 00:00:00 ity of [facility] 2020-08-26 2020-08-26 Telephone [facility] 1.2.840.114 [id number] Univers 00:00:00 00:00:00 Dwight Dior 350.1.13.10 ity of [place] [phone] La dical nal 092 [facility] 2020-08-16 2020-08-16 Office Doc [facility] 1.2.840.114 [id number] Univers 15:35:42 17:21:31 Visit Dwight Zunigaton 350.1.13.10 ity of [place].7.2.[place] [phone] La dical nal 092 [facility] 2020-08-16 2020-08-16 Outpatient R DOCDWIGHT Carey [facility] [id number] Univers 15:40:00 15:40:00 DWIGHT GUTIERREZ ity [facility] 2020-06-18 2020-06-19 Emergency [facility] 1.2.656.871 [id number] Univers 20:17:00 00:05:00 Tammy Dior 350.1.13.10 ity of [place].2.[place] [phone] [address] 2020-06-09 2020-06-09 Emergency [facility] 1.2.726.942 [id number] Univers 11:26:00 17:03:00 Sander Dior 350.1.13.10 i ty of [place].2.[place] [phone] [address] 2020-05-07 2020-06-07 Inpatient E RYAN, [facility] TELE [id number] [facility] 15:13:00 21:19:00 [facility] 2020-05-01 2020-05-01 Urgent Provider, [facility] 1.2.840.114 [id number] Univers 15:31:30 15:51:30 Kd Jackson [facility] 350.1.13.10 ity of [place] 4.2.7.2.686 Marc as Professio [phone] La dical nal [address] [place] [address] [facility] 2020-05-01 2020-05-01 Outpatient Isa JACKSON [facility] [id number] Univers 15:20:00 15:20:00 [facility]-05-01 2020-05-01 Outpatient Isa JACKSON [facility] [id number] [facility] 13:00:00 13:00:00 [facility] 2020-04-30 2020-04-30 Nurse EveRustya Nabeel BOBBY 1.2.840.114 [id number] [facility] 00:00:00 00:00:00 Triage KAITLIN 350.1.13.10 [facility] 4.2.7.2.686 Marc as [phone] [address] Results Test Description Test Time Test Comments Results Result Comments Source AFB culture + smear (non-sputum) 2022-05-30 10:40:57 Test Item Value Reference Range Interpretation Comme nts Result (test code = 6463-4) No acid-fast bacilli isolated in 42 day s AFB Smear (test code = 61913-8) No acid fast bacilli seen [facility] + smear (non-sputum)2022-05-30 10:40:57 Test Item Value Reference Range Interpretation Comments Result (test code = No acid-fast bacilli 6463-4) isolated in 42 days AFB Smear (test code = No acid fast bacilli 27700-4) seen [facility] CULTURE + SMEAR (NON-SPUTUM)2022-05-30 10:40:57 Test Item Value Reference Range Interpretation Comments CULTURE (BEAKER) (test No acid-fast bacilli code = 1095) isolated in 42 days AFB SMEAR (BEAKER) No acid fast bacilli (test code = 994) seen RAD, CHEST, 2 [id number] 09:58:00Follow-up after recent admission, bilateral pleural effusionRelease to patient->ImmediateWhich [facility] radiology location is preferred?->[employer] ID = [id number]; Insurance Company Name = [employer]; Insurance Company Phone Number = ; Policy Number = [id number] [facility] : 1985 Sex: MFINAL REPORT [...] Mackey Verified Date/Time: 05/29/2022 09:58:12 Reading Location: [facility] Reading Room [address] [place] [address] COMPREHENSIVE METABOLIC [id number] 09:40:13 Test Item Value Reference Range Interpretation Comments GLUCOSE (test code = 82 See_Comment [Autom ated message] 2345-7) The system whic h generated this result transmitted ref erence [...] L [Au tomated message] 2160-0) The system [facility] generated this result transmitted ref erence range: 0.80 - 1 .40 MG/DL. The refe rence range was not u sed to interpret this result as normal/abnor mal. EGFR (test code = 132 See_Comment [Automate d message] 53453-6) The system [facility] generated this result transmitted ref erence range: >60 ML/MIN/1.73. Th e reference range was not used to int erpret this result as normal/abnormal . BUN/CREAT RATIO (test 38 See_Comment H [Auto mated message] code = 3097-3) The system [facility] generated this result transmitted ref erence range: 6 - 28 R ATIO. The reference r subhash was not used to interpret this result as normal/abnor mal. SODIUM (test code = 145 See_Comment [Automa claudio message] 5620-2) The system [facility] generated this result transmitted ref erence range: 133 - 14 6 MEQ/L. The refe rence range was not u sed to interpret this result as normal/abnor mal. POTASSIUM (test code = 4.2 See_Comment [Aut omated message] 4190-3) The system [facility] generated this result transmitted ref erence range: 3.5 - 5. 4 MEQ/L. The refe rence range was not u sed to interpret this result as normal/abnor mal. CHLORIDE (test code = 102 See_Comment [Auto mated message] 9287-0) The system [facility] generated this result transmitted ref erence range: 95 - 107 MEQ/L. The reference r subhash was not used to interpret this result as normal/abnor mal. CO2 (test code = 29 See_Comment [Automated message] 9430-8) The system [facility] generated this result transmitted ref erence range: 19 - 31 MEQ/L. The reference r subhash was not used to interpret this result as normal/abnor mal. CALCIUM (test code = 10.3 See_Comment [Autom ated message] 97786-6) The system [facility] generated this result transmitted ref erence range: 8.5 - 10 .5 MG/DL. The refe rence range was not u sed to interpret this result as normal/abnor mal. PROTEIN TOTAL (test 8.1 See_Comment [Automa claudio message] code = 2885-2) The system [employer] generated this result transmitted ref erence range: 6.1 - 8. 3 G/DL. The reference r subhash was not used to interpret this result as normal/abnor mal. ALBUMIN (test code = 4.3 See_Comment [Autom ated message] 65187-3) The system [facility] generated this result transmitted ref erence range: 3.5 - 5. 2 G/DL. The reference r subhash was not used to interpret this result as normal/abnor mal. GLOBULINS, SERUM, TOTAL 3.8 See_Comment H [Au tomated message] (test code = 86753-1) The sy stem which generated this result transmitted ref erence range: 1.9 - 3. 7 G/DL. The reference r subhash was not used to interpret this result as normal/abnor mal. A/G RATIO (test code = 1.1 See_Comment [Aut omated message] 1759-0) The system [facility] [employer] generated this result transmitted ref erence range: 1.0 - 2. 6 RATIO. The refe rence range was not u sed to interpret this result as normal/abnor mal. BILIRUBIN TOTAL (test 0.2 See_Comment [Auto mated message] code = 1975-2) The system [employer] generated this result transmitted ref erence range: <=1.2 MG /DL. The reference r subhash was not used to interpret this result as normal/abnor mal. ALKALINE PHOSPHATASE 161 U/L 40-117 H (test code = 6768-6) AST (SGOT) (test code = 51 U/L 9-50 H 1920-8) ALT (SGPT) (test code = 81 U/L 5-50 H Unl ess Otherwise 1744-2) Indicated, All Testing Performed At: [facility], [address] [place] [address] Laborator y Director: Nathaniel Andres M.D. CLIA Number [id number] Cap Accreditation N o. [id number] Lab Interpretation Abnormal (test code = 02906-2) [facility] W/AUTO DIFF WITH [id number] 09:25:20 Test Item Value Reference Range Interpretation Comments WHITE BLOOD CELL COUNT 4.3 See_Comment [Aut omated message] (test code = 41387-7) The sy stem which generated this result transmitted ref erence range: 3.5 - 11 .0 K/UL. The refer ence range was not u sed to interpret this result as normal/abnor mal. RED BLOOD CELL COUNT 4.65 See_Comment [Autom ated message] (test code = 96060-2) The sy stem which generated this result transmitted ref erence range: 4.50 - 6 .10 M/UL. The refer ence range was not u sed to interpret this result as normal/abnor mal. HEMOGLOBIN (test code = 12.7 See_Comment L [Au tomated message] 718-7) The system whic h generated this result transmitted ref erence range: 13.5 - 1 7.0 G/DL. The refer ence range was not u sed to interpret this result as normal/abnor mal. HEMATOCRIT (test code = 40.1 % 40.0-51.0 74250-8) MEAN CORPUSCULAR VOLUME 86.2 fL 80.0-99.0 (test code = 64675-7) MEAN CORPUSCULAR 27.3 PG 25.0-33.0 HEMOGLOBIN (test code = 09764-4) MEAN CORPUSCULAR 31.7 See_Comment [Automated message] HEMOGLOBIN CONC (test The sy stem which code = 89150-1) generated th is result transmitted ref erence range: 31.0 - 3 6.0 G/DL. The refer ence range was not u sed to interpret this result as normal/abnor mal. RED CELL DISTRIBUTION 16.0 % 11.5-15.0 H WIDTH (test code = 34758-9) NEUTROPHILS % (test code 54.9 % = 81287-9) LYMPHOCYTES % (test code 33.9 % = 23166-9) MONOCYTES % (test code = 8.6 % 26983-4) EOSINOPHILS % (test code 1.9 % = 76976-6) BASOPHILS % (test code = 0.7 % 84975-0) IMMATURE GRANULOCYTES 0.0 % (test code = 36941-0) NUCLEATED RBC'S 0.00 See_Comment Unless Othe rwise MYELOPEROX STAIN (test Indic ated, All code = 64886-4) Testing Perf ormed At: [facility], [address] [facility], [place] [address] Laborator y Director: Alva SummersIA Number [id number] Cap Accreditation [place] o. [id number] [Autom ated message] The sy stem which generated this result transmit claudio reference range : 0.00 - 0.11 K/UL. Th e reference range was not used to int erpret this result as normal/abnormal . PLATELET COUNT (test 283 See_Comment [Autom ated message] code = 49169-1) The system w hich generated this result transmitted ref erence range: 130 - 40 0 K/UL. The refer ence range was not u sed to interpret this result as normal/abnor mal. NEUTROPHILS ABSOLUTE 2.35 See_Comment [Autom ated message] COUNT (test code = The syste m which 57387-4) generated this result transmitted ref erence range: 1.50 - 7 .50 K/UL. The refer ence range was not u sed to interpret this result as normal/abnor mal. LYMPHOCYTES ABSOLUTE 1.45 See_Comment [Autom ated message] COUNT (test code = The syste m which 87077-1) generated this result transmitted ref erence range: 1.00 - 4 .00 K/UL. The refer ence range was not u sed to interpret this result as normal/abnor mal. MONOCYTES ABSOLUTE COUNT 0.37 See_Comment [A utomated message] (test code = 24344-1) The sy stem which generated this result transmitted ref erence range: 0.20 - 1 .00 K/UL. The refer ence range was not u sed to interpret this result as normal/abnor mal. BASOPHILS ABSOLUTE COUNT 0.03 See_Comment [A utomated message] (test code = 44652-7) The sy stem which generated this result [...] mal. Lab Interpretation (test Abnormal code = 85240-6) [facility] + [id number] 01:08:50 Test Item Value Reference Range Interpretation Comments Result (test code = No fungus isolated in 6463-4) 28 days Fungus Smear (test No fungi seen code = 1406) [facility] + [id number] 01:08:50 Test Item Value Reference Range Interpretation Comments Result (test code = No fungus isolated in 6463-4) 28 days Fungus Smear (test No fungi seen code = 1406) [facility] C[facility] + [id number] 01:08:50 Test Item Value Reference Range Interpretation Comments CULTURE (BEAKER) (test No fungus isolated in code = 1095) 28 days FUNGUS SMEAR (BEAKER) No fungi seen (test code = 1406) POC-Glucose [id number] 16:31:24 Test Item Value Reference Range Interpretation Comments POC-Glucose Meter (test 135 mg/dL 70-110 H : TE STED AT [facility] code = 1538) [address] [place] [address]: Collection Supervisor/Techni carroll ID = [id number] for Micheal, [place] Lab Interpretation (test Abnormal code = 45282-6) [facility] Farm[facility]-Glucose [id number] 16:31:24 Test Item Value Reference Range Interpretation Comments POC-Glucose Meter (test 135 mg/dL 70-110 H : TE STED AT [facility] code = 1538) [address] [place] 786608: Collection Supervisor/Techni carroll ID = [id number] for Micheal, [place] Lab Interpretation (test Abnormal code = 20380-6) [facility] Farm[facility]-GLUCOSE [id number] 16:31:24 Test Item Value Reference Range Interpretation Comments POC-GLUCOSE METER 135 mg/dL 70-110 H : TESTED A T [facility] 1317 (BEAKER) (test code [facility], = 1538) [place] 624948: Collection Supervisor/Techni carroll ID = [id number] for [place] o, [place] POCT-GLUCOSE [id number] 11:38:52 Test Item Value Reference Range Interpretation Comments POC-GLUCOSE METER 114 mg/dL 70-110 H : TESTED A T [facility] [address] (BEAKER) (test code [address], = 1538) [facility] 77 478: Collection Supervisor/Techni carroll ID = [id number] for Wanda [employer] CULTURE + SMEAR (NON-SPUTUM)2022-05-02 09:42:02 Test Item Value Reference Range Interpretation Comments CULTURE (BEAKER) (test No acid-fast bacilli code = 1095) isolated in 42 days AFB SMEAR (BEAKER) No acid fast bacilli (test code = 994) seen [id number] 06:45:33 Test Item Value Reference Range Interpretation Comments MAGNESIUM (BEAKER) (test code = 1.9 mg/dL 1.5-3.0 627) Collection Supervisor ID - [id number] ID - [id number] ID - [id number] ID - [id number] BASIC METABOLIC [id number] 06:43:32 Test Item Value Reference Range Interpretation [...] is not appl icable for dialysis patien jewel Collection Supervisor ID - [id number] ID - [id number] ID - WOCE79Xhjcnmdf ID - ROHX07Anujdciw ID - BBWN31Hlmdsdsr ID - PJLH55Bwexyxua ID - HSUR31Lvkzjwit ID - CTQE29Vnmhjyjj ID - [id number] 06:42:11 Test Item Value Reference Range Interpretation Comments PHOSPHORUS (BEAKER) (test code = 4.2 mg/dL 2.5-4.5 604) Collection Supervisor ID - [id number] [id number] 06:38:51 Test Item Value Reference Range Interpretation Comments POC-GLUCOSE METER 89 mg/dL 70-110 : TESTED A T [facility] [address] (BEAKER) (test code = [address], 1538) [facility] [place] 77 [address]: Collection Supervisor/Techni carroll ID = [id number] for Radha Cavazos CBC W/PLT COUNT & AUTO [id number] 06:01:42 Test Item Value Reference Range Interpretation [...] PERCENT (BEAKER) (test code = 2801) POCT-GLUCOSE [id number] 23:24:47 Test Item Value Reference Range Interpretation Comments POC-GLUCOSE METER 97 mg/dL 70-110 : TESTED A T [facility] [address] (BEAKER) (test code = [facility] [facility] 1538) [place] [address]: Collection Supervisor/Techni carroll ID = [id number] for Radha Cavazos POCT-GLUCOSE [id number] 16:55:17 Test Item Value Reference Range Interpretation Comments POC-GLUCOSE METER 112 mg/dL 70-110 H : TESTED A T [facility] [address] (BEAKER) (test code [address], = 1538) [place] [address]: Collection Supervisor/Techni carroll ID = [id number] for Wanda Rosales POCT-GLUCOSE [id number] 11:46:41 Test Item Value Reference Range Interpretation Comments POC-GLUCOSE METER 123 mg/dL 70-110 H : TESTED A T [facility] [address] (BEAKER) (test code [address], = 1538) [facility] 77 478: Collection Supervisor/Techni carroll ID = [id number] for Wanda Rosales POCT-GLUCOSE [id number] 06:44:46 Test Item Value Reference Range Interpretation Comments POC-GLUCOSE METER 122 mg/dL 70-110 H : Notified RN/MD: TESTED (BEAKER) (test code AT [facility] [address] = [address]) [address], [facility] [place] [address]: Collection Supervisor/Techni carroll ID = [id number] for Kathie Bravo BASIC METABOLIC [id number] 04:00:34 Test Item Value Reference Range Interpretation [...] not appl icable for dialysis patien ts Collection Supervisor ID - [id number] ID - QATEWENXE537Etrtnjqx ID - PWGUTHICI964Xyoxbarc ID - DVZKHFBCI756Vkxvsuai ID - IHIHLFGPJ338Vuqyefkt ID - IPLXKBZLG160Ejknmetq ID - GSBFEYTTV654Xxuwgdqg ID - FEMOQHLNN091Ssxdsbop ID - EZOBSOYPW821Zeqdwfiq ID - [id number] 03:35:09 Test Item Value Reference Range Interpretation Comments MAGNESIUM (BEAKER) (test code = 1.5 mg/dL 1.5-3.0 627) Collection Supervisor ID - [id number] ID - [id number] ID - [id number] ID - [id number] 03:32:46 Test Item Value Reference Range Interpretation Comments PHOSPHORUS (BEAKER) (test code = 4.3 mg/dL 2.5-4.5 604) Collection Supervisor ID - [id number] W/PLT COUNT & AUTO [id number] 03:13:41 Test Item Value Reference Range Interpretation [...] PERCENT (BEAKER) (test code = 2801) POCT-GLUCOSE [id number] 00:19:47 Test Item Value Reference Range Interpretation Comments POC-GLUCOSE METER 116 mg/dL 70-110 H : Notified RN/MD: TESTED (BEAKER) (test code AT [facility] [address] = 1538) [facility] [address]: Collection Supervisor/Techni carroll ID = [id number] for Kathie Bravo POCT-GLUCOSE [id number] 17:57:14 Test Item Value Reference Range Interpretation Comments POC-GLUCOSE METER 105 mg/dL 70-110 : TESTED A T [facility] 1317 [facility] (test code [facility], = 1538) [facility] 77 478: Collection Supervisor/Techni carroll ID = [id number] for Sarah Bazan RAD, CHEST, 1 VIEW, NON [id number] 14:50:00Reason for exam:->pneumonia and pleural effusion follow upShould this be performed at the bedside?->Yes [facility] : 1985 Sex: MFINAL REPORT [...] MDReport Verified Date/Time: 04/30/2022 14:50:00 Reading Location: [facility] Radiology Reading Room BLOOD [id number] 07:01:57 Test Item Value Reference Range Interpretation Comments CULTURE (BEAKER) (test No growth in 5 days code = 1095) BLOOD [id number] 07:01:57 Test Item Value Reference Range Interpretation Comments CULTURE (BEAKER) (test No growth in 5 days code = 1095) BASIC METABOLIC [id number] 04:25:08 Test Item Value Reference Range Interpretation [...] not appl icable for dialysis patien ts Collection Supervisor ID - LITOOperator ID - LITOOperator ID - LITOOperator ID - LITOOperator ID - LITOOperator ID - LITOOperator ID - LITOOperator ID - LITOOperator ID - LITOOperator ID - [id number] 04:21:01 Test Item Value Reference Range Interpretation Comments MAGNESIUM (BEAKER) (test code = 2.0 mg/dL 1.5-3.0 627) Collection Supervisor ID - LITOOperator ID - LITOOperator ID - LITOOperator ID - LEYDI [id number] 04:18:30 Test Item Value Reference Range Interpretation Comments PHOSPHORUS (BEAKER) (test code = 3.5 mg/dL 2.5-4.5 604) Collection Supervisor ID - LITOCBC W/PLT COUNT & AUTO [id number] 04:01:48 Test Item Value Reference Range Interpretation [...] PERCENT (BEAKER) (test code = 2801) MRSA [id number] 08:59:02 Test Item Value Reference Range Interpretation Comments Result (test code = 6463-4) No [facility] [id number] 08:59:02 Test Item Value Reference Range Interpretation Comments Result (test code = 6463-4) No [facility] [id number] 08:59:02 Test Item Value Reference Range Interpretation Comments CULTURE (BEAKER) (test code No MRSA isolated = 1095) POCT-GLUCOSE [id number] 07:24:51 Test Item Value Reference Range Interpretation Comments POC-GLUCOSE METER 87 mg/dL 70-110 : TESTED A T SLSL 1317 (BEAKER) (test code = [address], [address]) [facility] [place] [address]: Collection Supervisor/Techni carroll ID = [id number] for Marlyn May BASIC METABOLIC [id number] 06:38:30 Test Item Value Reference Range Interpretation [...] not appl icable for dialysis patien ts Collection Supervisor ID - [id number] ID - [id number] ID - XMRXHUJHQ725Jvycktav ID - KCGMLLUOG277Eujjnlcr ID - WLSSIENNX368Azocywqe ID - XRUDKATJE344Qewensum ID - UZCBJEWPI797Mxwvcfec ID - MVWPGCXFV022Lqbtaoph ID - OGRQASNVH104Qnfvdqaq ID - [id number]6 06:36:35 Test Item Value Reference Range Interpretation Comments MAGNESIUM (BEAKER) (test code = 1.5 mg/dL 1.5-3.0 627) Collection Supervisor ID - [id number] ID - [id number] ID - [id number] ID - [id number] 06:34:06 Test Item Value Reference Range Interpretation Comments PHOSPHORUS (BEAKER) (test code = 3.2 mg/dL 2.5-4.5 604) Collection Supervisor ID - [id number] W/PLT COUNT & AUTO [id number] 06:14:33 Test Item Value Reference Range Interpretation [...] H PERCENT (BEAKER) (test code = 2801) [id number] 06:52:19 Test Item Value Reference Range Interpretation Comments MAGNESIUM (BEAKER) (test code = 1.7 mg/dL 1.5-3.0 627) Collection Supervisor ID - [id number] ID - [id number] ID - LGWS52Vmrbuepi ID - [id number] BASIC METABOLIC [id number] 06:51:00 Test Item Value Reference Range Interpretation [...] not as accur ate as Creatinine Papi snador in predicting glom erular filtration rate . Estimated GFR is not appl icable for dialysis patien ts Collection Supervisor ID - [id number] ID - AMSQ53Ujiqdors ID - YQJG99Nhsmtzub ID - HFQI53Lqgwxjxm ID - CAST98Wxnpfkjn ID - USCQ37Pzknggkr ID - WEWQ13Vbivsvnl ID - SQRN03Mbsfigav ID - [id number] W/PLT COUNT & AUTO [id number] 06:24:51 Test Item Value Reference Range Interpretation [...] FL, ESOPH, SWALLOW FUNCTION, WITH CINE OR [id number] 14:35:00Reason for exam:->Suspect aspiration [facility] 1985 Sex: MFINAL REPORT EXAMINATION: Modified barium swallow study INDICATION: Suspect aspiration COMPARISON: None. TECHNIQUE: The examination was performed in conjunction with speech pathology. Varying consistencies of barium was administered under lateral fluoroscopic observation. Fluoro Time:69.1 secImages: 51 IMPRESSION:Please refer to speech pathologist's note from same date for further description. Signed: Irma Arechiga MDReport Verified Date/Time: 04/27/2022 14:35:47 Reading Location:[facility] Radiology Reading Room [id number] 05:19:15 Test Item Value Reference Range Interpretation Comments MAGNESIUM (BEAKER) (test code = 1.8 mg/dL 1.5-3.0 627) Collection Supervisor ID - LITOOperator ID - LITOOperator ID - LITOOperator ID - LITOBASIC METABOLIC [id number] 05:17:57 Test Item Value Reference Range Interpretation [...] not appl icable for dialysis patien ts Collection Supervisor ID - LITOOperator ID - LITOOperator ID - LITOOperator ID - LITOOperator ID - LITOOperator ID - LITOOperator ID - LITOOperator ID - LITOOperator ID - LITOCBC W/PLT COUNT & AUTO [id number] 05:08:26 Test Item Value Reference Range Interpretation [...] (test code = 2801) CT, CHEST, WITH [id number] 16:03:00Unlisted Reason for Exam - Click Yes and Enter Reason Below->No [facility] 1985 Sex: MFINAL REPORT [...] of previously seen right pneumothorax. Signed: Irma Arechigaeport Verified Date/Time: 04/26/2022 16:03:02 Reading Location: [facility] Radiology Reading Room VANCOMYCIN LEVEL, [id number] 12:34:15 Test Item Value Reference Range Interpretation Comments VANCOMYCIN TROUGH (BEAKER) (test 28.9 ug/mL 10.0-20.0 H code = 522) Collection Supervisor ID - [id number] 05:37:30 Test Item Value Reference Range Interpretation Comments MAGNESIUM (BEAKER) (test code = 2.1 mg/dL 1.5-3.0 627) Collection Supervisor ID - [id number] ID - CTVL95Bwwfrqpp ID - ZVME20Jpuznvbl ID - ZNMP04 BASIC METABOLIC [id number] 05:36:06 Test Item Value Reference Range Interpretation [...] not appl icable for dialysis patien ts Collection Supervisor ID - [id number] ID - [id number] ID - MNVS03Dkujzuqu ID - QMBD68Hbyetakm ID - SCUG73Tydlqpvh ID - JEQJ82Etlkrqjt ID - ZKSR70Blqjibwh ID - HEAD69Idlrpznl ID - [id number] W/PLT COUNT & AUTO [id number] 05:14:42 Test Item Value Reference Range Interpretation [...] (BEAKER) (test code = 2801) Strep pneumoniae [id number] 18:25:58 Test Item Value Reference Range Interpretation Comments Strep pneumoniae Presumptive negative Presumptive Antigen (test code = [place] [address]-7) pneumonia - see pneumococcal comment pneumonia - [...] test. Lab Interpretation Normal (test code = 63623-0) [facility] [id number] 18:25:58 Test Item Value Reference Range Interpretation Comments Strep pneumoniae Presumptive negative Presumptive Antigen (test code = [place] [address]-9) pneumonia - see pneumococcal comment pneumonia - [...] test. Lab Interpretation Normal (test code = 65634-9) [facility] PNE[facility] [id number] 18:25:58 Test Item Value Reference Range Interpretation [...] the test. RAD, CHEST, 1 VIEW, NON [id number] 10:07:00Reason for exam:- >PneumoniaShould this be performed at the bedside?->Yes [facility] : 1985 Sex: MFINAL REPORT [...] Slightly increased right pleuroparenchymal opacities. Signed: Derrick Hutton Verified Date/Time: 04/25/2022 10:07:18 Reading Location: [facility] Reading Room [id number] 06:13:06 Test Item Value Reference Range Interpretation Comments PROCALCITONIN (BEAKER) (test code = < ng/mL <0.05 3036) SEPSIS RISK (ng/mL)Low: 0.05-0.50Intermediate: 0.51-2.00High: >=2.01 PROTHROMBIN TIME/[id number] 05:59:42 Test Item Value Reference Range Interpretation Comments PROTIME (BEAKER) 11.4 seconds 9.3-12.0 Final Infor mation (test code = 759) (Auto Outp ut) INR (BEAKER) (test 1.04 See_Comment Final Inf ormation code = 370) (Auto Output) [Automated mess age] The system [employer] generated this result transmitted ref erence range: [...] not appl icable for dialysis patien ts Collection Supervisor ID - LITOOperator ID - LITOOperator ID - LITOOperator ID - LITOOperator ID - LITOOperator ID - LITOOperator ID - LITOOperator ID - LITOOperator ID - LITOOperator ID - LITOOperator ID - LITOOperator ID - LITOOperator ID - LITOOperator ID - LITOOperator ID - LITOOperator ID - [id number] 05:48:36 Test Item Value Reference Range Interpretation Comments MAGNESIUM (BEAKER) (test code = 1.6 mg/dL 1.5-3.0 627) Collection Supervisor ID - LITOOperator ID - LITOOperator ID - LITOOperator ID - LEYDI [id number] 05:45:32 Test Item Value Reference Range Interpretation Comments PHOSPHORUS (BEAKER) (test code = 3.6 mg/dL 2.5-4.5 604) Collection Supervisor ID - LITOCBC W/PLT COUNT & AUTO [id number] 05:15:57 Test Item Value Reference Range Interpretation [...] PERCENT (BEAKER) (test code = 2801) BLOOD [id number] 06:01:35 Test Item Value Reference Range Interpretation Comments CULTURE (BEAKER) (test No growth in 5 days code = 1095) BLOOD [id number] 06:01:35 Test Item Value Reference Range Interpretation Comments CULTURE (BEAKER) (test No growth in 5 days code = 1095) RAD, CHEST, 1 VIEW, NON [id number] 11:45:00Reason for exam:->loculated effusionShould this be performed at the bedside?->Yes [facility] 1985 Sex: MFINAL REPORT [...] effusion and resolution of pneumothorax. Signed: Derrick Huttonort Verified Date/Time: 04/19/2022 11:45:09 RAD, CHEST, 1 VIEW, NON [id number] 13:38:00Reason for exam:->loculated effusionShould this be performed at the bedside?->Yes [facility] : 1985 Sex: MFINAL REPORT [...] component compared prior exam. Signed: Hayden Rosales MDReport Verified Date/Time: 2022 13:38:48 Reading Location: [address] Reading Room MAGNESIUM 2022-04-18 06:44:07 Test Item Value Reference Range Interpretation Comments MAGNESIUM (BEAKER) (test code = 1.5 mg/dL 1.6-2.6 L 627) Collection Supervisor ID - BSBASIC METABOLIC [id number] 06:44:06 Test Item Value Reference Range Interpretation [...] not appl icable for dialysis patien ts Collection Supervisor ID - BSRAD, CHEST, 1 VIEW, NON [id number] 12:09:00Reason for exam:- >loculated effusionShould this be performed at the bedside?->Yes [facility] : 1985 Sex: MFINAL REPORT [...] MDReport Verified Date/Time: 04/17/2022 12:09:27 Reading Location: [address] Reading Room [id number] 07:02:46 Test Item Value Reference Range Interpretation Comments MAGNESIUM (BEAKER) (test code = 1.7 mg/dL 1.6-2.6 627) Collection Supervisor ID - MARCOBASIC METABOLIC [id number] 07:02:45 Test Item Value Reference Range Interpretation [...] not appl icable for dialysis patien ts Collection Supervisor ID - MARCOCBC (HEMOGRAM ONLY)2022-04-17 06:33:41 Test [...] = 413) RAD, CHEST, 1 VIEW, NON [id number] 14:15:00Reason for exam:->evaluate pneumothorax after clampShould this be performed at the bedside?->Yes [facility] : 1985 Sex: MFINAL REPORT RAD, CHEST, 1 VIEW, NON DEPT INDICATION: evaluate pneumothorax after clamp COMPARISON: 04/16/2022 TECHNIQUE: Portable frontal view of the chest. FINDINGS: Support Lines andDevices: Stable. Lungs and pleura: Unchanged airspace and pleural opacities. Small right lateral pneumothorax. Heart and mediastinum: Stable contours. Stable surgical changes. Additional findings: Moderate leftward convexity of the thoracolumbar spine. IMPRESSION: Small right-sided pneumothorax, similar to prior exam. Right chest tube remains in place. Signed: Hayden Rosales MDReport Verified Date/Time: 04/16/2022 14:15:07 Reading Location: [address] Reading Room RAD, CHEST, 1 VIEW, NON DEPT 2022-04-16 09:50:00Reason for exam:->loculated effusionShould this be performed at the bedside?->Yes [facility] : 1985 Sex: MFINAL REPORT Chest one view. Clinical history: loculated effusion Comparison: 04/15/2022 Discussion: A frontal chest is provided. Cardiomediastinal contours are unchanged. Right chest tube is in stable position. Patchy interstitial and airspace opacities in both lungs appear grossly unchanged. There is a small loculated right pneumothorax laterally, without interval change. Low lung volume. No large effusion. Signed: Lore Neal Verified Date/Time: 04/16/2022 09:50:51 Reading Location: [address] Ortho Consult Reading Room [id number] 06:20:13 Test Item Value Reference Range Interpretation Comments MAGNESIUM (BEAKER) (test code = 1.5 mg/dL 1.6-2.6 L 627) Collection Supervisor ID - MARCOBASIC METABOLIC [id number] 06:20:12 Test Item Value Reference Range Interpretation [...] (test code = 697) EGFR (BEAKER) 132 Interpretati on of eGFR (test code = [...] not appl icable for dialysis patien ts Collection Supervisor ID - KAMRANOBLOOD [id number] 21:00:55 Test Item Value Reference Range Interpretation Comments CULTURE (BEAKER) (test No growth in 5 days code = 1095) The specimen volume collected for this blood culture was below the optimum (10 mL per bottle or 20 mL total). Use of lower volumes may adversely affect recovery and/or detection times of some organisms.BLOOD [id number] 21:00:54 Test Item Value Reference Range Interpretation [...] Reason for Exam->F/u on loculated pleural effusion [facility] 1985 Sex: [...] right lower lobe consolidation. Signed: Riley Nur MDReport Verified Date/Time: 04/15/2022 14:35:45 RAD, CHEST, 1 VIEW, NON [id number] 09:18:00Reason for exam:->loculated effusionShould this be performed at the bedside?->[facility] : 1985 Sex: MFINAL REPORT Exam: RAD, CHEST, 1 VIEW, NON DEPTDate: 04/15/2022 9:17 AM Indication:loculated effusionComparison: Chest radiograph from yesterday. IMPRESSION: Lines/Tubes:Right chest tube. Lungs and Pleura :Significantly decreased right pleural effusion. Hazy opacities are seen in both lower lung zones. Left midlung atelectasis. Heart/Mediastinum:Partially obscured, unchanged. Bones/Soft Tissues: No acute osseous abnormality. Upper abdomen: Unremarkable. Signed: Vinod Salgado [facility] Verified Date/Time: 04/15/2022 09:18:22 OMYCIN LEVEL, [id number] 08:03:39 Test Item Value Reference Range Interpretation Comments VANCOMYCIN TROUGH (BEAKER) (test 3.9 ug/mL 10.0-20.0 L code = 522) Collection Supervisor ID - MARCOLACTIC ACID, [id number] 05:37:12 Test Item Value Reference Range Interpretation Comments LACTATE BLOOD VENOUS (2) (BEAKER) 0.97 mmol/L 0.50-2.20 (test code = 2872) Collection Supervisor ID - [id number] 04:24:09 Test Item Value Reference Range Interpretation Comments MAGNESIUM (BEAKER) (test code = 1.6 mg/dL 1.6-2.6 627) Collection Supervisor ID - MARCOBASIC METABOLIC [id number] 04:24:08 Test Item Value Reference Range Interpretation [...] not appl icable for dialysis patien ts Collection Supervisor ID - MARCOCBC (HEMOGRAM ONLY)2022-04-15 04:09:08 Test [...] (BEAKER) (test code = 413) pH, body [id number] 03:04:07 Test Item Value Reference Range Interpretation Comments pH, Body Fluid 7.9 (test code = 2748-2) PH FLUID TYPE Body fluid Reference (test code = range:Reference 52730-0) ranges have not been established on thistype of flu id for this test. CHRISTINA (test code Performing Lab *PETE = CHRISTINA) [facility] [address] [facility] [address] [place] Tuyet Waldrop MD, PhD [facility] FarmpH, body [id number] 03:04:07 Test Item Value Reference Range Interpretation Comments pH, Body Fluid 7.9 (test code = 2748-2) PH FLUID TYPE Body fluid Reference (test code = range:Reference 51746-6) ranges have not been established on thistype of flu id for this test. CHRISTINA (test code Performing Lab *PETE = CHRISTINA) [facility]/[place] [address] [facility] [address] [place], [place] Tuyet Waldrop MD, PhD [facility] FarmBody fluid culture + gram [id number] 15:14:21 Test Item Value Reference Range Interpretation Comments Result (test code = 6463-4) No growth CHRISTINA (test code = CHRISTINA) [facility] Farm[facility] fluid culture + gram [id number] 15:14:21 Test Item Value Reference Range Interpretation Comments Result (test code = 6463-4) No growth CHRISTINA (test code = CHRISTINA) [facility] FarmBODY FLUID CULTURE + GRAM [id number] 15:14:21 Test Item Value Reference Range Interpretation Comments CULTURE (BEAKER) (test code = 1095) No growth RAD, CHEST, 1 VIEW, NON [id number] 12:25:00Reason for exam:->Loculated EffusionShould this be performed at the bedside?->Yes [facility] 1985 Sex: MFINAL REPORT Chest, one view HISTORY: Loculated effusion Comparison: 04/13/2022 Findings: Lungs: Stable bibasilar airspace disease, right greater than left. Heart: Normal in size. Pleura: Residual loculated right pleural effusion, without gross interval change. No pneumothorax is apparent. Bones: Unremarkable. Lines/tubes: Unchanged right chest tube. Signed: Riley Nur MDReport [place] ified Date/Time: 04/14/2022 12:25:14 [id number] 06:56:04 Test Item Value Reference Range Interpretation Comments MAGNESIUM (BEAKER) (test code = 1.6 mg/dL 1.6-2.6 627) Collection Supervisor ID - PIAYA LBASIC METABOLIC [id number] 06:56:03 Test Item Value Reference Range Interpretation [...] mg/dL 8.4-10.2 (test code = 697) EGFR (DORIS) 128 Interpretatio n of eGFR (test code [...] not appl icable for dialysis patien ts Collection Supervisor ID - PIAYA ELROYAD, CHEST, 1 VIEW, NON [id number] 16:52:00Reason for exam:->loculated effusionShould this be performed at the bedside?->Yes [facility] : 1985 Sex: MFINAL REPORT Chest, 1 view. History: Loculated effusion. Comparison: 04/11/2022. Impression: Right-sided chest tube identified in stable position. Unchanged small right hydropneumothoraxnoted. There are stable appearing interstitial opacities present bilaterally with a lower lung zone predominance. The cardiomediastinal silhouette is stable in appearance. No acute osseous abnormality is identified. Signed: Jarett Arreolaeport Verified Date/Time: 04/13/2022 16:52:34 Reading Location: [facility] Diagnostic Imaging Reading Room - [facility] 1.310.12 LACTATE DEHYDROGENASE (LDH)2022-04-13 15:47:53 Test Item Value Reference Range Interpretation Comments LACTATE DEHYDROGENASE (BEAKER) (test 183 U/L 125-220 code = 635) Collection Supervisor ID - HGMRSA [id number] 11:20:49 Test Item Value Reference Range Interpretation Comments CULTURE (BEAKER) (test code No MRSA isolated = 1095) TSH/FREE T4 IF [id number] 05:45:52 Test Item Value Reference Range Interpretation Comments THYROID STIMULATING HORMONE 0.461 uIU/mL 0.350-4.940 (BEAKER) (test code = 772) Collection Supervisor ID - AKIXTUCQHJJBYJ5793-63-41 05:27:01 Test Item Value Reference Range Interpretation Comments MAGNESIUM (BEAKER) (test code = 1.8 mg/dL 1.6-2.6 627) Collection Supervisor ID - ADMINBASIC METABOLIC [id number] 05:27:00 Test Item Value Reference Range Interpretation [...] not appl icable for dialysis patien ts Collection Supervisor ID - ADMINCBC (HEMOGRAM ONLY)2022-04-13 04:51:59 Test [...] (test code = 413) HIGH SENSITIVITY TROPONIN [id number] 20:48:38 Test Item Value Reference Range Interpretation Comments HIGH SENSITIVITY < pg/ml See_Comment [Automated message] TROPONIN I (test code = The system which 1087509) generated this result transmitted ref erence range: <=35. Th e reference range was not used to interpr et this result as normal/abnormal . Collection Supervisor ID - BSThe SUPERVISOR MAJOR APPLIANCE ASSEMBLY STAT High Sensitivity Troponin-I results should be used in conjunctionwith other diagnostic information such as ECG, clinical observations and information, and patient symptoms to aid in the diagnosis of NM.RAD, ABDOMEN/KUB, 1 VIEW [id number] 09:50:00Reason for exam:->Abdominal distension[facility] : 1985 Sex: MFINAL REPORT RAD, ABDOMEN/KUB, 1 VIEW AP CLINICAL INDICATION: Abdominal distension COMPARISON: None TECHNIQUE: Single, frontal radiograph of the abdomen. FINDINGS: The bowel gas pattern is nonspecific, but nonobstructive. Evaluation for free air is limited by portable supine technique. Within these limitations, no free air is identified. Signed: Justin Cramer MDReport Verified Date/Time: 04/12/2022 09:50:16 Reading Location: [address] Reading Room BASIC METABOLIC [id number] 06:44:34 Test Item Value Reference Range Interpretation [...] not appl icable for dialysis patien ts Collection Supervisor ID - [id number] 06:44:34 Test Item Value Reference Range Interpretation Comments MAGNESIUM (BEAKER) (test code = 1.9 mg/dL 1.6-2.6 627) Collection Supervisor ID - KAMRANOVANCOMYCIN LEVEL, [id number] 06:35:29 Test Item Value Reference Range Interpretation Comments VANCOMYCIN TROUGH (BEAKER) (test 24.0 ug/mL 10.0-20.0 H code = 522) Collection Supervisor ID - KAMRANOCT, CHEST, WITHOUT [id number] 16:06:00Evaluation for complex pleural effusion and pockets. S/p chest tube insertion in the setting of pneumonia and effusionUnlisted Reason for Exam - Click Yes and Enter Reason Below->[facility] : 1985 Sex: MFINAL REPORT [...] lower lobe suggestive infectious process. Signed: Velvet Leal MDReport Verified Date/Time: 04/11/2022 16:06:10 Lactate dehydrogenase (LDH), body fluid 2022-04-11 15:56:15 Test Item Value Reference Range Interpretation Comments LDH, Fluid (test 240 U/L code = 11830-8) CHRISTINA (test code = Absence of reference CHRISTINA) range indicates that normals have not been defined.Assay performance has not been validated for this type of specimen. Collection Supervisor ID - [id number] [facility] FarmLactate dehydrogenase (LDH), body [id number] 15:56:15 Test Item Value Reference Range Interpretation Comments LDH, Fluid (test 240 U/L code = 43238-4) CHRISTINA (test code = Absence of reference CHRISTINA) range indicates that normals have not been defined.Assay performance has not been validated for this type of specimen. Collection Supervisor ID - [id number] [facility] FarmLACTATE DEHYDROGENASE (LDH), BODY [id number] 15:56:15 Test Item Value Reference Range Interpretation Comments LACTATE DEHYDROGENASE FLUID (BEAKER) 240 U/L (test code = 634) Absence of reference range indicates that normals have not been defined.Assay performance has not been validated for this type of specimen.Collection Supervisor ID - [id number], body [id number] 15:52:29 Test Item Value Reference Range Interpretation Comments Glucose, Body Fluid 76 mg/dL (test code = 2344-0) CHRISTINA (test code = Absence of reference CHRISTINA) range indicates that normals have not been defined.Assay performance has not been validated for this type of specimen. Collection Supervisor ID - [id number] [facility] FarmGlucose, body [id number] 15:52:29 Test Item Value Reference Range Interpretation Comments Glucose, Body Fluid 76 mg/dL (test code = 2344-0) CHRISTINA (test code = Absence of reference CHRISTINA) range indicates that normals have not been defined.Assay performance has not been validated for this type of specimen. Collection Supervisor ID - [id number] [facility] FarmGLUCOSE, BODY [id number] 15:52:29 Test Item Value Reference Range Interpretation Comments GLUCOSE, BODY FLUID (BEAKER) (test 76 mg/dL code = 1528) Absence of reference range indicates that normals have not been defined.Assay performance has not been validated for this type of specimen.Collection Supervisor ID - [id number] fluid cell count with [id number] 13:33:07 Test Item Value Reference Range Interpretation Comments Appearance (test code = Hazy Clear A 9335-1) Color (test code = Yellow Colorless, Straw A 6824-7) RBCs (test code = 6000 See_Comment H [Automate d message] 02926-4) The system [employer] h generated this result transmit claudio reference range : <=1 /cu mm. The reference range was not used to interpret this result as normal/abnormal . Adjusted WBC Count 62 See_Comment H [Automat ed message] (test code = 21038-0) The sy stem which generated this result transmit claudio reference range : <=5 /cu mm. The reference range was not used to interpret this result as normal/abnormal . Adjusted lining 0 See_Comment [Automated message] cells/Others (test code The system which = 15211-2) generated this result transmit claudio reference range : <=1 /cu mm. The reference range was not used to interpret this result as normal/abnormal . % Segs (test code = 9 % 57669-8) % Lymphs (test code = 63 % 82627-5) % Monos (test code = 23 % 34987-3) % Eos (test code = 3 % 48469-5) % Baso (test code = 2 % 24598-4) Container Body Fluid EDTA Tube (test code = 2873) Lab Interpretation Abnormal (test code = 35698-1) [facility] cell count with [id number] 13:33:07 Test Item Value Reference Range Interpretation Comments Appearance (test code = Hazy Clear A 9335-1) Color (test code = Yellow Colorless, Straw A 6824-7) RBCs (test code = 6000 See_Comment H [Automate d message] 75395-2) The system [employer] generated this result transmit claudio reference range : <=1 /cu mm. The reference range was not used to interpret this result as normal/abnormal . Adjusted WBC Count 62 See_Comment H [Automat ed message] (test code = 23381-6) The sy stem which generated this result transmit claudio reference range : <=5 /cu mm. The reference range was not used to interpret this result as normal/abnormal . Adjusted lining 0 See_Comment [Automated message] cells/Others (test code The system which = 62840-6) generated this result transmit claudio reference range : <=1 /cu mm. The reference range was not used to interpret this result as normal/abnormal . % Segs (test code = 9 % 47429-2) % Lymphs (test code = 63 % 98246-2) % Monos (test code = 23 % 22970-9) % Eos (test code = 3 % 51401-3) % Baso (test code = 2 % 71901-9) Container Body Fluid EDTA Tube (test code = 2873) Lab Interpretation Abnormal (test code = 62268-7) [facility] FLUID CE[facility] COUNT WITH [id number] 13:33:07 Test Item Value Reference Range Interpretation [...] (BEAKER) (test code = 2873) COMPREHENSIVE METABOLIC [id number] 12:56:04 Test Item Value Reference Range Interpretation Comments GLUCOSE (test code = See_Comment [Autom ated message] 2345-7) The system [employer] generated this result transmitted ref erence range: 70 - 99 MG/DL. The reference r subhash was not used to interpret this result as normal/abnor mal. BLOOD UREA NITROGEN See_Comment [Automa claudio message] (test code = 3091-6) The sys tem which generated this result transmitted ref erence range: 6 - 20 M G/DL. The reference r subhash was not used to interpret this result as normal/abnor mal. CREATININE (test code = See_Comment L [Au tomated message] 2160-0) The system [employer] generated this result transmitted ref erence range: 0.80 - 1 .40 MG/DL. The refe rence range was not u sed to interpret this result as normal/abnor mal. EGFR (test code = See_Comment [Automate d message] 36316-4) The system [employer] generated this result transmitted ref erence range: >60 ML/MIN/1.73. Th e reference range was not used to int erpret this result as normal/abnormal . BUN/CREAT RATIO (test See_Comment [Auto mated message] code = 3097-3) The system [facility] generated this result transmitted ref erence range: 6 - 28 R ATIO. The reference r subhash was not used to interpret this result as normal/abnor mal. SODIUM (test code = See_Comment [Automa claudio message] 2951-2) The system [facility] generated this result transmitted ref erence range: 133 - 14 6 MEQ/L. The refe rence range was not u sed to interpret this result as normal/abnor mal. POTASSIUM (test code = See_Comment [Aut omated message] 2823-3) The system [facility] generated this result transmitted ref erence range: 3.5 - 5. 4 MEQ/L. The refe rence range was not u sed to interpret this result as normal/abnor mal. CHLORIDE (test code = See_Comment [Auto mated message] 7865-0) The system [facility] generated this result transmitted ref erence range: 95 - 107 MEQ/L. The reference r subhash was not used to interpret this result as normal/abnor mal. CO2 (test code = See_Comment [Automated message] 1963-8) The system [facility] generated this result transmitted ref erence range: 19 - 31 MEQ/L. The reference r subhash was not used to interpret this result as normal/abnor mal. CALCIUM (test code = See_Comment [Autom ated message] 29468-4) The system [facility] generated this result transmitted ref erence range: 8.5 - 10 .5 MG/DL. The refe rence range was not u sed to interpret this result as normal/abnor mal. PROTEIN TOTAL (test See_Comment [Automa claudio message] code = 2885-2) The system [facility] generated this result transmitted ref erence range: 6.1 - 8. 3 G/DL. The reference r subhash was not used to interpret this result as normal/abnor mal. ALBUMIN (test code = See_Comment [Autom ated message] 41044-7) The system [facility] generated this result transmitted ref erence range: 3.5 - 5. 2 G/DL. The reference r subhash was not used to interpret this result as normal/abnor mal. GLOBULINS, SERUM, TOTAL See_Comment H [Au tomated message] (test code = 06883-4) The sy stem which generated this result transmitted ref erence range: 1.9 - 3. 7 G/DL. The reference r subhash was not used to interpret this result as normal/abnor mal. A/G RATIO (test code = See_Comment L [Aut omated message] 1759-0) The system [facility] generated this result transmitted ref erence range: 1.0 - 2. 6 RATIO. The refe rence range was not u sed to interpret this result as normal/abnor mal. BILIRUBIN TOTAL (test <0.2 See_Comment [Auto mated message] code = 1975-2) The system [facility] generated this result transmitted ref erence range: <=1.2 MG /DL. The reference r subhash was not used to interpret this result as normal/abnor mal. ALKALINE PHOSPHATASE 148 U/L 40-117 H (test code = 6768-6) AST (SGOT) (test code = 19 U/L 9-50 1920-8) ALT (SGPT) (test code = 26 U/L 5-50 Unl ess Otherwise 1744-2) Indicated, All Testing Performed At: [facility], [address] [place] [address] Laborator y Director: Nathaniel Andres M.D. [facility] Number [id number] [place] o. [id number] Lab Interpretation Abnormal (test code = 52823-1) [facility]%[id number] 12:56:04 Test Item Value Reference Range Interpretation Comments IRON (test code = See_Comment L [Automate d message] 0948-4) The system [facility] generated this result transmitted ref erence range: 59 - 158 UG/DL. The reference r subhash was not used to interpret this result as normal/abnor mal. UIBC (test code = See_Comment [Automate d message] 0641-5) The system [facility] generated this result transmitted ref erence range: 112 - 34 7 UG/DL. The refe rence range was not u sed to interpret this result as normal/abnor mal. TIBC (test code = See_Comment L [Automate d message] 81539-4) The system [employer] generated this result transmitted ref erence range: 250 - 45 0 UG/DL. The refe rence range was not u sed to interpret this result as normal/abnor mal. IRON SATURATION % (test 7 % 20-50 L Unl ess Otherwise code = 2502-3) Indicated, Al l Testing Performed At: [facility], [address] [place] [address] Laborator y Director: Alva Summers Number [id number] [place]. [address]-09 Lab Interpretation Abnormal (test code = 62492-3) [facility] 25 [id number] 12:50:49 Test Item Value Reference Range Interpretation Comments VITAMIN D 25-HYDROXY SEE BELOW NG/ML NOT E: 25-HYDROXYVITAMIN D (test code = 1989-3) ASSAY I NCLUDES 25-HYDROXYVITAM IN D2 AND D3. METHODOLOGY IS CHEMILUMINESCEN T IMMUNOASSAY. $$ $$$ INTERPRETIVE RA NGES $$$$$PEDIATRIC (<17 YEARS) . . . . . . . . . . . NG/ML 20-100ADULT: IN SUFFICIENT . . . . . . . . . . . . . . NG/ML <20 SUBO PTIMAL . . . . . . . . . . . . . . . NG/ML 20-29 OPT IMAL . . . . . . . . . . . . . . . . . NG/ML 30-100 Un less Otherwise Indic ated, All Testing Perform ed At: [facility], [address] [place] [address] Accountant Systems: Alva Summers Numbe r [id number] [place] [address]-02 [facility], 1 VIEW, NON [id number] 11:23:00Reason for exam:->Post Chest Tube placementShould this be performed at the bedside?->YesWOO [facility] : 1985 Sex: MFINAL REPORT RAD, CHEST, 1 VIEW, NON DEPT INDICATION: Post Chest Tube placement COMPARISON: Prior day's exam FINDINGS: Portable frontal view of the chest. IMPRESSION: Support Lines: Right chest tube Lungs and pleura: Bilateral airspace opacities, unchanged. Small right apical pneumothorax. Heart and mediastinum: Stable contours. Stable surgical changes. Additional findings: None. Signed: Justin Cramer Verified Date/Time: 04/11/2022 11:23:04 Reading Location: [address] Reading Room LACTATE DEHYDROGENASE (LDH) 2022-04-11 11:08:29 Test Item Value Reference Range Interpretation Comments LACTATE DEHYDROGENASE (BEAKER) (test 316 U/L 125-220 H code = 635) Collection Supervisor ID - POLLY GPROTEIN, [id number] 11:08:28 Test Item Value Reference Range Interpretation Comments TOTAL PROTEIN (BEAKER) (test code = 7.4 gm/dL 6.0-8.3 770) Collection Supervisor ID - POLLY GCBC W/AUTO DIFF WITH [id number] 09:27:48 Test Item Value Reference Range Interpretation Comments WHITE BLOOD CELL COUNT See_Comment [Aut omated message] (test code = 95197-2) The sy stem which generated this result transmitted ref erence range: 3.5 - 11 .0 K/UL. The refer ence range was not u sed to interpret this result as normal/abnor mal. RED BLOOD CELL COUNT See_Comment L [Autom ated message] (test code = 49611-3) The sy stem which generated this result transmitted ref erence range: 4.50 - 6 .10 M/UL. The refer ence range was not u sed to interpret this result as normal/abnor mal. HEMOGLOBIN (test code = See_Comment L [Au tomated message] 718-7) The system whic h generated this result transmitted ref erence range: 13.5 - 1 7.0 G/DL. The refer ence range was not u sed to interpret this result as normal/abnor mal. HEMATOCRIT (test code = 36.6 % 40.0-51.0 L 42256-5) MEAN CORPUSCULAR VOLUME 84.7 fL 80.0-99.0 (test code = 30706-6) MEAN CORPUSCULAR 27.5 PG 25.0-33.0 HEMOGLOBIN (test code = 62954-5) MEAN CORPUSCULAR See_Comment [Automated message] HEMOGLOBIN CONC (test The sy stem which code = 19109-8) generated th is result transmitted ref erence range: 31.0 - 3 6.0 G/DL. The refer ence range was not u sed to interpret this result as normal/abnor mal. RED CELL DISTRIBUTION 12.8 % 11.5-15.0 WIDTH (test code = 72951-7) NEUTROPHILS % (test code 65.8 % = 20318-0) LYMPHOCYTES % (test code 21.3 % = 75709-5) MONOCYTES % (test code = 9.0 % 61769-9) EOSINOPHILS % (test code 2.9 % = 14636-2) BASOPHILS % (test code = 0.5 % 41592-8) IMMATURE GRANULOCYTES 0.5 % (test code = 66734-5) NUCLEATED RBC'S See_Comment Unless Othe rwise MYELOPEROX STAIN (test Indic ated, All code = 46786-0) Testing Perf ormed At: [facility], [address] [facility] [place] [address] Laborator y Director: Alva SummersIA Number [id number] [place] o. [id number] [Autom ated message] The sy stem which generated this result transmit claudio reference range : 0.00 - 0.11 K/UL. Th e reference range was not used to int erpret this result as normal/abnormal . PLATELET COUNT (test See_Comment H [Autom ated message] code = 87285-5) The system w hich generated this result transmitted ref erence range: 130 - 40 0 K/UL. The refer ence range was not u sed to interpret this result as normal/abnor mal. NEUTROPHILS ABSOLUTE See_Comment [Autom ated message] COUNT (test code = The syste m which 89334-5) generated this result transmitted ref erence range: 1.50 - 7 .50 K/UL. The refer ence range was not u sed to interpret this result as normal/abnor mal. LYMPHOCYTES ABSOLUTE See_Comment [Autom ated message] COUNT (test code = The syste m which 94212-3) generated this result transmitted ref erence range: 1.00 - 4 .00 K/UL. The refer ence range was not u sed to interpret this result as normal/abnor mal. MONOCYTES ABSOLUTE COUNT See_Comment [A utomated message] (test code = 57094-1) The sy stem which generated this result transmitted ref erence range: 0.20 - 1 .00 K/UL. The refer ence range was not u sed to interpret this result as normal/abnor mal. BASOPHILS ABSOLUTE COUNT See_Comment [A utomated message] (test code = 74483-6) The sy stem which generated this result [...] mal. Lab Interpretation (test Abnormal code = 65019-9) [facility] HospitalNxyedrfyOUGKCDSMDVYAT1623-93-14 06:43:31 Test Item Value Reference Range Interpretation Comments PROCALCITONIN (BEAKER) (test code = < ng/mL <0.05 3036) SEPSIS RISK (ng/mL)Low: 0.05-0.50Intermediate: 0.51-2.00High: >=2.01 [id number] 06:33:40 Test Item Value Reference Range Interpretation Comments PHOSPHORUS (BEAKER) (test code = 3.7 mg/dL 2.3-4.7 604) Collection Supervisor ID - POLLY GBASIC METABOLIC [id number] 06:33:39 Test Item Value Reference Range Interpretation [...] not appl icable for dialysis patien ts Collection Supervisor ID - POLLY [id number] 06:33:39 Test Item Value Reference Range Interpretation Comments MAGNESIUM (BEAKER) (test code = 1.9 mg/dL 1.6-2.6 627) Collection Supervisor ID - POLLY GCBC W/PLT COUNT & AUTO [id number] 05:58:29 Test Item Value Reference Range Interpretation [...] SARS-Co V-2 (test code = target nucleic 27969-7) acids are not detected in [facility] s specimen. Negat jeison results do not [...] (test code = [place] 94687-5) not detected in this specimen. Influenza B RT-PCR Negative Negative The Flu B target (test code = [place] 78868-5) not detected in this specimen. RSV by RT-PCR (test Negative Negative The RSV target code = 81915-7) nucleic acid s are not detected in [...] SARS-CoV-2/Flu/RSV by their healthcare provider. Results from [facility] Xpert Xpress SARS-CoV-2/Flu/RSV test should be [...] of the Act. Fact Sheet for Healthcare Providers:https://w DailyPath/Docu ments/Xpert%20Xpres s%20SARS%20CoV-2/Fa ct%20Sheets/302-390 2%58QEPD-RKJ-6%20HE ALTHCARE%20PROVIDER S%20FACT%20SHEET.pd f Fact Sheet for Healthcare Patients:https://[employer]/Docum ents/Xpert%20Xpress %20SARS%20Cov-2/Fac t%20Sheets/302-3801 %49ZZNR-XAN-9%20PAT IENT%20FACT%20SHEET .pdf Lab Interpretation Normal (test code = 33332-6) [facility]Symptomatic ONLY) 2022-04-10 22:55:37 Test Item Value Reference Interpretation Comments Range SARS-COV2/RT-PCR Negative Negative The SARS-Co V-2 (test code = target nucleic 21336-7) acids are not detected in thi s specimen. Negat jesion results do not preclude SARS-C oV-2 infection [...] of COVID-19 by the ir healthcare provider. Influenza A RT-PCR Negative Negative The Flu A target (test code = [place] [address]-2) not detected in this specimen. Influenza B RT-PCR Negative Negative The Flu B target (test code = [place] 71401-1) not detected in this specimen. RSV by RT-PCR (test Negative Negative The RSV target code = 13570-7) nucleic acid s are not detected in [...] of the Act. Fact Sheet for Healthcare Providers:https://w ww.[employer].IMshopping/Docu ments/Xpert%20Xpres s%20SARS%20CoV-2/Fa ct%20Sheets/302-390 2%59BFDA-DKM-6%20HE ALTHCARE%20PROVIDER S%20FACT%20SHEET.pd f Fact Sheet for Healthcare Patients:https://ww w.[employer]/Docum ents/Xpert%20Xpress %20SARS%20Cov-2/Fac t%20Sheets/302-3801 %75CMDC-FRP-3%20PAT IENT%20FACT%20SHEET .pdf Lab Interpretation Normal (test code = 69108-3) [facility]ZA/RSV [id number] 22:55:37 Test Item Value Reference Range Interpretation Comments SARS-COV2/RT-PCR Negative Negative The SARS-Co V-2 target (test code = nucleic acids a re not 6592022) detected in thi s specimen. Negat jeisno results do not preclude SARS-CoV-2 infe ction [...] individuals adan pected of COVID-19 by the [facility] ide. INFLUENZA A RT-PCR Negative Negative The Flu A target nucleic (test code = acids are not d etected in 6157445) this specimen. INFLUENZA B RT-PCR Negative Negative The Flu B target nucleic (test code = acids are not d etected in 5995009) this specimen. RSV RT-PCR (test Negative Negative The RSV tar get nucleic code = 3860946) acids are no t detected in this [...] of the Act.Fact Sheet for Healthcare Providers:https ://www.[employer]/Documents/Xpert%20Xpress%20SARS%20CoV-2/Fact%20Sheets/302-390 2%37GMNA-AFJ-7%20HEALTHCARE%20PROVIDERS%20FACT%20SHEET.pdfFact Sheet for Healthcare Patients:https://www.[employer]/Docum ents/Xpert%20Xpress%20SARS%20Cov-2/Fact%20Sheets/302-3801%19MHVK-YFZ-9%20PATIENT %20FACT%20SHEET.pdfBLOOD GAS, [id number] 22:44:14 Test Item Value Reference Range Interpretation [...] (test code = 1819) 21.0 COMPREHENSIVE METABOLIC [id number] 20:48:26 Test Item Value Reference Range Interpretation [...] not appl icable for dialysis patien ts Collection Supervisor ID - [id number] 20:43:04 Test Item Value Reference Range Interpretation Comments PARTIAL THROMBOPLASTIN TIME 34.0 seconds 22.5-36.0 (BEAKER) (test code = 760) PROTHROMBIN TIME/[id number] 20:42:27 Test Item Value Reference Range Interpretation Comments PROTIME (BEAKER) 14.5 seconds 11.9-14.2 H (test code = 759) INR (BEAKER) (test 1.20 See_Comment [Automat ed message] code = 370) The system [employer] generated this result transmitted ref erence range: <=5.90. The reference range was not used to int erpret this result as normal/abnormal . RECOMMENDED COUMADIN/WARFARIN INR THERAPY RANGESSTANDARD DOSE: 2.0 - 3.0 Includes: PROPHYLAXIS for venous thrombosis, systemic embolization; TREATMENT for venous thrombosis and/or pulmonary embolus.HIGH RISK: Target INR is 2.5-3.5 for patients with mechanical heart valves.LACTIC ACID, [id number] 20:32:43 Test Item Value Reference Range Interpretation Comments LACTATE BLOOD VENOUS 0.87 mmol/L 0.50-2.20 Specime n slightly (2) (BEAKER) (test hemolyzed code = 2872) Collection Supervisor ID - BSCBC W/PLT COUNT & AUTO [id number] 20:30:40 Test Item Value Reference Range Interpretation [...] = 2801) RAD, CHEST, 1 VIEW, NON [id number] 19:41:00Reason for exam:->SHORTNESS OF BREATHfluid on (R) lungShould this be performed at the bedside?->Yes [facility] 1985 Sex: MFINAL REPORT [...] pneumothorax. There is thoracolumbar levoscoliosis. Signed: Kriss Monteort Verified Date/Time: 04/10/2022 19:41:55 POCT-GLUCOSE [id number] 12:20:59 Test Item Value Reference Range Interpretation Comments POC-GLUCOSE METER 122 mg/dL 70-110 H : TESTED A T [facility] ([employer] (test code = [facility], 153) 810[address]: Collection Supervisor/Techni carroll ID = [id number] for Ch Sherry macarioylynn POCT-GLUCOSE [id number] 06:01:16 Test Item Value Reference Range Interpretation Comments POC-GLUCOSE METER 119 mg/dL 70-110 H : TESTED A T [facility] [address] ([employer] (test code = [facility], 1538) 96076: Collection Supervisor/Techni carroll ID = [id number] for Ng Areli pacheco [id number] 04:36:36 Test Item Value Reference Range Interpretation Comments MAGNESIUM (BEAKER) (test code = 1.9 mg/dL 1.6-2.6 627) Collection Supervisor ID - PIAYA [id number] 04:36:36 Test Item Value Reference Range Interpretation Comments PHOSPHORUS (BEAKER) (test code = 4.1 mg/dL 2.3-4.7 604) Collection Supervisor ID Aubrey [place] LBASIC METABOLIC [id number] 04:36:35 Test Item Value Reference Range Interpretation [...] eGF R is based on the CKD-EPI 1 equation that d oes not use a race coefficientEsti mated GFR is not as accur ate as Creatinine Papi sandor in predicting glom erular filtration rate . Estimated GFR is not appl icable for dialysis patien ts Collection Supervisor ID - MALOU LCBC W/PLT COUNT & AUTO [id number] 04:07:53 Test Item Value Reference Range Interpretation [...] PERCENT (BEAKER) (test code = 2801) POCT-GLUCOSE [id number] 00:41:24 Test Item Value Reference Range Interpretation Comments POC-GLUCOSE METER 111 mg/dL 70-110 H : TESTED Lora Cohen [facility] 67[address] (BEAKER) (test code = [facility] [place], 1538) 12217: Collection Supervisor/Techni carroll ID = [id number] for Areli Woo POCT-GLUCOSE [id number] 17:39:40 Test Item Value Reference Range Interpretation Comments POC-GLUCOSE METER 111 mg/dL 70-110 H : TESTED A T [facility] 67[address] (BEAKER) (test code = [facility], 1538) 00847: Collection Supervisor/Techni carroll ID = [id number] for Nicole Grimaldo POCT-GLUCOSE [id number] 12:35:56 Test Item Value Reference Range Interpretation Comments POC-GLUCOSE METER 129 mg/dL 70-110 H : TESTED A T [facility] 67[address] (BEAKER) (test code = [facility], 1538) 44850: Collection Supervisor/Techni carroll ID = [id number] for Nicole Grimaldo Legionella [id number] 09:46:47 Test Item Value Reference Range Interpretation Comments Result (test code = No Legionella species 6463-4) isolated CHRISTINA (test code = CHRISTINA) [facility] FarmLeonella gdiekuw9586-82-55 09:46:47 Test Item Value Reference Range Interpretation Comments Result (test code = No Legionella species 6463-4) isolated CHRISTINA (test code = CHRISTINA) [facility] FarmLEONELLA [id number] 09:46:47 Test Item Value Reference Range Interpretation Comments CULTURE (BEAKER) No Legionella species (test code = 1095) isolated BASIC METABOLIC [id number] 05:03:10 Test Item Value Reference Range Interpretation [...] not appl icable for dialysis patien ts Collection Supervisor ID - MALOU [id number] 05:03:10 Test Item Value Reference Range Interpretation Comments MAGNESIUM (BEAKER) (test code = 2.0 mg/dL 1.6-2.6 627) Collection Supervisor ID - MALOU [id number] 05:03:10 Test Item Value Reference Range Interpretation Comments PHOSPHORUS (BEAKER) (test code = 4.3 mg/dL 2.3-4.7 604) Collection Supervisor ID - MALOU LCBC W/PLT COUNT & AUTO [id number] 05:02:12 Test Item Value Reference Range Interpretation [...] PERCENT (BEAKER) (test code = 2801) POCT-GLUCOSE [id number] 00:54:52 Test Item Value Reference Range Interpretation Comments POC-GLUCOSE METER 116 mg/dL 70-110 H : TESTED A T [facility] 6720 (BEAKER) (test code = [facility], 153) 52726: Collection Supervisor/Techni carroll ID = [id number] for Ng tara, Areli POCT-GLUCOSE [id number] 18:02:27 Test Item Value Reference Range Interpretation Comments POC-GLUCOSE METER 129 mg/dL 70-110 H : TESTED A T [facility] 67[address] (BEAKER) (test code = [facility], 153) 46438: Collection Supervisor/Techni carroll ID = [id number] for SA NTOS, KHADAR FL, ESOPH, SWALLOW FUNCTION, WITH CINE OR [id number] 13:41:00Reason for exam:->aspiration eval [facility] : 1985 Sex: MFINAL REPORT [...] Neal Verified Date/Time: 03/29/2022 13:41:34 Reading Location: [address] Consult Reading Room POCT-GLUCOSE [id number] 13:21:05 Test Item Value Reference Range Interpretation Comments POC-GLUCOSE METER 132 mg/dL 70-110 H : TESTED A T [facility] [address] ([employer] (test code = [facility], 1538) 81984: Collection Supervisor/Techni carroll ID = [id number] for NG TARA, [place] POCT-GLUCOSE [id number] 12:30:50 Test Item Value Reference Range Interpretation Comments POC-GLUCOSE METER 133 mg/dL 70-110 H : TESTED A T [facility] [address] ([employer] (test code [facility], = 1538) 75368: Collection Supervisor/Techni carroll ID = [id number] for LATT RANDY - PAULETTE SMOOTH Virus culture Expected virus: [id number] 12:19:59 Test Item Value Reference Range Interpretation Comments Result (test code = 6463-4) See comment CHRISTINA (test code = CHRISTINA) See scan report Lab Interpretation (test code Normal = 23375-5) [facility] [employer] culture Expected virus: [id number] 12:19:59 Test Item Value Reference Range Interpretation Comments Result (test code = 6463-4) See comment CHRISTINA (test code = CHRISTINA) See scan report Lab Interpretation (test code Normal = 12983-5) [facility] Farm[facility] W/PLT COUNT & AUTO [id number] 11:47:21 Test Item Value Reference Range Interpretation [...] = 2801) RAD, CHEST, 1 VIEW, NON [id number] 11:12:00Reason for exam:->intuabted, pneumothorax ,s/p CTShould this be performed at the bedside?->Yes [facility] 1985 Sex: MFINAL REPORT [...] MDReport Verified Date/Time: 03/29/2022 11:12:57 BASIC METABOLIC [id number] 06:27:54 Test Item Value Reference Range Interpretation [...] not appl icable for dialysis patien ts Collection Supervisor ID - [id number] 06:27:53 Test Item Value Reference Range Interpretation Comments MAGNESIUM (BEAKER) 1.9 mg/dL 1.6-2.6 Specimen slightly (test code = 627) hemolyzed Collection Supervisor ID - [id number] 06:27:53 Test Item Value Reference Range Interpretation Comments PHOSPHORUS (BEAKER) 3.8 mg/dL 2.3-4.7 Specimen slightly (test code = 604) hemolyzed Collection Supervisor ID - BSFUNGUS CULTURE + [id number] 02:44:21 Test Item Value Reference Range Interpretation Comments CULTURE (BEAKER) A <1+ Danielle albicans (test code = 1095) FUNGUS SMEAR No fungi seen (BEAKER) (test code = 1406) RAD, CHEST, 1 VIEW, NON [id number] 10:38:00Reason for exam:->intuabted, pneumothorax ,s/p CTShould this be performed at the bedside?->Yes [facility] : 1985 Sex: MFINAL REPORT RAD, CHEST, 1 VIEW, NON DEPT INDICATION: intubated, pneumothorax ,s/p CT COMPARISON: Prior day's exam FINDINGS: Portable frontal view of the chest. IMPRESSION: Support Lines: ET tube removed. Stable enteric tube. Lungs and pleura: Small right pleural effusion has increased. Diffuse right lung pulmonary opacities are stable. Small left apical pneumothorax versus bullous change is stableHeart and mediastinum: Stable contours. Additional findings: None. Signed: Alfredo La MDReport Verified Date/Time: 03/28/2022 10:38:31 CBC W/PLT COUNT & AUTO [id number] 05:38:33 Test Item Value Reference Range Interpretation [...] 0.00-1.00 PERCENT (BEAKER) (test code = 2801) [id number] 05:05:56 Test Item Value Reference Range Interpretation Comments PHOSPHORUS (BEAKER) (test code = 3.9 mg/dL 2.3-4.7 604) Collection Supervisor ID - POLLY GBASIC METABOLIC [id number] 05:05:55 Test Item Value Reference Range Interpretation [...] not appl icable for dialysis patien ts Collection Supervisor ID - POLLY [id number] 05:05:55 Test Item Value Reference Range Interpretation Comments MAGNESIUM (BEAKER) (test code = 1.9 mg/dL 1.6-2.6 627) Collection Supervisor ID - POLLY GBLOOD [id number] 22:00:51 Test Item Value Reference Range Interpretation Comments CULTURE (BEAKER) (test No growth in 5 days code = 1095) BLOOD [id number] 21:01:11 Test Item Value Reference Range Interpretation Comments CULTURE (BEAKER) (test No growth in 5 days code = 1095) RAD, CHEST, 1 VIEW, NON [id number] 13:26:00Reason for exam:->intuabted, pneumothorax ,s/p CTShould this be performed at the bedside?->Yes [facility] 1985 Sex: MFINAL REPORT [...] None. Signed: Alfredo La MDReport Verified Date/Time: 03/27/2022 13:26:22 PHERAL BLOOD SMEAR - PATHOLOGIST [id number] 09:46:14 Test Item Value Reference Range Interpretation Comments PERIPHERAL SMR REVIEW Cell counts confirmed. (BEAKER) (test code = 2640) [id number] Sammie Arzate M.D. (BEAKER) (test code = (electronic signature) 2849) BASIC METABOLIC [id number] 05:52:04 Test Item Value Reference Range Interpretation [...] not appl icable for dialysis patien ts Collection Supervisor ID - [id number] 05:52:04 Test Item Value Reference Range Interpretation Comments MAGNESIUM (BEAKER) (test code = 1.9 mg/dL 1.6-2.6 627) Collection Supervisor ID - [id number] 05:52:04 Test Item Value Reference Range Interpretation Comments PHOSPHORUS (BEAKER) (test code = 3.4 mg/dL 2.3-4.7 604) Collection Supervisor ID - ADMINB-TYPE NATRIURETIC FACTOR (BNP)2022-03-27 05:06:58 Test Item Value Reference Range Interpretation Comments B-TYPE NATRIURETIC PEPTIDE (BEAKER) < pg/mL 0-100 (test code = 700) Collection Supervisor ID - MALOU LCBC W/PLT COUNT & AUTO [id number] 04:46:52 Test Item Value Reference Range Interpretation [...] PERCENT (BEAKER) (test code = 2801) POCT-GLUCOSE [id number] 17:59:56 Test Item Value Reference Range Interpretation Comments POC-GLUCOSE METER 122 mg/dL 70-110 H : TESTED Lora Cohen [facility] 6720 (BEAKER) (test code = [place], 1538) [address]: Collection Supervisor/Techni carroll ID = [id number] for Mirna Lam POCT-GLUCOSE [id number] 11:41:56 Test Item Value Reference Range Interpretation Comments POC-GLUCOSE METER 135 mg/dL 70-110 H : TESTED Lora Cohen [facility] 67August (DORIS) (test code = [place], 1538) [address]: Collection Supervisor/Techni carroll ID = [id number] for Mirna Lam RAD, CHEST, 1 VIEW, NON [id number] 10:00:00Reason for exam:->intuabted, pneumothorax ,s/p CTShould this be performed at the bedside?->Yes [facility] : 1985 Sex: MFINAL REPORT [...] 03/26/2022 10:00:02 Mycoplasma pneumoniae DNA, Qualitative, Real-Time [id number] 09:57:01See scanned report.[facility] FarmMycoplasma pneumoniae DNA, Qualitative, Real-Time [id number] 09:57:01See scanned report.[facility] FarmMAGNESIUM2022-12-19 06:46:49 Test Item Value Reference Range Interpretation Comments MAGNESIUM (BEAKER) (test code = 2.0 mg/dL 1.6-2.6 627) Collection Supervisor ID - MALOU [id number] 06:46:49 Test Item Value Reference Range Interpretation Comments PHOSPHORUS (BEAKER) (test code = 4.5 mg/dL 2.3-4.7 604) Collection Supervisor ID - MALOU LBASIC METABOLIC [id number] 06:46:48 Test Item Value Reference Range Interpretation [...] not appl icable for dialysis patien ts Collection Supervisor ID - PIAYA LPOCT-GLUCOSE [id number] 05:55:36 Test Item Value Reference Range Interpretation Comments POC-GLUCOSE METER 124 mg/dL 70-110 H : Notified RN/MD: (DORIS) (test code = TESTED AT [facility] 0534 2967) [place], [address]: Collection Supervisor/Techni carroll ID = [id number] for Ez Carola mejia CBC W/PLT COUNT & AUTO [id number] 05:54:36 Test Item Value Reference Range Interpretation [...] 0.00-1.00 PERCENT (BEAKER) (test code = 2801) [id number] 17:03:01 Test Item Value Reference Range Interpretation Comments MAGNESIUM (BEAKER) 2.1 mg/dL 1.6-2.6 Specimen moderately (test code = 627) hemolyzed Collection Supervisor ID - D [id number] 17:03:01 Test Item Value Reference Range Interpretation Comments PHOSPHORUS (BEAKER) 4.8 mg/dL 2.3-4.7 H Specimen moderately (test code = 604) hemolyzed Collection Supervisor ID - D WALKERBASIC METABOLIC [id number] 17:03:01 Test Item Value Reference Range Interpretation [...] not appl icable for dialysis patien ts Collection Supervisor ID - D MARISA, ABDOMEN/KUB, 1 VIEW [id number] 12:56:00Reason for exam:->s/p NGT placement, verify tip locationShould this be performed at the bedside?->Yes[facility] : 1985 Sex: MFINAL REPORT [...] Broussard MDReport Verified Date/Time: 03/25/2022 12:56:13 POCT-GLUCOSE [id number] 11:38:14 Test Item Value Reference Range Interpretation Comments POC-GLUCOSE METER 117 mg/dL 70-110 H : TESTED A T [facility] 6720 (BEAKER) (test code = [place], 1538) [address]: Collection Supervisor/Techni carroll ID = [id number] for WOOD DUNAWAY Sputum Culture + Gram [id number] 11:10:15 Test Item Value Reference Range Interpretation Comments Result (test code = See comment 6463-4) Gram Stain Result No organisms seen (test code = 1123) CHRISTINA (test code = 2+ YeastNo Normal CHRISTINA) respiratory stacy present [facility] Gram [id number] 11:10:15 Test Item Value Reference Range Interpretation Comments Result (test code = See comment 6463-4) Gram Stain Result No organisms seen (test code = 1123) CHRISTINA (test code = 2+ YeastNo Normal CHRISTINA) respiratory stacy present [facility] + GRAM [id number] 11:10:15 Test Item Value Reference Range Interpretation Comments CULTURE (BEAKER) See comment (test code = 1095) GRAM STAIN RESULT 2+ White blood cells (BEAKER) (test code = seen 1123) GRAM STAIN RESULT 0-5 epithelial cells (BEAKER) (test code = 633980) GRAM STAIN RESULT No organisms seen (BEAKER) (test code = 842195) 2+ YeastNo Normal respiratory stacy presentRAD, CHEST, 1 VIEW, NON DEPT 2022-03-25 08:08:00Reason for exam:->intuabted, pneumothorax ,s/p CTShould this be performed at the bedside?->Yes [facility] : 1985 Sex: MFINAL REPORT Chest, one view. HISTORY: intubated, pneumothorax ,s/p CT COMPARISON: Radiograph from yesterday IMPRESSION: Interval extubation. The feeding tube has been retracted and now overlies the upper thorax. There is a moderate size right pleural effusion with scattered bilateralatelectasis. The increased interstitial opacities in the lungs are unchanged. The cardiac silhouetteis unchanged in size. No acute bone abnormality. Signed: Trevon Broussard Verified Date/Time: 03/25/2022 08:08:17 POCT-GLUCOSE [id number] 07:12:46 Test Item Value Reference Range Interpretation Comments POC-GLUCOSE METER 117 mg/dL 70-110 H : TESTED A T [facility] 6720 (BEAKER) (test code = [place], 1538) [address]: Collection Supervisor/Techni carroll ID = [id number] for Dulce Maria Pimentel CBC W/PLT COUNT & AUTO [id number] 05:12:14 Test Item Value Reference Range Interpretation [...] (BEAKER) (test code = 2801) Blood gas, [id number] 04:55:10 Test Item Value Reference Range Interpretation Comments pH, Arterial (test code 7.46 7.35-7.45 H = 2744-1) pCO2, Arterial (test 46 See_Comment H [Autom ated message] code = 2019-8) The system [employer] generated this result transmit claudio reference range : 35 - 45 mm Hg. The reference range was not used to interpret this result as normal/abnormal . pO2, Arterial (test 152 See_Comment H [Automa claudio message] code = 2703-7) The system [employer] generated this result transmit claudio reference range [...] 35 Lab Interpretation Abnormal (test code = 58538-8) [facility] FarmBlood gas, [id number] 04:55:10 Test Item Value Reference Range Interpretation Comments pH, Arterial (test code 7.46 7.35-7.45 H = 2744-1) pCO2, Arterial (test 46 See_Comment H [Autom ated message] code = 2019-8) The system [employer] generated this result transmit claudio reference range : 35 - 45 mm Hg. The reference range was not used to interpret this result as normal/abnormal . pO2, Arterial (test 152 See_Comment H [Automa claudio message] code = 2703-7) The system [employer] generated this result transmit claudio reference range [...] 35 Lab Interpretation Abnormal (test code = 99875-6) [facility]BL[facility] GAS, [id number] 04:55:10 Test Item Value Reference Range Interpretation [...] FIO2 (BEAKER) (test code = 1819) 35.0 [id number] 04:44:58 Test Item Value Reference Range Interpretation Comments MAGNESIUM (BEAKER) (test code = 1.9 mg/dL 1.6-2.6 627) Collection Supervisor ID - MALOU DOEMKHCHJDLSET2329-90-02 04:44:58 Test Item Value Reference Range Interpretation Comments PHOSPHORUS (BEAKER) (test code = 4.7 mg/dL 2.3-4.7 604) Collection Supervisor ID - MALOU LBASIC METABOLIC [id number] 04:44:57 Test Item Value Reference Range Interpretation [...] not appl icable for dialysis patien ts Collection Supervisor ID - MALOU LPOCT-GLUCOSE [id number] 00:37:47 Test Item Value Reference Range Interpretation Comments POC-GLUCOSE METER 129 mg/dL 70-110 H : [facility] (BEAKER) (test code = [place], 1538) [address]: Collection Supervisor/Techni carroll ID = [id number] for Ce Lisseth godinez POCT-GLUCOSE [id number] 17:57:15 Test Item Value Reference Range Interpretation Comments POC-GLUCOSE METER 107 mg/dL 70-110 : TESTED A T [facility] 6720 (DORIS) (test code = [place], 1538) [address]: Collection Supervisor/Techni carroll ID = [id number] for Sa olivo (contract), Seema mobley Urine [id number] 14:59:08 Test Item Value Reference Range Interpretation Comments Result (test code = 6463-4) No growth [facility] [id number] 14:59:08 Test Item Value Reference Range Interpretation Comments Result (test code = 6463-4) No growth [facility]Asymptomatic ONLY)2022-03-24 13:45:36 Test Item Value Reference Interpretation Comments Range SARS-COV2/RT-PCR Negative Negative The SARS-Co V-2 (test code = target nucleic 92534-7) acids are not detected in thi s [...] om SARS-CoV-2 in a nasopharyngeal swab specimen [facility] from individual s suspected of COVID-19 by [...] revoked sooner. Fact Sheet for Healthcare Providers: https://www.[employer]/Documents/Xp ert%20Xpress%20SAR S%20CoV-2/Fact%20S heets/302-3802%20S ARS-COV-2%20HEALTH CARE%20PROVIDERS%2 0FACT%20SHEET.pdf Fact Sheet for Healthcare Patients: https://www.[employer]/Documents/Xp ert%20Xpress%20SAR S%20CoV-2/Fact%20S heets/302-3801%20S ARS-COV-2%20PATIEN T%20FACT%20SHEET.p df Lab Interpretation Normal (test code = 20907-8) [facility] (Asymptomatic ONLY)2022-03-24 13:45:36 Test Item Value Reference Interpretation Comments Range SARS-COV2/RT-PCR Negative Negative The SARS-Co V-2 (test code = target nucleic 02112-8) acids are not detected in thi s [...] revoked sooner. Fact Sheet for Healthcare Providers: https://www.[employer]/Documents/Xp ert%20Xpress%20SAR S%20CoV-2/Fact%20S heets/302-3802%20S ARS-COV-2%20HEALTH CARE%20PROVIDERS%2 0FACT%20SHEET.pdf Fact Sheet for Healthcare Patients: https://www.[employer]/Documents/Xp ert%20Xpress%20SAR S%20CoV-2/Fact%20S heets/302-3801%20S ARS-COV-2%20PATIEN T%20FACT%20SHEET.p df Lab Interpretation Normal (test code = 96854-2) [facility] ([facility])2022-03-24 13:45:36 Test Item Value Reference Range Interpretation Comments SARS-COV2/RT-PCR Negative Negative The SARS-Co V-2 target (test code = nucleic acids a re not 2036523) detected in thi s specimen. Negative result [...] revoked sooner. Fact Sheet for Healthcare Providers: https://www.[employer]/Documents/Xpert%20Xpress%20SARS%20CoV-2/Fact%20Sheets/302-3802%71HGTV-QWK-8%20 HEALTHCARE%20PROVIDERS%20FACT%20SHEET.pdf Fact Sheet for Healthcare Patients: https://www.[employer]/Documents/Xpert%20Xp ress%20SARS%20CoV-2/Fact%20Sheets/302-3801%24HJHM-QFQ-3%20PATIENT%20FACT%20SHEET .lcqEHPBXSZWCM6653-95-57 13:33:15 Test Item Value Reference Range Interpretation Comments PHOSPHORUS (BEAKER) (test code = 5.1 mg/dL 2.3-4.7 H 604) Collection Supervisor ID - MARCOBASIC METABOLIC [id number] 13:33:14 Test Item Value Reference Range Interpretation [...] not appl icable for dialysis patien ts Collection Supervisor ID - [id number] 13:33:14 Test Item Value Reference Range Interpretation Comments MAGNESIUM (BEAKER) (test code = 2.2 mg/dL 1.6-2.6 627) Collection Supervisor ID - MARCOChlamydia pneumoniae [id number] 09:49:14 Test Item Value Reference Interpretation Comments Range Source BAL (test code = ) C. NOT DETECTED REFERENCE RANGE : NOT DETECTED pneumoniae, This test was d eveloped and PCR (test its analytical code = performancechar acteristics 3935257) have been deter mined by [facility].It has not been cleared or appr abad by FDA. This assay hasb een validated pursuant to the CLIA regulations and isused for clinical purpos es. CHRISTINA (test Performing Lab code = CHRISTINA) *QDID [employer] [place] [address] [place] [address] Rochelle Love MD, PhD [facility] FarmChlamydia pneumoniae [id number] 09:49:14 Test Item Value Reference Interpretation Comments Range Source BAL (test code = 4888270) C. NOT DETECTED REFERENCE RANGE : NOT DETECTED pneumoniae, This test was d eveloped and PCR (test its analytical code = performancechar acteristics 7531384) have been deter mined by [facility].It has not been cleared or appr abad by FDA. This assay hasb een validated pursuant to the CLIA regulations and isused for clinical purpos es. CHRISTINA (test Performing Lab code = CHRISTINA) *QDID [employer] [address] [address] Rochelle Love MD, PhD [facility] FarmRAD, CHEST, 1 VIEW, NON [id number] 08:14:00Reason for exam:->intuabted, pneumothorax ,s/p CTShould this be performed at the bedside?->Yes[facility] : 1985 Sex: MFINAL REPORT [...] Arreola MDReport Verified Date/Time: 03/24/2022 08:14:54 POCT-GLUCOSE [id number] 06:49:38 Test Item Value Reference Range Interpretation Comments POC-GLUCOSE METER 116 mg/dL 70-110 H : TESTED A T [facility] 6720 (BEAKER) (test code = [facility], 1538) [address]: Collection Supervisor/Techni carroll ID = [id number] for Ce gretchen, Lisseth BLOOD GAS, [id number] 05:49:19 Test Item Value Reference Range Interpretation [...] (BEAKER) (test code = 1819) 50 CALCIUM, [id number] 05:15:38 Test Item Value Reference Range Interpretation Comments CALCIUM IONIZED (BEAKER) (test 1.08 mmol/L 1.12-1.27 L code = 698) PH, BLOOD (BEAKER) (test code = 7.52 1810) VITAMIN [id number] 04:54:47 Test Item Value Reference Range Interpretation Comments VITAMIN B12 (BEAKER) (test code = 968 pg/mL 213-816 H 774) Collection Supervisor ID - IZKPHATCRZDYV0672-89-89 04:54:47 Test Item Value Reference Range Interpretation Comments FERRITIN (BEAKER) (test code = 201.77 ng/mL 5.00-275.00 361) Collection Supervisor ID - MARCOCBC W/PLT COUNT & AUTO [id number] 04:51:30 Test Item Value Reference Range Interpretation [...] PERCENT (BEAKER) (test code = 2801) RETICULOCYTE [id number] 04:51:11 Test Item Value Reference Range Interpretation Comments RETICULOCYTE COUNT PCT (BEAKER) (test 4.7 % 0.5-1.8 H code = 575) Collection Supervisor ID - [id number] 04:27:21 Test Item Value Reference Range Interpretation Comments MAGNESIUM (BEAKER) (test code = 2.2 mg/dL 1.6-2.6 627) Collection Supervisor ID - JHQXSLXNGTJFWSF8659-22-46 04:27:21 Test Item Value Reference Range Interpretation Comments PHOSPHORUS (BEAKER) (test code = 4.1 mg/dL 2.3-4.7 604) Collection Supervisor ID - MARCOBASIC METABOLIC [id number] 04:27:20 Test Item Value Reference Range Interpretation [...] (test code = 697) EGFR (BEAKER) 123 Interpretati on of eGFR (test code = [...] not appl icable for dialysis patien ts Collection Supervisor ID - CHRISTINA, TIBC, % SAT. (WITHOUT FERRITIN)2022-03-24 04:26:53 Test Item Value Reference Range Interpretation Comments IRON (BEAKER) (test code = 547) 36.0 ug/dL 40.0-160.0 L TOTAL IRON BINDING CAPACITY 261 ug/dL 250-450 (BEAKER) (test code = 769) IRON % SATURATION (2) (BEAKER) 14 % 20-55 L (test code = 2590) Collection Supervisor ID - MARCOPOCT-GLUCOSE [id number] 00:30:20 Test Item Value Reference Range Interpretation Comments POC-GLUCOSE METER 121 mg/dL 70-110 H : TESTED A T [facility] 6720 (BEAKER) (test code = [facility] [employer] [facility], 1538) [address]: Collection Supervisor/Techni carroll ID = [id number] for Ce gretchen Lisseth POCT-GLUCOSE [id number] 18:06:57 Test Item Value Reference Range Interpretation Comments POC-GLUCOSE METER 123 mg/dL 70-110 H : TESTED A T [facility] 6720 (BEAKER) (test code = [facility], 1538) [address]: Collection Supervisor/Techni carroll ID = [id number] for Po Mirna albrecht [id number] 17:36:23 Test Item Value Reference Range Interpretation Comments MAGNESIUM (BEAKER) (test code = 1.9 mg/dL 1.6-2.6 627) Collection Supervisor ID - CRUMWYHVHFAL0862-72-58 17:36:23 Test Item Value Reference Range Interpretation Comments PHOSPHORUS (BEAKER) (test code = 4.1 mg/dL 2.3-4.7 604) Collection Supervisor ID - BSBASIC METABOLIC [id number] 17:36:22 Test Item Value Reference Range Interpretation [...] (test code = 697) EGFR (BEAKER) 122 Interpretati on of eGFR (test code = [...] not appl icable for dialysis patien ts Collection Supervisor ID - BSPOCT-GLUCOSE [id number] 11:53:19 Test Item Value Reference Range Interpretation Comments POC-GLUCOSE METER 123 mg/dL 70-110 H : [facility] (BEAKER) (test code = [place], 1538) [address]: Collection Supervisor/Techni carroll ID = [id number] for Po ss, Mirna RAD, CHEST, 1 VIEW, NON [id number] 11:29:00Reason for exam:->ett tube placementShould this be performed at the bedside?->Yes [facility] 1985 Sex: MFINAL REPORT [...] Signed: Justin Cramer MDReport Verified Date/Time: 03/23/2022 11:29:27 Reading Location: [address] Reading Room aspergillus [id number] 10:30:40 Test Item Value Reference Range Interpretation Comments Scan Result (test code = See Scan Report [id number]) CHRISTINA (test code = CHRISTINA) See Scan Report [facility] Farmaspergillus [id number] 10:30:40 Test Item Value Reference Range Interpretation Comments Scan Result (test code = See Scan Report [id number]) CHRISTINA (test code = CHRISTINA) See Scan Report [facility] FarmRAD, CHEST, 1 VIEW, NON [id number] 09:40:00Reason for exam:->intuabted, pneumothorax ,s/p CTShould this be performed at the bedside?->Yes[facility] : 1985 Sex: MFINAL REPORT [...] MDReport Verified Date/Time: 03/23/2022 09:40:52 Reading Location: [address] Reading Room POCT-GLUCOSE [id number] 07:10:33 Test Item Value Reference Range Interpretation Comments POC-GLUCOSE METER 125 mg/dL 70-110 H : TESTED A T [facility] 6720 (BEAKER) (test code = [facility] [facility], 1538) [address]: Collection Supervisor/Techni carroll ID = [id number] for Tr Michell whitten BLOOD [id number] 06:00:42 Test Item Value Reference Range Interpretation Comments CULTURE (BEAKER) (test No growth in 5 days code = 1095) [id number] 04:11:45 Test Item Value Reference Range Interpretation Comments PHOSPHORUS (BEAKER) (test code = 3.9 mg/dL 2.3-4.7 604) Collection Supervisor ID - MARCOHEPATIC FUNCTION [id number] 04:11:45 Test Item Value Reference Range Interpretation [...] code = 63 U/L 6-55 H 347) Collection Supervisor ID - [id number] 04:11:44 Test Item Value Reference Range Interpretation Comments MAGNESIUM (BEAKER) (test code = 2.3 mg/dL 1.6-2.6 627) Collection Supervisor ID - MARCOBASIC METABOLIC [id number] 04:11:43 Test Item Value Reference Range Interpretation [...] not appl icable for dialysis patien ts Collection Supervisor ID - MARCOCBC W/PLT COUNT & AUTO [id number] 03:39:11 Test Item Value Reference Range Interpretation [...] (BEAKER) (test code = 2801) BLOOD GAS, [id number] 03:23:32 Test Item Value Reference Range Interpretation [...] (BEAKER) (test code = 1819) 45.0 CALCIUM, [id number] 03:23:31 Test Item Value Reference Range Interpretation Comments CALCIUM IONIZED (BEAKER) (test 1.09 mmol/L 1.12-1.27 L code = 698) PH, BLOOD (BEAKER) (test code = 7.51 1810) POCT-GLUCOSE [id number] 00:28:04 Test Item Value Reference Range Interpretation Comments POC-GLUCOSE METER 130 mg/dL 70-110 H : TESTED A T [facility] 6720 (BEAKER) (test code = [place], 1538) [address]: Collection Supervisor/Techni carroll ID = [id number] for Ce gretchen, Lisseth Urinalysis w/Microscopic + Reflex to [id number] 21:03:03 Test Item Value Reference Range Interpretation Comments Color, UA (test code Colorless = 5778-6) Clarity, UA (test Clear code = 5767-9) Specific [place], UA 1.013 1.001-1.035 (test code = 5811-5) pH, UA (test code = 7.0 5.0-8.0 5803-2) Protein, UA (test Negative Negative code = 44439-3) Glucose, UA (test Negative Negative code = 365) Ketones, UA (test Negative Negative code = 2514-8) Bilirubin, UA (test Negative Negative code = 16777-6) Blood, UA (test code Moderate Negative A = 84745-8) Nitrite, UA (test Negative Negative code = 5802-4) Leukocytes, UA (test Small Negative A code = 5799-2) Urobilinogen, UA 0.2 0.2-1.0 (test code = 07109-8) RBC, UA (test code = 62 See_Comment [Autom ated 43607-0) message] The system which generated this result [...] 6 See_Comment [Automate d (test code = 89144-1) messag e] The system which generated this result transmitted reference range : /LPF. The reference range was not used to interpret this result as normal/abnormal . Specimen Source (test code = 2795) CHRISTINA (test code = CHRISTINA) Collection Supervisor ID - [auto]Collection Supervisor ID - tech Lab Interpretation Abnormal (test code = 43544-0) [facility] + Reflex to Culture 2022-03-22 21:03:03 Test Item Value Reference Range Interpretation Comments Color, UA (test code Colorless = 5778-6) Clarity, UA (test Clear code = 5767-9) Specific [place], UA 1.013 1.001-1.035 (test code = 5811-5) pH, UA (test code = 7.0 5.0-8.0 5803-2) Protein, UA (test Negative Negative code = 23322-2) Glucose, UA (test Negative Negative code = 365) Ketones, UA (test Negative Negative code = 2514-8) Bilirubin, UA (test Negative Negative code = 15226-2) Blood, UA (test code Moderate Negative A = 44723-7) Nitrite, UA (test Negative Negative code = 5802-4) Leukocytes, UA (test Small Negative A code = 5799-2) Urobilinogen, UA 0.2 0.2-1.0 (test code = 51411-7) RBC, UA (test code = 62 See_Comment [Autom ated 80883-4) message] The system which generated this result [...] 6 See_Comment [Automate d (test code = 52770-4) messag e] The system which generated this result transmitted reference range : /LPF. The reference range was not used to interpret this result as normal/abnormal . Specimen Source (test code = 2795) CHRISTINA (test code = CHRISTINA) Collection Supervisor ID - [auto]Collection Supervisor ID - tech Lab Interpretation Abnormal (test code = 56304-6) [facility]/ REFLEX URINE [id number] 21:03:03 Test Item Value Reference Range Interpretation [...] /LPF 514) SOURCE(BEAKER) (test code = 2795) Collection Supervisor ID - [auto]Collection Supervisor ID - techPOCT-GLUCOSE [id number] 18:24:20 Test Item Value Reference Range Interpretation Comments POC-GLUCOSE METER 119 mg/dL 70-110 H : TESTED A T [facility] 67[facility] (BEAKER) (test code = [place], 1538) [address]: Collection Supervisor/Techni carroll ID = [id number] for Po ssMirna [id number] 18:20:41 Test Item Value Reference Range Interpretation Comments PROCALCITONIN (BEAKER) (test code = < ng/mL <0.05 3036) SEPSIS RISK (ng/mL)Low: 0.05-0.50Intermediate: 0.51-2.00High: >=2.01Lactic Acid, [id number] 18:16:27 Test Item Value Reference Range Interpretation Comments Lactate, Art (test 1.1 mmol/L 0.5-2.2 Specimen code = 2874) slightly hemolyzed CHRISTINA (test code = CHRISTINA) Collection Supervisor ID - BS Lab Interpretation Normal (test code = 25888-5) [facility] Farm[facility] Acid, [id number] 18:16:27 Test Item Value Reference Range Interpretation Comments Lactate, Art (test 1.1 mmol/L 0.5-2.2 Specimen code = 2874) slightly hemolyzed CHRISTINA (test code = CHRISTINA) Collection Supervisor ID - BS Lab Interpretation Normal (test code = 87192-4) [facility] FarmLACTIC ACID, [id number] 18:16:27 Test Item Value Reference Range Interpretation Comments LACTATE BLOOD 1.1 mmol/L 0.5-2.2 Specimen sligh tly ARTERIAL (2) (BEAKER) hemoly zed (test code = 2874) Collection Supervisor ID - [id number] 18:14:32 Test Item Value Reference Range Interpretation Comments PHOSPHORUS (BEAKER) (test code = 3.3 mg/dL 2.3-4.7 604) Collection Supervisor ID - BSBASIC METABOLIC [id number] 18:14:31 Test Item Value Reference Range Interpretation [...] (test code = 697) EGFR (BEAKER) 123 Interpretati on of eGFR (test code = [...] not appl icable for dialysis patien ts Collection Supervisor ID - [id number] 18:14:31 Test Item Value Reference Range Interpretation Comments MAGNESIUM (BEAKER) (test code = 1.9 mg/dL 1.6-2.6 627) Collection Supervisor ID - BSPOCT-GLUCOSE [id number] 11:57:33 Test Item Value Reference Range Interpretation Comments POC-GLUCOSE METER 135 mg/dL 70-110 H : TESTED A T [facility] 6720 (BEAKER) (test code = [place], 1538) [address]: Collection Supervisor/Techni carroll ID = [id number] for Po Mirna albrecht Bacterial culture + gram [id number] 10:57:30 Test Item Value Reference Range Interpretation Comments Result (test code = 1+ Normal respiratory 6463-4) stacy present Gram Stain Result No organisms seen (test code = 1123) CHRISTINA (test code = CHRISTINA) [facility] FarmBacterial culture + gram [id number] 10:57:30 Test Item Value Reference Range Interpretation Comments Result (test code = 1+ Normal respiratory 6463-4) stacy present Gram Stain Result No organisms seen (test code = 1123) CHRISTINA (test code = CHRISTINA) [facility] FarmBRONCHIAL CULTURE + GRAM [id number] 10:57:30 Test Item Value Reference Range Interpretation Comments CULTURE (BEAKER) 1+ Normal respiratory (test code = 1095) stacy present GRAM STAIN RESULT No White blood cells (BEAKER) (test code = seen 1123) GRAM STAIN RESULT No organisms seen (BEAKER) (test code = 221989) RAD, CHEST, 1 VIEW, NON [id number] 09:53:00Reason for exam:->intuabted, pneumothorax ,s/p CTShould this be performed at the bedside?->Yes [facility] 1985 Sex: MFINAL REPORT RAD, CHEST, 1 VIEW, NON DEPT INDICATION: intuabted, pneumothorax ,s/pCT COMPARISON: Prior day's exam FINDINGS: [...] findings: None. Signed: Justin Cramer Verified Date/Time: 03/22/2022 09:53:05 Reading Location: [address] Reading Room [id number] 04:45:15 Test Item Value Reference Range Interpretation Comments PHOSPHORUS (BEAKER) (test code = 4.0 mg/dL 2.3-4.7 604) Collection Supervisor ID - MARCOBASIC METABOLIC [id number] 04:45:14 Test Item Value Reference Range Interpretation [...] not appl icable for dialysis patien ts Collection Supervisor ID - GZJRXULVKXZNPG4895-19-59 04:45:14 Test Item Value Reference Range Interpretation Comments MAGNESIUM (BEAKER) (test code = 1.8 mg/dL 1.6-2.6 627) Collection Supervisor ID - MARCOCBC W/PLT COUNT & AUTO [id number] 04:40:50 Test Item Value Reference Range Interpretation [...] PERCENT (BEAKER) (test code = 2801) CALCIUM, [id number] 04:20:32 Test Item Value Reference Range Interpretation Comments CALCIUM IONIZED (BEAKER) (test 1.09 mmol/L 1.12-1.27 L code = 698) PH, BLOOD (BEAKER) (test code = 7.51 1810) BLOOD GAS, [id number] 04:20:30 Test Item Value Reference Range Interpretation [...] (BEAKER) (test code = 1819) 45.0 POCT-GLUCOSE [id number] 00:21:32 Test Item Value Reference Range Interpretation Comments POC-GLUCOSE METER 120 mg/dL 70-110 H : TESTED A T [facility] 6720 (BEAKER) (test code = [facility], 1538) [address]: Collection Supervisor/Techni carroll ID = [id number] for OR LENI SANCHEZ POCT-GLUCOSE [id number] 18:08:59 Test Item Value Reference Range Interpretation Comments POC-GLUCOSE METER 119 mg/dL 70-110 H : TESTED A T [facility] 6720 (BEAKER) (test code [facility], = 1538) [address]: Collection Supervisor/Techni carroll ID = [id number] for Jo knowles (contract), Mary ash [id number] 15:55:34 Test Item Value Reference Range Interpretation Comments PHOSPHORUS (BEAKER) (test code = 4.0 mg/dL 2.3-4.7 604) Collection Supervisor ID - BSBASIC METABOLIC [id number] 15:55:33 Test Item Value Reference Range Interpretation [...] not appl icable for dialysis patien ts Collection Supervisor ID - [id number] 15:55:33 Test Item Value Reference Range Interpretation Comments MAGNESIUM (BEAKER) (test code = 2.0 mg/dL 1.6-2.6 627) Collection Supervisor ID - BSPOCT-GLUCOSE [id number] 12:19:57 Test Item Value Reference Range Interpretation Comments POC-GLUCOSE METER 134 mg/dL 70-110 H : TESTED A T [facility] (BEAKER) (test code = [place], 1538) [address]: Collection Supervisor/Techni carroll ID = [id number] for IB RAHIM, S[place] LACTIC ACID, [id number] 10:06:44 Test Item Value Reference Range Interpretation Comments LACTATE BLOOD ARTERIAL (2) 0.9 mmol/L 0.5-2.2 (RADHAAKER) (test code = 2874) Collection Supervisor ID - NVXDBWfcexwxa3928-83-88 09:59:27 Test Item Value Reference Range Interpretation Comments Case Report (test code Medical Cytology = 104) Report Case: [id number] Authorizing Provider: Giovana Penn NP Collected: 03/19/2022 05:40 PM Ordering Location: [place] [address] ICU Received: 03/20/2022 09:07 AM Pathologist: Lance Koenig MD Specimen: Bronchial Wash DIAGNOSIS (test code = t0nmiRLuTKUoz3rtYGTruY 3220) FuZzEwMzNcZnRuYmpcdWMx IHtccnRmMVxlcGljOTYwMl bbxkQlWJDxdSWzQ9Wdopfx YMxsPH2eNB9rrJrxcGSgaH LkHRAuNsNnw8qwa736hPTl f3quNDPTjqncyJz8wVpqX0 5dx7D4JhgsW16amKXxHDH3 FGTfBEIvyCMcFUHwTNN7IG ElnLPmH2roPPNhYI2zeuby GGpzFOieGPEkmTS5GGRjnM LlN1MlUIAkKEhgPNEntbt7 TxTfSq0cxZXxzTbcDUfhXB JkXHBsYWluXGZzMjAgQlJP ZvXKFUMQRBuJO6zCQulgTQ QSOD7WVJlJOpv3OCPabuRp KMWdSU1WM7LJDUGKCLQRRm VTNPrIV90JSaYfY0DACYOz TMBqywIhMUTjVLJmNPR7oA EhNSOhWALkES8fM03uXpVz bmNoaWFsIGNlbGxzLCBtYW Xmk6CwRXnloyaebHP4mGOt SBVfrDQgl8CxRQMkePoaFL FugyRgxWKic0TqRZEfxRAg VKpqAoryxZ1ojFimdw2xdB FvbXxpaxVtWRmsf6TbARlf JZZiTA6rrOxrTDEcEQ4eHG QpM4yyxM0zysn1VpCrVFLj UgP8LRWawwO8Ifs9OZFqAZ lmv4xaq1DxUADnEUu3cIss IjJqGPZyf3minoUfZpFfNA FrTMFfDWNoxPHzL768r5xb p0nietMouOI5YAAgDLU2FM bwbxVkouR2GQptxKLqIdR1 IDtccmVkMFxncmVlbjBcYm v3DDIlR514OEE0lOpvg4ef GBD0VRWhYBYgBkBuNt8wdZ WuS712GIKdZPCNGNKsfSg3 IFCcxvGdirKdtAGXm500Y2 43t9rsJIXyhpBtiBmGiplq v8suS386PXJmrPBcmbTpDs XbGRZqaNCipSC4LXPxDR3m ymdaUXvdQKnjTKOgmzS2JY HshLKpA4GjGTSyDU6xgvjc UKL9CPiyPJRfGIH7GaTxVD Bhc0Kvxlt3OaLnds9rsf46 CJR3f4LrlKvcWRC2EEC5Nt JlMi3tbHHfWLZjMJ7tZsXo mZEmFNPaku17xClsYMtmVE C8OSJrruFee7Yqc6wuWmMd yqKvP8fiO6GkHWAxIBQvPK LeQxVihzZlt8Tyd2QffZRs wSp4b2skJCJpLJEmaYoie6 zgOSW6PLBouCMfF0rnlZ9p BXFxBA3qbiajl5cpKLfmYD ofMWCheZV1udP9QOOpnOHw E6CtyK9nEOEvYGciVAIesr y7SxRgPo8ejYIonRfvOGyl YmtwYWdlXHBnbmNvbnRccG duZGVjXHBsYWluXHBsYWlu XGYwXGZzMjRccWxcbGFuZz EwMzNcaGljaFxmMVxkYmNo SSEgNHakA2jyAaRvNwMjAr z0QJLafYYbINHeQgz2NZVu uGXlEQGLjNseiH7jJVKfuX kdxS1vkBP2BMDhosUdwPRP gD7hXLXXtY0pThY8JUPfHb z7QVF5LdDgqCEuwB3= COMMENT (test code = b2jnrGGxGZVqqAJ1SoYzIQ 0785) Jxb7mza1InjKGxuBNaQPca zHAcgpGrxe42eOM3nM59XZ 3fTQUxGbD9SRIixvJ5Pbl6 SQNnDYYnoVQzG170z9xen3 eoqzCgzFP6aYhgLINwbgbv ZlT8AXtuRMIbjbvzRPg5IZ raYSIlsKU4MYEblWJjV4Ng EASeHN7xhlz9CXI7EZgqFT FiMhI1PUIrfEPpIBMvxPed XTmki799JKQ8BfHcOWYxoo GaaEagoH5nVhTfVIMVwG2v QUwsWJwkeVWreKWspL7yvW snhP6pdTYyzBi8FYGakVOd oJatpRZcq7s9uMCIRB4zvC RhIHNwZWNpZXMgbGlrZWx5 ZZKezOPpb0HtoYlwCxBani MiQIGsieDkcGydDIHoj66f ULDwUS1zrJLsLxrbiF9ePH xpbmVcbGluZVxwYXJ9 CPT Code(s) (test code g8hujPGcHVXlrJF9SjUsKM = 8302) Hpk2hrz7ZstXVxnUKbSWda pHKviqSeqk28xQF2cT32TI 8qCFAyWvN3YJFfnoS6Sqf5 ZHGrJNGehRDxV517x1ujy4 xmcbDqxSB8lEqcWBWwdtrw IdY6SYcuVMGksrciROd5WD jkUSPsjQR2NGRewIDwJ0Hj IKHiOG3pomh3IXI1YZayJM FjSvO1JBZhzILaCNSinKnc DZmlt756XAH0GpPbJEIxfp EspPnluC0qHmJkWWU1YTSl OFxwYXJ9 CLINICAL DATA (test e1mfnYZcQPCelBG9GjMbUS code = 3352) Vqj8hlr5YakRLseZKaRQtc vXVoidBcdf52pNR3pX76OZ 6tRTOsOhN0CHRrghL7Aui3 DKVyHCMrrOJiW579b3skt1 ntenQujBB2VFThRLH9RHlr RMXtRYJxDbm0ONJ6G73tsF ZvZUA3KKEmHXGkhKHeHCMx PTM3CTAnwBVcU6vdPBOeUI 2ofijaCTbyDBkrGPTwgUW9 ODQykBXsV1QgSCCfZPtnZJ Pklnw0SeRkEl9isBKdcYpg MFxwYXJkXHBsYWluXGZzMj UwGorboK2oKORkQY9pzAYr CMH3sUXxNFCMCHtun4QkUB NmMSBjZXJlYnJhbCBwYWxz rAjpVLY6NTzjhY8zwgXagW EnZSooqLidm7TydXccn2ac OKFeqlVfXZWmcGQmg1opy5 StyV5nsNXunhBfxOaauJ9w pUZgYQ9fwUApQCYuckGaWs 4nWYjxsGafpXS0qXJcF6gb YX2sHXEcmODvLOa6xR58HF 2fNiUoQUPuqYKubM0lhSSl YWlsdXJlLlxwYXJ9 SPECIMEN SOURCE (test b0aukVXbCBEwlBF3PnMjTJ code = 3377) Yet6dbq1CsiUEsnIWfIUgc bRHwtiAjsi57uBS5oE16XG 3aNNMbSaX8MCKatgC5Ejz8 XIKlQGLscCSaR763h4ory1 eextWpfPM2yFrnDEBvjhfh EnE6POryMPIsewipYBx5VS nlWXZgmUW2OJSssOPvS5Hw XFZyRZ2byzd4MJU5EGmpBN VoEdG6GHJlpCGzGZLzxUwt ZDsfz535JYP2PcEhRMDejv HbkYhghS0hDbVhCBVMSr3C S4lHYKhjO6NMABcVU8grYX J9 GROSS DESCRIPTION (test m2umiQYkEUOnbXYXWPCkY8 code = [id number]) pnhoPoYYWqpZJkJ1Qlgvrm JAnfPW0hXO0wpXqmhESqeO QpWM4MKFPtIhNhEFSqbHPe zzCtVeGvFZNqcQDlmPC4QB DgDU0ckgcnWRqsSBwyJEOn wfI6LFYzuVMrM4ErWNAbMZ 6uyzrzPYL6WAyeqH6bbeJD BdumKr5avJFxkCihTuWpKm NoYXJzZXQwXGZuaWwgQXJp UXi4xZ1PBcbnBPH3ROUZMb xmKOYmQK9Ql1akFZNxsWEh SKI1QBpwoPHvTSCcHPMtVG o2KEVyFKcpaFMsXD6fdHcd UosgeXphj0FgaAEeKXjkMC HqRDAzIAyzIPYwYK9HXnQn EQZ9QkC1MgYvVAf7WBs7VO 0OXgBrXGDdTQX3Sni5FRDu VGt2QQjsSU4FWET4IhWdFI vrWrJ3EIJ8JJWnLTCtDmQt XGYgQXJpYWwgXFxmbCBcXG 0efMfipFBvqeAAFgPZlj8i H0yoXVnpL1TazP0tdIWmAJ 5PMCMdbRWFBGQ0NY5rGNXB ClxsdHJwYXJcbGluMFxyaW 8sLR6QCZd1eoQuOUVlQlUg QmGmPHd4JUXmLWIyyHyyWT ZswGe2rXuiHJOcbTSdpU2v IMriH9fnxEB7GUPmyQroAn AgipKfRGIcTCI7QNQ8fC0d xOhfvi5LQMZzPSnqSKLfeU SSQKM3OC4cENiipFBmjlil WYVoI1SjW3ZgrlElcXFdLK NmocLiv1lhOQZ9ZRVgsNAf wPFbKcJcKcncJDD1UJulp2 ubXAB5UTFgbCRosEDqXCov OcHwVadeJZHmN5McC0Bgyy R9DQp9 MICROSCOPIC DESCRIPTION h1jwdYDmGOTmaFO0OxTsIS (test code = 3371) Mbu1jyh4GawKJubVXbTMow iTHaemLsix44mKL6nG08TH 2uNPIhYxR8VVZplvI5Nuf6 MIFlNUUveSKeU047e1oju8 wrbqSlaID2nHdtVLWtcuxk IpZ5FKxyGTAhvtgdKRf0VK pcHZRnlMH3DBSprPMxE3Gb AADyTX2qpsq9YYD5AZruDS XtAlU6MMTntWWaQITztJkl SBhcb783QYL0CkNfRHRmbe PdpZlptP3nMgFdQFRRKENi b8MxMTBaDLUjjligZAZsPS Bhcn0= STATEMENT OF ADEQUACY Satisfactory (test code = 2757) Gross assessment was [facility] performed at (test code Medical Center, = 2776) Department of Pathology, [address] [place] [address], Technical component was [facility] performed at (test [facility], = 2778) Department of Pathology, [address] [place] [address], Professional component [facility] was performed at ([facility], code = 2779) Department of Pathology, [address] [place] [address], [facility] 09:59[facility]27 Test Item Value Reference Range Interpretation Comments Case Report (test code Medical Cytology = 104) Report Case: [id number] Authorizing Provider: Giovana Penn NP Collected: 03/19/2022 05:40 PM Ordering Location: [place] [address] ICU Received: 03/20/2022 09:07 AM Pathologist: Lance Koenig MD Specimen: Bronchial Wash DIAGNOSIS (test code = l9lfrTAdDSKmm2ioGCFjzP 3220) FuZzEwMzNcZnRuYmpcdWMx IHtccnRmMVxlcGljOTYwMl nhvbWpXMQxzZRqU7Kpndtc FVwgWW8kRV7daMmpcYVkjK TpXUPkFvGpj8qgg527fYVq x8drQYHUatpglFo5cExtJ1 2ez1N6SfssV04rwFKlKOE0 PMHkXBZabQEkLYQzDBU3BK PmmNFhL8ksPFAnJQ8yfhbx GTfgEDivZSYhpPA5XXRnwN NkA2OcQGZmASyqGSVjmvj0 HbTkZx7ahVXcvBajISmsCL JkXHBsYWluXGZzMjAgQlJP FcVOSLRYEHaDH7nJNotbOR TCBX6SNAnLGmt0AAMssyDw UVMhWU5WQ9RHNOIWOSXGXg GMGMjHQ08KAfOtN8BWGNCo IIIbnxMhKCTqTXWrMYU2xS UmUCFoQIKrLN9dL16vLgKy bmNoaWFsIGNlbGxzLCBtYW Xdk6JhRQvdqqviiHZ7eXUg IYIovUJwp4AnFDUnxRshPT IyutRndMLnu7FpYFSwdBJq XYltWttseR0xmVftcu9zmL RsiSkinuBoQKope3MfIHhx NDWqYK5kmYhiDQTkKM8kSJ IvP8pxuX0hgjv6IaYgUUBa GaK0HGBhdpM7Mop8KVPhLO bcv7ava1GgSKBeUZc7mDne OoJcSXXme4usijFmEyWtJT VvRDOiZYJqdMVsZ959f7ix x8gkodLzmVZ9AZSjTEI5BY wqywMqigP3RXnwaOLiKfZ6 IDtccmVkMFxncmVlbjBcYm k5WYArV547DZB3mJlkq8ci UNU7OPLsEFGaMvAzFu0maU YgL676WNMiVULTUDCyjGc3 GSSdinZizdQgrQVIc669B1 90j5frBUGxqnIncLlHovsf r8zdL715WMBvnJEjrnQrYu IlZXWrpWWdbWL5YUFgKT8s mpxmYUsuBJbnGCGodoU2XJ TlyFVaA1PkDBGxQE6crcuf PDD5ZQhpLTWnXCG5NuGrSX Ihw7Trreg9HoGczg2eqc35 CII9w8PqdMegGUN5HZE1Dd OfMl4goTFyAJXqNQ2qIuEj nOHwWEAsmn04pYkvXBnjEK O5QVHtsxEud4Xbd5fePkRd kmUtQ9hqK5VvYBMbAGYtQC JgHcQrziFlj9Tym7JluORg jCx9i6khSCRtKBFzaUrjk8 wuPEL0YLZhgTBcA4fckH9x WINvOW2cfcuhp5oxQEylHH ozOHYuaRQ7zuK5FPGgqEWr Y3OonA2xOARlELxbRNChid m9MeTaSq8xpCDacIouUDto YmtwYWdlXHBnbmNvbnRccG duZGVjXHBsYWluXHBsYWlu XGYwXGZzMjRccWxcbGFuZz EwMzNcaGljaFxmMVxkYmNo RRBuOLxtD9boBtPnTxFdWq r5ONQtfOOaZKJlBen9DVMt fTWxRBKZzOjnsD2bNXGyqC ezuI3yqIJ4QTHjrtFavNLL gQ6nVCDBiI0wRpX0ITVqPw t8WAY5JnXieXXvsF2= COMMENT (test code = z6mdyBJdGPVnhLR5RxKbGG 1258) Fjx3cnc6GhnUPwbEGfVOsv lWUrteBifr02tDN3wL96OK 2lQSUrUaG9MDVqwxW5Nsq6 VYXzYHRtvBLmK143r2cfz9 uyivIczGV2lDbtFKAbizwz RjK8YZglCOLoneigNKm5LS whCIQnpNM4LOZixJJbE1Wr TVUhGY1wbzl3QFC8CZxxXM VlLbL8XIQjlVBjWHMeyOqp IDrhm622VCK6QjZzXKLoff TpdFwgnA9cAcZuZQGEpB8x RGnjLWiwfXSagOPjsV2jjD iuuR2qvKQchUh8KNNpaZQy vWrbuBEhi3l8kIGLHO4jxY RhIHNwZWNpZXMgbGlrZWx5 QCLurGAvy4XggEjmDwAbog XtBNPoqkChgZlnMGGnq46t QEFlUX1mqGZbZrekvG1lWX xpbmVcbGluZVxwYXJ9 CPT Code(s) (test code b4tnzOEbOYDaiLH3YdYgOF = 3357) Iui7ovg0MeiFLegRPhSLly cJSdfaYjzv52wTN7bQ31HJ 2pHCUfNiW0CIGyexK8Uez3 NAWhTXTfrIVdI972l7ntm0 rotkRweLJ0kVvbQZDsayhq HpR1BCswBUMnfcyaMQs3JI nqNBIjpLZ3PZCnuIMvU6Cq ERQmOF7yhgv8TYA8OYabVM BnEgZ1EYEacSUcEWPobYax HEoaz546KJV6DyMdZXVlil EjcDbzpT8jHsUmLJD3NRRk OFxwYXJ9 CLINICAL DATA (test r3zeyTJgDAGqnTB9HdQsSA code = 3355) Bbd7aup3YupLIkvYMkDWsu ySRgtbSwfg18wBS6tA87FK 3bIBBmKqE5WPOqllM2Cfb1 WNOiQEXnpEKwA609d5ufs4 ubfwGwfTQ5MIFyUYK6XBdf RYObVLCqJwr8JZN1F55idQ DzONB3CEWiUBLohKTnDUJq XMY6LNHzlRLbZ6foTYWuBI 6kzfhrUEqsARhhKFVvuPS6 LAAncMErN8JwYIHvVCnxCG Fuyha8ScQoPc1ffZHxeUnc MFxwYXJkXHBsYWluXGZzMj CkUmldiX7dXQKkLO7hcDLr EQM2iLYgCQDORLchr4RgAC NmMSBjZXJlYnJhbCBwYWxz jQvhOBQ1ADftpS3ujeBnyA MgQBlluOtak8ElfLcky5ss NMHhaoKqRDPmyXAxa9iwe9 ZhrH8ceGMwtlYowKbhwV3g kPTiKU4lsYQcXFAwqwRoGb 6eUEgmeBzbkOO1hIUyH1as HI6qKEWowDNnVWj8kM45JI 4pUpSdEAOjxPIlyT1vwDIp YWlsdXJlLlxwYXJ9 SPECIMEN SOURCE (test y0zmzRQiOSMrrVI7RhUiAC code = 3377) Ehq1tip6FbfBLsyOWvEHzj mVVpsnVela21jXB5qB13MS 4mRMGcUgO1TCTevmK5Ifn6 UDOpIABzkKQiC659j0srg7 gchcKzgBL7iHsrKBVfgzub UaI1CItqKVGqhwjrYDp9WF eeYZRjjPL3DYVlwQPjK4Zv EUNwKM5qnko9AEM2MBjdGH GzBgQ8YIQkqESeGZHxjFhf AMelj055XRX5LbOqHFCfnj IcmNwkuC3aDgQuOLWGXe4K D3oKGRxiV5BOPCiMO7wsHQ J9 GROSS DESCRIPTION (test h0xbxUXuAROwyDITLJHbP6 code = [id number]) ipkvUkRJDwiJOyO6Uphoqs JPijHB8wGB8ltJixgKAbxZ RkRR2ZROLdZmBoPSHuiEXx ocMfMzZyLYZvjOVugLA0AB LsEO2mnkjtZXatCSskFJKf qvB5UXCjwDWcG7IvPTVoFS 3poufyASB8EGourA8jscCE KroaDr0hcBSasYisMrKzBk NoYXJzZXQwXGZuaWwgQXJp GCh2kG3LKpugZTW7FJDECa vuKPVeFQ8Tc4vpOGTswUSd DSN3RDtwdREdIELmCYNoDZ h9SWKtXIbrhNKiRO7iaEvj OkwkkNinz4HtnDNoXHbmHQ QsMPOtGOtfJUAnKB4UVzZk KPU4UkR9UgGyEOh4YZb0LV 1HGwHaHXQgCSV9Ivg4AASk WEs4CHhbUW7SVBB0YdFuCR irWiC8RTV7LZPaPMQrHdEz XGYgQXJpYWwgXFxmbCBcXG 8oxWapyTWfvwOSAnISft3r F3rzDZakZ4NflO6xqDKlUE 7AJWFygRNHZBF9IF8fRQJN ClxsdHJwYXJcbGluMFxyaW 6qHJ3DBVk3rsGbRFVcCoHb IpUdVEv6YTCjJRHizJzqAA UqvJv9gLueYPAblRUcqD0d AJtdF6yecJF2BIBzzZlgZr IzupMvZFStJMC2VWV4sL5o uMdpye0OXMNzXKqaFOExoC LZVEW4NY0mJBixtOTejesu AIGqL6YuT9RmlhPubCQlBS OomrYbi8fcZLJ4YPFleOTa fPGvSiJwYagoUBZ9JQxpa6 oxTAL5VGLnhBNnpLKnULal FcHxZkqhLAEvV7VpJ2Ipki R9DQp9 MICROSCOPIC DESCRIPTION n9parDHeLMDwgGA4HhQkRU (test code = 3371) Xtg4hhy2VzyYSbuTSrQWyr jXXiumWggs71fOR7nO27CO 0uNFZtClP3JCPrgwE2Bxe3 FGOiUZBbiXWkO207q0zcv9 tgusTiaEJ3eDokLZXxmjzp NgF3VEkyYLRkkegcWSc2UJ olHISznGN3DMMqdVNuL4Dq NEDpCM8adfe1YBB3VKemAA FdDcX4JPAbaNXoQUBwePet HAglb381UCF4NiYvQMMfzd YyjPcveU7mYkFnANJETJBl e8TnISPwEIRdliczJRKuJU Bhcn0= STATEMENT OF ADEQUACY Satisfactory (test code = 2757) Gross assessment was [facility] performed at (test [facility], = 2777) Department of Pathology, [address] [place] [address], Technical component was [facility] performed at ([facility], = 2778) Department of Pathology, [address] [place] [address], Professional component [facility] was performed at ([facility], code = 2779) Department of Pathology, [address] [place] [address], [facility] Farm[facility]TOLOGY2022-12-14 09:59:27Medical Cytology Report Case: [id number] Authorizing Provider: Giovana Penn NP Collected: 03/19/2022 05:40 PM Ordering Location: [place] [address] ICU Received: 03/20/2022 09:07 AM Pathologist: Lance Koenig MD Specimen: Bronchial Wash BRONCHIAL WASHING (CYTOSPINS): - NEGATIVE FOR MALIGNANT CELLS. -Reactive and benign bronchial cells, macrophages, mature squamous cells, and marked acute inflammation. Signing Pathologist Direct Phone Line: [phone] signed by Lance Koenig MD on03/21/2022 at 9:59 AMFungal elements morphologically compatible with Danielle species likely representing oral contamination are noted.[id number] yo M admitted with PMHx of cerebral palsy, developmental delay, scoliosis, and epilepsy of unclear etiology admitted on 03/08 with lethargy and acute hypoxemic respiratory failure.BRONCHIAL WASHINGA. Bronchial Wash.Received 15 mls a little bit bloody cloudy fluid; prepared 4 cytospinsPerformed.[facility], [facility] of Pathology, [address] [place] [address], [facility], [facility] of [facility], [address] [place] [address], [facility], Department of Pathology, [address] [place] [address], ZPE, CHEST, 1 VIEW, NON [id number] 09:03:00Reason for exam:->intuabted, pneumothorax ,s/p CTShould this be performed at the bedside?->Yes [facility] 1985 Sex: MFINAL REPORT RAD, CHEST, 1 VIEW, NON DEPT INDICATION: intuabted, pneumothorax ,s/pCT COMPARISON: Prior day's exam FINDINGS: [...] None. Signed: Justin Cramer MDReport Verified Date/Time: 03/21/2022 09:03:45 Reading Location: [address] Reading Room E lectronically signed by: JUSTIN CRAMER MD on 03/21/2022 09:03 AM [id number] 04:30:58 Test Item Value Reference Range Interpretation Comments PHOSPHORUS (BEAKER) (test code = 4.0 mg/dL 2.3-4.7 604) Collection Supervisor ID - NELLY EPATIC FUNCTION [id number] 04:30:58 Test Item Value Reference Range Interpretation [...] code = 70 U/L 6-55 H 347) Collection Supervisor ID - NELLY [id number] 04:30:58 Test Item Value Reference Range Interpretation Comments LIPASE (BEAKER) (test code = 749) 14 U/L 8-78 Collection Supervisor ID - NELLY MBASIC METABOLIC [id number] 04:30:57 Test Item Value Reference Range Interpretation [...] not appl icable for dialysis patien ts Collection Supervisor ID - NELLY [id number] 04:30:57 Test Item Value Reference Range Interpretation Comments MAGNESIUM (BEAKER) (test code = 1.8 mg/dL 1.6-2.6 627) Collection Supervisor ID - NELLY MCBC W/PLT COUNT & AUTO [id number] 04:11:19 Test Item Value Reference Range Interpretation [...] (BEAKER) (test code = 2801) LACTIC ACID, [id number] 04:08:31 Test Item Value Reference Range Interpretation Comments LACTATE BLOOD ARTERIAL (2) 3.4 mmol/L 0.5-2.2 H (BEAKER) (test code = 2874) Collection Supervisor ID - NELLY MBLOOD [id number] 04:00:40 Test Item Value Reference Range Interpretation Comments CULTURE (BEAKER) (test No growth in 5 days code = 1095) BLOOD [id number] 04:00:40 Test Item Value Reference Range Interpretation Comments CULTURE (BEAKER) (test No growth in 5 days code = 1095) CALCIUM, [id number] 03:48:54 Test Item Value Reference Range Interpretation Comments CALCIUM IONIZED (BEAKER) (test 1.05 mmol/L 1.12-1.27 L code = 698) PH, BLOOD (BEAKER) (test code = 7.48 1810) BLOOD GAS, [id number] 03:48:54 Test Item Value Reference Range Interpretation [...] (BEAKER) (test code = 1819) 60.0 POCT-GLUCOSE [id number] 23:53:47 Test Item Value Reference Range Interpretation Comments POC-GLUCOSE METER 132 mg/dL 70-110 H : TESTED A T [facility] 6720 (BEAKER) (test code = [place], 1538) [address]: Collection Supervisor/Techni carroll ID = [id number] for Oscar Olmedo RAD, CHEST, 1 VIEW, NON [id number] 21:42:00Reason for exam:- >hypoxiaShould this be performed at the bedside?->Yes [facility] 1985 Sex: MFINAL REPORT RAD, CHEST, 1 VIEW, NON DEPT CLINICAL STATEMENT: Hypoxia, shortness ofbreath. COMPARISON: 03/20/2022 at 0115 hours. FINDINGS: Heart is moderately enlarged. Endotracheal tube and enteric tube are in appropriate placement. No pneumothorax. Moderate pulmonary edema. Mild bilateral pleural effusions. IMPRESSION: Stable findings of CHF. Signed: [facility] Verified Date/Time: 03/20/2022 21:42:37 BASI METABOLIC [id number] 21:02:50 Test Item Value Reference Range Interpretation [...] not appl icable for dialysis patien ts Collection Supervisor ID - [id number] 21:02:50 Test Item Value Reference Range Interpretation Comments MAGNESIUM (BEAKER) (test code = 2.5 mg/dL 1.6-2.6 627) Collection Supervisor ID - [id number] 21:02:50 Test Item Value Reference Range Interpretation Comments PHOSPHORUS (BEAKER) (test code = 4.1 mg/dL 2.3-4.7 604) Collection Supervisor ID - BSBLOOD GAS, [id number] 20:52:30 Test Item Value Reference Range Interpretation [...] (BEAKER) (test code = 1819) 60.0 POCT-GLUCOSE [id number] 16:35:39 Test Item Value Reference Range Interpretation Comments POC-GLUCOSE METER 120 mg/dL 70-110 H : [facility] (BEAKER) (test code = [place], 1538) [address]: Collection Supervisor/Techni carroll ID = [id number] for Damián jacobs (contract)Consuelo tavia BASIC METABOLIC [id number] 12:41:38 Test Item Value Reference Range Interpretation [...] not appl icable for dialysis patien ts Collection Supervisor ID - [id number] 12:41:38 Test Item Value Reference Range Interpretation Comments MAGNESIUM (BEAKER) (test code = 1.9 mg/dL 1.6-2.6 627) Collection Supervisor ID - [id number] 12:41:38 Test Item Value Reference Range Interpretation Comments PHOSPHORUS (BEAKER) (test code = 3.6 mg/dL 2.3-4.7 604) Collection Supervisor ID - MARCOPOCT-GLUCOSE [id number] 11:59:52 Test Item Value Reference Range Interpretation Comments POC-GLUCOSE METER 124 mg/dL 70-110 H : TESTED A T [facility] 67[address] (BEAKER) (test code = [place], 1538) [address]: Collection Supervisor/Techni carroll ID = [id number] for Damián jacobs (contract)Consuelo SPIN/CONCENTRATION [id number] 11:51:14 Test Item Value Reference Range Interpretation Comments Concentration charged (test code = Done 840) [facility] [id number] 11:51:14 Test Item Value Reference Range Interpretation Comments Concentration charged (test code = Done 124) [facility] [id number] 11:51:14 Test Item Value Reference Range Interpretation Comments CONCENTRATION CHARGED (BEAKER) (test Done code = 2657) SPUTUM CULTURE + GRAM [id number] 10:04:40 Test Item Value Reference Range Interpretation Comments CULTURE (BEAKER) (test See comment code = 1095) GRAM STAIN RESULT 3+ WBCs (BEAKER) (test code = 1123) GRAM STAIN RESULT 0-5 epithelial cells (BEAKER) (test code = 500160) GRAM STAIN RESULT 1+ budding yeast (BEAKER) (test code = 355311) 2+ YeastNo Normal respiratory stacy presentRAD, CHEST, 1 VIEW, NON DEPT 2022-03-20 08:43:00Reason for exam:->intuabted, pneumothorax ,s/p CTShould this be performed at the bedside?->Yes [facility] 1985 Sex: MFINAL REPORT [...] findings: None. Signed: Justin Cramer Verified Date/Time: 03/20/2022 08:43:11 Reading Location: [address] Reading Room El ectronically signed by: JUSTIN CRAMER MD on 03/20/2022 08:43 AM TSH/FREE T4 IF [id number] 04:16:48 Test Item Value Reference Range Interpretation Comments THYROID STIMULATING HORMONE 3.022 uIU/mL 0.350-4.940 (BEAKER) (test code = 772) Collection Supervisor ID - [id number] 03:59:43 Test Item Value Reference Range Interpretation Comments PHOSPHORUS (BEAKER) (test code = 3.6 mg/dL 2.3-4.7 604) Collection Supervisor ID - MARCOBASIC METABOLIC [id number] 03:59:42 Test Item Value Reference Range Interpretation [...] not appl icable for dialysis patien ts Collection Supervisor ID - [id number] 03:59:42 Test Item Value Reference Range Interpretation Comments MAGNESIUM (BEAKER) (test code = 2.1 mg/dL 1.6-2.6 627) Collection Supervisor ID - MARCOCBC W/PLT COUNT & AUTO [id number] 03:43:50 Test Item Value Reference Range Interpretation [...] (BEAKER) (test code = 2801) BLOOD GAS, [id number] 03:21:10 Test Item Value Reference Range Interpretation [...] (BEAKER) (test code = 1819) 60.0 CALCIUM, [id number] 03:21:09 Test Item Value Reference Range Interpretation Comments CALCIUM IONIZED (BEAKER) (test 1.04 mmol/L 1.12-1.27 L code = 698) PH, BLOOD (BEAKER) (test code = 7.51 1810) POCT-GLUCOSE [id number] 00:12:42 Test Item Value Reference Range Interpretation Comments POC-GLUCOSE METER 142 mg/dL 70-110 H : TESTED A T [facility] 6720 (BEAKER) (test code = [place], 1538) [address]: Collection Supervisor/Techni carroll ID = [id number] for Shahnaz Mckeon BODY FLUID CELL COUNT WITH [id number] 22:19:44 Test Item Value Reference Range Interpretation Comments APPEARANCE FLUID Cloudy Clear A (BEAKER) (test code = 510) COLOR FLUID (BEAKER) Sour John Colorless, Straw A (test code = 511) [...] sy stem which 1691) generated this result transmitted ref erence range: [...] EDTA Tube (BEAKER) (test code = 2873) [id number] 22:05:43 Test Item Value Reference Range Interpretation Comments MAGNESIUM (BEAKER) (test code = 1.7 mg/dL 1.6-2.6 627) Collection Supervisor ID - [id number] 22:05:43 Test Item Value Reference Range Interpretation Comments PHOSPHORUS (BEAKER) (test code = 3.2 mg/dL 2.3-4.7 604) Collection Supervisor ID - BSBASIC METABOLIC [id number] 22:05:42 Test Item Value Reference Range Interpretation [...] eGF R is based on the CKD-EPI 1 equation that d oes not use a race coefficientEsti mated GFR is not as accur ate as Creatinine Papi patten in predicting glom erular filtration rate . Estimated GFR is not appl icable for dialysis patien ts Collection Supervisor ID - BSBLOOD GAS, [id number] 18:02:14 Test Item Value Reference Range Interpretation [...] (BEAKER) (test code = 1819) 60.0 POCT-GLUCOSE [id number] 18:01:30 Test Item Value Reference Range Interpretation Comments POC-GLUCOSE METER 112 mg/dL 70-110 H : TESTED A T [facility] 67[address] (BEAKER) (test code = [place], 1538) [address]: Collection Supervisor/Techni carroll ID = [id number] for Damián jacobs (contract)Consuelo [id number] 13:51:31 Test Item Value Reference Range Interpretation Comments PHOSPHORUS (BEAKER) (test code = 3.7 mg/dL 2.3-4.7 604) Collection Supervisor ID - ADRYAN BBASIC METABOLIC [id number] 13:51:30 Test Item Value Reference Range Interpretation [...] not appl icable for dialysis patien ts Collection Supervisor ID - ADRYAN [id number] 13:51:30 Test Item Value Reference Range Interpretation Comments MAGNESIUM (DORIS) (test code = 1.8 mg/dL 1.6-2.6 627) Collection Supervisor ID - ADRYAN BPOCT-GLUCOSE [id number] 12:12:12 Test Item Value Reference Range Interpretation Comments POC-GLUCOSE METER 129 mg/dL 70-110 H : TESTED A T [facility] [address] (DORIS) (test code = [place], 1538) [address]: Collection Supervisor/Techni carroll ID = [id number] for Damián jacobs (contract)Consuelo tavia RAD, CHEST, 1 VIEW, NON [id number] 08:16:00Reason for exam:->intuabted, pneumothorax ,s/p CTShould this be performed at the bedside?->Yes [facility] : 1985 Sex: MFINAL REPORT [...] Cramer Verified Date/Time: 03/19/2022 08:16:47 Reading Location: [address] Reading Room El ectronically signed by: JUSTIN CRAMER MD on 03/19/2022 08:16 AMPOCT- GLUCOSE [id number] 05:51:12 Test Item Value Reference Range Interpretation Comments POC-GLUCOSE METER 128 mg/dL 70-110 H : TESTED A T [facility] 67[address] (BEAKER) (test code = [place], 1538) [address]: Collection Supervisor/Techni carroll ID = [id number] for Toshia Mcfarlane CBC W/PLT COUNT & AUTO [id number] 02:55:25 Test Item Value Reference Range Interpretation [...] H PERCENT (BEAKER) (test code = 2801) [id number] 02:49:31 Test Item Value Reference Range Interpretation Comments MAGNESIUM (BEAKER) (test code = 2.0 mg/dL 1.6-2.6 627) Collection Supervisor ID - MALOU [id number] 02:49:31 Test Item Value Reference Range Interpretation Comments PHOSPHORUS (BEAKER) (test code = 2.9 mg/dL 2.3-4.7 604) Collection Supervisor ID - MALOU LBASIC METABOLIC [id number] 02:49:30 Test Item Value Reference Range Interpretation [...] not appl icable for dialysis patien ts Collection Supervisor ID - MALOU LVANCOMYCIN LEVEL, [id number] 02:42:30 Test Item Value Reference Range Interpretation Comments VANCOMYCIN TROUGH (BEAKER) (test 15.3 ug/mL 10.0-20.0 code = 522) Collection Supervisor ID - MALOU LCALCIUM, [id number] 02:28:26 Test Item Value Reference Range Interpretation Comments CALCIUM IONIZED (BEAKER) (test 1.02 mmol/L 1.12-1.27 L code = 698) PH, BLOOD (BEAKER) (test code = 7.50 1810) BLOOD GAS, [id number] 02:28:26 Test Item Value Reference Range Interpretation [...] (BEAKER) (test code = 1819) 60.0 POCT-GLUCOSE [id number] 02:24:07 Test Item Value Reference Range Interpretation Comments POC-GLUCOSE METER 127 mg/dL 70-110 H : TESTED A T [facility] 6720 (BEAKER) (test code = [place], 1538) [address]: Collection Supervisor/Techni carroll ID = [id number] for Toshia Mcfarlane CT, [id number] 01:16:00Unlisted Reason for Exam - Click Yes and Enter Reason Below->NoIs this for enterography?->NoWill this procedure require oral contrast?->No [facility] : 1985 Sex: MFINAL REPORT CT, ABDOMEN [...] lower lobe pneumonia suspected. Signed: Wilian Duron Verified Date/Time: 03/19/2022 01:16:54 POCT- GLUCOSE [id number] 18:59:42 Test Item Value Reference Range Interpretation Comments POC-GLUCOSE METER 116 mg/dL 70-110 H : TESTED A T [facility] 6720 (DORIS) (test code = [place], 1538) [address]: Collection Supervisor/Techni carroll ID = [id number] for Iwona Wolf U/S, ABDOMINAL, [id number] 18:30:00Abdomen limited area? Add comment if clarification is needed.->Right upper quadrantReason for exam:->acute alannaCH[facility]: [facility] : 1985 Sex: MFINAL REPORT U/S, ABDOMINAL, LIMITED CLINICAL HISTORY: acute alanna Comparison: None TECHNIQUE: Real time grayscale and color Doppler images of the right upper quadrant abdominal organs were obtained using a curved transducer. FINDINGS: Pancreas: Visualized portions are unremarkable Liver: Normal echotexture and echogenicity. Focal liver lesions: None. Portal vein: Normal, hepatopetal flow. Normal diameter main portal vein. Bile ducts: No biliary dilation. Common bile duct was not seen. Gallbladder: The gallbladder is not well evaluated. Gallbladder appears decompressed. No stones or sludge is appreciated. Right kidney: Normal in size and cortical thickness. No hydronephrosis, mass or stone. Ascites: None Visualized aorta and IVC: Unremarkable. Incidentally seen right pleural effusion. MEASUREMENTS:Liver: 15.3 cm Common Duct: Not seen Right Kidney: 9.8 cm Aorta: 2.0 cm IMPRESSION: Limited evaluation of the gallbladder and common bile duct. No sonographic evidence of acute cholecystitis. Evaluation with cross-sectional imaging may be helpful. Right pleural effusion. Signed: Irma Arechiga Verified Date/Time: 03/18/2022 18:30:19 Reading Location: [address] Transitional Reading Room BASIC METABOLIC [id number] 16:59:56 Test Item Value Reference Range Interpretation [...] not appl icable for dialysis patien ts Collection Supervisor ID - NELLY [id number] 16:59:56 Test Item Value Reference Range Interpretation Comments MAGNESIUM (BEAKER) (test code = 1.9 mg/dL 1.6-2.6 627) Collection Supervisor ID - NELLY MBLOOD GAS, [id number] 16:38:07 Test Item Value Reference Range Interpretation [...] (BEAKER) (test code = 1819) 21.0 POCT-GLUCOSE [id number] 12:33:30 Test Item Value Reference Range Interpretation Comments POC-GLUCOSE METER 126 mg/dL 70-110 H : TESTED A T [facility] 6720 (BEAKER) (test code = [place], 1538) [address]: Collection Supervisor/Techni carroll ID = [id number] for Russ Wolfen SPUTUM CULTURE + GRAM [id number] 10:39:03 Test Item Value Reference Range Interpretation Comments CULTURE (BEAKER) See comment (test code = 1095) GRAM STAIN RESULT 2+ White blood cells (BEAKER) (test code = seen 1123) GRAM STAIN RESULT 0-5 epithelial cells (BEAKER) (test code = 077052) GRAM STAIN RESULT No organisms seen (BEAKER) (test code = 482227) 1+ YeastNo Normal respiratory stacy presentHEPATIC FUNCTION [id number] 09:06:20 Test Item Value Reference Range Interpretation [...] (test code = 40 U/L 6-55 347) Collection Supervisor ID - MARCOSpecimen slightly lipemicRAD, CHEST, 1 VIEW, NON DEPT 2022-03-18 07:31:00Reason for exam:->intuabted, pneumothorax ,s/p CTShould this be performed at the bedside?->Yes [facility] : 1985 Sex: MFINAL REPORT [...] Cramer MDReport Verified Date/Time: 03/18/2022 07:31:34 IUM, [id number] 05:07:53 Test Item Value Reference Range Interpretation Comments CALCIUM IONIZED (BEAKER) (test 1.06 mmol/L 1.12-1.27 L code = 698) PH, BLOOD (BEAKER) (test code = 7.47 1810) BLOOD GAS, [id number] 04:38:24 Test Item Value Reference Range Interpretation [...] FIO2 (BEAKER) (test code = 1819) 65.0 [id number] 03:18:25 Test Item Value Reference Range Interpretation Comments MAGNESIUM (BEAKER) (test code = 1.9 mg/dL 1.6-2.6 627) Collection Supervisor ID - NELLY [id number] 03:18:25 Test Item Value Reference Range Interpretation Comments PHOSPHORUS (BEAKER) (test code = 2.6 mg/dL 2.3-4.7 604) Collection Supervisor ID - NELLY MBASIC METABOLIC [id number] 03:18:24 Test Item Value Reference Range Interpretation [...] not appl icable for dialysis patien ts Collection Supervisor ID - NELLY MCBC W/PLT COUNT & AUTO [id number] 03:03:00 Test Item Value Reference Range Interpretation [...] PERCENT (BEAKER) (test code = 2801) POCT-GLUCOSE [id number] 18:55:15 Test Item Value Reference Range Interpretation Comments POC-GLUCOSE METER 121 mg/dL 70-110 H : TESTED A T [facility] 6720 (BEAKER) (test code = [place], 1538) [address]: Collection Supervisor/Techni carroll ID = [id number] for Iwona Wolf BASIC METABOLIC [id number] 18:24:23 Test Item Value Reference Range Interpretation [...] not appl icable for dialysis patien ts Collection Supervisor ID - MALOU [id number] 18:24:23 Test Item Value Reference Range Interpretation Comments MAGNESIUM (BEAKER) (test code = 1.9 mg/dL 1.6-2.6 627) Collection Supervisor ID - MALOU LBLOOD GAS, [id number] 17:46:41 Test Item Value Reference Range Interpretation [...] (BEAKER) (test code = 1819) 21.0 SARS-COV2/RT-PCR ([facility])2022-03-17 15:42:37 Test Item Value Reference Range Interpretation Comments SARS-COV2/RT-PCR Negative Negative The SARS-Co V-2 target (test code = nucleic acids a re not 7277497) detected in thi s specimen. Negative result [...] revoked sooner. Fact Sheet for Healthcare Providers: https://www.Infinite.ly m/Documents/Xpert%20Xpress%20SARS%20CoV-2/Fact%20Sheets/3023802%99CRQK-BXY-0%20 HEALTHCARE%20PROVIDERS%20FACT%20SHEET.pdf Fact Sheet for Healthcare Patients: https://www.White [place]/Documents/Xpert%20Xp ress%20SARS%20CoV-2/Fact%20Sheets/3023801%42GGMD-BSF-5%20PATIENT%20FACT%20SHEET .pdfVANCOMYCIN LEVEL, [id number] 15:00:49 Test Item Value Reference Range Interpretation Comments VANCOMYCIN TROUGH (BEAKER) (test 7.3 ug/mL 10.0-20.0 L code = 522) Collection Supervisor ID - MALOU [id number] 14:14:00 Test Item Value Reference Range Interpretation Comments LIPASE (BEAKER) (test code = 749) 39 U/L Collection Supervisor ID - MARCOSPUTUM CULTURE + GRAM [id number] 11:56:18 Test Item Value Reference Range Interpretation Comments CULTURE (BEAKER) (test code See comment = 1095) GRAM STAIN RESULT (BEAKER) 1+ WBCs (test code = 1123) GRAM STAIN RESULT (BEAKER) <1+ budding yeast (test code = 393222) 1+ yeastNo Normal respiratory stacy presentPOCT-GLUCOSE [id number] 11:29:34 Test Item Value Reference Range Interpretation Comments POC-GLUCOSE METER 138 mg/dL 70-110 H : TESTED A T [facility] [address] (BEAKER) (test code = [place], 1538) [address]: Collection Supervisor/Techni carroll ID = [id number] for Iwona Wolf Venous doppler arms [id number] 08:26:21Ejection FractionSLEH ECHO HEARTLAB MKCKESSON CPACSCHI [facility] CenterVenous doppler arms bilateral 2022-03-17 08:26:21Ejection FractionSST. LUKE'S [facility] ECHO [facility]ARTLAB [facility], 1 VIEW, NON [id number] 06:33:00Reason for exam:->intuabted, pneumothorax ,s/p CTShould this be performed at the bedside?->[facility] : 1985 Sex: MFINAL REPORT [...] None. Signed: Justin Cramer MDReport Verified Date/Time: 03/17/2022 06:33:37 C METABOLIC [id number] 03:45:38 Test Item Value Reference Range Interpretation [...] (test code = 697) EGFR (BEAKER) 129 Interpretati on of eGFR (test code = mL/min/1.73 values Stage De scription 1092) sq m Result G1 Tyra l or high >=90 G2 Mildly decreased 60-89 G3a Mildl y to moderately 45- 59 G3b Moderately to s everely 30-44 G4 Severl y decreased 15-29 G5 Kidney failure <15Reported eGF R is based on the CKD-EPI 2020 equation that d oes not use a race coefficientEsti mated GFR is not as accur ate as Creatinine Papi patten in predicting glom erular filtration rate . Estimated GFR is not appl icable for dialysis patien ts Collection Supervisor ID - MALOU [id number] 03:45:38 Test Item Value Reference Range Interpretation Comments MAGNESIUM (BEAKER) (test code = 2.0 mg/dL 1.6-2.6 627) Collection Supervisor ID - MALOU [id number] 03:45:38 Test Item Value Reference Range Interpretation Comments PHOSPHORUS (BEAKER) (test code = 2.3 mg/dL 2.3-4.7 604) Collection Supervisor ID - MALOU LCALCIUM, [id number] 03:33:09 Test Item Value Reference Range Interpretation Comments CALCIUM IONIZED (BEAKER) (test 1.02 mmol/L 1.12-1.27 L code = 698) PH, BLOOD (BEAKER) (test code = 7.49 1810) BLOOD GAS, [id number] 03:33:09 Test Item Value Reference Range Interpretation [...] 1819) 50.0 CBC W/PLT COUNT & AUTO [id number] 03:00:51 Test Item Value Reference Range Interpretation [...] (BEAKER) (test code = 2801) BLOOD GAS, [id number] 20:03:22 Test Item Value Reference Range Interpretation [...] (BEAKER) (test code = 1819) 50.0 POCT-GLUCOSE [id number] 18:40:45 Test Item Value Reference Range Interpretation Comments POC-GLUCOSE METER 123 mg/dL 70-110 H : TESTED A T [facility] 6720 (BEAKER) (test code = [place], 1538) [address]: Collection Supervisor/Techni carroll ID = [id number] for IB RAHIM, SERSHERRYLEM RAD, CHEST, 1 VIEW, NON [id number] 17:26:00Reason for exam:->Chest tube removalShould this be performed at the bedside?->Yes [facility] : 1985 Sex: MFINAL REPORT [...] small bilateral pleural effusions. Signed: Jesse Sarmiento [facility]ENTER[facility] Verified Date/Time: 03/16/2022 17:26:50 [id number] 17:01:28 Test Item Value Reference Range Interpretation Comments MAGNESIUM (BEAKER) (test code = 1.7 mg/dL 1.6-2.6 627) Collection Supervisor ID - BSBASIC METABOLIC [id number] 17:01:27 Test Item Value Reference Range Interpretation [...] glom erular filtration rate . Estimated GFR i s not applicable for dialysis patients Collection Supervisor ID - BSPOCT-GLUCOSE [id number] 11:35:47 Test Item Value Reference Range Interpretation Comments POC-GLUCOSE METER 147 mg/dL 70-110 H : TESTED A T [facility] [address] (BEAKER) (test code = [place] [facility], 1538) [address]: Collection Supervisor/Techni carroll ID = [id number] for Iwona Wolf [id number] 10:51:48 Test Item Value Reference Range Interpretation Comments PROCALCITONIN (BEAKER) (test code 0.19 ng/mL <0.05 H = 3036) SEPSIS RISK (ng/mL)Low: 0.05-0.50Intermediate: 0.51-2.00High: >=2.01Venous doppler legs [id number] 10:19:38Ejection FractionSLEH ECHO HEARTLAB MKCKESSON [facility] CenterVenous doppler legs bilateral 2022-03-16 10:19:38Ejection FractionSLEH ECHO HEARTLAB MKCKESSON CPACSCHI [facility] HospitalRAD[facility]ST, 1 VIEW, NON [id number] 08:18:00Reason for exam:->intuabted, pneumothorax ,s/p CTShould this be performed at the bedside?->Yes[facility] : 1985 Sex: MFINAL REPORT [...] MDReport Verified Date/Time: 03/16/2022 08:18:38 Reading Location: [address] Reading Room HEPATIC FUNCTION PANEL 2022-03-16 [...] (test code = 43 U/L 6-55 347) Collection Supervisor ID - MARCOUrinalysis without [id number] 06:48:08 Test Item Value Reference Range Interpretation Comments Color, UA (test code = Yellow 5778-6) Clarity, UA (test code = Clear 5767-9) Specific [place], UA (test 1.031 1.001-1.035 code = 5811-5) pH, UA (test code = 7.5 5.0-8.0 5803-2) Protein, UA (test code = 50 mg/dL Negative A 44269-2) Glucose, UA (test code = Negative Negative 365) Ketones, UA (test code = Negative Negative 2514-8) Bilirubin, UA (test code = Negative Negative 60970-0) Blood, UA (test code = Negative Negative 96353-4) Nitrite, UA (test code = Negative Negative 5802-4) Leukocytes, UA (test code Negative Negative = 5799-2) Urobilinogen, UA (test 0.2 0.2-1.0 code = 53156-5) Specimen Source (test code = 2795) CHRISTINA (test code = CHRISTINA) Collection Supervisor ID - [auto]Collection Supervisor ID - tech Lab Interpretation (test Abnormal code = 97736-2) [facility] FarmUrinalysis without [id number] 06:48:08 Test Item Value Reference Range Interpretation Comments Color, UA (test code = Yellow 5778-6) Clarity, UA (test code = Clear 5767-9) Specific [place], UA (test 1.031 1.001-1.035 code = 5811-5) pH, UA (test code = 7.5 5.0-8.0 5803-2) Protein, UA (test code = 50 mg/dL Negative A 36685-5) Glucose, UA (test code = Negative Negative 365) Ketones, UA (test code = Negative Negative 2514-8) Bilirubin, UA (test code = Negative Negative 47189-7) Blood, UA (test code = Negative Negative 00370-7) Nitrite, UA (test code = Negative Negative 5802-4) Leukocytes, UA (test code Negative Negative = 5799-2) Urobilinogen, UA (test 0.2 0.2-1.0 code = 73105-2) Specimen Source (test code = 2795) CHRISTINA (test code = CHRISTINA) Collection Supervisor ID - [auto]Collection Supervisor ID - tech Lab Interpretation (test Abnormal code = 06942-0) [facility] FarmURINALYSIS WITHOUT [id number] 06:48:08 Test Item Value Reference Range Interpretation [...] = 463) SOURCE(BEAKER) (test code = 2795) Collection Supervisor ID - [auto]Collection Supervisor ID - techPOCT-GLUCOSE [id number] 06:31:33 Test Item Value Reference Range Interpretation Comments POC-GLUCOSE METER 110 mg/dL 70-110 : TESTED A T [facility] 6720 (BEAKER) (test code [facility], = 1538) [address]: Collection Supervisor/Techni carroll ID = [id number] for SUGU , NATHANENAMOL BLOOD GAS, [id number] 04:47:46 Test Item Value Reference Range Interpretation [...] (BEAKER) (test code = 1819) 50.0 CALCIUM, [id number] 04:47:46 Test Item Value Reference Range Interpretation Comments CALCIUM IONIZED (BEAKER) (test 1.07 mmol/L 1.12-1.27 L code = 698) PH, BLOOD (BEAKER) (test code = 7.50 1810) [id number] 04:09:18 Test Item Value Reference Range Interpretation Comments MAGNESIUM (BEAKER) (test code = 2.1 mg/dL 1.6-2.6 627) Collection Supervisor ID - MALOU [id number] 04:09:18 Test Item Value Reference Range Interpretation Comments PHOSPHORUS (BEAKER) (test code = 3.1 mg/dL 2.3-4.7 604) Collection Supervisor ID - PIAYA LBASIC METABOLIC [id number] 04:09:17 Test Item Value Reference Range Interpretation [...] not appl icable for dialysis patien ts Collection Supervisor ID - PIAYA LCBC W/PLT COUNT & AUTO [id number] 03:51:21 Test Item Value Reference Range Interpretation [...] PERCENT (BEAKER) (test code = 2801) POCT-GLUCOSE [id number] 00:11:28 Test Item Value Reference Range Interpretation Comments POC-GLUCOSE METER 131 mg/dL 70-110 H : TESTED A T [facility] 6720 (BEAKER) (test code [facility], = 1538) 34926: Collection Supervisor/Techni carroll ID = [id number] for SUGU , SHEENAMOL [id number] 18:08:19 Test Item Value Reference Range Interpretation Comments MAGNESIUM (BEAKER) (test code = 1.9 mg/dL 1.6-2.6 627) Collection Supervisor ID - BSBASIC METABOLIC [id number] 18:08:18 Test Item Value Reference Range Interpretation [...] eGF R is based on the CKD-EPI 1 equation that d oes not use a race coefficientEsti mated GFR is not as accur ate as Creatinine Papi sandor in predicting glom erular filtration rate . Estimated GFR is not appl icable for dialysis patien ts Collection Supervisor ID - BSPOCT-GLUCOSE [id number] 18:01:36 Test Item Value Reference Range Interpretation Comments POC-GLUCOSE METER 110 mg/dL 70-110 : TESTED A T [facility] 6720 (BEAKER) (test code = [place], 1538) 13316: Collection Supervisor/Techni carroll ID = [id number] for Sa olivo (contract), Seema mobley BLOOD GAS, [id number] 17:26:51 Test Item Value Reference Range Interpretation [...] (test code = 1819) 50.0 BLOOD GAS, [id number] 12:23:04 Test Item Value Reference Range Interpretation [...] (BEAKER) (test code = 1819) 50.0 POCT-GLUCOSE [id number] 11:17:14 Test Item Value Reference Range Interpretation Comments POC-GLUCOSE METER 129 mg/dL 70-110 H : TESTED A T [facility] 6720 (BEAKER) (test code = [place], 1538) 73478: Collection Supervisor/Techni carroll ID = [id number] for IB RAHIM, ANDERSLEM RAD, CHEST, 1 VIEW, NON [id number] 08:41:00Reason for exam:->intuabted, pneumothorax ,s/p CTShould this be performed at the bedside?->Yes [facility] 1985 Sex: MFINAL REPORT Chest AP portable COMPARISON STUDY: 03/14/2022 History provided: Follow-up intubated patient ET tube in good position with tip at the level of the clavicles. Feeding tube and right chest tube remain in place. No pneumothorax. Heart size normal. Dense airspace disease persists bilaterally without change. Signed: Bobby [place] Verified Date/Time: 03/15/2022 08:41:40Reading Location: [facility] Diagnostic Imaging Reading Room [place] [address] 1.310.12 POCT- GLUCOSE [id number] 06:10:43 Test Item Value Reference Range Interpretation Comments POC-GLUCOSE METER 125 mg/dL 70-110 H : TESTED A T [facility] 6720 (BEAKER) (test code [facility], = 1538) 69147: Collection Supervisor/Techni carroll ID = [id number] for NATHAN WESTFALLENAMOL BASIC METABOLIC [id number] 03:30:16 Test Item Value Reference Range Interpretation [...] not appl icable for dialysis patien ts Collection Supervisor ID - NELLY [id number] 03:30:16 Test Item Value Reference Range Interpretation Comments MAGNESIUM (BEAKER) (test code = 2.2 mg/dL 1.6-2.6 627) Collection Supervisor ID - NELLY [id number] 03:30:16 Test Item Value Reference Range Interpretation Comments PHOSPHORUS (BEAKER) (test code = 3.6 mg/dL 2.3-4.7 604) Collection Supervisor ID - NELLY MCALCIUM, [id number] 02:57:08 Test Item Value Reference Range Interpretation Comments CALCIUM IONIZED (BEAKER) (test 1.05 mmol/L 1.12-1.27 L code = 698) PH, BLOOD (BEAKER) (test code = 7.49 1810) BLOOD GAS, [id number] 02:57:08 Test Item Value Reference Range Interpretation [...] 1819) 60.0 CBC W/PLT COUNT & AUTO [id number] 02:56:06 Test Item Value Reference Range Interpretation [...] PERCENT (BEAKER) (test code = 2801) POCT-GLUCOSE [id number] 01:03:49 Test Item Value Reference Range Interpretation Comments POC-GLUCOSE METER 150 mg/dL 70-110 H : TESTED A T [facility] (BEAKER) (test code = [place], 1538) 537[address]: Collection Supervisor/Techni carroll ID = [id number] for Dulce Maria Pimentel [id number] 21:28:58 Test Item Value Reference Range Interpretation Comments MAGNESIUM (BEAKER) (test code = 1.8 mg/dL 1.6-2.6 627) Collection Supervisor ID - BSBASIC METABOLIC [id number] 21:28:57 Test Item Value Reference Range Interpretation [...] not appl icable for dialysis patien ts Collection Supervisor ID - BSPOCT-GLUCOSE [id number] 17:14:19 Test Item Value Reference Range Interpretation Comments POC-GLUCOSE METER 114 mg/dL 70-110 H : TESTED A T [facility] 6720 (BEAKER) (test code = [facility], 1538) 22719: Collection Supervisor/Techni carroll ID = [id number] for Sam mohan Iwona BLOOD GAS, [id number] 17:14:02 Test Item Value Reference Range Interpretation [...] = 1819) 70.0 BRONCHIAL CULTURE + GRAM [id number] 16:27:15 Test Item Value Reference Range Interpretation Comments CULTURE (BEAKER) (test code See comment = 1095) GRAM STAIN RESULT (BEAKER) 2+ WBCs (test code = 1123) GRAM STAIN RESULT (BEAKER) No organisms seen (test code = 482221) 2+ YeastPOCT-GLUCOSE [id number] 12:11:45 Test Item Value Reference Range Interpretation Comments POC-GLUCOSE METER 138 mg/dL 70-110 H : TESTED A T [facility] (BEAKER) (test code = [place], 1538) 27602: Collection Supervisor/Techni carroll ID = [id number] for Iwona Wolf BLOOD GAS, [id number] 10:24:20 Test Item Value Reference Range Interpretation [...] 1819) 80.0 RAD, CHEST, 1 VIEW, NON [id number] 09:01:00Reason for exam:->intuabted, pneumothorax ,s/p CTShould this be performed at the bedside?->Yes [facility] 1985 Sex: MFINAL REPORT CLINICAL HISTORY: intubated, pneumothorax ,s/p CT TECHNIQUE: 1 view ofthe chest. COMPARISON: 03/13/2022 IMPRESSION: The supporting lines and tubes are similar appearing. Diffuse bilateral pleural-parenchymal opacities are grossly unchanged. The cardiomediastinal silhouette is magnified by technique. Signed: Collette Weldon MDReport Verified Date/Time: 03/14/2022 09:01:41 Reading Location: [address] Reading Room BLOOD GAS, ARTERIAL 2022-03-14 [...] (BEAKER) (test code = 1819) 100.0 POCT-GLUCOSE [id number] 06:48:23 Test Item Value Reference Range Interpretation Comments POC-GLUCOSE METER 119 mg/dL 70-110 H : TESTED A T [facility] 6720 (BEAKER) (test code [facility], = 1538) 01512: Collection Supervisor/Techni carroll ID = [id number] for SUGU , SHEENAMOL [id number] 02:08:01 Test Item Value Reference Range Interpretation Comments MAGNESIUM (BEAKER) (test code = 1.9 mg/dL 1.6-2.6 627) Collection Supervisor ID - [id number] 02:08:01 Test Item Value Reference Range Interpretation Comments PHOSPHORUS (BEAKER) (test code = 2.8 mg/dL 2.3-4.7 604) Collection Supervisor ID - BSBASIC METABOLIC [id number] 02:08:00 Test Item Value Reference Range Interpretation [...] not appl icable for dialysis patien ts Collection Supervisor ID - BSBLOOD GAS, [id number] 01:45:36 Test Item Value Reference Range Interpretation [...] (BEAKER) (test code = 1819) 60.0 CALCIUM, [id number] 01:45:36 Test Item Value Reference Range Interpretation Comments CALCIUM IONIZED (BEAKER) (test 1.10 mmol/L 1.12-1.27 L code = 698) PH, BLOOD (BEAKER) (test code = 7.48 1810) CBC W/PLT COUNT & AUTO [id number] 01:44:37 Test Item Value Reference Range Interpretation [...] PERCENT (BEAKER) (test code = 2801) POCT-GLUCOSE [id number] 23:49:46 Test Item Value Reference Range Interpretation Comments POC-GLUCOSE METER 141 mg/dL 70-110 H : TESTED A T [facility] 6720 (BEAKER) (test code [facility], = 1538) 24758: Collection Supervisor/Techni carroll ID = [id number] for KALPESHBandar ARPITCait BLOOD [id number] 23:00:51 Test Item Value Reference Range Interpretation Comments CULTURE (BEAKER) (test No growth in 5 days code = 1095) The specimen volume collected for this blood culture was below the optimum (10 mL per bottle or 20 mL total). Use of lower volumes may adversely affect recovery and/or detection times of some organisms.BLOOD [id number] 23:00:51 Test Item Value Reference Range Interpretation Comments CULTURE (BEAKER) (test No growth in 5 days code = 1095) The specimen volume collected for this blood culture was below the optimum (10 mL per bottle or 20 mL total). Use of lower volumes may adversely affect recovery and/or detection times of some organisms.POCT-GLUCOSE [id number] 17:59:51 Test Item Value Reference Range Interpretation Comments POC-GLUCOSE METER 119 mg/dL 70-110 H : TESTED A T [facility] 6720 (BEAKER) (test code = [facility], 1538) 55680: Collection Supervisor/Techni carroll ID = [id number] for Iwona Wolf BLOOD GAS, [id number] 12:14:19 Test Item Value Reference Range Interpretation [...] (BEAKER) (test code = 1819) 50.0 POCT-GLUCOSE [id number] 11:59:27 Test Item Value Reference Range Interpretation Comments POC-GLUCOSE METER 115 mg/dL 70-110 H : TESTED A T [facility] 6720 (BEAKER) (test code = [facility], 1538) 17206: Collection Supervisor/Techni carroll ID = [id number] for Iwona Wolf RAD, CHEST, 1 VIEW, NON [id number] 09:38:00Reason for exam:->intuabted, pneumothorax ,s/p CTShould this be performed at the bedside?->Yes [facility] : 1985 Sex: MFINAL REPORT CLINICAL HISTORY: intuabted, pneumothorax ,s/p CT TECHNIQUE: 1 view ofthe chest. COMPARISON: 03/12/2022 IMPRESSION: The supporting lines and tubes are similar appearing. Bilateral pleural-parenchymal opacities unchanged. The cardiomediastinal silhouette is magnified by technique. No pneumothorax. Signed: Collette Weldon MDReport Verified Date/Time: 03/13/2022 09:38:31 Reading Location: [address] Reading Room POCT-GLUCOSE METER 2022-03-13 06:15:35 Test Item Value Reference Range Interpretation Comments POC-GLUCOSE METER 112 mg/dL 70-110 H : TESTED A T [facility] 6720 (BEAKER) (test code = [facility], 1538) 53189: Collection Supervisor/Techni carroll ID = [id number] for Tia Alcantar LACTIC ACID, [id number] 03:49:54 Test Item Value Reference Range Interpretation Comments LACTATE BLOOD ARTERIAL (2) 1.6 mmol/L 0.5-2.2 (BEAKER) (test code = 2874) Collection Supervisor ID - [id number] 02:48:26 Test Item Value Reference Range Interpretation Comments PHOSPHORUS (BEAKER) (test code = 2.7 mg/dL 2.3-4.7 604) Collection Supervisor ID - MARCOBASIC METABOLIC [id number] 02:48:25 Test Item Value Reference Range Interpretation [...] not appl icable for dialysis patien ts Collection Supervisor ID - [id number] 02:48:25 Test Item Value Reference Range Interpretation Comments MAGNESIUM (BEAKER) (test code = 1.9 mg/dL 1.6-2.6 627) Collection Supervisor ID - MARCOCBC W/PLT COUNT & AUTO [id number] 02:36:11 Test Item Value Reference Range Interpretation [...] (BEAKER) (test code = 2801) BLOOD GAS, [id number] 02:27:41 Test Item Value Reference Range Interpretation [...] (BEAKER) (test code = 1819) 55.0 CALCIUM, [id number] 02:24:43 Test Item Value Reference Range Interpretation Comments CALCIUM IONIZED (BEAKER) (test 1.12 mmol/L 1.12-1.27 code = 698) PH, BLOOD (BEAKER) (test code = 7.50 1810) POCT-GLUCOSE [id number] 23:50:24 Test Item Value Reference Range Interpretation Comments POC-GLUCOSE METER 125 mg/dL 70-110 H : TESTED A T [facility] 6720 (BEAKER) (test code = [facility] [place], 1538) 77374: Collection Supervisor/Techni carroll ID = [id number] for Tia Alcantar POCT-GLUCOSE [id number] 17:40:16 Test Item Value Reference Range Interpretation Comments POC-GLUCOSE METER 126 mg/dL 70-110 H : TESTED A T [facility] 6720 (BEAKER) (test code = [facility], 1538) 86149: Collection Supervisor/Techni carroll ID = [id number] for Damián jacobs (contract) Consuelo squires BLOOD GAS, [id number] 17:39:04 Test Item Value Reference Range Interpretation [...] = 1818) RAD, CHEST, 1 VIEW, NON [id number] 14:07:00Reason for exam:->pneumothorax- post clamping CTShould this be performed at the bedside?->Yes[facility] : 1985 Sex: MFINAL REPORT CLINICAL HISTORY: pneumothorax- post clamping CT TECHNIQUE: 1 view of the chest. COMPARISON: 03/12/2022 IMPRESSION: The supporting lines and tubes are similar appearing. Diffuse bilateral airspace opacities and suspected small pleural effusions are grossly unchanged. The cardiomediastinal silhouette is magnified by technique. Signed: Collette Weldon MDReport Verified Date/Time: 03/12/2022 14:07:32 Reading Location: [address] Reading Room Electronically signedby: COLLETTE WELDON M.D. on 03/12/2022 02:07 PMCALCIUM, [id number] 13:54:48 Test Item Value Reference Range Interpretation Comments CALCIUM IONIZED (BEAKER) (test 1.05 mmol/L 1.12-1.27 L code = 698) PH, BLOOD (BEAKER) (test code = 7.49 1810) STREP PNEUMONIAE [id number] 13:15:41 Test Item Value Reference Range Interpretation [...] the detection limit of the test.Legionella antigen, [id number] 13:15:07 Test Item Value Reference Range Interpretation Comments Legionella Urine Negative - see Negative Negative for L. Antigen (test code = comment pneumop edwardo 75386-1) serogroup 1 antigen, sugges ting no recent or current infecti on with this serogroup. Legionellosis cannot be ruled out since other serogroups and species may cau se disease. Lab Interpretation Normal (test code = 43386-0) [facility] FarmLegionella antigen, [id number] 13:15:07 Test Item Value Reference Range Interpretation Comments Legionella Urine Negative - see Negative Negative for L. Antigen (test code = comment pneumop edwardo 22783-6) serogroup 1 antigen, sugges ting no recent or current infecti on with this serogroup. Legionellosis cannot be ruled out since other serogroups and species may cau se disease. Lab Interpretation Normal (test code = 17924-9) [facility] FarmLEGIONELLA ANTIGEN, [id number] 13:15:07 Test Item Value Reference Range Interpretation Comments L. PNEUMOPHILA Negative - see Negative Negative fo r L. SEROGP 1 UR AG comment pneumophila (BEAKER) (test code serogrou p 1 antigen, = 1156) suggesting no r ecent or current infe ction with this serog roup. Legionellosis c annot be ruled out si nce other serogroup s and species may cau se disease. [id number] 12:44:20 Test Item Value Reference Range Interpretation Comments MAGNESIUM (BEAKER) (test code = 2.2 mg/dL 1.6-2.6 627) Collection Supervisor ID - [id number] 12:44:20 Test Item Value Reference Range Interpretation Comments PHOSPHORUS (BEAKER) (test code = 2.9 mg/dL 2.3-4.7 604) Collection Supervisor ID - [id number] 12:44:20 Test Item Value Reference Range Interpretation Comments POTASSIUM (BEAKER) (test code = 3.8 meq/L 3.5-5.1 379) Collection Supervisor ID - ADMINBLOOD GAS, [id number] 11:49:06 Test Item Value Reference Range Interpretation [...] (BEAKER) (test code = 1819) 80.0 POCT-GLUCOSE [id number] 11:22:18 Test Item Value Reference Range Interpretation Comments POC-GLUCOSE METER 113 mg/dL 70-110 H : TESTED A T [facility] 6720 (BEAKER) (test code = [facility] [place], 1538) 10539: Collection Supervisor/Techni carroll ID = [id number] for Damián jacobs (contract)Consuelo HEPATIC FUNCTION [id number] 08:12:22 Test Item Value Reference Range Interpretation [...] code = 72 U/L 6-55 H 347) Collection Supervisor ID - [id number] 06:57:19 Test Item Value Reference Range Interpretation Comments PHOSPHORUS (BEAKER) (test code = 1.5 mg/dL 2.3-4.7 LL 604) Collection Supervisor ID - ALECIA WPOCT-GLUCOSE [id number] 06:36:08 Test Item Value Reference Range Interpretation Comments POC-GLUCOSE METER 112 mg/dL 70-110 H : TESTED A T [facility] 6720 (BEAKER) (test code = [facility], 1538) 14537: Collection Supervisor/Techni carroll ID = [id number] for CRUZITOAUSTIN LEON BASIC METABOLIC [id number] 06:08:44 Test Item Value Reference Range Interpretation [...] not appl icable for dialysis patien ts Collection Supervisor ID - ALECIA [id number] 06:08:44 Test Item Value Reference Range Interpretation Comments MAGNESIUM (BEAKER) (test code = 1.9 mg/dL 1.6-2.6 627) Collection Supervisor ID Aubrey ALSTON WCBC W/PLT COUNT & AUTO [id number] 05:41:35 Test Item Value Reference Range Interpretation [...] (BEAKER) (test code = 2801) BLOOD GAS, [id number] 05:08:43 Test Item Value Reference Range Interpretation [...] 1819) 50.0 RAD, CHEST, 1 VIEW, NON [id number] 02:57:00Reason for exam:->ett and CT placementCOMM[facility] : 1985 Sex: MFINAL REPORT [...] contours. Additional findings: None. Signed: Velvet Vargas Verified Date/Time: 03/12/2022 02:57:07 POCT-GLUCOSE [id number] 01:43:42 Test Item Value Reference Range Interpretation Comments POC-GLUCOSE METER 118 mg/dL 70-110 H : TESTED A T [facility] 6720 (BEAKER) (test code = [place], 1538) 48916: Collection Supervisor/Techni carroll ID = [id number] for Ez enwugo Carola CBC W/PLT COUNT & AUTO [id number] 18:20:34 Test Item Value Reference Range Interpretation [...] (test code = 2801) MR, BRAIN, WITHOUT [id number] 17:45:00Unlisted Reason for Exam - Click Yes and Enter Reason Below->No [facility] : 1985 Sex: MFINAL REPORT [...] La MDReport Verified Date/Time: 03/11/2022 17:45:47 POCT-GLUCOSE [id number] 17:35:44 Test Item Value Reference Range Interpretation Comments POC-GLUCOSE METER 107 mg/dL 70-110 : TESTED A T [facility] 6720 (DORIS) (test code = [place], 1538) 01082: Collection Supervisor/Techni carroll ID = [id number] for To reynaldo (contract), Consuelo squires Limited 2D [id number] 14:13:46Ejection FractionSLEH ECHO HEARTLAB [facility]Lim[facility]D [id number] 14:13:46Ejection FractionSLEH ECHO HEARTLAB [facility] [id number] 11:23:44 Test Item Value Reference Range Interpretation Comments POC-GLUCOSE METER 125 mg/dL 70-110 H : TESTED A T [facility]20 (BEAKER) (test code = [facility], 1538) 17428: Collection Supervisor/Techni carroll ID = [id number] for To reynaldo (contract), Consuelo squires MRSA [id number] 11:13:54 Test Item Value Reference Range Interpretation Comments CULTURE (BEAKER) (test code No MRSA isolated = 1095) HEPATIC FUNCTION [id number] 10:59:43 Test Item Value Reference Range Interpretation Comments TOTAL PROTEIN (BEAKER) (test code = 5.6 gm/dL 6.0-8.3 L [...] code = 95 U/L 6-55 H 347) Collection Supervisor ID - EMMANUELSPUTUM CULTURE + GRAM [id number] 10:28:41 Test Item Value Reference Range Interpretation Comments CULTURE (BEAKER) 4+ Normal respiratory (test code = 1095) stacy present GRAM STAIN RESULT 1+ WBCs (BEAKER) (test code = 1123) GRAM STAIN RESULT 0-5 epithelial cells (BEAKER) (test code = 41622) GRAM STAIN RESULT 1+ yeast (BEAKER) (test code = 26057) GRAM STAIN RESULT 1+ gram variable rods (BEAKER) (test code = 816613) [id number] 06:35:30 Test Item Value Reference Range Interpretation Comments MAGNESIUM (BEAKER) (test code = 1.7 mg/dL 1.6-2.6 627) Collection Supervisor ID Aubrey ALSTON [id number] 06:35:30 Test Item Value Reference Range Interpretation Comments PHOSPHORUS (BEAKER) (test code = 1.8 mg/dL 2.3-4.7 L 604) Collection Supervisor ID - ALECIA WBASIC METABOLIC [id number] 06:35:29 Test Item Value Reference Range Interpretation [...] not appl icable for dialysis patien ts Collection Supervisor ID Aubrey ALSTON WCBC W/PLT COUNT & AUTO [id number] 06:16:58 Test Item Value Reference Range Interpretation Comments WHITE BLOOD CELL COUNT Possi ble contamination (BEAKER) (test code = notifi ed to 775) B.no.269085.Thi s is a corrected resul t. Previous result was 12.4 K/ L on 03/11/20 at 0556 TRAVEL PHYSICAL THERAPIST RED BLOOD CELL COUNT Possibl e contamination (BEAKER) (test code = notifi ed to 761) B.no.152086.Thi s is a corrected resul t. Previous result was 3.79 M/ L on 03/11/20 at 0556 TRAVEL PHYSICAL THERAPIST HEMOGLOBIN (BEAKER) Possible contamination (test code = 410) notified t o B.no.495173.Thi s is a corrected resul t. Previous result was 11.1 GM/DL on at 0556 TRAVEL PHYSICAL THERAPIST HEMATOCRIT (BEAKER) Possible contamination (test code = 411) notified t o B.no.502966.Thi s is a corrected resul t. Previous result was 32.8 % on 03/11/2022 at 0556 TRAVEL PHYSICAL THERAPIST MEAN CORPUSCULAR VOLUME Poss ible contamination (BEAKER) (test code = notifi ed to 753) B.no.258029.Thi s is a corrected resul t. Previous result was 87 fL on 03/11/2022 at 0556 TRAVEL PHYSICAL THERAPIST MEAN CORPUSCULAR Possible co ntamination HEMOGLOBIN (BEAKER) notified to (test code = 751) B.no.96266 5.This is a corrected resul t. Previous result was 29.3 pg on 03/11/2022 at 0556 TRAVEL PHYSICAL THERAPIST MEAN CORPUSCULAR Possible co ntamination HEMOGLOBIN CONC (BEAKER) not ified to (test code = 752) B.no.25429 5.This is a corrected resul t. Previous result was 33.8 GM/DL on 022 at 0556 TRAVEL PHYSICAL THERAPIST RED CELL DISTRIBUTION Possib le contamination WIDTH (BEAKER) (test notifie d to code = 412) B.no.348436.Thi s is a corrected resul t. Previous result was 14.8 % on 03/11/2022 at 0556 TRAVEL PHYSICAL THERAPIST PLATELET COUNT (BEAKER) Poss ible contamination (test code = 756) notified t o B.no.494966.Thi s is a corrected resul t. Previous result was 157 K/CU MM on 03/11 at 0556 TRAVEL PHYSICAL THERAPIST MEAN PLATELET VOLUME Possibl e contamination (BEAKER) (test code = notifi ed to 754) B.no.946722.Thi s is a corrected resul t. Previous result was 10.7 fL on 03/11/2022 at 0556 TRAVEL PHYSICAL THERAPIST NUCLEATED RED BLOOD Possible contamination CELLS (BEAKER) (test notifie d to code = 413) B.no.887970.Thi s is a corrected resul t. Previous result was 0 /100 WBC on 03/11/2022 at 0556 TRAVEL PHYSICAL THERAPIST BLOOD GAS, [id number] 06:07:30 Test Item Value Reference Range Interpretation [...] (BEAKER) (test code = 1819) 75.0 POCT-GLUCOSE [id number] 01:31:40 Test Item Value Reference Range Interpretation Comments POC-GLUCOSE METER 138 mg/dL 70-110 H : TESTED A T [facility] 6720 (BEAKER) (test code = [place], 1538) 63208: Collection Supervisor/Techni carroll ID = [id number] for Ib arra, [place] CT, BRAIN, WITHOUT [id number] 22:49:00 [facility] 1985 Sex: MFINAL REPORT EXAM: [...] advanced for patient's age. Signed: Velvet Vargas [facility] Verified Date/Time: 03/10/2022 22:49:59 CALCIUM, [id number] 20:44:25 Test Item Value Reference Range Interpretation Comments CALCIUM IONIZED (BEAKER) (test 1.05 mmol/L 1.12-1.27 L code = 698) PH, BLOOD (BEAKER) (test code = 7.50 1810) LACTIC ACID, [id number] 17:11:26 Test Item Value Reference Range Interpretation Comments LACTATE BLOOD ARTERIAL (2) 2.0 mmol/L 0.5-2.2 (BEAKER) (test code = 2874) Collection Supervisor ID - ardyan bBLOOD GAS, [id number] 16:14:19 Test Item Value Reference Range Interpretation [...] (BEAKER) (test code = 1819) 21.0 POCT-GLUCOSE [id number] 16:09:29 Test Item Value Reference Range Interpretation Comments POC-GLUCOSE METER 144 mg/dL 70-110 H : TESTED A T [facility] 6720 (BEAKER) (test code = [facility], 1538) 70927: Collection Supervisor/Techni carroll ID = [id number] for Damián jacobs (contract)Consuelo B-TYPE NATRIURETIC FACTOR (BNP)2022-03-10 13:04:31 Test Item Value Reference Range Interpretation Comments B-TYPE NATRIURETIC PEPTIDE (BEAKER) 106 pg/mL 0-100 H (test code = 700) Collection Supervisor ID - adryan bBASIC METABOLIC [id number] 12:58:26 Test Item Value Reference Range Interpretation [...] not appl icable for dialysis patien ts Collection Supervisor ID - adryan bVANCOMYCIN LEVEL, [id number] 12:03:35 Test Item Value Reference Range Interpretation Comments VANCOMYCIN TROUGH (RADHAAKER) (test 24.7 ug/mL 10.0-20.0 H code = 522) Collection Supervisor ID - adryan bPOCT-GLUCOSE [id number] 11:33:27 Test Item Value Reference Range Interpretation Comments POC-GLUCOSE METER 111 mg/dL 70-110 H : TESTED A T [facility] 6720 (BEAKER) (test code = [facility], 1538) [address]: Collection Supervisor/Techni carroll ID = [id number] for To reynaldo (contract)Consuelo RAD, ABDOMEN/KUB, 1 VIEW [id number] 09:51:00Reason for exam:->Feeding [facility] : 1985 Sex: MFINAL REPORT [...] of the duodenal bulb. Signed: Stevie Minor Verified Date/Time: 03/10/2022 09:51:14 RAD, CHEST, 1 VIEW, NON [id number] 09:22:00Reason for exam:->ettShould this be performed at the bedside?->Yes [facility] 1985 Sex: MFINAL REPORT CHEST ONE [...] cardiac shadow is partially obscured. Signed: Stevie Minor Verified Date/Time: 03/10/2022 09:22:51 IC ACID, [id number] 09:14:27 Test Item Value Reference Range Interpretation Comments LACTATE BLOOD 2.4 mmol/L 0.5-2.2 H Specimen sligh tly ARTERIAL (2) (BEAKER) hemoly zed (test code = 2874) Collection Supervisor ID - adryan bBLOOD GAS, [id number] 09:07:32 Test Item Value Reference Range Interpretation [...] 1819) 100.0 CBC W/PLT COUNT & AUTO [id number] 07:10:25 Test Item Value Reference Range Interpretation [...] CONCENTRATION Decreased (CELLAVISION)(BEAKER) (test code = 3438) Collection Supervisor ID - [id number] ID - Charles Dereko-onUser comments: Slide comments: BLOOD GAS, [id number] 07:09:00 Test Item Value Reference Range Interpretation [...] (test code = 1819) 100.0 BLOOD GAS, [id number] 04:14:34 Test Item Value Reference Range Interpretation [...] TEMPERATURE (BEAKER) 37.0 (test code = 1818) [id number] 03:43:27 Test Item Value Reference Range Interpretation Comments PHOSPHORUS (BEAKER) 2.9 mg/dL 2.3-4.7 Specimen slightly (test code = 604) hemolyzed Collection Supervisor ID - ALECIA WBASIC METABOLIC [id number] 03:43:27 Test Item Value Reference Range Interpretation [...] not appl icable for dialysis patien ts Collection Supervisor ID - ALECIA [id number] 03:43:26 Test Item Value Reference Range Interpretation Comments MAGNESIUM (BEAKER) 1.5 mg/dL 1.6-2.6 L Specimen slightly (test code = 627) hemolyzed Collection Supervisor ID - ALECIA WLACTIC ACID, [id number] 03:37:04 Test Item Value Reference Range Interpretation Comments LACTATE BLOOD VENOUS 2.12 mmol/L 0.50-2.20 Specime n moderately (2) (BEAKER) (test hemolyzed code = 2872) Collection Supervisor ID - BSRAD, CHEST, 1 VIEW, NON [id number] 03:15:00Reason for exam:- >pneumothorax s/p chest tubeShould this be performed at the bedside?->Yes [facility] : 1985 Sex: MFINAL REPORT PORTABLE AP CHEST ORDERED AT 03/10/2022 2:48 AM HISTORY: Pneumothorax status post chest tube. COMPARISON: Chest radiograph 03/10/2022 IMPRESSION: Decrease in size of pneumothorax that has near completely resolved following chest tube placement. Extensive bilateral consolidation similar to the previous exam. No evidence of effusion. Signed: Amelia Good MDReport Verified Date/Time: 03/10/2022 03:15:54 RAD, CHEST, 1 VIEW, NON [id number] 02:09:00Reason for exam:->short of breathShould this be performed at the bedside?->Yes [facility] : 1985 Sex: MFINAL REPORT [...] findings: None. The findings werediscussed with nurse Dulce on 03/10/22 at the time of dictation who will relay them to the physician. Signed: Velvet Vargas MDReport Verified Date/Time: 03/10/2022 02:09:20 BLOOD GAS, [id number] 01:41:35 Test Item Value Reference Range Interpretation [...] (BEAKER) 37.0 (test code = 1818) CALCIUM, [id number] 01:41:34 Test Item Value Reference Range Interpretation Comments CALCIUM IONIZED (BEAKER) (test 1.10 mmol/L 1.12-1.27 L code = 698) PH, BLOOD (BEAKER) (test code = 7.32 1810) POCT-GLUCOSE [id number] 01:21:58 Test Item Value Reference Range Interpretation Comments POC-GLUCOSE METER 103 mg/dL 70-110 : TESTED A T [facility] 6720 (BEAKER) (test code = [facility], 1538) [address]: Collection Supervisor/Techni carroll ID = [id number] for BRIAN LOCO B-TYPE NATRIURETIC FACTOR (BNP)2022-03-09 20:37:23 Test Item Value Reference Range Interpretation Comments B-TYPE NATRIURETIC PEPTIDE (BEAKER) 41 pg/mL 0-100 (test code = 700) Collection Supervisor ID - BSHIGH SENSITIVITY TROPONIN [id number] 20:37:05 Test Item Value Reference Range Interpretation Comments HIGH SENSITIVITY < pg/ml See_Comment [Automated message] TROPONIN I (test code = The system which 6809580) generated this result transmitted ref erence range: <=35. Th e reference range was not used to interpr et this result as normal/abnormal . Collection Supervisor ID - BSThe SUPERVISOR MAJOR APPLIANCE ASSEMBLY STAT High Sensitivity Troponin-I results should be used in conjunctionwith other diagnostic information such as ECG, clinical observations and information, and patient symptoms to aid in the diagnosis of NM.BLOOD GAS, [id number] 18:19:41 Test Item Value Reference Range Interpretation [...] 1819) 80.0 RAD, CHEST, 1 VIEW, NON [id number] 18:10:00Reason for exam:->SHORTNESS OF BREATHReason for exam:->GENERALIZED WEAKNESS, NOT ASSOCIATED WITH EXTREMITIESShould this be performed at the bedside?->Yes [facility] 1985 Sex: MFINAL REPORT TECHNIQUE: Frontal view of the chest. INDICATION: SHORTNESS OF BREATHGENERALIZED WEAKNESS, NOT ASSOCIATED WITH EXTREMITIES. COMPARISON: 03/08/2022. FINDINGS: LINES/TUBES: None. HEART AND MEDIASTINUM: Cardiomediastinal contour is stable. LUNGS: Dense perihilar consolidativeopacities, increased compared to the prior examination. PLEURA: No pneumothorax. No significant pleur al effusion. SOFT TISSUES AND BONES: Levoconvex scoliosis of the thoracic spine. IMPRESSION:Dense perihilar consolidative opacities, increased compared to the prior examination and may be related to multifocal pneumonia, massive aspiration or less likely pulmonary edema. Signed: Jesse Sarmiento [facility] Verified Date/Time: 03/09/2022 18:10:51 URINALYSIS W/ REFLEX URINE [id number] 09:50:46 Test Item Value Reference Range Interpretation [...] /LPF 514) SOURCE(BEAKER) (test code = 2795) Collection Supervisor ID - [auto]Collection Supervisor ID - techRespiratory Panel [id number] 09:04:45 Test Item Value Reference Interpretation Comments Range Human Metapneumovirus Not detected Not detected, (test code = 27890-2) Equivocal Rhinovirus (test code Not detected Not detected, = 05638-2) Equivocal INFLUENZA A (NO Please refer to SUBTYPE) (test code = 22M-33 4F4377 10375-9) for results. Previous SARS/FLU/RSV result within 24 hours. Please recollect after 24 hours from previous collection time. Influenza A subtype H1 (test code = 10701-6) Influenza A Subtype H3 (test code = 30075-5) Influenza A Subtype H1-2009 (test code = 68129-2) Influenza B (test Please ref er to code = 63313-8) [id number] for results. Respiratory Syncytial Please refer to Virus (test code = 22M-336R0 019 81945-6) for results. Parainfluenza Virus 1 Not detected Not detected, (test code = 99591-1) Equivocal Parainfluenza Virus 2 Not detected Not detected, (test code = 17830-7) Equivocal Parainfluenza virus 3 Not detected Not detected, (test code = 32173-2) Equivocal Parainfluenza Virus 4 Not detected Not detected, (test code = 42220-2) Equivocal Adenovirus (test code Not detected Not detected, = 62356-2) Equivocal Coronavirus 229E Not detected Not detected, (test code = 60118-7) Equivocal Coronavirus HKU1 Not detected Not detected, (test code = 12902-0) Equivocal Coronavirus NL63 Not detected Not detected, (test code = 40515-7) Equivocal Coronavirus OC43 Not detected Not detected, (test code = 10956-9) Equivocal Bordetella Pertussis Not detected Not detected, (test code = 47907-7) Equivocal Chlamydophila Not detected Not detected, Pneumoniae (test code Equivocal = 17587-0) Mycoplasma Pneumoniae Not detected Not detected, (test code = 39928-1) Equivocal Severe Acute Please refer to Rseutexenyi-GlE-7 22M-336R00 19 (test code = 17413-8) for re sults. Bordtella Not detected Not detected, Parapertussis (test Equivocal code = 41118-2) CHRISTINA (test code = CHRISTINA) Other viruses and bacteria not targeted by this PCR panel cannot be excluded; therefore clinical correlation and follow up of serology, culture results, and other molecular studies is required. The results are not intended to be used as the sole means for clinical diagnosis or patient management decisions. This sample was tested at the [facility] Molecular Diagnostics Laboratory using the LiveProfileArray Respiratory Panel. It is FDA cleared and has been verified and approved by the [facility] Molecular Diagnostics [facility] for clinical use on nasopharyngeal swab specimens. The performance of the FilmArray RP has not been established in individuals who received influenza vaccine. Recent administration of a nasal influenza vaccine may cause false positive results for Influenza A and/orInfluenza B. [facility] [id number] 09:04:45 Test Item Value Reference Interpretation Comments Range Human Metapneumovirus Not detected Not detected, (test code = 39445-3) Equivocal Rhinovirus (test code Not detected Not detected, = 35671-6) Equivocal INFLUENZA A (NO Please refer to SUBTYPE) (test code = 22M-33 9W6740 65230-0) for results. Previous SARS/FLU/RSV result within 24 hours. Please recollect after 24 hours from previous collection time. Influenza A subtype H1 (test code = 31747-4) Influenza A Subtype H3 (test code = 53674-9) Influenza A Subtype H1-2009 (test code = 98414-7) Influenza B (test Please ref er to code = 66710-0) [id number] for results. Respiratory Syncytial Please refer to Virus (test code = 22M-336R0 019 56094-0) for results. Parainfluenza Virus 1 Not detected Not detected, (test code = 68155-4) Equivocal Parainfluenza Virus 2 Not detected Not detected, (test code = 36647-0) Equivocal Parainfluenza virus 3 Not detected Not detected, (test code = 40500-9) Equivocal Parainfluenza Virus 4 Not detected Not detected, (test code = 54918-1) Equivocal Adenovirus (test code Not detected Not detected, = 12642-8) Equivocal Coronavirus 229E Not detected Not detected, (test code = 72118-8) Equivocal Coronavirus HKU1 Not detected Not detected, (test code = 03563-9) Equivocal Coronavirus NL63 Not detected Not detected, (test code = 05796-2) Equivocal Coronavirus OC43 Not detected Not detected, (test code = 84986-8) Equivocal Bordetella Pertussis Not detected Not detected, (test code = 00505-4) Equivocal Chlamydophila Not detected Not detected, Pneumoniae (test code Equivocal = 16336-9) Mycoplasma Pneumoniae Not detected Not detected, (test code = 62311-9) Equivocal Severe Acute Please refer to Ggfrgbudndx-HkB-3 22-336R00 19 (test code = 38081-3) for re sults. Bordtella Not detected Not detected, Parapertussis (test Equivocal code = 56373-8) CHRISTINA (test code = CHRISTINA) Other viruses and bacteria not targeted by this PCR panel cannot be excluded; therefore clinical correlation and follow up of serology, culture results, and other molecular studies is required. The results are not intended to be used as the sole means for clinical diagnosis or patient management decisions. This sample was tested at the [facility] Molecular Diagnostics Laboratory using the LiveProfileArray Respiratory Panel. It is FDA cleared and has been verified and approved by the [facility] Molecular Diagnostics Laboratory for clinical use on nasopharyngeal swab specimens. The performance of the FilmArray RP has not been established in individuals who received influenza vaccine. Recent administration of a nasal influenza vaccine may cause false positive results for Influenza A and/orInfluenza B. [facility]RES[facility] [id number] 09:04:45 Test Item Value Reference Range Interpretation Comments HUMAN METAPNEUMOVIRUS Not detected Not detected, (BEAKER) (test code = Equivocal 2683) RHINOVIRUS (BEAKER) Not detected Not detected, (test code = 2684) Equivocal INFLUENZA A (BEAKER) Please refer to (test code = 2685) 22-336R0 019 for results. Previo us SARS/FLU/RSV result [...] Please refer to (test code = 2688) 22-336R0 019 for results. RESPIRATORY SYNCYTIAL Please refer to VIRUS (BEAKER) (test 22-336 R0019 for code = 3199) results. PARAINFLUENZA [...] 3207) SEVERE ACUTE Please refer to RESPIRATORY [facility]-151Q0287 fo r FFKVZING-MITWTAZTGUK-6 resul ts. (test code = 2633166) BORDETELLA Not detected Not detected, PARAPERTUSSIS (BKR) Equivocal (test code = 2712890) Other viruses and bacteria not targeted by this PCR panel cannot be excluded; therefore clinical correlation and follow up of serology, culture results, and other molecular studies is required. The results are not intended to be used as the sole means for clinical diagnosis or patient management decisions. This sample was tested at the [facility] Molecular Diagnostics Laboratory using the ShopWell Respiratory Panel. It is FDA cleared and has been verified and approved by the [facility] Molecular Diagnostics Laboratory for clinical use on nasopharyngeal swab specimens.The performance of the FilmArrayRP has not been established in individuals who received influenza vaccine. Recent administration of a nasal influenza vaccine may cause false positive results for Influenza A and/orInfluenza B.[id number] 08:46:57 Test Item Value Reference Range Interpretation Comments PROCALCITONIN (BEAKER) (test code 1.67 ng/mL <0.05 H = 3036) SEPSIS RISK (ng/mL)Low: 0.05-0.50Intermediate: 0.51-2.00High: >=2.01LACTIC ACID, [id number] 08:17:45 Test Item Value Reference Range Interpretation Comments LACTATE BLOOD VENOUS (2) (BEAKER) 1.60 mmol/L 0.50-2.20 (test code = 2872) Collection Supervisor ID - UMANG(CELLAVISION MANUAL DIFF)2022-03-09 07:08:03 Test [...] CONCENTRATION Decreased (CELLAVISION)(BEAKER) (test code = 3438) Collection Supervisor ID - [id number] ID - adryan Heck comments: Slide comments:CBC W/PLT COUNT & AUTO [id number] 07:08:02 Test Item Value Reference Range Interpretation [...] CELLS (BEAKER) (test code = 413) SARS-COV2/INFLUENZA/RSV [id number] 05:47:36 Test Item Value Reference Range Interpretation Comments SARS-COV2/RT-PCR Negative Negative The SARS-Co V-2 target (test code = nucleic acids a re not 9857607) detected in thi s specimen. Negat jeison [...] SARS-CoV-2 in a nasopharyngeal swab specimen colle caludio from individuals adan pected of COVID-19 by the [facility] ide. INFLUENZA A RT-PCR Negative Negative The Flu A target nucleic (test code = acids are not d etected in 8889721) this specimen. INFLUENZA B RT-PCR Negative Negative The Flu B target nucleic (test code = acids are not d etected in 19100513) this specimen. RSV RT-PCR (test Negative Negative The RSV tar get nucleic code = 2180456) acids are no t detected in this [...] of the Act.Fact Sheet for Healthcare Providers:https ://www.[employer] [place]/Documents/Xpert%20Xpress%20SARS%20CoV-2/Fact%20Sheets/302390 2%38OPLF-HSM-8%20HEALTHCARE%20PROVIDERS%20FACT%20SHEET.pdfFact Sheet for Healthcare Patients:https://www.[place]/Docum ents/Xpert%20Xpress%20SARS%20Cov-2/Fact%20Sheets/3023801%95LBIZ-PLJ-7%20PATIENT %20FACT%20SHEET.pdfBABAPTIST HEALTH CORBIN METABOLIC [id number] 04:46:49 Test Item Value Reference Range Interpretation [...] not appl icable for dialysis patien ts Collection Supervisor ID - NELLY [id number] 04:46:49 Test Item Value Reference Range Interpretation Comments MAGNESIUM (BEAKER) (test code = 1.5 mg/dL 1.6-2.6 L 627) Collection Supervisor ID - NELLY [id number] 04:46:49 Test Item Value Reference Range Interpretation Comments PHOSPHORUS (BEAKER) (test code = 2.7 mg/dL 2.3-4.7 604) Collection Supervisor ID - NELLY MLACTIC ACID, [id number] 02:13:10 Test Item Value Reference Range Interpretation Comments LACTATE BLOOD VENOUS 3.10 mmol/L 0.50-2.20 H Specime n slightly (2) (BEAKER) (test hemolyzed code = 9119) Collection Supervisor ID - NELLY [id number] 22:23:53 Test Item Value Reference Range Interpretation Comments PARTIAL THROMBOPLASTIN TIME 40.1 seconds 22.5-36.0 H (BEAKER) (test code = 760) PROTHROMBIN [id number] 22:22:55 Test Item Value Reference Range Interpretation Comments PROTIME (BEAKER) 15.3 seconds 11.9-14.2 H (test code = 759) INR (BEAKER) (test 1.28 See_Comment [Automat ed message] code = 370) The system Keep Me Certified generated this result transmitted ref erence range: <=5.90. The reference range was not used to int erpret this result as normal/abnormal . RECOMMENDED COUMADIN/WARFARIN INR THERAPY RANGESSTANDARD DOSE: 2.0 - 3.0 Includes: PROPHYLAXIS for venous thrombosis, systemic embolization; TREATMENT for venous thrombosis and/or pulmonary embolus.HIGH RISK: Target INR is 2.5-3.5 for patients with mechanical heart valves.LACTIC ACID, [id number] 22:19:23 Test Item Value Reference Range Interpretation Comments LACTATE BLOOD VENOUS 4.02 mmol/L 0.50-2.20 HH Specime n slightly (2) (BEAKER) (test hemolyzed code = 2872) Collection Supervisor ID - BS(CELLAVISION MANUAL DIFF)2022-03-08 21:37:07 Test [...] CONCENTRATION Decreased (CELLAVISION)(BEAKER) (test code = 3438) Collection Supervisor ID - [id number] ID - salma Metz comments: Slide comments:HIGH SENSITIVITY TROPONIN [id number] 21:23:44 Test Item Value Reference Range Interpretation Comments HIGH SENSITIVITY < pg/ml See_Comment [Automated message] TROPONIN I (test code = The system which 7858543) generated this result transmitted ref erence range: <=35. Th e reference range was not used to interpr et this result as normal/abnormal . Collection Supervisor ID - BSThe SUPERVISOR MAJOR APPLIANCE ASSEMBLY STAT High Sensitivity Troponin-I results should be used in conjunctionwith other diagnostic information such as ECG, clinical observations and information, and patient symptoms to aid in the diagnosis of NM.[id number] 21:16:47 Test Item Value Reference Range Interpretation Comments MAGNESIUM (BEAKER) 1.7 mg/dL 1.6-2.6 Specimen slightly (test code = 627) hemolyzed Collection Supervisor ID - BSBASIC METABOLIC [id number] 21:16:47 Test Item Value Reference Range Interpretation [...] not appl icable for dialysis patien ts Collection Supervisor ID - BSCBC W/PLT COUNT & AUTO [id number] 20:56:46 Test Item Value Reference Range Interpretation [...] = 413) RAD, CHEST, 1 VIEW, NON [id number] 20:45:00Reason for exam:->SHORTNESS OF BREATHReason for exam:->GENERALIZED WEAKNESS, NOT ASSOCIATED WITH EXTREMITIES [facility] 1985 Sex: MFINAL REPORT [...] by: Tin BATISTA 03/08/2022 08:45 PMMR, BRAIN, [id number] 10:20:00Unlisted Reason for Exam - Click Yes and Enter Reason Below->YesUnlisted Reason for Exam->seizuresAnesthesia:- >GeneralDoes the patient have an implanted electronic device?->No [facility] 1985 Sex: MFINAL REPORT [...] insult.3.Remote infarct left cerebellar hemisphere. Signed: Justin Cramerort Verified Date/Time: 11/25/2021 10:20:08 BASIC METABOLIC [id number] 13:32:56 Test Item Value Reference Range Interpretation [...] not appl icable for dialysis patien ts Collection Supervisor ID - NELLY MSARS-COV2/RT-PCR ([facility])2021-11-14 10:00:21 Test Item Value Reference Range Interpretation Comments SARS-COV2/RT-PCR (test Negative Not Detected, Negative, code = 1674026) See external report for linked test SARS-COV-2 PERFORMING LAB [facility] (test code = 9067584) Negative result for this test determines that [...] of the Act.Fact Sheet for Healthcare Prov iders:https://www.[employer]/sites/default/files/product/documents/Fact_Sheet_HC _Dnimrmzcw_Invb_WTPQ-WwN-9.pdfFact Sheet for Healthcare Patients:https://www.[employer]/sites/default/files/product/docume nts/Jzxn_Fmrkx_Zpckbwwi_Czcw_XIJI-BpA-3.pdfPerforming Laboratory:[facility] [place], [place] [address]levi kathrynHillister, [place] [address]UBUKBUELKOUUL METABOLIC [id number] 05:29:41 Test Item Value Reference Range Interpretation [...] G3b Moderately to s everely 30-44 G4 Sever ly decreased 15-29 G5 Kidney failure <15Repo rted eGFR is based on the CKD-EPI 2020 equation t hat does not use a race coefficientEsti mated GFR is not as accur ate as Creatinine [place] in predicting glom erular filtration rate . Estimated GFR is not appl icable for dialysis patien ts Collection Supervisor ID - PIAYA LCBC W/PLT COUNT & AUTO [id number] 04:35:32 Test Item Value Reference Range Interpretation [...] (test code = 2801) [place] MODIFIED BARIUM [id number] 20:02:36HISTORY: ?Cerebral biopsy. Tracheostomy. TECHNIQUE: Swallowing function [...] cordsinto the trachea, otherwise normal dysphagiogram study. [facility], Radiant Results Inft User - 13:03 PM [...] vocal cordsinto the trachea, otherwise normal [facility]phagiogram study.[facility] 04:09:46 Test Item Value Reference Range Interpretation Comments APPEARANCE (test code = Hazy Clear A 5931653434) COLOR (test code = Yellow Yellow 9246029503) PH (test code = 4.8-8.0 8306050404) SP GRAVITY (test code = 1.003-1.030 4968516784) GLU U QUAL (test code = Normal Normal 4229367023) BLOOD (test code = Negative Negative 5890121035) KETONES (test code = Negative Negative 5692478992) PROTEIN (test code = Negative Negative 2887-8) UROBILIN (test code = Normal Normal 7069965404) BILIRUBIN (test code = Negative Negative 4812252837) NITRITE (test code = Negative Negative 9187228372) LEUK MYRON (test code = Negative Negative 3566379628) RBC/HPF (test code = See_Comment [Autom ated message] 1765937557) The system Keep Me Certified generated this result transmitted ref erence range: 0 - 3 HP F. The reference range was not used to int erpret this result as normal/abnormal . WBC/HPF (test code = See_Comment [Autom ated message] 5409237751) The system Keep Me Certified generated this result transmitted ref erence range: 0 - 5 HP F. The reference range was not used to int erpret this result as normal/abnormal . BACTERIA (test code = Few Negative A 8247631190) Lab Interpretation (test Abnormal code = 33336-2) [facility]2021-[facility]-14 04:02:40 Test Item Value Reference Range Interpretation Comments PHENYTOIN (test code = 41.9 ug/mL 10.0-20.0 H 4431457772) CHRISTINA (test code = CHRISTINA) Toxic Range: ? 0-3 Months ? Greater than 14 ug/mL ? ? 3 Months - 150 Years ? ? Greater than 20 ug/mL Lab Interpretation (test Abnormal code = 58821-1) [facility]MAG[facility]2021-03-14 03:49:10 Test Item Value Reference Range Interpretation Comments MAGNESIUM (test code = 2692383026) 1.8 mg/dL 1.7-2.4 Lab Interpretation (test code = Normal 93106-3) [facility]. METABOLIC PANEL (72794)2020-06-19 03:48:50 Test Item Value Reference Range Interpretation Comments NA (test code = 132 mmol/L 135-145 L 1758319054) K (test code = 4.1 mmol/L 3.5-5.0 2657345272) CL (test code = 92 mmol/L 98-108 L 4644543249) CO2 TOTAL (test code = 32 mmol/L 23-31 H 9627870290) AGAP (test code = 2-16 4887765024) BUN (test code = 11 mg/dL 7-23 7801621741) GLUCOSE (test code = 111 mg/dL 70-110 H 0025752131) CREATININE (test code = 0.33 mg/dL 0.60-1.25 L 8451296066) TOTAL BILI (test code = 0.3 mg/dL 0.1-1.5 5112580027) CALCIUM (test code = 9.1 mg/dL 8.6-10.6 4974124631) T PROTEIN (test code = 6.3 g/dL 6.3-8.2 0390885458) ALBUMIN (test code = 3.8 g/dL 3.5-5.0 7666612892) ALK PHOS (test code = 109 U/L 34-122 [id number]) ALTv (test code = 34 U/L 5-50 1742-6) AST(SGOT) (test code = 25 U/L 13-40 8609850259) eGFR Calculation mL/min/1.73m2 (Non-) (test code = 0123543168) eGFR Calculation mL/min/1.73m2 () (test code = 4143764260) CHRISTINA (test code = CHRISTINA) Association of [...] tests). Lab Interpretation Abnormal (test code = 77827-4) [facility]30 Test Item Value Reference Range Interpretation Comments LIPASE (test code = 5919264511) 64 U/L 0-220 Lab Interpretation (test code = Normal 43238-3) [facility] WITH [id number] 03:09:49 Test Item Value Reference Range Interpretation Comments WBC (test code = See_Comment [Automated 6690-2) message] The sy stem which generated this result transmitted reference range : 4.20 - 10.70 10*3/?L. The reference range was not used to interpret this result as normal/abnormal . RBC (test code = See_Comment [Automated 789-8) message] The sy stem which generated this [...] RDW-SD (test code = 38.6 fL 38.5-51.6 58949-5) RDW-CV (test code = 12.0 % 12.1-15.4 L 788-0) PLT (test code = See_Comment H [Automated 777-3) message] The sy stem which generated this result transmitted reference range : 150 - 328 10*3/ ?L. The reference r subhash was not used to interpret this result as normal/abnormal . MPV (test code = 8.8 fL 9.8-13.0 L 56413-5) NRBC/100 WBC (test See_Comment [Automat ed code = 0177389905) message] The system which generated this result transmitted reference range : 0.0 - 10.0 /100 WBCs. The refer ence range was not u sed to interpret th is result as normal/abnormal . NRBC x10^3 (test code <0.01 See_Comment [Auto mated = 5529352779) message] The s [employer] which generated this result transmitted reference range : 10*3/?L. The reference range was not used to interpret this result as normal/abnormal . GRAN MAT (NEUT) % 67.1 % (test code = 770-8) IMM GRAN % (test code 0.70 % = 1469471583) LYMPH % (test code = 19.2 % 736-9) MONO % (test code = 10.2 % 5905-5) EOS % (test code = 1.8 % 713-8) BASO % (test code = 1.0 % 706-2) GRAN MAT x10^3(ANC) 5.62 10*3/uL 1.99-6.95 (test code = 3889107617) IMM GRAN x10^3 (test 0.06 10*3/uL 0.00-0.06 code = 6620605073) LYMPH x10^3 (test code 1.61 10*3/uL 1.09-3.23 = 731-0) MONO x10^3 (test code 0.85 10*3/uL 0.36-1.02 = 742-7) EOS x10^3 (test code = 0.15 10*3/uL 0.06-0.53 711-2) BASO x10^3 (test code 0.08 10*3/uL 0.01-0.09 = 704-7) Lab Interpretation Abnormal (test code = 77411-8) [facility] Whole [id number] 02:52:00 Test Item Value Reference Range Interpretation Comments LACTIC ACID (test code = 2.17 mmol/L 0.50-2.20 1552447302) Lab Interpretation (test code = Normal 31541-4) [facility] P[facility] W [id number] 19:20:19CT Abdomen and Pelvis with intravenous contrast. [...] in the right lung base. No pleuraleffusion. [facility], Radiant Results Inft User - 06/09/2020 1:21 [...] particularly in the right lung base. No pleuraleffusion.[facility]IN[facility]IS20[facility] 19:16:00 Test Item Value Reference Range Interpretation Comments APPEARANCE (test code = Hazy Clear A 3670389674) COLOR (test code = Yellow Yellow 8146157834) PH (test code = 4.8-8.0 3486010600) SP GRAVITY (test code = 1.003-1.030 3784046834) GLU U QUAL (test code = Normal Normal 9275038028) BLOOD (test code = Negative Negative 8753471013) KETONES (test code = Negative Negative 3191287946) PROTEIN (test code = Negative Negative 2887-8) UROBILIN (test code = Normal Normal 5137581059) BILIRUBIN (test code = Negative Negative 7987641018) NITRITE (test code = Negative Negative 2830965482) LEUK MYRON (test code = Negative Negative 5215424202) RBC/HPF (test code = See_Comment [Autom ated message] 9893085686) The system [employer] generated this result transmitted ref erence range: 0 - 3 HP F. The reference range was not used to int erpret this result as normal/abnormal . WBC/HPF (test code = See_Comment [Autom ated message] 3941004819) The system [employer] generated this result transmitted ref erence range: 0 - 5 HP F. The reference range was not used to int erpret this result as normal/abnormal . BACTERIA (test code = Negative Negative 2354408902) MUCOUS (test code = Slight Negative LPF A 0199379701) Lab Interpretation (test Abnormal code = 38986-5) [facility] (NA, K, CL, CO2, GLUCOSE, BUN, CREATININE, CA)2020-06-09 18:15:00 Test Item Value Reference Range Interpretation Comments NA (test code = 134 mmol/L 135-145 L 0553401409) K (test code = 4.1 mmol/L 3.5-5 2794222999) CL (test code = 96 mmol/L 98-108 L 9928478530) CO2 TOTAL (test code = 30 mmol/L 23-31 1379469689) AGAP (test code = 2-16 3292037233) BUN (test code = 11 mg/dL 7-23 9382229624) GLUCOSE (test code = 144 mg/dL 70-110 H 3544410438) CREATININE (test code = 0.37 mg/dL 0.6-1.25 L 5626716738) CALCIUM (test code = 9.6 mg/dL 8.6-10.6 0637387255) eGFR Calculation mL/min/1.73m2 (Non-) (test code = 5565378996) eGFR Calculation mL/min/1.73m2 () (test code = 1869870969) CHRISTINA (test code = CHRISTINA) Association of [...] tests). Lab Interpretation Abnormal (test code = 28201-2) [facility] WITH [id number] 18:00:00 Test Item Value Reference Range Interpretation Comments WBC (test code = See_Comment [Automated 6690-2) message] The sy stem which generated this result transmitted reference range : 4.20 - 10.70 10*3/?L. The reference range was not used to interpret this result as normal/abnormal . RBC (test code = See_Comment L [Automated 789-8) message] The sy stem which generated this [...] RDW-SD (test code = 42.3 fL 38.5-51.6 47576-6) RDW-CV (test code = 12.8 % 12.1-15.4 788-0) PLT (test code = See_Comment H [Automated 777-3) message] The sy stem which generated this result transmitted reference range : 150 - 328 10*3/ ?L. The reference r subhash was not used to interpret this result as normal/abnormal . MPV (test code = 8.5 fL 9.8-13 L 39654-8) NRBC/100 WBC (test See_Comment [Automat ed code = 8051083459) message] The system which generated this result transmitted reference range : 0.0 - 10.0 /100 WBCs. The refer ence range was not u sed to interpret th is result as normal/abnormal . NRBC x10^3 (test code <0.01 See_Comment [Auto mated = 5034532537) message] The s ystem which generated this result transmitted reference range : 10*3/?L. The reference range was not used to interpret this result as normal/abnormal . GRAN MAT (NEUT) % 78.9 % (test code = 770-8) IMM GRAN % (test code 0.90 % = 0963019458) LYMPH % (test code = 12.9 % 736-9) MONO % (test code = 6.2 % 5905-5) EOS % (test code = 0.3 % 713-8) BASO % (test code = 0.8 % 706-2) GRAN MAT x10^3(ANC) 8.09 10*3/uL 1.99-6.95 H (test code = 7793855153) IMM GRAN x10^3 (test 0.09 10*3/uL 0-0.06 H code = 3528517615) LYMPH x10^3 (test code 1.32 10*3/uL 1.09-3.23 = 731-0) MONO x10^3 (test code 0.64 10*3/uL 0.36-1.02 = 742-7) EOS x10^3 (test code = 0.03 10*3/uL 0.06-0.53 L 711-2) BASO x10^3 (test code 0.08 10*3/uL 0.01-0.09 = 704-7) Lab Interpretation Abnormal (test code = 29518-7) [facility] [id number] 19:40:00 Test Item Value Reference Range Interpretation Comments GLUCOMETER (test code = 125 mg/dL 70-100 H Mete r ID: [facility]) [id number] tor: 4496 ZOE LOPEZ GLUCOMETER GLUCOSE- LAB USE [id number] 15:42:00 Test Item Value Reference Range Interpretation Comments GLUCOMETER (test code = 128 mg/dL 70-100 H Mete r ID: [facility]) [id number] tor: 34996 MARVIA CR OSWELL GLUCOMETER GLUCOSE- LAB USE [id number] 11:24:00 Test Item Value Reference Range Interpretation Comments GLUCOMETER (test code = 135 mg/dL 70-100 H Mete r ID: [facility]) [id number] tor: 29416 MARVIA CR OSWELL GLUCOMETER GLUCOSE- LAB USE [id number] 07:14:00 Test Item Value Reference Range Interpretation Comments GLUCOMETER (test code 130 mg/dL 70-100 H CLEANE D METERMeter ID: = GMG) [id number] tor: 4496 ZOE LOPEZ PRO TIME AND [id number] 05:39:00 Test Item Value Reference Range Interpretation [...] Heparin. Order Code is ANTI-XA COMPREHENSIVE METABOLIC [id number] 05:33:00 Test Item Value Reference Range Interpretation [...] as normal/abnormal . GFR 182 See_Comment [Automated KUWAITI (test mL/min/1.73m\\S\\2 message] The code = GFRAA) [...] = RBCMOR) NORMAL GLUCOMETER GLUCOSE- LAB USE [id number] 00:55:00 Test Item Value Reference Range Interpretation Comments GLUCOMETER (test code = 121 mg/dL 70-100 H Mete r ID: GMG) [id number] tor: 4496 ZOE LOPEZ GLUCOMETER GLUCOSE- LAB USE [id number] 21:17:00 Test Item Value Reference Range Interpretation Comments GLUCOMETER (test code = 115 mg/dL 70-100 H Mete r ID: GMG) [id number] tor: 4496 ZOE LOPEZ GLUCOMETER GLUCOSE- LAB USE [id number] 16:46:00 Test Item Value Reference Range Interpretation Comments GLUCOMETER (test code = 134 mg/dL 70-100 H Mete r ID: GMG) [id number] tor: 9358 KEY MARTIN GLUCOMETER GLUCOSE- LAB USE [id number] 12:37:00 Test Item Value Reference Range Interpretation Comments GLUCOMETER (test code = 116 mg/dL 70-100 H Mete r ID: GMG) [id number] tor: 9174 MATT TAVERA GSILA COMPREHENSIVE METABOLIC [id number] 06:20:00 Test Item Value Reference Range Interpretation [...] as normal/abnormal . GFR 177 See_Comment [Automated KUWAITI (test mL/min/1.73m\\S\\2 message] The code = GFRAA) [...] = RBCMOR) NORMAL GLUCOMETER GLUCOSE- LAB USE [id number] 04:13:00 Test Item Value Reference Range Interpretation Comments GLUCOMETER (test code 130 mg/dL 70-100 H CLEANE D METERMeter ID: = GMG) [id number] tor: 72426 [facility]SE- LAB USE [id number] 23:31:00 Test Item Value Reference Range Interpretation Comments GLUCOMETER (test code 112 mg/dL 70-100 H CLEANE D METERMeter ID: = GMG) [id number] tor: 50103 [facility] GLU[facility] GLU[facility]SE- LAB USE [id number] 19:31:00 Test Item Value Reference Range Interpretation Comments GLUCOMETER (test code 125 mg/dL 70-100 H CLEANE D METERMeter ID: = GMG) [id number] tor: 94115 [facility] [employer] GLUCOMETER GLUCOSE- LAB USE [id number] 15:17:00 Test Item Value Reference Range Interpretation Comments GLUCOMETER (test code = 127 mg/dL 70-100 H Mete r ID: GMG) [id number] tor: 72099 AZAEL S CHMITZ GLUCOMETER GLUCOSE- LAB USE [id number] 11:29:00 Test Item Value Reference Range Interpretation Comments GLUCOMETER (test code = 146 mg/dL 70-100 H Mete r ID: GMG) [id number] tor: 96246 AZAEL S CHMITZ CBC (INCLUDES AUTOMATED DIFFERENTIAL)2020-06-05 [...] code = RBCMOR) NORMAL PRO TIME AND [id number] 06:47:00 Test Item Value Reference Range Interpretation [...] Heparin. Order Code is ANTI-XA COMPREHENSIVE METABOLIC [id number] 06:42:00 Test Item Value Reference Range Interpretation [...] as normal/abnormal . GFR 183 See_Comment [Automated KUWAITI (test mL/min/1.73m\\S\\2 message] The code = GFRAA) [...] as normal/abnormal . GLUCOMETER GLUCOSE- LAB USE [id number] 05:52:00 Test Item Value Reference Range Interpretation Comments GLUCOMETER (test code 139 mg/dL 70-100 H CLEANE D METERMeter ID: = GMG) [id number] tor: 3440 ROJ DEVARU BUSCH GLUCOMETER GLUCOSE- LAB USE [id number] 00:13:00 Test Item Value Reference Range Interpretation Comments GLUCOMETER (test code 138 mg/dL 70-100 H CLEANE D METERMeter ID: = GMG) [id number] tor: 3440 ROJ DEVARU BUSCH GLUCOMETER GLUCOSE- LAB USE [id number] 19:26:00 Test Item Value Reference Range Interpretation Comments GLUCOMETER (test code = 123 mg/dL 70-100 H Mete r ID: GMG) [id number] tor: 3440 ROJ DEVARU BUSCH GLUCOMETER GLUCOSE- LAB USE [id number] 15:42:00 Test Item Value Reference Range Interpretation Comments GLUCOMETER (test code = 124 mg/dL 70-100 H Mete r ID: GMG) [id number] tor: 26675 AZAEL S CHMITZ GLUCOMETER GLUCOSE- LAB USE [id number] 11:22:00 Test Item Value Reference Range Interpretation Comments GLUCOMETER (test code = 134 mg/dL 70-100 H Mete r ID: GMG) [id number] tor: 96582 AZAEL S CHMITZ COMPREHENSIVE METABOLIC [id number] 06:04:00 Test Item Value Reference Range Interpretation [...] as normal/abnormal . GFR 188 See_Comment [Automated KUWAITI (test mL/min/1.73m\\S\\2 message] The code = GFRAA) [...] = RBCMOR) NORMAL GLUCOMETER GLUCOSE- LAB USE [id number] 05:04:00 Test Item Value Reference Range Interpretation Comments GLUCOMETER (test code 137 mg/dL 70-100 H CLEANE D METERMeter ID: = GMG) [id number] tor: 57242 ANGI MITTAL GLUCOMETER GLUCOSE- LAB USE [id number] 23:32:00 Test Item Value Reference Range Interpretation Comments GLUCOMETER (test code 139 mg/dL 70-100 H CLEANE D METERMeter ID: = GMG) [id number] tor: 80648 ANGI T AYLOR GLUCOMETER GLUCOSE- LAB USE [id number] 19:54:00 Test Item Value Reference Range Interpretation Comments GLUCOMETER (test code 134 mg/dL 70-100 H CLEANE D METERMeter ID: = GMG) [id number] tor: 06555 ANGI T AYLOR GLUCOMETER GLUCOSE- LAB USE [id number] 15:31:00 Test Item Value Reference Range Interpretation Comments GLUCOMETER (test code = 142 mg/dL 70-100 H Mete r ID: GMG) [id number] tor: 12510 AZAEL S CHMITZ GLUCOMETER GLUCOSE- LAB USE [id number] 11:34:00 Test Item Value Reference Range Interpretation Comments GLUCOMETER (test code = 151 mg/dL 70-100 H Mete r ID: GMG) [id number] tor: 67938 AZAEL S CHMITZ GLUCOMETER GLUCOSE- LAB USE [id number] 06:12:00 Test Item Value Reference Range Interpretation Comments GLUCOMETER (test code = 130 mg/dL 70-100 H Mete r ID: GMG) [id number] tor: 4496 ZOE E. LOPEZ GLUCOMETER GLUCOSE- LAB USE [id number] 00:12:00 Test Item Value Reference Range Interpretation Comments GLUCOMETER (test code = 115 mg/dL 70-100 H Mete r ID: GMG) [id number] tor: 4496 ZOE E. LOPEZ GLUCOMETER GLUCOSE- LAB USE [id number] 20:11:00 Test Item Value Reference Range Interpretation Comments GLUCOMETER (test code = 153 mg/dL 70-100 H Mete r ID: GMG) [id number] tor: 4496 ZOE E. LOPEZ GLUCOMETER GLUCOSE- LAB USE [id number] 15:10:00 Test Item Value Reference Range Interpretation Comments GLUCOMETER (test code = 127 mg/dL 70-100 H Mete r ID: GMG) [id number] tor: 71100 JESSA LUGOWELL GLUCOMETER GLUCOSE- LAB USE [id number] 12:20:00 Test Item Value Reference Range Interpretation Comments GLUCOMETER (test code = 162 mg/dL 70-100 H Mete r ID: GMG) [id number] tor: 50675 JESSA MENON PRO TIME AND [id number] 05:36:00 Test Item Value Reference Range Interpretation [...] Heparin. Order Code is ANTI-XA COMPREHENSIVE METABOLIC [id number] 05:25:00 Test Item Value Reference Range Interpretation [...] as normal/abnormal . GFR 182 See_Comment [Automated KUWAITI (test mL/min/1.73m\\S\\2 message] The code = GFRAA) [...] = RBCMOR) NORMAL GLUCOMETER GLUCOSE- LAB USE [id number] 04:34:00 Test Item Value Reference Range Interpretation Comments GLUCOMETER (test code 126 mg/dL 70-100 H CLEANE D METERMeter ID: = GMG) [id number] tor: 15476 ANGI MITTAL GLUCOMETER GLUCOSE- LAB USE [id number] 23:44:00 Test Item Value Reference Range Interpretation Comments GLUCOMETER (test code 116 mg/dL 70-100 H CLEANE D METERMeter ID: = GMG) [id number] tor: 21134 ANGI T AYLOR GLUCOMETER GLUCOSE- LAB USE [id number] 20:13:00 Test Item Value Reference Range Interpretation Comments GLUCOMETER (test code 130 mg/dL 70-100 H CLEANE D METERMeter ID: = GMG) [id number] tor: 86015 ANGI T AYLOR GLUCOMETER GLUCOSE- LAB USE [id number] 15:22:00 Test Item Value Reference Range Interpretation Comments GLUCOMETER (test code = 135 mg/dL 70-100 H Mete r ID: GMG) [id number] tor: 98182 JESSA PARISI OSWELL DILANTIN (PHENYTOIN) [id number] 12:26:00 Test Item Value Reference Range Interpretation Comments PHENYTOIN (test code = 68C) 14.0 ug/mL 10.0-20.0 GLUCOMETER GLUCOSE- LAB USE [id number] 12:22:00 Test Item Value Reference Range Interpretation Comments GLUCOMETER (test code = 129 mg/dL 70-100 H Mete r ID: GMG) [id number] tor: 08279 JESSA PARISI [employer] URINE [id number] 08:45:00 Test Item Value Reference Range Interpretation Comments Culture Observations (test NO GROWTH (<1,000 code = COB1) CFU/ML) PRO TIME AND [id number] 06:24:00 Test Item Value Reference Range Interpretation [...] (test code = RBCMOR) NORMAL COMPREHENSIVE METABOLIC [id number] 06:01:00 Test Item Value Reference Range Interpretation [...] as normal/abnormal . GFR 191 See_Comment [Automated KUWAITI (test mL/min/1.73m\\S\\2 message] The code = GFRAA) [...] as normal/abnormal . GLUCOMETER GLUCOSE- LAB USE [id number] 05:41:00 Test Item Value Reference Range Interpretation Comments GLUCOMETER (test code 120 mg/dL 70-100 H CLEANE D METERMeter ID: = GMG) [id number] tor: 16075 ANGI T AYLOR GLUCOMETER GLUCOSE- LAB USE [id number] 23:35:00 Test Item Value Reference Range Interpretation Comments GLUCOMETER (test code 120 mg/dL 70-100 H CLEANE D METERMeter ID: = GMG) [id number] tor: 09749 ANGI T AYLOR GLUCOMETER GLUCOSE- LAB USE [id number] 20:18:00 Test Item Value Reference Range Interpretation Comments GLUCOMETER (test code 135 mg/dL 70-100 H CLEANE D METERMeter ID: = GMG) [id number] tor: 84832 ANGI T AYLOR GLUCOMETER GLUCOSE- LAB USE [id number] 15:34:00 Test Item Value Reference Range Interpretation Comments GLUCOMETER (test code 137 mg/dL 70-100 H CLEANE D METERMeter ID: = GMG) [id number] tor: 51920 ERIC RI OS GLUCOMETER GLUCOSE- LAB USE [id number] 10:55:00 Test Item Value Reference Range Interpretation Comments GLUCOMETER (test code 125 mg/dL 70-100 H CLEANE D METERMeter ID: = GMG) [id number] tor: 34761 ERIC RI OS GLUCOMETER GLUCOSE- LAB USE [id number] 05:21:00 Test Item Value Reference Range Interpretation Comments GLUCOMETER (test code 139 mg/dL 70-100 H CLEANE D METERMeter ID: = GMG) [id number] tor: 99305 ANGI Cohen [facility] METABOLIC [id number] 03:29:00 Test Item Value Reference Range Interpretation [...] = 164 See_Comment [Automated GFR) mL/min/1.73m\\S\\2 message] Th e system which generated this result transmit claudio reference range : >=90. The reference range was not used to interpret this result as normal/abnormal . GFR 191 See_Comment [Automated KUWAITI (test mL/min/1.73m\\S\\2 message] The code = GFRAA) [...] = RBCMOR) NORMAL GLUCOMETER GLUCOSE- LAB USE [id number] 00:02:00 Test Item Value Reference Range Interpretation Comments GLUCOMETER (test code 116 mg/dL 70-100 H CLEANE D METERMeter ID: = GMG) [id number] tor: 84763 ANGI T AYLOR GLUCOMETER GLUCOSE- LAB USE [id number] 19:40:00 Test Item Value Reference Range Interpretation Comments GLUCOMETER (test code 128 mg/dL 70-100 H CLEANE D METERMeter ID: = GMG) [id number] tor: 27034 ANGI T AYLOR GLUCOMETER GLUCOSE- LAB USE [id number] 16:04:00 Test Item Value Reference Range Interpretation Comments GLUCOMETER (test code 129 mg/dL 70-100 H CLEANE D METERMeter ID: = GMG) [id number] tor: 64844 ERIC RI OS GLUCOMETER GLUCOSE- LAB USE [id number] 11:38:00 Test Item Value Reference Range Interpretation Comments GLUCOMETER (test code 144 mg/dL 70-100 H CLEANE D METERMeter ID: = GMG) [id number] tor: 75516 ERIC RI OS COMPREHENSIVE METABOLIC [id number] 08:06:00 Test Item Value Reference Range Interpretation [...] as normal/abnormal . GFR 197 See_Comment [Automated KUWAITI (test mL/min/1.73m\\S\\2 message] The code = GFRAA) [...] this result as normal/abnormal . DILANTIN (PHENYTOIN) [id number] 07:59:00 Test Item Value Reference Range Interpretation Comments PHENYTOIN (test code = 68C) 17.3 ug/mL 10.0-20.0 PRO TIME AND [id number] 07:41:00 Test Item Value Reference Range Interpretation [...] = RBCMOR) NORMAL GLUCOMETER GLUCOSE- LAB USE [id number] 05:50:00 Test Item Value Reference Range Interpretation Comments GLUCOMETER (test code = 139 mg/dL 70-100 H Mete r ID: [facility]) [id number] tor: 4496 ZOE E. LOPEZ GLUCOMETER GLUCOSE- LAB USE [id number] 01:00:00 Test Item Value Reference Range Interpretation Comments GLUCOMETER (test code = 133 mg/dL 70-100 H Mete r ID: [facility]) [id number] tor: 4496 ZOE E. LOPEZ GLUCOMETER GLUCOSE- LAB USE [id number] 20:41:00 Test Item Value Reference Range Interpretation Comments GLUCOMETER (test code = 123 mg/dL 70-100 H Mete r ID: [facility]) [id number] tor: 4496 ZOE E. LOPEZ GLUCOMETER GLUCOSE- LAB USE [id number] 16:18:00 Test Item Value Reference Range Interpretation Comments GLUCOMETER (test code = 123 mg/dL 70-100 H Mete r ID: GMG) [id number] tor: 9358 KEY MARTIN GLUCOMETER GLUCOSE- LAB USE [id number] 11:27:00 Test Item Value Reference Range Interpretation Comments GLUCOMETER (test code = 145 mg/dL 70-100 H Mete r ID: GMG) [id number] tor: 9358 KEY MARTIN COMPREHENSIVE METABOLIC [id number] 06:45:00 Test Item Value Reference Range Interpretation [...] as normal/abnormal . GFR 201 See_Comment [Automated KUWAITI (test mL/min/1.73m\\S\\2 message] The code = GFRAA) [...] as normal/abnormal . GLUCOMETER GLUCOSE- LAB USE [id number] 06:02:00 Test Item Value Reference Range Interpretation Comments GLUCOMETER (test code = 147 mg/dL 70-100 H Mete r ID: GMG) [id number] tor: 5331 [facility] CBC (INCLUDES AUTOMATED DIFFERENTIAL)2020-05-29 03:35:00 Test Item [...] = RBCMOR) NORMAL GLUCOMETER GLUCOSE- LAB USE [id number] 00:04:00 Test Item Value Reference Range Interpretation Comments GLUCOMETER (test code = 111 mg/dL 70-100 H Mete r ID: GMG) [id number] tor: 91619 LOGAN HORVATH GLUCOMETER GLUCOSE- LAB USE [id number] 17:06:00 Test Item Value Reference Range Interpretation Comments GLUCOMETER (test code 121 mg/dL 70-100 H CLEANE D METERMeter ID: = GMG) [id number] tor: 4762 LISETH HUNTLEY GLUCOMETER GLUCOSE- LAB USE [id number] 11:33:00 Test Item Value Reference Range Interpretation Comments GLUCOMETER (test code 136 mg/dL 70-100 H CLEANE D METERMeter ID: = GMG) [id number] tor: 4762 LISETH HUNTLEY [facility] [employer] [employer] [id number] 11:10:00 Test Item Value Reference Range Interpretation [...] = Danielle albicans A ISO3) DILANTIN (PHENYTOIN) [id number] 05:46:00 Test Item Value Reference Range Interpretation Comments PHENYTOIN (test code = 68C) 9.1 ug/mL 10.0-20.0 LL GLUCOMETER GLUCOSE- LAB USE [id number] 05:13:00 Test Item Value Reference Range Interpretation Comments GLUCOMETER (test code = 119 mg/dL 70-100 H Mete r ID: G) [id number] tor: [id number] LOGAN HORVATH COMPREHENSIVE METABOLIC [id number] 05:12:00 Test Item Value Reference Range Interpretation [...] as normal/abnormal . GFR 206 See_Comment [Automated [place] (test mL/min/1.73m\\S\\2 message] The code = GFRAA) [...] = RBCMOR) NORMAL GLUCOMETER GLUCOSE- LAB USE [id number] 23:48:00 Test Item Value Reference Range Interpretation Comments GLUCOMETER (test code = 140 mg/dL 70-100 H Mete r ID: GMG) [id number] tor: [id number] LOGAN HORVATH GLUCOMETER GLUCOSE- LAB USE [id number] 17:34:00 Test Item Value Reference Range Interpretation Comments GLUCOMETER (test code 109 mg/dL 70-100 H CLEANE D METERMeter ID: = GMG) [id number] tor: [id number] LISETH BABB YUKO GLUCOMETER GLUCOSE- LAB USE [id number] 11:41:00 Test Item Value Reference Range Interpretation Comments GLUCOMETER (test code 122 mg/dL 70-100 H CLEANE D METERMeter ID: = GMG) [id number] tor: [id number] LISETH DE LA ROSAZ BLOOD [id number] 07:02:00 Test Item Value Reference Range Interpretation Comments Culture Observations (test NO GROWTH AFTER 5 code = COB1) DAYS DILANTIN (PHENYTOIN) [id number] 04:08:00 Test Item Value Reference Range Interpretation Comments PHENYTOIN (test code = 68C) 8.5 ug/mL 10.0-20.0 LL COMPREHENSIVE METABOLIC [id number] 03:52:00 Test Item Value Reference Range Interpretation [...] = 144 See_Comment [Automated GFR) mL/min/1.73m\\S\\2 message] Th e system which generated this result transmit claudio reference range : >=90. The reference range was not used to interpret this result as normal/abnormal . GFR 167 See_Comment [Automated [place] (test mL/min/1.73m\\S\\2 message] The code = GFRAA) [...] = RBCMOR) NORMAL GLUCOMETER GLUCOSE- LAB USE [id number] 00:37:00 Test Item Value Reference Range Interpretation Comments GLUCOMETER (test code = 140 mg/dL 70-100 H Mete r ID: GMG) [id number] tor: 9499 MARIALUISA CHES NATHANIEL GLUCOMETER GLUCOSE- LAB USE [id number] 17:15:00 Test Item Value Reference Range Interpretation Comments GLUCOMETER (test code = 99 mg/dL 70-100 Mete r ID: GMG) [id number] tor: 02783 RAINI BUT LER GLUCOMETER GLUCOSE- LAB USE [id number] 11:43:00 Test Item Value Reference Range Interpretation Comments GLUCOMETER (test code = 158 mg/dL 70-100 H Mete r ID: GMG) [id number] tor: 9804 CONCHITA S TAINE GLUCOMETER GLUCOSE- LAB USE [id number] 11:43:00 Test Item Value Reference Range Interpretation Comments GLUCOMETER (test code = 152 mg/dL 70-100 H Mete r ID: GMG) [id number] tor: 9804 CONCHITA S TAINE PRO TIME AND [id number] 06:14:00 Test Item Value Reference Range Interpretation [...] or LMW Heparin. Order Code is ANTI-XA [id number] 05:25:00 Test Item Value Reference Range Interpretation Comments FERRITIN (test code = A19) 166.7 ng/mL 26.0-388.0 COMPREHENSIVE METABOLIC [id number] 05:25:00 Test Item Value Reference Range Interpretation [...] = 142 See_Comment [Automated GFR) mL/min/1.73m\\S\\2 message] Th e system which generated this result transmit claudio reference range : >=90. The reference range was not used to interpret this result as normal/abnormal . GFR 165 See_Comment [Automated [place] (test mL/min/1.73m\\S\\2 message] The code = GFRAA) [...] to interpret this result as normal/abnormal . [id number] 05:17:00 Test Item Value Reference Range Interpretation Comments MAGNESIUM (test code = 48A) 2.0 mg/dL 1.8-2.4 GLUCOMETER GLUCOSE- LAB USE [id number] 05:14:00 Test Item Value Reference Range Interpretation Comments GLUCOMETER (test code 125 mg/dL 70-100 H CLEANE D METERMeter ID: = GMG) [id number] tor: 5533 LESLIE WAR A CBC (INCLUDES [...] = RBCMOR) NORMAL GLUCOMETER GLUCOSE- LAB USE [id number] 23:18:00 Test Item Value Reference Range Interpretation Comments GLUCOMETER (test code 113 mg/dL 70-100 H CLEANE D METERMeter ID: = GMG) [id number] tor: 5533 LESLIE WAR A GLUCOMETER GLUCOSE- LAB USE [id number] 17:23:00 Test Item Value Reference Range Interpretation Comments GLUCOMETER (test code = 137 mg/dL 70-100 H Mete r ID: GMG) [id number] tor: 14398 RAINI BUT LER GLUCOMETER GLUCOSE- LAB USE [id number] 11:50:00 Test Item Value Reference Range Interpretation Comments GLUCOMETER (test code = 132 mg/dL 70-100 H Mete r ID: GMG) [id number] tor: 88725 RAINI BUT LER RESPIRATORY & GRAM STAIN [id number] 08:31:00 Test Item Value Reference Range Interpretation [...] = Danielle albicans A ISO2) Arterial Blood [id number] 04:56:00 Test Item Value Reference Range Interpretation [...] (test code = 92.3 % 94.0-100.0 L OH6KXJM) FCOHb (test code = 1.0 % 0.0-3.0 FCOHBRT) FMetHb (test code = 1.2 % 0.2-0.6 H FMETHBRT) ABGTEMP (test code = * Temp Corrected Values* ABGTEMP) ABGTEMP (test code = 37.0 ?C ABGTEMP.) pH (T) (test code = 7.456 7.350-7.450 H PHTEMP) pCO2 (T) (test code = 36.0 mmHg 35.0-45.0 DLI3ILYK) pO2 (T) (test code = 73.9 mmHg 80.0-110.0 L RX8JHEW) Device (test code = VENTILATOR DEVICE) FI02 [...] (test code = RBCMOR) NORMAL COMPREHENSIVE METABOLIC [id number] 04:37:00 Test Item Value Reference Range Interpretation [...] as normal/abnormal . GFR 177 See_Comment [Automated [place] (test mL/min/1.73m\\S\\2 message] The code = GFRAA) [...] to interpret this result as normal/abnormal . [id number] 04:32:00 Test Item Value Reference Range Interpretation Comments MAGNESIUM (test code = 48A) 1.9 mg/dL 1.8-2.4 GLUCOMETER GLUCOSE- LAB USE [id number] 23:54:00 Test Item Value Reference Range Interpretation Comments GLUCOMETER (test code 105 mg/dL 70-100 H CLEANE D METERMeter ID: = [facility]) [id number] tor: 9286 JEROME HOFFMAN GLUCOMETER GLUCOSE- LAB USE [id number] 17:35:00 Test Item Value Reference Range Interpretation Comments GLUCOMETER (test code = 115 mg/dL 70-100 H Mete r ID: GMG) [id number] tor: 9537 FRANCIS MIRT O GLUCOMETER GLUCOSE- LAB USE [id number] 11:56:00 Test Item Value Reference Range Interpretation Comments GLUCOMETER (test code = 145 mg/dL 70-100 H Mete r ID: GMG) [id number] tor: 9537 FRANCIS MIRT O TROPONIN [id number] 06:27:00 Test Item Value Reference Range Interpretation Comments TROPONIN I (test code = A84) <0.015 ng/mL 0.000-0.045 [id number] 06:26:00 Test Item Value Reference Range Interpretation Comments FERRITIN (test code = A19) 168.9 ng/mL 26.0-388.0 LDH-LACTIC [id number] 06:26:00 Test Item Value Reference Range Interpretation Comments LDH (test code = 33A) 231 IU/L 100-190 H LDH-LACTIC [id number] 06:26:00 Test Item Value Reference Range Interpretation Comments LDH (test code = 33A) 268 IU/L 100-190 H COMPREHENSIVE METABOLIC [id number] 06:21:00 Test Item Value Reference Range Interpretation [...] as normal/abnormal . GFR 161 See_Comment [Automated [place] (test mL/min/1.73m\\S\\2 message] The code = GFRAA) [...] to interpret this result as normal/abnormal . [id number] 06:19:00 Test Item Value Reference Range Interpretation Comments MAGNESIUM (test code = 48A) 2.2 mg/dL 1.8-2.4 C-REACTIVE PROTEIN [id number] 06:16:00 Test Item Value Reference Range Interpretation Comments CRP QUANT (test code 4.2 mg/L 0.0-2.9 H = CRPQ) Method Change (test Please note the code = METHOD) change in Method and the reference range [id number] 06:01:00 Test Item Value Reference Range Interpretation Comments D-DIMER (test code = 229 ng/mL D-DU 0-234 DDI) D-DIMER COMMENT (test *Level to rule out code = DDCOM) DVT or PE: <235 ng/mL D-DU* PRO TIME AND [id number] 06:01:00 Test Item Value Reference Range Interpretation Comments PT (test code = 11.0 s 9.8-13.6 TT) INR (test code = 1.0 INR) INRH (test code = SUGGESTED INRH) THERAPEUTIC RANGE FOR INR: 2.5 - 3.5 For [...] code = MDIFF) NO NO Arterial Blood [id number] 04:36:00 Test Item Value Reference Range Interpretation [...] (test code = 93.6 % 94.0-100.0 L KI5TCVI) FCOHb (test code = 1.0 % 0.0-3.0 FCOHBRT) FMetHb (test code = 1.1 % 0.2-0.6 H FMETHBRT) ABGTEMP (test code = * Temp Corrected Values* ABGTEMP) ABGTEMP (test code = 37.0 ?C ABGTEMP.) pH (T) (test code = 7.445 7.350-7.450 PHTEMP) pCO2 (T) (test code = 37.9 mmHg 35.0-45.0 NBQ7XFQN) pO2 (T) (test code = 82.2 mmHg 80.0-110.0 BP9EBAA) Device (test code = VENTILATOR DEVICE) FI02 [...] code = CO) GLUCOMETER GLUCOSE- LAB USE [id number] 23:40:00 Test Item Value Reference Range Interpretation Comments GLUCOMETER (test code = 98 mg/dL 70-100 PAPI SILVIA METERMeter ID: GMG) [id number] tor: 9286 JEROME HIGUERAS GLUCOMETER GLUCOSE- LAB USE [id number] 17:41:00 Test Item Value Reference Range Interpretation Comments GLUCOMETER (test code = 117 mg/dL 70-100 H Mete r ID: GMG) [id number] tor: 9537 FRANCIS MIRT O GLUCOMETER GLUCOSE- LAB USE [id number] 12:02:00 Test Item Value Reference Range Interpretation Comments GLUCOMETER (test code = 164 mg/dL 70-100 H Mete r ID: GMG) [id number] tor: 9537 FRANCIS MIRT O DILANTIN (PHENYTOIN) [id number] 11:07:00 Test Item Value Reference Range Interpretation Comments PHENYTOIN (test code = 68C) 11.4 ug/mL 10.0-20.0 COMPREHENSIVE METABOLIC [id number] 05:49:00 Test Item Value Reference Range Interpretation [...] as normal/abnormal . GFR 155 See_Comment [Automated [place] (test mL/min/1.73m\\S\\2 message] The code = GFRAA) [...] interpret this result as normal/abnormal . LDH-LACTIC [id number] 05:49:00 Test Item Value Reference Range Interpretation Comments LDH (test code = 33A) 268 IU/L 100-190 H [id number] 05:49:00 Test Item Value Reference Range Interpretation Comments MAGNESIUM (test code = 48A) 2.0 mg/dL 1.8-2.4 GLUCOMETER GLUCOSE- LAB USE [id number] 05:37:00 Test Item Value Reference Range Interpretation Comments GLUCOMETER (test code = 68 mg/dL 70-100 L PAPI SILVIA METERMeter ID: GMG) [id number] tor: 02121 EBONI LUNA CBC (INCLUDES AUTOMATED DIFFERENTIAL)2020-05-23 05:33:00 Test Item [...] (test code = RBCMOR) NORMAL Arterial Blood [id number] 05:03:00 Test Item Value Reference Range Interpretation [...] (test code = 91.7 % 94.0-100.0 L AD7UFWR) FCOHb (test code = 0.9 % 0.0-3.0 FCOHBRT) FMetHb (test code = 1.3 % 0.2-0.6 H FMETHBRT) ABGTEMP (test code = * Temp Corrected Values* ABGTEMP) ABGTEMP (test code = 37.0 ?C ABGTEMP.) pH (T) (test code = 7.459 7.350-7.450 H PHTEMP) pCO2 (T) (test code = 36.3 mmHg 35.0-45.0 OCY2OEPT) pO2 (T) (test code = 74.9 mmHg 80.0-110.0 L PT5IHNF) Device (test code = VENTILATOR DEVICE) FI02 [...] code = CO) GLUCOMETER GLUCOSE- LAB USE [id number] 23:16:00 Test Item Value Reference Range Interpretation Comments GLUCOMETER (test code 100 mg/dL 70-100 CLEANE D METERMeter ID: = G) [id number] tor: 19116 EBONI LUNA GLUCOMETER GLUCOSE- LAB USE [id number] 17:21:00 Test Item Value Reference Range Interpretation Comments GLUCOMETER (test code = 109 mg/dL 70-100 H Mete r ID: GMG) [id number] tor: 43827 RAINI BUT LER GLUCOMETER GLUCOSE- LAB USE [id number] 12:06:00 Test Item Value Reference Range Interpretation Comments GLUCOMETER (test code = 147 mg/dL 70-100 H Mete r ID: GMG) [id number] tor: 00544 RAINI BUT LER GLUCOMETER GLUCOSE- LAB USE [id number] 11:43:00 Test Item Value Reference Range Interpretation Comments GLUCOMETER (test code = 151 mg/dL 70-100 H Mete r ID: GMG) [id number] tor: 09400 RAINI BUT LER [id number] 06:52:00 Test Item Value Reference Range Interpretation Comments MAGNESIUM (test code = 48A) 2.3 mg/dL 1.8-2.4 C-REACTIVE PROTEIN [id number] 06:34:00 Test Item Value Reference Range Interpretation Comments CRP QUANT (test code <2.9 mg/L 0.0-2.9 = CRPQ) Method Change (test Please note the code = METHOD) change in Method and the reference range TROPONIN [id number] 06:23:00 Test Item Value Reference Range Interpretation Comments TROPONIN I (test code = A84) <0.015 ng/mL 0.000-0.045 LDH-LACTIC [id number] 06:14:00 Test Item Value Reference Range Interpretation Comments LDH (test code = 33A) 242 IU/L 100-190 H [id number] 06:14:00 Test Item Value Reference Range Interpretation Comments FERRITIN (test code = A19) 197.2 ng/mL 26.0-388.0 COMPREHENSIVE METABOLIC [id number] 06:14:00 Test Item Value Reference Range Interpretation [...] as normal/abnormal . GFR 149 See_Comment [Automated [place] (test mL/min/1.73m\\S\\2 message] The code = GFRAA) [...] to interpret this result as normal/abnormal . [id number] 05:35:00 Test Item Value Reference Range Interpretation Comments D-DIMER (test code = 290 ng/mL D-DU 0-234 H DDI) D-DIMER COMMENT (test *Level to rule out code = DDCOM) DVT or PE: <235 ng/mL D-DU* PRO TIME AND [id number] 05:35:00 Test Item Value Reference Range Interpretation [...] (test code = RBCMOR) NORMAL Arterial Blood [id number] 04:53:00 Test Item Value Reference Range Interpretation [...] FO2Hb (test code = 94.5 % 94.0-100.0 LH2KHVD) FCOHb (test code = 0.6 % 0.0-3.0 FCOHBRT) FMetHb (test code = 1.2 % 0.2-0.6 H FMETHBRT) ABGTEMP (test code = * Temp Corrected Values* ABGTEMP) ABGTEMP (test code = 37.0 ?C ABGTEMP.) pH (T) (test code = 7.452 7.350-7.450 H PHTEMP) pCO2 (T) (test code = 36.2 mmHg 35.0-45.0 RQW6FPJM) pO2 (T) (test code = 90.0 mmHg 80.0-110.0 VK9ZTVH) Device (test code = VENTILATOR DEVICE) FI02 [...] code = CO) GLUCOMETER GLUCOSE- LAB USE [id number] 23:29:00 Test Item Value Reference Range Interpretation Comments GLUCOMETER (test code 125 mg/dL 70-100 H CLEANE D METERMeter ID: = GMG) [id number] tor: [address] [facility] METABOLIC [id number] 06:21:00 Test Item Value Reference Range Interpretation [...] = 138 See_Comment [Automated GFR) mL/min/1.73m\\S\\2 message] e system which generated this result transmit claudio reference range : >=90. The reference range was not used to interpret this result as normal/abnormal . GFR 160 See_Comment [Automated [place] (test mL/min/1.73m\\S\\2 message] The code = GFRAA) [...] interpret this result as normal/abnormal . LDH-LACTIC [id number] 06:08:00 Test Item Value Reference Range Interpretation Comments LDH (test code = 33A) 292 IU/L 100-190 H [id number] 06:08:00 Test Item Value Reference Range Interpretation [...] (test code = RBCMOR) NORMAL Arterial Blood [id number] 05:14:00 Test Item Value Reference Range Interpretation [...] FO2Hb (test code = 95.5 % 94.0-100.0 SD9IDHC) FCOHb (test code = 1.3 % 0.0-3.0 FCOHBRT) FMetHb (test code = 0.5 % 0.2-0.6 FMETHBRT) ABGTEMP (test code = * Temp Corrected Values* ABGTEMP) ABGTEMP (test code = 37.0 ?C ABGTEMP.) pH (T) (test code = 7.493 7.350-7.450 H PHTEMP) pCO2 (T) (test code = 32.9 mmHg 35.0-45.0 L NLT8QWSF) pO2 (T) (test code = 89.1 mmHg 80.0-110.0 TY3HLET) Device (test code = VENTILATOR DEVICE) FI02 [...] (test code = CO) CBC WITH MANUAL [id number] 06:52:00 Test Item Value Reference Range Interpretation [...] NONE A code = HYPOC) C-REACTIVE PROTEIN [id number] 06:17:00 Test Item Value Reference Range Interpretation Comments CRP QUANT (test code <2.9 mg/L 0.0-2.9 = CRPQ) Method Change (test Please note the code = METHOD) change in Method and the reference range LDH-LACTIC [id number] 05:53:00 Test Item Value Reference Range Interpretation Comments LDH (test code = 33A) 312 IU/L 100-190 H COMPREHENSIVE METABOLIC [id number] 05:52:00 Test Item Value Reference Range Interpretation [...] as normal/abnormal . GFR 149 See_Comment [Automated [place] (test mL/min/1.73m\\S\\2 message] The code = GFRAA) [...] interpret this result as normal/abnormal . LDH-LACTIC [id number] 05:52:00 Test Item Value Reference Range Interpretation Comments LDH (test code = 33A) 301 IU/L 100-190 H [id number] 05:52:00 Test Item Value Reference Range Interpretation Comments FERRITIN (test code = A19) 254.0 ng/mL 26.0-388.0 TROPONIN [id number] 05:52:00 Test Item Value Reference Range Interpretation Comments TROPONIN I (test code = A84) <0.015 ng/mL 0.000-0.045 [id number] 05:51:00 Test Item Value Reference Range Interpretation Comments MAGNESIUM (test code = 48A) 2.2 mg/dL 1.8-2.4 PRO TIME AND [id number] 05:43:00 Test Item Value Reference Range Interpretation [...] or LMW Heparin. Order Code is ANTI-XA [id number] 05:43:00 Test Item Value Reference Range Interpretation Comments D-DIMER (test code = 288 ng/mL D-DU 0-234 H DDI) D-DIMER COMMENT (test *Level to rule out code = DDCOM) DVT or PE: <235 ng/mL D-DU* Arterial Blood [id number] 05:06:00 Test Item Value Reference Range Interpretation [...] (test code = 92.8 % 94.0-100.0 L TZ9XKOR) FCOHb (test code = 1.2 % 0.0-3.0 FCOHBRT) FMetHb (test code = 0.6 % 0.2-0.6 FMETHBRT) ABGTEMP (test code = * Temp Corrected Values* ABGTEMP) ABGTEMP (test code = 37.0 ?C ABGTEMP.) pH (T) (test code = 7.475 7.350-7.450 H PHTEMP) pCO2 (T) (test code = 36.6 mmHg 35.0-45.0 THM5UBLR) pO2 (T) (test code = 74.3 mmHg 80.0-110.0 L EW7YRAW) Device (test code = VENTILATOR DEVICE) FI02 [...] the FDA and the [employer] (CAP) are more stringent than those [...] the FDA and the [employer] (CAP) are more stringent than those required for this test. Therefore, the result should be interpreted with caution and close attention to other clinical and epidemiological data CBC WITH MANUAL [id number] 07:03:00 Test Item Value Reference Range Interpretation [...] NONE A code = HYPOC) COMPREHENSIVE METABOLIC [id number] 05:28:00 Test Item Value Reference Range Interpretation [...] as normal/abnormal . GFR 153 See_Comment [Automated [place] (test mL/min/1.73m\\S\\2 message] The code = GFRAA) [...] interpret this result as normal/abnormal . LDH-LACTIC [id number] 05:28:00 Test Item Value Reference Range Interpretation Comments LDH (test code = 33A) 295 IU/L 100-190 H [id number] 05:28:00 Test Item Value Reference Range Interpretation Comments MAGNESIUM (test code = 48A) 2.2 mg/dL 1.8-2.4 Arterial Blood [id number] 04:31:00 Test Item Value Reference Range Interpretation [...] FO2Hb (test code = 96.5 % 94.0-100.0 QL9IKQQ) FCOHb (test code = 1.2 % 0.0-3.0 FCOHBRT) FMetHb (test code = 0.7 % 0.2-0.6 H FMETHBRT) ABGTEMP (test code = * Temp Corrected Values* ABGTEMP) ABGTEMP (test code = 37.0 ?C ABGTEMP.) pH (T) (test code = 7.449 7.350-7.450 PHTEMP) pCO2 (T) (test code = 38.4 mmHg 35.0-45.0 HYE5EXNS) pO2 (T) (test code = 108.0 mmHg 80.0-110.0 FO2PWTS) Device (test code = VENTILATOR DEVICE) FI02 [...] BIPAPINP) BIPAP EXP (test code = BIPAPEXP) Ceiclio test (test code Positive = ATEST) SAMPLE SITE (test Right Radial Artery code = SSITE) COMMENT (test code = CO) DILANTIN (PHENYTOIN) [id number] 12:47:00 Test Item Value Reference Range Interpretation Comments PHENYTOIN (test code = 68C) 7.2 ug/mL 10.0-20.0 LL CBC WITH MANUAL [id number] 06:55:00 Test Item Value Reference Range Interpretation [...] % See_Comment [Automated message] EOS) The system [employer] generated this result transmit claudio reference range : <=10. The refer ence range was not u sed to interpret th is result as normal/abnormal . BASO (test code = 0 % 0-2 BASO) MYELO (test code 2 % See_Comment H [Automated message] = MYELO) The system [employer] generated this result transmit claudio reference range : <=1. The refere nce range was not u sed to interpret th is result as normal/abnormal . RBC MORPH (test ABNORMAL NORMAL A code = RBCMORN) PLT EST (test ADEQUATE ADEQUATE code = PLTEST) PLT MORPH (test NORMAL (1.5-3 um) NORMAL code = PLTMOR) ANISO (test code 1+ NONE A = ANISO) PRO TIME AND [id number] 06:34:00 Test Item Value Reference Range Interpretation [...] or LMW Heparin. Order Code is ANTI-XA [id number] 06:34:00 Test Item Value Reference Range Interpretation Comments D-DIMER (test code = 381 ng/mL D-DU 0-234 H DDI) D-DIMER COMMENT (test *Level to rule out code = DDCOM) DVT or PE: <235 ng/mL D-DU* C-REACTIVE PROTEIN [id number] 05:08:00 Test Item Value Reference Range Interpretation Comments CRP QUANT (test code <2.9 mg/L 0.0-2.9 = CRPQ) Method Change (test Please note the code = METHOD) change in Method and the reference range LDH-LACTIC [id number] 05:05:00 Test Item Value Reference Range Interpretation Comments LDH (test code = 33A) 337 IU/L 100-190 H [id number] 05:03:00 Test Item Value Reference Range Interpretation Comments MAGNESIUM (test code = 48A) 2.1 mg/dL 1.8-2.4 TROPONIN [id number] 05:00:00 Test Item Value Reference Range Interpretation Comments TROPONIN I (test code = A84) <0.015 ng/mL 0.000-0.045 COMPREHENSIVE METABOLIC [id number] 04:55:00 Test Item Value Reference Range Interpretation [...] as normal/abnormal . GFR 150 See_Comment [Automated [place] (test mL/min/1.73m\\S\\2 message] The code = GFRAA) [...] interpret this result as normal/abnormal . LDH-LACTIC [id number] 04:55:00 Test Item Value Reference Range Interpretation Comments LDH (test code = 33A) 329 IU/L 100-190 H [id number] 04:55:00 Test Item Value Reference Range Interpretation Comments FERRITIN (test code = A19) 305.4 ng/mL 26.0-388.0 Arterial Blood [id number] 04:36:00 Test Item Value Reference Range Interpretation [...] FO2Hb (test code = 97.0 % 94.0-100.0 BG9QNKW) FCOHb (test code = 0.9 % 0.0-3.0 FCOHBRT) FMetHb (test code = 0.6 % 0.2-0.6 FMETHBRT) ABGTEMP (test code = * Temp Corrected Values* ABGTEMP) ABGTEMP (test code = 37.0 ?C ABGTEMP.) pH (T) (test code = 7.456 7.350-7.450 H PHTEMP) pCO2 (T) (test code = 39.4 mmHg 35.0-45.0 HEM8RDJN) pO2 (T) (test code = 110.0 mmHg 80.0-110.0 MW8VROR) Device (test code = VENTILATOR DEVICE) FI02 [...] (test code = CO) CBC WITH MANUAL [id number] 06:20:00 Test Item Value Reference Range Interpretation [...] um) NORMAL code = PLTMOR) COMPREHENSIVE METABOLIC [id number] 05:09:00 Test Item Value Reference Range Interpretation [...] code = 31A) 52 IU/L <=78 LDH-LACTIC [id number] 05:09:00 Test Item Value Reference Range Interpretation Comments LDH (test code = 33A) 359 IU/L 100-190 H [id number] 04:59:00 Test Item Value Reference Range Interpretation Comments MAGNESIUM (test code = 48A) 1.8 mg/dL 1.8-2.4 Arterial Blood [id number] 04:53:00 Test Item Value Reference Range Interpretation [...] FO2Hb (test code = 97.1 % 94.0-100.0 OT4YZZX) FCOHb (test code = 0.8 % 0.0-3.0 FCOHBRT) FMetHb (test code = 0.5 % 0.2-0.6 FMETHBRT) ABGTEMP (test code = * Temp Corrected Values* ABGTEMP) ABGTEMP (test code = 37.0 ?C ABGTEMP.) pH (T) (test code = 7.439 7.350-7.450 PHTEMP) pCO2 (T) (test code = 38.3 mmHg 35.0-45.0 XPE4TZQZ) pO2 (T) (test code = 114.0 mmHg 80.0-110.0 H BN2VLDN) Device (test code = VENTILATOR DEVICE) FI02 [...] SSITE) COMMENT (test code = CO) URINE [id number] 08:18:00 Test Item Value Reference Range Interpretation Comments Culture Observations (test NO GROWTH (<1,000 code = COB1) CFU/ML) [id number] 08:02:00 Test Item Value Reference Range Interpretation Comments INTERLEUKIN 69.76 pg/mL <5.00 H This test was p erformed using a -6 (test kit that has no t beencleared or code = approved by the FDA. The [id number]) analytical performancechar acteristics of this test have been determined by [facility] Preet Mccray. This testshould not be used for diagnosis witho ut confirmation [facility] ly established means.TEST PERF ORMED AT:[facility] [id number] JASSO SARAH Bueno [facility] [place] [id number] WILLY LOVE MD,PHD ,[facility] [id number] 07:44:00 Test Item Value Reference Range Interpretation [...] Danielle albicans A ISO1) CBC WITH MANUAL [id number] 06:57:00 Test Item Value Reference Range Interpretation [...] (test code = 1+ NONE A MICRO) [id number] 05:29:00 Test Item Value Reference Range Interpretation Comments MAGNESIUM (test code = 48A) 2.0 mg/dL 1.8-2.4 LDH-LACTIC [id number] 05:29:00 Test Item Value Reference Range Interpretation Comments LDH (test code = 33A) 341 IU/L 100-190 H COMPREHENSIVE METABOLIC [id number] 05:29:00 Test Item Value Reference Range Interpretation [...] = 31A) 46 IU/L <=78 Arterial Blood [id number] 04:58:00 Test Item Value Reference Range Interpretation [...] (test code = 90.5 % 94.0-100.0 L NF5EYPE) FCOHb (test code = 0.7 % 0.0-3.0 FCOHBRT) FMetHb (test code = 1.3 % 0.2-0.6 H FMETHBRT) ABGTEMP (test code = * Temp Corrected Values* ABGTEMP) ABGTEMP (test code = 37.0 ?C ABGTEMP.) pH (T) (test code = 7.458 7.350-7.450 H PHTEMP) pCO2 (T) (test code = 38.8 mmHg 35.0-45.0 [id number]) pO2 (T) (test code = 65.8 mmHg 80.0-110.0 L [id number]) Device (test code = VENTILATOR DEVICE) FI02 [...] COMMENT (test code = CO) COMPREHENSIVE METABOLIC [id number] 06:25:00 Test Item Value Reference Range Interpretation [...] code = 31A) 47 IU/L <=78 LDH-LACTIC [id number] 06:25:00 Test Item Value Reference Range Interpretation Comments LDH (test code = 33A) 427 IU/L 100-190 H [id number] 06:25:00 Test Item Value Reference Range Interpretation [...] (test code = RBCMOR) NORMAL Arterial Blood [id number] 05:02:00 Test Item Value Reference Range Interpretation [...] FO2Hb (test code = 95.3 % 94.0-100.0 [id number]) FCOHb (test code = 1.1 % 0.0-3.0 FCOHBRT) FMetHb (test code = 0.7 % 0.2-0.6 H FMETHBRT) ABGTEMP (test code = * Temp Corrected Values* ABGTEMP) ABGTEMP (test code = 37.0 ?C ABGTEMP.) pH (T) (test code = 7.494 7.350-7.450 H PHTEMP) pCO2 (T) (test code = 36.4 mmHg 35.0-45.0 [id number]) pO2 (T) (test code = 85.9 mmHg 80.0-110.0 [id number]) Device (test code = VENTILATOR DEVICE) FI02 [...] COMMENT (test code = CO) C-REACTIVE PROTEIN [id number] 14:04:00 Test Item Value Reference Range Interpretation Comments CRP QUANT (test code 27.6 mg/L 0.0-2.9 H = CRPQ) Method Change (test Please note the code = METHOD) change in Method and the reference range [id number] 14:00:00 Test Item Value Reference Range Interpretation Comments FERRITIN (test code = A19) 366.8 ng/mL 26.0-388.0 Arterial Blood [id number] 05:14:00 Test Item Value Reference Range Interpretation [...] FO2Hb (test code = 95.4 % 94.0-100.0 BH1VIEL) FCOHb (test code = 0.6 % 0.0-3.0 FCOHBRT) FMetHb (test code = 1.5 % 0.2-0.6 H FMETHBRT) ABGTEMP (test code = * Temp Corrected Values* ABGTEMP) ABGTEMP (test code = 37.0 ?C ABGTEMP.) pH (T) (test code = 7.494 7.350-7.450 H PHTEMP) pCO2 (T) (test code = 34.4 mmHg 35.0-45.0 L [id number]) pO2 (T) (test code = 99.9 mmHg 80.0-110.0 OC0KLMR) Device (test code = VENTILATOR DEVICE) FI02 [...] (test code = CO) CBC WITH MANUAL [id number] 04:15:00 Test Item Value Reference Range Interpretation [...] NORMAL (1.5-3 um) NORMAL PLTMOR) COMPREHENSIVE METABOLIC [id number] 03:52:00 Test Item Value Reference Range Interpretation [...] (test code = 31A) 49 IU/L <=78 [id number] 03:52:00 Test Item Value Reference Range Interpretation Comments MAGNESIUM (test code = 48A) 1.8 mg/dL 1.8-2.4 LDH-LACTIC [id number] 03:52:00 Test Item Value Reference Range Interpretation Comments LDH (test code = 33A) 380 IU/L 100-190 H URINALYSIS WITH [id number] 23:35:00 Test Item Value Reference Range Interpretation [...] code = USPERM) /HPF NONE Arterial Blood [id number] 13:31:00 Test Item Value Reference Range Interpretation [...] (test code = 88.6 % 94.0-100.0 L UE7MQTF) FCOHb (test code = 1.2 % 0.0-3.0 FCOHBRT) FMetHb (test code = 0.5 % 0.2-0.6 FMETHBRT) ABGTEMP (test code = * Temp Corrected Values* ABGTEMP) ABGTEMP (test code = 37.0 ?C ABGTEMP.) pH (T) (test code = 7.397 7.350-7.450 PHTEMP) pCO2 (T) (test code = 47.3 mmHg 35.0-45.0 H [id number]) pO2 (T) (test code = 54.8 mmHg 80.0-110.0 LL NU5SCQU) Device (test code = VENTILATOR DEVICE) FI02 [...] code = CO) GLUCOMETER GLUCOSE- LAB USE [id number] 05:32:00 Test Item Value Reference Range Interpretation Comments GLUCOMETER (test code 161 mg/dL 70-100 H CLEANE D METERMeter ID: = GMG) [id number] tor: [address] COMPREHENSIVE METABOLIC [id number] 04:26:00 Test Item Value Reference Range Interpretation [...] code = 31A) 80 IU/L <=78 H [id number] 04:18:00 Test Item Value Reference Range Interpretation [...] MORPH (test code = RBCMOR) NORMAL BLOOD [id number] 22:52:00 Test Item Value Reference Range Interpretation Comments Culture Observations (test NO GROWTH AFTER 5 code = COB1) DAYS BLOOD [id number] 22:52:00 Test Item Value Reference Range Interpretation Comments Culture Observations (test NO GROWTH AFTER 5 code = COB1) DAYS GLUCOMETER GLUCOSE- LAB USE [id number] 20:18:00 Test Item Value Reference Range Interpretation Comments GLUCOMETER (test code 132 mg/dL 70-100 H CLEANE D METERMeter ID: = GMG) [id number] tor: [address] R BABA TROPONIN [id number] 16:40:00 Test Item Value Reference Range Interpretation Comments TROPONIN I (test code = A84) <0.015 ng/mL 0.000-0.045 GLUCOMETER GLUCOSE- LAB USE [id number] 16:22:00 Test Item Value Reference Range Interpretation Comments GLUCOMETER (test code = 154 mg/dL 70-100 H Mete r ID: GMG) [id number] tor: [address] FEL[address] RAJU [id number] 15:13:00 Test Item Value Reference Range Interpretation Comments D-DIMER (test code = 266 ng/mL D-DU 0-234 H DDI) D-DIMER COMMENT (test *Level to rule out code = DDCOM) DVT or PE: <235 ng/mL D-DU* PRO TIME AND [id number] 15:13:00 Test Item Value Reference Range Interpretation [...] Code is ANTI-XA GLUCOMETER GLUCOSE- LAB USE [id number] 12:06:00 Test Item Value Reference Range Interpretation Comments GLUCOMETER (test code = 123 mg/dL 70-100 H Mete r ID: GMG) [id number] tor: 39[address] FELICIA RAJU C-REACTIVE PROTEIN [id number] 08:20:00 Test Item Value Reference Range Interpretation Comments CRP QUANT (test code 65.4 mg/L 0.0-2.9 H = CRPQ) Method Change (test Please note the code = METHOD) change in Method and the reference range COMPREHENSIVE METABOLIC [id number] 08:19:00 Test Item Value Reference Range Interpretation [...] code = 31A) 93 IU/L <=78 H [id number] 08:19:00 Test Item Value Reference Range Interpretation Comments FERRITIN (test code = A19) 538.4 ng/mL 26.0-388.0 H LDH-LACTIC [id number] 08:19:00 Test Item Value Reference Range Interpretation Comments LDH (test code = 33A) 438 IU/L 100-190 H [id number] 08:19:00 Test Item Value Reference Range Interpretation Comments MAGNESIUM (test code = 48A) 2.1 mg/dL 1.8-2.4 LEVETIRACETAM (KEPPRA) [id number] 08:16:00 Test Item Value Reference Range Interpretation [...] (test code = RBCMOR) NORMAL C-REACTIVE PROTEIN [id number] 06:21:00 Test Item Value Reference Range Interpretation Comments CRP QUANT (test code 65.4 mg/L 0.0-2.9 H = CRPQ) Method Change (test Please note the code = METHOD) change in Method and the reference range LEVETIRACETAM (KEPPRA) [id number] 06:20:00 Test Item Value Reference Range Interpretation Comments LEVETIRACETAM (test code 16.0 ug/mL = LEVET) LEVETEC (test code = LEVETIRACETAM LEVETC) LEVEL THEREPEUTIC LEVELS Drug dosage Trough (ug/mL) Peak (ug/mL) 500 mg BID 3.1-10.0 10.0-25.0 1000 mg BID 4.9-37.1 30.0-40.0 1500 mg BID 7.0-34.0 36.1-70.0 Toxic Level not established LDH-LACTIC [id number] 06:15:00 Test Item Value Reference Range Interpretation Comments LDH (test code = 33A) 438 IU/L 100-190 H [id number] 06:15:00 Test Item Value Reference Range Interpretation Comments FERRITIN (test code = A19) 538.4 ng/mL 26.0-388.0 H COMPREHENSIVE METABOLIC [id number] 05:52:00 Test Item Value Reference Range Interpretation [...] code = 31A) 93 IU/L <=78 H [id number] 05:48:00 Test Item Value Reference Range Interpretation [...] (test code = RBCMOR) NORMAL COMPREHENSIVE METABOLIC [id number] 05:22:00 Test Item Value Reference Range Interpretation [...] code = 31A) 98 IU/L <=78 H [id number] 05:16:00 Test Item Value Reference Range Interpretation [...] = RBCMOR) NORMAL GLUCOMETER GLUCOSE- LAB USE [id number] 20:13:00 Test Item Value Reference Range Interpretation Comments GLUCOMETER (test 127 mg/dL 70-100 H Result Not code = GMG) ConfirmedMeter ID: [id number] tor: [address] [id number] 07:18:00 Test Item Value Reference Range Interpretation Comments FERRITIN (test code = A19) 737.7 ng/mL 26.0-388.0 H LDH-LACTIC [id number] 07:18:00 Test Item Value Reference Range Interpretation Comments LDH (test code = 33A) 416 IU/L 100-190 H C-REACTIVE PROTEIN [id number] 07:07:00 Test Item Value Reference Range Interpretation Comments CRP QUANT (test code 38.5 mg/L 0.0-2.9 H = CRPQ) Method Change (test Please note the code = METHOD) change in Method and the reference range COMPREHENSIVE METABOLIC [id number] 06:51:00 Test Item Value Reference Range Interpretation [...] code = 31A) 86 IU/L <=78 H [id number] 06:46:00 Test Item Value Reference Range Interpretation [...] RBC MORPH (test code = RBCMOR) NORMAL [id number] 16:53:00 Test Item Value Reference Range Interpretation Comments FERRITIN (test code = A19) 878.2 ng/mL 26.0-388.0 H LDH-LACTIC [id number] 16:53:00 Test Item Value Reference Range Interpretation Comments LDH (test code = 33A) 425 IU/L 100-190 H LIVER [id number] 16:53:00 Test Item Value Reference Range Interpretation [...] = 31A) 88 IU/L <=78 H TROPONIN [id number] 16:46:00 Test Item Value Reference Range Interpretation Comments TROPONIN I (test code = A84) <0.015 ng/mL 0.000-0.045 DIRECT STREP GROUP [id number] 11:01:00 Test Item Value Reference Range Interpretation Comments Culture Observations NO BETA HEMOLYTIC (test code = COB1) STREPTOCOCCUS ISOLATED Direct Exam (test code NEGATIVE FOR STREP A = DE1) ANTIGEN [id number] 06:01:00 Test Item Value Reference Range Interpretation Comments MAGNESIUM (test code = 48A) 2.3 mg/dL 1.8-2.4 COMPREHENSIVE METABOLIC [id number] 06:01:00 Test Item Value Reference Range Interpretation [...] RBC MORPH (test code = RBCMOR) NORMAL [id number] 05:13:00 Test Item Value Reference Range Interpretation [...] RBC MORPH (test code = RBCMOR) NORMAL [id number] 19:03:00 Test Item Value Reference Range Interpretation Comments D-DIMER (test code = 273 ng/mL D-DU 0-234 H DDI) D-DIMER COMMENT (test *Level to rule out code = DDCOM) DVT or PE: <235 ng/mL D-DU* PRO TIME AND [id number] 19:03:00 Test Item Value Reference Range Interpretation [...] the FDA and the [employer] (CAP) are more stringent than those required for this test. Therefore, the result should be interpreted with caution and close attention to other clinical and epidemiological data DIRECT INFLUENZA A AND B [id number] 18:59:00 Test Item Value Reference Range Interpretation Comments Direct Exam (test PRESUMPTIVE NEGATIVE FOR code = DE1) THE PRESENCE OF INFLUENZA ANTIGEN BRAIN NATRIURETIC [id number] 18:56:00 Test Item Value Reference Range Interpretation Comments proBNP (test code = PBNP) 308 pg/mL 0-125 H COMPREHENSIVE METABOLIC [id number] 18:54:00 Test Item Value Reference Range Interpretation [...] (test code = RBCMOR) NORMAL URINALYSIS WITH [id number] 17:36:00 Test Item Value Reference Range Interpretation [...] UR (test code = USPERM) /HPF NONE Notes Date/Time Note Provider Source 2022-06-25 16:07:00-00:00 [id number] [place] [address] PATIENT NAME: NEENA TOBIAS ADMIT DATE: 06/22/22 ACCOUNT NO: [id number] ROOM NO: AGE: 36 REPORT TYPE: HISTORY AND PHYSICAL SEX: M ADMITTING PHYSICIAN: ATTENDING PHYSICIAN:Nathaniel Strange DDS ADMISSION DATE: 06/22/2022 07:01:00 HISTORY OF PRESENT ILLNESS: There has been no ch subhash in the patient's medical history. This patient is cleared for procedure. Dictated By: Nathaniel Strange DDS Date Dictated: 06/25/2022 16:07:33 Date Transcribed: 06/25/2022 21:50:38 MARGUERITE/LAURA Receipt ID: [id number] Authenticated by Nathaniel Strange DDS On 06/28 04:47:22 PM at 0447 PATIENT NAME: NEENA TOBIAS 68 2022-06-22 21:07:00-00:00 [id number] [address] PATIENT NAME: NEENA TOBIAS ADMIT DATE: 06/22/22 ACCOUNT NO: [id number] ROOM NO: AGE: 36 REPORT TYPE: REPORT OF OPERATION SEX: M ADMITTING PHYSICIAN: ATTENDING PHYSICIAN:Nathaniel Strange DDS OPERATION DATE: 06/22/2022 PREOPERATIVE DIAGNOSES: Dental decay, epilepsy. POSTOPERATIVE DIAGNOSES: Dental decay, epilepsy. PROCEDURE: Unlisted dentoalveolar structures. SURGEON PROCEDURE: Nathaniel Strange DDS. CRIME SCENE SPECIALIST: Justin Shelton. ESTIMATED BLOOD LOSS: 4 mL. ANESTHESIA: INDICATIONS: This patient was referred to me. Th is patient presents with a medical history of epilepsy, intellectually slade yed disorder. Because of this patient's behavior and medical history, it is de cided to provide dental treatment in the operating room under general an esthesia. All risks and benefits regarding all treatment options were di scussed with the parent. History and physical was requested and obtained prior to surgery. Tentative treatment plan was discussed with the parent. Pr oper informed consent, both verbal and written consent w ere obtained from the parent prior to starting. All questions were asked and answered prior to going to the operating room. PROCEDURE IN DETAIL: The patient was brought to the operating room in good condition. The patient had a dequate general anesthesia via oral CARLIE intubation. The tube was secured and the patient was draped in the routine manner for dental procedures. Dental radiographs we re taken and interpreted. Premoistened pharyngeal throat pack was p laced, nonrestorable teeth numbers 6, 7, and 31 were extracted using 3.6 mL 4% articaine 1:10 0,000 epinephrine. Tooth number 18 had a composite resin sikhism. The patient has c hronic periodontal disease. Four quadrant scaling and root planing. Hemostas is is achieved. The oral cavity was thoroughly irriga claudio and debrided of excess material. Approximately, a 50-minute procedure. The t hroat pack was removed and the patient was taken to the recovery room in good condition. All treatme nt and postoperative instructions were discussed with the par ent. The patient was advised to return to Dr. Strange's office in 1 year. If any pa in, swelling or infection develops, the parents were advised to contact Dr Helen Strange as soon as possible. PATIENT NAME: NEENA TOBIAS 68 Dictated By: Nathaniel Strange DDS Date Dictated: 06/22/2022 21:07:40 Date Transcribed: 06/22/2022 23:03:20 MWS/RACHEL Receipt ID: [id number] Authenticated by Nathaniel Strange DDS On 06/25 04:04:14 PM at 0404 PATIENT NAME: NEENA TOBIAS 68 2022-06-22 10:36:00-00:00 [facility] ([facility]) Justification for Procedure REPORT#:[id number] REPORT STATUS: Signed DATE:06/22/22 TIME: 1035 PATIENT: NEENA TOBIAS UNIT #: [id number] ROOM/BED: : 84 AGE: 36 SEX: M ATTEND: Nathaniel Strange DDS ADM AUTHOR: Nathaniel Strange DDS * ALL edits or amendments must be made on the Koko/computer document * Justification for Procedure Surgical/Medical Justification Date procedure to be performed: 06/22/22 Procedure to be performed: SCRP/FILLING/EXTRACTIONS Med/surg reason for urgency: INFECTION Pt.condition requiring urgency: AUTISM Electronically Signed by Nathaniel Strange DDS o n 06/22/22 at 1037 RPT #:[id number] END OF REPORT 2022-06-22 10:33:00-00:00 [facility] Op Note REPORT#:[id number] REPORT STATUS: Signed DATE:06/22/22 TIME: 103 PATIENT: NEENA TOBIAS UNIT #: [id number] ROOM/BED: : 84 AGE: 36 SEX: M ATTEND: Nathaniel Strange DDS ADM AUTHOR: Nathaniel Strange DDS * ALL edits or amendments must be made on the Koko/computer document * Op/Inv Proc Note - Brief Pre-procedure diagnosis: DENTAL DECAY Post-procedure diagnosis: same as pre procedure dx Procedures performed: SCRP/FILLING/EXTRACTIONS Primary Surgeon: KINSEY Antenna Installer(s): JUSTIN Findings: SCRPX4, FILLING TOOTH 18. EXTRACT TEETH 6,7,31. 3.6CC 4% ARTICAINE 1/100,000 EPI. 3-0 CHROMIC SUTURES/GELFOAM Complications: none Estimated blood loss in ml's: 4CC Specimens removed/altered: TEETH 6,7,31 Electronically Signed by Nathaniel Strange DDS o n 06/22/22 at 1035 RPT #:[id number] END OF REPORT 2022-04-28 13:08:21-00:00 VIKTORIYA CID [facility] CONSULTATION NEENA TOBIAS FACILITY: [facility] Billing #: [id number] Room: [address] [place] [address] MR #: [id number] : 1985 DATE OF ADMISSION: 04/25/2022 DATE OF CONSULTATION: 04/28/2022 REQUESTING PHYSICIAN: Gabino Jarquin MD [employer] FACULTY MEMBER: Viktoriya Cid DO Gastroenterology Consultation REASON FOR CONSULTATION: Oropharyngeal dysphagia with moderate protein caloric malnutrition. HISTORY OF PRESENT ILLNESS: This is a 36-year-ol d gentleman with a history of cerebral palsy, with subsequen t developmental delay and epilepsy, who has been hospitalized mu ltiple times with recurrent aspiration pneumonia. Presented t o the hospital this admission with concerns for repeat aspirati on pneumonia. While here, he has been seen by speech therapy, who deemed the patient a poor candidate for oral intake. Given his ongoing oropharyngeal dysphagia and subsequent malnutrit ion have been asked to consult on the patient for gastrostomy tube placement. PAST MEDICAL HISTORY: 1. Cerebral palsy. 2. Scoliosis. 3. Seizures. PAST SURGICAL HISTORY: Knee surgery. SOCIAL HISTORY: The patient lives with his siste r and hcrblih-vl-jdd. No history of alcohol, tobacco, or illicit drug use. FAMILY HISTORY: No history of GI illnesses. ALLERGIES: NO KNOWN DRUG ALLERGIES. MEDICATIONS: 1. Vitamin C 1000 mg p.o. daily. 2. Cefepime 1 g IV q.8 hours. 3. Zyrtec 10 mg p.o. daily. 4. Clobazam 10 mg p.o. daily. 5. Lovenox 40 mg subcu daily. 6. Glycopyrrolate 1 mg p.o. t.i.d. 7. DuoNeb 3 mL nebulized treatment q.4 hours. Vimpat 300 mg p.o. b.i.d., Keppra 2000 mg p.o. b .i.d., Flagyl 500 mg IV q.8 hours, MiraLAX 9 g p.o. daily, and vancomycin 1000 mg IV q.12 hours. REVIEW OF SYSTEMS: As above otherwise unobtainable secondary to the patient's dysarthria. PHYSICAL EXAMINATION: VITAL SIGNS: Blood pressure 110/68, heart rate 1 02, respiratory rate 18, and temperature 96.8. GENERAL: Well-developed gentleman, in no acute d istress. HEENT: Sclerae anicteric. Conjunctiva pale. Orop harynx moist. LUNGS: Clear bilaterally. HEART: Regular rate and rhythm. S1, S2. ABDOMEN: Soft, nontender. Positive bowel sounds. No organomegaly appreciated. EXTREMITIES: Trace edema. NEUROLOGIC: The patient is awake, cooperative ex am. LABORATORY DATA: White count 4.5, hemoglobin 11. 4, hematocrit 36.7, and platelet count 441. Sodium 144, potass ium 4.2, chloride 104, bicarb 26, creatinine 0.55, BUN 10 , and glucose 129. Coagulation studies on 04/25/2022, PT 11.4, INR 1.04. IMPRESSION: A 36-year-old gentleman with a histo ry of cerebral palsy with epilepsy presenting to hospital with aspiration pneumonia. He has had worsening oropharyngeal dy sphagia with subsequent moderate protein caloric malnutrition and is on a bowel regimen for constipation. PLAN: 1. We will keep the patient n.p.o. We will plan for upper endoscopy, gastrostomy tube placement later toda y. 2. Resume tube feeds and advance to goal rate. 3. Continue speech therapy evaluation and treatm ent. 4. Consider dietitian consultation to assist demar sanon with questions regarding gastrostomy tube. 5. Continue bowel regimen. 6. We will follow the patient with you. Please d o not hesitate to contact us if you have any questions. CAROLEE/MARIMAR /[phone]"
[2022-08-28 17:17] LABS: Absolute Lymphocytes (CBC) 1.8 K/uL (0.7-4.9); Hematocrit 39.5 % (39.6-49.0); Lymphocytes % 35.8 % (15.3-44.8); MPV 8.1 fL (7.6-11.3); RBC Red Blood Cell Count 4.59 M/uL (4.33-5.43)
[2022-08-28] MEDS ORDERED: NA CHLORIDE 0.9% 1,000 ML ONE (17:18)
[2022-08-28] MEDS ORDERED: PANTOPRAZOLE 40 MG INJ ONE (17:18)
[2022-08-28 17:21] LABS: Protime INR 1.02
[2022-08-28 17:34] LABS: Bilirubin Total 0.3 mg/dL (0.2-1.0)
--- NOTE | 2022-08-28 19:21 | RAD REPORT ---
EXAM DESCRIPTION: CT - Abdomen Pelvis W Contrast - 08/28/2022 6:27 pm CLINICAL HISTORY: LOWER GI BLEED COMPARISON: No comparisons TECHNIQUE: Thin cut axial CT imaging of the abdomen and pelvis was performed following intravenous a dministration of 100 mL Isovue 300. Multiplanar reformats were generated and reviewed. All CT scans are performed using dose optimization technique as appropriate and may include automated exposure control or mA/KV adjustment according to patient size. FINDINGS: Subsegmental bibasilar atelectatic changes more so on the right, overall with improved aer ation since the prior CT chest. No residual pleural effusion. Breathing motion artifact somewhat limits evaluation. The liver, spleen, and pancreas show no suspicious findings. Gallbladder and biliary tree are also wi thout suspicious finding. Symmetric renal function is seen with no hydronephrosis or suspicious renal mass. Percutaneous gastrostomy tube in place. No dilated bowel loops. Moderate to large stool burden in the sigmoid colon and rectum. Moderate wall thickening of the rectal bulb with mild presacral space fat stranding. No free air, free fluid or inflammatory stranding. No hernia, mass or bulky lymphadenopath y. Urinary bladder wall trabeculation and small diverticula. No suspicious bony findings. IMPRESSION: Moderate to large stool burden, with wall thickening of the rectal bulb, suggestive of s tercoral proctitis. Urinary bladder wall trabeculation and small diverticula, findings which suggest longstanding bladder wall. Interval improvement of aeration in the lung bases with residual subsegmental opacities more so on th e right, suggestive of atelectasis.
--- NOTE | 2022-08-28 19:41 | ER ---
Nurse's Notes [facility] Name: Kashif Lea Age: 36 yrs Sex: Male : 1985 Arrival Date: 08/28/2022 Time: 16:09 Bed 13 Private MD: Diagnosis: GI bleed Presentation: 08/28 16:14 Chief complaint: Parent and/or Guardian states: he had a significant amount of blood iw with his BM last night, had some blood today in his diaper , has never had previous episode of bleeding in past , no signs of pain, pt is non verbal hx of cerebral palsy, had fever this weekend along with some seizures. Coronavirus screen: At this time, the client does not indicate any symptoms associated with coronavirus-19. Ebola Screen: Patient negative for fever greater than or equal to 101.5 degrees Fahrenheit, and additional compatible Ebola Virus Disease symptoms Patient denies exposure to infectious person. Patient denies travel to an Ebola-affected area in the 21 days before illness onset. No symptoms or risks identified at this time. Initial Sepsis Screen: Does the patient meet any 2 criteria? No. Patient's initial sepsis screen is negative. Does the patient have a suspected source of infection? No. Patient's initial sepsis screen is negative. Risk Assessment: Do you want to hurt yourself or someone else? Patient reports no desire to harm self or others. Onset of symptoms was August 27, 2022. 16:14 Method Of Arrival: Wheelchair iw 16:14 Acuity: JESENIA 3 iw Historical: - Allergies: 16:16 No Known Allergies; iw - PMHx: 16:16 Cerebral Palsy; scoliosis; Seizure; iw - PSHx: 16:16 knees; PEG tube; iw - Immunization history:: Adult Immunizations up to date. - Social history:: Smoking status: Patient denies any tobacco usage or history of. Patient/guardian denies using alcohol. Screenin:05 [facility] ED Fall Risk Assessment (Adult) History of falling in the last 3 months, ld1 including since admission No falls in past 3 months (0 pts). Abuse screen: Denies threats or abuse. Denies injuries from another. Nutritional screening: No deficits noted. Tuberculosis screening: No symptoms or risk factors identified. Assessment: 17:05 Reassessment:. General: Appears in no apparent distress. comfortable, Behavior is calm, ld1 cooperative, appropriate for age. Pain: Unable to use pain scale. Does not appear to understand pain scale. Neuro: Level of Consciousness is awake, alert, obeys commands, Oriented to person, place, time, situation. Cardiovascular: Capillary refill < 3 seconds Patient's skin is warm and dry. Respiratory: Airway is patent Respiratory effort is even, unlabored. GI: Abdomen is round non-distended, PEG tube to abdomen. : No signs and/or symptoms were reported regarding the genitourinary system. EENT: No signs and/or symptoms were reported regarding the EENT system. Derm: No signs and/or symptoms reported regarding the dermatologic system. Musculoskeletal: No signs and/or symptoms reported regarding the musculoskeletal system. 19:07 Reassessment: Report received from AMY Bustillo. mb9 19:35 Reassessment: No changes from previously documented assessment. Patient and/or family mb9 updated on plan of care and expected duration. Pain level reassessed. Patient is alert, oriented x 3, equal unlabored respirations, skin warm/dry/pink. Vital Signs: 16:14 BP 113 / 80; Pulse 78; Resp 18; Temp 97.4; Pulse Ox 97% on R/A; Weight 64.86 kg; iw 19:34 BP 120 / 89; Pulse 74; Resp 16; Pulse Ox 98% on R/A; mb9 ED Course: 16:10 Patient arrived in ED. rg4 16:16 Triage completed. iw 16:17 Arm band placed on. iw 16:23 Zion Verma MD is Attending Physician. sp3 16:26 Iwona Murillo, AMY is Primary Nurse. ld1 16:49 Radiology exam delayed due to lab results not completed at this time. (BUN/Creatinine) jg10 IV insertion attempt and/or patient not having appropriate IV at this time. 17:05 Patient has correct armband on for positive identification. Placed in gown. Bed in low ld1 position. Call light in reach. Side rails up X2. preparation supervisor on. Pulse ox on. NIBP on. Door closed. Noise minimized. Warm blanket given. 17:05 No provider procedures requiring assistance completed. Inserted saline lock: 20 gauge ld1 in right forearm, using aseptic technique. Blood collected. 18:27 CT Abd/Pelvis - IV Contrast Only In Process Unspecified. EDMS 19:40 Alexys Woodall MD is Hospitalizing Provider. sp3 20:16 Patient admitted, IV remains in place. mb9 Administered Medications: 17:20 Drug: Pantoprazole IVP 40 mg Route: IVP; Site: right forearm; ld1 17:21 Drug: NS 0.9% IV 1000 ml Route: IV; Rate: 1 bolus; Site: right forearm; ld1 Medication: 17:05 VIS not applicable for this client. ld1 Outcome: 19:41 Decision to Hospitalize by Provider. sp3 20:15 Admitted to Med/surg room 228, with chart, Report called to AMY Horta9 20:15 Condition: stable 20:15 Instructed on discharge instructions, the need for admit. 20:40 Patient left the ED. mb9 Signatures: Dispatcher [employer] EDMS Elise Dangelo, RN Deepti Almanza rg4 Iwona Murillo RN RN ld1 Zion Verma MD MD sp [facility] Radha Wilder, RN RN mb9
--- NOTE | 2022-08-28 19:42 | EDPHYS ---
Physician Documentation [facility] Name: Kashif Lea Age: 36 yrs Sex: Male : 1985 Arrival Date: 08/28/2022 Time: 16:09 Bed 13 Private MD: ED Physician Zion Verma HPI: 08/28 16:31 This 36 yrs old Male presents to ER via Wheelchair with complaints of Bloody Stools. sp3 16:31 36-year-old male with cerebral palsy, scoliosis, seizure history presents with a 1 day sp3 history of lower GI bleeding with dark red blood mixed with stool. Patient has had 1 total episode of this since yesterday evening. No prior history of similar episodes and no other bleeding sites noted including gums, oral cavity. Patient has a PEG tube in place demonstrates no bleeding. History, physical and ROS severely limited secondary to cerebral palsy. Caregiver is his sister who communicates no vomiting, complaints of pain, any other abnormalities other than the one bloody stool.. Historical: - Allergies: 16:16 No Known Allergies; iw - PMHx: 16:16 Cerebral Palsy; scoliosis; Seizure; iw - PSHx: 16:16 knees; PEG tube; iw - Immunization history:: Adult Immunizations up to date. - Social history:: Smoking status: Patient denies any tobacco usage or history of. Patient/guardian denies using alcohol. ROS: 16:45 Constitutional: Negative for fever, chills, and weight loss, Eyes: Negative for injury, sp3 pain, redness, and discharge, Cardiovascular: Negative for chest pain, palpitations, and edema, Respiratory: Negative for shortness of breath, cough, wheezing, and pleuritic chest pain, Skin: Negative for injury, rash, and discoloration. 16:45 Unable to obtain ROS due to Limited secondary to cerebral palsy. Please see HPI for further details.. Exam: 16:46 Constitutional: This is a well developed, well nourished patient who is awake, alert, sp3 and in no acute distress. Head/Face: Normocephalic, atraumatic. ENT: Nares patent. No nasal discharge, no septal abnormalities noted. External auditory canals are clear. Oropharynx with no redness, swelling, or masses, exudates, or evidence of obstruction, uvula midline. Mucous membranes moist. Neck: Trachea midline, no thyromegaly or masses palpated, and no cervical lymphadenopathy. Supple, full range of motion without nuchal rigidity, or vertebral point tenderness. No Meningismus. Chest/axilla: Normal chest wall appearance and motion. Nontender with no deformity. No lesions are appreciated. Cardiovascular: Regular rate and rhythm with a normal S1 and S2. No gallops, murmurs, or rubs. Normal PMI, no JVD. No pulse deficits. Respiratory: Lungs have equal breath sounds bilaterally, clear to auscultation and percussion. No rales, rhonchi or wheezes noted. No increased work of breathing, no retractions or nasal flaring. Abdomen/GI: Soft, non-tender, with normal bowel sounds. No distension or tympany. No guarding or rebound. No evidence of tenderness throughout. Skin: Warm, dry with normal turgor. Normal color with no rashes, no lesions, and no evidence of cellulitis. Vital Signs: 16:14 BP 113 / 80; Pulse 78; Resp 18; Temp 97.4; Pulse Ox 97% on R/A; Weight 64.86 kg; iw 19:34 BP 120 / 89; Pulse 74; Resp 16; Pulse Ox 98% on R/A; mb9 MDM: 16:29 Patient medically screened. sp3 16:46 Data reviewed: vital signs, nurses notes, lab test result(s). ED course: 36-year-old sp3 with cerebral palsy now with 1 episode of likely lower GI bleeding. Laboratory values are pending including H\T\H and type and screen. No GI coverage is available however Dr. Manzo is here on surgical call who does colonoscopy and endoscopy. He saw patient at the bedside under consultation and the plan is to bring patient into the hospital if counts are low otherwise he will see them in clinic tomorrow and schedule colonoscopy and endoscopy for later this week. Patient's vital signs are normal I do not believe labs will be significantly abnormal to warrant admission. Outpatient follow-up plan is already been established and will likely be the disposition.. 19:32 ED course: Hemoglobin at 13.2 which is below baseline normal. There is concern for sp3 further bleeding and patient has had another bloody diaper. Will admit patient to hospital service and Dr. Manzo will be performing a scope in the morning. Patient will be prepped overnight. I discussed this with the sister who is on board with the plan.. 08/28 16:30 Order name: CBC with Diff; Complete Time: 17: sp3 08/28 16:30 Order name: CMP; Complete Time: 19: sp3 08/28 16:30 Order name: Lipase; Complete Time: 19: sp3 08/28 16:30 Order name: PT-INR; Complete Time: 17: sp3 08/28 16:30 Order name: Type And Screen; Complete Time: 19: sp3 08/28 16:30 Order name: UAM sp3 08/28 16:30 Order name: CT Abd/Pelvis - IV Contrast Only; Complete Time: 19: sp3 08/28 16:30 Order name: IV Saline Lock; Complete Time: 17: sp3 08/28 16:30 Order name: Labs collected and sent; Complete Time: 17: 3 08/28 16:30 Order name: NPO; Complete Time: 16:34 sp3 Administered Medications: 17:20 Drug: Pantoprazole IVP 40 mg Route: IVP; Site: right forearm; ld1 17:21 Drug: NS 0.9% IV 1000 ml Route: IV; Rate: 1 bolus; Site: right forearm; ld1 Disposition Summary: 08/28/22 19:41 Hospitalization Ordered Hospitalization Status: Observation sp3 Provider: Alexys Woodall sp3 Location: Telemetry/MedSurg (observation) sp3 Condition: Stable sp3 Problem: new sp3 Symptoms: have worsened sp3 Bed/Room Type: Standard 3 Room Assignment: 228(08/28/22 20:04) Diagnosis - GI bleed sp3 Forms: - Medication Reconciliation Form sp3 - SBAR form sp3 Signatures: Dispatcher [employer] EDMS Jessica Corrigan RN RN mw Williams, Irene, RN RN iw Attema, Lee, MARTIN-Isidoro CHAPINP-Carmen1 Iwona Murillo RN RN ld1 Zion Verma MD MD sp3 Corrections: (The following items were deleted from the chart) 20:04 19:41 sp3 mw
[2022-08-28] MEDS ORDERED: GOLYTELY 4000 ML FT ONE (20:00)
--- NOTE | 2022-08-28 20:03 | P.HP ---
Certification for Inpatient Patient admitted to: Observation With expected LOS: <2 Midnights Patient will require the following post-hospital care: None Practitioner: I am a practitioner with admitting privileges, knowledge of patient current condition, hospital course, and medical plan of care. Services: Services provided to patient in accordance with Admission requirements found in Title 42 Section 412.3 of the Code of Federal Regulations Patient History Date of Service: 08/28/22 Reason for admission: hematochezia History of Present Illness: 36-year-old male with history of cerebral palsy who is nonverbal at baseline with PEG tube in place, seizure disorder presents emergency department chief complaint of hematochezia. Caregiver reports 1 BM with maroon/red blood which occurred last night, had another 1 during stay in the emergency department. He was evaluated in the ER his labs are significant for initial hemoglobin 13.2 hematocrit 39.5 PT 11.2 INR 1.02 vital signs are stable, ED provider discussed case with general surgeryDr. Manzo who plans to perform endoscopy in the morning. Will admit, perform bowel prep. Allergies No Known Allergies Allergy (Verified 06/26/22 23:02) Home Medications: Amoxicillin 10 mg FT TID 06/26/22 Ascorbic Acid [Vitamin C] 1,000 mg FT DAILY 06/26/22 Cetirizine HCl 10 mg FT DAILY 06/26/22 Cholecalciferol (Vitamin D3) [Vitamin D3] 2,000 unit FT BEDTIME 06/26/22 Clobazam [Onfi] 10 mg FT BEDTIME 06/26/22 Glycopyrrolate 1 mg FT BID 06/26/22 Jevity 1.2 Ramses Liquid 300 ml FT QID 06/26/22 Lacosamide [Vimpat] 300 mg FT BID 06/26/22 Levetiracetam [Keppra] 2,000 mg FT BID 06/26/22 Zinc Gluconate [Zinc] 50 mg FT BID 06/26/22 - Past Medical/Surgical History Diabetic: No -: Celebral palsy -: Seizures -: bilateral leg surgery -: dental extraction Psychosocial/ Personal History: Lives at home with family, has caregiver - Family History Family History: Reviewed- Non-Contributory - Social History Smoking Status: Never smoker Alcohol use: No CD- Drugs: No Caffeine use: No Place of Residence: Home Review of Systems is unable to be obtained Physical Examination - Physical Exam General: Alert, In no apparent distress HEENT: Atraumatic, PERRLA, Mucous membr. moist/pink, EOMI, Sclerae nonicteric Neck: Supple, 2+ carotid pulse no bruit, No LAD, Without JVD or thyroid abnormality Respiratory: Clear to auscultation bilaterally, Normal air movement Cardiovascular: Regular rate/rhythm, Normal S1 S2 Capillary refill: <2 Seconds Gastrointestinal: Normal bowel sounds, No tenderness, Other (PEG in place) Musculoskeletal: No tenderness Integumentary: No rashes Neurological: Other (Nonverbal at baseline, will make eye contact/track, is alert) Lymphatics: No axilla or inguinal lymphadenopathy - Studies Laboratory Data (last 24 hrs) 08/28/22 17:00: PT 11.2, INR 1.02 08/28/22 17:00: Sodium 137, Potassium 4.0, BUN 17, Creatinine 0.49 L, Glucose 109 H, Total Bilirubin 0.3, AST 43 H, ALT 114 H, Alkaline Phosphatase 188 H, Lipase 15 08/28/22 17:00: WBC 5.00, Hgb 13.2 L, Hct 39.5 L, Plt Count 300 Assessment and Plan - Plan Assessment: Hematochezia Cerebral palsy Seizure disorder Plan: Hematochezia Repeat H&H tonight, n.p.o. after midnight, bowel prep ordered. General surgery to perform endoscopy in the morning. Cerebral palsy At baseline, nonverbal with PEG tube in place. Seizure disorder Continue home medications. DVT PPX: SCD Code status: Full Discharge Plan: Home Plan to discharge in: 24 Hours - Advance Directives Does patient have a Living Will: No Does patient have a Durable POA for Healthcare: Yes - Code Status/Comfort Care Code Status Assessed: Yes (Full code) Critical Care: No Time Spent Managing Pts Care (In Minutes): 55
[2022-08-28] MEDS: D5 0.45 NS 1,000 ML IV SCH (22:45)
[2022-08-28 23:18] VITALS: BMI 20.6
[2022-08-29 04:19] LABS: Absolute Lymphocytes (CBC) 2.3 K/uL (0.7-4.9); Hematocrit 35.1 % (39.6-49.0); Lymphocytes % 43.3 % (15.3-44.8); MPV 8.3 fL (7.6-11.3); RBC Red Blood Cell Count 4.13 M/uL (4.33-5.43)
[2022-08-29 04:37] LABS: Potassium 3.7 mEq/L (3.5-5.1)
[2022-08-29 08:20] LABS: Magnesium 1.8 mg/dL (1.6-2.4)
[2022-08-29] MEDS ORDERED: POTASSIUM 25 MEQ EFFERV TAB PO ONE (09:00)
[2022-08-29] MEDS: D5 0.45 NS 1,000 ML IV SCH ×3 (09:37→22:03)
--- NOTE | 2022-08-29 10:32 | CON ---
Date of Consultation: 08/28/2022 Brief History Of Present Illness: The patient is a 36-year-old male with a history of significant ce rebral palsy, who is nonverbal at baseline and has a history of PEG tube placement in the [facility], who has a history of seizure disorder with frequent seizures, who came in with new o nset of blood per rectum. The bleeding was dark, but voluminous associated with bowel movements, did not appear to be mixed with stool, but rather around the general vicinity of the stool. Picture was displayed, which showed significant amount of blood in the perianal with maroon stools at that point . The patient has not had a bowel movement since being presented to the hospital. The caregiver rep orted the issue. He is seen at the bedside with his sister, who is his key punch teacher as well. The patie nt appears hemodynamically stable in the ER at the time of my examination. Information was obtained from a combination of the chart and the patient's family, who is at bedside. Past Medical History: Significant for cerebral palsy, seizures. Past Surgical History: Includes PEG tube placement and revision as well as bilateral leg surgery and dental extractions. Social History: He lives at home with a caregiver. No history of smoking, alcohol, or recreational drug use. Allergies: NO KNOWN DRUG ALLERGIES. Medications: Include amoxicillin, vitamin C, cetirizine, vitamin D, Onfi, glycopyrrolate, Jevity ___ via the feeding tube b.i.d., and zinc. Review of Systems: Ten-point review of systems unable to obtain. Physical Examination: General: At the time of my examination; he is awake and alert, but nonverbal. HEENT: He is normocephalic. His sclerae were anicteric. Mucous membranes were moist. Oropharynx i s clear. Neck: Supple without JVD. Chest: Expansion and excursion. Cardiovascular: Regular rate and rhythm. Pulmonary: Clear to auscultation bilaterally. Abdomen: Soft, nontender, nondistended. There was a PEG tube in place. No evidence of blood in the PEG tube effluent. Upon extraction, there was no blood obvious in the PEG tube effluent. Abdomen i s otherwise soft and distended, nontender. Pelvis is stable. The patient does react and therefore I believe the exam is reliable. Extremities: Contractures and otherwise he moves upper extremities reasonably well. No clubbing, cy anosis, or edema. Skin: Warm and dry. Laboratory Data: Revealed a white blood cell count of 5.0, hemoglobin is 11.7, hematocrit 39.5, plat elet count was 300. PT 11.2, INR 1.02. Sodium 137, potassium 4.0, chloride 105, carbon dioxide 31, BUN 17, creatinine 0.4, glucose 109, calcium 9.5. AST is 43, ALT 114, alkaline phosphatase 118. Lip ase is 15. He had imaging, which included a CT of the abdomen and pelvis, officially read as moderat e to large stool burden with wall thickening of the rectal bulb suggestive of stercoral proctitis, ur inary bladder wall trabeculation, and small diverticula. Findings suggest longstanding bladder wall, interval improvement of aeration lungs with residual subsegmental opacities, more so on the right, s uggestive of atelectasis. Assessment And Plan: This is a 36-year-old male, who comes in with gastrointestinal bleeding, likely lower source based on the information above. 1.IV fluid hydration. 2.We will recheck hemoglobin in the morning. 3.Serial exams and check the bloody movements. 4.I have discussed bowel prep in anticipation of a colonoscopy through the PEG tube. The patient's family agrees to proceed as indicated. I have discussed risks, benefits, and alternatives of colonos copy including, but not limited to bleeding, infection, damage to surrounding tissues, need for furth er operation and procedures, trouble related to anesthesia, heart attack, strokes, blood clots, and n eed for ongoing procedures and surgery. The patient's family agrees to proceed as indicated. Thank you for this interesting consult. МАРИЯ/MARIMAR Voice ID: [id number] Report ID: [id number]
--- NOTE | 2022-08-29 13:10 | P.PN ---
Subjective Date of Service: 08/29/22 Chief Complaint: hematochezia Subjective: No new changes, NPO Physical Examination - Vital Signs Temperature: 97.7 F Blood Pressure: 124/83 Pulse: 63 Respirations: 17 Pulse Ox (%): 96 - Physical Exam General: Alert HEENT: Atraumatic, Normocephalic Neck: Supple Respiratory: Normal air movement Cardiovascular: Regular rate/rhythm, Normal S1 S2 Gastrointestinal: Soft and benign Musculoskeletal: No swelling - Studies Laboratory Data (last 24 hrs) 08/28/22 17:00: PT 11.2, INR 1.02 08/28/22 17:00: Sodium 137, Potassium 4.0, BUN 17, Creatinine 0.49 L, Glucose 109 H, Total Bilirubin 0.3, AST 43 H, ALT 114 H, Alkaline Phosphatase 188 H, Lipase 15 08/28/22 17:00: WBC 5.00, Hgb 13.2 L, Hct 39.5 L, Plt Count 300 Assessment And Plan - Plan Hematochezia: Present on admission. Surgeon evaluating for possible colonoscopy. Prep was not good overnight today. Continue GoLytely by PEG tube pending preparation for colonoscopy in a.m. He will be kept n.p.o. for now except for medications. History of mental health: We will continue antiseizure medications. Anemia: Deemed secondary to blood loss.. Progressive transition of hemoglobin drop to less than 7.0. DVT prophylaxis: SCDs Disposition: Pending colonoscopy for management of rectal bleeding.
[2022-08-30] MEDS: D5 0.45 NS 1,000 ML IV SCH ×4 (02:35→22:35)
[2022-08-30 04:07] LABS: Absolute Lymphocytes (CBC) 1.5 K/uL (0.7-4.9); Lymphocytes % 32.1 % (15.3-44.8); MCV 84.6 fL (80-100); MPV 8.3 fL (7.6-11.3); RBC Red Blood Cell Count 4.38 M/uL (4.33-5.43)
[2022-08-30 04:16] LABS: Magnesium 1.7 mg/dL (1.6-2.4); Potassium 3.5 mEq/L (3.5-5.1)
[2022-08-30] MEDS ORDERED: MAGNESIUM SULFATE 1 gm IVPB 1 GM/100 ML BAG IV ONE (07:00)
[2022-08-30] MEDS ORDERED: KCL 20 MEQ/100 mL IVPB 20 MEQ/100 ML BAG IV SCH (08:00)
--- NOTE | 2022-08-30 08:41 | P.PN ---
Subjective Date of Service: 08/30/22 Chief Complaint: hematochezia Subjective: No new changes, No C/O voiced Physical Examination - Vital Signs Temperature: 96.8 F Blood Pressure: 108/74 Pulse: 83 Respirations: 16 Pulse Ox (%): 97 - Physical Exam General: Alert HEENT: Atraumatic, Normocephalic Neck: Supple Respiratory: Normal air movement Cardiovascular: Regular rate/rhythm, Normal S1 S2 Gastrointestinal: Soft and benign Neurological: Normal speech Assessment And Plan - Plan Hematochezia: Present on admission. Colonoscopy planned for today. We will follow recommendation post endoscopy. History of mental health: We will continue antiseizure medications. Anemia: Deemed secondary to blood loss. Stable hemoglobin.. PRC transfusion if hemoglobin drop to less than 7.0. DVT prophylaxis: SCDs Disposition: Pending colonoscopy for management of rectal bleeding.
[2022-08-30] MEDS ORDERED: Ringers Lactate 1,000 ML IV ONE (13:26)
[2022-08-30] MEDS ORDERED: propofoL 200 MG/20 ML VIAL IV ONE ×3 (13:47→13:49)
[2022-08-30] MEDS ORDERED: LIDOCAINE 2% MPF 5 ML VIAL ONE (13:47)
[2022-08-30] MEDS: CA POLYCARBOPHIL (FIBERCON) 625 MG TAB PO SCH (20:12)
[2022-08-30 22:12] VITALS: O2SAT 98
[2022-08-31 04:37] VITALS: TEMP 96.8
[2022-08-31] MEDS: D5 0.45 NS 1,000 ML IV SCH ×2 (05:52→08:35)
[2022-08-31 06:27] LABS: Magnesium 1.9 mg/dL (1.6-2.4); Potassium 3.8 mEq/L (3.5-5.1)
[2022-08-31] MEDS: CA POLYCARBOPHIL (FIBERCON) 625 MG TAB PO SCH (08:28)
[2022-08-31 08:51] VITALS: BP 115/78
[2022-08-31] MEDS ORDERED: POTASSIUM 25 MEQ EFFERV TAB PO ONE (09:00)
== END 2022-08-31 10:33 | disposition home health service (06) | DRG 394 ==
LOC: ER 16:09 → ERHOLD 19:47 → 2ND 20:17 → OBSVTOIN 08-30 16:25
PROVIDERS: ADMIT Internal Medicine Nephrology; ATTEND Hospitalist
PROC: 0DBP8ZX Excision of Rectum, Via Natural or Artificial Opening Endoscopic, Diagnostic (ICD-10-PCS; principal; 2022-08-30 12:30)
DX: K62.89 Other specified diseases of anus and rectum (principal); K92.1 Melena; D64.9 Anemia, unspecified; G80.9 Cerebral palsy, unspecified; G40.909 Epilepsy, unspecified, not intractable, without status epilepticus; Z79.899 Other long term (current) drug therapy
CPT/HCPCS: 36415; 74177; 80048; 80053; 83690; 83735; 85018; 85025; 85610; 86850; 86900; 86901; 88305; 96374; 99285; C9113; G0378; J2001; J2704; J3475; J3480; J7030; J7120; J7799; Q9967

== ENCOUNTER 2023-11-14 12:38 | Inpatient (IN) | payer OTHER ==
[2023-11-14 13:48] LABS: Absolute Lymphocytes (CBC) 1.1 K/uL (0.7-4.9); Absolute Monocytes 0.4 K/uL (0.1-1.3); Absolute Neutrophil 7.4 K/uL (1.8-8.0); Basophils % 0.2 % (0-1.3); Eosinophils % 0.2 % (0-4.4); Hematocrit 44.7 % (39.6-49.0); Hemoglobin 14.9 g/dL (13.6-17.9); Lymphocytes % 11.9 % (15.3-44.8); MCH 31.3 pg (27.0-35.0); MCHC 33.3 g/dL (32.0-36.0); Neutrophils % 82.7 % (41.7-73.7); Nucleated Red Blood Cells % 0.1 % (0-0); Platelets 234 thou/uL (152-406); RBC Red Blood Cell Count 4.75 M/uL (4.33-5.43); Red Cell Distribution Width 13.3 % (12.1-15.2)
[2023-11-14 13:55] LABS: PT Prothrombin Time 11.3 SECONDS (9.4-12.5); PTT, Activated Partial Thromb 43.6 SECONDS (24.3-36.9); Protime INR 1.01
[2023-11-14 13:59] LABS: Albumin 3.3 g/dL (3.4-5.0); Albumin/Globulin Ratio 0.6 (1.1-1.8); Anion Gap 9.7 mEq/L (5.0-15.0); Bilirubin Total 0.3 mg/dL (0.2-1.0); Globulin 5.2 g/dL (2.3-3.5); Potassium 3.7 mEq/L (3.5-5.1); Protein, Total 8.5 g/dL (6.4-8.2)
--- NOTE | 2023-11-14 14:12 | RAD REPORT ---
EXAM DESCRIPTION: CT - Thorax Wo Con CLINICAL HISTORY: Chest pain CONGESTION COMPARISON: Thorax Wo Con dated 10/31/2023; Chest Single View dated 09/11/2023; Chest Single View dated 08/28/2023; Chest Abdomen Pelvis W Cont dated 08/28/2023 FINDINGS: There is mild atelectasis is seen in both medial lung bases. No focal consolidation to ind icate pneumonia seen. No pleural thickening or pleural effusion. No pneumothorax. No axillary, mediastinal or hilar adenopathy. No concerning bony finding. Gastrostomy tube is present. Punctate renal stones bilaterally noted. Mil d left hydronephrosis suspected. All CT scans are performed using dose optimization technique as appropriate and may include automated exposure control or mA/KV adjustment according to patient size. IMPRESSION: Mild atelectasis is seen in both lung bases likely related to postinflammatory residual. No focal consolidation seen.
--- NOTE | 2023-11-14 14:13 | RAD REPORT ---
EXAM DESCRIPTION: RAD - Chest Single View - 11/14/2023 1:38 pm CLINICAL HISTORY: COUGH Chest pain. COMPARISON: Chest Single View dated 10/31/2023; Chest Single View dated 09/11/2023; Chest Single View d ated 08/28/2023; Chest Single View dated 08/28/2023; Chest Abdomen Pelvis W Cont dated 08/28/2023; Chest For Pe Angio dated 05/13/2023 FINDINGS: Portable technique limits examination quality. Mild atelectasis is present both medial lung bases. The lungs are otherwise clear. The heart is jhon l in size. No displaced fractures.
--- NOTE | 2023-11-14 17:10 | ER ---
Nurse's Notes [facility] Name: Kashif eLa Age: 38 yrs Sex: Male : 1985 Arrival Date: 11/14/2023 Time: 12:38 Bed 20 Private MD: Diagnosis: Hypoxemia;Disease of upper respiratory tract, unspecified Presentation: 11/13 12:44 Chief complaint: Parent and/or Guardian states: they were instructed by his doctors to kc6 come here for low O2, as low as 82%. states he was treated for bacterial pneumonia 3 weeks ago. Coronavirus screen: At this time, the client does not indicate any symptoms associated with coronavirus-19. Ebola Screen: No symptoms or risks identified at this time. Initial Sepsis Screen: Does the patient meet any 2 criteria? HR > 90 bpm. Does the patient have a suspected source of infection? No. Patient's initial sepsis screen is negative. Risk Assessment: Do you want to hurt yourself or someone else? Patient reports no desire to harm self or others. Onset of symptoms was November 14, 2023. 12:44 Method Of Arrival: Wheelchair kc 12:44 Acuity: JESENIA 3 kc6 Triage Assessment: 12:46 General: Appears in no apparent distress. comfortable, well groomed, well developed, kc Behavior is calm, cooperative, appropriate for age. Pain: Unable to use pain scale. Does not appear to understand pain scale. FLACC scale score is 0 out of 10. Neuro: Level of Consciousness is awake, alert, Oriented to person, Appropriate for age. Cardiovascular: Capillary refill < 3 seconds. Respiratory: Reports shortness of breath at rest on exertion cough that is productive, Airway is patent Trachea midline Respiratory effort is even, unlabored, Respiratory pattern is regular, symmetrical, Breath sounds with crackles bilaterally. Onset: The symptoms/episode began/occurred yesterday, the patient has moderate shortness of breath. Derm: No signs and/or symptoms reported regarding the dermatologic system. Skin is intact, is healthy with good turgor, Skin is pink, warm \T\ dry. Historical: - Allergies: 12:46 tramadol (Not true allergy/interacts with pt's seizure medication); kc6 - PMHx: 12:46 Cerebral Palsy; scoliosis; Seizure; Pneumonia; kc6 - PSHx: 12:46 knees; kc6 12:51 feeding tube; kc6 - Immunization history:: Flu vaccine is not up to date. - Infectious Disease History:: Denies. - Social history:: Smoking status: . Screenin:47 [facility] ED Fall Risk Assessment (Adult) History of falling in the last 3 months, db including since admission No falls in past 3 months (0 pts) Confusion or Disorientation Yes (5 pts) Intoxicated or Sedated No (0 pts) Impaired Gait No (0 pts) Mobility Assist Device Used No (0 pt) Altered Elimination Yes (1 pt) Score/Fall Risk Level 3 or more points = High Risk Oriented to surroundings, Maintained a safe environment, Hourly rounding (assess needs \T\ fall precautionary measures) done. Abuse screen: Denies threats or abuse. Denies injuries from another. Nutritional screening: No deficits noted. Tuberculosis screening: No symptoms or risk factors identified. Assessment: 12:50 Reassessment: Dr. Johnston in triage assessing patient. pt placed on 3L via NC. SPO2 is 94%. kc6 14:30 Reassessment: Patient appears in no apparent distress at this time. Patient and/or db family updated on plan of care and expected duration. Pain level reassessed. RT AT PATIENT BEDSIDE FOR SPUTUM COLLECTION. 15:12 General: Appears in no apparent distress. comfortable, Behavior is calm, cooperative. db Neuro: Level of Consciousness is PATIENT MOANS AND . Oriented to. Cardiovascular: Capillary refill < 3 seconds Patient's skin is warm and dry. Rhythm is regular. Respiratory: Airway is patent Respiratory effort is even, unlabored, Respiratory pattern is regular, symmetrical. 17:00 Reassessment: Patient appears in no apparent distress at this time. Patient and/or db family updated on plan of care and expected duration. Pain level reassessed. 18:30 Reassessment: Patient appears in no apparent distress at this time. Patient and/or db family updated on plan of care and expected duration. Pain level reassessed. PT CHANGED INTO A GOWN AND BRIEF CHHANGED. Vital Signs: 12:44 BP 128 / 80; Pulse 95; Resp 23 S; Pulse Ox 90% on R/A; Weight 68.04 kg; Height 5 ft. 11 kc6 in. (R); 15:00 BP 130 / 108; Pulse 85; Resp 18; Pulse Ox 93% on 3 lpm NC; db 16:30 BP 110 / 88; Pulse 85; Resp 16; Pulse Ox 95% on R/A; db 17:30 BP 106 / 86; Pulse 76; Resp 14; Temp 97.8; Pulse Ox 96% ; db 18:30 BP 101 / 67; Pulse 77; Resp 16; Pulse Ox 97% on 2 lpm NC; db 19:30 BP 110 / 82; Pulse 79; Resp 16; Temp 97.8; Pulse Ox 97% on 2 lpm NC; cp4 12:44 Body Mass Index 20.92 (68.04 kg, 180.34 cm) kc6 ED Course: 12:42 Patient arrived in ED. mg5 12:46 Triage completed. kc6 12:46 Arm band placed on. kc6 12:58 Ean Johnston MD is Attending Physician. bo1 13:15 First set of blood cultures drawn by me. db 13:24 Initial lab(s) drawn, by me, sent to lab. Second set of blood cultures drawn by me. db Inserted saline lock: 20 gauge in right wrist, using aseptic technique. Blood collected. Flushed with 10 mL NS. 13:[address] db 13:28 Mirna Hernandez, RN is Primary Nurse. db 13:31 CT Chest Wo Con In Process Unspecified. EDMS 13:40 XRAY CXR (1 view) In Process Unspecified. EDMS 14:43 Sputum Culture Sent. kc6 16:47 Patient has correct armband on for positive identification. Bed in low position. Call db light in reach. Side rails up X2. FAMILY IS AT BEDSIDE. Provided Education on: DISCHARGE. Client placed on continuous cardiac and pulse oximetry monitoring. NIBP monitoring applied. surveillance monitor on. Pulse ox on. NIBP on. Warm blanket given. Pillow given. 17:07 Pool Nevarez MD is Hospitalizing Provider. bo1 19:04 No provider procedures requiring assistance completed. Patient admitted, IV remains in db place. Administered Medications: No medications were administered Medication: 16:48 VIS not applicable for this client. db Outcome: 17:09 Decision to Hospitalize by Provider. bo1 19:04 Admitted to ER Hold. Please see [facility] for further documentation. db 19:04 Condition: stable 19:04 Instructed on the need for admit, 19:44 Patient left the ED. cp4 Signatures: Dispatcher [employer] Ciarra Augustin RN RN kc6 Mirna Hernandez RN RN Bree Estrella mg5 Harleen Motta cp4 Ean Johnston MD MD bo1 Corrections: (The following items were deleted from the chart) 13:01 12:44 BP 128 / 80; Pulse 95bpm; Resp 19bpm; Spontaneous; Pulse Ox 90% RA; 68.04 kg; kc6 Height 5 ft. 11 in. Reported; BMI: 20.9; kc6 13:01 12:50 Reassessment: Dr. Johnston in triage assessing patient kc6 kc6 15:14 14:30 Reassessment: RT AT PATIENT BEDSIDE FOR SPUTUM COLLECTION jesus manuel kne
--- NOTE | 2023-11-14 17:10 | EDPHYS ---
Physician Documentation [facility] Name: Kashif Lea Age: 38 yrs Sex: Male : 1985 Arrival Date: 11/14/2023 Time: 12:38 Bed 20 Private MD: ED Physician Ean Johsnton HPI: 11/13 17:09 This 38 yrs old Male presents to ER via Wheelchair with complaints of Shortness Of bo1 Breath. 17:09 The patient has shortness of breath at rest, and the patient has a history of Recent dx bo1 of pneumonia - 10/30. Onset: The symptoms/episode began/occurred gradually. Duration: The symptoms Johny today. Associated signs and symptoms: Pertinent positives: non-productive cough, "gurgling noises" and low oxygen saturation of 83% (pulse oximetry) - finger unit per sister and caregiver. Severity of symptoms: At their worst the symptoms were moderate severe today. The patient has experienced similar episodes in the past, several times, and the symptoms today are exactly the same, 10/30, dx with pneumonia - treated with azithromycin and cephalexin PO - course of both completed. Pt's sister has started some guaifenesin to loosen up the mucus. Pt does not cough voluntarily or on command. His baseline is CP and autism. Recent dx of "bacterial pneumonia". Historical: - Allergies: 12:46 tramadol (Not true allergy/interacts with pt's seizure medication); kc6 - PMHx: 12:46 Cerebral Palsy; scoliosis; Seizure; Pneumonia; kc6 - PSHx: 12:46 knees; kc6 12:51 feeding tube; kc6 - Immunization history:: Flu vaccine is not up to date. - Infectious Disease History:: Denies. - Social history:: Smoking status: . ROS: 17:19 Constitutional: Negative for fever. bo1 17:19 Constitutional: Negative for fever, AMS, 17:19 Respiratory: Positive for Congested sound/gurgling noises from the mouth, 17:19 All other systems are negative, Exam: 17:30 Constitutional: This is a well developed, well nourished patient who is awake, alert, bo1 and non verbal. Appears to recognize his caregiver and sister 17:30 Head/face: Exam is negative for acute changes, 17:30 Neck: Exam negative for acute changes, 17:30 Chest/axilla: Inspection: no acute changes, 17:30 ECG was reviewed by the Attending Physician. 17:30 Respiratory: the patient does not display signs of respiratory distress, Respirations: normal, Breath sounds: rhonchi, + upper airway congestion. "some gurgling" when head is turned, 17:30 Neuro: seizure activity, is not displayed by the patient, Baseline non-verbal state in a specialized custom wheelchair, 17:35 Abdomen/GI: Recent tube change to a "J" type, bo1 Vital Signs: 12:44 BP 128 / 80; Pulse 95; Resp 23 S; Pulse Ox 90% on R/A; Weight 68.04 kg; Height 5 ft. 11 kc6 in. (R); 15:00 BP 130 / 108; Pulse 85; Resp 18; Pulse Ox 93% on 3 lpm NC; db 16:30 BP 110 / 88; Pulse 85; Resp 16; Pulse Ox 95% on R/A; db 17:30 BP 106 / 86; Pulse 76; Resp 14; Temp 97.8; Pulse Ox 96% ; db 18:30 BP 101 / 67; Pulse 77; Resp 16; Pulse Ox 97% on 2 lpm NC; db 19:30 BP 110 / 82; Pulse 79; Resp 16; Temp 97.8; Pulse Ox 97% on 2 lpm NC; cp4 12:44 Body Mass Index 20.92 (68.04 kg, 180.34 cm) kc6 MDM: 12:58 Patient medically screened. bo1 17:16 Differential diagnosis: Bronchitis pneumonia, reactive airway disease. Data reviewed: bo1 vital signs, old medical records, lab test result(s), CBC, urinalysis, LDH and lactic acid, EKG, radiologic studies, CT scan, plain films. 17:17 Consideration of Admission/Observation Patient was admitted/placed on observation. bo1 Management of patient was discussed with the following: Hospitalist: Dr Roque RUCKER. Historians other than the Patient: Family Member: Sister/caregiver. ED course: Pt is less congested but saturation drops to 88% w/o oxygen and up to 94% with 2 litres NC. Discussed home oxygen and pulmonary toilet with sister. 11/13 12:59 Order name: Blood Culture Adult (2) bo1 11/13 12:59 Order name: CBC with Diff; Complete Time: 15:06 bo1 11/13 12:59 Order name: CMP; Complete Time: 15:06 bo1 11/13 12:59 Order name: Lactate w/ 2H reflex if indic.; Complete Time: 15:06 bo1 11/13 12:59 Order name: Protime (+inr); Complete Time: 15:06 bo1 11/13 12:59 Order name: Ptt, Activated; Complete Time: 15:06 bo1 11/13 12:59 Order name: LDH; Complete Time: 15:06 bo1 11/13 12:59 Order name: Sputum Culture bo1 11/13 17:25 Order name: CBC with Automated Diff EDMS 11/13 17:25 Order name: CBC with Automated Diff EDMS 11/13 17:25 Order name: Comprehensive Metabolic Panel EDMS 11/13 17:25 Order name: Comprehensive Metabolic Panel EDMS 11/13 17:25 Order name: Lipid Profile EDMS 11/13 17:25 Order name: Lipid Profile EDMS 11/13 17:25 Order name: Magnesium EDMS 11/13 17:25 Order name: Magnesium EDMS 11/13 17:25 Order name: NT PRO-BNP EDMS 11/13 17:25 Order name: NT PRO-BNP EDMS 11/13 17:25 Order name: Phosphorus EDMS 11/13 17:25 Order name: Phosphorus EDMS 11/13 13:02 Order name: XRAY CXR (1 view); Complete Time: 15:06 bo1 11/13 13:08 Order name: CT Chest Wo Con; Complete Time: 15:06 bo1 11/13 17:27 Order name: RC SPUTUM COLLECTION / TX EDMS 11/13 17:25 Order name: CONS Physician Consult EDMS 11/13 12:59 Order name: Accucheck; Complete Time: 14:43 bo1 11/13 12:59 Order name: Cardiac monitoring; Complete Time: 14:25 bo1 11/13 12:59 Order name: EKG - Nurse/Tech; Complete Time: 14:25 bo1 11/13 12:59 Order name: IV Saline Lock - Large Bore; Complete Time: 13:30 bo1 11/13 12:59 Order name: Labs collected and sent; Complete Time: 13:30 bo1 11/13 12:59 Order name: O2 Per Protocol; Complete Time: 13:29 bo1 11/13 12:59 Order name: O2 Sat Monitoring; Complete Time: 13:29 bo1 11/13 12:59 Order name: Vital Signs; Complete Time: 14:25 bo1 EC:30 Rate is 88 beats/min. Rhythm is regular. QRS [place] is Normal. [place] interval is normal. QRS bo1 interval is normal. QT interval is normal. No Q waves. T waves are Normal. No ST changes noted. Clinical impression: Normal ECG. Interpreted by me. Reviewed by me. Administered Medications: No medications were administered Disposition Summary: 11/14/23 17:09 Hospitalization Ordered Notes: Hospitalization Status: Observation bo1 Provider: Pool Nevarez boJose Antonio Location: Telemetry/MedSurg (observation) bo1 Condition: Fair bo1 Problem: chronic bo1 Symptoms: are unchanged bo1 Bed/Room Type: Standard bo1 Room Assignment: 229(11/14/23 17:41) em1 Diagnosis - Hypoxemia bo1 - Disease of upper respiratory tract, unspecified bo1 Forms: - Medication Reconciliation Form bo1 - SBAR form bo1 - Leadership Thank You Letter bo1 Signatures: Dispatcher [employer] Baldev Devlin em1 Ciarra Barry RN RN kc6 OeiEan MD MD bo1 Corrections: (The following items were deleted from the chart) 12:59 12:59 BLOOD CULTURE*+BA.LAB.BRZ ordered. EDMS EDMS 12:59 12:59 CBC+H.LAB.BRZ ordered. EDMS EDMS 12:59 12:59 COMPREHENSIVE METABOLIC PANEL+C.LAB.BRZ ordered. EDMS EDMS 12:59 12:59 LACTATE+C.LAB.BRZ ordered. EDMS EDMS 12:59 12:59 PROTIME (+INR)+COAG.LAB.BRZ ordered. EDMS EDMS 12:59 12:59 PTT, ACTIVATED+COAG.LAB.BRZ ordered. EDMS EDMS 12:59 12:59 LACTIC DEHYDROGENASE+C.LAB.BRZ ordered. EDMS EDMS 17:41 17:09 bo1 em1
[2023-11-14] MEDS ORDERED: ACETAMINOPHEN 500 MG TAB PO PRN (17:18)
[2023-11-14] MEDS ORDERED: ONDANSETRON 4 MG/2 ML VIAL IV PRN ×2 (17:18→21:11)
--- NOTE | 2023-11-14 17:25 | P.HP ---
Certification for Inpatient Patient admitted to: Observation With expected LOS: <2 Midnights Patient will require the following post-hospital care: None Practitioner: I am a practitioner with admitting privileges, knowledge of patient current condition, hospital course, and medical plan of care. Services: Services provided to patient in accordance with Admission requirements found in Title 42 Section 412.3 of the Code of Federal Regulations Patient History Date of Service: 11/14/23 Reason for admission: Hypoxemia; shortness of breath History of Present Illness: Patient is a 38-year-old gentleman came to the hospital with shortness of breath. Patient was found to be hypoxic and admitted to the hospital. Patient was in the hospital few weeks ago with aspiration debility. Patient was discharged and has been doing well but he still been a little congested. Patient also had a breakthrough seizure during last hospitalization and was started on antiepileptics. Patient has been on 5 antiepileptics at this time. Patient's sister states they are reducing a couple of these. Patient has been congested quite a bit. Patient's compliance engineer states that his oxygen level has been dropping so they brought back into the hospital. In the ER patient appears to have some consolidative changes. Patient looks to have bilateral pneumonia. Will continue with IV antibiotic therapy, and patient will be admitted to the hospital for further evaluation. Allergies tramadol Adverse Reaction (Verified 05/10/23 18:01) Anaphylaxis Home Medications: Cholecalciferol (Vitamin D3) [Vitamin D3] 2,000 unit FT BEDTIME 06/26/22 Clobazam [Onfi] 10 mg FT BEDTIME 06/26/22 Jevity 1.2 Ramses Liquid See Rx Instructions .ROUTE .COMPLEX 06/26/22 Lacosamide [Vimpat] 300 mg FT BID 06/26/22 Levetiracetam [Keppra] 2,000 mg FT BID 06/26/22 Zinc Gluconate [Zinc] 50 mg FT BID 06/26/22 Cetirizine HCl [Zyrtec] 10 mg FT DAILY 05/10/23 Ascorbic Acid [Vitamin C] 1,000 mg PO DAILY 11/14/23 Esomeprazole Magnesium 10 mg PO BID 11/14/23 Guaifenesin [Cough Syrup] 10 ml PO BID 11/14/23 Polyethyl Gly 3350 [Glycolax*] 17 gm FT 1300 11/14/23 Zonisamide [Zonisade] 2.5 ml PO BID 11/14/23 - Past Medical/Surgical History Diabetic: No -: Celebral palsy -: Seizures -: scoliosis -: CONSTIPATION -: bilateral leg surgery -: dental extraction -: PEG Tube Psychosocial/ Personal History: Lives at home with family, has caregiver, DARLENE PINEDA TEL# [phone] - Family History Father Medical History: Heart disease, Hypertension, Cancer Notes: skin Ca Mother Medical History: Lung disease Notes: Covid - Social History Smoking Status: Never smoker Alcohol use: No CD- Drugs: No Caffeine use: No Review of Systems 10-point ROS is otherwise unremarkable Physical Examination - Vital Signs Temperature: 98 F (Reviewed) Blood Pressure: 120/70 Pulse: 80 Respirations: 18 Pulse Ox (%): 85 - Physical Exam General: Alert, Confused HEENT: Atraumatic, PERRLA, Mucous membr. moist/pink, EOMI, Sclerae nonicteric Neck: Supple, 2+ carotid pulse no bruit, No LAD, Without JVD or thyroid abnormality Respiratory: Diminished, Expiratory wheezes Cardiovascular: Regular rate/rhythm, Normal S1 S2, No murmurs Gastrointestinal: Normal bowel sounds, Soft and benign, Non-distended, No tenderness Musculoskeletal: No clubbing, No swelling, No tenderness Integumentary: No rashes Neurological: Sensation intact, Cranial nerves 3-12 intact, Abnormal gait, Abnormal speech, Abnormal strength Lymphatics: No axilla or inguinal lymphadenopathy - Studies Laboratory Data (last 24 hrs) 11/14/23 11/14/23 11/14/23 13:24 13:24 13:24 WBC 8.90 Hgb 14.9 Hct 44.7 Plt Count 234 PT 11.3 INR 1.01 APTT 43.6 H Sodium 136 Potassium 3.7 BUN 18 Creatinine 0.50 L Glucose 119 H Total Bilirubin 0.3 AST 39 H ALT 146 H Alkaline Phosphatase 244 H Assessment & Plan - Problems (Diagnosis) (1) Respiratory failure Current Visit: No Status: Acute Qualifiers: Chronicity: unspecified (2) Bilateral pneumonia Current Visit: No Status: Acute Qualifiers: Pneumonia type: aspiration pneumonia Lung location: unspecified part of lung (3) Hypoxemia Current Visit: No Status: Acute (4) Cerebral palsy Current Visit: No Status: Chronic Qualifiers: Cerebral palsy type: spastic quadriplegic Qualified Code(s): G80.0 - Spastic quadriplegic cerebral palsy (5) On tube feeding diet Current Visit: No Status: Chronic (6) Scoliosis Current Visit: No Status: Chronic Qualifiers: Scoliosis type: unspecified scoliosis (7) Seizure disorder Current Visit: No Status: Chronic - Plan Plan: 1. Continue with IV antibiotics 2. Awaiting sputum and blood culture 3. Repeat chest x-ray 4. CT scan of the chest has been reviewed 5. Pulmonary consultation 6. Continue with nebs as needed 7. O2 per protocol 8. Continue with gentle hydration 9. Repeat labs including CBC and renal function in a.m. 10. GI and DVT prophylaxis Discharge Plan: Home Plan to discharge in: Greater than 2 days - Advance Directives Does patient have a Living Will: No Does patient have a Durable POA for Healthcare: No - Code Status/Comfort Care Code Status Assessed: Yes Code Status: Full Code Critical Care: No Time Spent Managing PTS Care (In Minutes): 45
[2023-11-14] MEDS ORDERED: METHYLPREDNISOLONE 40 MG INJ IV SCH (18:00)
[2023-11-14] MEDS ORDERED: ALBUTEROL 2.5 MG/3 ML NEB SOL ONE (19:04)
[2023-11-14] MEDS ORDERED: IPRATROPIUM BROM 0.5MG/2.5ML ONE (19:05)
[2023-11-14] MEDS: IPRATROPIUM BROM 0.5MG/2.5ML NEB SCH (19:09)
[2023-11-14] MEDS: ALBUTEROL 2.5 MG/3 ML NEB SOL NEB SCH (19:09)
[2023-11-14] MEDS: ZONISAMIDE PO SCH (21:00)
[2023-11-14] MEDS ORDERED: JEVITY 1.2 CAL LIQUID 1,000 ML BOT FT SCH (21:00)
[2023-11-14] MEDS: ZINC 50 MG FT SCH (21:00)
[2023-11-14] MEDS: CLOBAZAM 10 MG FT SCH (21:00)
[2023-11-14] MEDS: Pantoprazole (granules) 40 MG/BLIST PACKET FT SCH (21:00)
[2023-11-14] MEDS: levETIRAcetam 500 MG TAB FT SCH (21:00)
[2023-11-14 21:28] VITALS: BMI 21.9
[2023-11-14] MEDS: LACOSAMIDE 50 MG TABLET FT SCH (22:00)
[2023-11-14] MEDS: ENOXAPARIN 40 MG/0.4 ML SQ SCH (22:21)
[2023-11-14] MEDS: Levofloxacin 750mg IV 750 MG/150 ML BAG IV SCH (22:21)
[2023-11-14] MEDS: guaiFENesin 100 MG/5 ML UCUP FT SCH (22:22)
[2023-11-14] MEDS: METHYLPREDNISOLONE 40 MG INJ IV SCH (22:22)
[2023-11-14] MEDS: VITAMIN D 1000 UNIT TAB FT SCH (22:23)
[2023-11-14] MEDS: NA CHLORIDE 0.9% 1,000 ML IV SCH (22:23)
[2023-11-15 05:05] LABS: Absolute Lymphocytes (CBC) 0.4 K/uL (0.7-4.9); Absolute Monocytes 0.1 K/uL (0.1-1.3); Absolute Neutrophil 3.7 K/uL (1.8-8.0); Basophils % 0.1 % (0-1.3); Eosinophils % 0.1 % (0-4.4); Hematocrit 40.7 % (39.6-49.0); Hemoglobin 13.7 g/dL (13.6-17.9); Lymphocytes % 10.4 % (15.3-44.8); MCH 31.8 pg (27.0-35.0); MCHC 33.6 g/dL (32.0-36.0); MCV 94.4 fL (80-100); MPV 9.2 fL (7.6-11.3); Monocytes % 1.8 % (3.3-12.3); Neutrophils % 87.6 % (41.7-73.7); Nucleated Red Blood Cells % 0.1 % (0-0); Platelets 194 thou/uL (152-406); RBC Red Blood Cell Count 4.31 M/uL (4.33-5.43); Red Cell Distribution Width 13.4 % (12.1-15.2)
[2023-11-15 05:20] LABS: Albumin 2.8 g/dL (3.4-5.0); Albumin/Globulin Ratio 0.6 (1.1-1.8); Anion Gap 8.6 mEq/L (5.0-15.0); Bilirubin Total 0.3 mg/dL (0.2-1.0); Globulin 4.8 g/dL (2.3-3.5); Magnesium 1.7 mg/dL (1.6-2.4); Phosphorus 3.3 mg/dL (2.5-4.9); Potassium 3.6 mEq/L (3.5-5.1); Protein, Total 7.6 g/dL (6.4-8.2)
[2023-11-15 05:50] LABS: Band Neutrophils 36 % (0-1); Blood Morphology Comment NOT SEEN (NOT SEEN); Differential Total Cells Count 100; Lymphocytes 12 % (15-42); Monocytes 0 % (0-10); Platelet Estimate ADEQ; Segmented Neutrophils 52 % (40-80); Toxic Granulation 2+
[2023-11-15] MEDS: MAGNESIUM SULFATE 1 gm IVPB 1 GM/100 ML BAG IV ONE (05:56)
--- NOTE | 2023-11-15 06:12 | P.PN ---
Subjective Date of Service: 11/15/23 Chief Complaint: shortness of breath Assessment and Plan - Problems (Diagnosis) (1) Bilateral pneumonia Current Visit: Yes Status: Acute Qualifiers: Pneumonia type: due to unspecified organism Lung location: unspecified part of lung Qualified Code(s): J18.9 - Pneumonia, unspecified organism (2) Hypoxemia Current Visit: Yes Status: Acute (3) Cerebral palsy Current Visit: Yes Status: Chronic Qualifiers: Cerebral palsy type: spastic quadriplegic Qualified Code(s): G80.0 - Spastic quadriplegic cerebral palsy (4) Scoliosis Current Visit: Yes Status: Chronic Qualifiers: Scoliosis type: unspecified scoliosis (5) Seizure disorder Current Visit: Yes Status: Chronic (6) On tube feeding diet Current Visit: Yes Status: Chronic (7) Candidal dermatitis Current Visit: Yes Status: Acute - Plan Bilateral pneumonia Hypoxemia Cerebral palsy Scoliosis Seizure disorder Status enteral feeding Danielle dermatitis * Patient was brought to the hospital due to worsening cough, fever and low oxygen levels * Chest x-ray showing bilateral pulmonary centesis * Vital signs blood pressure 119/84, pulse 76, respiration 18, temperature 97.3, pulse ox 91% on room air. * Oxygen 2 L via nasal cannula, titrate to keep the saturation above 92%, bronchodilators, antibiotics Zosyn and vancomycin,IV fluid started * Close monitoring of vital signs * Monitor electrolytes and replete * Medication reconciliation and resume as appropriate * Aspiration precautions, head of the bed above 30 degrees * Oral suctioning as needed, skin care pressure ulcer precautions * PEG tube feeding Jevity 1.2, 1 can 4 times daily * Patient's Sister Liane Medrano POA [phone] CODE STATUS full code * Diet tube feeding Jevity 1.2 * DVT prophylaxis Lovenox Discharge Plan: Home Plan to discharge in: 48 Hours - Advance Directives Does patient have a Living Will: Yes Does patient have a Durable POA for Healthcare: Yes - Code Status/Comfort Care Code Status Assessed: Yes (full code) Code Status: Full Code Physician Review: Patient Assessed, Agree with Above Assessment and Plan Critical Care: No Time Spent Managing Pts Care (In Minutes): 35 (minutes) Review of Systems per HPI Physical Examination - Vital Signs Temperature: 95.4 F Blood Pressure: 143/85 Pulse: 71 Respirations: 20 Pulse Ox (%): 94 - Physical Exam General: Alert, In no apparent distress, Oriented x3 HEENT: Atraumatic, Normocephalic Neck: 2+ carotid pulse no bruit, JVD not distended Respiratory: Normal air movement, Expiratory wheezes Cardiovascular: Normal pulses, Regular rate/rhythm Capillary refill: <2 Seconds Gastrointestinal: Normal bowel sounds, Soft and benign Musculoskeletal: No swelling, No contractures Integumentary: No breakdown, No significant lesion Neurological: Normal strength at 5/5 x4 extr, Cranial nerves 3-12 intact - Studies Laboratory Data (last 24 hrs) 11/14/23 11/14/23 11/14/23 13:24 13:24 13:24 WBC 8.90 Hgb 14.9 Hct 44.7 Plt Count 234 PT 11.3 INR 1.01 APTT 43.6 H Sodium 136 Potassium 3.7 BUN 18 Creatinine 0.50 L Glucose 119 H Total Bilirubin 0.3 AST 39 H ALT 146 H Alkaline Phosphatase 244 H Assessment And Plan - Plan Assessment plan Acute hypoxic respiratory failure secondary to pneumonia Discharge Plan: Home Plan to discharge in: 48 Hours - Code Status/Comfort Care Code Status: Full Code Critical Care: No Time Spent Managing PTS Care (In Minutes): 35
--- NOTE | 2023-11-15 06:18 | P.PN ---
Date of Service: 11/15/23 Subjective Date of Service: 11/15/23 Chief Complaint: shortness of breath Admitted for shortness of breath, expiratory wheezes High risk for aspiration Review of Systems per HPI Physical Examination - Vital Signs reviewed - Physical Exam General: Alert, In no apparent distress, responds to verbal HEENT: Atraumatic, Normocephalic Neck: 2+ carotid pulse no bruit, JVD not distended Respiratory: Normal air movement, Expiratory wheezes Cardiovascular: Normal pulses, Regular rate/rhythm Capillary refill: <2 Seconds Gastrointestinal: Normal bowel sounds, Soft and benign Musculoskeletal: No swelling, No contractures Integumentary: No breakdown, No significant lesion Neurological: Normal strength at 5/5 x4 extr, Cranial nerves 3-12 intact Assessment and Plan - Problems (Diagnosis) (1) Bilateral pneumonia Current Visit: Yes Status: Acute Qualifiers: Pneumonia type: due to unspecified organism Lung location: unspecified part of lung Qualified Code(s): J18.9 - Pneumonia, unspecified organism (2) Hypoxemia Current Visit: Yes Status: Acute (3) Cerebral palsy Current Visit: Yes Status: Chronic Qualifiers: Cerebral palsy type: spastic quadriplegic Qualified Code(s): G80.0 - Spastic quadriplegic cerebral palsy (4) Scoliosis Current Visit: Yes Status: Chronic Qualifiers: Scoliosis type: unspecified scoliosis (5) Seizure disorder Current Visit: Yes Status: Chronic (6) On tube feeding diet Current Visit: Yes Status: Chronic (7) Candidal dermatitis Current Visit: Yes Status: Acute - Plan Bilateral pneumonia Hypoxemia Cerebral palsy Scoliosis Seizure disorder Status enteral feeding Danielle dermatitis * presents hospital due to cough, fever and low oxygen levels * Chest x-ray showing * Oxygen 2 L via nasal cannula, titrate to keep the saturation above 92%, bronchodilators, antibiotics Zosyn and vancomycin,IV fluid started * Close monitoring of vital signs * Monitor electrolytes and replete * Medication reconciliation and resume as appropriate * Aspiration precautions, head of the bed above 30 degrees * Oral suctioning as needed, skin care pressure ulcer precautions * PEG tube feeding Jevity 1.2, 1 can 4 times daily * Patient's Sister Liane WILKINSON [phone] CODE STATUS full code * Diet tube feeding Jevity 1.2 * DVT prophylaxis Lovenox Discharge Plan: Home Plan to discharge in: 48 Hours - Advance Directives Does patient have a Living Will: Yes Does patient have a Durable POA for Healthcare: Yes - Code Status/Comfort Care Code Status Assessed: Yes (full code) Code Status: Full Code Physician Review: Patient Assessed, Agree with Above Assessment and Plan Critical Care: No Time Spent Managing Pts Care (In Minutes): 35 (minutes)
[2023-11-15] MEDS: LACOSAMIDE 100 MG FT SCH ×2 (09:00)
[2023-11-15] MEDS ORDERED: LACOSAMIDE 100 MG FT SCH (09:00)
[2023-11-15] MEDS: POTASSIUM 25 MEQ EFFERV TAB PO ONE (09:05)
[2023-11-15] MEDS: ASCORBIC ACID 500 MG TABLET PO SCH (09:06)
[2023-11-15] MEDS: CETIRIZINE HCL 5 MG TABLET FT SCH (09:06)
--- NOTE | 2023-11-15 09:36 | RAD REPORT ---
EXAM DESCRIPTION: RAD - Chest Single View - 11/15/2023 9:29 am CLINICAL HISTORY: mucous plugging/ COMPARISON: Chest Single View dated 11/14/2023; Chest Single View dated 10/31/2023; Chest Single View d ated 09/11/2023; Chest Single View dated 08/28/2023; Thorax Wo Con dated 11/14/2023; Thorax Wo Con dated FINDINGS: Lines: None. Lungs: Mild increased opacities are present in the lung bases bilaterally. Decreased lung volumes. Pleural: No significant pleural effusions or pneumothorax. Cardiac: The heart size is within normal limits. Mediastinum: Within normal limits. Bones: No acute fractures. Other: Gastrostomy tube in the upper abdomen. IMPRESSION: Decreased lung volumes with mild increased basilar opacities. This could reflect increas ed atelectasis secondary to mucous plugging given the clinical concern. No lobar collapse. Chronic ch anges in the lung bases also present.
--- NOTE | 2023-11-15 11:24 | P.CNS ---
Date of Consult: 11/15/23 Reason for Consult: Chest congestion hypoxemia Chief Complaint: Chest congestion hypoxemia History of Present Illness: Patient is 38 years of age has cerebral palsy history obtained from daughter caregiver at the bedside he has been having problems made this ER multiple hospital admissions was transferred to [facility] at 1 time patient was intubated mated for seizures was brought again here in the emergency room on October 30 was treated with cephalexin and macrolide therapy at this time was precipitated by cough congestion hypoxemia. Allergies tramadol Adverse Reaction (Verified 05/10/23 18:01) Anaphylaxis Home Medications: Cholecalciferol (Vitamin D3) [Vitamin D3] 2,000 unit FT BEDTIME 06/26/22 Clobazam [Onfi] 10 mg FT BEDTIME 06/26/22 Jevity 1.2 Ramses Liquid See Rx Instructions .ROUTE .COMPLEX 06/26/22 Lacosamide [Vimpat] 300 mg FT BID 06/26/22 Levetiracetam [Keppra] 2,000 mg FT BID 06/26/22 Zinc Gluconate [Zinc] 50 mg FT BID 06/26/22 Cetirizine HCl [Zyrtec] 10 mg FT DAILY 05/10/23 Ascorbic Acid [Vitamin C] 1,000 mg PO DAILY 11/14/23 Esomeprazole Magnesium 10 mg PO BID 11/14/23 Guaifenesin [Cough Syrup] 10 ml PO BID 11/14/23 Polyethyl Gly 3350 [Glycolax*] 17 gm FT 1300 11/14/23 Zonisamide [Zonisade] 2.5 ml PO BID 11/14/23 - Past Medical/Surgical History Diabetic: No -: Celebral palsy -: Seizures -: scoliosis -: CONSTIPATION -: bilateral leg surgery -: dental extraction -: PEG Tube Psychosocial/ Personal History: Lives at home with family, has caregiver, DARLENE PINEDA TEL# [phone] - Family History Father Medical History: Heart disease, Hypertension, Cancer Notes: skin Ca Mother Medical History: Lung disease Notes: Covid - Social History Smoking Status: Unknown if ever smoked Alcohol use: No CD- Drugs: No Caffeine use: No Review of Systems is unable to be obtained Physical Examination Temp Pulse Resp BP Pulse Ox 95.6 F L 79 12 112/72 92 11/15/23 08:00 11/15/23 08:00 11/15/23 08:00 11/15/23 08:00 11/15/23 08:00 General: Alert, Unresponsive Respiratory: Diminished, Expiratory wheezes Cardiovascular: No edema, Regular rate/rhythm, Normal S1 S2 Gastrointestinal: Normal bowel sounds, Soft and benign, Non-distended Laboratory Data (last 24 hrs) 11/14/23 11/14/23 11/14/23 13:24 13:24 13:24 WBC 8.90 Hgb 14.9 Hct 44.7 Plt Count 234 PT 11.3 INR 1.01 APTT 43.6 H Sodium 136 Potassium 3.7 BUN 18 Creatinine 0.50 L Glucose 119 H Total Bilirubin 0.3 AST 39 H ALT 146 H Alkaline Phosphatase 244 H - Problems (1) Bilateral pneumonia Current Visit: No Status: Acute Plan: Patient is 38 years away with cerebral palsy and care of by his sister has a caregiver having recurrent congestion with multiple courses of antibiotics scan shows bibasilar infiltrate he is most likely has an infection with resistant organisms cultures are pending continue with levofloxacin add vancomycin nasal culture for MRSA as reviewed abnormal LFTs patient's white count is normal saturation satisfactory on 2 L of nasal cannula oxygen patient has a vest at home use regularly glycopyrrolate was discontinued recently was started on guaifenesin and is concerned about his extreme chest congestion productive cough and intermittent hypoxemia avoid steroids for now use bronchodilators instead add ipratropium nebulized in addition to albuterol Qualifiers: Pneumonia type: due to unspecified organism Lung location: unspecified part of lung Qualified Code(s): J18.9 - Pneumonia, unspecified organism
[2023-11-15] MEDS: VANCOMYCIN 1.75 GM in NA CHLORIDE 0.9% 500 ML IVPB ONE (12:19)
[2023-11-15 12:41] LABS: Arterial Blood Carboxyhemoglob 1.1 % (0-1.5); Blood Gas Oxyhemoglobin 90.8 % (94-97); Blood Gas THB 15.1 g/dl (12-18); Blood O2 Saturation 92.7 % (92-98.5)
[2023-11-15] MEDS: IPRATROPIUM BROM 0.5MG/2.5ML NEB SCH (13:06)
[2023-11-15] MEDS: POLYETHYL GLY 3350 17 GM/DOSE FT SCH (13:32)
--- NOTE | 2023-11-15 14:08 | EKG ---
Test Date: 2023-11-14 Test Time: 14:13:37 Ophthalmologist Retina Specialist: GISELLE MEASUREMENT RESULTS: Intervals: Rate: 88 UT: 156 QRSD: 110 QT: 376 QTc: 454 K[place]haw: P: 46 UT: 156 QRS: 84 T: 40 INTERPRETIVE STATEMENTS: Normal sinus rhythm Normal ECG Compared to ECG 10/31/2023 04:53:09 No significant changes Electronically Signed On 11-15-23 14:05:44 CDT by Rogelio Pearce
[2023-11-15] MEDS: ESOMEPRAZOLE FT SCH (21:00)
[2023-11-15] MEDS: ZINC SULFATE 220 MG CAP FT SCH (21:00)
[2023-11-16] MEDS: VANCOMYCIN 1.25 GM in NA CHLORIDE 0.9% 250 ML IVPB SCH (00:53)
[2023-11-16 07:22] LABS: Anion Gap 9.8 mEq/L (5.0-15.0); Magnesium 1.7 mg/dL (1.6-2.4); Potassium 3.8 mEq/L (3.5-5.1)
[2023-11-16 08:22] LABS: Absolute Lymphocytes (CBC) 1.1 K/uL (0.7-4.9); Absolute Monocytes 0.7 K/uL (0.1-1.3); Absolute Neutrophil 3.9 K/uL (1.8-8.0); Basophils % 0.1 % (0-1.3); Eosinophils % 0.1 % (0-4.4); Hematocrit 38.9 % (39.6-49.0); Hemoglobin 13.1 g/dL (13.6-17.9); Lymphocytes % 19.4 % (15.3-44.8); MCH 31.8 pg (27.0-35.0); MCHC 33.6 g/dL (32.0-36.0); MCV 94.7 fL (80-100); MPV 8.9 fL (7.6-11.3); Monocytes % 11.8 % (3.3-12.3); Neutrophils % 68.6 % (41.7-73.7); Nucleated Red Blood Cells % 0.2 % (0-0); Platelets 186 thou/uL (152-406); RBC Red Blood Cell Count 4.11 M/uL (4.33-5.43); Red Cell Distribution Width 13.3 % (12.1-15.2)
[2023-11-16] MEDS: POTASSIUM 25 MEQ EFFERV TAB PO ONE (10:32)
[2023-11-16] MEDS: MAGNESIUM SULFATE 1 gm IVPB 1 GM/100 ML BAG IV ONE (10:32)
[2023-11-16 12:34] VITALS: BP 120/70; TEMP 98
--- NOTE | 2023-11-16 12:37 | P.PN ---
Subjective Date of Service: 11/15/23 Subjective: No new changes, No C/O voiced, Improving Review of Systems 10-point ROS is otherwise unremarkable Physical Examination - Vital Signs Temperature: 98 F (Reviewed) Blood Pressure: 120/70 Pulse: 80 Respirations: 18 Pulse Ox (%): 85 - Physical Exam General: Alert, In no apparent distress, Confused HEENT: Atraumatic, PERRLA, EOMI Neck: Supple, JVD not distended Respiratory: Diminished, Expiratory wheezes Cardiovascular: Regular rate/rhythm, Normal S1 S2, No murmurs Gastrointestinal: Normal bowel sounds, Soft and benign, Non-distended, No tenderness, Other (PEG/J-tube in place) Musculoskeletal: No clubbing, No swelling, No tenderness, Contractures Integumentary: No rashes Neurological: Sensation intact, Cranial nerves 3-12 intact, Abnormal speech, Abnormal strength, Abnormal tone - Studies Laboratory Data (last 24 hrs) 11/15/23 04:17 Sodium 137 Potassium 3.6 BUN 15 Creatinine 0.49 L Glucose 140 H Phosphorus 3.3 Magnesium 1.7 Total Bilirubin 0.3 AST 36 ALT 124 H Alkaline Phosphatase 222 H Triglycerides 82 Cholesterol 156 HDL Cholesterol 62 H Cholesterol/HDL Ratio 2.52 Medications List Reviewed: Yes Assessment & Plan - Problems (Diagnosis) (1) Respiratory failure Current Visit: No Status: Acute Qualifiers: Chronicity: unspecified (2) Bilateral pneumonia Current Visit: No Status: Acute Qualifiers: Pneumonia type: aspiration pneumonia Lung location: unspecified part of lung (3) Hypoxemia Current Visit: No Status: Acute (4) Cerebral palsy Current Visit: No Status: Chronic 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 Continue with IV antibiotics 2. Awaiting culture results at this time 3. Repeat chest x-ray 4. CT scan of the chest has been reviewed 5. Pulmonary consultation appreciated 6. Continue with nebs as needed 7. O2 per protocol 8. Continue with gentle hydration 9. Repeat labs 10. GI and DVT prophylaxis Discharge Plan: Home Plan to discharge in: [facility] than 2 days - Advance Directives Does patient have a Living Will: No Does patient have a Durable POA for Healthcare: No - Code Status/Comfort Care Code Status: Full Code Critical Care: No Time Spent Managing PTS Care (In Minutes): 35
--- NOTE | 2023-11-16 12:40 | P.PN ---
Date of Service: 11/16/23 Subjective Patient continues to improve with no new complaints. Patient clinical symptoms are improved. Oxygenation is stable. Arranging for home oxygen if patient qualifies today. Otherwise I anticipate patient be able to discharge home with outpatient follow-up over the next 24 to 48 hours. Physical Examination - Vital Signs Reviewed - Physical Exam General: Alert, In no apparent distress, Confused Respiratory: Diminished, Expiratory wheezes Cardiovascular: Regular rate/rhythm, Normal S1 S2, No murmurs Gastrointestinal: Normal bowel sounds, Soft and benign, Non-distended, No tenderness, Other (PEG/J-tube in place) Musculoskeletal: No clubbing, No swelling, No tenderness, Contractures Neurological: Patient with contractures Assessment & Plan - Problems (Diagnosis) (1) Respiratory failure Current Visit: No Status: Acute Qualifiers: Chronicity: unspecified (2) Bilateral pneumonia Current Visit: No Status: Acute Qualifiers: Pneumonia type: aspiration pneumonia Lung location: unspecified part of nichole ng (3) Hypoxemia Current Visit: No Status: Acute (4) Cerebral palsy Current Visit: No Status: Chronic 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 Continue with IV antibiotics 2. Cultures are negative at this time 3. Repeat chest x-ray with no significant worsening 4. CT scan of the chest has been reviewed 5. Pulmonary consultation appreciated 6. Continue with nebs as needed 7. O2 per protocol; arrange for home oxygen 8. Hep-Lock IV 9. GI and DVT prophylaxis Discharge Plan: Home Plan to discharge in: Greater than 2 days - Advance Directives Does patient have a Living Will: No Does patient have a Durable POA for Healthcare: No - Code Status/Comfort Care Code Status: Full Code Critical Care: No Time Spent Managing PTS Care (In Minutes): 35
[2023-11-16 13:55] VITALS: O2SAT 92
--- NOTE | 2023-11-16 14:35 | P.DS ---
Discharge Date: 11/16/23 Disposition: ROUTINE DISCHARGE Discharge Condition: GOOD Reason for Admission: Hypoxemia; shortness of breath - Problems (1) Respiratory failure Current Visit: No Status: Acute Qualifiers: Chronicity: unspecified (2) Bilateral pneumonia Current Visit: No Status: Acute Qualifiers: Pneumonia type: aspiration pneumonia Lung location: unspecified part of lung (3) Hypoxemia Current Visit: No Status: Acute (4) Cerebral palsy Current Visit: No Status: Chronic Qualifiers: Cerebral palsy type: spastic quadriplegic Qualified Code(s): G80.0 - Spastic quadriplegic cerebral palsy (5) On tube feeding diet Current Visit: No Status: Chronic (6) Scoliosis Current Visit: No Status: Chronic Qualifiers: Scoliosis type: unspecified scoliosis (7) Seizure disorder Current Visit: No Status: Chronic Brief History of Present Illness: Patient is a 38-year-old gentleman came to the hospital with shortness of breath. Patient was found to be hypoxic and admitted to the hospital. Patient was in the hospital few weeks ago with aspiration debility. Patient was discharged and has been doing well but he still been a little congested. Patient also had a breakthrough seizure during last hospitalization and was started on antiepileptics. Patient has been on 5 antiepileptics at this time. Patient's sister states they are reducing a couple of these. Patient has been congested quite a bit. Patient's sharepoint engineer states that his oxygen level has been dropping so they brought back into the hospital. In the ER patient appears to have some consolidative changes. Patient looks to have bilateral pneumonia. Will continue with IV antibiotic therapy, and patient will be admitted to the hospital for further evaluation. Hospital Course: Patient has done well during hospital stay. Patient's clinical symptoms have improved. Patient will continue with medical therapy as an outpatient. Patient will follow-up with consultants and PCP as an outpatient in 1 to 2 weeks. Vital Signs/Physical Exam: Temp Pulse Resp BP Pulse Ox 98 F 80 18 120/70 85 L 11/16/23 12:37 11/16/23 12:37 11/16/23 12:37 11/16/23 12:37 11/16/23 12:37 General: Alert Laboratory Data at Discharge: WBC 5.70 thou/uL (4.3-10.9) 11/16/23 08:07 Hgb 13.1 g/dL (13.6-17.9) L 11/16/23 08:07 Hct 38.9 % (39.6-49.0) L 11/16/23 08:07 Plt Count 186 thou/uL (152-406) 11/16/23 08:07 PT 11.3 SECONDS (9.4-12.5) 11/14/23 13:24 INR 1.01 11/14/23 13:24 APTT 43.6 SECONDS (24.3-36.9) H 11/14/23 13:24 Sodium 142 mEq/L (136-145) D 11/16/23 06:40 Potassium 3.8 mEq/L (3.5-5.1) 11/16/23 06:40 BUN 16 mg/dL (7-18) 11/16/23 06:40 Creatinine 0.52 mg/dL (0.70-1.30) L 11/16/23 06:40 Glucose 105 mg/dL (74-106) 11/16/23 06:40 Phosphorus 3.3 mg/dL (2.5-4.9) 11/15/23 04:17 Magnesium 1.7 mg/dL (1.6-2.4) 11/16/23 06:40 Total Bilirubin 0.3 mg/dL (0.2-1.0) 11/15/23 04:17 AST 36 U/L (15-37) 11/15/23 04:17 ALT 124 U/L (16-61) H 11/15/23 04:17 Alkaline Phosphatase 222 U/L (45-117) H 11/15/23 04:17 Triglycerides 82 mg/dL (<150) 11/15/23 04:17 Cholesterol 156 mg/dL (<200) 11/15/23 04:17 HDL Cholesterol 62 mg/dL (40-60) H 11/15/23 04:17 Cholesterol/HDL Ratio 2.52 11/15/23 04:17 Home Medications: Cholecalciferol (Vitamin D3) [Vitamin D3] 2,000 unit FT BEDTIME 06/26/22 Clobazam [Onfi] 10 mg FT BEDTIME 06/26/22 Jevity 1.2 Ramses Liquid See Rx Instructions .ROUTE .COMPLEX 06/26/22 Lacosamide [Vimpat] 300 mg FT BID 06/26/22 Levetiracetam [Keppra] 2,000 mg FT BID 06/26/22 Zinc Gluconate [Zinc] 50 mg FT BID 06/26/22 Cetirizine HCl [Zyrtec] 10 mg FT DAILY 05/10/23 Ascorbic Acid [Vitamin C] 1,000 mg PO DAILY 11/14/23 Esomeprazole Magnesium 10 mg PO BID 11/14/23 Guaifenesin [Cough Syrup] 10 ml PO BID 11/14/23 Polyethyl Gly 3350 [Glycolax*] 17 gm FT 1300 11/14/23 Zonisamide [Zonisade] 2.5 ml PO BID 11/14/23 Budesonide [Pulmicort] 0.5 mg NEB BID #60 amp 11/16/23 Levofloxacin [Levaquin] 500 mg PO DAILY #5 tab 11/16/23 Sulfameth/Trimethoprim [Bactrim Pedi Suspension] 20 ml PO DAILY #200 ml 11/16/23 Zonisamide [Zonisade] 0 ml PO BID 11/16/23 New Medications: Sulfameth/Trimethoprim [Bactrim Pedi Suspension] 20 ml PO DAILY #200 ml Levofloxacin [Levaquin] 500 mg PO DAILY #5 tab Budesonide [Pulmicort] 0.5 mg NEB BID #60 amp Physician Discharge Instructions: -DC IV and DC home -Follow-up with PCP in 1 to 2 weeks -Follow-up with pulmonary in 1 to 2 weeks -Follow-up with neurology in 2 to 4 weeks -Please call Dr. Nevarez at [phone] if any questions regarding hospital stay -Please call nursing station at [phone] if any nursing or medication questions -Return to the emergency room if symptoms worsen Diet: TFs Activity: Fall precautions Followup: OOT,OOT [Primary Care Provider] - Time spent managing pt's care (in minutes): 35
--- NOTE | 2023-11-19 10:00 | EEG ---
CHART: [id number] TEST ID#: [id number] DATE OF STUDY: 11-15-2023 THE EEG WAS RECORDED PORTABLE IN THE PATIENT'S ROOM ON A 17 CHANNEL MACHINE. ELECTRODES WERE APPLIED IN THE USUAL MANNER USING THE INTERNATIONAL 10-20 SYSTEM. THE WAKING BACKGROUND RHYTHM IN THIS RECORD CONSISTS OF WELL DEVELOPED AND WELL ORGANIZED WAVES OF 10 HZ., MAXIMAL IN THE POSTERIOR HEAD REGIONS WHICH ATTENUATE NORMALLY WITH EYE OPENING. LOW VOLTAGE 18-22 HZ ACTIVITY IS EXPRESSED IN THE FRONTAL REGIONS. THERE ARE NO FOCAL OR LATERALIZING FEATURES. NO EPILEPTIFORM ACTIVITY APPEARS. SLEEP DID NOT OCCUR. HYPERVENTILATION WAS NOT PERFORMED. PHOTIC STIMULATION PRODUCED NO DRIVING BILATERALLY. IMPRESSION: NORMAL EEG FOR THE AGE OF THE PATIENT IN [place].
== END 2023-11-16 17:34 | disposition home health service (06) | DRG 177 ==
LOC: ER 12:38 → ERHOLD 17:18 → 2ND 19:04 → OBSVTOIN 11-15 14:39
PROVIDERS: ADMIT Hospitalist; ATTEND Hospitalist
PROC: 4A033R1 Measurement of Arterial Saturation, Peripheral, Percutaneous Approach (ICD-10-PCS; principal; 2023-11-15)
DX: J69.0 Pneumonitis due to inhalation of food and vomit (principal); G80.0 Spastic quadriplegic cerebral palsy; G92.9 Unspecified toxic encephalopathy; J96.01 Acute respiratory failure with hypoxia; G93.1 Anoxic brain damage, not elsewhere classified; M41.9 Scoliosis, unspecified; G40.909 Epilepsy, unspecified, not intractable, without status epilepticus; Z88.5 Allergy status to narcotic agent; Z79.899 Other long term (current) drug therapy
CPT/HCPCS: 36415; 36600; 71045; 71250; 80048; 80053; 80061; 82550; 82805; 83605; 83615; 83735; 83880; 84100; 85025; 85610; 85730; 87040; 87070; 87205; 93005; 94640; 94760; 95816; 99285; G0378; J1650; J2405; J2919; J3475; J7030; J7040; J7050; J7613; J7644